=== PATIENT | female | born 1955 | race Caucasian/White ===

== ENCOUNTER 2018-02-26 10:04 | Inpatient (IN) | payer BC ==
--- NOTE | 2018-02-26 11:55 | PDOC ---
History of Present Illness - General Chief Complaint: Edema Stated Complaint: EDEMA, BLURRY VISION Time Seen by Provider: 02/26/18 11:53 History Source: Patient Exam Limitations: Other (Pt poor historian, poor compliance) - History of Present Illness Initial Comments: Pt is a 63 yo F, with PMH of IDDM and HTN, who is presenting with complaints of blurry vision, dyspnea when walking, and worsening b/l LE edema. Pt states starting about 3 weeks ago, she has "not been feeling herself" as she has been taking care of her in the hospital. She has not been taking any of her medications as prescribed. She admits to blurry vision (chronic "retina" issue, which she sees ophthomology for), worsening dyspnea with exertion, and b/l LE edema. She has been taking Lasix from her PCP (Dr. Naidu) last week, which helped the b/l edema minimally, but has not completely improved. PT states she is completely out of her metformin and valsartan. BGM at home yesterday was 150. Pt has been taking cefuroxime BID for cellulitis of the L arm, which she states occurred after scratching from a "bed bug" infestation. Pt denies any fevers/chills, headache, chest pain, palpitations, nausea/vomiting, abdominal pain, urinary symptoms, blood in urine or stool, diarrhea/constipation, or leg swelling. Social: Pt denies any cigarette, alcohol, or drug use. Pt denies any recent travel or sick contacts. Surgical: no relevant history Family: no relevant history 02/26/18 15:47 Past History - Travel Traveled outside of the country in the last 30 days: No Close contact w/someone who was outside of country & ill: No - Past Medical History Allergies/Adverse Reactions: Allergies Allergy/AdvReac Type Severity Reaction Status Date / Time No Known Allergies Allergy Verified 02/26/18 12:36 Home Medications: Ambulatory Orders Amlodipine Besylate [Norvasc -] 5 mg PO DAILY tablet 06/22/15 Insulin (Levemir) [Levemir Vial] 12 units SQ HS ml 06/22/15 Insulin (Levemir) [Levemir Vial] 15 units SQ AM ml 06/22/15 Multivitamins [Multivit ([facility] Formulary)] 1 tab PO DAILY tab 06/22/15 Valsartan [Diovan] 80 mg PO DAILY tablet 06/22/15 Metformin HCl ER 750 mg PO BID 08/16/15 Ammonium Lactate Cream [Lac-Hydrin 12% Cream -] 1 applic TP DAILY #1 tube COPD: No DVT: No Diabetes: Yes GI Disorders: Yes (IBS) HTN: Yes Hypercholesterolemia: No - Surgical History Cardiac Surgery: No Lung Surgery: No - Immunization History Immunization Up to Date: Yes - Suicide/Smoking/Psychosocial Hx Smoking History: Never smoked Have you smoked in the past 12 months: No Information on smoking cessation initiated: No Hx Alcohol Use: No Drug/Substance Use Hx: No Substance Use Type: None Hx Substance Use Treatment: No Review of Systems - Review of Systems Able to Perform ROS?: Yes Is the patient limited Occitan proficient: No Constitutional: Yes: Weight Stable. No: Chills, Diaphoresis, Fever, Loss of Appetite, Weakness HEENTM: Yes: See HPI, Blurred Vision. No: Recent change in vision, Double Vision, Nose Congestion, Throat Pain, Difficulty Swallowing Respiratory: Yes: Shortness of Breath, SOB with Exertion. No: Cough, Orthopnea , SOB at Rest, Wheezing, Productive cough, Hemoptysis Cardiac (ROS): Yes: See HPI, Edema, Lightheadedness. No: Chest Pain, Irregular Heart Rate, Palpitations, Syncope, Chest Tightness ABD/GI: No: Blood Streaked Bowels, Constipated, Diarrhea, Nausea, Poor Appetite , Poor Fluid Intake, Vomiting, Indigestion, Tarry Stools : No: Burning, Dysuria, Frequency, Hematuria, Pain, Urgency Musculoskeletal: No: Back Pain, Joint Pain Integumentary: No: Rash Neurological: No: Headache, Numbness, Seizure, Weakness, Unsteady Gait, Ataxia, Dizziness Psychiatric: No: Sleep Pattern Change, Change in Appetite Endocrine: No: Increased Urine, Change in Weight Hematologic/Lymphatic: Yes: Anemia. No: Blood Clots, Easy Bleeding, Easy Bruising All Other Systems: Reviewed and Negative *Physical Exam - Vital Signs Last Vital Signs Temp Pulse Resp BP Pulse Ox 98.2 F 78 16 132/70 100 02/26/18 10:15 02/26/18 10:15 02/26/18 10:15 02/26/18 10:15 02/26/18 10:15 - Physical Exam General Appearance: Yes: Nourished, Appropriately Dressed, Obese. No: Apparent Distress HEENT: positive: EOMI, DOMINIQUE, Normal ENT Inspection, Normal Voice, Pharynx Normal , Hearing Grossly Normal. negative: Scleral Icterus (R), Scleral Icterus (L), Pharyngeal Erythema, Tonsillar Exudate, Tonsillar Erythema, Rhinorrhea Neck: positive: Trachea midline, Normal Thyroid, Supple. negative: Tender, Rigid, Decreased range of motion, Lymphadenopathy (R), Lymphadenopathy (L), Rigidity Respiratory/Chest: positive: Rhonchi (coarse breath sounds b/l, worse at the bases). negative: Chest Tender, Lungs Clear, Normal Breath Sounds, Respiratory Distress, Accessory Muscle Use, Rapid RR, Decreased Breath Sounds, Crackles, Wheezing Cardiovascular: positive: Regular Rhythm, Regular Rate, S1, S2, Edema (b/l pitting edema up to mid-shins). negative: JVD, Murmur Vascular Pulses: Carotid (R): 4+, Carotid (L): 4+ Gastrointestinal/Abdominal: positive: Normal Bowel Sounds, Flat, Soft. negative : Tender, Organomegaly, Pulsatile Mass, Distended, Guarding, Rebound Rectal Exam: positive: heme negative stool, normal exam, normal rectal tone, hemorrhoids (mild external, no gross blood). negative: melena Lymphatic: negative: Adenopathy, Tenderness Musculoskeletal: positive: Normal Inspection. negative: CVA Tenderness, Decreased Range of Motion Extremity: positive: Normal Capillary Refill, Normal Range of Motion, Pelvis Stable, Pedal Edema (b/l pedal edema). negative: Normal Inspection, Tender, Cyanosis, Calf Tenderness Integumentary: positive: Normal Color, Dry, Warm. negative: Jaundice, Clammy, Diaphoresis, Rash, Ecchymosis Neurologic: positive: asset protection detective II-XII NML intact, Fully Oriented, Alert, Normal Mood/ Affect, Normal Response, Motor Strength 5/5 Moderate Sedation - Procedure Monitoring Vital Signs: Procedure Monitoring Vital Signs Temperature 98.2 F 02/26/18 10:15 Pulse Rate 78 02/26/18 10:15 Respiratory Rate 16 02/26/18 10:15 Blood Pressure 132/70 02/26/18 10:15 O2 Sat by Pulse Oximetry (%) 100 02/26/18 10:15 ED Treatment Course - LABORATORY CBC & Chemistry Diagram: 02/26/18 12:15 02/26/18 12:26 Medical Decision Making - Medical Decision Making Pt was seen at bedside, also will be seen by attending Dr. Bailey. Pt presenting with complaints of blurry vision, dyspnea when walking, and worsening b/l LE edema. Pt states starting about 3 weeks ago, she has "not been feeling herself" as she has been taking care of her in the hospital. She has not been taking any of her medications as prescribed. She admits to blurry vision (chronic "retina" issue, which she sees ophthomology for), worsening dyspnea with exertion, and b/l LE edema. She has been taking Lasix from her PCP (Dr. Naidu) last week, which helped the b/l edema minimally, but has not completely improved. PT states she is completely out of her metformin and valsartan. BGM at home yesterday was 150. Pt has been taking cefuroxime BID for cellulitis of the L arm, which she states occurred after scratching from a "bed bug" infestation. Pt denies any fevers/chills, headache, chest pain, palpitations, nausea/vomiting, abdominal pain, urinary symptoms, blood in urine or stool, diarrhea/constipation, or leg swelling. PE showed clear heart and lung sounds, b/l pitting edema up to mid shins. Considering medication non-compliance vs new CHF vs dependent extremity edema vs ACS. Minimal concern for PE/DVT at this time, as pitting edema is b/l and equal, no erythema or pain in legs, vitals stable. Ordered work-up including BGM, CBC, CMP, troponin, ECG, BNP, UA, and chest x- ray. Will continue to reassess pt and monitor for symptomatic improvement. 02/26/18 11:54 CBC: anemia (H/H 7.1/20.7) CMP generally WNL, glucose 188, pt has been non-compliant with medications. Trop .02, BNP 2195 (no baseline BNP for comparison). ECG: NSR, normal intervals, no ST segment changes. 02/26/18 13:53 Dr. Naidu's team (ELECTRIC ENGINE MECHANIC) in ER. She will see the pt, but is seeing other pts at this time. 02/26/18 14:32 [id number] RAD/CHEST PA & LAT Dyspnea, bilateral pedal edema, rule out cardiomegaly. Chest 2 views. Comparison study June 10, 2015. Midline trachea no evidence of widening of the superior mediastinum. Unremarkable contour of the thoracic aorta. Bilateral pleural effusions, left greater than left with bilateral compressive atelectasis. Prominent cardiac silhouette. No evidence of vascular congestive changes. No bulky hilar adenopathy is seen. The visualized osseous structures appear intact. Impression. Bilateral pleural effusions, left greater than the right with compressive atelectasis. No pneumothorax is seen. No evidence of widening of the superior mediastinum. The pulmonary vasculature is normal. Prominent cardiac silhouette. 02/26/18 14:52 Stool for occult blood sent to lab to r/o any bleed. Ordered b/l LE doppler to r/o DVT. 02/26/18 15:42 Pt taken for US. Dr. Naidu's team will see the pt. Fecal occult negative for blood. 02/26/18 16:08 LE doppler showed no evidence of DVT. 02/26/18 18:48 Pt lying comfortably, awaiting bed upstairs. 02/26/18 18:57 *DC/Admit/Observation/Transfer Diagnosis at time of Disposition: Pedal edema Acute heart failure Qualifiers: Heart failure type: unspecified Qualified Code(s): I50.9 - Heart failure, unspecified Diabetes mellitus Qualifiers: Diabetes mellitus type: type 2 Diabetes mellitus assisted insulin use: with middle or intermediate school principal use Diabetes mellitus complication status: with unspecified complications Qualified Code(s): E11.8 - Type 2 diabetes mellitus with unspecified complications - Discharge Dispostion Condition at time of disposition: Stable Decision to Admit order: Yes - Referrals - Patient Instructions - Post Discharge Activity
[2018-02-26 12:47] LABS: BASO % 1.6 % (0-2.0); EOS % 6.3 % (0-4.5); HEMATOCRIT 20.7 % (32.4-45.2); HEMOGLOBIN 7.1 GM/dL (10.7-15.3); LYMPH % 15.9 % (8-40); MEAN CELL VOLUME 79.3 fl (80-96); MEAN PLT VOLUME 7.1 fl (7.5-11.1); MONO % 7.2 % (3.8-10.2); PLATELET COUNT 275 K/MM3 (134-434); RBC 2.62 M/mm3 (3.60-5.2); RDW 14.4 % (11.6-15.6); WHITE BLOOD COUNT 5.8 K/mm3 (4.0-10.0)
[2018-02-26 13:08] LABS: URINE APPEARANCE CLEAR; URINE BILIRUBIN NEGATIVE (<2.0 mg/dL); URINE COLOR LTYELLOW; URINE GLUCOSE (UA) 2+ (NEGATIVE); URINE KETONE NEGATIVE (NEGATIVE); URINE LEUK ESTERASE TRACE (NEGATIVE); URINE NITRITE NEGATIVE (NEGATIVE); URINE PROTEIN 2+ (NEGATIVE); URINE UROBILINOGEN NEGATIVE mg/dL (0.2-1.0)
[2018-02-26 13:10] LABS: ALBUMIN 2.8 g/dl (3.4-5.0); ALK PHOS 88 U/L (45-117); ANION GAP 8 MMOL/L (8-16); BILIRUBIN,TOTAL 0.3 mg/dL (0.2-1); BLOOD UREA NITROGEN 42 mg/dL (7-18); CALCIUM 8.1 mg/dL (8.5-10.1); CHLORIDE 104 mmol/L (98-107); CO2 23 mmol/L (21-32); CREATININE 0.8 mg/dL (0.55-1.3); GLUCOSE,RANDOM 188 mg/dL (74-106); N-TERMINAL BNP 2195.8 pg/ml (5-125); POTASSIUM 4.1 mmol/L (3.5-5.1); SGOT/AST 22 U/L (15-37); SGPT/ALT 24 U/L (13-61); SODIUM 136 mmol/L (136-145); TOT PROT 6.4 g/dl (6.4-8.2)
[2018-02-26 13:15] LABS: EPI CELLS RARE /HPF (FEW); URINE HYALINE CAST 1 /lpf
--- NOTE | 2018-02-26 16:13 | PDOC ---
Attending Attestation - Medical Decision Making EXAM#: TYPE/EXAM: RESULT: [id number] RAD/CHEST PA LAT Impression. Bilateral pleural effusions, left greater than the right with compressive atelectasis. No pneumothorax is seen. No evidence of widening of the superior mediastinum. The pulmonary vasculature is normal. Prominent cardiac silhouette. Reported By: Jeremias Olsen MD 02/26/18 13:54 Documentation prepared by SUNITHA Paz, acting as medical consultant for Fany Bailey MD. 02/26/18 16:32 <Renate Willams - Last Filed: 02/26/18 16:32> - Resident Resident Name: Abbie Norton - ED Attending Attestation I have performed the following: I have examined & evaluated the patient, The case was reviewed & discussed with the resident, I agree w/resident's findings & plan, Exceptions are as noted - HPI HPI: 02/26/18 16:47 The patient is a 63 year old female, with a significant PMH of DM (not compliant with meds) and HTN, who presents to the ED today complaining of dyspnea with exertion, and progressively worsening bilateral LE edema for weeks. Patient states she feels SOB with walking, and both of her legs continue to swell. Patient reports feeling weak and not like herself for weeks, which has progressively worsened with time. Patient saw Dr. Naidu, who put her on Lasix which slightly helped her bilateral LE edema. She also reports progressively worsening blurry vision for 1 year for which she is getting evaluated for by her group exercise instructor. Denies worsening vision recently. No headache. The patient denies chest pain, and dizziness. No recent immobility or surgery. Denies fever, chills, nausea, vomit, diarrhea and constipation. Denies dysuria, frequency, urgency and hematuria. Allergies: NKA Past surgical history: None reported Social history: No reported PCP: Dr. Naidu - Physicial Exam PE: 02/26/18 16:50 GENERAL: Awake, alert, and fully oriented, in no acute distress EYES: PERRLA, EOMI, sclera anicteric, conjunctiva clear ENT: Oropharynx clear without exudates. Moist mucosa NECK: Normal ROM, supple, no lymphadenopathy, JVD, or masses LUNGS: Breath sounds equal, diminished bibasilar BS, no crackles or wheezing HEART: Regular rate and rhythm, normal S1 and S2, no murmurs, rubs or gallops ABDOMEN: Soft, mild RUQ ttp, normoactive bowel sounds. No guarding, no rebound. No masses : No CVAT EXTREMITIES: Normal range of motion, 1+ pitting b/l LE edema, symmetric. No cords, erythema, or tenderness NEUROLOGICAL: Normal speech, cranial nerves intact, equal strength and sensation b/l SKIN: diffuse scattered excoriated erythematous papules without discharge or induration - Medical Decision Making 02/26/18 16:52 63yo F hx HTN, DM presents to the ED with SOB, progressive LE edema. Work up remarkable for b/l pleural effusions which are new as well as elevated BNP. Concern for new CHF. Will obtain US to eval for DVT given edema. No CP to suggest PE, and in light of new lung effusions and elevated BNP, more likely CHF. Pt admitted to Dr. Naidu for further w/u. Case signed out to Dr. Naidu's CRAB FISHERMAN by Dr. Norton Case discussed in detail with admitting physician including history, physical exam and ancillary studies. Admitting physician has assumed care for the patient, will follow all pending diagnostics and will complete the evaluation and treatment. <Fany Bailey - Last Filed: 02/26/18 18:11> Heart Score/ECG Review #1 02/26/18 16:51 Twelve-lead EKG was performed and reviewed by me. Normal sinus rhythm, rate 73. Normal axis and intervals. No ST elevations. <Fany Bailey - Last Filed: 02/26/18 18:11>
--- NOTE | 2018-02-26 16:46 | EKG ---
Test Reason : Blood Pressure : / mmHG Vent. Rate : 073 BPM Atrial Rate : 073 BPM P-R Int : 152 ms QRS Dur : 074 ms QT Int : 416 ms P-R-T Axes : 007 006 023 degrees QTc Int : 458 ms NORMAL SINUS RHYTHM NORMAL ECG NO PREVIOUS ECGS AVAILABLE Confirmed by DAINA CASAREZ MD ([id number]) on 02/26/2018 4:45:58 PM Referred By: Confirmed By:DAINA CASAREZ MD
--- NOTE | 2018-02-26 18:36 | HP ---
Admitting History and Physical - Primary Care Physician PCP: Meghan Naidu - Admission Chief Complaint: Bilateral lower extremity edema with SOB on exertion History of Present Illness: Patient is a 63 y/o female with past medical history IDDM and HTN. Patient states having bilateral lower extremity edema worsening over the past few weeks. Patient also complain of experiencing SOB on exertion, able to walk 2 blocks before feeling SOB. CXR shows bilateral pleural effusion, L>R with compressive atelectasis. EKG is NSR and vascular study B/L lower extremity neg for DVT. BNP elevated. History Source: Patient Limitations to Obtaining History: No Limitations - Past Medical History Cardiovascular: Yes: HTN ...: No Endocrine: Yes: Diabetes Mellitus - Past Surgical History Past Surgical History: Yes: None - Smoking History Smoking history: Never smoked Have you smoked in the past 12 months: No - Alcohol/Substance Use Hx Alcohol Use: No History of Substance Use: reports: None - Social History ADL: Independent History of Recent Travel: No Home Medications - Allergies Allergies/Adverse Reactions: Allergies Allergy/AdvReac Type Severity Reaction Status Date / Time No Known Allergies Allergy Verified 02/26/18 12:36 - Home Medications Home Medications: Ambulatory Orders Amlodipine Besylate [Norvasc -] 5 mg PO DAILY tablet 06/22/15 Insulin (Levemir) [Levemir Vial] 12 units SQ HS ml 06/22/15 Insulin (Levemir) [Levemir Vial] 15 units SQ AM ml 06/22/15 Multivitamins [Multivit ([facility] Formulary)] 1 tab PO DAILY tab 06/22/15 Valsartan [Diovan] 80 mg PO DAILY tablet 06/22/15 Metformin HCl ER 750 mg PO BID 08/16/15 Ammonium Lactate Cream [Lac-Hydrin 12% Cream -] 1 applic TP DAILY #1 tube Review of Systems - Review of Systems Constitutional: reports: No Symptoms Eyes: reports: Blurred Vision HENT: reports: No Symptoms Neck: reports: No Symptoms Cardiovascular: reports: Edema (B/L lower extremity) Respiratory: reports: SOB Gastrointestinal: reports: No Symptoms Genitourinary: reports: No Symptoms Breasts: reports: No Symptoms Reported Musculoskeletal: reports: No Symptoms Integumentary: reports: Erythema (RUE) Neurological: reports: No Symptoms Endocrine: reports: No Symptoms Hematology/Lymphatic: reports: No Symptoms Psychiatric: reports: No Symptoms Physical Examination Vital Signs: Vital Signs Temperature 98.2 F 02/26/18 10:15 Pulse Rate 76 02/26/18 14:56 Respiratory Rate 20 02/26/18 14:56 Blood Pressure 150/67 02/26/18 14:56 O2 Sat by Pulse Oximetry (%) 99 02/26/18 14:56 Constitutional: Yes: Well Nourished, No Distress, Calm Eyes: Yes: Conjunctiva Clear Neck: Yes: Supple Cardiovascular: Yes: Regular Rate and Rhythm Respiratory: Yes: Rhonchi Gastrointestinal: Yes: WNL, Normal Bowel Sounds, Soft Musculoskeletal: Yes: Muscle Weakness Extremities: Yes: Erythema (RUE) Edema: Yes Edema: LLE: 2+, RLE: 2+ Integumentary: Yes: Erythema (RUE) Neurological: Yes: Alert, Oriented Psychiatric: Yes: Alert, Oriented Labs: CBC, BMP 02/26/18 12:15 02/26/18 12:26 Imaging - Results Chest X-ray: Report Reviewed EKG: Report Reviewed Problem List - Problems (1) CHF (congestive heart failure) Code(s): I50.9 - HEART FAILURE, UNSPECIFIED (2) HTN (hypertension) Code(s): I10 - ESSENTIAL (PRIMARY) HYPERTENSION (3) Lower extremity edema Code(s): R60.0 - LOCALIZED EDEMA (4) Diabetes Code(s): E11.9 - TYPE 2 DIABETES MELLITUS WITHOUT COMPLICATIONS Qualifiers: Diabetes mellitus type: type 2 Diabetes mellitus termination clerk insulin use: with custodial use Diabetes mellitus complication status: with unspecified complications Qualified Code(s): E11.8 - Type 2 diabetes mellitus with unspecified complications; Z79.4 - shelter (current) use of insulin Assessment/Plan -cardiology consult -Hg 7.1-type and screen ordered, transfuse 2U PRBC -trend H/H -lasix 20mg qd for pleural effusion -BNP elevated, trend BNP -albuterol neb PRN for SOB -renal consult elevated BUN -trend H/H -cont with BP meds -BGM ACHS, cont metformin and levemir -urine culture pending -dvt ppx
[2018-02-26] MEDS ORDERED: ALBUTEROL SO4 0.083% IH SOL 2.5 MG/3 ML VIAL.NEB. NEB PRN (19:23)
--- NOTE | 2018-02-26 19:40 | PN ---
Progress Note (short form) - Note Progress Note: Hold off on PRBC transfusion due to CHF to avoid fluid overload. Fe, TIBC, Ferritin, Vitamin B12 ordered. Will trend H/H. Problem List - Problems (1) CHF (congestive heart failure) Code(s): I50.9 - HEART FAILURE, UNSPECIFIED (2) HTN (hypertension) Code(s): I10 - ESSENTIAL (PRIMARY) HYPERTENSION (3) Lower extremity edema Code(s): R60.0 - LOCALIZED EDEMA (4) Diabetes Code(s): E11.9 - TYPE 2 DIABETES MELLITUS WITHOUT COMPLICATIONS Qualifiers: Diabetes mellitus type: type 2 Diabetes mellitus penitentiary insulin use: with penitentiary use Diabetes mellitus complication status: with unspecified complications Qualified Code(s): E11.8 - Type 2 diabetes mellitus with unspecified complications; Z79.4 - custodial (current) use of insulin
[2018-02-26] MEDS ORDERED: INSULIN (LEVEMIR) 100 UNITS/ML UNITS SQ SCH (22:00)
[2018-02-26] MEDS: HEPARIN NA (PORCINE) 5,000 UNITS/ML 1ML VIAL SQ SCH (22:27)
[2018-02-27] MEDS ORDERED: INSULIN (LEVEMIR) 100 UNITS/ML UNITS SQ SCH (07:00)
[2018-02-27] MEDS ORDERED: INSULIN (NOVOLOG) ASPART 100 UNITS/ML 10ML VIAL ONE (07:02)
[2018-02-27 07:26] LABS: HEMATOCRIT 20.8 % (32.4-45.2); MCH 25.6 pg (25.7-33.7); MCHC 31.7 g/dl (32.0-36.0); MEAN CELL VOLUME 80.8 fl (80-96); MEAN PLT VOLUME 7.3 fl (7.5-11.1); PLATELET COUNT 255 K/MM3 (134-434); RBC 2.57 M/mm3 (3.60-5.2); RDW 15.2 % (11.6-15.6); WHITE BLOOD COUNT 6.6 K/mm3 (4.0-10.0)
[2018-02-27 07:50] LABS: HEMOGLOBIN 6.6 GM/dL (10.7-15.3)
[2018-02-27 08:13] LABS: ALBUMIN 2.5 g/dl (3.4-5.0); ALK PHOS 136 U/L (45-117); ANION GAP 7 MMOL/L (8-16); BILIRUBIN,TOTAL 0.2 mg/dL (0.2-1); BLOOD UREA NITROGEN 41 mg/dL (7-18); CALCIUM 8.2 mg/dL (8.5-10.1); CHLORIDE 107 mmol/L (98-107); CO2 23 mmol/L (21-32); CREATININE 0.9 mg/dL (0.55-1.3); GLUCOSE,RANDOM 100 mg/dL (74-106); N-TERMINAL BNP 2425.3 pg/ml (5-125); POTASSIUM 4.4 mmol/L (3.5-5.1); SGOT/AST 32 U/L (15-37); SGPT/ALT 32 U/L (13-61); SODIUM 138 mmol/L (136-145); TOT PROT 5.9 g/dl (6.4-8.2)
[2018-02-27] MEDS ORDERED: FUROSEMIDE 20 MG TABLET (FP) PO SCH (10:00)
[2018-02-27] MEDS ORDERED: FUROSEMIDE 40 MG/4 ML INJECTABLE VIAL IVPUSH SCH (10:00)
[2018-02-27] MEDS: VALSARTAN 80 MG TABLET (UD) PO SCH (10:13)
[2018-02-27] MEDS: amLODIPine BESYLATE 5 MG TABLET (FP) PO SCH (10:13)
[2018-02-27] MEDS: HEPARIN NA (PORCINE) 5,000 UNITS/ML 1ML VIAL SQ SCH (10:13)
--- NOTE | 2018-02-27 10:46 | PN ---
Progress Note, Physician Chief Complaint: ACUTE ON CHRONIC CHF History of Present Illness: NAD drop in h/h today transfuse 2 units of prbc with furosemide between the units start furosemide 40 mg IVP BID Cardiology consult pending Last echo 2015 with normal LVEF at 65%, would repeat - Current Medication List Current Medications: Active Medications Albuterol Sulfate (Ventolin 0.083% Nebulizer Soln -) 1 amp NEB Q6H PRN PRN Reason: SHORT OF BREATH/WHEEZING Amlodipine Besylate (Norvasc -) 5 mg PO DAILY [facility] Last Admin: 02/27/18 10:13 Dose: 5 mg Furosemide (Lasix Injection -) 40 mg IVPUSH ONCE ONE Stop: 02/27/18 12:01 Furosemide (Lasix Injection -) 40 mg IVPUSH BID [facility] Heparin Sodium (Porcine) (Heparin -) 5,000 unit SQ BID [facility] Last Admin: 02/27/18 10:13 Dose: 5,000 unit Insulin Detemir (Levemir Vial) 12 units SQ HS [facility] Last Admin: 02/26/18 22:27 Dose: 12 units Insulin Detemir (Levemir Vial) 15 units SQ AM [facility] Last Admin: 02/27/18 06:47 Dose: 15 units Metformin HCl (Glucophage Xr -) 750 mg PO DAILY@0700 [facility] Last Admin: 02/27/18 06:46 Dose: 750 mg Valsartan (Diovan -) 80 mg PO DAILY [facility] Last Admin: 02/27/18 10:13 Dose: 80 mg - Objective Vital Signs: Vital Signs Temperature 97.5 F L 02/27/18 06:00 Pulse Rate 74 02/27/18 06:00 Respiratory Rate 20 02/26/18 23:27 Blood Pressure 138/69 02/27/18 06:00 O2 Sat by Pulse Oximetry (%) 98 02/26/18 23:27 Constitutional: Yes: Well Nourished, No Distress, Calm Cardiovascular: Yes: Regular Rate and Rhythm Respiratory: Yes: Regular Gastrointestinal: Yes: Normal Bowel Sounds, Soft, Abdomen, Obese Musculoskeletal: Yes: Muscle Weakness Edema: Yes Edema: LLE: 2+, RLE: 2+ Peripheral Pulses WNL: Yes Neurological: Yes: Alert, Oriented Psychiatric: Yes: Alert, Oriented Labs: CBC, BMP 02/27/18 06:30 02/27/18 06:30 Problem List - Problems (1) Acute on chronic congestive heart failure Assessment/Plan: -Furosemide 40 mg IVP BID -Cardiology consult -daily weights -low sodium diet -RD consult Code(s): I50.9 - HEART FAILURE, UNSPECIFIED (2) Diabetes Assessment/Plan: -BGM AC HS -Diabetic diet -recheck A1c -outpatient non compliance? -On levemir 12 U PM and 15 U AM at home, decrease to 10 U BID -Add Januvia 100 mg po daily in am, in addition to metformin 750 mg XR to avoid any hypoglycemic events, given that her kidney fxn is essentially normal. -Novolog sliding scale -RD consult Code(s): E11.9 - TYPE 2 DIABETES MELLITUS WITHOUT COMPLICATIONS Qualifiers: Diabetes mellitus type: type 2 Diabetes mellitus fci insulin use: with rat exterminator use Diabetes mellitus complication status: with unspecified complications Qualified Code(s): E11.8 - Type 2 diabetes mellitus with unspecified complications; Z79.4 - retirement (current) use of insulin (3) HTN (hypertension) Assessment/Plan: -Continue amlodipine 5 mg po daily -Cardiology consult -Low sodium diet Code(s): I10 - ESSENTIAL (PRIMARY) HYPERTENSION (4) UTI (urinary tract infection) Assessment/Plan: -UC: Microbiology 02/26/18 12:45 Urine - Urine Clean Catch Urine Culture - Preliminary Group D Strep Or Entero Coccus -Has had E coli in urine in the past -Pt asymptomatic, afebrile, no leukocytosis -Would not treat unless indicated Code(s): N39.0 - URINARY TRACT INFECTION, SITE NOT SPECIFIED (5) Anemia Assessment/Plan: -transfuce 2 units PRBC with furosemide 40 mg IVP between the 2 units -Stool OB negative -Iron studies, thyroid panel, folate pending -B12 unremarkable -Anemia of chronic disease? -Hematology consult -monitor trend, avoid transfusions unless Hg below 7.0 to avoid fluid overload Code(s): D64.9 - ANEMIA, UNSPECIFIED Assessment/Plan see problem list Hold heparin until anemia work up is completely evaluated Physical therapy
[2018-02-27] MEDS ORDERED: FUROSEMIDE 40 MG/4 ML INJECTABLE VIAL IVPUSH ONE (12:00)
[2018-02-27 12:28] LABS: LDH 314 U/L (84-246)
--- NOTE | 2018-02-27 13:41 | CONSULT ---
Consult Consult Specialty:: HEMATOLOGY-ONCOLOGY Referred by:: Stephanie Lee NP Reason for Consultation:: anemia - History of Present Illness Chief Complaint: Anemia, presents with LE and sob History of Present Illness: 63 yr old woman with DMII on insulin, HTN, hx of right foot osteomyelitis, presents with increasing le edema and sob for past few days. Found to have b/l pleural effusions, L>R with compressive atelectasis, elevated BNP, BUN and worsening anemia. for the past week her apartment has had bedbugs and she has been bitten multiple times on her left arm, was treated with cefuroxime for left arm cellulitis. intermittent constipation for past 3 months steady weight gain since march. denies fevers, cough, hemetemesis, melena, hematochezia, nausea, vomiting, chest pain, easy bruising or prolonged bleeding at home. denies travel outside of [place] in years, no new medications. Last colonoscopy with Dr. Schwarz 5yrs ago without any polyps/hemorrhage/mass as per patient has not had a mammo in last few years SURGhx: right heel debridement for ulcer with dr. montez Pmhx: HTN, DM II SOChx: never smoker, denies etoh/illicit drug use, has a dog at home Fmhx: father with cardiac disease, denies famiyl hx of bleeding/coagulopathic d/ o or malignancies. - History Source History Provided By: Patient Limitations to Obtaining History: No Limitations - Past Medical History Cardio/Vascular: Yes: HTN ...: No Heme/Onc: Yes: Anemia Endocrine: Yes: Diabetes Mellitus - Past Surgical History Past Surgical History: Yes: None - Alcohol/Substance Use Hx Alcohol Use: No History of Substance Use: reports: None - Smoking History Smoking history: Never smoked Have you smoked in the past 12 months: No - Social History ADL: Independent History of Recent Travel: No Home Medications - Allergies Allergies/Adverse Reactions: Allergies Allergy/AdvReac Type Severity Reaction Status Date / Time No Known Allergies Allergy Verified 02/26/18 12:36 - Home Medications Home Medications: Ambulatory Orders Amlodipine Besylate [Norvasc -] 5 mg PO DAILY tablet 06/22/15 Insulin (Levemir) [Levemir Vial] 12 units SQ HS ml 06/22/15 Insulin (Levemir) [Levemir Vial] 15 units SQ AM ml 06/22/15 Multivitamins [Multivit ([facility] Form[facility])] 1 tab PO DAILY tab 06/22/15 Valsartan [Diovan] 80 mg PO DAILY tablet 06/22/15 Metformin HCl ER 750 mg PO BID 08/16/15 Ammonium Lactate Cream [Lac-Hydrin 12% Cream -] 1 applic TP DAILY #1 tube Family Disease History - Family Disease History Family Disease History: Heart Disease: Father Review of Systems - Review of Systems Constitutional: denies: Fever, Lethargy, Night Sweats Eyes: reports: No Symptoms HENT: reports: No Symptoms Neck: reports: No Symptoms Cardiovascular: reports: Shortness of Breath Respiratory: reports: No Symptoms Gastrointestinal: reports: Constipation Genitourinary: reports: No Symptoms Breasts: reports: No Symptoms Reported Musculoskeletal: reports: No Symptoms Integumentary: reports: No Symptoms Neurological: reports: No Symptoms Endocrine: reports: No Symptoms Hematology/Lymphatic: reports: No Symptoms Physical Exam Vital Signs: Vital Signs Temperature 97.2 F L 02/27/18 10:00 Pulse Rate 82 02/27/18 10:00 Respiratory Rate 20 02/27/18 10:00 Blood Pressure 161/78 02/27/18 10:00 O2 Sat by Pulse Oximetry (%) 98 02/27/18 09:00 Constitutional: Yes: Well Nourished, No Distress, Calm Eyes: Yes: Conjunctiva Clear, EOM Intact HENT: Yes: Atraumatic, Normocephalic Neck: Yes: Supple, Trachea Midline Cardiovascular: Yes: Regular Rate and Rhythm Respiratory: Yes: Regular, CTA Bilaterally Gastrointestinal: Yes: Normal Bowel Sounds, Soft. No: Tenderness Extremities: Yes: Cool Edema: Yes Edema: RLE: 1+ Peripheral Pulses WNL: Yes Integumentary: Yes: Erythema (left forearm, skin intact) Neurological: Yes: Alert, Oriented Psychiatric: Yes: Alert Labs: CBC, BMP 02/27/18 06:30 02/27/18 06:30 Imaging - Results Other: Other (Vasc for duplex negative) Assessment/Plan 63 yr old woman with DMII on insulin and HTN presents with SOB found to have n/ l pleural effusions and anemia. Problem List: HTN DM II - A1c 7.7 Anemia, microcytic A/P: wnl TSH and Vit b12, ferritin is low - unlikely anemia of chronic disease, either ISAEL/blood loss, RPI of 0.5%, more likely to be ISAEL, will await rest of w/ u pt is receiving 2 units of prbc's with lasix to prevent fluid overload Recommend consulting GI for GI evaluation to r/o GI bleed
--- NOTE | 2018-02-27 14:21 | CON.CARD ---
Consult Consult Specialty:: Cardiology - History of Present Illness History of Present Illness: 63 y/o female with past medical history IDDM and HTN. admitted with bilateral lower extremity edema worsening over the past few weeks. Patient also complain of experiencing SOB on exertion, able to walk 2 blocks before feeling SOB. CXR shows bilateral pleural effusion, L>R with compressive atelectasis. EKG is NSR and vascular study B/L lower extremity neg for DVT. she has severe anemia, BNP elevated. - Past Medical History Cardio/Vascular: Yes: HTN ...: No Endocrine: Yes: Diabetes Mellitus - Past Surgical History Past Surgical History: Yes: None - Alcohol/Substance Use Hx Alcohol Use: No History of Substance Use: reports: None - Smoking History Smoking history: Never smoked Have you smoked in the past 12 months: No - Social History ADL: Independent History of Recent Travel: No Home Medications - Allergies Allergies/Adverse Reactions: Allergies Allergy/AdvReac Type Severity Reaction Status Date / Time No Known Allergies Allergy Verified 02/26/18 12:36 - Home Medications Home Medications: Ambulatory Orders Amlodipine Besylate [Norvasc -] 5 mg PO DAILY tablet 06/22/15 Insulin (Levemir) [Levemir Vial] 12 units SQ HS ml 06/22/15 Insulin (Levemir) [Levemir Vial] 15 units SQ AM ml 06/22/15 Multivitamins [Multivit ([facility])] 1 tab PO DAILY tab 06/22/15 Valsartan [Diovan] 80 mg PO DAILY tablet 06/22/15 Metformin HCl ER 750 mg PO BID 08/16/15 Ammonium Lactate Cream [Lac-Hydrin 12% Cream -] 1 applic TP DAILY #1 tube Family Disease History - Family Disease History Family Disease History: Heart Disease: Father Review of Systems - Review of Systems Constitutional: reports: No Symptoms Eyes: reports: No Symptoms Neck: reports: No Symptoms Cardiovascular: reports: Edema, Shortness of Breath. denies: Chest Pain Respiratory: denies: Cough, Exercise Intolerance Gastrointestinal: reports: No Symptoms Genitourinary: reports: No Symptoms Vital Signs: Vital Signs Temperature 97.2 F L 02/27/18 10:00 Pulse Rate 82 02/27/18 10:00 Respiratory Rate 20 02/27/18 10:00 Blood Pressure 161/78 02/27/18 10:00 O2 Sat by Pulse Oximetry (%) 98 02/27/18 09:00 Constitutional: Yes: Well Nourished, No Distress Eyes: Yes: Conjunctiva Clear, EOM Intact HENT: Yes: Atraumatic, Normocephalic Neck: Yes: Supple, Trachea Midline Respiratory: Yes: Regular, Diminished, Dullness Gastrointestinal: Yes: Normal Bowel Sounds, Soft Cardiovascular: Yes: Regular Rate and Rhythm JVD: Yes Carotid Bruit: No Heart Sounds: Yes: S1, S2 Murmur: No: Systolic Murmur, Diastolic Murmur Edema: Yes Edema: LLE: 1+, RLE: 1+ - Other Data Labs, Other Data: CBC, BMP 02/27/18 06:30 02/27/18 06:30 Troponin, BNP 02/26/18 02/27/18 12:26 06:30 Troponin I 0.02 B-Natriuretic Peptide 2195.8 H 2425.3 H Troponin, BNP 02/26/18 02/27/18 12:26 06:30 Troponin I 0.02 B-Natriuretic Peptide 2195.8 H 2425.3 H Laboratory Tests 02/26/18 02/27/18 12:45 06:30 B-Natriuretic Peptide 2425.3 H Albumin 2.5 L TSH 2.24 Free T4 1.31 Urine Protein 2+ H NSR no ST T changes. Imaging - Results Chest X-ray: Report Reviewed EKG: Image Reviewed (NSR no ST T changes.) Problem List - Problems (1) Acute heart failure Code(s): I50.9 - HEART FAILURE, UNSPECIFIED Qualifiers: Heart failure type: unspecified Qualified Code(s): I50.9 - Heart failure, unspecified (2) Anemia Code(s): D64.9 - ANEMIA, UNSPECIFIED (3) HTN (hypertension) Code(s): I10 - ESSENTIAL (PRIMARY) HYPERTENSION Assessment/Plan 63 F diabetic with new edema, dyspnea. She is severely anemic with signs of volume overload. Continue to diurese with IV lasix 40mg BID Monitor daily weight and I/O Echocardiogram Transfuse 2 U PRBC and monitor for dyspnea due to volume load. May need additional diuresis after lasix.
--- NOTE | 2018-02-27 14:30 | CON.PULM ---
Consult Consult Specialty:: PULM/CCM Referred by:: SHERON Reason for Consultation:: SOB - History of Present Illness Chief Complaint: SOB History of Present Illness: 63 F, DMII on insulin, HTN, and right foot osteomyelitis. Reported exposure to bed bugs. History of progressive dyspnea on exertion and bilateral LE edema. No travel history or sick contacts. No overt fever or chills. No hemoptysis or night sweats. CXR: new bilateral pleural effusions compared to previous CXR. - History Source History Provided By: Patient Limitations to Obtaining History: No Limitations - Past Medical History Cardio/Vascular: Yes: HTN Pulmonary: No: COPD, O2 Dependent, Previously Intubated, Pulmonary Embolus, Pulmonary Fibrosis, Sleep Apnea ...: No Endocrine: Yes: Diabetes Mellitus - Past Surgical History Past Surgical History: Yes: None - Alcohol/Substance Use Hx Alcohol Use: No History of Substance Use: reports: None - Smoking History Smoking history: Never smoked Have you smoked in the past 12 months: No - Social History ADL: Independent History of Recent Travel: No Home Medications - Allergies Allergies/Adverse Reactions: Allergies Allergy/AdvReac Type Severity Reaction Status Date / Time No Known Allergies Allergy Verified 02/26/18 12:36 - Home Medications Home Medications: Ambulatory Orders Amlodipine Besylate [Norvasc -] 5 mg PO DAILY tablet 06/22/15 Insulin (Levemir) [Levemir Vial] 12 units SQ HS ml 06/22/15 Insulin (Levemir) [Levemir Vial] 15 units SQ AM ml 06/22/15 Multivitamins [Multivit ([facility])] 1 tab PO DAILY tab 06/22/15 Valsartan [Diovan] 80 mg PO DAILY tablet 06/22/15 Metformin HCl ER 750 mg PO BID 08/16/15 Ammonium Lactate Cream [Lac-Hydrin 12% Cream -] 1 applic TP DAILY #1 tube Family Disease History - Family Disease History Family Disease History: Heart Disease: Father Review of Systems - Review of Systems Constitutional: denies: Chills, Fever, Night Sweats, Unintentional Wgt. Loss HENT: reports: No Symptoms Neck: reports: No Symptoms Cardiovascular: reports: Edema, Shortness of Breath Respiratory: reports: Cough, Orthopnea, SOB, SOB on Exertion. denies: Hemoptysis, Snoring, Wheezing Gastrointestinal: reports: No Symptoms Genitourinary: reports: No Symptoms Breasts: reports: No Symptoms Reported Musculoskeletal: reports: No Symptoms Integumentary: reports: No Symptoms Neurological: reports: No Symptoms Endocrine: reports: No Symptoms Hematology/Lymphatic: reports: No Symptoms Psychiatric: reports: No Symptoms Physical Exam Vital Sings: Vital Signs Temperature 97.2 F L 02/27/18 10:00 Pulse Rate 82 02/27/18 10:00 Respiratory Rate 20 02/27/18 10:00 Blood Pressure 161/78 02/27/18 10:00 O2 Sat by Pulse Oximetry (%) 98 02/27/18 09:00 Constitutional: Yes: No Distress Eyes: Yes: Conjunctiva Clear, EOM Intact HENT: Yes: Atraumatic, Normocephalic Neck: Yes: Supple, Trachea Midline Cardiovascular: Yes: Regular Rate and Rhythm Respiratory: Yes: Diminished, Rhonchi. No: Accessory Muscle Use, Rales, SOB, SOB on Exertion, Stridor, Tachypnea, Wheezes ...Inspection: Yes: WNL ...Clubbing: No Gastrointestinal: Yes: Normal Bowel Sounds, Soft Renal/: Yes: WNL Musculoskeletal: Yes: WNL Extremities: Yes: WNL Edema: Yes Peripheral Pulses WNL: Yes Integumentary: Yes: WNL Neurological: Yes: Alert, Oriented ...Motor Strength: WNL Psychiatric: Yes: WNL, Alert, Oriented Labs: CBC, BMP 02/27/18 06:30 02/27/18 06:30 Imaging - Results Chest X-ray: Report Reviewed, Image Reviewed Problem List - Problems (1) Anemia Code(s): D64.9 - ANEMIA, UNSPECIFIED (2) CHF (congestive heart failure) Code(s): I50.9 - HEART FAILURE, UNSPECIFIED (3) Diabetes Code(s): E11.9 - TYPE 2 DIABETES MELLITUS WITHOUT COMPLICATIONS Qualifiers: Diabetes mellitus type: type 2 Diabetes mellitus buttermaker continuous churn insulin use: with fci use Diabetes mellitus complication status: with unspecified complications Qualified Code(s): E11.8 - Type 2 diabetes mellitus with unspecified complications; Z79.4 - medical terminologist (current) use of insulin (4) HTN (hypertension) Code(s): I10 - ESSENTIAL (PRIMARY) HYPERTENSION (5) Lower extremity edema Code(s): R60.0 - LOCALIZED EDEMA (6) Pedal edema Code(s): R60.0 - LOCALIZED EDEMA Assessment/Plan SOB due to bilateral pleural effusions with atelectasis and anemia. Do not suspect infectious process. (?) component of high output failure O2 as needed Normal transfusion thresholds Anemia workup Would monitor off ABX Can repeat CXR a an outpatient to document resolution of effusions (had previous normal CXR) Will follow Thank you. Dr Mace
--- NOTE | 2018-02-27 15:15 | CONSULT ---
Consult Consult Specialty:: Nephrology Reason for Consultation:: elevated creatinine - History of Present Illness Chief Complaint: shortness of breath History of Present Illness: Pt is a 63 year old female with pmhx of DM and HTN who presents to the ER complaining of blurry vision and shortness of breath. She also complains of lower ext edema. She was found to be anemic and admitted for transfusion. She says that she tried to take lasix for the edema but it did not help. She denies dysuria or hematuria. She denies chest pain. She denies fever or chills. She is on cefuroxime for arm cellulitis. She denies nsaid use. - History Source History Provided By: Patient - Past Medical History Cardio/Vascular: Yes: HTN ...: No Endocrine: Yes: Diabetes Mellitus - Past Surgical History Past Surgical History: Yes: None - Alcohol/Substance Use Hx Alcohol Use: No History of Substance Use: reports: None - Smoking History Smoking history: Never smoked Have you smoked in the past 12 months: No - Social History ADL: Independent History of Recent Travel: No Home Medications - Allergies Allergies/Adverse Reactions: Allergies Allergy/AdvReac Type Severity Reaction Status Date / Time No Known Allergies Allergy Verified 02/26/18 12:36 - Home Medications Home Medications: Ambulatory Orders Amlodipine Besylate [Norvasc -] 5 mg PO DAILY tablet 06/22/15 Insulin (Levemir) [Levemir Vial] 12 units SQ HS ml 06/22/15 Insulin (Levemir) [Levemir Vial] 15 units SQ AM ml 06/22/15 Multivitamins [Multivit ([facility])] 1 tab PO DAILY tab 06/22/15 Valsartan [Diovan] 80 mg PO DAILY tablet 06/22/15 Metformin HCl ER 750 mg PO BID 08/16/15 Ammonium Lactate Cream [Lac-Hydrin 12% Cream -] 1 applic TP DAILY #1 tube Family Disease History - Family Disease History Family Disease History: Heart Disease: Father Review of Systems - Review of Systems Constitutional: reports: Malaise Eyes: reports: Blurred Vision HENT: reports: No Symptoms Neck: reports: No Symptoms Cardiovascular: reports: Edema, Shortness of Breath Respiratory: reports: SOB, SOB on Exertion Gastrointestinal: reports: No Symptoms Genitourinary: reports: No Symptoms Musculoskeletal: reports: No Symptoms Neurological: reports: No Symptoms Endocrine: reports: No Symptoms Hematology/Lymphatic: reports: No Symptoms Psychiatric: reports: No Symptoms Physical Exam Vital Signs: Vital Signs Temperature 97.2 F L 02/27/18 10:00 Pulse Rate 82 02/27/18 10:00 Respiratory Rate 20 02/27/18 10:00 Blood Pressure 161/78 02/27/18 10:00 O2 Sat by Pulse Oximetry (%) 98 02/27/18 09:00 Constitutional: Yes: Calm HENT: Yes: Atraumatic Neck: Yes: Supple Cardiovascular: Yes: S1, S2 Respiratory: Yes: CTA Bilaterally Gastrointestinal: Yes: Soft, Abdomen, Obese Renal/: Yes: WNL Edema: Yes Edema: LLE: 1+, RLE: 1+ Integumentary: Yes: Erythema Neurological: Yes: Oriented Psychiatric: Yes: Oriented Labs: CBC, BMP 02/27/18 06:30 02/27/18 06:30 Laboratory Tests 06/19/15 06/21/15 06/22/15 05:40 05:35 05:40 Hgb Creatinine 0.4 L 0.4 L 0.4 L Urine Protein Urine Blood 02/26/18 02/26/18 02/27/18 12:15 12:45 06:30 Hgb 7.1 L 6.6 L* Creatinine Urine Protein 2+ H Urine Blood 2+ H 02/27/18 06:30 Hgb Creatinine 0.9 Urine Protein Urine Blood Imaging - Results Chest X-ray: Report Reviewed Assessment/Plan Current Medications Generic Name Dose Route Start Last Admin Trade Name Freq PRN Reason Stop Dose Admin Albuterol Sulfate 1 amp 02/26/18 19:23 Ventolin 0.083% Nebulizer Soln - NEB Q6H PRN SHORT OF BREATH/WHEEZING Amlodipine Besylate 5 mg 02/27/18 10:00 02/27/18 10:13 Norvasc - PO 5 mg DAILY SUSAN Administration Furosemide 40 mg 02/27/18 22:00 Lasix Injection - IVPUSH BID [facility] Insulin Detemir 10 units 02/27/18 22:00 Levemir Vial SQ BID@0700,2200 [facility] Metformin HCl 750 mg 02/27/18 07:00 02/27/18 06:46 Glucophage Xr - PO 750 mg DAILY@0700 SUSAN Administration Sitagliptin Phosphate 100 mg 02/28/18 07:00 Januvia - PO DAILY@0700 SUSAN Valsartan 80 mg 02/27/18 10:00 02/27/18 10:13 Diovan - PO 80 mg DAILY SUSAN Administration Impression 1. azotemia 2. anemia 3. proteinuria 4. pleural effusions 5. htn 6. dm 7. cellulitis Plan - cont lasix - check renal ultrasound - repeat us - check prt to wildland fire fighter specialist ratio - monitor hg Dr Story
[2018-02-27 21:20] LABS: URINE APPEARANCE CLEAR; URINE BILIRUBIN NEGATIVE (<2.0 mg/dL); URINE COLOR COLORLESS; URINE GLUCOSE (UA) NEGATIVE (NEGATIVE); URINE KETONE NEGATIVE (NEGATIVE); URINE LEUK ESTERASE NEGATIVE (NEGATIVE); URINE NITRITE NEGATIVE (NEGATIVE); URINE PROTEIN 1+ (NEGATIVE); URINE UROBILINOGEN NEGATIVE mg/dL (0.2-1.0)
[2018-02-27 21:26] LABS: URINE BACTERIA RARE /hpf (NONE SEEN)
[2018-02-27] MEDS: INSULIN (LEVEMIR) 100 UNITS/ML UNITS SQ SCH (21:30)
[2018-02-27] MEDS: FUROSEMIDE 40 MG/4 ML INJECTABLE VIAL IVPUSH SCH (21:30)
--- NOTE | 2018-02-27 23:01 | PN ---
Progress Note (short form) - Note Progress Note: 63F admitted through [facility] ER for evaluation of progressive bilateral lower extremity edema worsening over the past few weeks, along with progressive SOB on exertion. She was noted to have hgb of 7.1 on admission, 6.6 the next day. She received 2 units of blood since admission. She denies abdominal pain, unintentional weight loss, change in bowel habits, change in stool caliber, rectal bleeding or melena. She was followed at the [facility]. She believes that her last EGD and colonoscopy was performed by Dr. Rose 4-5 years ago and thinks they were performed for rectal bleeding. - Past Medical History Cardio/Vascular: Yes: HTN ...: No Endocrine: Yes: Diabetes Mellitus (DM II) - Past Surgical History Past Surgical History: Yes: None, Tonsillectomy Additional Surgical History: Wound debridements of B/L LE - Smoking History Smoking history: Never smoked - Social History Usual Living Arrangement: With Spouse ADL: Independent Occupation: Unemployed Place of : [facility] History of Recent Travel: No - Allergies Allergies/Adverse Reactions: Allergies Allergy/AdvReac Type Severity Reaction Status Date / Time No Known Allergies Allergy Verified 02/26/18 12:36 - Home Medications Home Medications: Ambulatory Orders Amlodipine Besylate [Norvasc -] 5 mg PO DAILY tablet 06/22/15 Insulin (Levemir) [Levemir Vial] 12 units SQ HS ml 06/22/15 Insulin (Levemir) [Levemir Vial] 15 units SQ AM ml 06/22/15 Multivitamins [Multivit ([facility] Formulary)] 1 tab PO DAILY tab 06/22/15 Valsartan [Diovan] 80 mg PO DAILY tablet 06/22/15 Metformin HCl ER 750 mg PO BID 08/16/15 Ammonium Lactate Cream [Lac-Hydrin 12% Cream -] 1 applic TP DAILY #1 tube Family Disease History - Family Disease History Family Disease History: Heart Disease: Father (: 78: heart problems and CVA) , Other: Father, Brother (1, alive: DM II), Sister (None), Son (None), Daughter (None) Other Family History: No family history of colorectal cancer or other GI malignancy Vital Signs: AFVSS Constitutional: Yes: Calm Eyes: No: Sclera Icterus Cardiovascular: Yes: Regular Rate and Rhythm. No: Murmur Respiratory: Yes: Diminished (at bases bilaterally) Gastrointestinal Inspection: No: Distention, Scars ...Auscultate: Yes: Normoactive Bowel Sounds ...Palpate: Yes: Soft. No: Hepatomegaly, Splenomegaly, Tenderness Edema: LLE: 1+, RLE: 1+ Assessment/Plan: Microcytic anemia, with low iron saturation suggesting iron deficiency. Symptomatic, likely contributing to her SOB + ? component of chronic disease For GI w/u
[2018-02-28 02:12] LABS: URINE CREATININE < 13.0 mg/dL (30-50)
[2018-02-28 02:40] LABS: RATIO URIN PROTEIN/URIN CREAT 2.2 MG/DL
[2018-02-28 04:15] LABS: SERUM IRON SATURATION 7 % (15-55); TOTAL IRON BINDING CAPACITY 329 ug/dL (250-450); UIBC 305 ug/dL (118-369)
[2018-02-28] MEDS ORDERED: PT OWN MED DRAWER 7, Y5N ONE (05:45)
[2018-02-28] MEDS: INSULIN (LEVEMIR) 100 UNITS/ML UNITS SQ SCH (06:26)
[2018-02-28] MEDS: sitaGLIPtin PHOSPHATE 100 MG TABLET (FP) PO SCH (06:27)
[2018-02-28 09:21] LABS: BASO % 1.8 % (0-2.0); EOS % 7.9 % (0-4.5); HEMATOCRIT 31.5 % (32.4-45.2); HEMOGLOBIN 10.4 GM/dL (10.7-15.3); LYMPH % 21.4 % (8-40); MCH 26.3 pg (25.7-33.7); MEAN CELL VOLUME 79.6 fl (80-96); MEAN PLT VOLUME 7.2 fl (7.5-11.1); MONO % 7.6 % (3.8-10.2); NEUT % 61.3 % (42.8-82.8); PLATELET COUNT 302 K/MM3 (134-434); RBC 3.96 M/mm3 (3.60-5.2); RDW 14.5 % (11.6-15.6); WHITE BLOOD COUNT 6.9 K/mm3 (4.0-10.0)
[2018-02-28 09:31] LABS: INR 0.98 (0.83-1.09); PROTHROMBIN TIME (PATIENT) 11.6 SEC (9.7-13.0)
[2018-02-28 09:34] LABS: ACTIVATED PTT 28.9 SECONDS (25.2-36.5)
[2018-02-28 10:07] LABS: ALBUMIN 3.1 g/dl (3.4-5.0); ALK PHOS 155 U/L (45-117); ANION GAP 9 MMOL/L (8-16); BILIRUBIN,TOTAL 0.5 mg/dL (0.2-1); BLOOD UREA NITROGEN 38 mg/dL (7-18); CALCIUM 8.6 mg/dL (8.5-10.1); CHLORIDE 105 mmol/L (98-107); CO2 26 mmol/L (21-32); CREATININE 0.9 mg/dL (0.55-1.3); GLUCOSE,RANDOM 77 mg/dL (74-106); POTASSIUM 4.5 mmol/L (3.5-5.1); SGOT/AST 39 U/L (15-37); SGPT/ALT 42 U/L (13-61); SODIUM 140 mmol/L (136-145)
--- NOTE | 2018-02-28 10:07 | ECHO ---
Name: MARCEL MENDEZ Exam:Adult Echocardiogram Study Date: 02/28/2018 08:26 AM Age: 63 yrs Reason For Study: Arrhythmia Height: 61 in Weight: 161 lb BSA: 1.7 m2 MMode/2D Measurements & Calculations IVSd: 1.0 cm Ao root diam: 2.4 cm LVIDd: 4.5 cm LA dimension: 3.9 cm LVIDs: 3.2 cm LVPWd: 0.95 cm EDV(Teich): 93.4 ml LAV (MOD-bp): 62.7 ml ESV(Teich): 41.6 ml Doppler Measurements & Calculations MV E max chaparro: 97.9 cm/sec MR max chaparro: 475.6 cm/sec MV A max chaparro: 80.8 cm/sec MR max P.8 mmHg MV E/A: 1.2 MV dec time: 0.12 sec TR max chaparro: 331.6 cm/sec Med Peak E' Chaparro: 5.4 cm/sec TR max P.0 mmHg Med E/e': 18.0 Lat Peak E' Chaparro: 7.2 cm/sec Lat E/e': 13.6 PI Vmax: 126.2 cm/sec Left Ventricle Left ventricular systolic function is mildly reduced. Ejection Fraction = 45%. There is mild to moder ate lateral wall hypokinesis. The inferolateral wall appear moderately hypokinetic. Right Ventricle The right ventricle is normal in size and function. Atria The left atrium is mildly dilated. Mitral Valve The mitral valve is grossly normal. There is no mitral valve stenosis. There is mild to moderate mitr al regurgitation. Tricuspid Valve The tricuspid valve is normal in structure and function. There is mild tricuspid regurgitation. There was insufficient TR detected to calculate RV systolic pressure. Aortic Valve The aortic valve opens well. No hemodynamically significant valvular aortic stenosis. Pulmonic Valve The pulmonic valve is not well seen, but is grossly normal. There is no pulmonic valvular stenosis. M ild pulmonic valvular regurgitation. Great Vessels The aortic root is normal size. Pericardium/Pleura There is no pericardial effusion. There is a pleural effusion present. Interpretation Summary Left ventricular systolic function is mildly reduced. Ejection Fraction = 45%. There is mild to moderate lateral wall hypokinesis. The inferolateral wall appear moderately hypokinetic. The right ventricle is normal in size and function. The left atrium is mildly dilated. There is mild to moderate mitral regurgitation. There is mild tricuspid regurgitation. There was insufficient TR detected to calculate RV systolic pressure. There is a pleural effusion present. MD Horton *Lan 02/28/2018 10:07 AM
[2018-02-28] MEDS: VALSARTAN 80 MG TABLET (UD) PO SCH (10:18)
[2018-02-28] MEDS: FUROSEMIDE 40 MG/4 ML INJECTABLE VIAL IVPUSH SCH ×2 (10:18→21:08)
[2018-02-28] MEDS: amLODIPine BESYLATE 5 MG TABLET (FP) PO SCH (10:18)
--- NOTE | 2018-02-28 11:55 | PN ---
Progress Note, Physician Chief Complaint: patient seen and examined in bed s/p 2 units prbc got echo done renal sono pending - Current Medication List Current Medications: Active Medications Albuterol Sulfate (Ventolin 0.083% Nebulizer Soln -) 1 amp NEB Q6H PRN PRN Reason: SHORT OF BREATH/WHEEZING Amlodipine Besylate (Norvasc -) 5 mg PO DAILY [facility] Last Admin: 02/28/18 10:18 Dose: 5 mg Furosemide (Lasix Injection -) 40 mg IVPUSH BID [facility] Last Admin: 02/28/18 10:18 Dose: 40 mg Insulin Detemir (Levemir Vial) 10 units SQ BID@0700,2200 [facility] Last Admin: 02/28/18 06:26 Dose: Not Given Metformin HCl (Glucophage Xr -) 750 mg PO DAILY@0700 [facility] Last Admin: 02/28/18 06:27 Dose: 750 mg Sitagliptin Phosphate (Januvia -) 100 mg PO DAILY@0700 [facility] Last Admin: 02/28/18 06:27 Dose: 100 mg Valsartan (Diovan -) 80 mg PO DAILY [facility] Last Admin: 02/28/18 10:18 Dose: 80 mg - Objective Vital Signs: Vital Signs Temperature 97.5 F L 02/28/18 06:00 Pulse Rate 80 02/28/18 06:00 Respiratory Rate 20 02/28/18 06:00 Blood Pressure 150/80 02/28/18 06:00 O2 Sat by Pulse Oximetry (%) 98 02/27/18 20:26 Constitutional: Yes: Calm, Thin Cardiovascular: Yes: Regular Rate and Rhythm, S1, S2 Respiratory: Yes: Diminished Gastrointestinal: Yes: Normal Bowel Sounds, Soft Neurological: Yes: Alert, Oriented Labs: CBC, BMP 02/28/18 08:45 02/28/18 08:45 INR, PTT INR 0.98 (0.83-1.09) 02/28/18 08:45 Problem List - Problems (1) Acute on chronic congestive heart failure Assessment/Plan: echo noted with ejection fraction 45% hypokinesis of the inferolateral wall iv lasix bid repeat cxr Code(s): I50.9 - HEART FAILURE, UNSPECIFIED (2) Anemia Assessment/Plan: s/p 2 units prbc appropriate increase in h/h iron panel noted iron def anemia will give venofer Code(s): D64.9 - ANEMIA, UNSPECIFIED (3) Diabetes Assessment/Plan: hgba1c noted 7.7 levemir bid bgm noted will hold levemir for now on oral hypoglycemic Code(s): E11.9 - TYPE 2 DIABETES MELLITUS WITHOUT COMPLICATIONS Qualifiers: Diabetes mellitus type: type 2 Diabetes mellitus buttermaker insulin use: with custodial use Diabetes mellitus complication status: with unspecified complications Qualified Code(s): E11.8 - Type 2 diabetes mellitus with unspecified complications; Z79.4 - lobsterman (current) use of insulin (4) Azotemia Assessment/Plan: renal on board renal sono pending Code(s): R79.89 - OTHER SPECIFIED ABNORMAL FINDINGS OF BLOOD CHEMISTRY
[2018-02-28] MEDS ORDERED: IRON SUCROSE INJECTION 200 MG in SODIUM CHLORIDE 90 ML IVPB ONE (11:59)
--- NOTE | 2018-02-28 12:08 | PN ---
Progress Note (short form) - Note Progress Note: PULMONARY APPEARS COMFORTABLE IN BED LESS SOB POST TRANSFUSION VSS Constitutional: Yes: No Distress Eyes: Yes: Conjunctiva Clear, EOM Intact HENT: Yes: Atraumatic, Normocephalic Neck: Yes: Supple, Trachea Midline Cardiovascular: Yes: Regular Rate and Rhythm Respiratory: Yes: Diminished, Rhonchi. No: Accessory Muscle Use, Rales, SOB, SOB on Exertion, Stridor, Tachypnea, Wheezes ...Inspection: Yes: WNL ...Clubbing: No Gastrointestinal: Yes: Normal Bowel Sounds, Soft Renal/: Yes: WNL Musculoskeletal: Yes: WNL Extremities: Yes: WNL Edema: Yes Peripheral Pulses WNL: Yes Integumentary: Yes: WNL Neurological: Yes: Alert, Oriented ...Motor Strength: WNL Psychiatric: Yes: WNL, Alert, Oriented HGB 10.4 GMS POST TWO UNITS HYPOCHROMIC/MICROCYTIC INDICIES WITH LOW FERRITIN Chest X-ray: Report Reviewed, Image Reviewed Problem List - Problems (1) Anemia Code(s): D64.9 - ANEMIA, UNSPECIFIED (2) CHF (congestive heart failure) Code(s): I50.9 - HEART FAILURE, UNSPECIFIED (3) Diabetes Code(s): E11.9 - TYPE 2 DIABETES MELLITUS WITHOUT COMPLICATIONS Qualifiers: Diabetes mellitus type: type 2 Diabetes mellitus alf insulin use: with rat exterminator use Diabetes mellitus complication status: with unspecified complications Qualified Code(s): E11.8 - Type 2 diabetes mellitus with unspecified complications; Z79.4 - senior living (current) use of insulin (4) HTN (hypertension) Code(s): I10 - ESSENTIAL (PRIMARY) HYPERTENSION (5) Lower extremity edema Code(s): R60.0 - LOCALIZED EDEMA (6) Pedal edema Code(s): R60.0 - LOCALIZED EDEMA Assessment/Plan SOB due to bilateral pleural effusions with atelectasis and anemia Likely due to combo of anemia/chf O2 as needed Normal transfusion thresholds Anemia/renal insuff workup underway Would monitor off ABX Can repeat CXR a an outpatient to document resolution of effusions (had previous normal CXR) Will follow Serina HENLEY MD
[2018-02-28 12:09] VITALS: BMI 29.5
--- NOTE | 2018-02-28 14:06 | PN ---
Progress Note, Physician Chief Complaint: No dyspnea More energetic. Echo showed EF 45% History of Present Illness: 63 y/o female with past medical history IDDM and HTN. admitted with bilateral lower extremity edema worsening over the past few weeks. Patient also complain of experiencing SOB on exertion, able to walk 2 blocks before feeling SOB. CXR shows bilateral pleural effusion, L>R with compressive atelectasis. EKG is NSR and vascular study B/L lower extremity neg for DVT. she has severe anemia, BNP elevated. - Current Medication List Current Medications: Active Medications Albuterol Sulfate (Ventolin 0.083% Nebulizer Soln -) 1 amp NEB Q6H PRN PRN Reason: SHORT OF BREATH/WHEEZING Amlodipine Besylate (Norvasc -) 5 mg PO DAILY [facility] Last Admin: 02/28/18 10:18 Dose: 5 mg Furosemide (Lasix Injection -) 40 mg IVPUSH BID [facility] Last Admin: 02/28/18 10:18 Dose: 40 mg Insulin Aspart (Novolog Vial Sliding Scale -) [address] [facility]; Protocol Insulin Detemir (Levemir Vial) 10 units SQ BID@0700,2200 [facility] Last Admin: 02/28/18 06:26 Dose: Not Given Metformin HCl (Glucophage Xr -) 750 mg PO DAILY@0700 [facility] Last Admin: 02/28/18 06:27 Dose: 750 mg Sitagliptin Phosphate (Januvia -) 100 mg PO DAILY@0700 [facility] Last Admin: 02/28/18 06:27 Dose: 100 mg Valsartan (Diovan -) 80 mg PO DAILY [facility] Last Admin: 02/28/18 10:18 Dose: 80 mg - Objective Vital Signs: Vital Signs Temperature 97.5 F L 02/28/18 06:00 Pulse Rate 80 02/28/18 06:00 Respiratory Rate 20 02/28/18 06:00 Blood Pressure 150/80 02/28/18 06:00 O2 Sat by Pulse Oximetry (%) 98 02/27/18 20:26 Constitutional: Yes: Well Nourished, No Distress Eyes: Yes: Conjunctiva Clear HENT: Yes: Atraumatic, Normocephalic Neck: Yes: Supple, Trachea Midline Cardiovascular: Yes: Regular Rate and Rhythm, S1, S2 Respiratory: Yes: Regular, Diminished Gastrointestinal: Yes: Normal Bowel Sounds Edema: Yes Edema: LLE: 1+, RLE: 1+ Labs: CBC, BMP 02/28/18 08:45 02/28/18 08:45 INR, PTT INR 0.98 (0.83-1.09) 02/28/18 08:45 Problem List - Problems (1) Acute heart failure Code(s): I50.9 - HEART FAILURE, UNSPECIFIED Qualifiers: Qualified Code(s): I50.9 - Heart failure, unspecified (2) Anemia Code(s): D64.9 - ANEMIA, UNSPECIFIED (3) HTN (hypertension) Code(s): I10 - ESSENTIAL (PRIMARY) HYPERTENSION Assessment/Plan Echocardiogram demostrates mild global hypokinesis. Her volume status has improved with IV diuretics. Would transition to oral diuretics. Continue ARB. Out patient cardiology follow up with repeat echocardiogram and ischemia evaluation as out patient is advised. Will see as needed.
--- NOTE | 2018-02-28 14:07 | PN ---
Progress Note (short form) - Note Progress Note: ID consult dictated imp/reccd 63 yo female with DM and HTN admitted with bilateral anemia , LUKE and lower extremity swelling no fevers no dysuria found to have severe anemia s/p transfusion now feeling better no urinary complaints UA is negative +urine culture asymptomatic bacteriuria no need to treat history of VRE heel ulcer- currently on contact isolation, if rectal swab is negative, can d/c isolation anemia- per PMD please call back if needed Problem List - Problems (1) Asymptomatic bacteriuria Code(s): R82.71 - BACTERIURIA (2) Anemia Code(s): D64.9 - ANEMIA, UNSPECIFIED
--- NOTE | 2018-02-28 14:44 | CONS ---
DATE OF CONSULTATION: DATE OF DICTATION: 02/28/2018 REQUESTING PHYSICIAN: Meghan Naidu MD HISTORY: This is a 63-year-old woman who presents to the hospital with complaints of bilateral lower extremity edema, dyspnea, and swelling of her legs. She was found to be severely anemia with a hemoglobin of 6.6. She is in the process of having an anemia workup. She received some blood and reports her shortness of breath has improved. Her lower extremity edema as resolved as well. I am asked to see her for positive urine culture. She has no history of fevers or chills. She has no dysuria. She has no flank pain. She, otherwise, feels well. PAST MEDICAL HISTORY: Notable for history of diabetes and hypertension. She had a history in 2016 of a fairly severe right leg infection and required aggressive operative debridement and management, and she completed a course of long-term antibiotics at that time. She has done well since. The foot has been well healed. ALLERGIES: She has no known drug allergies. MEDICATIONS: As an outpatient include valsartan, multivitamins, metformin, insulin, Norvasc, and Lac-Hydrin cream. SOCIAL HISTORY: She lives in the community. There is no history of any cigarette or substance use. Of note, she had a recent bedbug infestation, and she developed itching and erythema of her left arm, which is subsiding, and it is improved tremendously. REVIEW OF SYSTEMS: She denies any hematemesis, melena, hematochezia. Reports she had a colonoscopy 5 years ago. As per HPI. FAMILY HISTORY: Notable for cardiac disease. PHYSICAL EXAMINATION: General: This is a 63-year-old woman lying comfortably in bed in no acute distress. Vital Signs: She has been afebrile since admission. Temperature 97.5, pulse 80, blood pressure 150/80, respiratory rate 20. She weighs 70 kg. HEENT: She is normocephalic. Her eyes are anicteric. Neck: Supple. Lungs: Clear to auscultation. She has diminished breath sounds at the bases. Heart: Regular rate and rhythm. Abdomen: Soft and nontender. Extremities: Without edema. DIAGNOSTIC DATA: Chest x-ray reveals cardiomegaly with some bibasilar pleural effusions. White count is 6.9, hemoglobin 10.4, platelet count 302. BUN 38, creatinine 0.9. Urinalysis is negative. No leukocytes and no white cells. Urine culture is greater than 100,000 Enterococcus faecalis. She has a prior culture from 2016 of her right heel that grew a VRE. In summary, this is a 63-year-old woman admitted for symptomatic anemia who is status post transfusion feeling better. She has no urinary complaints with a negative urinalysis and a positive urine culture. I suspect this is asymptomatic bacteriuria. No need to treat. 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 She is currently in isolation contact. If rectal swab is negative, can stop her isolation. Anemia per PMD. Please call back as needed. CRISTELA SIMEON M.D. [id number]
--- NOTE | 2018-02-28 15:47 | CON.GI ---
Consult Consult Specialty:: GI: For Dr. Rendon Referred by:: Dr. Pak Reason for Consultation:: Anemia - History of Present Illness Chief Complaint: Shortness of breath History of Present Illness: 63F admitted through [facility] ER for evaluation of progressive bilateral lower extremity edema worsening over the past few weeks, along with progressive SOB on exertion, able to walk 2 blocks before feeling SOB. CXR on admission showed bilateral pleural effusion, L>R with compressive atelectasis. She was noted to have hgb of 7.1 on admission, 6.6 the next day. Her BNP was elevated as well. She received 2 units of blood since admission. She denies abdominal pain, unintentional weight loss, change in bowel habits, change in stool caliber, rectal bleeding or melena. She was followed at the [facility]. She believes that her last EGD and colonoscopy was performed by Dr. Rose 4-5 years ago and thinks they were performed for rectal bleeding. She thinks that small polyps were found in the colon while the upper endoscopy was unrevealing. There is no family history of colorectal cancer or other GI malignancy. - History Source History Provided By: Patient, Medical Record - Past Medical History Cardio/Vascular: Yes: HTN ...: No Endocrine: Yes: Diabetes Mellitus (DM II) - Past Surgical History Past Surgical History: Yes: None, Tonsillectomy Additional Surgical History: Wound debridements of B/L LE - Alcohol/Substance Use Hx Alcohol Use: No History of Substance Use: reports: None - Smoking History Smoking history: Never smoked Have you smoked in the past 12 months: No - Social History Usual Living Arrangement: With Spouse ADL: Independent Occupation: Unemployed Place of : [facility] History of Recent Travel: No Home Medications - Allergies Allergies/Adverse Reactions: Allergies Allergy/AdvReac Type Severity Reaction Status Date / Time No Known Allergies Allergy Verified 02/26/18 12:36 - Home Medications Home Medications: Ambulatory Orders Amlodipine Besylate [Norvasc -] 5 mg PO DAILY tablet 06/22/15 Insulin (Levemir) [Levemir Vial] 12 units SQ HS ml 06/22/15 Insulin (Levemir) [Levemir Vial] 15 units SQ AM ml 06/22/15 Multivitamins [Multivit ([facility] Formul[facility])] 1 tab PO DAILY tab 06/22/15 Valsartan [Diovan] 80 mg PO DAILY tablet 06/22/15 Metformin HCl ER 750 mg PO BID 08/16/15 Ammonium Lactate Cream [Lac-Hydrin 12% Cream -] 1 applic TP DAILY #1 tube Family Disease History - Family Disease History Family Disease History: Heart Disease: Father (: 78: heart problems and CVA) , Other: Father, Brother (1, alive: DM II), Sister (None), Son (None), Daughter (None) Other Family History: No family history of colorectal cancer or other GI malignancy Review of Systems - Review of Systems Constitutional: denies: Chills, Fever, Unintentional Wgt. Loss Cardiovascular: reports: Edema. denies: Chest Pain Respiratory: reports: SOB, SOB on Exertion Gastrointestinal: denies: Abdominal Pain, Constipation, Diarrhea, Dysphagia, Indigestion, Melena, Nausea, Rectal Bleeding, Vomiting, Vomiting Blood Physical Exam-GI Vital Signs: Vital Signs Temperature 97.5 F L 02/28/18 06:00 Pulse Rate 80 02/28/18 06:00 Respiratory Rate 20 02/28/18 06:00 Blood Pressure 150/80 02/28/18 06:00 O2 Sat by Pulse Oximetry (%) 98 02/27/18 20:26 Constitutional: Yes: Calm Eyes: No: Sclera Icterus Cardiovascular: Yes: Regular Rate and Rhythm. No: Murmur Respiratory: Yes: Diminished (at bases bilaterally) Gastrointestinal Inspection: No: Distention, Scars ...Auscultate: Yes: Normoactive Bowel Sounds ...Palpate: Yes: Soft. No: Hepatomegaly, Splenomegaly, Tenderness ...Rectal Exam: Yes: Other (+ external skin tags, no masses, light brown stool in rectal vault, guaiac negative) Edema: Yes Edema: LLE: 1+, RLE: 1+ Neurological: Yes: Alert, Oriented Labs: CBC, BMP 02/28/18 08:45 02/28/18 08:45 INR, PTT INR 0.98 (0.83-1.09) 02/28/18 08:45 Hepatic Panel Total Bilirubin 0.5 mg/dL (0.2-1) 02/28/18 08:45 AST 39 U/L (15-37) H 02/28/18 08:45 ALT 42 U/L (13-61) 02/28/18 08:45 Alkaline Phosphatase 155 U/L (45-117) H 02/28/18 08:45 Albumin 3.1 g/dl (3.4-5.0) L 02/28/18 08:45 02/26/18 15:40 Stool Occult Blood Negative 02/27/18 02/27/18 06:30 06:30 Iron 24 L Iron Saturation 7 L Ferritin 36.7 Problem List - Problems (1) Anemia Assessment/Plan: Microcytic anemia, with low iron saturation suggesting component of iron deficiency. Symptomatic, likely contributing to her SOB Clinically improved For further evaluation of her anemia, to exclude intraluminal sources of iron deficiency such as bleeding blood vessels, polyps, cancers of the intestinal tract such as colon cancer, we discussed upper endoscopy and colonoscopy. We discussed potential risks of the procedures like but not limited to bleeding, perforation requiring surgery to repair, infection and sedation medication effects all of which could be potentially life threatening. She has agreed to the procedure If she is cleared from a cardiopulmonary standpoint, this will be tentatively on saturday 03/03 Monitor for overt GI bleeding Code(s): D64.9 - ANEMIA, UNSPECIFIED Qualifiers: Anemia type: iron deficiency
[2018-02-28] MEDS ORDERED: INSULIN SLIDING SCALE (NOVOLOG) 1 VIAL SQ SCH (16:30)
--- NOTE | 2018-02-28 16:43 | PN ---
Progress Note, Physician History of Present Illness: Pt seen and examined at bedside. She is awake and alert. She feels that her lower ext edema is improved. - Current Medication List Current Medications: Active Medications Albuterol Sulfate (Ventolin 0.083% Nebulizer Soln -) 1 amp NEB Q6H PRN PRN Reason: SHORT OF BREATH/WHEEZING Amlodipine Besylate (Norvasc -) 5 mg PO DAILY [facility] Last Admin: 02/28/18 10:18 Dose: 5 mg Bisacodyl (Dulcolax -) 20 mg PO ONCE ONE Stop: 03/02/18 14:01 Furosemide (Lasix Injection -) 40 mg IVPUSH BID [facility] Last Admin: 02/28/18 10:18 Dose: 40 mg Insulin Aspart (Novolog Vial Sliding Scale -) 1 vial SQ ACHS [facility]; Protocol Insulin Detemir (Levemir Vial) 10 units SQ BID@0700,2200 [facility] Last Admin: 02/28/18 06:26 Dose: Not Given Metformin HCl (Glucophage Xr -) 750 mg PO DAILY@0700 [facility] Last Admin: 02/28/18 06:27 Dose: 750 mg Sitagliptin Phosphate (Januvia -) 100 mg PO DAILY@0700 [facility] Last Admin: 02/28/18 06:27 Dose: 100 mg Valsartan (Diovan -) 80 mg PO DAILY [facility] Last Admin: 02/28/18 10:18 Dose: 80 mg - Objective Vital Signs: Vital Signs Temperature 97.5 F L 02/28/18 06:00 Pulse Rate 80 02/28/18 06:00 Respiratory Rate 20 02/28/18 06:00 Blood Pressure 150/80 02/28/18 06:00 O2 Sat by Pulse Oximetry (%) 98 02/27/18 20:26 Constitutional: Yes: Calm Eyes: Yes: Conjunctiva Clear HENT: Yes: Atraumatic Neck: Yes: Supple Cardiovascular: Yes: S1, S2 Respiratory: Yes: CTA Bilaterally Gastrointestinal: Yes: Soft, Abdomen, Obese Musculoskeletal: Yes: WNL Edema: Yes Edema: LLE: Trace, RLE: Trace Neurological: Yes: Oriented Psychiatric: Yes: Oriented Labs: CBC, BMP 02/28/18 08:45 02/28/18 08:45 INR, PTT INR 0.98 (0.83-1.09) 02/28/18 08:45 Assessment/Plan Current Medications Generic Name Dose Route Start Last Admin Trade Name Freq PRN Reason Stop Dose Admin Albuterol Sulfate 1 amp 02/26/18 19:23 Ventolin 0.083% Nebulizer Soln - NEB Q6H PRN SHORT OF BREATH/WHEEZING Amlodipine Besylate 5 mg 02/27/18 10:00 02/28/18 10:18 Norvasc - PO 5 mg DAILY [facility] Administration Bisacodyl 20 mg 03/02/18 14:00 Dulcolax - PO 03/02/18 14:01 ONCE ONE Furosemide 40 mg 02/27/18 22:00 02/28/18 10:18 Lasix Injection - IVPUSH 40 mg BID [facility] Administration Insulin Aspart 1 vial 02/28/18 16:30 Novolog Vial Sliding Scale - SQ ACHS [facility] Protocol Insulin Detemir 10 units 02/27/18 22:00 02/28/18 06:26 Levemir Vial SQ Not Given BID@0700,2200 [facility] Metformin HCl 750 mg 02/27/18 07:00 02/28/18 06:27 Glucophage Xr - PO 750 mg DAILY@0700 [facility] Administration Sitagliptin Phosphate 100 mg 02/28/18 07:00 02/28/18 06:27 Januvia - PO 100 mg DAILY@0700 [facility] Administration Valsartan 80 mg 02/27/18 10:00 02/28/18 10:18 Diovan - PO 80 mg DAILY [facility] Administration Impression 1. azotemia 2. anemia 3. proteinuria 4. pleural effusions 5. htn 6. dm 7. cellulitis Plan - cont to monitor renal function - hg is improving - change lasix to PO tomorrow - renal ultrasound reviewed - will need outpt ckd workup - check spep - monitor hg Dr Story
[2018-02-28] MEDS: INSULIN SLIDING SCALE (NOVOLOG) 1 VIAL SQ SCH ×2 (17:13→21:11)
[2018-03-01] MEDS ORDERED: PT OWN MED DRAWER 7, Y5N ONE (06:08)
[2018-03-01] MEDS: sitaGLIPtin PHOSPHATE 100 MG TABLET (FP) PO SCH (06:09)
[2018-03-01] MEDS: INSULIN SLIDING SCALE (NOVOLOG) 1 VIAL SQ SCH ×4 (06:09→22:03)
[2018-03-01 08:55] LABS: BASO % 1.2 % (0-2.0); EOS % 7.3 % (0-4.5); HEMATOCRIT 32.4 % (32.4-45.2); HEMOGLOBIN 10.5 GM/dL (10.7-15.3); LYMPH % 15.1 % (8-40); MCH 25.9 pg (25.7-33.7); MCHC 32.3 g/dl (32.0-36.0); MEAN CELL VOLUME 80.1 fl (80-96); MEAN PLT VOLUME 6.9 fl (7.5-11.1); MONO % 8.7 % (3.8-10.2); NEUT % 67.7 % (42.8-82.8); PLATELET COUNT 291 K/MM3 (134-434); RBC 4.04 M/mm3 (3.60-5.2); RDW 14.8 % (11.6-15.6); WHITE BLOOD COUNT 8.5 K/mm3 (4.0-10.0)
[2018-03-01 09:33] LABS: ALBUMIN 2.8 g/dl (3.4-5.0); ALK PHOS 131 U/L (45-117); ANION GAP 9 MMOL/L (8-16); BILIRUBIN,TOTAL 0.4 mg/dL (0.2-1); BLOOD UREA NITROGEN 37 mg/dL (7-18); CALCIUM 8.3 mg/dL (8.5-10.1); CHLORIDE 100 mmol/L (98-107); CO2 26 mmol/L (21-32); CREATININE 1.1 mg/dL (0.55-1.3); GLUCOSE,RANDOM 156 mg/dL (74-106); POTASSIUM 4.3 mmol/L (3.5-5.1); SGOT/AST 32 U/L (15-37); SGPT/ALT 34 U/L (13-61); SODIUM 135 mmol/L (136-145); TOT PROT 6.8 g/dl (6.4-8.2)
[2018-03-01] MEDS: FUROSEMIDE 40 MG/4 ML INJECTABLE VIAL IVPUSH SCH (10:52)
[2018-03-01] MEDS: VALSARTAN 80 MG TABLET (UD) PO SCH (10:52)
[2018-03-01] MEDS: amLODIPine BESYLATE 5 MG TABLET (FP) PO SCH (10:52)
--- NOTE | 2018-03-01 11:22 | PN ---
Progress Note (short form) - Note Progress Note: PULMONARY APPEARS COMFORTABLE IN BED LESS SOB POST TRANSFUSION VSS Constitutional: Yes: No Distress Eyes: Yes: Conjunctiva Clear, EOM Intact HENT: Yes: Atraumatic, Normocephalic Neck: Yes: Supple, Trachea Midline Cardiovascular: Yes: Regular Rate and Rhythm Respiratory: Yes: Diminished, Rhonchi. No: Accessory Muscle Use, Rales, SOB, SOB on Exertion, Stridor, Tachypnea, Wheezes ...Inspection: Yes: WNL ...Clubbing: No Gastrointestinal: Yes: Normal Bowel Sounds, Soft Renal/: Yes: WNL Musculoskeletal: Yes: WNL Extremities: Yes: WNL Edema: Yes Peripheral Pulses WNL: Yes Integumentary: Yes: WNL Neurological: Yes: Alert, Oriented ...Motor Strength: WNL Psychiatric: Yes: WNL, Alert, Oriented HGB 10.4 GMS POST TWO UNITS HYPOCHROMIC/MICROCYTIC INDICIES WITH LOW FERRITIN Chest X-ray: Report Reviewed, Image Reviewed Problem List - Problems (1) Anemia Code(s): D64.9 - ANEMIA, UNSPECIFIED (2) CHF (congestive heart failure) Code(s): I50.9 - HEART FAILURE, UNSPECIFIED (3) Diabetes Code(s): E11.9 - TYPE 2 DIABETES MELLITUS WITHOUT COMPLICATIONS Qualifiers: Diabetes mellitus type: type 2 Diabetes mellitus detention insulin use: with dishing machine operator use Diabetes mellitus complication status: with unspecified complications Qualified Code(s): E11.8 - Type 2 diabetes mellitus with unspecified complications; Z79.4 - assisted (current) use of insulin (4) HTN (hypertension) Code(s): I10 - ESSENTIAL (PRIMARY) HYPERTENSION (5) Lower extremity edema Code(s): R60.0 - LOCALIZED EDEMA (6) Pedal edema Code(s): R60.0 - LOCALIZED EDEMA Assessment/Plan SOB due to bilateral pleural effusions with atelectasis and anemia Likely due to combo of anemia/chf O2 as needed diuretics/cardio note reviewed cleared for inpatient endoscopic procedures as planned from a Pulmonary standpoint Serina HENLEY MD
--- NOTE | 2018-03-01 14:46 | PN ---
GI Progress Note Subjective: GI NOte: No overt bleeding since admission. No abdominal pain. I have advised that Corinna undergo an EGD and colonoscopy with her present. I informed them of the potential for such complications as perforation and hemorrhage. She has signed an informed consent. I will prep for for Saturday. She has been cleared by Dr. Mcginnis. Will ask cardiology to clear for these endoscopies. - Objective Vital Signs: Vital Signs Temperature 97.9 F 03/01/18 08:00 Pulse Rate 83 03/01/18 08:00 Respiratory Rate 20 03/01/18 08:00 Blood Pressure 155/79 03/01/18 08:00 O2 Sat by Pulse Oximetry (%) 95 03/01/18 08:00 Laboratory Tests 06/10/15 06/17/15 06/22/15 22:30 05:40 05:40 Hgb 12.7 9.4 L 8.6 L 08/19/15 02/26/18 02/27/18 10:55 12:15 06:30 Hgb 11.3 D 7.1 L 6.6 L* 03/01/18 08:00 Hgb 10.5 L Constitutional: No Distress ...Auscultate: Yes: Normoactive Bowel Sounds ...Palpate: Yes: Soft, Other (nontender) Labs: CBC, BMP 03/01/18 08:00 03/01/18 08:00 INR, PTT INR 0.98 (0.83-1.09) 02/28/18 08:45 Assessment/Plan Consent and pulmonary clearance obtained If cleared by cardiology will proceed with EGD and colonoscopy on 04/03/07 Problem List - Problems (1) Anemia Assessment/Plan: Given her anemia severity an EGD and colonoscopy will be undertaken to excluding bleeding form ulcers, GERD, AVMs, neoplasm and other etiologies Code(s): D64.9 - ANEMIA, UNSPECIFIED Qualifiers: Anemia type: iron deficiency (2) History of colon polyps Code(s): Z86.010 - PERSONAL HISTORY OF COLONIC POLYPS (3) Diabetes Code(s): E11.9 - TYPE 2 DIABETES MELLITUS WITHOUT COMPLICATIONS Qualifiers: Diabetes mellitus type: type 2 Diabetes mellitus terminal block assembler insulin use: with terminal block assembler use Diabetes mellitus complication status: with unspecified complications Qualified Code(s): E11.8 - Type 2 diabetes mellitus with unspecified complications; Z79.4 - [facility]FP (current) use of insulin (4) HTN (hypertension) Code(s): I10 - ESSENTIAL (PRIMARY) HYPERTENSION (5) CHF (congestive heart failure) Code(s): I50.9 - HEART FAILURE, UNSPECIFIED
--- NOTE | 2018-03-01 15:32 | PN ---
Progress Note, Physician Chief Complaint: ACUTE ON CHRONIC CHF History of Present Illness: NAD start furosemide 40 mg IVP BID Cardiology consult Echo done this admission, LVEF 45%, mild global hypokinesis H/H stable - Current Medication List Current Medications: Active Medications Albuterol Sulfate (Ventolin 0.083% Nebulizer Soln -) 1 amp NEB Q6H PRN PRN Reason: SHORT OF BREATH/WHEEZING Amlodipine Besylate (Norvasc -) 5 mg PO DAILY [facility] Last Admin: 03/01/18 10:52 Dose: 5 mg Bisacodyl (Dulcolax -) 20 mg PO ONCE ONE Stop: 03/02/18 14:01 Furosemide (Lasix Injection -) 40 mg IVPUSH BID [facility] Last Admin: 03/01/18 10:52 Dose: 40 mg Insulin Aspart (Novolog Vial Sliding Scale -) 1 vial SQ [facility]; Protocol Last Admin: 03/01/18 10:54 Dose: Not Given Insulin Detemir (Levemir Vial) 10 units SQ BID@0700,2200 [facility] Last Admin: 02/28/18 06:26 Dose: Not Given Metformin HCl (Glucophage Xr -) 750 mg PO DAILY@0700 [facility] Last Admin: 03/01/18 06:09 Dose: 750 mg Polyethylene Glycol (Miralax (For Daily Use) -) 17 gm PO TID [facility] Sitagliptin Phosphate (Januvia -) 100 mg PO DAILY@0700 [facility] Last Admin: 03/01/18 06:09 Dose: 100 mg Valsartan (Diovan -) 80 mg PO DAILY [facility] Last Admin: 03/01/18 10:52 Dose: 80 mg - Objective Vital Signs: Vital Signs Temperature 97.7 F 03/01/18 14:53 Pulse Rate 89 03/01/18 14:53 Respiratory Rate 20 03/01/18 14:53 Blood Pressure 129/62 03/01/18 14:53 O2 Sat by Pulse Oximetry (%) 95 03/01/18 08:00 Constitutional: Yes: Well Nourished, No Distress, Calm Cardiovascular: Yes: Regular Rate and Rhythm Respiratory: Yes: Regular Gastrointestinal: Yes: Normal Bowel Sounds, Soft Genitourinary: Yes: WNL Musculoskeletal: Yes: WNL Extremities: Yes: WNL Edema: Yes Edema: LLE: Trace, RLE: Trace Peripheral Pulses WNL: Yes Neurological: Yes: Alert, Oriented Psychiatric: Yes: Alert, Oriented Labs: CBC, BMP 03/01/18 08:00 03/01/18 08:00 INR, PTT INR 0.98 (0.83-1.09) 02/28/18 08:45 Problem List - Problems (1) Acute on chronic congestive heart failure Assessment/Plan: -Furosemide 40 mg IVP BID -Cardiology consult -daily weights -low sodium diet -RD consult Code(s): I50.9 - HEART FAILURE, UNSPECIFIED (2) Diabetes Assessment/Plan: -BGM AC HS -Diabetic diet -A1c 7.7 -outpatient non compliance? -On levemir 12 U PM and 15 U AM at home, decrease to 10 U BID -Add Januvia 100 mg po daily in am, in addition to metformin 750 mg XR to avoid any hypoglycemic events, given that her kidney fxn is essentially normal. -Novolog sliding scale -RD consult Code(s): E11.9 - TYPE 2 DIABETES MELLITUS WITHOUT COMPLICATIONS Qualifiers: Diabetes mellitus type: type 2 Diabetes mellitus terminal worker insulin use: with fci use Diabetes mellitus complication status: with unspecified complications Qualified Code(s): E11.8 - Type 2 diabetes mellitus with unspecified complications; Z79.4 - terminal worker (current) use of insulin (3) HTN (hypertension) Assessment/Plan: -Continue amlodipine 5 mg po daily -Cardiology consult -Low sodium diet Code(s): I10 - ESSENTIAL (PRIMARY) HYPERTENSION (4) UTI (urinary tract infection) Assessment/Plan: -UC: Microbiology 02/27/18 19:12 Rectal Swab VRE Culture - Final NO VREF ISOLATED 02/26/18 12:45 Urine - Urine Clean Catch Urine Culture - Final Enterococcus Faecalis -Has had E coli in urine in the past -Pt asymptomatic, afebrile, no leukocytosis -Would not treat unless indicated Code(s): N39.0 - URINARY TRACT INFECTION, SITE NOT SPECIFIED (5) Anemia Assessment/Plan: -Stool OB negative -Iron studies show ISAEL -thyroid panel, folate essentially normal -B12 unremarkable -Hematology consult -monitor trend, avoid transfusions unless Hg below 7.0 to avoid fluid overload -Seen by GI -EGD and colonoscopy saturday once cleared by cardiology Code(s): D64.9 - ANEMIA, UNSPECIFIED Qualifiers: Anemia type: iron deficiency Assessment/Plan see problem list Hold heparin until anemia work up is completely evaluated Physical therapy
--- NOTE | 2018-03-01 15:51 | PN ---
Progress Note, Physician Chief Complaint: Resting comfortably History of Present Illness: This is a 63 y/o female with past medical history IDDM and HTN. admitted with bilateral lower extremity edema worsening over the past few weeks. Patient also complain of experiencing SOB on exertion, able to walk 2 blocks before feeling SOB. CXR shows bilateral pleural effusion, L>R with compressive atelectasis. EKG is NSR and vascular study B/L lower extremity neg for DVT. she has severe anemia, BNP elevated. Echocardiogram 02/28/18 EF 45% lateral wall hypokinesis, mild to moderate MR. - Current Medication List Current Medications: Active Medications Albuterol Sulfate (Ventolin 0.083% Nebulizer Soln -) 1 amp NEB Q6H PRN PRN Reason: SHORT OF BREATH/WHEEZING Amlodipine Besylate (Norvasc -) 5 mg PO DAILY [facility] Last Admin: 03/01/18 10:52 Dose: 5 mg Bisacodyl (Dulcolax -) 20 mg PO ONCE ONE Stop: 03/02/18 14:01 Ferrous Sulfate (Feosol -) 325 mg PO DAILY [facility] Furosemide (Lasix Injection -) 40 mg IVPUSH BID [facility] Last Admin: 03/01/18 10:52 Dose: 40 mg Insulin Aspart (Novolog Vial Sliding Scale -) 1 vial SQ ACHS [facility]; Protocol Last Admin: 03/01/18 10:54 Dose: Not Given Insulin Detemir (Levemir Vial) 10 units SQ BID@0700,2200 [facility] Last Admin: 02/28/18 06:26 Dose: Not Given Metformin HCl (Glucophage Xr -) 750 mg PO DAILY@0700 [facility] Last Admin: 03/01/18 06:09 Dose: 750 mg Polyethylene Glycol (Miralax (For Daily Use) -) 17 gm PO TID [facility] Sitagliptin Phosphate (Januvia -) 100 mg PO DAILY@0700 [facility] Last Admin: 03/01/18 06:09 Dose: 100 mg Valsartan (Diovan -) 80 mg PO DAILY [facility] Last Admin: 03/01/18 10:52 Dose: 80 mg - Objective Vital Signs: Vital Signs Temperature 97.7 F 03/01/18 14:53 Pulse Rate 89 03/01/18 14:53 Respiratory Rate 20 03/01/18 14:53 Blood Pressure 129/62 03/01/18 14:53 O2 Sat by Pulse Oximetry (%) 95 03/01/18 08:00 Constitutional: Yes: No Distress HENT: Yes: WNL Neck: Yes: WNL Cardiovascular: Yes: Regular Rate and Rhythm, S1, S2 (No murmurs) Respiratory: Yes: Regular Gastrointestinal: Yes: Normal Bowel Sounds, Soft Extremities: Yes: WNL Neurological: Yes: Alert, Oriented Labs: CBC, BMP 03/01/18 08:00 03/01/18 08:00 INR, PTT INR 0.98 (0.83-1.09) 02/28/18 08:45 Assessment/Plan 63 y/o female with past medical history IDDM and HTN. admitted with bilateral lower extremity edema worsening over the past few weeks. Patient also complain of experiencing SOB on exertion, able to walk 2 blocks before feeling SOB. CXR shows bilateral pleural effusion, L>R with compressive atelectasis. EKG is NSR and vascular study B/L lower extremity neg for DVT. she has severe anemia, BNP elevated. Echocardiogram 02/28/18 EF 45% lateral wall hypokinesis, mild to moderate MR. Echocardiogram demostrates mild global hypokinesis. Her volume status has improved with IV diuretics. Would transition to oral diuretics. Continue ARB. Out patient cardiology follow up with repeat echocardiogram and ischemia evaluation as out patient is advised. There are no cardiac contraindications to EGD and/or colonoscopy
[2018-03-01] MEDS: FERROUS SO4 325 MG TABLET (FP) PO SCH (16:03)
--- NOTE | 2018-03-01 16:56 | PN ---
Progress Note, Physician History of Present Illness: Pt seen and examined at bedside. She is awake and alert. She denies dysuria or hematuria. - Current Medication List Current Medications: Active Medications Albuterol Sulfate (Ventolin 0.083% Nebulizer Soln -) 1 amp NEB Q6H PRN PRN Reason: SHORT OF BREATH/WHEEZING Amlodipine Besylate (Norvasc -) 5 mg PO DAILY [facility] Last Admin: 03/01/18 10:52 Dose: 5 mg Bisacodyl (Dulcolax -) 20 mg PO ONCE ONE Stop: 03/02/18 14:01 Ferrous Sulfate (Feosol -) 325 mg PO DAILY [facility] Last Admin: 03/01/18 16:03 Dose: 325 mg Furosemide (Lasix -) 40 mg PO BID@0600,1400 [facility] Insulin Aspart (Novolog Vial Sliding Scale -) 1 vial SQ ACHS [facility]; Protocol Last Admin: 03/01/18 15:45 Dose: Not Given Insulin Detemir (Levemir Vial) 10 units SQ BID@0700,2200 [facility] Last Admin: 02/28/18 06:26 Dose: Not Given Metformin HCl (Glucophage Xr -) 750 mg PO DAILY@0700 [facility] Last Admin: 03/01/18 06:09 Dose: 750 mg Polyethylene Glycol (Miralax (For Daily Use) -) 17 gm PO TID [facility] Sitagliptin Phosphate (Januvia -) 100 mg PO DAILY@0700 [facility] Last Admin: 03/01/18 06:09 Dose: 100 mg Valsartan (Diovan -) 80 mg PO DAILY [facility] Last Admin: 03/01/18 10:52 Dose: 80 mg - Objective Vital Signs: Vital Signs Temperature 97.7 F 03/01/18 14:53 Pulse Rate 89 03/01/18 14:53 Respiratory Rate 20 03/01/18 14:53 Blood Pressure 129/62 03/01/18 14:53 O2 Sat by Pulse Oximetry (%) 95 03/01/18 08:00 Constitutional: Yes: Calm Eyes: Yes: Conjunctiva Clear HENT: Yes: Atraumatic Neck: Yes: Supple Cardiovascular: Yes: S1, S2 Respiratory: Yes: CTA Bilaterally Gastrointestinal: Yes: Normal Bowel Sounds, Soft Genitourinary: Yes: WNL Edema: Yes Edema: LLE: Trace, RLE: Trace Neurological: Yes: Oriented Psychiatric: Yes: Oriented Labs: CBC, BMP 03/01/18 08:00 03/01/18 08:00 INR, PTT INR 0.98 (0.83-1.09) 02/28/18 08:45 Assessment/Plan Current Medications Generic Name Dose Route Start Last Admin Trade Name Freq PRN Reason Stop Dose Admin Albuterol Sulfate 1 amp 02/26/18 19:23 Ventolin 0.083% Nebulizer Soln - NEB Q6H PRN SHORT OF BREATH/WHEEZING Amlodipine Besylate 5 mg 02/27/18 10:00 03/01/18 10:52 Norvasc - PO 5 mg DAILY [facility] Administration Bisacodyl 20 mg 03/02/18 14:00 Dulcolax - PO 03/02/18 14:01 ONCE ONE Ferrous Sulfate 325 mg 03/01/18 15:45 03/01/18 16:03 Feosol - PO 325 mg DAILY [facility] Administration Furosemide 40 mg 03/02/18 06:00 Lasix - PO BID@0600,1400 [facility] Insulin Aspart 1 vial 02/28/18 16:30 03/01/18 15:45 Novolog Vial Sliding Scale - SQ Not Given [facility] Protocol Insulin Detemir 10 units 02/27/18 22:00 02/28/18 06:26 Levemir Vial SQ Not Given BID@0700,2200 [facility] Metformin HCl 750 mg 02/27/18 07:00 03/01/18 06:09 Glucophage Xr - PO 750 mg DAILY@0700 [facility] Administration Polyethylene Glycol 17 gm 03/01/18 22:00 Miralax (For Daily Use) - PO TID [facility] Sitagliptin Phosphate 100 mg 02/28/18 07:00 03/01/18 06:09 Januvia - PO 100 mg DAILY@0700 [facility] Administration Valsartan 80 mg 02/27/18 10:00 03/01/18 10:52 Diovan - PO 80 mg DAILY [facility] Administration Laboratory Tests 02/28/18 02/28/18 08:45 16:43 REKHA M-Donovan Pending IDRIS Screen Pending Impression 1. azotemia 2. anemia 3. proteinuria 4. pleural effusions 5. htn 6. dm 7. cellulitis Plan - change lasix to PO - monitor renal function as director of sports medicine is rising - cont to monitor renal function - hg is improving - will need outpt ckd workup - follow spep - monitor hg Dr Story
[2018-03-01] MEDS: POLYETHYLENE GLYCOL 3350 119 GM BTL PO SCH (22:03)
[2018-03-02] MEDS ORDERED: PT OWN MED DRAWER 7, Y5N ONE (05:29)
[2018-03-02] MEDS: FUROSEMIDE 40 MG TABLET (FP) PO SCH ×2 (06:12→13:36)
[2018-03-02] MEDS: POLYETHYLENE GLYCOL 3350 119 GM BTL PO SCH ×3 (06:12→21:40)
[2018-03-02] MEDS: sitaGLIPtin PHOSPHATE 100 MG TABLET (FP) PO SCH (06:12)
[2018-03-02] MEDS: INSULIN SLIDING SCALE (NOVOLOG) 1 VIAL SQ SCH ×4 (06:13→21:42)
[2018-03-02 07:30] LABS: BASO % 1.2 % (0-2.0); EOS % 6.8 % (0-4.5); HEMATOCRIT 31.5 % (32.4-45.2); HEMOGLOBIN 10.2 GM/dL (10.7-15.3); LYMPH % 13.4 % (8-40); MCH 26.1 pg (25.7-33.7); MCHC 32.3 g/dl (32.0-36.0); MEAN CELL VOLUME 80.6 fl (80-96); MEAN PLT VOLUME 6.8 fl (7.5-11.1); MONO % 8.8 % (3.8-10.2); NEUT % 69.8 % (42.8-82.8); PLATELET COUNT 279 K/MM3 (134-434); RBC 3.91 M/mm3 (3.60-5.2); RDW 14.9 % (11.6-15.6); RETICULOCYTES 2.38 % (0.5-1.5); WHITE BLOOD COUNT 10.3 K/mm3 (4.0-10.0)
[2018-03-02 07:42] LABS: PROTHROMBIN TIME (PATIENT) 11.8 SEC (9.7-13.0)
[2018-03-02 08:24] LABS: ANION GAP 9 MMOL/L (8-16); BLOOD UREA NITROGEN 38 mg/dL (7-18); CALCIUM 8.3 mg/dL (8.5-10.1); CHLORIDE 100 mmol/L (98-107); CO2 25 mmol/L (21-32); GLUCOSE,RANDOM 126 mg/dL (74-106); POTASSIUM 4.4 mmol/L (3.5-5.1); SODIUM 134 mmol/L (136-145)
[2018-03-02] MEDS: amLODIPine BESYLATE 5 MG TABLET (FP) PO SCH (09:12)
[2018-03-02] MEDS: VALSARTAN 80 MG TABLET (UD) PO SCH (09:12)
[2018-03-02] MEDS: FERROUS SO4 325 MG TABLET (FP) PO SCH (09:12)
--- NOTE | 2018-03-02 09:25 | PN ---
Progress Note, Physician Chief Complaint: ACUTE ON CHRONIC CHF History of Present Illness: NAD furosemide 40 mg IVP BID, change to PO Cardiology consult Echo done this admission, LVEF 45%, mild global hypokinesis H/H stable - Current Medication List Current Medications: Active Medications Albuterol Sulfate (Ventolin 0.083% Nebulizer Soln -) 1 amp NEB Q6H PRN PRN Reason: SHORT OF BREATH/WHEEZING Amlodipine Besylate (Norvasc -) 5 mg PO DAILY [facility] Last Admin: 03/02/18 09:12 Dose: 5 mg Bisacodyl (Dulcolax -) 20 mg PO ONCE ONE Stop: 03/02/18 14:01 Ferrous Sulfate (Feosol -) 325 mg PO DAILY [facility] Last Admin: 03/02/18 09:12 Dose: 325 mg Furosemide (Lasix -) 40 mg PO BID@0600,1400 [facility] Last Admin: 03/02/18 06:12 Dose: 40 mg Insulin Aspart (Novolog Vial Sliding Scale -) 1 vial SQ ACHS [facility]; Protocol Last Admin: 03/02/18 06:13 Dose: Not Given Insulin Detemir (Levemir Vial) 10 units SQ BID@0700,2200 [facility] Last Admin: 02/28/18 06:26 Dose: Not Given Metformin HCl (Glucophage Xr -) 750 mg PO DAILY@0700 [facility] Last Admin: 03/02/18 06:12 Dose: 750 mg Polyethylene Glycol (Miralax (For Daily Use) -) 17 gm PO TID [facility] Last Admin: 03/02/18 06:12 Dose: 17 gm Sitagliptin Phosphate (Januvia -) 100 mg PO DAILY@0700 [facility] Last Admin: 03/02/18 06:12 Dose: 100 mg Valsartan (Diovan -) 80 mg PO DAILY [facility] Last Admin: 03/02/18 09:12 Dose: 80 mg - Objective Vital Signs: Vital Signs Temperature 98.2 F 03/02/18 05:00 Pulse Rate 78 03/02/18 05:00 Respiratory Rate 20 03/01/18 18:00 Blood Pressure 148/83 03/02/18 05:00 O2 Sat by Pulse Oximetry (%) 95 03/01/18 22:00 Constitutional: Yes: Well Nourished, No Distress, Calm Cardiovascular: Yes: Regular Rate and Rhythm Respiratory: Yes: Regular Gastrointestinal: Yes: WNL Genitourinary: Yes: WNL Musculoskeletal: Yes: WNL Extremities: Yes: WNL Edema: Yes Edema: LLE: Trace, RLE: Trace Peripheral Pulses WNL: Yes Neurological: Yes: Alert, Oriented Psychiatric: Yes: Alert, Oriented Labs: CBC, BMP 03/02/18 06:30 03/02/18 06:30 INR, PTT INR 1.00 (0.83-1.09) 03/02/18 06:30 Problem List - Problems (1) Acute on chronic congestive heart failure Assessment/Plan: -Furosemide 40 mg PO BID -Cardiology consult -daily weights -low sodium diet -RD consult Code(s): I50.9 - HEART FAILURE, UNSPECIFIED (2) Diabetes Assessment/Plan: -BGM AC HS -Diabetic diet -A1c 7.7 -outpatient non compliance? -On levemir 12 U PM and 15 U AM at home, decrease to 10 U BID -Add Januvia 100 mg po daily in am, in addition to metformin 750 mg XR to avoid any hypoglycemic events, given that her kidney fxn is essentially normal. -Novolog sliding scale -RD consult Code(s): E11.9 - TYPE 2 DIABETES MELLITUS WITHOUT COMPLICATIONS Qualifiers: Diabetes mellitus type: type 2 Diabetes mellitus care home insulin use: with care home use Diabetes mellitus complication status: with unspecified complications Qualified Code(s): E11.8 - Type 2 diabetes mellitus with unspecified complications; Z79.4 - termite helper (current) use of insulin (3) HTN (hypertension) Assessment/Plan: -Continue amlodipine 5 mg po daily -Cardiology consult -Low sodium diet Code(s): I10 - ESSENTIAL (PRIMARY) HYPERTENSION (4) UTI (urinary tract infection) Assessment/Plan: -UC: Microbiology 02/27/18 19:12 Rectal Swab VRE Culture - Final NO VREF ISOLATED 02/26/18 12:45 Urine - Urine Clean Catch Urine Culture - Final Enterococcus Faecalis -Has had E coli in urine in the past -Pt asymptomatic, afebrile, no leukocytosis -Would not treat unless indicated Code(s): N39.0 - URINARY TRACT INFECTION, SITE NOT SPECIFIED (5) Anemia Assessment/Plan: -Stool OB negative -Iron studies show ISAEL -thyroid panel, folate essentially normal -B12 unremarkable -Hematology consult -monitor trend, avoid transfusions unless Hg below 7.0 to avoid fluid overload -Seen by GI -EGD and colonoscopy saturday, cleared by cardiology Code(s): D64.9 - ANEMIA, UNSPECIFIED Qualifiers: Anemia type: iron deficiency Assessment/Plan see problem list Hold heparin until anemia work up is completely evaluated Physical therapy Patient is medically stable for EGD and Colonoscopy with acceptable OR risks
[2018-03-02] MEDS ORDERED: INSULIN (NOVOLOG) ASPART 100 UNITS/ML 10ML VIAL ONE (10:46)
--- NOTE | 2018-03-02 12:33 | PN ---
GI Progress Note Subjective: GI NOte: No overt bleeding. Had a brown BM today. Has developed a dull RLQ ache. Has been cleared by cardiology and pulmonary for both endoscopies tomorrow. - Objective Vital Signs: Vital Signs Temperature 98.0 F 03/02/18 08:00 Pulse Rate 75 03/02/18 08:00 Respiratory Rate 20 03/02/18 08:00 Blood Pressure 153/85 03/02/18 08:00 O2 Sat by Pulse Oximetry (%) 95 03/02/18 08:00 Laboratory Tests 02/27/18 03/01/18 03/02/18 06:30 08:00 06:30 WBC 10.3 H Hgb 6.6 L* 10.5 L 10.2 L BUN Creatinine Ferritin 03/02/18 06:30 WBC Hgb BUN 38 H Creatinine 1.0 Ferritin 145.2 Constitutional: Calm ...Auscultate: Yes: Normoactive Bowel Sounds ...Palpate: Yes: Soft, Other (nontender) Labs: CBC, BMP 03/02/18 06:30 03/02/18 06:30 INR, PTT INR 1.00 (0.83-1.09) 03/02/18 06:30 Assessment/Plan Prep for EGD and colonoscopy tomorrow unless pain worsens Problem List - Problems (1) Abdominal pain Assessment/Plan: Suspect that this pain is due to colonstipation and should improve with the bowel prep. If it worsens I will stop the prep and instead pursue a CT scan Code(s): R10.9 - UNSPECIFIED ABDOMINAL PAIN (2) Anemia Code(s): D64.9 - ANEMIA, UNSPECIFIED Qualifiers: Anemia type: iron deficiency (3) History of colon polyps Code(s): Z86.010 - PERSONAL HISTORY OF COLONIC POLYPS (4) Diabetes Code(s): E11.9 - TYPE 2 DIABETES MELLITUS WITHOUT COMPLICATIONS Qualifiers: Diabetes mellitus type: type 2 Diabetes mellitus tank terminal gauger insulin use: with penitentiary use Diabetes mellitus complication status: with unspecified complications Qualified Code(s): E11.8 - Type 2 diabetes mellitus with unspecified complications; Z79.4 - detention (current) use of insulin (5) HTN (hypertension) Code(s): I10 - ESSENTIAL (PRIMARY) HYPERTENSION (6) CHF (congestive heart failure) Code(s): I50.9 - HEART FAILURE, UNSPECIFIED
--- NOTE | 2018-03-02 13:03 | PN ---
Progress Note (short form) - Note Progress Note: PULMONARY APPEARS COMFORTABLE IN BED LESS SOB POST TRANSFUSION VSS Constitutional: Yes: No Distress Eyes: Yes: Conjunctiva Clear, EOM Intact HENT: Yes: Atraumatic, Normocephalic Neck: Yes: Supple, Trachea Midline Cardiovascular: Yes: Regular Rate and Rhythm Respiratory: Yes: Diminished, Rhonchi. No: Accessory Muscle Use, Rales, SOB, SOB on Exertion, Stridor, Tachypnea, Wheezes ...Inspection: Yes: WNL ...Clubbing: No Gastrointestinal: Yes: Normal Bowel Sounds, Soft Renal/: Yes: WNL Musculoskeletal: Yes: WNL Extremities: Yes: WNL Edema: Yes Peripheral Pulses WNL: Yes Integumentary: Yes: WNL Neurological: Yes: Alert, Oriented ...Motor Strength: WNL Psychiatric: Yes: WNL, Alert, Oriented HGB 10.4 GMS POST TWO UNITS HYPOCHROMIC/MICROCYTIC INDICIES WITH LOW FERRITIN Chest X-ray: Report Reviewed, Image Reviewed Problem List - Problems (1) Anemia Code(s): D64.9 - ANEMIA, UNSPECIFIED (2) CHF (congestive heart failure) Code(s): I50.9 - HEART FAILURE, UNSPECIFIED (3) Diabetes Code(s): E11.9 - TYPE 2 DIABETES MELLITUS WITHOUT COMPLICATIONS Qualifiers: Diabetes mellitus type: type 2 Diabetes mellitus senior living insulin use: with local intermodal truck driver use Diabetes mellitus complication status: with unspecified complications Qualified Code(s): E11.8 - Type 2 diabetes mellitus with unspecified complications; Z79.4 - [facility] (current) use of insulin (4) HTN (hypertension) Code(s): I10 - ESSENTIAL (PRIMARY) HYPERTENSION (5) Lower extremity edema Code(s): R60.0 - LOCALIZED EDEMA (6) Pedal edema Code(s): R60.0 - LOCALIZED EDEMA Assessment/Plan SOB due to bilateral pleural effusions with atelectasis and anemia O2 as needed diuretics/cardio note reviewed cleared for inpatient endoscopic procedures as planned from a Pulmonary standpoint Serina HENLEY MD
[2018-03-02] MEDS ORDERED: BISACODYL 5 MG TABLET.DR (FP) PO ONE (14:00)
[2018-03-02] MEDS ORDERED: PEG3350/SOD SULF,BICARB,CL/KCL 4,000 ML SOLN.RECON PO ONE ×2 (15:00)
--- NOTE | 2018-03-02 15:07 | PN ---
Progress Note, Physician History of Present Illness: Pt seen and examined at bedside. She is awake and alert. She feels that the edema is improved. - Current Medication List Current Medications: Active Medications Albuterol Sulfate (Ventolin 0.083% Nebulizer Soln -) 1 amp NEB Q6H PRN PRN Reason: SHORT OF BREATH/WHEEZING Amlodipine Besylate (Norvasc -) 5 mg PO DAILY [facility] Last Admin: 03/02/18 09:12 Dose: 5 mg Ferrous Sulfate (Feosol -) 325 mg PO DAILY [facility] Last Admin: 03/02/18 09:12 Dose: 325 mg Furosemide (Lasix -) 40 mg PO BID@0600,1400 [facility] Last Admin: 03/02/18 13:36 Dose: 40 mg Insulin Aspart (Novolog Vial Sliding Scale -) 1 vial SQ ACHS [facility]; Protocol Last Admin: 03/02/18 10:51 Dose: Not Given Insulin Detemir (Levemir Vial) 10 units SQ BID@0700,2200 [facility] Last Admin: 02/28/18 06:26 Dose: Not Given Metformin HCl (Glucophage Xr -) 750 mg PO DAILY@0700 [facility] Last Admin: 03/02/18 06:12 Dose: 750 mg Polyethylene Glycol (Miralax (For Daily Use) -) 17 gm PO TID [facility] Last Admin: 03/02/18 13:36 Dose: 17 gm Sitagliptin Phosphate (Januvia -) 100 mg PO DAILY@0700 [facility] Last Admin: 03/02/18 06:12 Dose: 100 mg Valsartan (Diovan -) 80 mg PO DAILY [facility] Last Admin: 03/02/18 09:12 Dose: 80 mg - Objective Vital Signs: Vital Signs Temperature 97.9 F 03/02/18 14:45 Pulse Rate 73 03/02/18 14:45 Respiratory Rate 20 03/02/18 14:45 Blood Pressure 146/73 03/02/18 14:45 O2 Sat by Pulse Oximetry (%) 95 03/02/18 08:00 Constitutional: Yes: Calm Eyes: Yes: Conjunctiva Clear HENT: Yes: Atraumatic Neck: Yes: Supple Cardiovascular: Yes: S1, S2 Respiratory: Yes: CTA Bilaterally Gastrointestinal: Yes: Soft Musculoskeletal: Yes: WNL Edema: LLE: Trace, RLE: Trace Neurological: Yes: Oriented Psychiatric: Yes: Oriented Labs: CBC, BMP 03/02/18 06:30 03/02/18 06:30 INR, PTT INR 1.00 (0.83-1.09) 03/02/18 06:30 Assessment/Plan Current Medications Generic Name Dose Route Start Last Admin Trade Name Freq PRN Reason Stop Dose Admin Albuterol Sulfate 1 amp 02/26/18 19:23 Ventolin 0.083% Nebulizer Soln - NEB Q6H PRN SHORT OF BREATH/WHEEZING Amlodipine Besylate 5 mg 02/27/18 10:00 03/02/18 09:12 Norvasc - PO 5 mg DAILY [facility] Administration Ferrous Sulfate 325 mg 03/01/18 15:45 03/02/18 09:12 Feosol - PO 325 mg DAILY [facility] Administration Furosemide 40 mg 03/02/18 06:00 03/02/18 13:36 Lasix - PO 40 mg BID@0600,1400 [facility] Administration Insulin Aspart 1 vial 02/28/18 16:30 03/02/18 10:51 Novolog Vial Sliding Scale - SQ Not Given [facility] Protocol Insulin Detemir 10 units 02/27/18 22:00 02/28/18 06:26 Levemir Vial SQ Not Given BID@0700,2200 [facility] Metformin HCl 750 mg 02/27/18 07:00 03/02/18 06:12 Glucophage Xr - PO 750 mg DAILY@0700 [facility] Administration Polyethylene Glycol 17 gm 03/01/18 22:00 03/02/18 13:36 Miralax (For Daily Use) - PO 17 gm TID [facility] Administration Sitagliptin Phosphate 100 mg 02/28/18 07:00 03/02/18 06:12 Januvia - PO 100 mg DAILY@0700 [facility] Administration Valsartan 80 mg 02/27/18 10:00 03/02/18 09:12 Diovan - PO 80 mg DAILY [facility] Administration Impression 1. azotemia 2. anemia 3. proteinuria 4. pleural effusions 5. htn 6. dm 7. cellulitis Plan - PO lasix - repeat ua - will need outpt proteinuria workup - follow spep results - monitor hg - cont valsartan Dr Story
[2018-03-02 21:19] LABS: URINE APPEARANCE CLEAR; URINE BILIRUBIN NEGATIVE (<2.0 mg/dL); URINE COLOR COLORLESS; URINE GLUCOSE (UA) NEGATIVE (NEGATIVE); URINE KETONE NEGATIVE (NEGATIVE); URINE LEUK ESTERASE NEGATIVE (NEGATIVE); URINE NITRITE NEGATIVE (NEGATIVE); URINE PROTEIN 1+ (NEGATIVE); URINE UROBILINOGEN NEGATIVE mg/dL (0.2-1.0)
[2018-03-02 21:27] LABS: EPI CELLS RARE /HPF (FEW)
[2018-03-03] MEDS: POLYETHYLENE GLYCOL 3350 119 GM BTL PO SCH ×3 (05:57→23:25)
[2018-03-03] MEDS: FUROSEMIDE 40 MG TABLET (FP) PO SCH ×2 (05:59→13:09)
[2018-03-03] MEDS: INSULIN SLIDING SCALE (NOVOLOG) 1 VIAL SQ SCH ×4 (06:51→22:12)
[2018-03-03] MEDS: sitaGLIPtin PHOSPHATE 100 MG TABLET (FP) PO SCH (06:51)
[2018-03-03 09:38] LABS: BASO % 1.3 % (0-2.0); EOS % 7.8 % (0-4.5); HEMATOCRIT 31.8 % (32.4-45.2); HEMOGLOBIN 10.3 GM/dL (10.7-15.3); LYMPH % 13.5 % (8-40); MCHC 32.3 g/dl (32.0-36.0); MEAN CELL VOLUME 80.3 fl (80-96); MEAN PLT VOLUME 6.8 fl (7.5-11.1); MONO % 7.9 % (3.8-10.2); NEUT % 69.5 % (42.8-82.8); PLATELET COUNT 279 K/MM3 (134-434); RBC 3.96 M/mm3 (3.60-5.2); RDW 14.8 % (11.6-15.6); RETICULOCYTES 2.35 % (0.5-1.5)
[2018-03-03 09:49] LABS: INR 1.01 (0.83-1.09); PROTHROMBIN TIME (PATIENT) 11.9 SEC (9.7-13.0)
[2018-03-03] MEDS: VALSARTAN 80 MG TABLET (UD) PO SCH (10:09)
[2018-03-03 10:10] LABS: ANION GAP 8 MMOL/L (8-16); BLOOD UREA NITROGEN 32 mg/dL (7-18); CALCIUM 8.2 mg/dL (8.5-10.1); CHLORIDE 99 mmol/L (98-107); CO2 28 mmol/L (21-32); GLUCOSE,RANDOM 160 mg/dL (74-106); POTASSIUM 3.8 mmol/L (3.5-5.1); SODIUM 135 mmol/L (136-145)
[2018-03-03] MEDS: amLODIPine BESYLATE 5 MG TABLET (FP) PO SCH (10:11)
[2018-03-03] MEDS: FERROUS SO4 325 MG TABLET (FP) PO SCH (10:11)
--- NOTE | 2018-03-03 11:16 | PN ---
Progress Note, Physician Chief Complaint: patient seen and examined to go for EGD and colonoscopy today - Current Medication List Current Medications: Active Medications Albuterol Sulfate (Ventolin 0.083% Nebulizer Soln -) 1 amp NEB Q6H PRN PRN Reason: SHORT OF BREATH/WHEEZING Amlodipine Besylate (Norvasc -) 5 mg PO DAILY [facility] Last Admin: 03/03/18 10:11 Dose: 5 mg Ferrous Sulfate (Feosol -) 325 mg PO DAILY [facility] Last Admin: 03/03/18 10:11 Dose: Not Given Furosemide (Lasix -) 40 mg PO BID@0600,1400 [facility] Last Admin: 03/03/18 05:59 Dose: 40 mg Insulin Aspart (Novolog Vial Sliding Scale -) 1 vial SQ ACHS [facility]; Protocol Last Admin: 03/03/18 06:51 Dose: Not Given Insulin Detemir (Levemir Vial) 10 units SQ BID@0700,2200 [facility] Last Admin: 02/28/18 06:26 Dose: Not Given Metformin HCl (Glucophage Xr -) 750 mg PO DAILY@0700 [facility] Last Admin: 03/03/18 06:50 Dose: Not Given Polyethylene Glycol (Miralax (For Daily Use) -) 17 gm PO TID [facility] Last Admin: 03/03/18 05:57 Dose: Not Given Sitagliptin Phosphate (Januvia -) 100 mg PO DAILY@0700 [facility] Last Admin: 03/03/18 06:51 Dose: Not Given Valsartan (Diovan -) 80 mg PO DAILY [facility] Last Admin: 03/03/18 10:09 Dose: 80 mg - Objective Vital Signs: Vital Signs Temperature 97.6 F 03/03/18 05:57 Pulse Rate 81 03/03/18 05:57 Respiratory Rate 20 03/03/18 05:57 Blood Pressure 144/76 03/03/18 05:57 O2 Sat by Pulse Oximetry (%) 96 03/02/18 21:00 Constitutional: Yes: Calm Cardiovascular: Yes: Regular Rate and Rhythm, S1, S2 Respiratory: Yes: CTA Bilaterally Gastrointestinal: Yes: Normal Bowel Sounds, Soft Edema: No Neurological: Yes: Alert, Oriented Labs: CBC, BMP 03/03/18 09:28 03/03/18 09:28 INR, PTT INR 1.01 (0.83-1.09) 03/03/18 09:28 Problem List - Problems (1) Acute on chronic congestive heart failure Assessment/Plan: echo noted with ejection fraction 45% hypokinesis of the inferolateral wall iv lasix bid now to change to po lasix bid repeat cxr- bilateral pleural effusion Code(s): I50.9 - HEART FAILURE, UNSPECIFIED (2) Anemia Assessment/Plan: s/p 2 units prbc appropriate increase in h/h iron panel noted iron def anemia will give venofer to get egd and colonscopy today Code(s): D64.9 - ANEMIA, UNSPECIFIED Qualifiers: Anemia type: iron deficiency (3) Diabetes Assessment/Plan: hgba1c noted 7.7 levemir bid bgm noted will hold levemir for now on oral hypoglycemic Code(s): E11.9 - TYPE 2 DIABETES MELLITUS WITHOUT COMPLICATIONS Qualifiers: Diabetes mellitus type: type 2 Diabetes mellitus fci insulin use: with fci use Diabetes mellitus complication status: with unspecified complications Qualified Code(s): E11.8 - Type 2 diabetes mellitus with unspecified complications; Z79.4 - secretary specialist (current) use of insulin (4) Azotemia Code(s): R79.89 - OTHER SPECIFIED ABNORMAL FINDINGS OF BLOOD CHEMISTRY
[2018-03-03] MEDS ORDERED: ETOMIDATE 20 MG/10 ML AMPUL IVPUSH ONE (12:59)
[2018-03-03] MEDS ORDERED: TETRACAINE/BENZOCAINE/BUTAMBEN 20 GM SPR TP ONE (13:25)
[2018-03-03] MEDS ORDERED: EPINEPHrine 1:10,000 (P-F SYR) 1 MG/10 ML DISP.SYRIN IVPUSH ONE (13:48)
[2018-03-03] MEDS ORDERED: EPINEPHrine 1:10,000 (P-F SYR) 1 MG/10 ML DISP.SYRIN ONE (14:39)
--- NOTE | 2018-03-03 15:27 | PN ---
Progress Note (short form) - Note Progress Note: Brief GI follow up note EGD and colonoscopy performed today. EGD revealing 10mm linear gastric body ulcer with intermittent oozing during the procedure s/p epinephrine injection and endoclip placement, no bleeding seen at end of procedure. Small gastric submucosal lesion seen in gastric fundus and diminutive gastric polyps (likely fundic gland), biopsies taken. Colonoscopy revealing suboptimal prep, normal appearing terminal ileum, 15-20mm cecal polyp, not removed on this exam due to prep and polyp position, multiple biopsies taken. 3-4mm sigmoid colon polyp. Large amount of liquid and semiliquid stool was seen, other large lesions not seen however smaller or flat lesions could have been missed. Recommendations: -Follow up pathology results -IV PPI BID -Avoid NSAIDs -Repeat CBC at 6pm -If Hb remains stable could start clear liquid diet -If decline in Hb or overt GI bleed, would consider repeat EGD pending clinical course. -Pending pathology results, pt would require repeat colonoscopy/polypectomy with extended prep (note pt also ate clear liquid this am further limiting visualization on exam today) -See endoscopy reports for full details -Attempted to call primary team to notify of above, await call back.
[2018-03-03 17:54] LABS: HEMATOCRIT 34.4 % (32.4-45.2); MCH 25.9 pg (25.7-33.7); MCHC 31.8 g/dl (32.0-36.0); MEAN CELL VOLUME 81.3 fl (80-96); MEAN PLT VOLUME 6.9 fl (7.5-11.1); PLATELET COUNT 301 K/MM3 (134-434); RBC 4.23 M/mm3 (3.60-5.2); RDW 15.1 % (11.6-15.6); WHITE BLOOD COUNT 10.9 K/mm3 (4.0-10.0)
[2018-03-03] MEDS: PANTOPRAZOLE SODIUM 40 MG VIAL IVPUSH SCH (22:10)
[2018-03-03] MEDS: INSULIN (LEVEMIR) 100 UNITS/ML UNITS SQ SCH (22:12)
[2018-03-04] MEDS ORDERED: PT OWN MED DRAWER 7, Y5N ONE (05:40)
[2018-03-04] MEDS: POLYETHYLENE GLYCOL 3350 119 GM BTL PO SCH ×3 (06:03→22:15)
[2018-03-04] MEDS: FUROSEMIDE 40 MG TABLET (FP) PO SCH ×2 (06:04→14:01)
[2018-03-04] MEDS: INSULIN SLIDING SCALE (NOVOLOG) 1 VIAL SQ SCH ×4 (06:04→22:15)
[2018-03-04] MEDS: INSULIN (LEVEMIR) 100 UNITS/ML UNITS SQ SCH ×2 (06:54→22:16)
[2018-03-04] MEDS: sitaGLIPtin PHOSPHATE 100 MG TABLET (FP) PO SCH (06:54)
--- NOTE | 2018-03-04 09:21 | PN ---
Progress Note, Physician Chief Complaint: ACUTE ON CHRONIC CHF History of Present Illness: NAD On PO furosemide On IV protonix 40 mg bid Cardiology consult Echo done this admission, LVEF 45%, mild global hypokinesis H/H stable Had EGD and Colonoscopy done yesterday tolerating clear liquids - Current Medication List Current Medications: Active Medications Albuterol Sulfate (Ventolin 0.083% Nebulizer Soln -) 1 amp NEB Q6H PRN PRN Reason: SHORT OF BREATH/WHEEZING Amlodipine Besylate (Norvasc -) 5 mg PO DAILY [facility] Last Admin: 03/03/18 10:11 Dose: 5 mg Ferrous Sulfate (Feosol -) 325 mg PO DAILY [facility] Last Admin: 03/03/18 10:11 Dose: Not Given Furosemide (Lasix -) 40 mg PO BID@0600,1400 [facility] Last Admin: 03/04/18 06:04 Dose: 40 mg Insulin Aspart (Novolog Vial Sliding Scale -) 1 vial SQ [facility]; Protocol Last Admin: 03/04/18 06:04 Dose: Not Given Insulin Detemir (Levemir Vial) 10 units SQ BID@0700,2200 [facility] Last Admin: 03/04/18 06:54 Dose: Not Given Metformin HCl (Glucophage Xr -) 750 mg PO DAILY@0700 [facility] Last Admin: 03/04/18 06:54 Dose: Not Given Pantoprazole Sodium (Protonix Iv) 40 mg IVPUSH BID [facility] Last Admin: 03/03/18 22:10 Dose: 40 mg Polyethylene Glycol (Miralax (For Daily Use) -) 17 gm PO TID [facility] Last Admin: 03/04/18 06:03 Dose: 17 gm Sitagliptin Phosphate (Januvia -) 100 mg PO DAILY@0700 [facility] Last Admin: 03/04/18 06:54 Dose: Not Given Valsartan (Diovan -) 80 mg PO DAILY [facility] Last Admin: 03/03/18 10:09 Dose: 80 mg - Objective Vital Signs: Vital Signs Temperature 97.7 F 03/04/18 06:43 Pulse Rate 71 03/04/18 06:43 Respiratory Rate 18 03/04/18 06:43 Blood Pressure 132/71 03/04/18 06:43 O2 Sat by Pulse Oximetry (%) 96 03/03/18 21:00 Constitutional: Yes: Well Nourished, No Distress, Calm Cardiovascular: Yes: Regular Rate and Rhythm Respiratory: Yes: Regular Gastrointestinal: Yes: Normal Bowel Sounds, Soft, Tenderness (RLQ) Musculoskeletal: Yes: WNL Extremities: Yes: WNL Edema: Yes Edema: LLE: Trace, RLE: Trace Peripheral Pulses WNL: Yes Neurological: Yes: Alert, Oriented Psychiatric: Yes: Alert, Oriented Labs: CBC, BMP 03/03/18 18:00 03/03/18 09:28 INR, PTT INR 1.01 (0.83-1.09) 03/03/18 09:28 Problem List - Problems (1) Acute on chronic congestive heart failure Assessment/Plan: -Furosemide 40 mg PO BID -Cardiology consult -daily weights -low sodium diet -RD consult -echo with LVEF 45% Code(s): I50.9 - HEART FAILURE, UNSPECIFIED (2) Diabetes Assessment/Plan: -BGM AC HS -Diabetic diet -A1c 7.7 -outpatient non compliance? -On levemir 10 U BID -Added Januvia 100 mg po daily in am, in addition to metformin 750 mg XR to avoid any hypoglycemic events, given that her kidney fxn is essentially normal- would continue same regimen outpatient -Novolog sliding scale -RD consult Code(s): E11.9 - TYPE 2 DIABETES MELLITUS WITHOUT COMPLICATIONS Qualifiers: Diabetes mellitus type: type 2 Diabetes mellitus air table operator insulin use: with half-way use Diabetes mellitus complication status: with unspecified complications Qualified Code(s): E11.8 - Type 2 diabetes mellitus with unspecified complications; Z79.4 - credit administration specialist (current) use of insulin (3) HTN (hypertension) Assessment/Plan: -Continue amlodipine 5 mg po daily -Cardiology consult -Low sodium diet Code(s): I10 - ESSENTIAL (PRIMARY) HYPERTENSION (4) UTI (urinary tract infection) Assessment/Plan: -UC: Microbiology 02/27/18 19:12 Rectal Swab VRE Culture - Final NO VREF ISOLATED 02/26/18 12:45 Urine - Urine Clean Catch Urine Culture - Final Enterococcus Faecalis -Has had E coli in urine in the past -Pt asymptomatic, afebrile, no leukocytosis -Would not treat unless indicated Code(s): N39.0 - URINARY TRACT INFECTION, SITE NOT SPECIFIED (5) Anemia Assessment/Plan: -H/H stable -Stool OB negative -Iron studies show ISAEL -thyroid panel, folate essentially normal -B12 unremarkable -Hematology consult -monitor trend, avoid transfusions unless Hg below 7.0 to avoid fluid overload -Seen by GI -EGD and colonoscopy: EGD revealing 10mm linear gastric body ulcer with intermittent oozing during the procedure s/p epinephrine injection and endoclip placement, no bleeding seen at end of procedure. Small gastric submucosal lesion seen in gastric fundus and diminutive gastric polyps (likely fundic gland), biopsies taken. Colonoscopy revealing suboptimal prep, normal appearing terminal ileum, 15-20mm cecal polyp, not removed on this exam due to prep and polyp position, multiple biopsies taken. 3-4mm sigmoid colon polyp. Large amount of liquid and semiliquid stool was seen, other large lesions not seen however smaller or flat lesions could have been missed. Code(s): D64.9 - ANEMIA, UNSPECIFIED Qualifiers: Anemia type: iron deficiency (6) Right lower quadrant abdominal pain Assessment/Plan: -S/P colonoscopy -CT abd/pelvis with oral contrast -seen by GI Code(s): R10.31 - RIGHT LOWER QUADRANT PAIN Assessment/Plan see problem list Physical therapy
[2018-03-04] MEDS: PANTOPRAZOLE SODIUM 40 MG VIAL IVPUSH SCH ×2 (09:36→22:15)
[2018-03-04] MEDS: amLODIPine BESYLATE 5 MG TABLET (FP) PO SCH (09:36)
[2018-03-04] MEDS: VALSARTAN 80 MG TABLET (UD) PO SCH (09:36)
[2018-03-04] MEDS: FERROUS SO4 325 MG TABLET (FP) PO SCH (09:36)
--- NOTE | 2018-03-04 11:00 | PN ---
GI Progress Note Subjective: Complains of RLQ pain. states that she has pain previously but worse since yesterday EGD/Colonoscopy findings reviewed - Objective Vital Signs: Vital Signs Temperature 97.7 F 03/04/18 06:43 Pulse Rate 71 03/04/18 06:43 Respiratory Rate 18 03/04/18 06:43 Blood Pressure 132/71 03/04/18 06:43 O2 Sat by Pulse Oximetry (%) 96 03/03/18 21:00 Constitutional: Calm Eyes: No: Sclera Icterus Cardiovascular: Yes: Regular Rate and Rhythm Respiratory: Yes: CTA Bilaterally Gastrointestinal Inspection: No: Distention ...Auscultate: Yes: Normoactive Bowel Sounds ...Palpate: Yes: Tenderness (Tenderness to light/deep palpation in the RLQ) ...Percussion: No: Tympanitic Labs: CBC, BMP 03/03/18 18:00 03/03/18 09:28 INR, PTT INR 1.01 (0.83-1.09) 03/03/18 09:28 Problem List - Problems (1) Abdominal pain Assessment/Plan: Worsened right lower abdominal pain with leukocytosis npoted last night Hemodynamically stable without fevers overnight Advised: NPO except meds IV hydration CT scan of the abdomen and pelvis with PO contrast Repeat CBC Discussed with Jesus Brown NP Code(s): R10.9 - UNSPECIFIED ABDOMINAL PAIN (2) Anemia Assessment/Plan: H/H stable, no overt bleeding EGD revealed linear ulceration in the body of the stomach s/p endoclip and epinephrine injection. No overt bleeding Monitor for now On PPI:Can change to PO BID for 3 days then 40mg PO daily Code(s): D64.9 - ANEMIA, UNSPECIFIED Qualifiers: Anemia type: iron deficiency (3) Colon polyp Assessment/Plan: Will need repeat colonoscopy with extended bowel prep with polypectomy of large cecal polyp noted on 03/03 colonosocpy pending results of biopsy path . Ms. Reed is aware. Code(s): K63.5 - POLYP OF COLON
[2018-03-04 11:36] LABS: BASO % 1.4 % (0-2.0); EOS % 5.3 % (0-4.5); HEMATOCRIT 34.4 % (32.4-45.2); HEMOGLOBIN 11.1 GM/dL (10.7-15.3); LYMPH % 13.5 % (8-40); MCHC 32.1 g/dl (32.0-36.0); MEAN CELL VOLUME 81.1 fl (80-96); MEAN PLT VOLUME 6.7 fl (7.5-11.1); MONO % 6.8 % (3.8-10.2); PLATELET COUNT 299 K/MM3 (134-434); RBC 4.25 M/mm3 (3.60-5.2); RDW 15.2 % (11.6-15.6); WHITE BLOOD COUNT 8.7 K/mm3 (4.0-10.0)
--- NOTE | 2018-03-04 11:38 | PN ---
Progress Note (short form) - Note Progress Note: PULMONARY APPEARS COMFORTABLE SITTING UP IN BED VSS Constitutional: Yes: No Distress Eyes: Yes: Conjunctiva Clear, EOM Intact HENT: Yes: Atraumatic, Normocephalic Neck: Yes: Supple, Trachea Midline Cardiovascular: Yes: Regular Rate and Rhythm Respiratory: Yes: Diminished, Rhonchi. No: Accessory Muscle Use, Rales, SOB, SOB on Exertion, Stridor, Tachypnea, Wheezes ...Inspection: Yes: WNL ...Clubbing: No Gastrointestinal: Yes: Normal Bowel Sounds, Soft Renal/: Yes: WNL Musculoskeletal: Yes: WNL Extremities: Yes: WNL Edema: Yes Peripheral Pulses WNL: Yes Integumentary: Yes: WNL Neurological: Yes: Alert, Oriented ...Motor Strength: WNL Psychiatric: Yes: WNL, Alert, Oriented HGB 11.0 GMS POST TWO UNITS HYPOCHROMIC/MICROCYTIC INDICIES WITH LOW FERRITIN Chest X-ray: Report Reviewed, Image Reviewed Problem List - Problems (1) Anemia Code(s): D64.9 - ANEMIA, UNSPECIFIED (2) CHF (congestive heart failure) Code(s): I50.9 - HEART FAILURE, UNSPECIFIED (3) Diabetes Code(s): E11.9 - TYPE 2 DIABETES MELLITUS WITHOUT COMPLICATIONS Qualifiers: Diabetes mellitus type: type 2 Diabetes mellitus terminal gauger supervisor insulin use: with terminal gauger supervisor use Diabetes mellitus complication status: with unspecified complications Qualified Code(s): E11.8 - Type 2 diabetes mellitus with unspecified complications; Z79.4 - terminal gauger (current) use of insulin (4) HTN (hypertension) Code(s): I10 - ESSENTIAL (PRIMARY) HYPERTENSION (5) Lower extremity edema Code(s): R60.0 - LOCALIZED EDEMA (6) Pedal edema Code(s): R60.0 - LOCALIZED EDEMA Assessment/Plan SOB due to bilateral pleural effusions with atelectasis and anemia O2 as needed diuretics/cardio note reviewed Linear gastric ulcer biopsied/results pending Serina HENLEY MD
--- NOTE | 2018-03-04 13:29 | PN ---
Progress Note, Physician History of Present Illness: Pt seen and examined at bedside. She complains of right lower quadrant pain. She is going for ct scan today. She denies dysuria. - Current Medication List Current Medications: Active Medications Albuterol Sulfate (Ventolin 0.083% Nebulizer Soln -) 1 amp NEB Q6H PRN PRN Reason: SHORT OF BREATH/WHEEZING Amlodipine Besylate (Norvasc -) 5 mg PO DAILY [facility] Last Admin: 03/04/18 09:36 Dose: 5 mg Ferrous Sulfate (Feosol -) 325 mg PO DAILY [facility] Last Admin: 03/04/18 09:36 Dose: 325 mg Furosemide (Lasix -) 40 mg PO BID@0600,1400 [facility] Last Admin: 03/04/18 06:04 Dose: 40 mg Insulin Aspart (Novolog Vial Sliding Scale -) 1 vial SQ [facility]; Protocol Last Admin: 03/04/18 11:53 Dose: Not Given Insulin Detemir (Levemir Vial) 10 units SQ BID@0700,2200 [facility] Last Admin: 03/04/18 06:54 Dose: Not Given Metformin HCl (Glucophage Xr -) 750 mg PO DAILY@0700 [facility] Last Admin: 03/04/18 06:54 Dose: Not Given Pantoprazole Sodium (Protonix Iv) 40 mg IVPUSH BID [facility] Last Admin: 03/04/18 09:36 Dose: 40 mg Polyethylene Glycol (Miralax (For Daily Use) -) 17 gm PO TID [facility] Last Admin: 03/04/18 06:03 Dose: 17 gm Sitagliptin Phosphate (Januvia -) 100 mg PO DAILY@0700 [facility] Last Admin: 03/04/18 06:54 Dose: Not Given Valsartan (Diovan -) 80 mg PO DAILY [facility] Last Admin: 03/04/18 09:36 Dose: 80 mg - Objective Vital Signs: Vital Signs Temperature 98.4 F 03/04/18 09:00 Pulse Rate 70 03/04/18 09:00 Respiratory Rate 20 03/04/18 09:00 Blood Pressure 146/73 03/04/18 09:00 O2 Sat by Pulse Oximetry (%) 96 03/03/18 21:00 Constitutional: Yes: Calm Eyes: Yes: Conjunctiva Clear HENT: Yes: Atraumatic Neck: Yes: Supple Cardiovascular: Yes: S1, S2 Respiratory: Yes: CTA Bilaterally Gastrointestinal: Yes: Soft Genitourinary: Yes: WNL Musculoskeletal: Yes: WNL Edema: Yes Edema: LLE: Trace, RLE: Trace Neurological: Yes: Oriented Psychiatric: Yes: Oriented Labs: CBC, BMP 03/04/18 11:15 03/03/18 09:28 INR, PTT INR 1.01 (0.83-1.09) 03/03/18 09:28 Assessment/Plan Current Medications Generic Name Dose Route Start Last Admin Trade Name Freq PRN Reason Stop Dose Admin Albuterol Sulfate 1 amp 02/26/18 19:23 Ventolin 0.083% Nebulizer Soln - NEB Q6H PRN SHORT OF BREATH/WHEEZING Amlodipine Besylate 5 mg 02/27/18 10:00 03/04/18 09:36 Norvasc - PO 5 mg DAILY [facility] Administration Ferrous Sulfate 325 mg 03/01/18 15:45 03/04/18 09:36 Feosol - PO 325 mg DAILY [facility] Administration Furosemide 40 mg 03/02/18 06:00 03/04/18 06:04 Lasix - PO 40 mg BID@0600,1400 [facility] Administration Insulin Aspart 1 vial 02/28/18 16:30 03/04/18 11:53 Novolog Vial Sliding Scale - SQ Not Given [facility] Protocol Insulin Detemir 10 units 02/27/18 22:00 03/04/18 06:54 Levemir Vial SQ Not Given BID@0700,2200 [facility] Metformin HCl 750 mg 02/27/18 07:00 03/04/18 06:54 Glucophage Xr - PO Not Given DAILY@0700 [facility] Pantoprazole Sodium 40 mg 03/03/18 22:00 03/04/18 09:36 Protonix Iv IVPUSH 40 mg BID [facility] Administration Polyethylene Glycol 17 gm 03/01/18 22:00 03/04/18 06:03 Miralax (For Daily Use) - PO 17 gm TID [facility] Administration Sitagliptin Phosphate 100 mg 02/28/18 07:00 03/04/18 06:54 Januvia - PO Not Given DAILY@0700 [facility] Valsartan 80 mg 02/27/18 10:00 03/04/18 09:36 Diovan - PO 80 mg DAILY [facility] Administration Impression 1. azotemia 2. anemia 3. proteinuria 4. pleural effusions 5. htn 6. dm 7. cellulitis Plan - follow ct results - cont lasix - will need renal workup once discharged - will need outpt proteinuria workup - follow spep results - monitor hg - cont valsartan for now Dr Story
[2018-03-05] MEDS ORDERED: PT OWN MED DRAWER 7, Y5N ONE (06:10)
[2018-03-05] MEDS: sitaGLIPtin PHOSPHATE 100 MG TABLET (FP) PO SCH (06:52)
[2018-03-05] MEDS: FUROSEMIDE 40 MG TABLET (FP) PO SCH ×2 (06:52→15:44)
[2018-03-05] MEDS: POLYETHYLENE GLYCOL 3350 119 GM BTL PO SCH ×2 (06:55→15:44)
[2018-03-05] MEDS: INSULIN (LEVEMIR) 100 UNITS/ML UNITS SQ SCH (06:55)
[2018-03-05] MEDS: INSULIN SLIDING SCALE (NOVOLOG) 1 VIAL SQ SCH ×3 (06:55→17:19)
[2018-03-05] MEDS ORDERED: INSULIN (NOVOLOG) ASPART 100 UNITS/ML 10ML VIAL ONE (07:40)
--- NOTE | 2018-03-05 10:36 | DS ---
Physical Examination Vital Signs: Vital Signs Temperature 97.5 F L 03/05/18 06:32 Pulse Rate 75 03/05/18 06:32 Respiratory Rate 20 03/05/18 06:32 Blood Pressure 154/80 03/05/18 06:32 O2 Sat by Pulse Oximetry (%) 96 03/04/18 21:00 Findings/Remarks: Patient is a 63 y/o female with past medical history IDDM and HTN. Patient states having bilateral lower extremity edema worsening over the past few weeks. Patient also complain of experiencing SOB on exertion, able to walk 2 blocks before feeling SOB. CXR shows bilateral pleural effusion, L>R with compressive atelectasis. EKG is NSR and vascular study B/L lower extremity neg for DVT. BNP elevated. Constitutional: Yes: Well Nourished, No Distress, Calm Cardiovascular: Yes: Regular Rate and Rhythm Respiratory: Yes: Regular Gastrointestinal: Yes: Normal Bowel Sounds, Soft, Tenderness (RLQ) Musculoskeletal: Yes: WNL Extremities: Yes: WNL Edema: No Peripheral Pulses WNL: Yes Neurological: Yes: Alert, Oriented Psychiatric: Yes: Alert, Oriented Labs: CBC, BMP 03/04/18 11:15 03/03/18 09:28 Discharge Summary Reason For Visit: DM,ACUTE HEART FAILURE,EDEMA FOOT Current Active Problems Abdominal pain (Acute) Acute heart failure (Acute) Acute on chronic congestive heart failure (Acute) Anemia (Acute) Asymptomatic bacteriuria (Acute) Azotemia (Acute) CHF (congestive heart failure) (Acute) Colon polyp (Acute) Colon polyp (Acute) Diabetes (Acute) HTN (hypertension) (Acute) History of colon polyps (Acute) Lower extremity edema (Acute) Pedal edema (Acute) Hospital Course: Laboratory Last Values WBC 8.7 K/mm3 (4.0-10.0) 03/04/18 11:15 RBC 4.25 M/mm3 (3.60-5.2) 03/04/18 11:15 Hgb 11.1 GM/dL (10.7-15.3) 03/04/18 11:15 Hct 34.4 % (32.4-45.2) 03/04/18 11:15 MCV 81.1 fl (80-96) 03/04/18 11:15 MCH 26.0 pg (25.7-33.7) 03/04/18 11:15 MCHC 32.1 g/dl (32.0-36.0) 03/04/18 11:15 RDW 15.2 % (11.6-15.6) 03/04/18 11:15 Plt Count 299 K/MM3 (134-434) 03/04/18 11:15 MPV 6.7 fl (7.5-11.1) L 03/04/18 11:15 Absolute Neuts (auto) 6.3 K/mm3 (1.5-8.0) 03/04/18 11:15 Neutrophils % 73.0 % (42.8-82.8) 03/04/18 11:15 Lymphocytes % 13.5 % (8-40) 03/04/18 11:15 Monocytes % 6.8 % (3.8-10.2) 03/04/18 11:15 Eosinophils % 5.3 % (0-4.5) H 03/04/18 11:15 Basophils % 1.4 % (0-2.0) 03/04/18 11:15 Nucleated RBC % 0 % (0-0) 03/04/18 11:15 Retic Count 2.35 % (0.5-1.5) H 03/03/18 09:28 Haptoglobin 213 mg/dL (34-200) H 02/27/18 06:00 PT with INR 11.90 SEC (9.7-13.0) 03/03/18 09:28 INR 1.01 (0.83-1.09) 03/03/18 09:28 PTT (Actin FS) 28.9 SECONDS (25.2-36.5) 02/28/18 08:45 Sodium 135 mmol/L (136-145) L 03/03/18 09:28 Potassium 3.8 mmol/L (3.5-5.1) 03/03/18 09:28 Chloride 99 mmol/L (98-107) 03/03/18 09:28 Carbon Dioxide 28 mmol/L (21-32) 03/03/18 09:28 Anion Gap 8 MMOL/L (8-16) 03/03/18 09:28 BUN 32 mg/dL (7-18) H 03/03/18 09:28 Creatinine 1.0 mg/dL (0.55-1.3) 03/03/18 09:28 Creat Clearance w eGFR 56.18 (>60) 03/03/18 09:28 POC Glucometer 127 UNITS (80-120) 03/05/18 06:51 Random Glucose 160 mg/dL (74-106) H 03/03/18 09:28 Hemoglobin A1c % 7.7 % (4.2-6.3) H 02/27/18 06:30 Calcium 8.2 mg/dL (8.5-10.1) L 03/03/18 09:28 Iron 24 ug/dL (27-139) L 02/27/18 06:30 TIBC 329 ug/dL (250-450) 02/27/18 06:30 Iron Saturation 7 % (15-55) L 02/27/18 06:30 Ferritin 145.2 ng/ml (8-388) 03/02/18 06:30 Total Bilirubin 0.4 mg/dL (0.2-1) 03/01/18 08:00 AST 32 U/L (15-37) 03/01/18 08:00 ALT 34 U/L (13-61) 03/01/18 08:00 Alkaline Phosphatase 131 U/L (45-117) H 03/01/18 08:00 LD Total 314 U/L (84-246) H 02/27/18 06:30 Troponin I 0.02 ng/ml (0.00-0.05) 02/26/18 12: B-Natriuretic Peptide 2425.3 pg/ml (5-125) H 02/27/18 06:30 Total Protein 6.8 g/dl (6.4-8.2) 03/01/18 08:00 Albumin 2.8 g/dl (3.4-5.0) L 03/01/18 08:00 Vitamin B12 921 pg/ml (193-986) 02/26/18 12: Serum Folate 8 ng/mL (3.1-17.5) 02/27/18 06:30 TSH 2.24 uIU/ml (0.358-3.74) 02/27/18 06:30 Free T4 1.31 ng/dl (0.76-1.46) 02/27/18 06:30 Urine Color Colorless 03/02/18 16:30 Urine Appearance Clear 03/02/18 16:30 Urine pH 7.0 (5.0-8.0) 03/02/18 16:30 Ur Specific [place] 1.005 (1.010-1.035) L 03/02/18 16:30 Urine Protein 1+ (NEGATIVE) H 03/02/18 16:30 Urine Glucose (UA) Negative (NEGATIVE) 03/02/18 16:30 Urine Ketones Negative (NEGATIVE) 03/02/18 16:30 Urine Blood 1+ (NEGATIVE) H 03/02/18 16:30 Urine Nitrite Negative (NEGATIVE) 03/02/18 16:30 Urine Bilirubin Negative (<2.0 mg/dL) 03/02/18 16:30 Urine Urobilinogen Negative mg/dL (0.2-1.0) 03/02/18 16:30 Ur Leukocyte Esterase Negative (NEGATIVE) 03/02/18 16:30 Urine WBC (Auto) <1 /hpf (3-5) 03/02/18 16:30 Urine RBC (Auto) 1 /hpf (0-3) 03/02/18 16:30 Ur Epithelial Cells Rare /HPF (FEW) 03/02/18 16:30 Urine Bacteria Rare /hpf (NONE SEEN) 02/27/18 19:12 Hyaline Casts 1 /lpf 02/26/18 12:45 U Random Total Protein 27 mg/dl (0-11.9) H 02/28/18 01:49 Urine Creatinine < 13.0 mg/dL (30-50) L 02/28/18 01:49 Protein/Creatinin Ratio 2.2 MG/DL 02/28/18 01:49 Stool Occult Blood Negative (NEGATIVE) 02/26/18 15:40 IDRIS Screen Negative (.) 02/28/18 08:45 Blood Type B POSITIVE 02/26/18 22:00 Antibody Screen Negative 02/26/18 20:15 Crossmatch See Detail 02/26/18 20:15 Microbiology 02/27/18 19:12 Rectal Swab VRE Culture - Final NO VREF ISOLATED 02/26/18 12:45 Urine - Urine Clean Catch Urine Culture - Final Enterococcus Faecalis CT abd/pelvis reviewed, which showed rectal hematoma Condition: Stable - Instructions Referrals: Meghan Naidu MD [Primary Care Provider] - Disposition: HOME - Home Medications Comprehensive Discharge Medication List: Ambulatory Orders Amlodipine Besylate [Norvasc -] 5 mg PO DAILY tablet 06/22/15 Insulin (Levemir) [Levemir Vial] 12 units SQ HS ml 06/22/15 Insulin (Levemir) [Levemir Vial] 15 units SQ AM ml 06/22/15 Multivitamins [Multivit ([facility] Formulary)] 1 tab PO DAILY tab 06/22/15 Valsartan [Diovan] 80 mg PO DAILY tablet 06/22/15 Metformin HCl ER 750 mg PO BID 08/16/15 Ammonium Lactate Cream [Lac-Hydrin 12% Cream -] 1 applic TP DAILY #1 tube Ferrous Sulfate [Feosol] 325 mg PO DAILY #30 ud 03/05/18 Furosemide [Lasix -] 40 mg PO BID@0600,1400 #60 tablet 03/05/18 Hydrocortisone 1% Ointment [Hytone 1% Ointment -] 1 applic TP DAILY #1 tube 04/22 Pantoprazole Sodium [Protonix -] 40 mg PO BID #60 tablet.ec 03/05/18 Polyethylene Glycol 3350 [Miralax 119 gm Btl -] 17 gm PO TID #2 bottle 03/05/18 Sitagliptin Phosphate [Januvia -] 100 mg PO DAILY@0700 #30 ud 03/05/18 metFORMIN XR [Glucophage Xr -] 750 mg PO DAILY@0700 #30 tab.sr.24h 03/05/18
[2018-03-05] MEDS: amLODIPine BESYLATE 5 MG TABLET (FP) PO SCH (10:50)
[2018-03-05] MEDS: VALSARTAN 80 MG TABLET (UD) PO SCH (10:50)
[2018-03-05] MEDS: FERROUS SO4 325 MG TABLET (FP) PO SCH (10:50)
[2018-03-05] MEDS: PANTOPRAZOLE SODIUM 40 MG VIAL IVPUSH SCH (10:51)
--- NOTE | 2018-03-05 10:55 | CONSULT ---
Consult Consult Specialty:: General Surgery Reason for Consultation:: rectus sheath hematoma - History of Present Illness Chief Complaint: abdominal pain History of Present Illness: 63yo female with past medical history IDDM and HTN. Patient states having bilateral lower extremity edema worsening over the past few weeks. Patient also complain of experiencing SOB on exertion, able to walk 2 blocks before feeling SOB. CXR shows bilateral pleural effusion, L>R with compressive atelectasis. EKG is NSR and vascular study B/L lower extremity neg for DVT. BNP elevated. rectus sheath hematoma seen on CT Scan, had had heparin injection in pannus of RLQ. RLQ tenderness on exam. we were asked to assess. - History Source History Provided By: Patient, Medical Record Limitations to Obtaining History: No Limitations - Past Medical History Cardio/Vascular: Yes: HTN Pulmonary: No: COPD, O2 Dependent, Previously Intubated, Pulmonary Embolus, Pulmonary Fibrosis, Sleep Apnea ...: No Endocrine: Yes: Diabetes Mellitus (DM II) - Past Surgical History Past Surgical History: Yes: None, Tonsillectomy Additional Surgical History: Wound debridements of B/L LE - Alcohol/Substance Use Hx Alcohol Use: No History of Substance Use: reports: None - Smoking History Smoking history: Never smoked Have you smoked in the past 12 months: No - Social History Usual Living Arrangement: With Spouse ADL: Independent Occupation: Unemployed History of Recent Travel: No Home Medications - Allergies Allergies/Adverse Reactions: Allergies Allergy/AdvReac Type Severity Reaction Status Date / Time No Known Allergies Allergy Verified 02/26/18 12:36 - Home Medications Home Medications: Ambulatory Orders Amlodipine Besylate [Norvasc -] 5 mg PO DAILY tablet 06/22/15 Insulin (Levemir) [Levemir Vial] 12 units SQ HS ml 06/22/15 Insulin (Levemir) [Levemir Vial] 15 units SQ AM ml 06/22/15 Multivitamins [Multivit ([facility])] 1 tab PO DAILY tab 06/22/15 Valsartan [Diovan] 80 mg PO DAILY tablet 06/22/15 Metformin HCl ER 750 mg PO BID 08/16/15 Ammonium Lactate Cream [Lac-Hydrin 12% Cream -] 1 applic TP DAILY #1 tube Ferrous Sulfate [Feosol] 325 mg PO DAILY #30 ud 01/02/19 Furosemide [Lasix -] 40 mg PO BID@0600,1400 #60 tablet 03/05/18 Hydrocortisone 1% Ointment [Hytone 1% Ointment -] 1 applic TP DAILY #1 tube 04/22 Pantoprazole Sodium [Protonix -] 40 mg PO BID #60 tablet.ec 03/05/18 Polyethylene Glycol 3350 [Miralax 119 gm Btl -] 17 gm PO TID #2 bottle 03/05/18 Sitagliptin Phosphate [Januvia -] 100 mg PO DAILY@0700 #30 ud 03/05/18 metFORMIN XR [Glucophage Xr -] 750 mg PO DAILY@0700 #30 tab.sr.24h 03/05/18 Family Disease History - Family Disease History Family Disease History: Heart Disease: Father (: 78: heart problems and CVA) , Other: Father, Brother (1, alive: DM II), Sister (None), Son (None), Daughter (None) Other Family History: No family history of colorectal cancer or other GI malignancy Review of Systems - Review of Systems Constitutional: denies: Chills, Fever Eyes: denies: Blind Spots, Recent Change in Vision HENT: denies: Difficult Swallowing, Throat Pain Neck: denies: Decreased ROM, Pain on Movement Cardiovascular: denies: Chest Pain, Palpitations Respiratory: denies: Cough, SOB Gastrointestinal: denies: Abdominal Pain, Constipation, Nausea Genitourinary: denies: Discharge, Dysuria, Flank Pain Breasts: reports: No Symptoms Reported. denies: Pain Musculoskeletal: denies: Joint Swelling, Muscle Pain Integumentary: denies: Bruising, Lesions, Lump Neurological: denies: Seizure, Syncope Endocrine: denies: Unexplained Weight Gain, Unexplained Weight Loss Hematology/Lymphatic: denies: Easily Bruised, Excessive Bleeding Psychiatric: denies: Anxiety, Depression Physical Exam Vital Signs: Vital Signs Temperature 97.7 F 03/05/18 10:40 Pulse Rate 78 03/05/18 10:40 Respiratory Rate 20 03/05/18 10:40 Blood Pressure 147/85 03/05/18 10:40 O2 Sat by Pulse Oximetry (%) 96 03/04/18 21:00 Constitutional: Yes: Well Nourished, No Distress, Calm Eyes: Yes: Conjunctiva Clear, EOM Intact HENT: Yes: Atraumatic, Normocephalic Neck: Yes: Supple, Trachea Midline Cardiovascular: Yes: Regular Rate and Rhythm, S1, S2 Respiratory: Yes: Regular, CTA Bilaterally Gastrointestinal: Yes: Normal Bowel Sounds, Soft, Palpable Mass (right lower rectus sheeath mass softball sized), Tenderness (Right lower midline). No: Tenderness, Epigastrium, Tenderness, Rebound ...Rectal Exam: Yes: Deferred Renal/: No: CVA Tenderness - Left, CVA Tenderness - Right Musculoskeletal: No: Joint Swelling, Muscle Pain, Muscle Weakness Extremities: No: Cool, Cyanosis Edema: No Peripheral Pulses WNL: Yes Integumentary: No: Incision, Jaundice, Laceration Neurological: Yes: Alert, Oriented Psychiatric: Yes: Alert, Oriented Labs: CBC, BMP 03/04/18 11:15 03/03/18 09:28 Imaging - Results Cat Scan: Report Reviewed, Image Reviewed (right lower rectus hematoma) Problem List - Problems (1) Rectus sheath hematoma Assessment/Plan: 63 yo female MMP with right sided abdominal pain secondary to rectus sheath hematoma, secondary to vessel injury caused by improper SQ heparin injection in the abdomen in the absence of direct trauma. there is no indication for acute surgical intervention. Adequate analgesia moist warm compresses for comfort Correct any coagulopathy no need for surgical followup Discharge is at the discretion of primary team Discharge is at the discretion of the primary team Thank you for the opportunity to participate in the care of this patient. Code(s): S30.1XXA - CONTUSION OF ABDOMINAL WALL, INITIAL ENCOUNTER Qualifiers: Encounter type: initial encounter Qualified Code(s): S30.1XXA - Contusion of abdominal wall, initial encounter (2) Acute on chronic congestive heart failure Code(s): I50.9 - HEART FAILURE, UNSPECIFIED Qualifiers: Heart failure type: systolic Qualified Code(s): I50.23 - Acute on chronic systolic (congestive) heart failure (3) Anemia Code(s): D64.9 - ANEMIA, UNSPECIFIED Qualifiers: Anemia type: iron deficiency (4) CHF (congestive heart failure) Code(s): I50.9 - HEART FAILURE, UNSPECIFIED Qualifiers: Heart failure type: diastolic (5) Right lower quadrant abdominal pain Code(s): R10.31 - RIGHT LOWER QUADRANT PAIN (6) Sepsis Code(s): A41.9 - SEPSIS, UNSPECIFIED ORGANISM (7) Type 2 diabetes mellitus with other circulatory complications Code(s): E11.59 - TYPE 2 DIABETES MELLITUS WITH OTH CIRCULATORY COMPLICATIONS
--- NOTE | 2018-03-05 11:34 | PN ---
Progress Note, Physician Chief Complaint: Right sided abdominal pain History of Present Illness: Pt seen/examined at bedside, still with right mostly lower abdominal pain which she states started 3-4 days ago, though slightly improved this am. CT abd yesterday revealing a rectus sheath hematoma. Also with loose stool yesterday though now more formed per pt. Denies melena or hematochezia. Tolerating diet well. - Current Medication List Current Medications: Active Medications Albuterol Sulfate (Ventolin 0.083% Nebulizer Soln -) 1 amp NEB Q6H PRN PRN Reason: SHORT OF BREATH/WHEEZING Amlodipine Besylate (Norvasc -) 5 mg PO DAILY [facility] Last Admin: 03/05/18 10:50 Dose: 5 mg Ferrous Sulfate (Feosol -) 325 mg PO DAILY [facility] Last Admin: 03/05/18 10:50 Dose: 325 mg Furosemide (Lasix -) 40 mg PO BID@0600,1400 [facility] Last Admin: 03/05/18 06:52 Dose: 40 mg Insulin Aspart (Novolog Vial Sliding Scale -) 1 vial SQ [facility]; Protocol Last Admin: 03/05/18 06:55 Dose: Not Given Insulin Detemir (Levemir Vial) 10 units SQ BID@0700,2200 [facility] Last Admin: 03/05/18 06:55 Dose: Not Given Metformin HCl (Glucophage Xr -) 750 mg PO DAILY@0700 [facility] Last Admin: 03/04/18 06:54 Dose: Not Given Pantoprazole Sodium (Protonix Iv) 40 mg IVPUSH BID [facility] Last Admin: 03/05/18 10:51 Dose: 40 mg Polyethylene Glycol (Miralax (For Daily Use) -) 17 gm PO TID [facility] Last Admin: 03/05/18 06:55 Dose: Not Given Sitagliptin Phosphate (Januvia -) 100 mg PO DAILY@0700 [facility] Last Admin: 03/05/18 06:52 Dose: 100 mg Valsartan (Diovan -) 80 mg PO DAILY [facility] Last Admin: 03/05/18 10:50 Dose: 80 mg - Objective Vital Signs: Vital Signs Temperature 97.7 F 03/05/18 10:40 Pulse Rate 78 03/05/18 10:40 Respiratory Rate 20 03/05/18 10:40 Blood Pressure 147/85 03/05/18 10:40 O2 Sat by Pulse Oximetry (%) 96 03/04/18 21:00 Constitutional: Yes: Well Nourished, No Distress, Calm Cardiovascular: Yes: WNL, Regular Rate and Rhythm Respiratory: Yes: WNL, Regular, CTA Bilaterally Gastrointestinal: Yes: WNL, Normal Bowel Sounds, Soft (Mildly tender in RLQ on palpation, soft, nondistended, no visible hematoma or ecchymoses seen) Edema: No Labs: CBC, BMP 03/04/18 11:15 03/03/18 09:28 INR, PTT INR 1.01 (0.83-1.09) 03/03/18 09:28 Problem List - Problems (1) Abdominal pain Assessment/Plan: Mildly improved today, Hb stable s/p CT imaging revealing a right rectus sheath hematoma, possibly secondary to s/c injections. No obvious abdominal wall trauma. Seen by surgery advising conservative measures. Code(s): R10.9 - UNSPECIFIED ABDOMINAL PAIN Qualifiers: Abdominal location: right lower quadrant Qualified Code(s): R10.31 - Right lower quadrant pain (2) Anemia Assessment/Plan: Likely multifactorial in setting of chronic disease however with component of iron deficiency s/p EGD on 03/03/18 revealing a 10mm linear gastric body ulcer with intermittent oozing during the procedure s/p epinephrine injection and endoclip placement, no bleeding seen at end of procedure. Small gastric submucosal lesion seen in gastric fundus and diminutive gastric polyps (likely fundic gland), biopsies taken (results pending). Hb stable and improving. No overt GI bleeding. -Continue to monitor Hb -Continue PPI bid, can change to PPI daily tomorrow -Follow up pathology results -Avoid NSAIDs Code(s): D64.9 - ANEMIA, UNSPECIFIED Qualifiers: Anemia type: iron deficiency (3) Colon polyp Assessment/Plan: s/p colonoscopy on 03/03/18 revealing suboptimal prep, normal appearing terminal ileum, 15-20mm cecal polyp, not removed on this exam due to prep and polyp position, multiple biopsies taken. 3-4mm sigmoid colon polyp, biopsied. Large amount of liquid and semiliquid stool was seen, other large lesions not seen however smaller or flat lesions could have been missed. -Follow up colon pathology results -Pending results, pt will require repeat colonoscopy with polypectomy with extended colon prep -Findings and recommendations were discussed with pt with patient -Pending disposition, pt will require outpt GI follow up Attempted to contact primary team, Misael Brown NP, awaiting call back. Code(s): K63.5 - POLYP OF COLON
--- NOTE | 2018-03-05 12:01 | PN ---
Progress Note (short form) - Note Progress Note: PULMONARY States breathing is improving. Minimal cough. No fevers. Vital Signs Period Temp Pulse Resp BP Sys/Restrepo Pulse Ox Last 24 Hr 97.5 F-153 F 75-80 20-20 147-154/75-85 96 Gen: NAD at rest Heart: RRR Lung: decreased breath sounds at the bases Abd: soft, nontender Ext: no edema CBC, BMP 03/04/18 11:15 03/03/18 09:28 Active Medications Albuterol Sulfate (Ventolin 0.083% Nebulizer Soln -) 1 amp NEB Q6H PRN PRN Reason: SHORT OF BREATH/WHEEZING Amlodipine Besylate (Norvasc -) 5 mg PO DAILY [facility] Last Admin: 03/05/18 10:50 Dose: 5 mg Ferrous Sulfate (Feosol -) 325 mg PO DAILY [facility] Last Admin: 03/05/18 10:50 Dose: 325 mg Furosemide (Lasix -) 40 mg PO BID@0600,1400 [facility] Last Admin: 03/05/18 06:52 Dose: 40 mg Insulin Aspart (Novolog Vial Sliding Scale -) 1 vial SQ [facility]; Protocol Last Admin: 03/05/18 06:55 Dose: Not Given Insulin Detemir (Levemir Vial) 10 units SQ BID@0700,2200 [facility] Last Admin: 03/05/18 06:55 Dose: Not Given Metformin HCl (Glucophage Xr -) 750 mg PO DAILY@0700 [facility] Last Admin: 03/04/18 06:54 Dose: Not Given Pantoprazole Sodium (Protonix Iv) 40 mg IVPUSH BID [facility] Last Admin: 03/05/18 10:51 Dose: 40 mg Polyethylene Glycol (Miralax (For Daily Use) -) 17 gm PO TID [facility] Last Admin: 03/05/18 06:55 Dose: Not Given Sitagliptin Phosphate (Januvia -) 100 mg PO DAILY@0700 [facility] Last Admin: 03/05/18 06:52 Dose: 100 mg Valsartan (Diovan -) 80 mg PO DAILY [facility] Last Admin: 03/05/18 10:50 Dose: 80 mg A/P Acute on Chronic Systolic Heart Failure Pleural Effusions Atelectasis from above HTN DM Cellulitis - continue lasix - monitor urine output, creatinine - inhaled bronchodilators - d/c planning
--- NOTE | 2018-03-05 12:25 | PN ---
Progress Note, Physician History of Present Illness: Pt seen and examined at bedside. She is awake and alert. She denies shortness of breath. - Current Medication List Current Medications: Active Medications Albuterol Sulfate (Ventolin 0.083% Nebulizer Soln -) 1 amp NEB Q6H PRN PRN Reason: SHORT OF BREATH/WHEEZING Amlodipine Besylate (Norvasc -) 5 mg PO DAILY [facility] Last Admin: 03/05/18 10:50 Dose: 5 mg Ferrous Sulfate (Feosol -) 325 mg PO DAILY [facility] Last Admin: 03/05/18 10:50 Dose: 325 mg Furosemide (Lasix -) 40 mg PO BID@0600,1400 [facility] Last Admin: 03/05/18 06:52 Dose: 40 mg Insulin Aspart (Novolog Vial Sliding Scale -) 1 vial SQ ACHS [facility]; Protocol Last Admin: 03/05/18 06:55 Dose: Not Given Insulin Detemir (Levemir Vial) 10 units SQ BID@0700,2200 [facility] Last Admin: 03/05/18 06:55 Dose: Not Given Metformin HCl (Glucophage Xr -) 750 mg PO DAILY@0700 [facility] Last Admin: 03/04/18 06:54 Dose: Not Given Pantoprazole Sodium (Protonix Iv) 40 mg IVPUSH BID [facility] Last Admin: 03/05/18 10:51 Dose: 40 mg Polyethylene Glycol (Miralax (For Daily Use) -) 17 gm PO TID [facility] Last Admin: 03/05/18 06:55 Dose: Not Given Sitagliptin Phosphate (Januvia -) 100 mg PO DAILY@0700 [facility] Last Admin: 03/05/18 06:52 Dose: 100 mg Valsartan (Diovan -) 80 mg PO DAILY [facility] Last Admin: 03/05/18 10:50 Dose: 80 mg - Objective Vital Signs: Vital Signs Temperature 97.7 F 03/05/18 10:40 Pulse Rate 78 03/05/18 10:40 Respiratory Rate 20 03/05/18 10:40 Blood Pressure 147/85 03/05/18 10:40 O2 Sat by Pulse Oximetry (%) 96 03/05/18 09:00 Constitutional: Yes: Calm Eyes: Yes: Conjunctiva Clear HENT: Yes: Atraumatic Cardiovascular: Yes: S1, S2 Respiratory: Yes: CTA Bilaterally Gastrointestinal: Yes: Soft Genitourinary: Yes: WNL Musculoskeletal: Yes: WNL Edema: Yes Edema: LLE: Trace, RLE: Trace Neurological: Yes: Oriented Psychiatric: Yes: Oriented Labs: CBC, BMP 03/04/18 11:15 03/03/18 09:28 INR, PTT INR 1.01 (0.83-1.09) 03/03/18 09:28 Assessment/Plan Current Medications Generic Name Dose Route Start Last Admin Trade Name Freq PRN Reason Stop Dose Admin Albuterol Sulfate 1 amp 02/26/18 19:23 Ventolin 0.083% Nebulizer Soln - NEB Q6H PRN SHORT OF BREATH/WHEEZING Amlodipine Besylate 5 mg 02/27/18 10:00 03/05/18 10:50 Norvasc - PO 5 mg DAILY [facility] Administration Ferrous Sulfate 325 mg 03/01/18 15:45 03/05/18 10:50 Feosol - PO 325 mg DAILY [facility] Administration Furosemide 40 mg 03/02/18 06:00 03/05/18 06:52 Lasix - PO 40 mg BID@0600,1400 [facility] Administration Insulin Aspart 1 vial 02/28/18 16:30 03/05/18 06:55 Novolog Vial Sliding Scale - SQ Not Given ACHS [facility] Protocol Insulin Detemir 10 units 02/27/18 22:00 03/05/18 06:55 Levemir Vial SQ Not Given BID@0700,2200 [facility] Metformin HCl 750 mg 02/27/18 07:00 03/04/18 06:54 Glucophage Xr - PO Not Given DAILY@0700 [facility] Pantoprazole Sodium 40 mg 03/03/18 22:00 03/05/18 10:51 Protonix Iv IVPUSH 40 mg BID [facility] Administration Polyethylene Glycol 17 gm 03/01/18 22:00 03/05/18 06:55 Miralax (For Daily Use) - PO Not Given TID [facility] Sitagliptin Phosphate 100 mg 02/28/18 07:00 03/05/18 06:52 Januvia - PO 100 mg DAILY@0700 [facility] Administration Valsartan 80 mg 02/27/18 10:00 03/05/18 10:50 Diovan - PO 80 mg DAILY [facility] Administration Impression 1. azotemia 2. anemia 3. proteinuria 4. pleural effusions 5. htn 6. dm 7. cellulitis 8. CHF Plan - cont diuretics - will need renal follow up after discharge - avoid nsaids - follow serologies - will need renal workup once discharged - will need outpt proteinuria workup - follow spep results - monitor hg - cont valsartan for now - discussed findings with pt and she says she will follow up after discharge. Also discussed with primary team. Dr Story
[2018-03-05 16:36] VITALS: BP 109/89; PULSE 89; TEMP 98.2
--- NOTE | 2018-03-06 15:24 | PATH ---
Surgical Pathology Report Patient Name: MARCEL MENDEZ [facility]. Rec. #: [id number] /Age/Gender: 1955 (Age: 63) / F Account: [id number] Location: [address] [place] [address] Taken: 03/03/2018 Received: 03/05/2018 Reported: 03/06/2018 Physicians: MD Meghan Garcia M.D. Specimen(s) Received A: SMALL BOWEL, BIOPSY B: BX ANTRUM C: BX OF FUNDUS SUBMUCOSAL LESION D: BX GASTRIC POLYP E: BX CECAL POLYP F: POLYP SIGMOID COLON Clinical History Anemia Postoperative diagnosis: Submucosal gastric fundus lesion, gastric polyp, gastric ulcer, colon polyps Final Diagnosis A. SMALL BOWEL, BIOPSY: DUODENAL MUCOSA WITHOUT SIGNIFICANT PATHOLOGIC FINDINGS. B. STOMACH, ANTRUM, BIOPSY: GASTRIC ANTRAL MUCOSA WITH MILD CHRONIC GASTRITIS. IMMUNOHISTOCHEMICAL STAIN FOR H. PYLORI IS NEGATIVE. C. STOMACH, FUNDUS, SUBMUCOSAL LESION, BIOPSY: GASTRIC BODY MUCOSA WITH MILD CHRONIC GASTRITIS AND SCANT SUPERFICIAL SUBMUCOSAL TISSUE. IMMUNOHISTOCHEMICAL STAIN FOR H. PYLORI IS NEGATIVE. D. STOMACH, POLYP, BIOPSY: FUNDIC GLAND POLYP. IMMUNOHISTOCHEMICAL STAIN FOR H. PYLORI IS NEGATIVE. E. CECUM, POLYP, BIOPSY: TUBULAR ADENOMA. F. SIGMOID COLON, POLYP, BIOPSY: HYPERPLASTIC POLYP. Electronically Signed Karlie Mota M.D. Gross Description A. Received in formalin, labeled "small bowel biopsy" are 2 arauz, irregular portions of soft tissue measuring 0.3 and 0.5 cm. in greatest dimension. The specimens are submitted in toto in one cassette. B. Received in formalin, labeled "antral biopsy" are 2 arauz, irregular portions of soft tissue measuring 0.2 and 0.4 cm. in greatest dimension. The specimens are submitted in toto in one cassette. C. Received in formalin, labeled "gastric fundus submucosal lesion" are 2 arauz, irregular portions of soft tissue measuring 0.1 and 0.3 cm. in greatest dimension. The specimens are submitted in toto in one cassette. D. Received in formalin, labeled "gastric polyp biopsy" is a arauz, irregular portion of soft tissue measuring 0.1 cm. in greatest dimension. The specimen is submitted in toto in one cassette. E. Received in formalin, labeled "cecal polyp biopsy" are 7 arauz, irregular portions of soft tissue ranging from 0.1-0.5 cm. in greatest dimension. The specimens are submitted in toto in one cassette. F. Received in formalin, labeled "sigmoid colon polyp biopsy" are 3 arauz, irregular portions of soft tissue ranging from 0.2-0.4 cm. in greatest dimension. The specimens are submitted in toto in one cassette. 03/05/2018 [facility]03/05/2018
== END 2018-03-05 18:24 | disposition home or self-care (01) | DRG 291 ==
LOC: JER 10:04 → JERBED 14:33 → J6S 21:22
PROVIDERS: ADMIT Family Medicine; ATTEND Family Medicine
PROC: 30233N1 Transfusion of Nonautologous Red Blood Cells into Peripheral Vein, Percutaneous Approach (ICD-10-PCS; principal; 2018-02-27)
PROC: 0DDH8ZX Extraction of Cecum, Via Natural or Artificial Opening Endoscopic, Diagnostic (ICD-10-PCS; 2018-03-03)
PROC: 3E0G8GC Introduction of Other Therapeutic Substance into Upper GI, Via Natural or Artificial Opening Endoscopic (ICD-10-PCS; 2018-03-03)
PROC: 0DD68ZX Extraction of Stomach, Via Natural or Artificial Opening Endoscopic, Diagnostic (ICD-10-PCS; 2018-03-03)
PROC: 0DB68ZX Excision of Stomach, Via Natural or Artificial Opening Endoscopic, Diagnostic (ICD-10-PCS; 2018-03-03)
PROC: 0DBN8ZX Excision of Sigmoid Colon, Via Natural or Artificial Opening Endoscopic, Diagnostic (ICD-10-PCS; 2018-03-03)
DX: I11.0 Hypertensive heart disease with heart failure (principal); K25.4 Chronic or unspecified gastric ulcer with hemorrhage; M86.9 Osteomyelitis, unspecified; J98.11 Atelectasis; I50.23 Acute on chronic systolic (congestive) heart failure; D50.9 Iron deficiency anemia, unspecified; E11.9 Type 2 diabetes mellitus without complications; Z79.4 Long term (current) use of insulin; Z79.84 Long term (current) use of oral hypoglycemic drugs; E11.69 Type 2 diabetes mellitus with other specified complication; K64.4 Residual hemorrhoidal skin tags; I34.0 Nonrheumatic mitral (valve) insufficiency; Z86.010 Personal history of colon polyps; D13.1 Benign neoplasm of stomach; D12.0 Benign neoplasm of cecum; D12.5 Benign neoplasm of sigmoid colon; M79.81 Nontraumatic hematoma of soft tissue; T45.515A Adverse effect of anticoagulants, initial encounter; K64.8 Other hemorrhoids
CPT/HCPCS: 36415; 36430; 36511; 71045-TC-FY; 71046-TC-FY; 74176-TC; 76775-TC; 80048; 80053; 81003; 81015; 82272; 82570; 82607; 82728; 82746; 82962; 83010; 83036; 83540; 83550; 83615; 83880; 84155; 84156; 84165; 84439; 84443; 84484; 85025; 85027; 85044; 85610; 85730; 86038; 86850; 86900; 86901; 86922; 87081; 87086; 87186; 88305-TC; 93005; 93010; 93306-TC; 93970-TC; 97116-GP; 97161-GP; 99283-25; J1644; J1756; P9038; P9058

== ENCOUNTER 2018-12-12 15:23 | Inpatient (IN) | payer BC ==
--- NOTE | 2018-12-12 16:59 | PDOC ---
History of Present Illness - General Chief Complaint: Edema Stated Complaint: SWELLING IN LOWER EXTREMITIES Time Seen by Provider: 12/12/18 16:59 History Source: Patient Exam Limitations: No Limitations - History of Present Illness Initial Comments: 12/12/18 16:59 HPI: 63yo F with PMH IDDM and HTN presenting with complaints of anxiety, stress , numbness in all extremities, chest discomfort, and dyspnea on exertion for about 3 weeks. Patient has been taking care of her who is currently admitted at [facility] and reports that she has neglected herself and started to fall apart. She has not been taking any of her medications as prescribed and reports that she doesnt even have them at home. Reports that her SBP was 195 when she left home (183 during interview) and she does not know what BP medication she is on. She reports blurry vision from a chronic eye issue which cannot be treated surgically due to edema, she sees ophthomology for this. She also endorses worsening dyspnea with exertion, and b/l LE edema. Pt denies any fevers/chills, headache, chest pain, palpitations, nausea/vomiting , abdominal pain, urinary symptoms, blood in urine or stool, diarrhea/ constipation, or leg swelling. Social: Pt denies any cigarette, alcohol, or drug use Surgical: denies Family: denies Past History - Travel Traveled outside of the country in the last 30 days: No Close contact w/someone who was outside of country & ill: No - Past Medical History Allergies/Adverse Reactions: Allergies Allergy/AdvReac Type Severity Reaction Status Date / Time No Known Allergies Allergy Verified 12/12/18 16:07 Home Medications: Ambulatory Orders Amlodipine Besylate [Norvasc -] 5 mg PO DAILY tablet 06/22/15 Insulin (Levemir) [Levemir Vial] 12 units SQ HS ml 06/22/15 Insulin (Levemir) [Levemir Vial] 15 units SQ AM ml 06/22/15 Multivitamins [Multivit ([facility] Formulary)] 1 tab PO DAILY tab 06/22/15 Valsartan [Diovan] 80 mg PO DAILY tablet 06/22/15 Metformin HCl ER 750 mg PO BID 08/16/15 Ammonium Lactate Cream [Lac-Hydrin 12% Cream -] 1 applic TP DAILY #1 tube Ferrous Sulfate [Feosol] 325 mg PO DAILY #30 ud 03/05/18 Furosemide [Lasix -] 40 mg PO BID@0600,1400 #60 tablet 03/05/18 Hydrocortisone 1% Ointment [Hytone 1% Ointment -] 1 applic TP DAILY #1 tube 04/22 Pantoprazole Sodium [Protonix -] 40 mg PO BID #60 tablet.ec 03/05/18 Polyethylene Glycol 3350 [Miralax 119 gm Btl -] 17 gm PO TID #2 bottle 03/05/18 Sitagliptin Phosphate [Januvia -] 100 mg PO DAILY@0700 #30 ud 03/05/18 metFORMIN XR [Glucophage Xr -] 750 mg PO DAILY@0700 #30 tab.sr.24h 03/05/18 COPD: No DVT: No Diabetes: Yes GI Disorders: Yes (IBS) HTN: Yes Hypercholesterolemia: No - Surgical History Cardiac Surgery: No Lung Surgery: No - Immunization History Immunization Up to Date: Yes - Psycho Social/Smoking Cessation Hx Smoking History: Never smoked Have you smoked in the past 12 months: No Information on smoking cessation initiated: No Hx Alcohol Use: No Drug/Substance Use Hx: No Substance Use Type: None Hx Substance Use Treatment: No Review of Systems - Review of Systems Able to Perform ROS?: Yes Is the patient limited Jordanian proficient: Yes Constitutional: Yes: See HPI, Weakness. No: Chills, Diaphoresis, Fever, Unexplained wgt Loss HEENTM: Yes: See HPI, Blurred Vision, Cataracts. No: Nose Pain, Nose Congestion , Tinnitus, Throat Swelling, Mouth Pain Respiratory: Yes: Shortness of Breath, SOB with Exertion. No: Cough, Orthopnea , SOB at Rest, Wheezing, Productive cough, Hemoptysis Cardiac (ROS): Yes: Edema, Lightheadedness, Chest Tightness. No: Chest Pain, Irregular Heart Rate, Palpitations, Syncope ABD/GI: No: Abdominal Distended, Constipated, Diarrhea, Nausea, Poor Appetite, Poor Fluid Intake, Rectal Bleeding, Vomiting, Tarry Stools : No: Burning, Dysuria, Frequency, Pain Musculoskeletal: No: Back Pain, Joint Pain, Joint Swelling, Muscle Weakness Integumentary: No: Bruising, Pruritus, Rash Neurological: Yes: See HPI, Numbness, Unsteady Gait. No: Headache, Tingling, Weakness Psychiatric: Yes: Anxiety, Stressors, Emotional Problems. No: Depression, Change in Appetite Endocrine: Yes: Unexplained Weight Gain. No: Excessive Sweating, Intolerance to Cold, Intolerance to Heat Hematologic/Lymphatic: No: Anemia, Blood Clots, Easy Bruising All Other Systems: Reviewed and Negative *Physical Exam - Vital Signs Last Vital Signs Temp Pulse Resp BP Pulse Ox 74 16 110/90 100 12/12/18 15:33 12/12/18 15:33 12/12/18 15:33 12/12/18 15:33 - Physical Exam Comments: 12/12/18 17:43 Vitals reviewed, repeat BP 183/114, cuff appropriately sized Elderly woman, appears older than stated age, laying in bed, no acute distress, slightly pale EOMI, MMM, NCAT, trachea midline, normal morphologies RRR, nl s1/s2, no murmurs appreciated CTABL, normal WOB, no wheezes / rales / rhonchi Soft, nontender, nondistended Legs soft, nontender, WWP, no clubbing / cyanosis, some LE pitting edema - compression socks in place Alert and oriented, CN 2-12 intact, good LE strength, sensation to light touch preserved Depressed affect Heart Score/ECG Review - History History: Slightly suspicious - Electrocardiogram EKG: Normal - Age Age: 45-65 - Risk Factors Risk Factors Heart Score: Yes Hx Hypertension, Yes Hx Diabetes, Yes Hx Obesity Based on the list above the patient has:: >/=3 risk factors or Hx atherosclerotic disease - Troponin Troponin: </= normal limit - Score Heart Score - Total: 3 Medical Decision Making - Medical Decision Making 12/12/18 18:00 63yo F with PMH IDDM and HTN presenting with complaints of anxiety, stress, numbness in all extremities, chest discomfort, and dyspnea on exertion for about 3 weeks. Patient history suggests a social / psychiatric component to her presentation, however there are potentially serious concerning symptoms including her chest pain, edema, and her medication noncompliance. DDX: CHF exacerbation, r/o ACS, depression. Most likely admission for observation at a minimum pending labs. Patient would benefit from some form of evaluation/ therapy or pharmacologic intervention for likely depression. -CBC, CMP, CP, BNP, TSH -CXR, EKG -UA -BGM 12/12/18 18:48 -Patient getting labs drawn, will f/u next BP and order home 5mg Norovasc if hypertensive -Patient now reporting anemia during February hospitalization that required blood transfusion -Type & Screen ordered 12/12/18 18:59 -Pressure 155/92, home BP med ordered -Signed out to overnight internet application developer Discharge - Discharge Information Problems reviewed: Yes Clinical Impression/Diagnosis: Lower extremity edema, Chest discomfort Condition: Guarded - Follow up/Referral Referrals: Meghan Naidu MD [Primary Care Provider] - - Patient Discharge Instructions - Post Discharge Activity
[2018-12-12] MEDS ORDERED: amLODIPine BESYLATE 5 MG TABLET (FP) PO ONE (19:02)
[2018-12-12] MEDS ORDERED: amLODIPine BESYLATE 5 MG TABLET (FP) ONE (19:09)
[2018-12-12 19:10] LABS: BASO % 1.1 % (0-2.0); EOS % 1.5 % (0-4.5); HEMATOCRIT 32.7 % (32.4-45.2); HEMOGLOBIN 10.5 GM/dL (10.7-15.3); LYMPH % 10.7 % (8-40); MCH 25.7 pg (25.7-33.7); MEAN CELL VOLUME 80.3 fl (80-96); MEAN PLT VOLUME 7.1 fl (7.5-11.1); MONO % 6.7 % (3.8-10.2); PLATELET COUNT 169 K/MM3 (134-434); RBC 4.08 M/mm3 (3.60-5.2); RDW 20.6 % (11.6-15.6); WHITE BLOOD COUNT 4.3 K/mm3 (4.0-10.0)
--- NOTE | 2018-12-12 19:19 | PDOC ---
*Physical Exam - Vital Signs Last Vital Signs Temp Pulse Resp BP Pulse Ox 74 16 110/90 100 12/12/18 15:33 12/12/18 15:33 12/12/18 15:33 12/12/18 15:33 ED Treatment Course - LABORATORY CBC & Chemistry Diagram: 12/13/18 06:45 12/13/18 06:45 - ADDITIONAL ORDERS Additional order review: Laboratory Results 12/12/18 19:00 B-Natriuretic Peptide Cancelled - Medications Given in the ED: ED Medications Discontinued Medications Generic Name Dose Route Start Last Admin Trade Name Obinna PRN Reason Stop Dose Admin Amlodipine Besylate 5 mg 12/12/18 19:02 12/12/18 19:11 Norvasc - PO 12/12/18 19:03 5 mg ONCE ONE Administration Medical Decision Making - Medical Decision Making 12/12/18 19:[address] Barrios. Will f/u labs, EKG, CXR. 12/12/18 19:36 Hgb 10.5, however Cr 2. Normally 1. Patient with KACI. 12/12/18 19:40 Trop is 0.13. Will f/u EKG. Patient will be admitted. Giving aspirin 325mg. 12/12/18 19:44 BNP [id number]. 12/12/18 19:54 CXR appears to show fluid overload. Will give 40mg IV Lasix. 12/12/18 19:59 EKG 71 bpm, T wave inversion in I, AVL, V6. Lateral distribution, old EKG without these T wave inversions. Discharge - Discharge Information Problems reviewed: Yes Clinical Impression/Diagnosis: Lower extremity edema, Chest discomfort Condition: Guarded - Follow up/Referral - Patient Discharge Instructions - Post Discharge Activity
[2018-12-12 19:33] LABS: ALBUMIN 2.6 g/dl (3.4-5.0); BILIRUBIN,TOTAL 0.4 mg/dL (0.2-1); BLOOD UREA NITROGEN 45.2 mg/dL (7-18); POTASSIUM 4.6 mmol/L (3.5-5.1); TOT PROT 6.3 g/dl (6.4-8.2)
--- NOTE | 2018-12-12 19:47 | PDOC ---
Documentation entered by Jesus De León SCRIBE, acting as scribe for Fany Bailey MD. Fany Bailey MD: This documentation has been prepared by the Genet bonilla Xhesika, SCRIBE, under my direction and personally reviewed by me in its entirety. I confirm that the documentation accurately reflects all work, treatment, procedures, and medical decision making performed by me. Attending Attestation - Resident Resident Name: DenisAllen - ED Attending Attestation I have performed the following: I have examined & evaluated the patient, The case was reviewed & discussed with the resident, I agree w/resident's findings & plan, Exceptions are as noted - HPI HPI: 12/12/18 17:59 The patient is a 63 year old female, with a significant PMH of CHF, IDDM (not compliant with meds) and HTN, and high cholesterol who presents to the ED today complaining of 3 weeks of b/l lower extremity swelling and intermittent numbness to all 4 extremities. Patient notes she is unable to lift her legs due to the swelling in her legs and endorses associated dyspnea on exertion, generalized weakness and chest discomfort. Patient notes she has been going through family related stressors (her is severely sick and admitted at [facility]), so she has not been compliant with any of her medication for the past few months. She reports today, she had an episode of generalized weakness with chest tightness lasting for 5 mins prompting her to come to the ED. The patient denies SOB, dizziness. No recent immobility or surgery. Denies fever , chills, nausea, vomiting, diarrhea and constipation. Denies dysuria, frequency , urgency and hematuria. Allergies: NKA PCP: Dr. Naidu - Physicial Exam PE: 12/12/18 18:01 GENERAL: Awake, alert, and fully oriented, in no acute distress EYES: PERRLA, EOMI, sclera anicteric, conjunctiva clear ENT: Oropharynx clear without exudates. Moist mucosa NECK: Normal ROM, supple, no lymphadenopathy, JVD, or masses LUNGS: Breath sounds equal, clear to auscultation bilaterally. No wheezes, and no crackles HEART: Regular rate and rhythm, normal S1 and S2, no murmurs, rubs or gallops ABDOMEN: Soft, nontender, normoactive bowel sounds. No guarding, no rebound. No masses EXTREMITIES: Normal range of motion, 2+ LE edema symmetric to knees. No clubbing or cyanosis. No cords, erythema, or tenderness NEUROLOGICAL: Normal speech, cranial nerves intact, 5/5 strength in all 4 extremities, normal sensation to light touch in all 4 extremities, normal cerebellar exam, normal gait, normal tone SKIN: Warm, Dry, normal turgor, no rashes or lesions noted. - Medical Decision Making 12/12/18 19:46 63yo F with MMP including DM, HTN, HL, CHF, presents to the ED wth generalized weakness, chest tightness, LE edema. Patient has not taken any of her medications in months. Plan to check labs, EKG, chest x-ray and anticipate admission in the setting of chest tightness, medication noncompliance, and multiple comorbidities. 12/12/18 20:41 BNP elevated, CXR with congestion, ordered lasix 40mg IV trop + to 0.13. EKG with new TWI laterally. No ALVIN. Likely demand 2/2 CHF Pt admitted to Dr. Pitts Case discussed in detail with admitting physician including history, physical exam and ancillary studies. Admitting physician has assumed care for the patient, will follow all pending diagnostics and will complete the evaluation and treatment. Heart Score/ECG Review #1 12/12/18 20:42 My EKG normal sinus rhythm, rate 71. Normal axis and intervals. No ST elevations. T wave inversions in 1, aVL, and V6. When compared to previous EKG , T wave inversions in lateral distribution are new.
[2018-12-12] MEDS ORDERED: ASPIRIN 325 MG TABLET PO ONE (19:48)
[2018-12-12] MEDS ORDERED: ASPIRIN COATED 81 MG TABLET.EC ONE (19:54)
[2018-12-12] MEDS ORDERED: FUROSEMIDE 40 MG/4 ML INJECTABLE VIAL IVPUSH ONE (20:00)
[2018-12-12 20:14] LABS: ANISOCYTOSIS 2+
[2018-12-12] MEDS ORDERED: FUROSEMIDE 40 MG/4 ML INJECTABLE VIAL ONE (21:10)
[2018-12-12 21:29] LABS: EPI CELLS 2.9 /HPF (0-5/HPF); HYALINE CASTS 5 /lpf (0-8); URINE APPEARANCE CLEAR; URINE BACTERIA 2.9 /hpf (NEGATIVE); URINE BILIRUBIN NEGATIVE (NEGATIVE); URINE COLOR YELLOW; URINE GLUCOSE (UA) 1+ (NEGATIVE); URINE KETONE NEGATIVE (NEGATIVE); URINE LEUK ESTERASE NEGATIVE (NEGATIVE); URINE NITRITE NEGATIVE (NEGATIVE); URINE PROTEIN 3+ (NEGATIVE); URINE RBC 12 /hpf (0-4); URINE UROBILINOGEN 0.2 mg/dL (0.2-1.0); URINE WBC 2 /hpf (0-5)
[2018-12-12] MEDS ORDERED: INSULIN (LEVEMIR) 100 UNITS/ML UNITS SQ SCH (22:00)
--- NOTE | 2018-12-12 23:04 | HP ---
<France Fonseca - Last Filed: 12/13/18 01:21> CHIEF COMPLAINT: Chest pain and b/l leg numbness PCP: Dr Naidu HISTORY OF PRESENT ILLNESS: 63 y/o female with PMH of CHF, IDDM, HLD, IBS who came into the ED because of b/ l leg numbness and chest pain. Pt described the pain as a tightness in the middle of her chest that is non radiating, intermittent and associated with dizziness. Drinking water made the pain better and exertion made it worse. 5/10 in severity. Pt denies any shortness of breath and endorsed being non compliant to her medications for a month and a half or so due to being sick and hospitalized. Pt measured her BP at home and remembers the systolic pressure being in the 195 and since treatment in the ED her BP has been improving and that she feels much better. She also denies any headaches, vision changes except for her chronic cataract and "edema behind her eyes", palpitations, urine or BM changes. Pt did endorsed some recent weight gain which may be secondary to water retention from her not taking her meds. Pt says she doesnt feel sad but does feel upset that she let herself go> She also endosed insomnia with a total amount of about 4-5 hours a day. She doesnt feel like she has a low mood. She again does endorse weight gain but attributes it to her non complaince to medications. ER course was notable for: (1)BNP elevated, CXR with congestion, ordered lasix 40mg IV trop + to 0.13. EKG with new TWI laterally. No ALVIN. Likely demand 2/2 CHF Recent Travel: none PAST MEDICAL HISTORY: as noted above PAST SURGICAL HISTORY:none Family History: none Social History: Smoking:denies Alcohol:denies Drugs: denies Allergies No Known Allergies Allergy (Verified 12/12/18 16:07) HOME MEDICATIONS: Home Medications Medication Instructions Recorded Amlodipine Besylate [Norvasc -] 5 mg PO DAILY tablet 06/22/15 Insulin (Levemir) [Levemir Vial] 12 units SQ HS ml 06/22/15 Insulin (Levemir) [Levemir Vial] 15 units SQ AM ml 06/22/15 Multivitamins [Multivit ([facility] 1 tab PO DAILY tab 06/22/15 Formulary)] Valsartan [Diovan] 80 mg PO DAILY tablet 06/22/15 Metformin HCl ER 750 mg PO BID 08/16/15 Ammonium Lactate Cream [Lac-Hydrin 1 applic TP DAILY #1 tube 04/10/16 12% Cream -] Ferrous Sulfate [Feosol] 325 mg PO DAILY #30 ud 03/05/18 Furosemide [Lasix -] 40 mg PO BID@0600,1400 #60 tablet 03/05/18 Hydrocortisone 1% Ointment [Hytone 1 applic TP DAILY #1 tube 03/05/18 1% Ointment -] Pantoprazole Sodium [Protonix -] 40 mg PO BID #60 tablet.ec 03/05/18 Polyethylene Glycol 3350 [Miralax 17 gm PO TID #2 bottle 03/05/18 119 gm Btl -] Sitagliptin Phosphate [Januvia -] 100 mg PO DAILY@0700 #30 ud 03/05/18 metFORMIN XR [Glucophage Xr -] 750 mg PO DAILY@0700 #30 tab.sr.24h 03/05/18 REVIEW OF SYSTEMS CONSTITUTIONAL: generalized weakness,weight change Absent: fever, chills, diaphoresis, malaise, loss of appetite, HEENT: Absent: rhinorrhea, nasal congestion, throat pain, throat swelling, difficulty swallowing, mouth swelling, ear pain, eye pain, visual changes CARDIOVASCULAR: chest pain, peripheral edema Absent: syncope, palpitations, irregular heart rate RESPIRATORY: Absent: cough, shortness of breath, dyspnea with exertion, orthopnea, wheezing, stridor, hemoptysis GASTROINTESTINAL: Absent: abdominal pain, abdominal distension, nausea, vomiting, diarrhea, constipation, melena, hematochezia GENITOURINARY: Absent: dysuria, frequency, urgency, hesitancy, hematuria, flank pain, genital pain MUSCULOSKELETAL: Absent: myalgia, arthralgia, joint swelling, back pain, neck pain SKIN: Absent: rash, itching, pallor HEMATOLOGIC/IMMUNOLOGIC: Absent: easy bleeding, easy bruising, lymphadenopathy, frequent infections ENDOCRINE: Absent: unexplained weight gain, unexplained weight loss, heat intolerance, cold intolerance NEUROLOGIC: dizziness Absent: headache, focal weakness or paresthesias , unsteady gait, seizure, mental status changes, bladder or bowel incontinence PSYCHIATRIC: Absent: anxiety, depression, suicidal or homicidal ideation, hallucinations. PHYSICAL EXAMINATION Vital Signs - 24 hr 12/12/18 15:33 Pulse Rate 74 Respiratory 16 Rate Blood Pressure 110/90 O2 Sat by Pulse 100 Oximetry (%) GENERAL: Awake, alert, and fully oriented, in no acute distress. HEAD: Normal with no signs of trauma. EYES: Pupils equal, round and reactive to light, extraocular movements intact, sclera anicteric, conjunctiva clear. No lid lag. EARS, NOSE, THROAT: oropharynx clear without exudates. Moist mucous membranes. NECK: Normal range of motion, supple without lymphadenopathy, JVD, or masses. LUNGS: Breath sounds equal, clear to auscultation bilaterally. No wheezes, and no crackles. No accessory muscle use. HEART: Regular rate and rhythm, normal S1 and S2 without murmur, rub or gallop. ABDOMEN: Soft, nontender, not distended, normoactive bowel sounds, no guarding, no rebound, no masses. No hepatomegaly or splenomegaly. MUSCULOSKELETAL: Normal range of motion at all joints. No bony deformities or tenderness. No CVA tenderness. UPPER EXTREMITIES: 2+ pulses, warm, well-perfused. No cyanosis. No clubbing. No peripheral edema. LOWER EXTREMITIES: 2+ pulses, warm, well-perfused. No calf tenderness. 3+ edema. NEUROLOGICAL: Cranial nerves II-XII intact. Normal speech. gait not observed. motor strength 5/5 and sensation intact PSYCHIATRIC: Cooperative. Good eye contact. Appropriate mood and affect. SKIN: Warm, dry, normal turgor, dark lesion in mid back with darker edges than the center, normal capillary refill. Laboratory Results - last 24 hr 12/12/18 12/12/18 12/12/18 19:00 19:00 19:00 WBC 4.3 RBC 4.08 Hgb 10.5 L Hct 32.7 MCV 80.3 MCH 25.7 MCHC 32.0 RDW 20.6 H Plt Count 169 D MPV 7.1 L Absolute Neuts (auto) 3.4 Neutrophils % 80.0 Lymphocytes % 10.7 D Monocytes % 6.7 Eosinophils % 1.5 Basophils % 1.1 Nucleated RBC % 0 Hypochromia 1+ Anisocytosis 2+ Sodium 138 Potassium 4.6 Chloride 109 H Carbon Dioxide 21 Anion Gap 8 BUN 45.2 H Creatinine 2.0 H Est GFR (CKD-EPI)AfAm 30.25 Est GFR (CKD-EPI)NonAf 26.10 Random Glucose 79 Calcium 9.0 Total Bilirubin 0.4 AST 33 ALT 22 Alkaline Phosphatase 95 Creatine Kinase 580 H Creatine Kinase Index 5.9 H CK-MB (CK-2) 34.6 H Troponin I 0.13 H B-Natriuretic Peptide Total Protein 6.3 L Albumin 2.6 L TSH Urine Color Urine Appearance Urine pH Ur Specific [place] Urine Protein Urine Glucose (UA) Urine Ketones Urine Blood Urine Nitrite Urine Bilirubin Urine Urobilinogen Ur Leukocyte Esterase Urine WBC (Auto) Urine RBC (Auto) Urine Casts (Auto) U Epithel Cells (Auto) Urine Bacteria (Auto) Blood Type Antibody Screen 12/12/18 12/12/18 12/12/18 19:00 19:00 19:00 WBC RBC Hgb Hct MCV MCH MCHC RDW Plt Count MPV Absolute Neuts (auto) Neutrophils % Lymphocytes % Monocytes % Eosinophils % Basophils % Nucleated RBC % Hypochromia Anisocytosis Sodium Potassium Chloride Carbon Dioxide Anion Gap BUN Creatinine Est GFR (CKD-EPI)AfAm Est GFR (CKD-EPI)NonAf Random Glucose Calcium Total Bilirubin AST ALT Alkaline Phosphatase Creatine Kinase Creatine Kinase Index CK-MB (CK-2) Troponin I B-Natriuretic Peptide Cancelled 49272.0 H Total Protein Albumin TSH 1.93 Urine Color Urine Appearance Urine pH Ur Specific [place] Urine Protein Urine Glucose (UA) Urine Ketones Urine Blood Urine Nitrite Urine Bilirubin Urine Urobilinogen Ur Leukocyte Esterase Urine WBC (Auto) Urine RBC (Auto) Urine Casts (Auto) U Epithel Cells (Auto) Urine Bacteria (Auto) Blood Type B POSITIVE Antibody Screen Negative 12/12/18 12/12/18 20:55 21:25 WBC RBC Hgb Hct MCV MCH MCHC RDW Plt Count MPV Absolute Neuts (auto) Neutrophils % Lymphocytes % Monocytes % Eosinophils % Basophils % Nucleated RBC % Hypochromia Anisocytosis Sodium Potassium Chloride Carbon Dioxide Anion Gap BUN Creatinine Est GFR (CKD-EPI)AfAm Est GFR (CKD-EPI)NonAf Random Glucose Calcium Total Bilirubin AST ALT Alkaline Phosphatase Creatine Kinase Creatine Kinase Index CK-MB (CK-2) Troponin I 0.13 H B-Natriuretic Peptide Total Protein Albumin TSH Urine Color Yellow Urine Appearance Clear Urine pH 5.0 D Ur Specific [place] 1.013 Urine Protein 3+ H Urine Glucose (UA) 1+ H Urine Ketones Negative Urine Blood 2+ H Urine Nitrite Negative Urine Bilirubin Negative Urine Urobilinogen 0.2 Ur Leukocyte Esterase Negative Urine WBC (Auto) 2 Urine RBC (Auto) 12 Urine Casts (Auto) 5 U Epithel Cells (Auto) 2.9 Urine Bacteria (Auto) 2.9 Blood Type Antibody Screen ASSESSMENT/PLAN: 63 y/o female with PMH of CHF, IDDM, HLD, IBS who came into the ED because of b/ l leg numbness and chest pain Acute CHF exacerbation 2/2 non compliance BNP [id number] CXR positive for congestion IV lasix 40mg BID echo ordered Dr Damico consulted Dr Vilchis consulted for sleep apnea screening Valsartan held due to KACI and potassium of 4.6 sodium controlled diet Elevated troponin most likely demand from CHF exacerbation trop 0.13 x2 EKG with new T Wave Inversion laterally. No ST changes monitor chest pain. KACI 2/2 hypoperfusion or worsening kidney disease Bun 45.2 Cr 2 holding Valsartan for now. started norvasc 5 mg PO daily renal U/S consistent with Chronic kidney Disease Nephro Dr Story consulted Urine creatine, sodium and urea nitrogen ordered cont ferrous sulfate IDDM BGM Levemir 12 units FEN sodium controlled diet No standing fluids due to risk of overloading DVT PPX hep sub Q Visit type - Emergency Visit Emergency Visit: Yes ED Registration Date: 12/12/18 Care time: The patient presented to the Emergency Department on the above date and was hospitalized for further evaluation of their emergent condition. - New Patient This patient is new to me today: Yes Date on this admission: 12/13/18 - Critical Care Critical Care patient: No ATTENDING PHYSICIAN STATEMENT I saw and evaluated the patient. I reviewed the resident's note and discussed the case with the resident. I agree with the resident's findings and plan as documented. SUBJECTIVE: OBJECTIVE: ASSESSMENT AND PLAN: <Cornelius Pitts - Last Filed: 12/20/18 10:49> Seen and examined; independently verified all diagnostic information as well as historical and exam findings as outlined in the resdient note. I agree with their above documentation aside from as is supplemented by myself below. 10 sys ROS done and negative aside from HPI VS, labs, imaging reviewed NAD, AAO, resting in bed RRR s1/2 no mgr NT ND +BS CN2-12 wnl, no fnd Normal mood, appropriate behavior Agree with resdient a/p as documented chf type 2 nstemi kaci iddm obesity htn hld ibs Full Code ATTENDING PHYSICIAN STATEMENT I saw and evaluated the patient. I reviewed the resident's note and discussed the case with the resident. I agree with the resident's findings and plan as documented. SUBJECTIVE: OBJECTIVE: ASSESSMENT AND PLAN:
[2018-12-12] MEDS ORDERED: HEPARIN NA (PORCINE) 5,000 UNITS/ML 1ML VIAL ONE (23:27)
[2018-12-12] MEDS: HEPARIN NA (PORCINE) 5,000 UNITS/ML 1ML VIAL SQ SCH (23:34)
[2018-12-13] MEDS ORDERED: HEPARIN NA (PORCINE) 5,000 UNITS/ML 1ML VIAL ONE ×3 (06:13→22:16)
[2018-12-13] MEDS ORDERED: FUROSEMIDE 40 MG/4 ML INJECTABLE VIAL ONE ×2 (06:13→17:25)
[2018-12-13] MEDS: FUROSEMIDE 40 MG/4 ML INJECTABLE VIAL IVPUSH SCH ×2 (06:28→17:30)
[2018-12-13] MEDS: HEPARIN NA (PORCINE) 5,000 UNITS/ML 1ML VIAL SQ SCH ×3 (06:28→22:30)
[2018-12-13 07:44] LABS: HEMATOCRIT 30.4 % (32.4-45.2); HEMOGLOBIN 9.9 GM/dL (10.7-15.3); MCH 26.3 pg (25.7-33.7); MCHC 32.7 g/dl (32.0-36.0); MEAN CELL VOLUME 80.4 fl (80-96); MEAN PLT VOLUME 7.5 fl (7.5-11.1); PLATELET COUNT 162 K/MM3 (134-434); RBC 3.78 M/mm3 (3.60-5.2); RDW 20.7 % (11.6-15.6); WHITE BLOOD COUNT 6.7 K/mm3 (4.0-10.0)
[2018-12-13 08:18] LABS: BLOOD UREA NITROGEN 44.9 mg/dL (7-18); CALCIUM 8.8 mg/dL (8.5-10.1); CREATININE 2.1 mg/dL (0.55-1.3); MAGNESIUM 2.4 mg/dL (1.8-2.4); POTASSIUM 4.3 mmol/L (3.5-5.1)
--- NOTE | 2018-12-13 08:50 | PN ---
Progress Note, Physician Chief Complaint: AWAKE ALERT SEEN IN E.R. DENIES CP OR SOB ADMITS TO NOT TAKING HER MEDICATIONS AND MISSING HER F/U APPOINTMENTS - Current Medication List Current Medications: Active Medications Amlodipine Besylate (Norvasc -) 5 mg PO DAILY [facility] Ferrous Sulfate (Feosol -) 325 mg PO DAILY [facility] Furosemide (Lasix Injection -) 40 mg IVPUSH BID@0600,1400 [facility] Last Admin: 12/13/18 06:28 Dose: 40 mg Heparin Sodium (Porcine) (Heparin -) 5,000 unit SQ TID [facility] Last Admin: 12/13/18 06:28 Dose: 5,000 unit Insulin Detemir (Levemir Vial) 12 units SQ HS [facility] Last Admin: 12/12/18 23:41 Dose: Not Given - Objective Vital Signs: Vital Signs Temperature Pulse Rate 70 12/13/18 06:19 Respiratory Rate 17 12/13/18 06:19 Blood Pressure 148/72 12/13/18 06:19 O2 Sat by Pulse Oximetry (%) 96 12/13/18 06:19 Constitutional: Yes: Mild Distress Cardiovascular: Yes: Regular Rate and Rhythm Respiratory: Yes: WNL Gastrointestinal: Yes: WNL Genitourinary: Yes: WNL Musculoskeletal: Yes: Muscle Weakness Edema: No Peripheral Pulses WNL: Yes Integumentary: Yes: WNL Wound/Incision: Yes: Clean/Dry Neurological: Yes: Dysarthria, Numbness, Paresthesia, Pre-Existing Deficit ...Motor Strength: LLE, RLE Psychiatric: Yes: Other Labs: CBC, BMP 12/13/18 06:45 12/13/18 06:45 Problem List - Problems (2) Diabetic retinopathy associated with type 2 diabetes mellitus Code(s): E11.319 - TYPE 2 DIABETES W UNSP DIABETIC RTNOP W/O MACULAR EDEMA (3) Chest discomfort Code(s): R07.89 - OTHER CHEST PAIN (4) Acute on chronic congestive heart failure Code(s): I50.9 - HEART FAILURE, UNSPECIFIED Qualifiers: Heart failure type: systolic Qualified Code(s): I50.23 - Acute on chronic systolic (congestive) heart failure (5) Azotemia Code(s): R79.89 - OTHER SPECIFIED ABNORMAL FINDINGS OF BLOOD CHEMISTRY (6) HTN (hypertension) Code(s): I10 - ESSENTIAL (PRIMARY) HYPERTENSION (7) Noncompliance of patient with dietary regimen Code(s): Z91.11 - PATIENT'S NONCOMPLIANCE WITH DIETARY REGIMEN (8) Type 2 diabetes mellitus with other circulatory complications Code(s): E11.59 - TYPE 2 DIABETES MELLITUS WITH OTH CIRCULATORY COMPLICATIONS Assessment/Plan CARDIAC WORKUP IN PROGRESS RENAL DISEASE WORSENING, NEPHROLOGY CONSULT NON-COMPLIANT TO MEDICATIONS AND APPOINTMENTS PATIENT AGREES TO START EATING A DIABETIC DIET AND FOLLOW UP IN MY OFFICE. DVT PROPHYLAXIS BGM CHECK/A1C CHECK SSI
[2018-12-13] MEDS ORDERED: FERROUS SO4 325 MG TABLET (FP) ONE (10:11)
[2018-12-13] MEDS: amLODIPine BESYLATE 5 MG TABLET (FP) PO SCH (10:26)
[2018-12-13] MEDS: FERROUS SO4 325 MG TABLET (FP) PO SCH (10:26)
--- NOTE | 2018-12-13 10:32 | CON.CARD ---
Consult Consult Specialty:: Cardiology Referred by:: Evangelista Reason for Consultation:: nstemi - History of Present Illness Chief Complaint: sob History of Present Illness: 63 y/o female with past medical history IDDM and HTN, chf with EF 45% diagnosed in 2018. She presents to the ER with b/l leg numbness and chest pain. Pt described the pain as a tightness in the middle of her chest that is non radiating, intermittent and associated with dizziness. Drinking water made the pain better and exertion made it worse. 5/10 in severity. Pt denies any shortness of breath and endorsed being non compliant to her medications for a month and a half or so due to being sick and hospitalized. Echocardiogram 02/28/18 EF 45% lateral wall hypokinesis, mild to moderate MR. ER course was notable for: (1)BNP elevated, CXR with congestion, ordered lasix 40mg IV trop + to 0.13. EKG with new TWI laterally. No ALVIN. Likely demand 2/2 CHF new creatinine 2.1 and anemia. - History Source History Provided By: Patient, Medical Record - Past Medical History Cardio/Vascular: Yes: HTN Endocrine: Yes: Diabetes Mellitus (DM II) - Past Surgical History Past Surgical History: Yes: None, Tonsillectomy - Alcohol/Substance Use Hx Alcohol Use: No History of Substance Use: reports: None - Smoking History Smoking history: Never smoked Have you smoked in the past 12 months: No - Social History Usual Living Arrangement: With Spouse ADL: Independent Occupation: Unemployed History of Recent Travel: No Home Medications - Allergies Allergies/Adverse Reactions: Allergies Allergy/AdvReac Type Severity Reaction Status Date / Time No Known Allergies Allergy Verified 12/12/18 16:07 - Home Medications Home Medications: Ambulatory Orders Amlodipine Besylate [Norvasc -] 5 mg PO DAILY tablet 06/22/15 Insulin (Levemir) [Levemir Vial] 12 units SQ HS ml 06/22/15 Insulin (Levemir) [Levemir Vial] 15 units SQ AM ml 06/22/15 Multivitamins [Multivit ([facility] Formulary)] 1 tab PO DAILY tab 06/22/15 Valsartan [Diovan] 80 mg PO DAILY tablet 06/22/15 Metformin HCl ER 750 mg PO BID 08/16/15 Ammonium Lactate Cream [Lac-Hydrin 12% Cream -] 1 applic TP DAILY #1 tube 02/07/ 17 Ferrous Sulfate [Feosol] 325 mg PO DAILY #30 ud 03/05/18 Furosemide [Lasix -] 40 mg PO BID@0600,1400 #60 tablet 03/05/18 Hydrocortisone 1% Ointment [Hytone 1% Ointment -] 1 applic TP DAILY #1 tube 04/22 Pantoprazole Sodium [Protonix -] 40 mg PO BID #60 tablet.ec 03/05/18 Polyethylene Glycol 3350 [Miralax 119 gm Btl -] 17 gm PO TID #2 bottle 03/05/18 Sitagliptin Phosphate [Januvia -] 100 mg PO DAILY@0700 #30 ud 03/05/18 metFORMIN XR [Glucophage Xr -] 750 mg PO DAILY@0700 #30 tab.sr.24h 03/05/18 Vital Signs: Vital Signs Temperature Pulse Rate 76 12/13/18 10:26 Respiratory Rate 16 12/13/18 10:26 Blood Pressure 180/83 H 12/13/18 10:26 O2 Sat by Pulse Oximetry (%) 97 12/13/18 10:26 Constitutional: Yes: No Distress, Calm Eyes: Yes: Conjunctiva Clear, EOM Intact HENT: Yes: Atraumatic, Normocephalic Neck: Yes: Trachea Midline Respiratory: Yes: Rales (bilat bases) Gastrointestinal: Yes: Abdomen, Obese Cardiovascular: Yes: Regular Rate and Rhythm JVD: Yes Carotid Bruit: No PMI: Non-Displaced Heart Sounds: Yes: S1, S2 Murmur: Yes: Systolic Murmur, Grade 2 Extremities: Yes: WNL Edema: Yes Edema: LLE: 1+, RLE: 1+ Peripheral Pulses WNL: Yes - Other Data Labs, Other Data: CBC, BMP 12/13/18 06:45 12/13/18 06:45 Troponin, BNP 12/12/18 12/12/18 12/12/18 19:00 19:00 19:00 Troponin I 0.13 H B-Natriuretic Peptide Cancelled 54242.0 H 12/12/18 21:25 Troponin I 0.13 H B-Natriuretic Peptide Troponin, BNP 12/12/18 12/12/18 12/12/18 19:00 19:00 19:00 Troponin I 0.13 H B-Natriuretic Peptide Cancelled 58654.0 H 12/12/18 21:25 Troponin I 0.13 H B-Natriuretic Peptide Imaging - Results X-ray: Report Reviewed (chf) EKG: Report Reviewed (nsr nssttw changes) Assessment/Plan 63 y/o female with past medical history IDDM and HTN, chf with EF 45% diagnosed in 2018. She presents to the ER with b/l leg numbness and chest pain. Pt described the pain as a tightness in the middle of her chest that is non radiating, intermittent and associated with dizziness. Drinking water made the pain better and exertion made it worse. 5/10 in severity. Pt denies any shortness of breath and endorsed being non compliant to her medications for a month and a half or so due to being sick and hospitalized. Echocardiogram 02/28/18 EF 45% lateral wall hypokinesis, mild to moderate MR. ER course was notable for: (1)BNP elevated, CXR with congestion, ordered lasix 40mg IV trop + to 0.13. EKG with new TWI laterally. No ALVIN. Likely demand 2/2 CHF new creatinine 2.1 and anemia. Plan -elevated troponin is likely due to ATN. -no plans for ischemia workup at this point. -renal eval -asa -continue IV lasix. -daily wts. -echo
--- NOTE | 2018-12-13 14:58 | EKG ---
Test Reason : Blood Pressure : / mmHG Vent. Rate : 071 BPM Atrial Rate : 071 BPM P-R Int : 182 ms QRS Dur : 086 ms QT Int : 424 ms P-R-T Axes : 019 000 143 degrees QTc Int : 460 ms NORMAL SINUS RHYTHM NONSPECIFIC T WAVE ABNORMALITY ABNORMAL ECG WHEN COMPARED WITH ECG OF 26-FEB-2018 12:28, NONSPECIFIC T WAVE ABNORMALITY, WORSE IN LATERAL LEADS Confirmed by Sindi Dixon ([id number]) on 12/13/2018 2:58:21 PM Referred By: Confirmed By:Sindi Dixon
--- NOTE | 2018-12-13 15:24 | CON.PULM ---
Consult Consult Specialty:: PULM/CCM Referred by:: SHERON Reason for Consultation:: SOB - History of Present Illness Chief Complaint: SOB History of Present Illness: 63 F, CHF, IDDM, HLD, and IBS. Admitted via the ER due to bilateral LE edema and pain/tightness in the middle of her chest. The pain is not radiating and intermittent and 5/10. Associated dizziness. Reports having a SBP measurement of 195 at home. She does admit that she has not been compliant with her meds for the last month or so. No travel history or sick contacts. No night sweats or hemoptysis. She does snore but no specific history consistent with OSAS. She does report insomnia. CXR: CHF pattern. - History Source History Provided By: Patient Limitations to Obtaining History: No Limitations - Past Medical History Cardio/Vascular: Yes: HTN Pulmonary: Yes: Bronchitis. No: Asthma, Cancer, COPD, O2 Dependent, Pneumonia, Previously Intubated, Pulmonary Embolus, Pulmonary Fibrosis, Sleep Apnea Endocrine: Yes: Diabetes Mellitus (DM II) - Past Surgical History Past Surgical History: Yes: None, Tonsillectomy - Alcohol/Substance Use Hx Alcohol Use: No History of Substance Use: reports: None - Smoking History Smoking history: Never smoked Have you smoked in the past 12 months: No - Social History Usual Living Arrangement: With Spouse ADL: Independent Occupation: Unemployed History of Recent Travel: No Home Medications - Allergies Allergies/Adverse Reactions: Allergies Allergy/AdvReac Type Severity Reaction Status Date / Time No Known Allergies Allergy Verified 12/12/18 16:07 - Home Medications Home Medications: Ambulatory Orders Amlodipine Besylate [Norvasc -] 5 mg PO DAILY tablet 06/22/15 Insulin (Levemir) [Levemir Vial] 12 units SQ HS ml 06/22/15 Insulin (Levemir) [Levemir Vial] 15 units SQ AM ml 06/22/15 Multivitamins [Multivit ([facility] Formulary)] 1 tab PO DAILY tab 06/22/15 Valsartan [Diovan] 80 mg PO DAILY tablet 06/22/15 Metformin HCl ER 750 mg PO BID 08/16/15 Ammonium Lactate Cream [Lac-Hydrin 12% Cream -] 1 applic TP DAILY #1 tube Ferrous Sulfate [Feosol] 325 mg PO DAILY #30 ud 03/05/18 Furosemide [Lasix -] 40 mg PO BID@0600,1400 #60 tablet 03/05/18 Hydrocortisone 1% Ointment [Hytone 1% Ointment -] 1 applic TP DAILY #1 tube 04/22 Pantoprazole Sodium [Protonix -] 40 mg PO BID #60 tablet.ec 03/05/18 Polyethylene Glycol 3350 [Miralax 119 gm Btl -] 17 gm PO TID #2 bottle 03/05/18 Sitagliptin Phosphate [Januvia -] 100 mg PO DAILY@0700 #30 ud 03/05/18 metFORMIN XR [Glucophage Xr -] 750 mg PO DAILY@0700 #30 tab.sr.24h 03/05/18 Review of Systems - Review of Systems Constitutional: denies: Chills, Fever, Malaise, Night Sweats, Unintentional Wgt. Loss Eyes: reports: No Symptoms HENT: reports: No Symptoms Neck: reports: No Symptoms Cardiovascular: reports: Chest Pain, Edema, Shortness of Breath. denies: Palpitations Respiratory: reports: Cough, Orthopnea, PND, Snoring, SOB, SOB on Exertion. denies: Hemoptysis, Wheezing Gastrointestinal: reports: No Symptoms Genitourinary: reports: No Symptoms Breasts: reports: No Symptoms Reported Musculoskeletal: reports: No Symptoms Integumentary: reports: No Symptoms Neurological: reports: No Symptoms Endocrine: reports: No Symptoms Hematology/Lymphatic: reports: No Symptoms Psychiatric: reports: No Symptoms Physical Exam Vital Sings: Vital Signs Temperature Pulse Rate 76 12/13/18 10:26 Respiratory Rate 16 12/13/18 10:26 Blood Pressure 180/83 H 12/13/18 10:26 O2 Sat by Pulse Oximetry (%) 97 12/13/18 10:26 Constitutional: Yes: No Distress, Obese Eyes: Yes: Conjunctiva Clear, EOM Intact HENT: Yes: Atraumatic, Normocephalic Neck: Yes: Supple, Trachea Midline Cardiovascular: Yes: Regular Rate and Rhythm Respiratory: Yes: Cough, Diminished, Rales, Rhonchi, SOB, SOB on Exertion, Tachypnea. No: Accessory Muscle Use, Stridor, Wheezes ...Inspection: Yes: WNL ...Clubbing: No Gastrointestinal: Yes: Normal Bowel Sounds, Soft, Abdomen, Obese Renal/: Yes: WNL Musculoskeletal: Yes: WNL Extremities: Yes: WNL Edema: Yes Peripheral Pulses WNL: Yes Integumentary: Yes: WNL Neurological: Yes: WNL, Alert, Oriented ...Motor Strength: WNL Psychiatric: Yes: WNL, Alert, Oriented Labs: CBC, BMP 12/13/18 06:45 12/13/18 06:45 Imaging - Results Chest X-ray: Report Reviewed, Image Reviewed Problem List - Problems (1) Dyspnea Code(s): R06.00 - DYSPNEA, UNSPECIFIED (2) Chest discomfort Code(s): R07.89 - OTHER CHEST PAIN (3) Lower extremity edema Code(s): R60.0 - LOCALIZED EDEMA (4) Acute on chronic congestive heart failure Code(s): I50.9 - HEART FAILURE, UNSPECIFIED Qualifiers: Heart failure type: systolic Qualified Code(s): I50.23 - Acute on chronic systolic (congestive) heart failure (5) Anemia Code(s): D64.9 - ANEMIA, UNSPECIFIED Qualifiers: Anemia type: iron deficiency (6) CHF (congestive heart failure) Code(s): I50.9 - HEART FAILURE, UNSPECIFIED Qualifiers: Heart failure type: diastolic (7) Diabetes Code(s): E11.9 - TYPE 2 DIABETES MELLITUS WITHOUT COMPLICATIONS Qualifiers: Diabetes mellitus type: type 2 Diabetes mellitus crystal cutter insulin use: with mcc use Diabetes mellitus complication status: with unspecified complications Assessment/Plan Lasix BID O2 as needed Daily weights Monitor I & O Monitor off ABX as I do not suspect Infectious process No smoking VTE prophylaxis Will follow Thank you. Dr Mace
--- NOTE | 2018-12-13 20:21 | CONSULT ---
Consult Consult Specialty:: endocrine Referred by:: dr.ammir liz Reason for Consultation:: diabetes mellitus type 2 - History of Present Illness Chief Complaint: chest discomfort History of Present Illness: 63 y/o female with PMH of DM T2, HLD, IBS presented with high sugar and chest pain. Pt described the pain as a tightness in the middle of her chest that is non radiating, intermittent and associated with light headed feeling.has numbness in feet and hands,denies,nausea or vomiting.she does not remember taking medication.she has had stress last several months with family member sick and not compliant with medication. - Past Medical History Cardio/Vascular: Yes: HTN Pulmonary: Yes: Bronchitis. No: Asthma, Cancer, COPD, O2 Dependent, Pneumonia, Previously Intubated, Pulmonary Embolus, Pulmonary Fibrosis, Sleep Apnea Endocrine: Yes: Diabetes Mellitus (DM II) - Past Surgical History Past Surgical History: Yes: None, Tonsillectomy - Alcohol/Substance Use Hx Alcohol Use: No History of Substance Use: reports: None - Smoking History Smoking history: Never smoked Have you smoked in the past 12 months: No - Social History Usual Living Arrangement: With Spouse ADL: Independent Occupation: Unemployed History of Recent Travel: No Home Medications - Allergies Allergies/Adverse Reactions: Allergies Allergy/AdvReac Type Severity Reaction Status Date / Time No Known Allergies Allergy Verified 12/12/18 16:07 - Home Medications Home Medications: Ambulatory Orders Amlodipine Besylate [Norvasc -] 5 mg PO DAILY tablet 06/22/15 Insulin (Levemir) [Levemir Vial] 12 units SQ HS ml 06/22/15 Insulin (Levemir) [Levemir Vial] 15 units SQ AM ml 06/22/15 Multivitamins [Multivit ([facility] Formulary)] 1 tab PO DAILY tab 06/22/15 Valsartan [Diovan] 80 mg PO DAILY tablet 06/22/15 Metformin HCl ER 750 mg PO BID 08/16/15 Ammonium Lactate Cream [Lac-Hydrin 12% Cream -] 1 applic TP DAILY #1 tube Ferrous Sulfate [Feosol] 325 mg PO DAILY #30 ud 03/05/18 Furosemide [Lasix -] 40 mg PO BID@0600,1400 #60 tablet 03/05/18 Hydrocortisone 1% Ointment [Hytone 1% Ointment -] 1 applic TP DAILY #1 tube 04/22 Pantoprazole Sodium [Protonix -] 40 mg PO BID #60 tablet.ec 03/05/18 Polyethylene Glycol 3350 [Miralax 119 gm Btl -] 17 gm PO TID #2 bottle 03/05/18 Sitagliptin Phosphate [Januvia -] 100 mg PO DAILY@0700 #30 ud 03/05/18 metFORMIN XR [Glucophage Xr -] 750 mg PO DAILY@0700 #30 tab.sr.24h 03/05/18 Review of Systems - Review of Systems Constitutional: reports: Lethargy, Weakness Eyes: reports: Blurred Vision HENT: reports: No Symptoms Neck: reports: No Symptoms Cardiovascular: reports: Shortness of Breath Respiratory: reports: Exercise Intolerance, SOB on Exertion Gastrointestinal: reports: Abdominal Pain Genitourinary: reports: Frequency Musculoskeletal: reports: Muscle Weakness Neurological: reports: Numbness, Weakness Endocrine: reports: Unexplained Weight Gain Physical Exam Vital Signs: Vital Signs Temperature 97.2 F L 12/13/18 18:10 Pulse Rate 74 12/13/18 19:20 Respiratory Rate 17 12/13/18 19:20 Blood Pressure 172/75 H 12/13/18 19:20 O2 Sat by Pulse Oximetry (%) 98 12/13/18 19:20 Constitutional: Yes: Anxious Eyes: Yes: EOM Intact HENT: Yes: Normocephalic Neck: Yes: Trachea Midline Cardiovascular: Yes: Regular Rate and Rhythm Respiratory: Yes: CTA Bilaterally Gastrointestinal: Yes: Normal Bowel Sounds ...Rectal Exam: Yes: Deferred Renal/: Yes: WNL Breast(s): Yes: WNL Musculoskeletal: Yes: Joint Swelling, Muscle Pain, Muscle Weakness Extremities: Yes: WNL Edema: No Neurological: Yes: Alert, Numbness, Tingling, Weakness Labs: CBC, BMP 12/13/18 06:45 12/13/18 06:45 Problem List - Problems (1) Chest discomfort Code(s): R07.89 - OTHER CHEST PAIN (2) Diabetic nephropathy Qualifiers: Qualified Code(s): E11.21 - Type 2 diabetes mellitus with diabetic nephropathy (3) Diabetic retinopathy associated with type 2 diabetes mellitus (4) Dyspnea Code(s): R06.00 - DYSPNEA, UNSPECIFIED (5) Lower extremity edema Code(s): R60.0 - LOCALIZED EDEMA (6) Acute on chronic congestive heart failure Code(s): I50.9 - HEART FAILURE, UNSPECIFIED Qualifiers: Heart failure type: systolic Qualified Code(s): I50.23 - Acute on chronic systolic (congestive) heart failure Assessment/Plan Current Active Problems htn uncontrlled Chest discomfort (Acute) Diabetic nephropathy (Acute) Diabetic retinopathy associated with type 2 diabetes mellitus (Acute) Dyspnea (Acute) Lower extremity edema (Acute) Abnormal Lab Results 12/12/18 12/12/18 12/13/18 20:55 21:25 02:00 Hgb Hct RDW Chloride Carbon Dioxide BUN Creatinine Hemoglobin A1c % Troponin I 0.13 H Urine Protein 3+ H Urine Glucose (UA) 1+ H Urine Blood 2+ H Ur Random Sodium 30 L 12/13/18 12/13/18 12/13/18 06:45 06:45 12:17 Hgb 9.9 L Hct 30.4 L RDW 20.7 H Chloride 110 H Carbon Dioxide 19 L BUN 44.9 H Creatinine 2.1 H Hemoglobin A1c % 6.6 H Troponin I Urine Protein Urine Glucose (UA) Urine Blood Ur Random Sodium 12/13/18 18:43 Hgb Hct RDW Chloride Carbon Dioxide BUN Creatinine Hemoglobin A1c % Troponin I 0.14 H Urine Protein Urine Glucose (UA) Urine Blood Ur Random Sodium Laboratory Results - last 24 hr 12/12/18 12/12/18 12/12/18 20:55 21:25 23:30 WBC RBC Hgb Hct MCV MCH MCHC RDW Plt Count MPV Sodium Potassium Chloride Carbon Dioxide Anion Gap BUN Creatinine Est GFR (CKD-EPI)AfAm Est GFR (CKD-EPI)NonAf POC Glucometer 59 Random Glucose Hemoglobin A1c % Calcium Magnesium Troponin I 0.13 H TSH Urine Color Yellow Urine Appearance Clear Urine pH 5.0 D Ur Specific [place] 1.013 Urine Protein 3+ H Urine Glucose (UA) 1+ H Urine Ketones Negative Urine Blood 2+ H Urine Nitrite Negative Urine Bilirubin Negative Urine Urobilinogen 0.2 Ur Leukocyte Esterase Negative Urine WBC (Auto) 2 Urine RBC (Auto) 12 Urine Casts (Auto) 5 U Epithel Cells (Auto) 2.9 Urine Bacteria (Auto) 2.9 Ur Random Creatinine Ur Random Sodium Ur Random Urea Nitrogn 12/13/18 12/13/18 12/13/18 02:00 02:00 02:00 WBC RBC Hgb Hct MCV MCH MCHC RDW Plt Count MPV Sodium Potassium Chloride Carbon Dioxide Anion Gap BUN Creatinine Est GFR (CKD-EPI)AfAm Est GFR (CKD-EPI)NonAf POC Glucometer Random Glucose Hemoglobin A1c % Calcium Magnesium Troponin I TSH Urine Color Urine Appearance Urine pH Ur Specific [place] Urine Protein Urine Glucose (UA) Urine Ketones Urine Blood Urine Nitrite Urine Bilirubin Urine Urobilinogen Ur Leukocyte Esterase Urine WBC (Auto) Urine RBC (Auto) Urine Casts (Auto) U Epithel Cells (Auto) Urine Bacteria (Auto) Ur Random Creatinine 39.0 Ur Random Sodium 30 L Ur Random Urea Nitrogn 379 12/13/18 12/13/18 12/13/18 06:45 06:45 09:04 WBC 6.7 RBC 3.78 Hgb 9.9 L Hct 30.4 L MCV 80.4 MCH 26.3 MCHC 32.7 RDW 20.7 H Plt Count 162 MPV 7.5 Sodium 140 Potassium 4.3 Chloride 110 H Carbon Dioxide 19 L Anion Gap 11 BUN 44.9 H Creatinine 2.1 H Est GFR (CKD-EPI)AfAm 28.51 Est GFR (CKD-EPI)NonAf 24.60 POC Glucometer 84 Random Glucose 91 Hemoglobin A1c % Calcium 8.8 Magnesium 2.4 Troponin I TSH 2.03 Urine Color Urine Appearance Urine pH Ur Specific [place] Urine Protein Urine Glucose (UA) Urine Ketones Urine Blood Urine Nitrite Urine Bilirubin Urine Urobilinogen Ur Leukocyte Esterase Urine WBC (Auto) Urine RBC (Auto) Urine Casts (Auto) U Epithel Cells (Auto) Urine Bacteria (Auto) Ur Random Creatinine Ur Random Sodium Ur Random Urea Nitrogn 12/13/18 12/13/18 12/13/18 12:17 18:43 19:20 WBC RBC Hgb Hct MCV MCH MCHC RDW Plt Count MPV Sodium Potassium Chloride Carbon Dioxide Anion Gap BUN Creatinine Est GFR (CKD-EPI)AfAm Est GFR (CKD-EPI)NonAf POC Glucometer 106 Random Glucose Hemoglobin A1c % 6.6 H Calcium Magnesium Troponin I 0.14 H TSH Urine Color Urine Appearance Urine pH Ur Specific [place] Urine Protein Urine Glucose (UA) Urine Ketones Urine Blood Urine Nitrite Urine Bilirubin Urine Urobilinogen Ur Leukocyte Esterase Urine WBC (Auto) Urine RBC (Auto) Urine Casts (Auto) U Epithel Cells (Auto) Urine Bacteria (Auto) Ur Random Creatinine Ur Random Sodium Ur Random Urea Nitrogn plan: bgm qid novolog scale nephrology consult ckd levemir dose adjustment cortisol am acth am 24hr urine vma metanephrin catecholamins
[2018-12-13] MEDS ORDERED: METOPROLOL TARTRATE 25 MG TABLET (FP) PO SCH (22:00)
[2018-12-13] MEDS ORDERED: INSULIN SLIDING SCALE (NOVOLOG) 1 VIAL SQ SCH (22:00)
[2018-12-13] MEDS ORDERED: METOPROLOL TARTRATE 25 MG TABLET (FP) ONE (22:16)
[2018-12-13] MEDS: INSULIN SLIDING SCALE (NOVOLOG) 1 VIAL SQ SCH (22:30)
--- NOTE | 2018-12-13 22:33 | CON.NEP ---
Consult Consult Specialty:: Nephrology Referred by:: dimitry Reason for Consultation:: barbara - History of Present Illness Chief Complaint: sob and leg edema History of Present Illness: 63 y/o w admitted with leg edema, high bp, "falling apart" while taking care of her who is hospitalized referred for eval of azotemia bun/creat 45/2.1 s creat was 1.0 in 2018 PMHx DM, HTN, visual problems EF 40-45% - Past Medical History Cardio/Vascular: Yes: HTN Pulmonary: Yes: Bronchitis. No: Asthma, Cancer, COPD, O2 Dependent, Pneumonia, Previously Intubated, Pulmonary Embolus, Pulmonary Fibrosis, Sleep Apnea Endocrine: Yes: Diabetes Mellitus (DM II) - Past Surgical History Past Surgical History: Yes: None, Tonsillectomy - Alcohol/Substance Use Hx Alcohol Use: No History of Substance Use: reports: None - Smoking History Smoking history: Never smoked Have you smoked in the past 12 months: No - Social History Usual Living Arrangement: With Spouse ADL: Independent Occupation: Unemployed History of Recent Travel: No Home Medications - Allergies Allergies/Adverse Reactions: Allergies Allergy/AdvReac Type Severity Reaction Status Date / Time No Known Allergies Allergy Verified 12/12/18 16:07 - Home Medications Home Medications: Ambulatory Orders Amlodipine Besylate [Norvasc -] 5 mg PO DAILY tablet 06/22/15 Insulin (Levemir) [Levemir Vial] 12 units SQ HS ml 06/22/15 Insulin (Levemir) [Levemir Vial] 15 units SQ AM ml 06/22/15 Multivitamins [Multivit ([facility] Formulary)] 1 tab PO DAILY tab 06/22/15 Valsartan [Diovan] 80 mg PO DAILY tablet 06/22/15 Metformin HCl ER 750 mg PO BID 08/16/15 Ammonium Lactate Cream [Lac-Hydrin 12% Cream -] 1 applic TP DAILY #1 tube Ferrous Sulfate [Feosol] 325 mg PO DAILY #30 ud 03/05/18 Furosemide [Lasix -] 40 mg PO BID@0600,1400 #60 tablet 03/05/18 Hydrocortisone 1% Ointment [Hytone 1% Ointment -] 1 applic TP DAILY #1 tube 04/22 Pantoprazole Sodium [Protonix -] 40 mg PO BID #60 tablet.ec 03/05/18 Polyethylene Glycol 3350 [Miralax 119 gm Btl -] 17 gm PO TID #2 bottle 03/05/18 Sitagliptin Phosphate [Januvia -] 100 mg PO DAILY@0700 #30 ud 03/05/18 metFORMIN XR [Glucophage Xr -] 750 mg PO DAILY@0700 #30 tab.sr.24h 03/05/18 Nephrology Consult - Height Height: 5 ft 1 in - Weight Weight: 175 lb - BMI Body Mass Index (BMI): 33.0 - Lab Results CBC,BMP: CBC, BMP 12/13/18 06:45 12/13/18 06:45 Anion Gap: Anion Gap Anion Gap 11 MMOL/L (8-16) 12/13/18 06:45 - Physical Examination Vital Signs: Vital Signs Temperature 97.2 F L 12/13/18 18:10 Pulse Rate 74 12/13/18 19:20 Respiratory Rate 17 12/13/18 19:20 Blood Pressure 172/75 H 12/13/18 19:20 O2 Sat by Pulse Oximetry (%) 98 12/13/18 19:20 Assessment/Plan barbara- partly 2/2 to decompensated chf urine protein and blood pos r/o glomerular inflamm sono echogenic kidneys no hydro CHF BNP very elevated underlying ckd repeat u/a
[2018-12-14 00:57] LABS: EPI CELLS 4.2 /HPF (0-5/HPF); HYALINE CASTS 2 /lpf (0-8); URINE APPEARANCE TURBID; URINE BACTERIA 194.9 /hpf (NEGATIVE); URINE BILIRUBIN NEGATIVE (NEGATIVE); URINE COLOR YELLOW; URINE GLUCOSE (UA) 1+ (NEGATIVE); URINE KETONE NEGATIVE (NEGATIVE); URINE LEUK ESTERASE TRACE (NEGATIVE); URINE NITRITE NEGATIVE (NEGATIVE); URINE PROTEIN 3+ (NEGATIVE); URINE WBC 10 /hpf (0-5)
[2018-12-14 01:17] LABS: URINE RBC 188.1 /hpf (0-4)
[2018-12-14] MEDS ORDERED: FUROSEMIDE 40 MG/4 ML INJECTABLE VIAL ONE (06:41)
[2018-12-14] MEDS ORDERED: HEPARIN NA (PORCINE) 5,000 UNITS/ML 1ML VIAL ONE (06:41)
[2018-12-14 06:49] LABS: HEMATOCRIT 30.9 % (32.4-45.2); MCHC 32.5 g/dl (32.0-36.0); MEAN PLT VOLUME 7.5 fl (7.5-11.1); PLATELET COUNT 171 K/MM3 (134-434); RBC 3.86 M/mm3 (3.60-5.2); RDW 20.9 % (11.6-15.6); WHITE BLOOD COUNT 4.1 K/mm3 (4.0-10.0)
[2018-12-14] MEDS: HEPARIN NA (PORCINE) 5,000 UNITS/ML 1ML VIAL SQ SCH ×3 (06:54→22:32)
[2018-12-14] MEDS: FUROSEMIDE 40 MG/4 ML INJECTABLE VIAL IVPUSH SCH ×2 (06:54→14:37)
[2018-12-14] MEDS ORDERED: INSULIN (LEVEMIR) 100 UNITS/ML UNITS SQ SCH (07:00)
[2018-12-14 07:20] LABS: ALBUMIN 2.4 g/dl (3.4-5.0); BILIRUBIN,TOTAL 0.4 mg/dL (0.2-1); BLOOD UREA NITROGEN 43.1 mg/dL (7-18); CALCIUM 8.8 mg/dL (8.5-10.1); CREATININE 2.4 mg/dL (0.55-1.3); POTASSIUM 4.1 mmol/L (3.5-5.1)
[2018-12-14 07:32] LABS: IRON SERUM 36 ug/dL (50-175); TOTAL IRON BINDING CAPACITY 288 ug/dL (250-450)
--- NOTE | 2018-12-14 07:35 | PN ---
Progress Note, Physician Chief Complaint: AWAKE STILL HAVING CHEST PRESSURE NO FEVER OR CHILLS BGM 84 - Current Medication List Current Medications: Active Medications Amlodipine Besylate (Norvasc -) 5 mg PO DAILY [facility] Last Admin: 12/13/18 10:26 Dose: 5 mg Ferrous Sulfate (Feosol -) 325 mg PO DAILY [facility] Last Admin: 12/13/18 10:26 Dose: 325 mg Furosemide (Lasix Injection -) 40 mg IVPUSH BID@0600,1400 [facility] Last Admin: 12/14/18 06:54 Dose: 40 mg Heparin Sodium (Porcine) (Heparin -) 5,000 unit SQ TID [facility] Last Admin: 12/14/18 06:54 Dose: 5,000 unit Insulin Aspart (Novolog Vial Sliding Scale -) 1 vial SQ ACHS [facility]; Protocol Last Admin: 12/13/18 22:30 Dose: Not Given Insulin Detemir (Levemir Vial) 12 units SQ AM [facility] Metoprolol Tartrate (Lopressor -) 25 mg PO BID [facility] Last Admin: 12/13/18 22:31 Dose: 25 mg - Objective Vital Signs: Vital Signs Temperature 97.2 F L 12/13/18 18:10 Pulse Rate 74 12/13/18 19:20 Respiratory Rate 17 12/13/18 19:20 Blood Pressure 149/72 12/13/18 22:23 O2 Sat by Pulse Oximetry (%) 98 12/13/18 19:20 Constitutional: Yes: Mild Distress Cardiovascular: Yes: Regular Rate and Rhythm Respiratory: Yes: WNL Gastrointestinal: Yes: Abdomen, Obese, Tenderness Genitourinary: Yes: WNL Musculoskeletal: Yes: WNL Edema: No Integumentary: Yes: Pressure Ulcer, Venous Stasis Changes Wound/Incision: Yes: Dressing Dry and Intact ...Motor Strength: LLE (B/L CHRONIC STASIS DERMATITIS), RLE Labs: CBC, BMP 12/14/18 06:05 Problem List - Problems (1) Diabetic nephropathy Qualifiers: Diabetes mellitus type: type 2 Qualified Code(s): E11.21 - Type 2 diabetes mellitus with diabetic nephropathy (2) Diabetic retinopathy associated with type 2 diabetes mellitus Code(s): E11.319 - TYPE 2 DIABETES W UNSP DIABETIC RTNOP W/O MACULAR EDEMA (3) Chest discomfort Code(s): R07.89 - OTHER CHEST PAIN (4) Acute on chronic congestive heart failure Code(s): I50.9 - HEART FAILURE, UNSPECIFIED Qualifiers: Heart failure type: systolic Qualified Code(s): I50.23 - Acute on chronic systolic (congestive) heart failure (5) Azotemia Code(s): R79.89 - OTHER SPECIFIED ABNORMAL FINDINGS OF BLOOD CHEMISTRY (6) HTN (hypertension) Code(s): I10 - ESSENTIAL (PRIMARY) HYPERTENSION (7) Noncompliance of patient with dietary regimen Code(s): Z91.11 - PATIENT'S NONCOMPLIANCE WITH DIETARY REGIMEN (8) Type 2 diabetes mellitus with other circulatory complications Code(s): E11.59 - TYPE 2 DIABETES MELLITUS WITH OTH CIRCULATORY COMPLICATIONS Assessment/Plan CARDIAC WORKUP IN PROGRESS REPEAT EKG NOW CARDIAC ENZYMES NOW SHOULD HAVE STRESS TEST/DISCUSS WITH DR MAHESH BOOTHE A1C 6.6% ENDOCRINE F/U RENAL DISEASE WORSENING, NEPHROLOGY CONSULT NON-COMPLIANT TO MEDICATIONS AND APPOINTMENTS PATIENT AGREES TO START EATING A DIABETIC DIET AND FOLLOW UP IN MY OFFICE. DVT PROPHYLAXIS BGM CHECK/A1C CHECK SSI
[2018-12-14] MEDS: INSULIN SLIDING SCALE (NOVOLOG) 1 VIAL SQ SCH ×4 (07:40→22:30)
[2018-12-14] MEDS ORDERED: ASPIRIN COATED 81 MG TABLET.EC ONE (09:06)
[2018-12-14] MEDS ORDERED: METOPROLOL TARTRATE 25 MG TABLET (FP) ONE (09:06)
[2018-12-14] MEDS: METOPROLOL TARTRATE 25 MG TABLET (FP) PO SCH ×3 (09:11→22:32)
[2018-12-14] MEDS: ASPIRIN COATED 81 MG TABLET.EC PO SCH (09:11)
[2018-12-14] MEDS: FERROUS SO4 325 MG TABLET (FP) PO SCH (09:11)
[2018-12-14] MEDS: amLODIPine BESYLATE 5 MG TABLET (FP) PO SCH (09:12)
--- NOTE | 2018-12-14 10:19 | PN ---
Progress Note, Physician Chief Complaint: had brief cp yesterday no ecg changes tele neg History of Present Illness: 63 y/o female with past medical history IDDM and HTN, chf with EF 45% diagnosed in 2018. She presents to the ER with b/l leg numbness and chest pain. Pt described the pain as a tightness in the middle of her chest that is non radiating, intermittent and associated with dizziness. Drinking water made the pain better and exertion made it worse. 5/10 in severity. Pt denies any shortness of breath and endorsed being non compliant to her medications for a month and a half or so due to being sick and hospitalized. Echocardiogram 02/28/18 EF 45% lateral wall hypokinesis, mild to moderate MR. ER course was notable for: (1)BNP elevated, CXR with congestion, ordered lasix 40mg IV trop + to 0.13. EKG with new TWI laterally. No ALVIN. Likely demand 2/2 CHF new creatinine 2.1 and anemia. - Current Medication List Current Medications: Active Medications Amlodipine Besylate (Norvasc -) 5 mg PO DAILY [facility] Last Admin: 12/14/18 09:12 Dose: 5 mg Aspirin (Ecotrin -) 81 mg PO DAILY [facility] Last Admin: 12/14/18 09:11 Dose: 81 mg Ferrous Sulfate (Feosol -) 325 mg PO DAILY [facility] Last Admin: 12/14/18 09:11 Dose: 325 mg Furosemide (Lasix Injection -) 40 mg IVPUSH BID@0600,1400 [facility] Last Admin: 12/14/18 06:54 Dose: 40 mg Heparin Sodium (Porcine) (Heparin -) 5,000 unit SQ TID [facility] Last Admin: 12/14/18 06:54 Dose: 5,000 unit Insulin Aspart (Novolog Vial Sliding Scale -) 1 vial SQ ACHS [facility]; Protocol Last Admin: 12/14/18 07:40 Dose: Not Given Metoprolol Tartrate (Lopressor -) 25 mg PO BID [facility] Last Admin: 12/14/18 09:11 Dose: Not Given Rosuvastatin Calcium (Crestor -) 10 mg PO HS [facility] - Objective Vital Signs: Vital Signs Temperature 97.9 F 12/14/18 07:33 Pulse Rate 54 L 12/14/18 07:33 Respiratory Rate 16 12/14/18 07:33 Blood Pressure 145/83 12/14/18 07:33 O2 Sat by Pulse Oximetry (%) 100 12/14/18 07:33 Constitutional: Yes: Well Nourished, No Distress Eyes: Yes: Conjunctiva Clear, EOM Intact HENT: Yes: Atraumatic, Normocephalic Neck: Yes: Trachea Midline Cardiovascular: Yes: Regular Rate and Rhythm Respiratory: Yes: CTA Bilaterally Gastrointestinal: Yes: Normal Bowel Sounds, Soft Extremities: Yes: WNL Edema: Yes Edema: LLE: 1+, RLE: 1+ Labs: CBC, BMP 12/14/18 06:05 12/14/18 06:05 Assessment/Plan 63 y/o female with past medical history IDDM and HTN, chf with EF 45% diagnosed in 2018. She presents to the ER with b/l leg numbness and chest pain. Pt described the pain as a tightness in the middle of her chest that is non radiating, intermittent and associated with dizziness. Drinking water made the pain better and exertion made it worse. 5/10 in severity. Pt denies any shortness of breath and endorsed being non compliant to her medications for a month and a half or so due to being sick and hospitalized. Echocardiogram 02/28/18 EF 45% lateral wall hypokinesis, mild to moderate MR. ER course was notable for: (1)BNP elevated, CXR with congestion, ordered lasix 40mg IV trop + to 0.13. EKG with new TWI laterally. No ALVIN. Likely demand 2/2 CHF new creatinine 2.1 and anemia. Plan -elevated troponin is likely due to ATN. -no plans for ischemia workup at this point. she is fluid overloaded and her renal status precludes cath at this point. would defer stress testing until stable, possibly as an outpatient. -renal eval -asa -continue IV lasix. -daily wts. -echo -add imdur 60 mg daily.
[2018-12-14] MEDS ORDERED: ISOSORBIDE MONONITRATE 60 MG TAB.SR.24H (FP) PO ONE (13:03)
[2018-12-14] MEDS: ISOSORBIDE MONONITRATE 60 MG TAB.SR.24H (FP) PO SCH (13:05)
--- NOTE | 2018-12-14 14:12 | PN ---
Progress Note (short form) - Note Progress Note: Seen in the ER. Resting in NAD. No CP or SOB. No acute events overnight. Intake & Output 12/11/18 12/12/18 12/13/18 12/14/18 23:59 23:59 23:59 23:59 Weight 175 lb 175 lb Last Vital Signs Temp Pulse Resp BP Pulse Ox 97.3 F L 64 20 157/82 98 12/14/18 11:47 12/14/18 11:47 12/14/18 11:47 12/14/18 11:47 12/14/18 11:47 Active Medications Amlodipine Besylate (Norvasc -) 5 mg PO DAILY [facility] Last Admin: 12/14/18 09:12 Dose: 5 mg Aspirin (Ecotrin -) 81 mg PO DAILY [facility] Last Admin: 12/14/18 09:11 Dose: 81 mg Ferrous Sulfate (Feosol -) 325 mg PO DAILY [facility] Last Admin: 12/14/18 09:11 Dose: 325 mg Furosemide (Lasix Injection -) 40 mg IVPUSH BID@0600,1400 [facility] Last Admin: 12/14/18 06:54 Dose: 40 mg Heparin Sodium (Porcine) (Heparin -) 5,000 unit SQ TID [facility] Last Admin: 12/14/18 06:54 Dose: 5,000 unit Insulin Aspart (Novolog Vial Sliding Scale -) 1 vial SQ ACHS [facility]; Protocol Last Admin: 12/14/18 11:50 Dose: Not Given Isosorbide Mononitrate (Imdur -) 60 mg PO DAILY [facility] Last Admin: 12/14/18 13:05 Dose: 60 mg Metoprolol Tartrate (Lopressor -) 25 mg PO BID [facility] Last Admin: 12/14/18 11:25 Dose: Not Given Rosuvastatin Calcium (Crestor -) 10 mg PO [facility] Constitutional: Yes: No Distress, Obese Eyes: Yes: Conjunctiva Clear, EOM Intact HENT: Yes: Atraumatic, Normocephalic Neck: Yes: Supple, Trachea Midline Cardiovascular: Yes: Regular Rate and Rhythm Respiratory: Yes: Cough, Diminished, Rales, Rhonchi. No: Accessory Muscle Use, Stridor, Wheezes ...Inspection: Yes: WNL ...Clubbing: No Gastrointestinal: Yes: Normal Bowel Sounds, Soft, Abdomen, Obese Renal/: Yes: WNL Musculoskeletal: Yes: WNL Extremities: Yes: WNL Edema: Yes Peripheral Pulses WNL: Yes Integumentary: Yes: WNL Neurological: Yes: WNL, Alert, Oriented ...Motor Strength: WNL Psychiatric: Yes: WNL, Alert, Oriented Labs: Laboratory Results - last 24 hr 12/13/18 12/13/18 12/13/18 12:17 18:43 19:20 WBC RBC Hgb Hct MCV MCH MCHC RDW Plt Count MPV Sodium Potassium Chloride Carbon Dioxide Anion Gap BUN Creatinine Est GFR (CKD-EPI)AfAm Est GFR (CKD-EPI)NonAf POC Glucometer 106 Random Glucose Hemoglobin A1c % 6.6 H Calcium Iron TIBC Iron Saturation Unsaturated IBC Total Bilirubin AST ALT Alkaline Phosphatase Creatine Kinase Creatine Kinase Index CK-MB (CK-2) Troponin I 0.14 H Total Protein Albumin Triglycerides Cholesterol Total LDL Cholesterol HDL Cholesterol Urine Color Urine Appearance Urine pH Ur Specific [place] Urine Protein Urine Glucose (UA) Urine Ketones Urine Blood Urine Nitrite Urine Bilirubin Urine Urobilinogen Ur Leukocyte Esterase Urine WBC (Auto) Urine RBC (Auto) Urine Casts (Auto) U Epithel Cells (Auto) Urine Bacteria (Auto) Ur Random Creatinine 12/13/18 12/14/18 12/14/18 22:20 00:29 00:29 WBC RBC Hgb Hct MCV MCH MCHC RDW Plt Count MPV Sodium Potassium Chloride Carbon Dioxide Anion Gap BUN Creatinine Est GFR (CKD-EPI)AfAm Est GFR (CKD-EPI)NonAf POC Glucometer 123 Random Glucose Hemoglobin A1c % Calcium Iron TIBC Iron Saturation Unsaturated IBC Total Bilirubin AST ALT Alkaline Phosphatase Creatine Kinase Creatine Kinase Index CK-MB (CK-2) Troponin I 0.13 H Total Protein Albumin Triglycerides Cholesterol Total LDL Cholesterol HDL Cholesterol Urine Color Yellow Urine Appearance Turbid Urine pH 6.0 Ur Specific [place] 1.009 L Urine Protein 3+ H Urine Glucose (UA) 1+ H Urine Ketones Negative Urine Blood 2+ H Urine Nitrite Negative Urine Bilirubin Negative Urine Urobilinogen 1.0 Ur Leukocyte Esterase Trace Urine WBC (Auto) 10 Urine RBC (Auto) 188.1 Urine Casts (Auto) 2 U Epithel Cells (Auto) 4.2 Urine Bacteria (Auto) 194.9 Ur Random Creatinine 12/14/18 12/14/18 12/14/18 06:05 06:05 06:05 WBC 4.1 RBC 3.86 Hgb 10.0 L Hct 30.9 L MCV 80.0 MCH 26.0 MCHC 32.5 RDW 20.9 H Plt Count 171 MPV 7.5 Sodium 140 Potassium 4.1 Chloride 110 H Carbon Dioxide 24 Anion Gap 7 L BUN 43.1 H Creatinine 2.4 H Est GFR (CKD-EPI)AfAm 24.26 Est GFR (CKD-EPI)NonAf 20.93 POC Glucometer Random Glucose 92 Hemoglobin A1c % Calcium 8.8 Iron 36 L TIBC 288 Iron Saturation 12 L Unsaturated IBC 252 Total Bilirubin 0.4 AST 28 ALT 23 Alkaline Phosphatase 97 Creatine Kinase 326 H Creatine Kinase Index 6.4 H CK-MB (CK-2) 21.1 H Troponin I 0.13 H Total Protein 6.0 L Albumin 2.4 L Triglycerides 99 Cholesterol 292 H Total LDL Cholesterol 180 H HDL Cholesterol 79 H Urine Color Urine Appearance Urine pH Ur Specific [place] Urine Protein Urine Glucose (UA) Urine Ketones Urine Blood Urine Nitrite Urine Bilirubin Urine Urobilinogen Ur Leukocyte Esterase Urine WBC (Auto) Urine RBC (Auto) Urine Casts (Auto) U Epithel Cells (Auto) Urine Bacteria (Auto) Ur Random Creatinine 12/14/18 12/14/18 12/14/18 06:55 07:30 11:43 WBC RBC Hgb Hct MCV MCH MCHC RDW Plt Count MPV Sodium Potassium Chloride Carbon Dioxide Anion Gap BUN Creatinine Est GFR (CKD-EPI)AfAm Est GFR (CKD-EPI)NonAf POC Glucometer 86 116 Random Glucose Hemoglobin A1c % Calcium Iron TIBC Iron Saturation Unsaturated IBC Total Bilirubin AST ALT Alkaline Phosphatase Creatine Kinase Creatine Kinase Index CK-MB (CK-2) Troponin I Total Protein Albumin Triglycerides Cholesterol Total LDL Cholesterol HDL Cholesterol Urine Color Urine Appearance Urine pH Ur Specific [place] Urine Protein Urine Glucose (UA) Urine Ketones Urine Blood Urine Nitrite Urine Bilirubin Urine Urobilinogen Ur Leukocyte Esterase Urine WBC (Auto) Urine RBC (Auto) Urine Casts (Auto) U Epithel Cells (Auto) Urine Bacteria (Auto) Ur Random Creatinine 33.0 Problem List - Problems (1) Dyspnea Code(s): R06.00 - DYSPNEA, UNSPECIFIED (2) Chest discomfort Code(s): R07.89 - OTHER CHEST PAIN (3) Lower extremity edema Code(s): R60.0 - LOCALIZED EDEMA (4) Acute on chronic congestive heart failure Code(s): I50.9 - HEART FAILURE, UNSPECIFIED Qualifiers: Heart failure type: systolic Qualified Code(s): I50.23 - Acute on chronic systolic (congestive) heart failure (5) Anemia Code(s): D64.9 - ANEMIA, UNSPECIFIED Qualifiers: Anemia type: iron deficiency (6) CHF (congestive heart failure) Code(s): I50.9 - HEART FAILURE, UNSPECIFIED Qualifiers: Heart failure type: diastolic (7) Diabetes Code(s): E11.9 - TYPE 2 DIABETES MELLITUS WITHOUT COMPLICATIONS Qualifiers: Diabetes mellitus type: type 2 Diabetes mellitus mcfp insulin use: with mcfp use Diabetes mellitus complication status: with unspecified complications Assessment/Plan Lasix BID O2 as needed Daily weights Monitor I & O Monitor off ABX as I do not suspect Infectious process No smoking VTE prophylaxis Dr Mace Problem List - Problems (1) Dyspnea Code(s): R06.00 - DYSPNEA, UNSPECIFIED (2) Chest discomfort Code(s): R07.89 - OTHER CHEST PAIN (3) Lower extremity edema Code(s): R60.0 - LOCALIZED EDEMA (4) Acute on chronic congestive heart failure Code(s): I50.9 - HEART FAILURE, UNSPECIFIED Qualifiers: Heart failure type: systolic Qualified Code(s): I50.23 - Acute on chronic systolic (congestive) heart failure (5) Anemia Code(s): D64.9 - ANEMIA, UNSPECIFIED Qualifiers: Anemia type: iron deficiency (6) CHF (congestive heart failure) Code(s): I50.9 - HEART FAILURE, UNSPECIFIED Qualifiers: Heart failure type: diastolic (7) Diabetes Code(s): E11.9 - TYPE 2 DIABETES MELLITUS WITHOUT COMPLICATIONS Qualifiers: Diabetes mellitus type: type 2 Diabetes mellitus commodities clerk insulin use: with commodities clerk use Diabetes mellitus complication status: with unspecified complications
--- NOTE | 2018-12-14 21:57 | EKG ---
Test Reason : Blood Pressure : / mmHG Vent. Rate : 055 BPM Atrial Rate : 055 BPM P-R Int : 178 ms QRS Dur : 078 ms QT Int : 472 ms P-R-T Axes : 015 031 215 degrees QTc Int : 451 ms SINUS BRADYCARDIA ABNORMAL ECG WHEN COMPARED WITH ECG OF 12-DEC-2018 19:51, INVERTED T WAVES HAVE REPLACED NONSPECIFIC T WAVE ABNORMALITY IN INFERIOR LEADS INVERTED T WAVES HAVE REPLACED NONSPECIFIC T WAVE ABNORMALITY IN LATERAL LEADS Confirmed by Sindi Dixon ([id number]) on 12/14/2018 9:57:02 PM Referred By: Confirmed By:Sindi Dixon
[2018-12-14] MEDS: ROSUVASTATIN CA 10 MG TABLET (FP) PO SCH (22:32)
--- NOTE | 2018-12-14 23:31 | PN ---
Progress Note (short form) - Note Progress Note: problems kaci- partly 2/2 to decompensated chf urine protein and blood pos r/o glomerular inflamm sono echogenic kidneys no hydro CHF BNP very elevated CKD underlying Active Medications Amlodipine Besylate (Norvasc -) 5 mg PO DAILY [facility] Last Admin: 12/14/18 09:12 Dose: 5 mg Aspirin (Ecotrin -) 81 mg PO DAILY [facility] Last Admin: 12/14/18 09:11 Dose: 81 mg Ferrous Sulfate (Feosol -) 325 mg PO DAILY [facility] Last Admin: 12/14/18 09:11 Dose: 325 mg Furosemide (Lasix Injection -) 40 mg IVPUSH BID@0600,1400 [facility] Last Admin: 12/14/18 14:37 Dose: 40 mg Heparin Sodium (Porcine) (Heparin -) 5,000 unit SQ TID [facility] Last Admin: 12/14/18 22:32 Dose: 5,000 unit Insulin Aspart (Novolog Vial Sliding Scale -) 1 vial SQ ACHS [facility]; Protocol Last Admin: 12/14/18 22:30 Dose: Not Given Isosorbide Mononitrate (Imdur -) 60 mg PO DAILY [facility] Last Admin: 12/14/18 13:05 Dose: 60 mg Metoprolol Tartrate (Lopressor -) 25 mg PO BID [facility] Last Admin: 12/14/18 22:32 Dose: 25 mg Rosuvastatin Calcium (Crestor -) 10 mg PO HS [facility] Last Admin: 12/14/18 22:32 Dose: 10 mg Last Vital Signs Temp Pulse Resp BP Pulse Ox 97.2 F L 70 20 157/77 100 12/14/18 17:59 12/14/18 17:59 12/14/18 17:59 12/14/18 17:59 12/14/18 17:59 alert in nad Lungs clear heart reg Abd soft Ext mild nonpitting edema CBC, BMP 12/14/18 06:05 12/14/18 06:05 KACI/CKD 2/2 CHF better after lasix Proteinuria Chronic microscopic hematuria chronic Plan- f/u labs urine protein/creatinine ratio serology
[2018-12-15 01:41] VITALS: BMI 30.4
[2018-12-15] MEDS: HEPARIN NA (PORCINE) 5,000 UNITS/ML 1ML VIAL SQ SCH ×3 (06:11→21:54)
[2018-12-15] MEDS: FUROSEMIDE 40 MG/4 ML INJECTABLE VIAL IVPUSH SCH ×2 (06:11→13:26)
[2018-12-15] MEDS: INSULIN SLIDING SCALE (NOVOLOG) 1 VIAL SQ SCH ×4 (06:35→21:54)
[2018-12-15] MEDS: amLODIPine BESYLATE 5 MG TABLET (FP) PO SCH (10:27)
[2018-12-15] MEDS: ASPIRIN COATED 81 MG TABLET.EC PO SCH (10:28)
[2018-12-15] MEDS: METOPROLOL TARTRATE 25 MG TABLET (FP) PO SCH ×2 (10:28→21:54)
[2018-12-15] MEDS: FERROUS SO4 325 MG TABLET (FP) PO SCH ×2 (10:28→17:24)
[2018-12-15] MEDS: ISOSORBIDE MONONITRATE 60 MG TAB.SR.24H (FP) PO SCH (10:28)
--- NOTE | 2018-12-15 12:09 | PN ---
Progress Note, Physician History of Present Illness: Pt seen and examined at bedside. She is awake and appears comfortable. She feels that her lower ext edema is starting to improve. She was on lasix 40 mg twice a day at home however had stopped taking it as she says her is sick and she was busy with him. - Current Medication List Current Medications: Active Medications Amlodipine Besylate (Norvasc -) 5 mg PO DAILY [facility] Last Admin: 12/15/18 10:27 Dose: 5 mg Aspirin (Ecotrin -) 81 mg PO DAILY [facility] Last Admin: 12/15/18 10:28 Dose: 81 mg Ferrous Sulfate (Feosol -) 325 mg PO DAILY [facility] Last Admin: 12/15/18 10:28 Dose: 325 mg Furosemide (Lasix Injection -) 40 mg IVPUSH BID@0600,1400 [facility] Last Admin: 12/15/18 06:11 Dose: 40 mg Heparin Sodium (Porcine) (Heparin -) 5,000 unit SQ TID [facility] Last Admin: 12/15/18 06:11 Dose: 5,000 unit Insulin Aspart (Novolog Vial Sliding Scale -) 1 vial SQ ACHS [facility]; Protocol Last Admin: 12/15/18 11:23 Dose: Not Given Isosorbide Mononitrate (Imdur -) 60 mg PO DAILY [facility] Last Admin: 12/15/18 10:28 Dose: 60 mg Metoprolol Tartrate (Lopressor -) 25 mg PO BID [facility] Last Admin: 12/15/18 10:28 Dose: 25 mg Rosuvastatin Calcium (Crestor -) 10 mg PO HS [facility] Last Admin: 12/14/18 22:32 Dose: 10 mg - Objective Vital Signs: Vital Signs Temperature 98 F 12/15/18 10:00 Pulse Rate 70 12/15/18 10:00 Respiratory Rate 20 12/15/18 10:00 Blood Pressure 143/76 12/15/18 10:00 O2 Sat by Pulse Oximetry (%) 95 12/15/18 09:00 Constitutional: Yes: Calm Eyes: Yes: WNL HENT: Yes: WNL Cardiovascular: Yes: S1, S2 Respiratory: Yes: CTA Bilaterally Gastrointestinal: Yes: Normal Bowel Sounds, Soft Genitourinary: Yes: WNL Musculoskeletal: Yes: WNL Edema: Yes Edema: LLE: 2+, RLE: 2+ Neurological: Yes: Oriented Psychiatric: Yes: Oriented Labs: CBC, BMP 12/14/18 06:05 12/14/18 06:05 Problem List - Problems (1) KACI (acute kidney injury) Code(s): N17.9 - ACUTE KIDNEY FAILURE, UNSPECIFIED Assessment/Plan Current Medications Generic Name Dose Route Start Last Admin Trade Name Freq PRN Reason Stop Dose Admin Amlodipine Besylate 5 mg 12/13/18 10:00 12/15/18 10:27 Norvasc - PO 5 mg DAILY [facility] Administration Aspirin 81 mg 12/14/18 10:00 12/15/18 10:28 Ecotrin - PO 81 mg DAILY [facility] Administration Ferrous Sulfate 325 mg 12/13/18 10:00 12/15/18 10:28 Feosol - PO 325 mg DAILY [facility] Administration Furosemide 40 mg 12/13/18 06:00 12/15/18 06:11 Lasix Injection - IVPUSH 40 mg BID@0600,1400 [facility] Administration Heparin Sodium (Porcine) 5,000 unit 12/12/18 22:00 12/15/18 06:11 Heparin - SQ 5,000 unit TID [facility]USAN Administration Insulin Aspart 1 vial 12/13/18 22:00 12/15/18 11:23 Novolog Vial Sliding Scale - SQ Not Given ACHS [facility] Protocol Isosorbide Mononitrate 60 mg 12/14/18 13:00 12/15/18 10:28 Imdur - PO 60 mg DAILY [facility] Administration Metoprolol Tartrate 25 mg 12/14/18 09:00 12/15/18 10:28 Lopressor - PO 25 mg BID [facility] Administration Rosuvastatin Calcium 10 mg 12/14/18 22:00 12/14/18 22:32 Crestor - PO 10 mg HS [facility] Administration Laboratory Tests 03/02/18 03/03/18 12/12/18 06:30 09:28 19:00 Creatinine 1.0 1.0 2.0 H B-Natriuretic Peptide Ur Specific [place] Urine Protein Urine Blood IDRIS Screen 12/12/18 12/13/18 12/14/18 19:00 06:45 00:29 Creatinine 2.1 H B-Natriuretic Peptide 04031.0 H Ur Specific [place] 1.009 L Urine Protein 3+ H Urine Blood 2+ H IDRIS Screen 12/14/18 12/15/18 06:05 05:15 Creatinine 2.4 H B-Natriuretic Peptide Ur Specific [place] Urine Protein Urine Blood IDRIS Screen Pending Impression 1. KACI 2. anemia 3. proteinuria 4. pleural effusions 5. htn 6. dm 7. CHF Plan - cont IV lasix for fluid overload - may have KACI from cardiorenal vs ATN - follow renal workup - check prt to environmental science instructor ration - neg hydro on ultrasound - titrate down dose of norvasc
[2018-12-15 12:56] LABS: ALBUMIN 2.4 g/dl (3.4-5.0); BILIRUBIN,TOTAL 0.3 mg/dL (0.2-1); BLOOD UREA NITROGEN 44.9 mg/dL (7-18); CALCIUM 8.3 mg/dL (8.5-10.1); CREATININE 2.6 mg/dL (0.55-1.3); TOT PROT 5.9 g/dl (6.4-8.2)
--- NOTE | 2018-12-15 13:22 | ECHO ---
Name: MARCEL MENDEZ Exam:Adult Echocardiogram Study Date: 12/15/2018 09:28 AM Age: 63 yrs Reason For Study: CHF EXACERBATION OFF MEDS Height: 61 in Weight: 175 lb BSA: 1.8 m2 Procedure A complete two-dimensional transthoracic echocardiogram was performed (2D, M-mode, Doppler and color flow Doppler). Left Ventricle The left ventricle is normal in size. Left ventricular systolic function is moderately reduced. Eject ion Fraction = 40-45%. Diastolic dysfunction, Grade II, consistent with elevated left atrial pressure. Ra oc E/E'= 20. There is moderate global hypokinesis of the left ventricle. Right Ventricle The right ventricle is normal size. The right ventricular systolic function is moderately reduced. RV systolic TDI is 8 cm/s. Atria The left atrial size is normal. Right atrial size is normal. Mitral Valve There is mild mitral valve thickening. There is mild mitral annular calcification. There is mild mitr al regurgitation. Tricuspid Valve The tricuspid valve is normal in structure and function. There is moderate tricuspid regurgitation. P ulmonary artery systolic pressure is at least 39 mmHg if RA pressure is assumed 8 mmHg. Aortic Valve There is mild aortic sclerosis.;. No aortic regurgitation is present. Pulmonic Valve The pulmonic valve is not well visualized. Great Vessels The aortic root is normal size. Pericardium/Pleura Trivial pericardial effusion not hemodynamically significant. Large pleural effusion. Interpretation Summary The left ventricle is normal in size. Left ventricular systolic function is moderately reduced. There is moderate global hypokinesis of the left ventricle. Ejection Fraction = 40-45%. Diastolic dysfunction, Grade II, consistent with elevated left atrial pressure. Ratio E/E'= 20 The right ventricular systolic function is moderately reduced. The left atrial size is normal. Right atrial size is normal. There is mild mitral valve thickening. There is mild mitral annular calcification. There is mild mitral regurgitation. There is moderate tricuspid regurgitation. Pulmonary artery systolic pressure is at least 39 mmHg if RA pressure is assumed 8 mmHg There is mild aortic sclerosis. Trivial pericardial effusion not hemodynamically significant Large pleural effusion Fidel Serrano MD 12/15/2018 01:22 PM
--- NOTE | 2018-12-15 15:13 | PN ---
Progress Note, Physician Chief Complaint: patient seen and examined still with leg swelling - Current Medication List Current Medications: Active Medications Amlodipine Besylate (Norvasc -) 5 mg PO DAILY [facility] Last Admin: 12/15/18 10:27 Dose: 5 mg Aspirin (Ecotrin -) 81 mg PO DAILY [facility] Last Admin: 12/15/18 10:28 Dose: 81 mg Ferrous Sulfate (Feosol -) 325 mg PO BIDWM [facility] Furosemide (Lasix Injection -) 40 mg IVPUSH BID@0600,1400 [facility] Last Admin: 12/15/18 13:26 Dose: 40 mg Heparin Sodium (Porcine) (Heparin -) 5,000 unit SQ TID [facility] Last Admin: 12/15/18 13:26 Dose: 5,000 unit Insulin Aspart (Novolog Vial Sliding Scale -) 1 vial SQ ACHS [facility]; Protocol Last Admin: 12/15/18 11:23 Dose: Not Given Isosorbide Mononitrate (Imdur -) 60 mg PO DAILY [facility] Last Admin: 12/15/18 10:28 Dose: 60 mg Metoprolol Tartrate (Lopressor -) 25 mg PO BID [facility] Last Admin: 12/15/18 10:28 Dose: 25 mg Rosuvastatin Calcium (Crestor -) 10 mg PO HS [facility] Last Admin: 12/14/18 22:32 Dose: 10 mg - Objective Vital Signs: Vital Signs Temperature 98 F 12/15/18 10:00 Pulse Rate 70 12/15/18 10:00 Respiratory Rate 20 12/15/18 10:00 Blood Pressure 143/76 12/15/18 10:00 O2 Sat by Pulse Oximetry (%) 95 12/15/18 09:00 Constitutional: Yes: Calm Cardiovascular: Yes: Regular Rate and Rhythm, S1, S2 Respiratory: Yes: CTA Bilaterally Gastrointestinal: Yes: Normal Bowel Sounds, Soft Edema: Yes Labs: CBC, BMP 12/14/18 06:05 12/15/18 10:40 Problem List - Problems (1) Lower extremity edema Assessment/Plan: iv lasix echo noted for left ventricle systolic function is mod reduced 40-45% ejection fraction and grade 2 diastolic dysfunction Code(s): R60.0 - LOCALIZED EDEMA (2) Elevated troponin Assessment/Plan: appreicate cardiology noted imdur echo noted trend troponin Code(s): R79.89 - OTHER SPECIFIED ABNORMAL FINDINGS OF BLOOD CHEMISTRY
--- NOTE | 2018-12-15 15:41 | PN ---
Progress Note, Physician Chief Complaint: Cardiology FU Telem NSR No SOB but feels unsteady. Less swelling. History of Present Illness: 63 y/o female with past medical history IDDM and HTN, chf with EF 45% diagnosed in 2018. She presents to the ER with b/l leg numbness and chest pain. Pt described the pain as a tightness in the middle of her chest that is non radiating, intermittent and associated with dizziness. Drinking water made the pain better and exertion made it worse. 5/10 in severity. Pt denies any shortness of breath and endorsed being non compliant to her medications for a month and a half or so due to being sick and hospitalized. Echocardiogram 02/28/18 EF 45% lateral wall hypokinesis, mild to moderate MR. trop + to 0.13. EKG with new TWI laterally. No ALVIN. Likely demand 2/2 CHF new creatinine 2.1 and anemia. Echocardiogram 12/15/18 EF 40-45% golbal hypokinesis. Elevated LA pressure. Moderate RV hypokinesis. Rt pleural effusion. - Current Medication List Current Medications: Active Medications Amlodipine Besylate (Norvasc -) 5 mg PO DAILY [facility] Last Admin: 12/15/18 10:27 Dose: 5 mg Aspirin (Ecotrin -) 81 mg PO DAILY [facility] Last Admin: 12/15/18 10:28 Dose: 81 mg Ferrous Sulfate (Feosol -) 325 mg PO BIDWM [facility] Furosemide (Lasix Injection -) 40 mg IVPUSH BID@0600,1400 [facility] Last Admin: 12/15/18 13:26 Dose: 40 mg Heparin Sodium (Porcine) (Heparin -) 5,000 unit SQ TID [facility] Last Admin: 12/15/18 13:26 Dose: 5,000 unit Insulin Aspart (Novolog Vial Sliding Scale -) 1 vial SQ ACHS [facility]; Protocol Last Admin: 12/15/18 11:23 Dose: Not Given Isosorbide Mononitrate (Imdur -) 60 mg PO DAILY [facility] Last Admin: 12/15/18 10:28 Dose: 60 mg Metoprolol Tartrate (Lopressor -) 25 mg PO BID [facility] Last Admin: 12/15/18 10:28 Dose: 25 mg Rosuvastatin Calcium (Crestor -) 10 mg PO HS [facility] Last Admin: 12/14/18 22:32 Dose: 10 mg - Objective Vital Signs: Vital Signs Temperature 98 F 12/15/18 10:00 Pulse Rate 70 12/15/18 10:00 Respiratory Rate 20 12/15/18 10:00 Blood Pressure 143/76 12/15/18 10:00 O2 Sat by Pulse Oximetry (%) 95 12/15/18 09:00 Constitutional: Yes: Well Nourished, No Distress Eyes: Yes: Conjunctiva Clear, EOM Intact HENT: Yes: Atraumatic, Normocephalic Neck: Yes: Supple, Trachea Midline Cardiovascular: Yes: Regular Rate and Rhythm, JVD, S1, S2 Respiratory: Yes: Regular (Dullness to percussion bilateral bases.) Gastrointestinal: Yes: Normal Bowel Sounds Edema: Yes Edema: LLE: 1+, RLE: 1+ Labs: CBC, BMP 12/14/18 06:05 12/15/18 10:40 Problem List - Problems (1) KACI (acute kidney injury) Code(s): N17.9 - ACUTE KIDNEY FAILURE, UNSPECIFIED (2) Acute on chronic congestive heart failure Code(s): I50.9 - HEART FAILURE, UNSPECIFIED Qualifiers: Heart failure type: systolic Qualified Code(s): I50.23 - Acute on chronic systolic (congestive) heart failure Assessment/Plan 63 y/o female with past medical history IDDM and HTN, chf with EF 45% diagnosed in 2018. She presents to the ER with b/l leg numbness and chest pain. Pt described the pain as a tightness in the middle of her chest that is non radiating, intermittent and associated with dizziness. Drinking water made the pain better and exertion made it worse. 5/10 in severity. Pt denies any shortness of breath and endorsed being non compliant to her medications for a month and a half or so due to being sick and hospitalized. Echocardiogram EF 40-45% with global hypokinsesis and Mod RV hypokinesis. Plan Heart failure with reduced EF, KACI -Declining weight due to diuresis. Imporved volume status with mild Lext edema. -switch to furosemide 40mg po BID -daily wts.
[2018-12-15] MEDS: ROSUVASTATIN CA 10 MG TABLET (FP) PO SCH (21:54)
[2018-12-16] MEDS: FUROSEMIDE 40 MG TABLET (FP) PO SCH ×2 (06:43→13:27)
[2018-12-16] MEDS: HEPARIN NA (PORCINE) 5,000 UNITS/ML 1ML VIAL SQ SCH ×2 (06:43→21:39)
[2018-12-16] MEDS: INSULIN SLIDING SCALE (NOVOLOG) 1 VIAL SQ SCH ×4 (06:47→21:46)
[2018-12-16 07:26] LABS: ALBUMIN 2.2 g/dl (3.4-5.0); BILIRUBIN,TOTAL 0.3 mg/dL (0.2-1); BLOOD UREA NITROGEN 47.2 mg/dL (7-18); CALCIUM 8.3 mg/dL (8.5-10.1); CREATININE 2.8 mg/dL (0.55-1.3); POTASSIUM 3.9 mmol/L (3.5-5.1); TOT PROT 5.6 g/dl (6.4-8.2)
[2018-12-16] MEDS: ASPIRIN COATED 81 MG TABLET.EC PO SCH (09:32)
[2018-12-16] MEDS: amLODIPine BESYLATE 5 MG TABLET (FP) PO SCH (09:33)
[2018-12-16] MEDS: FERROUS SO4 325 MG TABLET (FP) PO SCH ×2 (09:33→17:29)
[2018-12-16] MEDS: METOPROLOL TARTRATE 25 MG TABLET (FP) PO SCH ×2 (09:33→21:39)
[2018-12-16] MEDS: ISOSORBIDE MONONITRATE 60 MG TAB.SR.24H (FP) PO SCH (09:33)
--- NOTE | 2018-12-16 11:12 | PN ---
Progress Note, Physician Chief Complaint: Acute on Chronic CHF History of Present Illness: S/P fall at 10:35 AM, when she was trying to go to the bathroom. Waucoma dizzy when pt got up, hit her head on to the floor Stat CT head ordered. Denies any dizziness or light headedness at the moment. C/ o parietal headache at the site of injury. No visual disturbance. Vitals stable at this time. - Current Medication List Current Medications: Active Medications Amlodipine Besylate (Norvasc -) 5 mg PO DAILY [facility] Last Admin: 12/16/18 09:33 Dose: 5 mg Aspirin (Ecotrin -) 81 mg PO DAILY [facility] Last Admin: 12/16/18 09:32 Dose: 81 mg Ferrous Sulfate (Feosol -) 325 mg PO BIDWM [facility] Last Admin: 12/16/18 09:33 Dose: 325 mg Furosemide (Lasix -) 40 mg PO BID@0600,1400 [facility] Last Admin: 12/16/18 06:43 Dose: 40 mg Heparin Sodium (Porcine) (Heparin -) 5,000 unit SQ TID [facility] Last Admin: 12/16/18 06:43 Dose: 5,000 unit Insulin Aspart (Novolog Vial Sliding Scale -) 1 vial SQ [facility]; Protocol Last Admin: 12/16/18 06:47 Dose: Not Given Isosorbide Mononitrate (Imdur -) 60 mg PO DAILY [facility] Last Admin: 12/16/18 09:33 Dose: 60 mg Metoprolol Tartrate (Lopressor -) 25 mg PO BID [facility] Last Admin: 12/16/18 09:33 Dose: 25 mg Rosuvastatin Calcium (Crestor -) 10 mg PO HS [facility] Last Admin: 12/15/18 21:54 Dose: 10 mg - Objective Vital Signs: Vital Signs Temperature 97.8 F 12/16/18 10:00 Pulse Rate 65 12/16/18 10:00 Respiratory Rate 20 12/16/18 10:00 Blood Pressure 158/86 12/16/18 10:00 O2 Sat by Pulse Oximetry (%) 95 12/16/18 09:00 Constitutional: Yes: Well Nourished, No Distress, Calm Cardiovascular: Yes: Regular Rate and Rhythm Respiratory: Yes: Regular Gastrointestinal: Yes: WNL, Normal Bowel Sounds, Soft, Abdomen, Obese Genitourinary: Yes: WNL Musculoskeletal: Yes: Muscle Weakness Extremities: Yes: WNL Edema: No Peripheral Pulses WNL: Yes Neurological: Yes: Alert, Oriented Psychiatric: Yes: Alert, Oriented Labs: CBC, BMP 12/14/18 06:05 12/16/18 06:05 Problem List - Problems (1) Proteinuria Assessment/Plan: -nephrology on board -check prt to electric needle specialist ration -neg hydro on ultrasound renal -Workup in progress Problems reviewed: Yes Code(s): R80.9 - PROTEINURIA, UNSPECIFIED (2) KACI (acute kidney injury) Assessment/Plan: -Cr trending up gradually -UC negative -nephrology on board -check prt to electric needle specialist ration -neg hydro on ultrasound renal -Workup in progress Problems reviewed: Yes Code(s): N17.9 - ACUTE KIDNEY FAILURE, UNSPECIFIED (3) Elevated troponin Assessment/Plan: -Seen by Cardiology -Tele monitoring -04/05 to demand ischemia due to CHF Problems reviewed: Yes Code(s): R79.89 - OTHER SPECIFIED ABNORMAL FINDINGS OF BLOOD CHEMISTRY (4) Acute on chronic congestive heart failure Assessment/Plan: -Cardiology on board -Echocardiogram 12/15/18 EF 40-45% golbal hypokinesis. Elevated LA pressure. Moderate RV hypokinesis. Rt pleural effusion. -IV diuresis -Low sodium diet Problems reviewed: Yes Code(s): I50.9 - HEART FAILURE, UNSPECIFIED Qualifiers: Heart failure type: systolic Qualified Code(s): I50.23 - Acute on chronic systolic (congestive) heart failure (5) Anemia Assessment/Plan: -Stable Problems reviewed: Yes Code(s): D64.9 - ANEMIA, UNSPECIFIED Qualifiers: Anemia type: iron deficiency (6) HTN (hypertension) Problems reviewed: Yes Code(s): I10 - ESSENTIAL (PRIMARY) HYPERTENSION (7) Diabetes Assessment/Plan: -BGM AC HS -Diabetic low sodium diet -ISS -A1c at 6.6 Problems reviewed: Yes Code(s): E11.9 - TYPE 2 DIABETES MELLITUS WITHOUT COMPLICATIONS Qualifiers: Diabetes mellitus type: type 2 Diabetes mellitus custodial insulin use: with oil heaterman use Diabetes mellitus complication status: with unspecified complications Assessment/Plan see problem list
--- NOTE | 2018-12-16 11:19 | PN ---
Progress Note, Physician History of Present Illness: PULMONARY ALERT,FEELING BETTER,LESS DYSPNEIC - Current Medication List Current Medications: Active Medications Amlodipine Besylate (Norvasc -) 5 mg PO DAILY [facility] Last Admin: 12/16/18 09:33 Dose: 5 mg Aspirin (Ecotrin -) 81 mg PO DAILY [facility] Last Admin: 12/16/18 09:32 Dose: 81 mg Ferrous Sulfate (Feosol -) 325 mg PO BIDWM [facility] Last Admin: 12/16/18 09:33 Dose: 325 mg Furosemide (Lasix -) 40 mg PO BID@0600,1400 [facility] Last Admin: 12/16/18 06:43 Dose: 40 mg Heparin Sodium (Porcine) (Heparin -) 5,000 unit SQ TID [facility] Last Admin: 12/16/18 06:43 Dose: 5,000 unit Insulin Aspart (Novolog Vial Sliding Scale -) 1 vial SQ ACHS [facility]; Protocol Last Admin: 12/16/18 06:47 Dose: Not Given Isosorbide Mononitrate (Imdur -) 60 mg PO DAILY [facility] Last Admin: 12/16/18 09:33 Dose: 60 mg Metoprolol Tartrate (Lopressor -) 25 mg PO BID [facility] Last Admin: 12/16/18 09:33 Dose: 25 mg Rosuvastatin Calcium (Crestor -) 10 mg PO HS [facility] Last Admin: 12/15/18 21:54 Dose: 10 mg - Objective Vital Signs: Vital Signs Temperature 97.8 F 12/16/18 10:00 Pulse Rate 65 12/16/18 10:00 Respiratory Rate 20 12/16/18 10:00 Blood Pressure 158/86 12/16/18 10:00 O2 Sat by Pulse Oximetry (%) 95 12/16/18 09:00 Constitutional: Yes: Well Nourished, Calm Eyes: Yes: WNL HENT: Yes: WNL Neck: Yes: WNL Cardiovascular: Yes: Regular Rate and Rhythm, S1, S2 Respiratory: Yes: Rales (FEW BIBASAILAR RALES) Gastrointestinal: Yes: Normal Bowel Sounds, Soft Extremities: Yes: WNL Edema: No Labs: CBC, BMP 12/14/18 06:05 12/16/18 06:05 Assessment/Plan Problem List - Problems (1) Dyspnea Code(s): R06.00 - DYSPNEA, UNSPECIFIED (2) Chest discomfort Code(s): R07.89 - OTHER CHEST PAIN (3) Lower extremity edema Code(s): R60.0 - LOCALIZED EDEMA (4) Acute on chronic congestive heart failure Code(s): I50.9 - HEART FAILURE, UNSPECIFIED Qualifiers: Heart failure type: systolic Qualified Code(s): I50.23 - Acute on chronic systolic (congestive) heart failure (5) Anemia Code(s): D64.9 - ANEMIA, UNSPECIFIED Qualifiers: Anemia type: iron deficiency (6) CHF (congestive heart failure) Code(s): I50.9 - HEART FAILURE, UNSPECIFIED Qualifiers: Heart failure type: diastolic (7) Diabetes Code(s): E11.9 - TYPE 2 DIABETES MELLITUS WITHOUT COMPLICATIONS Qualifiers: Diabetes mellitus type: type 2 Diabetes mellitus long term care pharmacist insulin use: with jail use Diabetes mellitus complication status: with unspecified complications PULMONARY HTN Assessment/Plan Lasix BID O2 as needed Daily weights Monitor I & O No smoking VTE prophylaxis f/u chest x-rays DR COREY
--- NOTE | 2018-12-16 11:53 | PN ---
Progress Note, Physician History of Present Illness: pt seen and examined today in [facility]. states she is overall feeling better, no overnight events. states she felt lightheaded when getting up and walking yesterday and today. today was not as bad. - Current Medication List Current Medications: Active Medications Amlodipine Besylate (Norvasc -) 5 mg PO DAILY [facility] Last Admin: 12/16/18 09:33 Dose: 5 mg Aspirin (Ecotrin -) 81 mg PO DAILY [facility] Last Admin: 12/16/18 09:32 Dose: 81 mg Ferrous Sulfate (Feosol -) 325 mg PO BIDWM [facility] Last Admin: 12/16/18 09:33 Dose: 325 mg Furosemide (Lasix -) 40 mg PO BID@0600,1400 [facility] Last Admin: 12/16/18 06:43 Dose: 40 mg Heparin Sodium (Porcine) (Heparin -) 5,000 unit SQ BID [facility] Insulin Aspart (Novolog Vial Sliding Scale -) 1 vial SQ [facility]; Protocol Last Admin: 12/16/18 11:21 Dose: Not Given Isosorbide Mononitrate (Imdur -) 60 mg PO DAILY [facility] Last Admin: 12/16/18 09:33 Dose: 60 mg Metoprolol Tartrate (Lopressor -) 25 mg PO BID [facility] Last Admin: 12/16/18 09:33 Dose: 25 mg Rosuvastatin Calcium (Crestor -) 10 mg PO HS [facility] Last Admin: 12/15/18 21:54 Dose: 10 mg - Objective Vital Signs: Vital Signs Temperature 97.8 F 12/16/18 10:00 Pulse Rate 65 12/16/18 10:00 Respiratory Rate 20 12/16/18 10:00 Blood Pressure 158/86 12/16/18 10:00 O2 Sat by Pulse Oximetry (%) 95 12/16/18 09:00 Constitutional: Yes: Well Nourished, No Distress, Calm Eyes: Yes: Conjunctiva Clear, EOM Intact HENT: Yes: Atraumatic, Normocephalic Neck: Yes: Supple, Trachea Midline Cardiovascular: Yes: Regular Rate and Rhythm, Murmur, S1, S2. No: Bradycardia, Tachycardia, Pulse Irregular, Bruit, JVD, Gallop, Rub, S3, S4, Varicosities Respiratory: Yes: Regular, Diminished. No: Rales, Rhonchi, SOB, Wheezes Gastrointestinal: Yes: Normal Bowel Sounds, Soft. No: Distention, Tenderness Musculoskeletal: Yes: WNL Extremities: Yes: WNL Edema: No Peripheral Pulses WNL: Yes Peripheral Pulses: Left Doralis Pedis: 2+, Right Dorsalis Pedis: 2+ Neurological: Yes: Alert, Oriented Psychiatric: Yes: Alert, Oriented Labs: CBC, BMP 12/14/18 06:05 12/16/18 06:05 - ....Imaging Chest X-ray: Report Reviewed, Image Reviewed EKG: Report Reviewed, Image Reviewed Other: Report Reviewed, Image Reviewed (tele-nsr, no sig arrhythmias) Assessment/Plan 63 y/o female with past medical history IDDM and HTN, chf with EF 45% diagnosed in 2018. She presents to the ER with b/l leg numbness and chest pain. Pt described the pain as a tightness in the middle of her chest that is non radiating, intermittent and associated with dizziness. Drinking water made the pain better and exertion made it worse. 5/10 in severity. Pt denies any shortness of breath and endorsed being non compliant to her medications for a month and a half or so due to being sick and hospitalized. Echocardiogram EF 40-45% with global hypokinsesis and Mod RV hypokinesis. Plan Heart failure with reduced EF, KACI -clinically improved -volume status improving with persistent residual pleural effusions which will take time to resolve with diuresis -cont furosemide 40mg po BID, can consider changing to Torsemide in the future -monitor daily wts.
--- NOTE | 2018-12-16 13:48 | PN ---
Progress Note, Physician History of Present Illness: Pt seen and examined at bedside. She had a fall today. - Current Medication List Current Medications: Active Medications Amlodipine Besylate (Norvasc -) 5 mg PO DAILY [facility] Last Admin: 12/16/18 09:33 Dose: 5 mg Aspirin (Ecotrin -) 81 mg PO DAILY [facility] Last Admin: 12/16/18 09:32 Dose: 81 mg Ferrous Sulfate (Feosol -) 325 mg PO BIDWM [facility] Last Admin: 12/16/18 09:33 Dose: 325 mg Furosemide (Lasix -) 40 mg PO BID@0600,1400 [facility] Last Admin: 12/16/18 13:27 Dose: 40 mg Heparin Sodium (Porcine) (Heparin -) 5,000 unit SQ BID [facility] Insulin Aspart (Novolog Vial Sliding Scale -) 1 vial SQ ACHS [facility]; Protocol Last Admin: 12/16/18 11:21 Dose: Not Given Isosorbide Mononitrate (Imdur -) 60 mg PO DAILY [facility] Last Admin: 12/16/18 09:33 Dose: 60 mg Metoprolol Tartrate (Lopressor -) 25 mg PO BID [facility] Last Admin: 12/16/18 09:33 Dose: 25 mg Rosuvastatin Calcium (Crestor -) 10 mg PO HS [facility] Last Admin: 12/15/18 21:54 Dose: 10 mg - Objective Vital Signs: Vital Signs Temperature 97.8 F 12/16/18 12:22 Pulse Rate 63 12/16/18 12:22 Respiratory Rate 18 12/16/18 12:22 Blood Pressure 143/85 12/16/18 12:22 O2 Sat by Pulse Oximetry (%) 95 12/16/18 09:00 Constitutional: Yes: Calm Eyes: Yes: Conjunctiva Clear HENT: Yes: Atraumatic Cardiovascular: Yes: S1, S2 Respiratory: Yes: CTA Bilaterally Gastrointestinal: Yes: Soft Genitourinary: Yes: WNL Musculoskeletal: Yes: WNL Edema: Yes Edema: LLE: 2+, RLE: 2+ Neurological: Yes: Oriented Psychiatric: Yes: Oriented Labs: CBC, BMP 12/14/18 06:05 12/16/18 06:05 Problem List - Problems (1) KACI (acute kidney injury) Code(s): N17.9 - ACUTE KIDNEY FAILURE, UNSPECIFIED Assessment/Plan Current Medications Generic Name Dose Route Start Last Admin Trade Name Freq PRN Reason Stop Dose Admin Amlodipine Besylate 5 mg 12/13/18 10:00 12/16/18 09:33 Norvasc - PO 5 mg DAILY [facility] Administration Aspirin 81 mg 12/14/18 10:00 12/16/18 09:32 Ecotrin - PO 81 mg DAILY [facility] Administration Ferrous Sulfate 325 mg 12/15/18 17:30 12/16/18 09:33 Feosol - PO 325 mg BIDWM [facility] Administration Furosemide 40 mg 12/16/18 06:00 12/16/18 13:27 Lasix - PO 40 mg BID@0600,1400 [facility] Administration Heparin Sodium (Porcine) 5,000 unit 12/16/18 22:00 Heparin - SQ BID [facility] Insulin Aspart 1 vial 12/13/18 22:00 12/16/18 11:21 Novolog Vial Sliding Scale - SQ Not Given ACHS [facility] Protocol Isosorbide Mononitrate 60 mg 12/14/18 13:00 12/16/18 09:33 Imdur - PO 60 mg DAILY [facility] Administration Metoprolol Tartrate 25 mg 12/14/18 09:00 12/16/18 09:33 Lopressor - PO 25 mg BID [facility] Administration Rosuvastatin Calcium 10 mg 12/14/18 22:00 12/15/18 21:54 Crestor - PO 10 mg HS [facility] Administration Laboratory Tests 12/15/18 12/15/18 12/16/18 05:15 13:00 10:10 Protein/Creatinin Ratio 6.8 IDRIS Screen Pending c-ANCA Pending Proteinase 3 (PR3) Pending p-ANCA Pending Atypical p-ANCA Pending Myeloperoxidase Ab Pending Double Strand DNA Ab Pending Impression 1. KACI 2. anemia 3. proteinuria 4. pleural effusions 5. htn 6. dm 7. CHF Plan - discussed kidney biopsy with pt - will need to see if pt can be off of aspirin - will need 7 days off of aslpirin before biopsy - pt with active sediment and nephrotoci proteinuria - repeat ua - cont lasix - neg hydro on ultrasound - titrate down dose of norvasc
[2018-12-16] MEDS ORDERED: ACETAMINOPHEN 325 MG TABLET (FP) ONE (16:22)
[2018-12-16] MEDS ORDERED: ACETAMINOPHEN 325 MG TABLET (FP) PO PRN (16:24)
[2018-12-16 17:17] LABS: EPI CELLS 2.6 /HPF (0-5/HPF); HYALINE CASTS 6 /lpf (0-8); PH,URINE 5.5 (5.0-8.0); URINE APPEARANCE CLEAR; URINE BACTERIA 14.8 /hpf (NEGATIVE); URINE BILIRUBIN NEGATIVE (NEGATIVE); URINE COLOR YELLOW; URINE GLUCOSE (UA) 1+ (NEGATIVE); URINE KETONE NEGATIVE (NEGATIVE); URINE LEUK ESTERASE NEGATIVE (NEGATIVE); URINE NITRITE NEGATIVE (NEGATIVE); URINE PROTEIN 3+ (NEGATIVE); URINE RBC 9 /hpf (0-4); URINE UROBILINOGEN 0.2 mg/dL (0.2-1.0); URINE WBC 2 /hpf (0-5)
[2018-12-16 19:07] LABS: HEP B CORE AB, TOT Negative (Negative)
[2018-12-16] MEDS: ROSUVASTATIN CA 10 MG TABLET (FP) PO SCH (21:39)
[2018-12-17] MEDS: INSULIN SLIDING SCALE (NOVOLOG) 1 VIAL SQ SCH ×4 (06:07→22:29)
[2018-12-17] MEDS: FUROSEMIDE 40 MG TABLET (FP) PO SCH (06:08)
--- NOTE | 2018-12-17 10:30 | PN ---
Progress Note, Physician Chief Complaint: Acute on Chronic CHF History of Present Illness: S/P fall at 10:35 AM yesterday, when she was trying to go to the bathroom. [place] dizzy when pt got up, hit her head on to the floor Stat CT head ordered. Denies any dizziness or light headedness at the moment. C/ o parietal headache at the site of injury. No visual disturbance. Vitals stable at this time. CT head unremarkable with mild soft tissue swelling. C/O nausea today - Current Medication List Current Medications: Active Medications Acetaminophen (Tylenol -) 650 mg PO Q6H PRN PRN Reason: PAIN LEVEL 7 - 10 Last Admin: 12/16/18 16:33 Dose: 650 mg Amlodipine Besylate (Norvasc -) 5 mg PO DAILY [facility] Last Admin: 12/16/18 09:33 Dose: 5 mg Aspirin (Ecotrin -) 81 mg PO DAILY [facility] Last Admin: 12/16/18 09:32 Dose: 81 mg Ferrous Sulfate (Feosol -) 325 mg PO BIDWM [facility] Last Admin: 12/16/18 17:29 Dose: 325 mg Furosemide (Lasix -) 40 mg PO BID@0600,1400 [facility] Last Admin: 12/17/18 06:08 Dose: 40 mg Heparin Sodium (Porcine) (Heparin -) 5,000 unit SQ BID [facility] Last Admin: 12/16/18 21:39 Dose: 5,000 unit Insulin Aspart (Novolog Vial Sliding Scale -) 1 vial SQ ACHS [facility]; Protocol Last Admin: 12/17/18 06:07 Dose: Not Given Isosorbide Mononitrate (Imdur -) 60 mg PO DAILY [facility] Last Admin: 12/16/18 09:33 Dose: 60 mg Metoprolol Tartrate (Lopressor -) 25 mg PO BID [facility] Last Admin: 12/16/18 21:39 Dose: 25 mg Rosuvastatin Calcium (Crestor -) 10 mg PO HS [facility] Last Admin: 12/16/18 21:39 Dose: 10 mg - Objective Vital Signs: Vital Signs Temperature 97.4 F L 12/17/18 10:22 Pulse Rate 64 12/17/18 10:22 Respiratory Rate 20 12/17/18 10:22 Blood Pressure 152/88 12/17/18 10:22 O2 Sat by Pulse Oximetry (%) 98 12/17/18 09:00 Constitutional: Yes: Well Nourished, No Distress, Calm Cardiovascular: Yes: Regular Rate and Rhythm Respiratory: Yes: Regular Gastrointestinal: Yes: Normal Bowel Sounds, Soft Musculoskeletal: Yes: Muscle Weakness Extremities: Yes: WNL Edema: Yes Edema: LLE: 1+, RLE: 1+ Peripheral Pulses WNL: Yes Wound/Incision: Yes: Unapproximated Neurological: Yes: Alert Psychiatric: Yes: Alert, Oriented Labs: CBC, BMP 12/14/18 06:05 Problem List - Problems (1) Proteinuria Assessment/Plan: -nephrology on board -check prt to clinical project manager ration -neg hydro on ultrasound renal -Needs renal biopsy, will need asa to be held at least 5 days. Cardiology notified. Problems reviewed: Yes Code(s): R80.9 - PROTEINURIA, UNSPECIFIED (2) KACI (acute kidney injury) Assessment/Plan: -Cr trending up gradually -UC negative -nephrology on board -check prt to clinical project manager ration -neg hydro on ultrasound renal -Decrease furosemide to 40 mg po daily Problems reviewed: Yes Code(s): N17.9 - ACUTE KIDNEY FAILURE, UNSPECIFIED (3) Elevated troponin Assessment/Plan: -Seen by Cardiology -Tele monitoring -04/05 to demand ischemia due to CHF Problems reviewed: Yes Code(s): R79.89 - OTHER SPECIFIED ABNORMAL FINDINGS OF BLOOD CHEMISTRY (4) Acute on chronic congestive heart failure Assessment/Plan: -Cardiology on board -Echocardiogram 12/15/18 EF 40-45% golbal hypokinesis. Elevated LA pressure. Moderate RV hypokinesis. Rt pleural effusion. -IV diuresis -Low sodium diet Problems reviewed: Yes Code(s): I50.9 - HEART FAILURE, UNSPECIFIED Qualifiers: Heart failure type: systolic Qualified Code(s): I50.23 - Acute on chronic systolic (congestive) heart failure (5) Anemia Assessment/Plan: -Stable -On Feosol bid -Stool OB pending Problems reviewed: Yes Code(s): D64.9 - ANEMIA, UNSPECIFIED Qualifiers: Anemia type: iron deficiency (6) HTN (hypertension) Assessment/Plan: -Amlodipine to be dicontinued as per nephrology's recommendation -Cardiology notified to tweak other meds -Repeat orthostatic BP today Problems reviewed: Yes Code(s): I10 - ESSENTIAL (PRIMARY) HYPERTENSION (7) Diabetes Assessment/Plan: -BGM AC HS -Diabetic low sodium diet -ISS -A1c at 6.6 Problems reviewed: Yes Code(s): E11.9 - TYPE 2 DIABETES MELLITUS WITHOUT COMPLICATIONS Qualifiers: Diabetes mellitus type: type 2 Diabetes mellitus [facility] insulin use: with [facility] use Diabetes mellitus complication status: with unspecified complications (8) Fall Assessment/Plan: -CT head yesterday showed mild soft tissue swelling -Repeat CT head today -Fall/safety precautions Problems reviewed: Yes Code(s): W19.XXXA - UNSPECIFIED FALL, INITIAL ENCOUNTER Assessment/Plan see problem list Physical therapy
[2018-12-17 10:36] LABS: ALBUMIN 2.3 g/dl (3.4-5.0); BILIRUBIN,TOTAL 0.3 mg/dL (0.2-1); BLOOD UREA NITROGEN 49.9 mg/dL (7-18); CALCIUM 8.3 mg/dL (8.5-10.1); CREATININE 2.9 mg/dL (0.55-1.3); TOT PROT 5.7 g/dl (6.4-8.2)
--- NOTE | 2018-12-17 10:55 | PN ---
Progress Note, Physician History of Present Illness: pulmonary alert,c/o dizziness,nausea,-cp,-sob - Current Medication List Current Medications: Active Medications Acetaminophen (Tylenol -) 650 mg PO Q6H PRN PRN Reason: PAIN LEVEL 7 - 10 Last Admin: 12/16/18 16:33 Dose: 650 mg Amlodipine Besylate (Norvasc -) 5 mg PO DAILY [facility] Last Admin: 12/16/18 09:33 Dose: 5 mg Aspirin (Ecotrin -) 81 mg PO DAILY [facility] Last Admin: 12/16/18 09:32 Dose: 81 mg Docusate Sodium (Colace -) 300 mg PO [facility] Ferrous Sulfate (Feosol -) 325 mg PO BIDWM [facility] Last Admin: 12/16/18 17:29 Dose: 325 mg Furosemide (Lasix -) 40 mg PO BID@0600,1400 [facility] Last Admin: 12/17/18 06:08 Dose: 40 mg Heparin Sodium (Porcine) (Heparin -) 5,000 unit SQ BID [facility] Last Admin: 12/16/18 21:39 Dose: 5,000 unit Insulin Aspart (Novolog Vial Sliding Scale -) 1 vial SQ [facility]; Protocol Last Admin: 12/17/18 06:07 Dose: Not Given Isosorbide Mononitrate (Imdur -) 60 mg PO DAILY [facility] Last Admin: 12/16/18 09:33 Dose: 60 mg Metoprolol Tartrate (Lopressor -) 25 mg PO BID [facility] Last Admin: 12/16/18 21:39 Dose: 25 mg Rosuvastatin Calcium (Crestor -) 10 mg PO [facility] Last Admin: 12/16/18 21:39 Dose: 10 mg Senna (Senna -) 1 tab PO [facility] - Objective Vital Signs: Vital Signs Temperature 97.4 F L 12/17/18 10:22 Pulse Rate 64 12/17/18 10:22 Respiratory Rate 20 12/17/18 10:22 Blood Pressure 152/88 12/17/18 10:22 O2 Sat by Pulse Oximetry (%) 98 12/17/18 09:00 Constitutional: Yes: Well Nourished, Calm Eyes: Yes: WNL HENT: Yes: WNL Neck: Yes: WNL Cardiovascular: Yes: Regular Rate and Rhythm, S1, S2 Respiratory: Yes: Rales (few bibasilar rales) Gastrointestinal: Yes: Normal Bowel Sounds, Soft Extremities: Yes: WNL Edema: No Labs: CBC, BMP 12/14/18 06:05 12/17/18 06:45 Assessment/Plan Problem List - Problems (1) Dyspnea Code(s): R06.00 - DYSPNEA, UNSPECIFIED (2) Chest discomfort Code(s): R07.89 - OTHER CHEST PAIN (3) Lower extremity edema Code(s): R60.0 - LOCALIZED EDEMA (4) Acute on chronic congestive heart failure Code(s): I50.9 - HEART FAILURE, UNSPECIFIED Qualifiers: Heart failure type: systolic Qualified Code(s): I50.23 - Acute on chronic systolic (congestive) heart failure (5) Anemia Code(s): D64.9 - ANEMIA, UNSPECIFIED Qualifiers: Anemia type: iron deficiency (6) CHF (congestive heart failure) Code(s): I50.9 - HEART FAILURE, UNSPECIFIED Qualifiers: Heart failure type: diastolic (7) Diabetes Code(s): E11.9 - TYPE 2 DIABETES MELLITUS WITHOUT COMPLICATIONS Qualifiers: Diabetes mellitus type: type 2 Diabetes mellitus [facility] insulin use: with [facility] use Diabetes mellitus complication status: with unspecified complications PULMONARY HTN Assessment/Plan Lasix BID O2 as needed Daily weights Monitor I & O VTE prophylaxis f/u chest x-rays DR COREY
[2018-12-17] MEDS: HEPARIN NA (PORCINE) 5,000 UNITS/ML 1ML VIAL SQ SCH ×2 (11:26→22:26)
[2018-12-17] MEDS: METOPROLOL TARTRATE 25 MG TABLET (FP) PO SCH ×2 (11:26→22:26)
[2018-12-17] MEDS: FERROUS SO4 325 MG TABLET (FP) PO SCH ×2 (11:26→17:27)
[2018-12-17] MEDS: ASPIRIN COATED 81 MG TABLET.EC PO SCH (11:26)
[2018-12-17] MEDS: ISOSORBIDE MONONITRATE 60 MG TAB.SR.24H (FP) PO SCH (11:26)
[2018-12-17] MEDS: amLODIPine BESYLATE 5 MG TABLET (FP) PO SCH (11:26)
[2018-12-17] MEDS ORDERED: amLODIPine BESYLATE 2.5 MG TABLET (FP) PO SCH (12:50)
--- NOTE | 2018-12-17 12:50 | PN ---
Progress Note, Physician History of Present Illness: Pt seen and examined at bedside. She is awake and alert. She denies shortness of breath. - Current Medication List Current Medications: Active Medications Acetaminophen (Tylenol -) 650 mg PO Q6H PRN PRN Reason: PAIN LEVEL 7 - 10 Last Admin: 12/16/18 16:33 Dose: 650 mg Amlodipine Besylate (Norvasc -) 5 mg PO DAILY [facility] Last Admin: 12/17/18 11:26 Dose: 5 mg Aspirin (Ecotrin -) 81 mg PO DAILY [facility] Last Admin: 12/17/18 11:26 Dose: 81 mg Docusate Sodium (Colace -) 300 mg PO [facility] Ferrous Sulfate (Feosol -) 325 mg PO BIDWM [facility] Last Admin: 12/17/18 11:26 Dose: 325 mg Furosemide (Lasix -) 40 mg PO DAILY [facility] Heparin Sodium (Porcine) (Heparin -) 5,000 unit SQ BID [facility] Last Admin: 12/17/18 11:26 Dose: 5,000 unit Insulin Aspart (Novolog Vial Sliding Scale -) 1 vial SQ [facility]; Protocol Last Admin: 12/17/18 12:13 Dose: Not Given Isosorbide Mononitrate (Imdur -) 60 mg PO DAILY [facility] Last Admin: 12/17/18 11:26 Dose: 60 mg Metoprolol Tartrate (Lopressor -) 25 mg PO BID [facility] Last Admin: 12/17/18 11:26 Dose: 25 mg Rosuvastatin Calcium (Crestor -) 10 mg PO [facility] Last Admin: 12/16/18 21:39 Dose: 10 mg Senna (Senna -) 1 tab PO [facility] - Objective Vital Signs: Vital Signs Temperature 97.4 F L 12/17/18 10:22 Pulse Rate 64 12/17/18 10:22 Respiratory Rate 20 12/17/18 10:22 Blood Pressure 152/88 12/17/18 10:22 O2 Sat by Pulse Oximetry (%) 98 12/17/18 09:00 Constitutional: Yes: Calm Eyes: Yes: Conjunctiva Clear HENT: Yes: Atraumatic Cardiovascular: Yes: S1, S2 Respiratory: Yes: CTA Bilaterally Gastrointestinal: Yes: Normal Bowel Sounds, Soft Genitourinary: Yes: WNL Musculoskeletal: Yes: WNL Edema: Yes Edema: LLE: 1+, RLE: 1+ Neurological: Yes: Oriented Psychiatric: Yes: Oriented Labs: CBC, BMP 12/14/18 06:05 12/17/18 06:45 Problem List - Problems (1) KACI (acute kidney injury) Code(s): N17.9 - ACUTE KIDNEY FAILURE, UNSPECIFIED Assessment/Plan Current Medications Generic Name Dose Route Start Last Admin Trade Name Freq PRN Reason Stop Dose Admin Acetaminophen 650 mg 12/16/18 16:24 12/16/18 16:33 Tylenol - PO 650 mg Q6H PRN Administration PAIN LEVEL 7 - 10 Amlodipine Besylate 5 mg 12/13/18 10:00 12/17/18 11:26 Norvasc - PO 5 mg DAILY [facility] Administration Aspirin 81 mg 12/14/18 10:00 12/17/18 11:26 Ecotrin - PO 81 mg DAILY [facility] Administration Docusate Sodium 300 mg 12/17/18 22:00 Colace - PO HS [facility] Ferrous Sulfate 325 mg 12/15/18 17:30 12/17/18 11:26 Feosol - PO 325 mg BIDWM [facility] Administration Furosemide 40 mg 12/18/18 10:00 Lasix - PO DAILY [facility] Heparin Sodium (Porcine) 5,000 unit 12/16/18 22:00 12/17/18 11:26 Heparin - SQ 5,000 unit BID [facility] Administration Insulin Aspart 1 vial 12/13/18 22:00 12/17/18 12:13 Novolog Vial Sliding Scale - SQ Not Given ACHS [facility] Protocol Isosorbide Mononitrate 60 mg 12/14/18 13:00 12/17/18 11:26 Imdur - PO 60 mg DAILY [facility] Administration Metoprolol Tartrate 25 mg 12/14/18 09:00 12/17/18 11:26 Lopressor - PO 25 mg BID [facility] Administration Rosuvastatin Calcium 10 mg 12/14/18 22:00 12/16/18 21:39 Crestor - PO 10 mg HS [facility] Administration Senna 1 tab 12/17/18 22:00 Senna - PO HS [facility] Impression 1. KACI 2. anemia 3. proteinuria 4. pleural effusions 5. htn 6. dm 7. CHF Plan - spoke to cardio, there is no indication for asa, will stop it - kidney biopsy as outpt next week - follow up serologies - decrease lasix to daily - neg hydro on ultrasound - titrate down dose of norvasc
[2018-12-17 15:12] LABS: TOTAL PROTEIN, URINE 329.6 mg/dL (Not Estab.)
[2018-12-17] MEDS ORDERED: ISOSORBIDE MONONITRATE 30 MG TAB.SR.24H (FP) PO SCH (15:35)
--- NOTE | 2018-12-17 15:36 | PN ---
Progress Note, Physician Chief Complaint: Cardiology FU Telem NSR No SOB Less swelling. Dizziness History of Present Illness: 63 y/o female with past medical history IDDM and HTN, chf with EF 45% diagnosed in 2018. She presents to the ER with b/l leg numbness and chest pain. Pt described the pain as a tightness in the middle of her chest that is non radiating, intermittent and associated with dizziness. Drinking water made the pain better and exertion made it worse. 5/10 in severity. Pt denies any shortness of breath and endorsed being non compliant to her medications for a month and a half or so due to being sick and hospitalized. Echocardiogram 02/28/18 EF 45% lateral wall hypokinesis, mild to moderate MR. trop + to 0.13. EKG with new TWI laterally. No ALVIN. Likely demand 2/2 CHF Echocardiogram 12/15/18 EF 40-45% golbal hypokinesis. Elevated LA pressure. Moderate RV hypokinesis. Rt pleural effusion. Nephrotic range proteinuria. - Current Medication List Current Medications: Active Medications Acetaminophen (Tylenol -) 650 mg PO Q6H PRN PRN Reason: PAIN LEVEL 7 - 10 Last Admin: 12/16/18 16:33 Dose: 650 mg Amlodipine Besylate (Norvasc -) 2.5 mg PO DAILY [facility] Docusate Sodium (Colace -) 300 mg PO [facility] Ferrous Sulfate (Feosol -) 325 mg PO BIDWM [facility] Last Admin: 12/17/18 11:26 Dose: 325 mg Furosemide (Lasix -) 40 mg PO DAILY [facility] Heparin Sodium (Porcine) (Heparin -) 5,000 unit SQ BID [facility] Last Admin: 12/17/18 11:26 Dose: 5,000 unit Insulin Aspart (Novolog Vial Sliding Scale -) 1 vial SQ [facility]; Protocol Last Admin: 12/17/18 12:13 Dose: Not Given Isosorbide Mononitrate (Imdur -) 60 mg PO DAILY [facility] Last Admin: 12/17/18 11:26 Dose: 60 mg Metoprolol Tartrate (Lopressor -) 25 mg PO BID [facility] Last Admin: 12/17/18 11:26 Dose: 25 mg Rosuvastatin Calcium (Crestor -) 10 mg PO [facility] Last Admin: 12/16/18 21:39 Dose: 10 mg Senna (Senna -) 1 tab PO HS [facility] - Objective Vital Signs: Vital Signs Temperature 97.7 F 12/17/18 14:20 Pulse Rate 61 12/17/18 14:20 Respiratory Rate 20 12/17/18 14:20 Blood Pressure 140/74 12/17/18 14:20 O2 Sat by Pulse Oximetry (%) 98 12/17/18 09:00 Constitutional: Yes: Well Nourished, No Distress Eyes: Yes: Conjunctiva Clear HENT: Yes: Atraumatic, Normocephalic Neck: Yes: Supple, Trachea Midline Cardiovascular: Yes: Regular Rate and Rhythm, S1, S2. No: JVD Respiratory: Yes: Diminished (bases) Edema: Yes Edema: LLE: 2+, RLE: 2+ Labs: CBC, BMP 12/14/18 06:05 12/17/18 06:45 Problem List - Problems (1) KACI (acute kidney injury) Code(s): N17.9 - ACUTE KIDNEY FAILURE, UNSPECIFIED (2) Acute on chronic congestive heart failure Code(s): I50.9 - HEART FAILURE, UNSPECIFIED Qualifiers: Heart failure type: systolic Qualified Code(s): I50.23 - Acute on chronic systolic (congestive) heart failure Assessment/Plan 63 y/o female with past medical history IDDM and HTN, chf with EF 45% diagnosed in 2018. She presents to the ER with b/l leg numbness and chest pain. Pt described the pain as a tightness in the middle of her chest that is non radiating, intermittent and associated with dizziness. Drinking water made the pain better and exertion made it worse. 5/10 in severity. Pt denies any shortness of breath and endorsed being non compliant to her medications for a month and a half or so due to being sick and hospitalized. Echocardiogram EF 40-45% with global hypokinsesis and Mod RV hypokinesis. Plan mildly reduced EF, KACI and nephrotic range proteinurea -Declining weight due to diuresis. Improved volume status with mild Lext edema. -Stop ASA and Reduce Imdur 30mg qd -If orthostatic DC Amlodipine -Check orthostatic BP -Low dose lasix. -No cardiac contraindications to renal biopsy. -DC telemetry
[2018-12-17] MEDS ORDERED: SENNOSIDES 8.6MG TABLET (FP) PO SCH (22:00)
[2018-12-17] MEDS ORDERED: DOCUSATE SODIUM 100 MG CAPSULE (FP) PO SCH (22:00)
[2018-12-17] MEDS: ROSUVASTATIN CA 10 MG TABLET (FP) PO SCH (22:26)
[2018-12-18] MEDS: INSULIN SLIDING SCALE (NOVOLOG) 1 VIAL SQ SCH ×2 (06:10→12:00)
[2018-12-18] MEDS: FERROUS SO4 325 MG TABLET (FP) PO SCH (08:13)
[2018-12-18 08:52] LABS: CALCIUM 8.4 mg/dL (8.5-10.1); CREATININE 2.8 mg/dL (0.55-1.3)
[2018-12-18] MEDS ORDERED: FUROSEMIDE 40 MG TABLET (FP) PO SCH (10:00)
[2018-12-18] MEDS: HEPARIN NA (PORCINE) 5,000 UNITS/ML 1ML VIAL SQ SCH (10:11)
[2018-12-18] MEDS: METOPROLOL TARTRATE 25 MG TABLET (FP) PO SCH ×2 (10:52→12:19)
--- NOTE | 2018-12-18 11:13 | DS ---
Physical Examination Vital Signs: Vital Signs Temperature 97.4 F L 12/18/18 08:00 Pulse Rate 51 L 12/18/18 08:00 Respiratory Rate 18 12/18/18 09:00 Blood Pressure 149/89 12/18/18 08:00 O2 Sat by Pulse Oximetry (%) 96 12/18/18 09:00 Constitutional: Yes: No Distress Eyes: Yes: WNL HENT: Yes: WNL Neck: Yes: WNL Cardiovascular: Yes: Regular Rate and Rhythm Respiratory: Yes: WNL Gastrointestinal: Yes: WNL ...Rectal Exam: Yes: WNL Musculoskeletal: Yes: WNL Extremities: Yes: WNL Edema: Yes Edema: LLE: Trace, RLE: Trace Integumentary: Yes: WNL Wound/Incision: Yes: Clean/Dry Neurological: Yes: Numbness, Paresthesia, Pre-Existing Deficit ...Motor Strength: LLE, RLE Psychiatric: Yes: Other Labs: CBC, BMP 12/14/18 06:05 12/18/18 07:25 Discharge Summary Problems reviewed: Yes Reason For Visit: ACUTE KIDNEY INJURY, ELEVATED TROPONIN I LEVEL Current Active Problems KACI (acute kidney injury) (Acute) Chest discomfort (Acute) Diabetic nephropathy (Acute) Diabetic retinopathy associated with type 2 diabetes mellitus (Acute) Dyspnea (Acute) Elevated troponin (Acute) Fall (Acute) Lower extremity edema (Acute) Proteinuria (Acute) Procedures: Principal: CT HEAD Other Procedures: ECHO XRAYS Hospital Course: ADMITTED FOR RULE OUT CAD, WITH WORSENING RENAL FAILURE, WILL NEED STRESS TEST OUTPATIENT WHEN RENAL FUNCTION IMPROVES Plan of Treatment: IMDUR STARTED, SEE DR NAIDU IN 1 WEEK Goals: CARDIAC CATH OUTPATIENT WHEN RENAL FUNCTION IMPROVES, WILL NEED RENAL BIOPSY Condition: Guarded - Instructions Diet, Activity, Other Instructions: DO NOT TAKE ASPIRIN UNTIL AFTER RENAL BIOPSY WITH DR STORY SEE DR NAIDU IN 1 WEEK RENAL/DIABETIC LOW SALT DIET Referrals: Meghan Naidu MD [Primary Care Provider] - Taylor Story MD [Staff Physician] - Disposition: VNS/HOME HEALTH CARE - Home Medications Comprehensive Discharge Medication List: Ambulatory Orders Amlodipine Besylate [Norvasc -] 5 mg PO DAILY tablet 06/22/15 Insulin (Levemir) [Levemir Vial] 12 units SQ HS ml 06/22/15 Insulin (Levemir) [Levemir Vial] 15 units SQ AM ml 06/22/15 Multivitamins [Multivit ([facility] Formulary)] 1 tab PO DAILY tab 06/22/15 Ammonium Lactate Cream [Lac-Hydrin 12% Cream -] 1 applic TP DAILY #1 tube Ferrous Sulfate [Feosol] 325 mg PO DAILY #30 ud 03/05/18 Furosemide [Lasix -] 40 mg PO BID@0600,1400 #60 tablet 03/05/18 Hydrocortisone 1% Ointment [Hytone 1% Ointment -] 1 applic TP DAILY #1 tube 04/22 Pantoprazole Sodium [Protonix -] 40 mg PO BID #60 tablet.ec 03/05/18 Acetaminophen [Tylenol .Regular Strength -] 650 mg PO Q6H PRN tablet 12/18/18 Amlodipine Besylate [Norvasc -] 5 mg PO DAILY #30 tablet 12/18/18 Aspirin Coated [Ecotrin -] 81 mg PO DAILY #30 tablet.ec 12/18/18 Docusate Sodium [Colace -] 300 mg PO HS capsule 12/18/18 Furosemide [Lasix -] 40 mg PO BID@0600,1400 tablet 12/18/18 Furosemide [Lasix -] 40 mg PO DAILY tablet 12/18/18 Insulin Sliding Scale [Novolog Vial Sliding Scale -] 1 vial SQ ACHS units 12/18 Isosorbide Mononitrate [Imdur -] 30 mg PO DAILY #30 tab.sr.24h 12/18/18 Metoprolol Tartrate [Lopressor -] 25 mg PO BID #60 tablet 12/18/18 Rosuvastatin [Crestor -] 10 mg PO HS #30 tablet 12/18/18 Prescription Drug Monitoring Program (I-STOP) results: I-STOP not reviewed
--- NOTE | 2018-12-18 12:11 | PN ---
Progress Note (short form) - Note Progress Note: Resting in NAD. No CP or SOB. No acute events overnight. Intake & Output 12/15/18 12/16/18 12/17/18 12/18/18 23:59 23:59 23:59 23:59 Intake Total 800 690 Balance 800 690 Weight 160 lb 12.8 oz 158 lb 9.6 oz 161 lb 6.4 oz 158 lb 12.8 oz Last Vital Signs Temp Pulse Resp BP Pulse Ox 97.4 F L 51 L 18 149/89 96 12/18/18 08:00 12/18/18 08:00 12/18/18 09:00 12/18/18 08:00 12/18/18 09:00 Active Medications Acetaminophen (Tylenol -) 650 mg PO Q6H PRN PRN Reason: PAIN LEVEL 7 - 10 Last Admin: 12/16/18 16:33 Dose: 650 mg Amlodipine Besylate (Norvasc -) 2.5 mg PO DAILY [facility] Last Admin: 12/18/18 10:12 Dose: 2.5 mg Docusate Sodium (Colace -) 300 mg PO [facility] Last Admin: 12/17/18 22:26 Dose: 300 mg Ferrous Sulfate (Feosol -) 325 mg PO BIDWM [facility] Last Admin: 12/18/18 08:13 Dose: 325 mg Furosemide (Lasix -) 40 mg PO DAILY [facility] Last Admin: 12/18/18 10:11 Dose: 40 mg Heparin Sodium (Porcine) (Heparin -) 5,000 unit SQ BID [facility] Last Admin: 12/18/18 10:11 Dose: 5,000 unit Insulin Aspart (Novolog Vial Sliding Scale -) 1 vial SQ [facility]; Protocol Last Admin: 12/18/18 06:10 Dose: Not Given Isosorbide Mononitrate (Imdur -) 30 mg PO DAILY [facility] Last Admin: 12/18/18 10:12 Dose: 30 mg Metoprolol Tartrate (Lopressor -) 25 mg PO BID [facility] Last Admin: 12/18/18 10:52 Dose: Not Given Rosuvastatin Calcium (Crestor -) 10 mg PO [facility] Last Admin: 12/17/18 22:26 Dose: 10 mg Senna (Senna -) 1 tab PO [facility] Last Admin: 12/17/18 22:26 Dose: 1 tab Constitutional: Yes: No Distress, Obese Eyes: Yes: Conjunctiva Clear, EOM Intact HENT: Yes: Atraumatic, Normocephalic Neck: Yes: Supple, Trachea Midline Cardiovascular: Yes: Regular Rate and Rhythm Respiratory: Yes: Cough, Diminished, Rales, Rhonchi. No: Accessory Muscle Use, Stridor, Wheezes ...Inspection: Yes: WNL ...Clubbing: No Gastrointestinal: Yes: Normal Bowel Sounds, Soft, Abdomen, Obese Renal/: Yes: WNL Musculoskeletal: Yes: WNL Extremities: Yes: WNL Edema: Yes Peripheral Pulses WNL: Yes Integumentary: Yes: WNL Neurological: Yes: WNL, Alert, Oriented ...Motor Strength: WNL Psychiatric: Yes: WNL, Alert, Oriented Labs: Laboratory Results - last 24 hr 12/15/18 12/15/18 12/17/18 05:15 13:00 12:12 Sodium Potassium Chloride Carbon Dioxide Anion Gap BUN Creatinine Est GFR (CKD-EPI)AfAm Est GFR (CKD-EPI)NonAf POC Glucometer 143 Random Glucose Calcium Hnnhi-2-Nhukmzyzd (%) 3.6 Dvicc-1-Rzlrvrtpd (%) 7.0 Beta Globulins (%) 12.5 Gamma Globulins (%) 14.0 M-Donovan % Not observed Urine Total Protein 329.6 Urine PEP Interpret 63.0 HCV Quantitation Hcv not detected HCV RNA log copies/mL TNP Ref Test Comments 12/17/18 12/17/18 12/18/18 16:31 22:25 06:09 Sodium Potassium Chloride Carbon Dioxide Anion Gap BUN Creatinine Est GFR (CKD-EPI)AfAm Est GFR (CKD-EPI)NonAf POC Glucometer 155 205 167 Random Glucose Calcium Gcuek-9-Uwtxvraxh (%) Tcepd-5-Yboeqjgsm (%) Beta Globulins (%) Gamma Globulins (%) M-Donovan % Urine Total Protein Urine PEP Interpret HCV Quantitation HCV RNA log copies/mL Ref Test Comments 12/18/18 12/18/18 07:25 11:33 Sodium 139 Potassium 4.0 Chloride 107 Carbon Dioxide 23 Anion Gap 10 BUN 55.0 H Creatinine 2.8 H Est GFR (CKD-EPI)AfAm 20.14 Est GFR (CKD-EPI)NonAf 17.38 POC Glucometer 178 Random Glucose 173 H Calcium 8.4 L Henuv-6-Rwnwgvkuw (%) Hsrkk-6-Wtobzlnqb (%) Beta Globulins (%) Gamma Globulins (%) M-Donovan % Urine Total Protein Urine PEP Interpret HCV Quantitation HCV RNA log copies/mL Ref Test Comments Problem List - Problems (1) Dyspnea Code(s): R06.00 - DYSPNEA, UNSPECIFIED (2) Chest discomfort Code(s): R07.89 - OTHER CHEST PAIN (3) Lower extremity edema Code(s): R60.0 - LOCALIZED EDEMA (4) Acute on chronic congestive heart failure Code(s): I50.9 - HEART FAILURE, UNSPECIFIED Qualifiers: Heart failure type: systolic Qualified Code(s): I50.23 - Acute on chronic systolic (congestive) heart failure (5) Anemia Code(s): D64.9 - ANEMIA, UNSPECIFIED Qualifiers: Anemia type: iron deficiency (6) CHF (congestive heart failure) Code(s): I50.9 - HEART FAILURE, UNSPECIFIED Qualifiers: Heart failure type: diastolic (7) Diabetes Code(s): E11.9 - TYPE 2 DIABETES MELLITUS WITHOUT COMPLICATIONS Qualifiers: Diabetes mellitus type: type 2 Diabetes mellitus intermission coordinator insulin use: with retirement use Diabetes mellitus complication status: with unspecified complications Assessment/Plan Lasix O2 as needed Daily weights No smoking DC planning Dr Mace Problem List - Problems (1) Dyspnea Code(s): R06.00 - DYSPNEA, UNSPECIFIED (2) Chest discomfort Code(s): R07.89 - OTHER CHEST PAIN (3) Lower extremity edema Code(s): R60.0 - LOCALIZED EDEMA (4) Acute on chronic congestive heart failure Code(s): I50.9 - HEART FAILURE, UNSPECIFIED Qualifiers: Heart failure type: systolic Qualified Code(s): I50.23 - Acute on chronic systolic (congestive) heart failure (5) Anemia Code(s): D64.9 - ANEMIA, UNSPECIFIED Qualifiers: Anemia type: iron deficiency (6) CHF (congestive heart failure) Code(s): I50.9 - HEART FAILURE, UNSPECIFIED Qualifiers: Heart failure type: diastolic (7) Diabetes Code(s): E11.9 - TYPE 2 DIABETES MELLITUS WITHOUT COMPLICATIONS Qualifiers: Diabetes mellitus type: type 2 Diabetes mellitus intermission coordinator insulin use: with intermission coordinator use Diabetes mellitus complication status: with unspecified complications
--- NOTE | 2018-12-18 12:34 | PN ---
Progress Note, Physician History of Present Illness: Pt seen and examined at bedside. She is awake and alert. She feels that her edema is improving. - Current Medication List Current Medications: Active Medications Acetaminophen (Tylenol -) 650 mg PO Q6H PRN PRN Reason: PAIN LEVEL 7 - 10 Last Admin: 12/16/18 16:33 Dose: 650 mg Amlodipine Besylate (Norvasc -) 2.5 mg PO DAILY [facility] Last Admin: 12/18/18 10:12 Dose: 2.5 mg Docusate Sodium (Colace -) 300 mg PO [facility] Last Admin: 12/17/18 22:26 Dose: 300 mg Ferrous Sulfate ([facility]ol -) [facility] Last Admin: 12/18/18 08:13 Dose: 325 mg Furosemide (Lasix -) 40 mg PO DAILY [facility] Last Admin: 12/18/18 10:11 Dose: 40 mg Heparin Sodium (Porcine) (Heparin -) 5,000 unit SQ BID [facility] Last Admin: 12/18/18 10:11 Dose: 5,000 unit Insulin Aspart (Novolog Vial Sliding Scale -) 1 vial SQ [facility]; Protocol Last Admin: 12/18/18 06:10 Dose: Not Given Isosorbide Mononitrate (Imdur -) 30 mg PO DAILY [facility] Last Admin: 12/18/18 10:12 Dose: 30 mg Metoprolol Tartrate (Lopressor -) 25 mg PO BID [facility] Last Admin: 12/18/18 12:19 Dose: 25 mg Rosuvastatin Calcium (Crestor -) 10 mg PO [facility] Last Admin: 12/17/18 22:26 Dose: 10 mg Senna (Senna -) 1 tab PO [facility] Last Admin: 12/17/18 22:26 Dose: 1 tab - Objective Vital Signs: Vital Signs Temperature 97.4 F L 12/18/18 08:00 Pulse Rate 51 L 12/18/18 08:00 Respiratory Rate 18 12/18/18 09:00 Blood Pressure 149/89 12/18/18 08:00 O2 Sat by Pulse Oximetry (%) 96 12/18/18 09:00 Constitutional: Yes: Calm Eyes: Yes: Conjunctiva Clear HENT: Yes: Atraumatic Cardiovascular: Yes: S1, S2 Respiratory: Yes: WNL Gastrointestinal: Yes: Soft Genitourinary: Yes: WNL Musculoskeletal: Yes: WNL Edema: Yes Edema: LLE: 1+, RLE: 1+ Neurological: Yes: Oriented Psychiatric: Yes: Oriented Labs: CBC, BMP 12/14/18 06:05 12/18/18 07:25 Problem List - Problems (1) KACI (acute kidney injury) Code(s): N17.9 - ACUTE KIDNEY FAILURE, UNSPECIFIED Assessment/Plan Current Medications Generic Name Dose Route Start Last Admin Trade Name Freq PRN Reason Stop Dose Admin Acetaminophen 650 mg 12/16/18 16:24 12/16/18 16:33 Tylenol - PO 650 mg Q6H PRN Administration PAIN LEVEL 7 - 10 Amlodipine Besylate 2.5 mg 12/17/18 12:50 12/18/18 10:12 Norvasc - PO 2.5 mg DAILY SUSAN Administration Docusate Sodium 300 mg 12/17/18 22:00 12/17/18 22:26 Colace - PO 300 mg HS SUSAN Administration Ferrous Sulfate 325 mg 12/15/18 17:30 12/18/18 08:13 Feosol - PO 325 mg BIDWM SUSAN Administration Furosemide 40 mg 12/18/18 10:00 12/18/18 10:11 Lasix - PO 40 mg DAILY SUSAN Administration Heparin Sodium (Porcine) 5,000 unit 12/16/18 22:00 12/18/18 10:11 Heparin - SQ 5,000 unit BID SUSAN Administration Insulin Aspart 1 vial 12/13/18 22:00 12/18/18 06:10 Novolog Vial Sliding Scale - SQ Not Given ACHS [facility] Protocol Isosorbide Mononitrate 30 mg 12/17/18 15:35 12/18/18 10:12 Imdur - PO 30 mg DAILY [facility]USAN Administration Metoprolol Tartrate 25 mg 12/14/18 09:00 12/18/18 12:19 Lopressor - PO 25 mg BID SUSAN Administration Rosuvastatin Calcium 10 mg 12/14/18 22:00 12/17/18 22:26 Crestor - PO 10 mg HS SUSAN Administration Senna 1 tab 12/17/18 22:00 12/17/18 22:26 Senna - PO 1 tab HS SUSAN Administration Laboratory Tests 12/15/18 12/16/18 12/17/18 05:15 10:10 06:45 IDRIS Screen Negative c-ANCA Pending Proteinase 3 (PR3) Pending p-ANCA Pending Atypical p-ANCA Pending Myeloperoxidase Ab Pending Double Strand DNA Ab <1 Glomerular Base Memb Ab Pending Impression 1. KACI 2. anemia 3. proteinuria 4. pleural effusions 5. htn 6. dm 7. CHF Plan - asa stopped - called IR to set up kidney biopsy next week - discussed plan with pt and primary team - follow serologies - cont lasix - neg hydro on ultrasound
--- NOTE | 2018-12-18 14:50 | PN ---
Progress Note, Physician Chief Complaint: Cardiology FU No SOB Less swelling. No dizziness History of Present Illness: 63 y/o female with past medical history IDDM and HTN, chf with EF 45% diagnosed in 2018. She presents to the ER with b/l leg numbness and chest pain. Pt described the pain as a tightness in the middle of her chest that is non radiating, intermittent and associated with dizziness. Drinking water made the pain better and exertion made it worse. 5/10 in severity. Pt denies any shortness of breath and endorsed being non compliant to her medications for a month and a half or so due to being sick and hospitalized. Echocardiogram 02/28/18 EF 45% lateral wall hypokinesis, mild to moderate MR. trop + to 0.13. EKG with new TWI laterally. No ALVIN. Likely demand 2/2 CHF Echocardiogram 12/15/18 EF 40-45% golbal hypokinesis. Elevated LA pressure. Moderate RV hypokinesis. Rt pleural effusion. Nephrotic range proteinuria. - Current Medication List Current Medications: Active Medications Acetaminophen (Tylenol -) 650 mg PO Q6H PRN PRN Reason: PAIN LEVEL 7 - 10 Last Admin: 12/16/18 16:33 Dose: 650 mg Amlodipine Besylate (Norvasc -) 2.5 mg PO DAILY [facility] Last Admin: 12/18/18 10:12 Dose: 2.5 mg Docusate Sodium (Colace -) 300 mg PO HS [facility] Last Admin: 12/17/18 22:26 Dose: 300 mg Ferrous Sulfate (Feosol -) 325 mg PO BIDWM [facility] Last Admin: 12/18/18 08:13 Dose: 325 mg Furosemide (Lasix -) 40 mg PO DAILY [facility] Last Admin: 12/18/18 10:11 Dose: 40 mg Heparin Sodium (Porcine) (Heparin -) 5,000 unit SQ BID [facility] Last Admin: 12/18/18 10:11 Dose: 5,000 unit Insulin Aspart (Novolog Vial Sliding Scale -) 1 vial SQ ACHS [facility]; Protocol Last Admin: 12/18/18 06:10 Dose: Not Given Isosorbide Mononitrate (Imdur -) 30 mg PO DAILY [facility] Last Admin: 12/18/18 10:12 Dose: 30 mg Metoprolol Tartrate (Lopressor -) 25 mg PO BID [facility] Last Admin: 12/18/18 12:19 Dose: 25 mg Rosuvastatin Calcium (Crestor -) 10 mg PO [facility] Last Admin: 12/17/18 22:26 Dose: 10 mg Senna (Senna -) 1 tab PO [facility] Last Admin: 12/17/18 22:26 Dose: 1 tab - Objective Vital Signs: Vital Signs Temperature 97.4 F L 12/18/18 08:00 Pulse Rate 51 L 12/18/18 08:00 Respiratory Rate 18 12/18/18 09:00 Blood Pressure 149/89 12/18/18 08:00 O2 Sat by Pulse Oximetry (%) 96 12/18/18 09:00 Constitutional: Yes: Well Nourished, No Distress Eyes: Yes: Conjunctiva Clear, EOM Intact HENT: Yes: Atraumatic, Normocephalic Neck: Yes: Supple, Trachea Midline Cardiovascular: Yes: Regular Rate and Rhythm, S1, S2. No: JVD Respiratory: Yes: Regular, CTA Bilaterally Gastrointestinal: Yes: Normal Bowel Sounds Edema: Yes Edema: LLE: 1+, RLE: 1+ Labs: CBC, BMP 12/14/18 06:05 12/18/18 07:25 Problem List - Problems (1) KACI (acute kidney injury) Code(s): N17.9 - ACUTE KIDNEY FAILURE, UNSPECIFIED (2) Acute on chronic congestive heart failure Code(s): I50.9 - HEART FAILURE, UNSPECIFIED Qualifiers: Heart failure type: systolic Qualified Code(s): I50.23 - Acute on chronic systolic (congestive) heart failure Assessment/Plan 63 y/o female with past medical history IDDM and HTN, chf with EF 45% diagnosed in 2018. She presents to the ER with b/l leg numbness and chest pain. Pt described the pain as a tightness in the middle of her chest that is non radiating, intermittent and associated with dizziness. Drinking water made the pain better and exertion made it worse. 5/10 in severity. Pt denies any shortness of breath and endorsed being non compliant to her medications for a month and a half or so due to being sick and hospitalized. Echocardiogram EF 40-45% with global hypokinsesis and Mod RV hypokinesis. Plan mildly reduced EF, KACI and nephrotic range proteinurea -No further CP -BP reasonable -Low dose lasix. -No cardiac contraindications to renal biopsy. -DC planning Will see as needed.
[2018-12-18 15:29] VITALS: BP 143/78; PULSE 56; TEMP 98
[2018-12-18 16:07] LABS: ATYPICAL pANCA <1:20 titer (Neg:<1:20); C-ANCA <1:20 titer (Neg:<1:20)
== END 2018-12-18 18:25 | disposition home health service (06) | DRG 682 ==
LOC: JER 15:23 → JERBED 19:35 → J4W 12-14 18:31
PROVIDERS: ADMIT Internal Medicine; ATTEND Family Medicine
DX: N17.9 Acute kidney failure, unspecified (principal); I50.23 Acute on chronic systolic (congestive) heart failure; E78.5 Hyperlipidemia, unspecified; K58.9 Irritable bowel syndrome, unspecified; R79.89 Other specified abnormal findings of blood chemistry; I11.0 Hypertensive heart disease with heart failure; E11.319 Type 2 diabetes mellitus with unspecified diabetic retinopathy without macular edema; E11.21 Type 2 diabetes mellitus with diabetic nephropathy; E11.59 Type 2 diabetes mellitus with other circulatory complications; E66.9 Obesity, unspecified; Z68.30 Body mass index [BMI] 30.0-30.9, adult; W18.39XA Other fall on same level, initial encounter; R60.0 Localized edema; R80.9 Proteinuria, unspecified; D50.9 Iron deficiency anemia, unspecified; Z91.11 Patient's noncompliance with dietary regimen; Z91.14 Patient's other noncompliance with medication regimen; Y92.230 Patient room in hospital as the place of occurrence of the external cause
CPT/HCPCS: 36415; 70450-TC; 71045-TC-FY; 76775-TC; 80048; 80053; 80061; 81003; 82550; 82553; 82565; 82570; 82962; 83036; 83516; 83520; 83540; 83550; 83721; 83735; 83880; 84156; 84157; 84300; 84443; 84484; 84540; 85025; 85027; 86038; 86225; 86256; 86704; 86705; 86706; 86707; 86850; 86900; 86901; 87086; 87522; 93005; 93010; 93306-TC; 97116-GP; 97161-GP; 99285-25; J1644

== ENCOUNTER 2018-12-21 15:38 | Inpatient (IN) | payer BC ==
--- NOTE | 2018-12-21 15:58 | PDOC ---
Attending Attestation - Resident Resident Name: [email or web address] - HPI HPI: 12/21/18 16:28 Pt presents to the ED complaining of increasing bilateral leg edema, leg numbness and difficultly moving secondary to worsening edema. Extensive history as described by resident note, has not been taking lasix since discharge for unknown reasons. Complains on only minimal shortness of breath. Family friend who is with the patient notes that there is no heat in her appartment. - Physicial Exam PE: 12/21/18 16:31 Agree with resident exam. Patient is alert and oriented x 3. She is bradycardic but normotensive. +3 pitting edema to knees bilaterally. - Medical Decision Making 12/21/18 16:32 Pt presents to the ED with hypothermia, bradycardia and edema. Differential includes CHF, sepsis, less likely myxedema, adrenal insufficiency. Will check labs, cXR and UA, blood cultures and reassess.
[2018-12-21 16:36] LABS: BASO % 1.5 % (0-2.0); HEMATOCRIT 30.6 % (32.4-45.2); HEMOGLOBIN 9.8 GM/dL (10.7-15.3); LYMPH % 10.4 % (8-40); MCH 26.1 pg (25.7-33.7); MCHC 32.1 g/dl (32.0-36.0); MEAN CELL VOLUME 81.3 fl (80-96); MEAN PLT VOLUME 8.1 fl (7.5-11.1); MONO % 6.5 % (3.8-10.2); NEUT % 79.6 % (42.8-82.8); PLATELET COUNT 219 K/MM3 (134-434); RBC 3.76 M/mm3 (3.60-5.2); RDW 21.1 % (11.6-15.6); WHITE BLOOD COUNT 4.7 K/mm3 (4.0-10.0)
[2018-12-21 16:37] LABS: VENOUS PC02 45.7 mmHg (38-52); VENOUS PH 7.29 (7.31-7.41)
[2018-12-21 16:38] LABS: VENOUS PO2 < 49 mmHg (28-48)
--- NOTE | 2018-12-21 16:51 | PDOC ---
History of Present Illness - General Chief Complaint: Edema Stated Complaint: NUMBENESS Time Seen by Provider: 12/21/18 15:48 History Source: Patient Exam Limitations: No Limitations - History of Present Illness Initial Comments: 12/21/18 16:51 Corinna Hunt is a 63F with PMH CHF, HTN, HLD, DM presenting with hypothermia and worsening BLE edema. Patient recently discharged from [facility] 2/2 CHF exacerbation and worsening renal failure, says that she was scheduled for renal biopsy this week and was told to not take any of her ASA. Per patient's best friend at bedside who is highly involved in her care, friend has been cooking and monitoring the patient over the last week after she as discharged because patient has no other family to care for her. Patient's is in rehab at [facility] and is not home. Today friend visited and noticed that patient had worsening leg swelling and was confused, very cold and weak, notes that the house did not have any heating, called EMS to bring patient back to [facility]. EMS notes rectal temp 91F. Patient states that she was never given Lasix when discharged last visit and has not taken it. Denies any chest pain, SOB, numbness/tingling in legs. Patient denies RAE, dizziness, fever, chills, N/V/C/D, urinary symptoms. Says that her last hospitalization was due to her not taking any of her medications as she was taking care of her sick and ignoring her own health, but this time she did not have the medication she needed. Past History - Past Medical History Allergies/Adverse Reactions: Allergies Allergy/AdvReac Type Severity Reaction Status Date / Time No Known Allergies Allergy Verified 12/21/18 15:44 Home Medications: Ambulatory Orders Amlodipine Besylate [Norvasc -] 5 mg PO DAILY tablet 06/22/15 Insulin (Levemir) [Levemir Vial] 12 units SQ HS ml 06/22/15 Insulin (Levemir) [Levemir Vial] 15 units SQ AM ml 06/22/15 Multivitamins [Multivit ([facility] Formulary)] 1 tab PO DAILY tab 06/22/15 Ammonium Lactate Cream [Lac-Hydrin 12% Cream -] 1 applic TP DAILY #1 tube Ferrous Sulfate [Feosol] 325 mg PO DAILY #30 ud 03/05/18 Hydrocortisone 1% Ointment [Hytone 1% Ointment -] 1 applic TP DAILY #1 tube 04/22 Pantoprazole Sodium [Protonix -] 40 mg PO BID #60 tablet.ec 03/05/18 Acetaminophen [Tylenol .Regular Strength -] 650 mg PO Q6H PRN tablet 12/18/18 Docusate Sodium [Colace -] 300 mg PO HS capsule 12/18/18 Furosemide [Lasix -] 40 mg PO BID@0600,1400 tablet 12/18/18 Insulin Sliding Scale [Novolog Vial Sliding Scale -] 1 vial SQ ACHS units 12/18 Isosorbide Mononitrate [Imdur -] 30 mg PO DAILY #30 tab.sr.24h 12/18/18 Metoprolol Tartrate [Lopressor -] 25 mg PO BID #60 tablet 12/18/18 Rosuvastatin [Crestor -] 10 mg PO HS #30 tablet 12/18/18 Anemia: No Asthma: No Cancer: No Cardiac Disorders: Yes (Chest pain) CVA: No COPD: No CHF: Yes DVT: No Dementia: No Diabetes: Yes GI Disorders: Yes (IBS) Disorders: Yes (KACI) HTN: Yes Hypercholesterolemia: No Liver Disease: No Seizures: No Thyroid Disease: No - Surgical History Cardiac Surgery: No Lung Surgery: No Orthopedic Surgery: Yes (Right foot surgery) - Immunization History Immunization Up to Date: Yes - Psycho Social/Smoking Cessation Hx Smoking History: Unknown if ever smoked Have you smoked in the past 12 months: No Hx Alcohol Use: No Drug/Substance Use Hx: No Substance Use Type: None Hx Substance Use Treatment: No Review of Systems - Review of Systems Able to Perform ROS?: Yes Constitutional: Yes: Chills, Weakness. No: Diaphoresis, Fever, Loss of Appetite HEENTM: No: Blurred Vision, Recent change in vision, Throat Pain, Throat Swelling, Difficulty Swallowing Respiratory: No: Cough, Shortness of Breath, SOB at Rest, Productive cough Cardiac (ROS): Yes: Edema. No: Chest Pain, Irregular Heart Rate, Lightheadedness, Palpitations, Syncope ABD/GI: Yes: Poor Appetite, Poor Fluid Intake. No: Constipated, Diarrhea, Nausea, Vomiting : No: Symptoms Reported Musculoskeletal: No: Symptoms Reported Integumentary: No: Symptoms Reported Neurological: No: Symptoms reported Endocrine: Yes: Intolerance to Cold, Change in Weight Hematologic/Lymphatic: No: Symptoms Reported All Other Systems: Reviewed and Negative *Physical Exam - Vital Signs Last Vital Signs Temp Pulse Resp BP Pulse Ox 91.8 F L 48 L 20 156/83 98 12/21/18 16:05 12/21/18 16:34 12/21/18 16:34 12/21/18 16:34 12/21/18 16:34 - Physical Exam General Appearance: Yes: Nourished, Appropriately Dressed, Other (thni- appearing white female, appears stated age, resting supine in bed with multiple blankets, speaking in complete sentences with normal reasoning). No: Apparent Distress HEENT: positive: EOMI, DOMINIQUE, Symmetrical, Pharynx Normal. negative: Scleral Icterus (R), Scleral Icterus (L), Muffled/Hoarse voice, Pharyngeal Erythema, Tonsillar Exudate, Hearing Decreased Neck: positive: Trachea midline, Supple. negative: Tender, Rigid, Lymphadenopathy (R), Lymphadenopathy (L) Respiratory/Chest: positive: Lungs Clear, Normal Breath Sounds. negative: Chest Tender, Respiratory Distress, Accessory Muscle Use, Decreased Breath Sounds, Crackles, Rales, Rhonchi, Wheezing Cardiovascular: positive: Regular Rhythm, Edema (BLE 2+ pitting edema), Bradycardia Gastrointestinal/Abdominal: positive: Normal Bowel Sounds, Flat, Soft. negative : Pulsatile Mass, Protuberent, Guarding, Rebound, Hernia Musculoskeletal: negative: Normal Inspection, CVA Tenderness Extremity: positive: Normal Capillary Refill, Normal Inspection, Normal Range of Motion, Pelvis Stable, Pedal Edema (2+ BLE). negative: Tender Integumentary: positive: Dry, Pale, Cold. negative: Clammy, Diaphoresis, Petechiae, Rash Neurologic: positive: Fully Oriented, Alert, Normal Mood/Affect, Responsive. negative: Normal Response (sleepy), Confused, Disoriented ED Treatment Course - LABORATORY CBC & Chemistry Diagram: 12/23/18 07:37 12/23/18 07:37 - ADDITIONAL ORDERS Additional order review: Laboratory Results 12/21/18 12/21/18 16:20 16:00 VBG pH 7.29 L POC VBG pCO2 45.7 POC VBG pO2 < 49 H VBG HCO3 21.3 L VBG O2 Sat (Autumn) 58.2 L VBG Base Excess -4.5 L POC Glucometer 157 12/21/18 12/21/18 16:20 16:00 RBC 3.76 MCV 81.3 MCHC 32.1 RDW 21.1 H MPV 8.1 Neutrophils % 79.6 Lymphocytes % 10.4 Monocytes % 6.5 Eosinophils % 2.0 Basophils % 1.5 POC Glucometer 157 - RADIOLOGY Radiology Studies Ordered: Category Date Time Status CHEST X-RAY PORTABLE* [RAD] Stat Radiology 12/21/18 16:08 Ordered Medical Decision Making - Medical Decision Making 12/21/18 16:51 Corinna Hunt is a 63F with PMH CHF, HTN, HLD, DM presenting with hypothermia and worsening BLE edema. On arrival, patient is A/O x3 with last rectal temp hypothermic to 91F, has BLE pitting edema, no difficulty breathing, known history of CHF exacerbation. Hypothermia immediately raising concern for sepsis, ordered sepsis order set and repeat VS, ECG, and BGM. Patient denies any history of thyroid issues, but hypothermia and BLE edema concerning for myxedema, getting TSH + Free T3/T4 to evaluate. Per patient's friend at bedside, no LOC or gross confusion, but is slower to respond and seems dazed. BGM 157, hypoglycemia unlikely to be etiology of mild confusion. Placed warm blankets on patient and called for [employer]rin[employer] Hugger for external rewarming. 12/21/18 17:40 Labs notable for: BNP 03374 TSH WNL Cr 2.6, elevated from 2.0 at start of previous admission but down from 2.9 at peak of last admission. 12/21/18 18:26 ECG shows sinus bradycardia HR 48, QTc 468, no J point elevations. Repeat rectal temp 93F, improved from arrival. Patient in no acute distress,no change in mental status. CXR reveals bilateral pleural effusions/atelectasis stable since last CXR . Patient requires inpatient admission for diuresis given CHF exacerbation. No evidence of worsening pulmonary edema or respiratory distress/hypoxia on exam, but BLE 2+ edema from toes to thighs and BNP [id number]. Requires further rewarming for core temp goal 98F. 12/21/18 18:56 Signed out to admitting hospitalist Dr. Avila for Med-Surg. Discharge - Discharge Information Problems reviewed: Yes Clinical Impression/Diagnosis: Hypothermia due to cold environment, KACI (acute kidney injury) CHF exacerbation Qualifiers: Heart failure type: systolic Qualified Code(s): I50.23 - Acute on chronic systolic (congestive) heart failure Condition: Improved - Follow up/Referral - Patient Discharge Instructions - Post Discharge Activity
[2018-12-21 17:02] LABS: INR 0.98 (0.83-1.09); PROTHROMBIN TIME (PATIENT) 11.6 SEC (9.7-13.0)
[2018-12-21 17:05] LABS: ACTIVATED PTT 34.6 SECONDS (25.2-36.5)
[2018-12-21 17:11] LABS: ALBUMIN 2.7 g/dl (3.4-5.0); BILIRUBIN,TOTAL 0.3 mg/dL (0.2-1); BLOOD UREA NITROGEN 64.4 mg/dL (7-18); CALCIUM 8.6 mg/dL (8.5-10.1); CREATININE 2.6 mg/dL (0.55-1.3); N-TERMINAL BNP 21004.1 pg/ml (5-125); TOT PROT 6.6 g/dl (6.4-8.2)
[2018-12-21] MEDS ORDERED: ACETAMINOPHEN 1000 MG/100 ML VIAL (NON FORMULARY) IVPB ONE (17:53)
[2018-12-21] MEDS ORDERED: ACETAMINOPHEN INJECTION 100 ML IVPB ONE (17:57)
--- NOTE | 2018-12-21 19:59 | HP ---
Admitting History and Physical - Primary Care Physician PCP: Dr. Naidu - Admission Chief Complaint: B/L LE Edema, Chills History of Present Illness: 63 year old female with PMH of CHF, HTN, HLD, DM, IBS, GERD, Anemia arrived to ED for evaluation of worsening b/l LE edema +2/3, Chills, minimal SOB. As per patient she was never given Lasix when discharged last visit, patient has been noncompliant with medication since discharge. As per ED note according to family friend there is no heat in the apartment. Patient denies CP, Dizziness, headache, N/V,C/D, no urinary symptoms. Patient was recently discharged 12/18 from [facility] for elevated troponin, CHF exacerbation, and worsening renal failure, saw nephrology last visit, ? needed renal biopsy, and ? stress test as outpatient rule out CAD. History Source: Patient Limitations to Obtaining History: No Limitations - Past Medical History Cardiovascular: Yes: CHF, HTN, Hyperlipdemia Gastrointestinal: Yes: Constipation, GERD Heme/Onc: Yes: Anemia Endocrine: Yes: Diabetes Mellitus (DM II) - Past Surgical History Additional Past Surgical History: Right foot surgery - Smoking History Smoking history: Never smoked Have you smoked in the past 12 months: No - Alcohol/Substance Use Hx Alcohol Use: No History of Substance Use: reports: None - Social History Usual Living Arrangement: Yes: Alone (spouse at assisted at this time) ADL: Independent Occupation: Unemployed History of Recent Travel: No Home Medications - Allergies Allergies/Adverse Reactions: Allergies Allergy/AdvReac Type Severity Reaction Status Date / Time No Known Allergies Allergy Verified 12/21/18 15:44 - Home Medications Home Medications: Ambulatory Orders Amlodipine Besylate [Norvasc -] 5 mg PO DAILY tablet 06/22/15 Insulin (Levemir) [Levemir Vial] 12 units SQ HS ml 06/22/15 Insulin (Levemir) [Levemir Vial] 15 units SQ AM ml 06/22/15 Multivitamins [Multivit ([facility] Formulary)] 1 tab PO DAILY tab 06/22/15 Ammonium Lactate Cream [Lac-Hydrin 12% Cream -] 1 applic TP DAILY #1 tube Ferrous Sulfate [Feosol] 325 mg PO DAILY #30 ud 03/05/18 Hydrocortisone 1% Ointment [Hytone 1% Ointment -] 1 applic TP DAILY #1 tube 04/22 Pantoprazole Sodium [Protonix -] 40 mg PO BID #60 tablet.ec 03/05/18 Acetaminophen [Tylenol .Regular Strength -] 650 mg PO Q6H PRN tablet 12/18/18 Docusate Sodium [Colace -] 300 mg PO HS capsule 12/18/18 Furosemide [Lasix -] 40 mg PO BID@0600,1400 tablet 12/18/18 Insulin Sliding Scale [Novolog Vial Sliding Scale -] 1 vial SQ ACHS units 12/18 Isosorbide Mononitrate [Imdur -] 30 mg PO DAILY #30 tab.sr.24h 12/18/18 Metoprolol Tartrate [Lopressor -] 25 mg PO BID #60 tablet 12/18/18 Rosuvastatin [Crestor -] 10 mg PO HS #30 tablet 12/18/18 Family Medical History Family History: Unable to Obtain, Denies Review of Systems - Review of Systems Constitutional: reports: Chills Eyes: reports: No Symptoms HENT: reports: No Symptoms Neck: reports: No Symptoms Cardiovascular: reports: No Symptoms, Edema (B/L LE edema 2/3+) Respiratory: reports: SOB Gastrointestinal: reports: No Symptoms Genitourinary: reports: No Symptoms Breasts: reports: No Symptoms Reported Musculoskeletal: reports: Extremity Pain (B/L LE tenderness, pain edema +2/3) Integumentary: reports: No Symptoms Neurological: reports: No Symptoms Endocrine: reports: No Symptoms Hematology/Lymphatic: reports: No Symptoms Psychiatric: reports: No Symptoms Physical Examination Vital Signs: Vital Signs Temperature 93.2 F L 12/21/18 17:49 Pulse Rate 56 L 12/21/18 19:07 Respiratory Rate 14 12/21/18 19:07 Blood Pressure 137/69 12/21/18 19:07 O2 Sat by Pulse Oximetry (%) 99 12/21/18 19:07 Constitutional: Yes: No Distress, Calm Eyes: Yes: Conjunctiva Clear, EOM Intact HENT: Yes: Atraumatic, Normocephalic Neck: Yes: Supple, Trachea Midline Cardiovascular: Yes: Regular Rate and Rhythm Respiratory: Yes: Regular, CTA Bilaterally Gastrointestinal: Yes: Normal Bowel Sounds, Soft Musculoskeletal: Yes: WNL Extremities: Yes: WNL Edema: Yes Edema: LLE: 2+, RLE: 3+ Peripheral Pulses WNL: Yes Integumentary: Yes: WNL Neurological: Yes: Alert, Oriented Labs: CBC, BMP 12/21/18 16:20 12/21/18 16:20 Imaging - Results EKG: Report Reviewed (ECG shows sinus bradycardia HR 48, QTc 468, no J point elevations.) Other: Report Reviewed (Bun/cr: 64.4 /2.6 BNP: 00576.1) Assessment/Plan 63 year old female with PMH of CHF, HTN, HLD, DM, IBS, GERD, Anemia arrived to ED for evaluation of worsening b/l LE edema +2/3, Chills, minimal SOB. As per patient she was never given Lasix when discharged last visit, patient has been noncompliant with medication since discharge. As per ED note according to family friend there is no heat in the apartment. Patient denies CP, Dizziness, headache, N/V,C/D, no urinary symptoms. Patient was recently discharged 12/18 from [facility] for elevated troponin, CHF exacerbation, and worsening renal failure, saw nephrology last visit, ? needed renal biopsy, and ? stress test as outpatient rule out CAD. #Acute CHF exacerbation 2/2 non compliance 12/15 Echo: EF 40-45% golbal hypokinesis. Elevated LA pressure. Moderate RV hypokinesis. Rt pleural effusion. BNP: elevated CXR: noted with congestion R>L IV lasix 40 mg x1 now IV lasix 40mg BID cardiology follow up Monitor I &O Fluid restriction Low sodium diet # acute on chronic CKD Last visit 12/12 ==> (Bun 45.2 Cr 2 --> Bun55 Cr: 2.8) d/c Valsartan, renal U/S consistent with Chronic kidney Disease (12/21)- bun/cr: 64.4/2.6 - monitor renal function - Nephro Dr Story consulted #HTN/HLD -Amlodipine Besylate 5 mg PO DAILY -Isosorbide Mononitrate 30 mg PO DAILY -Metoprolol Tartrate 25 mg PO BID -Rosuvastatin 10 mg PO HS #DM - monitor BGM BID - Insulin Levemir 12 units SQ HS - Insulin Levemir 15 units SQ AM - monitor closely for hypoglycemia # GERD Pantoprazole Sodium 40 mg PO QD # Constipation -Docusate Sodium 200 mg PO HS FEN Sodium controlled diet Fluid restriction DVT PPX hep sub Q Visit type - Emergency Visit Emergency Visit: Yes ED Registration Date: 12/21/18 Care time: The patient presented to the Emergency Department on the above date and was hospitalized for further evaluation of their emergent condition. - New Patient This patient is new to me today: Yes Date on this admission: 12/22/18 - Critical Care Critical Care patient: No
[2018-12-21] MEDS ORDERED: FUROSEMIDE 40 MG/4 ML INJECTABLE VIAL IVPUSH ONE (20:23)
[2018-12-21] MEDS ORDERED: FUROSEMIDE 40 MG/4 ML INJECTABLE VIAL ONE (21:25)
[2018-12-21 21:53] LABS: EPI CELLS >36 /HPF (0-5/HPF); HYALINE CASTS 35 /lpf (0-8); URINE APPEARANCE CLOUDY; URINE BACTERIA 17.7 /hpf (NEGATIVE); URINE BILIRUBIN NEGATIVE (NEGATIVE); URINE COLOR YELLOW; URINE GLUCOSE (UA) 1+ (NEGATIVE); URINE KETONE NEGATIVE (NEGATIVE); URINE LEUK ESTERASE NEGATIVE (NEGATIVE); URINE NITRITE NEGATIVE (NEGATIVE); URINE PROTEIN 4+ (NEGATIVE); URINE RBC 4 /hpf (0-4); URINE UROBILINOGEN 0.2 mg/dL (0.2-1.0)
[2018-12-21] MEDS: DOCUSATE SODIUM 100 MG CAPSULE (FP) PO SCH (23:10)
[2018-12-21] MEDS: ROSUVASTATIN CA 10 MG TABLET (FP) PO SCH (23:11)
[2018-12-21] MEDS: INSULIN (LEVEMIR) 100 UNITS/ML UNITS SQ SCH (23:12)
[2018-12-21] MEDS: HEPARIN NA (PORCINE) 5,000 UNITS/ML 1ML VIAL SQ SCH (23:12)
[2018-12-21] MEDS: METOPROLOL TARTRATE 25 MG TABLET (FP) PO SCH (23:15)
[2018-12-22 00:23] LABS: URINE WBC 5 /hpf (0-5)
[2018-12-22] MEDS: FUROSEMIDE 40 MG/4 ML INJECTABLE VIAL IVPUSH SCH ×2 (06:21→14:18)
[2018-12-22] MEDS: INSULIN (LEVEMIR) 100 UNITS/ML UNITS SQ SCH ×3 (06:21→22:05)
[2018-12-22 08:48] LABS: HEMATOCRIT 28.3 % (32.4-45.2); HEMOGLOBIN 9.3 GM/dL (10.7-15.3); MCH 26.6 pg (25.7-33.7); MCHC 32.8 g/dl (32.0-36.0); MEAN CELL VOLUME 81.1 fl (80-96); PLATELET COUNT 189 K/MM3 (134-434); RBC 3.49 M/mm3 (3.60-5.2); RDW 20.6 % (11.6-15.6); WHITE BLOOD COUNT 4.4 K/mm3 (4.0-10.0)
[2018-12-22 08:49] LABS: BLOOD UREA NITROGEN 62.5 mg/dL (7-18); CALCIUM 8.2 mg/dL (8.5-10.1); CREATININE 2.7 mg/dL (0.55-1.3); POTASSIUM 3.7 mmol/L (3.5-5.1)
[2018-12-22] MEDS: HEPARIN NA (PORCINE) 5,000 UNITS/ML 1ML VIAL SQ SCH ×2 (09:45→21:08)
[2018-12-22] MEDS: ISOSORBIDE MONONITRATE 30 MG TAB.SR.24H (FP) PO SCH (09:45)
[2018-12-22] MEDS: FERROUS SO4 325 MG TABLET (FP) PO SCH (09:45)
[2018-12-22] MEDS: PANTOPRAZOLE 40 MG TABLET (FP) PO SCH (09:45)
[2018-12-22] MEDS: amLODIPine BESYLATE 5 MG TABLET (FP) PO SCH (09:45)
[2018-12-22] MEDS: METOPROLOL TARTRATE 25 MG TABLET (FP) PO SCH ×2 (09:45→21:08)
--- NOTE | 2018-12-22 11:38 | PN ---
Progress Note, Physician Chief Complaint: Acute on Chronic CHF Exacerbation CKD History of Present Illness: Previous notes and events reviewed awake and alert NAD denies chest pain complain SOB with exertion patient will have Renal Biopsy this week - Current Medication List Current Medications: Active Medications Acetaminophen (Tylenol -) 650 mg PO Q6H PRN PRN Reason: PAIN LEVEL 1-5 Amlodipine Besylate (Norvasc -) 5 mg PO DAILY [facility] Last Admin: 12/22/18 09:45 Dose: 5 mg Docusate Sodium (Colace -) 200 mg PO HS [facility] Last Admin: 12/21/18 23:10 Dose: 200 mg Ferrous Sulfate (Feosol -) 325 mg PO DAILY [facility] Last Admin: 12/22/18 09:45 Dose: 325 mg Furosemide (Lasix Injection -) 40 mg IVPUSH BID@0600,1400 [facility] Last Admin: 12/22/18 06:21 Dose: 40 mg Heparin Sodium (Porcine) (Heparin -) 5,000 unit SQ BID [facility] Last Admin: 12/22/18 09:45 Dose: 5,000 unit Insulin Detemir (Levemir Vial) 12 units SQ HS [facility] Last Admin: 12/21/18 23:12 Dose: 12 units Insulin Detemir (Levemir Vial) 15 units SQ AM [facility] Last Admin: 12/22/18 07:23 Dose: Not Given Isosorbide Mononitrate (Imdur -) 30 mg PO DAILY [facility] Last Admin: 12/22/18 09:45 Dose: 30 mg Metoprolol Tartrate (Lopressor -) 25 mg PO BID [facility] Last Admin: 12/22/18 09:45 Dose: 25 mg Pantoprazole Sodium (Protonix -) 40 mg PO DAILY [facility] Last Admin: 12/22/18 09:45 Dose: 40 mg Rosuvastatin Calcium (Crestor -) 10 mg PO HS [facility] Last Admin: 12/21/18 23:11 Dose: 10 mg - Objective Vital Signs: Vital Signs Temperature 97.6 F 12/22/18 05:52 Pulse Rate 56 L 12/22/18 05:52 Respiratory Rate 18 12/22/18 05:52 Blood Pressure 124/66 12/22/18 05:52 O2 Sat by Pulse Oximetry (%) 97 12/22/18 00:09 Constitutional: Yes: No Distress, Calm Eyes: Yes: Conjunctiva Clear HENT: Yes: Atraumatic Cardiovascular: Yes: Regular Rate and Rhythm Respiratory: Yes: Regular, Diminished Gastrointestinal: Yes: Normal Bowel Sounds, Soft Musculoskeletal: Yes: Muscle Weakness Extremities: Yes: WNL Edema: Yes (b/l lower extremity) Neurological: Yes: Alert, Oriented Psychiatric: Yes: Alert, Oriented Labs: CBC, BMP 12/22/18 07:25 12/22/18 07:25 INR, PTT INR 0.98 (0.83-1.09) 12/21/18 16:20 - ....Imaging Chest X-ray: Report Reviewed Problem List - Problems (1) KACI (acute kidney injury) Assessment/Plan: -Renal on board -BUN/Cr 62.5/2.7 -monitor renal function daily -UA shows 4+ protein -patient will have renal biopsy this week Code(s): N17.9 - ACUTE KIDNEY FAILURE, UNSPECIFIED (2) Acute on chronic congestive heart failure Assessment/Plan: -Cardiology consult -Furosemide -strict I&Os -daily weights -low Na diet -CXR shows symmetric bilateral basilar pleural effusions -BNP Code(s): I50.9 - HEART FAILURE, UNSPECIFIED Qualifiers: Heart failure type: systolic Qualified Code(s): I50.23 - Acute on chronic systolic (congestive) heart failure (3) Diabetes Assessment/Plan: -BGM ACHS -Levemir -Dextrose 25g IVP PRN for BS <60mg/dL -HgA1c -Dietary consult Code(s): E11.9 - TYPE 2 DIABETES MELLITUS WITHOUT COMPLICATIONS Qualifiers: Diabetes mellitus type: type 2 Diabetes mellitus fci insulin use: with fci use Diabetes mellitus complication status: with unspecified complications (4) HTN (hypertension) Assessment/Plan: -Amlodipine, Imdur, Lopressor -low Na diet Code(s): I10 - ESSENTIAL (PRIMARY) HYPERTENSION (5) Lower extremity edema Assessment/Plan: -Furosemide -daily weights -strict I&Os Code(s): R60.0 - LOCALIZED EDEMA (6) Proteinuria Assessment/Plan: -UA shows 4+ protein -Renal on board -scheduled for Renal biopsy this week Code(s): R80.9 - PROTEINURIA, UNSPECIFIED Assessment/Plan see problem list dvt ppx
[2018-12-22] MEDS ORDERED: DEXTROSE 50%-WATER - 25 GM/50 ML VIAL IVPUSH PRN (11:41)
--- NOTE | 2018-12-22 11:58 | CON.PULM ---
Consult Consult Specialty:: PULMONARY Referred by:: Dr Naidu Reason for Consultation:: shortness of breath - History of Present Illness Chief Complaint: shortness of breath History of Present Illness: 63yo female with h/o HTN, DM, hyperlipidemia, GERD, IBS, LV systolic dysfunction , pulmonary HTN, recent admission for CHF exacerbation who was admitted with worsening shortness of breath and leg swelling. No chest pain or discomfort. No fevers, but with chills. Was prescribed lasix upon discharge but states that she never received it or took any medications. Minimal nonproductive cough and no wheezing. No history of asthma or COPD. She is a never smoker. - History Source History Provided By: Patient, Medical Record Limitations to Obtaining History: No Limitations - Past Medical History Cardio/Vascular: Yes: CHF, HTN, Hyperlipdemia Gastrointestinal: Yes: Constipation, GERD ...: No Endocrine: Yes: Diabetes Mellitus (DM II) - Alcohol/Substance Use Hx Alcohol Use: No History of Substance Use: reports: None - Smoking History Smoking history: Never smoked Have you smoked in the past 12 months: No - Social History Usual Living Arrangement: With Spouse ADL: Independent Occupation: Unemployed History of Recent Travel: No Home Medications - Allergies Allergies/Adverse Reactions: Allergies Allergy/AdvReac Type Severity Reaction Status Date / Time No Known Allergies Allergy Verified 12/21/18 15:44 - Home Medications Home Medications: Ambulatory Orders Amlodipine Besylate [Norvasc -] 5 mg PO DAILY tablet 06/22/15 Insulin (Levemir) [Levemir Vial] 12 units SQ HS ml 06/22/15 Insulin (Levemir) [Levemir Vial] 15 units SQ AM ml 06/22/15 Multivitamins [Multivit ([facility] Formulary)] 1 tab PO DAILY tab 06/22/15 Ammonium Lactate Cream [Lac-Hydrin 12% Cream -] 1 applic TP DAILY #1 tube Ferrous Sulfate [Feosol] 325 mg PO DAILY #30 ud 03/05/18 Hydrocortisone 1% Ointment [Hytone 1% Ointment -] 1 applic TP DAILY #1 tube 04/22 Pantoprazole Sodium [Protonix -] 40 mg PO BID #60 tablet.ec 03/05/18 Acetaminophen [Tylenol .Regular Strength -] 650 mg PO Q6H PRN tablet 12/18/18 Docusate Sodium [Colace -] 300 mg PO HS capsule 12/18/18 Furosemide [Lasix -] 40 mg PO BID@0600,1400 tablet 12/18/18 Insulin Sliding Scale [Novolog Vial Sliding Scale -] 1 vial SQ ACHS units 12/18 Isosorbide Mononitrate [Imdur -] 30 mg PO DAILY #30 tab.sr.24h 12/18/18 Metoprolol Tartrate [Lopressor -] 25 mg PO BID #60 tablet 12/18/18 Rosuvastatin [Crestor -] 10 mg PO HS #30 tablet 12/18/18 Review of Systems - Review of Systems Constitutional: reports: Chills, Weakness. denies: Fever Eyes: denies: Recent Change in Vision HENT: denies: Nasal Congestion, Throat Pain Neck: denies: Stiffness, Tenderness Cardiovascular: reports: Edema, Shortness of Breath. denies: Chest Pain, Palpitations Respiratory: reports: Cough, SOB on Exertion. denies: Hemoptysis, Wheezing Gastrointestinal: denies: Abdominal Pain, Nausea, Vomiting Genitourinary: denies: Dysuria, Hematuria Neurological: denies: Dizziness, Headache Endocrine: denies: Unexplained Weight Loss Physical Exam Vital Sings: Vital Signs Temperature 97.6 F 12/22/18 05:52 Pulse Rate 56 L 12/22/18 05:52 Respiratory Rate 18 12/22/18 05:52 Blood Pressure 124/66 12/22/18 05:52 O2 Sat by Pulse Oximetry (%) 97 12/22/18 00:09 Constitutional: Yes: Calm Eyes: Yes: Conjunctiva Clear, EOM Intact HENT: Yes: Atraumatic, Normocephalic Neck: Yes: Supple, Trachea Midline Cardiovascular: Yes: Regular Rate and Rhythm Respiratory: Yes: Diminished (decreased breath sounds at the bases) ...Clubbing: No Gastrointestinal: Yes: Normal Bowel Sounds, Soft. No: Tenderness Edema: Yes Neurological: Yes: Alert, Oriented Labs: CBC, BMP 12/22/18 07:25 12/22/18 07:25 Imaging - Results Chest X-ray: Report Reviewed, Image Reviewed (pulmonary vascular congestion, pleural effusions) Problem List - Problems (1) Acute on chronic systolic heart failure Code(s): I50.23 - ACUTE ON CHRONIC SYSTOLIC (CONGESTIVE) HEART FAILURE Assessment/Plan Acute on Chronic Systolic Heart Failure Pulmonary HTN Pleural Effusions from above HTN DM CKD Hyperlipidemia IBS GERD Anemia - IV lasix - monitor urine output, creatinine - daily weights - O2 to keep SpO2 >90% - monitor CXR with diuresis - for renal biopsy - DVT prophylaxis Thank you for this consult Mohinder Tierney MD
--- NOTE | 2018-12-22 13:09 | CONSULT ---
Consult Consult Specialty:: Nephrology Reason for Consultation:: CKD - History of Present Illness Chief Complaint: edema History of Present Illness: Pt is a 63 year old female with pmhx of ckd, kaci, chf, htn, dm and anemia who presented with worsening lower ext edema. She was recently discharged on lasix at the end of last week. She was supposed to come for a kidney biopsy this week. It is unclear if she was taking her lasix at home. She denies shortness of breath. - History Source History Provided By: Patient, Medical Record - Past Medical History Cardio/Vascular: Yes: CHF, HTN, Hyperlipdemia Gastrointestinal: Yes: Constipation, GERD ...: No Endocrine: Yes: Diabetes Mellitus (DM II) - Alcohol/Substance Use Hx Alcohol Use: No History of Substance Use: reports: None - Smoking History Smoking history: Never smoked Have you smoked in the past 12 months: No - Social History Usual Living Arrangement: With Spouse ADL: Independent Occupation: Unemployed History of Recent Travel: No Home Medications - Allergies Allergies/Adverse Reactions: Allergies Allergy/AdvReac Type Severity Reaction Status Date / Time No Known Allergies Allergy Verified 12/21/18 15:44 - Home Medications Home Medications: Ambulatory Orders Amlodipine Besylate [Norvasc -] 5 mg PO DAILY tablet 06/22/15 Insulin (Levemir) [Levemir Vial] 12 units SQ HS ml 06/22/15 Insulin (Levemir) [Levemir Vial] 15 units SQ AM ml 06/22/15 Multivitamins [Multivit ([facility] Formulary)] 1 tab PO DAILY tab 06/22/15 Ammonium Lactate Cream [Lac-Hydrin 12% Cream -] 1 applic TP DAILY #1 tube Ferrous Sulfate [Feosol] 325 mg PO DAILY #30 ud 03/05/18 Hydrocortisone 1% Ointment [Hytone 1% Ointment -] 1 applic TP DAILY #1 tube 04/22 Pantoprazole Sodium [Protonix -] 40 mg PO BID #60 tablet.ec 03/05/18 Acetaminophen [Tylenol .Regular Strength -] 650 mg PO Q6H PRN tablet 12/18/18 Docusate Sodium [Colace -] 300 mg PO HS capsule 12/18/18 Furosemide [Lasix -] 40 mg PO BID@0600,1400 tablet 12/18/18 Insulin Sliding Scale [Novolog Vial Sliding Scale -] 1 vial SQ ACHS units 12/18 Isosorbide Mononitrate [Imdur -] 30 mg PO DAILY #30 tab.sr.24h 12/18/18 Metoprolol Tartrate [Lopressor -] 25 mg PO BID #60 tablet 12/18/18 Rosuvastatin [Crestor -] 10 mg PO HS #30 tablet 12/18/18 Family Medical History Family History: Denies Review of Systems - Review of Systems Constitutional: reports: Malaise Eyes: reports: No Symptoms HENT: reports: No Symptoms Neck: reports: No Symptoms Cardiovascular: reports: Edema Respiratory: reports: No Symptoms Gastrointestinal: reports: No Symptoms Genitourinary: reports: No Symptoms Musculoskeletal: reports: No Symptoms Neurological: reports: No Symptoms Endocrine: reports: No Symptoms Hematology/Lymphatic: reports: No Symptoms Psychiatric: reports: No Symptoms Physical Exam Vital Signs: Vital Signs Temperature 97.4 F L 12/22/18 09:00 Pulse Rate 50 L 12/22/18 09:00 Respiratory Rate 18 12/22/18 09:00 Blood Pressure 110/77 12/22/18 09:00 O2 Sat by Pulse Oximetry (%) 96 12/22/18 09:00 Constitutional: Yes: Calm Eyes: Yes: Conjunctiva Clear HENT: Yes: Atraumatic Cardiovascular: Yes: S1, S2 Respiratory: Yes: CTA Bilaterally Gastrointestinal: Yes: Soft Renal/: Yes: WNL Musculoskeletal: Yes: WNL Edema: Yes Edema: LLE: 2+, RLE: 2+ Neurological: Yes: Oriented Psychiatric: Yes: Oriented Labs: CBC, BMP 12/22/18 07:25 12/22/18 07:25 Imaging - Results Chest X-ray: Report Reviewed Problem List - Problems (1) KACI (acute kidney injury) Code(s): N17.9 - ACUTE KIDNEY FAILURE, UNSPECIFIED Assessment/Plan Current Medications Generic Name Dose Route Start Last Admin Trade Name Freq PRN Reason Stop Dose Admin Acetaminophen 650 mg 12/21/18 20:13 Tylenol - PO Q6H PRN PAIN LEVEL 1-5 Amlodipine Besylate 5 mg 12/22/18 10:00 12/22/18 09:45 Norvasc - PO 5 mg DAILY SUSAN Administration Dextrose 25 gm 12/22/18 11:41 D50w (Vial) - IVPUSH PRN PRN HYPOGLYCEMIA Docusate Sodium 200 mg 12/21/18 22:00 12/21/18 23:10 Colace - PO 200 mg HS SUSAN Administration Ferrous Sulfate 325 mg 12/22/18 10:00 12/22/18 09:45 Feosol - PO 325 mg DAILY SUSAN Administration Furosemide 40 mg 12/22/18 06:00 12/22/18 06:21 Lasix Injection - IVPUSH 40 mg BID@0600,1400 SUSAN Administration Heparin Sodium (Porcine) 5,000 unit 12/21/18 22:00 12/22/18 09:45 Heparin - SQ 5,000 unit BID SUSAN Administration Insulin Detemir 12 units 12/21/18 22:00 12/21/18 23:12 Levemir Vial SQ 12 units HS SUSAN Administration Insulin Detemir 15 units 12/22/18 07:00 12/22/18 07:23 Levemir Vial SQ Not Given AM SUSAN Isosorbide Mononitrate 30 mg 12/22/18 10:00 12/22/18 09:45 Imdur - PO 30 mg DAILY SUSAN Administration Metoprolol Tartrate 25 mg 12/21/18 22:00 12/22/18 09:45 Lopressor - PO 25 mg BID SUSAN Administration Pantoprazole Sodium 40 mg 12/22/18 10:00 12/22/18 09:45 Protonix - PO 40 mg DAILY SUSAN Administration Rosuvastatin Calcium 10 mg 12/21/18 22:00 12/21/18 23:11 Crestor - PO 10 mg HS SUSAN Administration Laboratory Tests 02/28/18 12/15/18 12/16/18 16:43 05:15 10:10 Hgb Creatinine Urine Protein Urine Blood REKHA M-Donovan Not observed IDRIS Screen Negative c-ANCA <1:20 Proteinase 3 (PR3) <3.5 p-ANCA <1:20 Atypical p-ANCA <1:20 Myeloperoxidase Ab <9.0 Double Strand DNA Ab <1 Glomerular Base Memb Ab Hep Bs Antigen Negative Hep Bs Antibody Non reactive Hep B Core Total Ab Negative Hep B Core IgM Ab Negative Hepatitis Be Antibody Negative Hepatitis Be Antigen Negative HCV Quantitation Hcv not detected 12/17/18 12/21/18 12/21/18 06:45 16:20 21:30 Hgb 9.8 L Creatinine Urine Protein 4+ H Urine Blood 2+ H REKHA M-Donovan IDRIS Screen c-ANCA Proteinase 3 (PR3) p-ANCA Atypical p-ANCA Myeloperoxidase Ab Double Strand DNA Ab Glomerular Base Memb Ab 3 Hep Bs Antigen Hep Bs Antibody Hep B Core Total Ab Hep B Core IgM Ab Hepatitis Be Antibody Hepatitis Be Antigen HCV Quantitation 12/22/18 12/22/18 07:25 07:25 Hgb 9.3 L Creatinine 2.7 H Urine Protein Urine Blood REKHA M-Donovan IDRIS Screen c-ANCA Proteinase 3 (PR3) p-ANCA Atypical p-ANCA Myeloperoxidase Ab Double Strand DNA Ab Glomerular Base Memb Ab Hep Bs Antigen Hep Bs Antibody Hep B Core Total Ab Hep B Core IgM Ab Hepatitis Be Antibody Hepatitis Be Antigen HCV Quantitation Impression 1. KACI 2. anemia 3. proteinuria 4. pleural effusions 5. htn 6. dm 7. CHF Plan - asa is on hold - called IR for kidney biopsy - cont IV lasix - serologies noted
--- NOTE | 2018-12-22 14:34 | CON.CARD ---
Consult Consult Specialty:: Cardiology Referred by:: Toney Avila Reason for Consultation:: CHF - History of Present Illness Chief Complaint: SOB and leg swelling History of Present Illness: 63 year old female with a pmhx of dm, htn, hld, IBS, gerd, anemia, and chronic systolic chf (EF 40-45%) admitted with b/l LE edema and sob. Patient reports she never got furosemide from her pharmacy. Also noncompliant with some of the other meds. No chest pain, palpitations, or syncope. - History Source History Provided By: Patient, Medical Record - Past Medical History Cardio/Vascular: Yes: CHF, HTN, Hyperlipdemia Gastrointestinal: Yes: Constipation, GERD ...: No Endocrine: Yes: Diabetes Mellitus (DM II) - Alcohol/Substance Use Hx Alcohol Use: No History of Substance Use: reports: None - Smoking History Smoking history: Never smoked Have you smoked in the past 12 months: No - Social History Usual Living Arrangement: With Spouse ADL: Independent Occupation: Unemployed History of Recent Travel: No Home Medications - Allergies Allergies/Adverse Reactions: Allergies Allergy/AdvReac Type Severity Reaction Status Date / Time No Known Allergies Allergy Verified 12/21/18 15:44 - Home Medications Home Medications: Ambulatory Orders Amlodipine Besylate [Norvasc -] 5 mg PO DAILY tablet 06/22/15 Insulin (Levemir) [Levemir Vial] 12 units SQ HS ml 06/22/15 Insulin (Levemir) [Levemir Vial] 15 units SQ AM ml 06/22/15 Multivitamins [Multivit ([facility] Form[facility])] 1 tab PO DAILY tab 06/22/15 Ammonium Lactate Cream [Lac-Hydrin 12% Cream -] 1 applic TP DAILY #1 tube Ferrous Sulfate [Feosol] 325 mg PO DAILY #30 ud 03/05/18 Hydrocortisone 1% Ointment [Hytone 1% Ointment -] 1 applic TP DAILY #1 tube 04/22 Pantoprazole Sodium [Protonix -] 40 mg PO BID #60 tablet.ec 03/05/18 Acetaminophen [Tylenol .Regular Strength -] 650 mg PO Q6H PRN tablet 12/18/18 Docusate Sodium [Colace -] 300 mg PO HS capsule 12/18/18 Furosemide [Lasix -] 40 mg PO BID@0600,1400 tablet 12/18/18 Insulin Sliding Scale [Novolog Vial Sliding Scale -] 1 vial SQ ACHS units 12/18 Isosorbide Mononitrate [Imdur -] 30 mg PO DAILY #30 tab.sr.24h 12/18/18 Metoprolol Tartrate [Lopressor -] 25 mg PO BID #60 tablet 12/18/18 Rosuvastatin [Crestor -] 10 mg PO HS #30 tablet 12/18/18 Vital Signs: Vital Signs Temperature 97.9 F 12/22/18 14:14 Pulse Rate 59 L 12/22/18 14:14 Respiratory Rate 18 12/22/18 09:00 Blood Pressure 146/79 12/22/18 14:14 O2 Sat by Pulse Oximetry (%) 96 12/22/18 09:00 Constitutional: Yes: No Distress Neck: Yes: Supple Respiratory: Yes: Rales (Bibasilar rales) Gastrointestinal: Yes: Soft Cardiovascular: Yes: Regular Rate and Rhythm JVD: Yes Carotid Bruit: No PMI: Non-Displaced Heart Sounds: Yes: S1, S2 Murmur: No: Systolic Murmur Edema: LLE: 2+, RLE: 2+ - Other Data Labs, Other Data: CBC, BMP 12/22/18 07:25 12/22/18 07:25 INR, PTT INR 0.98 (0.83-1.09) 12/21/18 16:20 Troponin, BNP 12/21/18 16:20 Troponin I 0.03 B-Natriuretic Peptide 36990.1 H Troponin, BNP 12/21/18 16:20 Troponin I 0.03 B-Natriuretic Peptide 41527.1 H Imaging - Results Chest X-ray: Report Reviewed Assessment/Plan 63 year old female with a pmhx of dm, htn, hld, IBS, gerd, anemia, and chronic systolic chf (ef 40-45%) admitted with b/l LE edema and sob. Patient reports she never got furosemide from her pharmacy. Also noncompliant with some of the other meds. No chest pain, palpitations, or syncope. CXR: b/l effusions Echo 12/15/18: LVEF 40-45%, global hypokinesis, elevated LA pressure, large pleural effusion. Mod RV hypokinesis, mod TR 1) Acute on chronic systolic CHF exacerbation -in setting of medication noncompliance. IV furosemide 40mg q12 Monitor I/O's, daily weights, lytes -Would slowly add back her BP meds. Metoprolol if tolerates from HR/BP. Than imdur. Than if needed amlodipine. Not on misti/arb as renal function been worsening and undergoing renal work up.
[2018-12-22] MEDS ORDERED: PNEUMOC 13-VAL CONJ-DIP CRM/PF 0.5 ML DISP.SYRIN IM ONE (15:15)
[2018-12-22] MEDS ORDERED: PNEUMOCOCCAL 23 VACCINE 0.5 ML VIAL IM ONE (15:30)
--- NOTE | 2018-12-22 15:56 | EKG ---
Test Reason : Blood Pressure : / mmHG Vent. Rate : 047 BPM Atrial Rate : 047 BPM P-R Int : 194 ms QRS Dur : 090 ms QT Int : 536 ms P-R-T Axes : 031 017 053 degrees QTc Int : 474 ms SINUS BRADYCARDIA POSSIBLE LEFT ATRIAL ENLARGEMENT NONSPECIFIC T WAVE ABNORMALITY ABNORMAL ECG WHEN COMPARED WITH ECG OF 14-DEC-2018 08:12, T WAVE VARIATION Confirmed by ALVIN MOHAN MD ([id number]) on 12/22/2018 3:56:05 PM Referred By: Confirmed By:ALVIN MOHAN MD
[2018-12-22] MEDS: ACETAMINOPHEN 325 MG TABLET (FP) PO PRN (16:57)
[2018-12-22] MEDS: ROSUVASTATIN CA 10 MG TABLET (FP) PO SCH (21:08)
[2018-12-22] MEDS: DOCUSATE SODIUM 100 MG CAPSULE (FP) PO SCH (21:08)
[2018-12-23] MEDS: INSULIN (LEVEMIR) 100 UNITS/ML UNITS SQ SCH ×2 (06:02→21:54)
[2018-12-23] MEDS: FUROSEMIDE 40 MG/4 ML INJECTABLE VIAL IVPUSH SCH ×2 (06:06→14:30)
[2018-12-23 08:54] LABS: HEMATOCRIT 28.5 % (32.4-45.2); HEMOGLOBIN 9.1 GM/dL (10.7-15.3); MCH 25.9 pg (25.7-33.7); MCHC 31.9 g/dl (32.0-36.0); MEAN CELL VOLUME 81.5 fl (80-96); MEAN PLT VOLUME 7.9 fl (7.5-11.1); PLATELET COUNT 176 K/MM3 (134-434); RDW 20.5 % (11.6-15.6); WHITE BLOOD COUNT 4.2 K/mm3 (4.0-10.0)
[2018-12-23 09:23] LABS: ALBUMIN 2.3 g/dl (3.4-5.0); BILIRUBIN,TOTAL 0.3 mg/dL (0.2-1); BLOOD UREA NITROGEN 63.8 mg/dL (7-18); CREATININE 2.9 mg/dL (0.55-1.3); POTASSIUM 4.2 mmol/L (3.5-5.1); TOT PROT 5.6 g/dl (6.4-8.2)
[2018-12-23] MEDS: amLODIPine BESYLATE 5 MG TABLET (FP) PO SCH (09:32)
[2018-12-23] MEDS: METOPROLOL TARTRATE 25 MG TABLET (FP) PO SCH ×2 (09:32→21:54)
[2018-12-23] MEDS: FERROUS SO4 325 MG TABLET (FP) PO SCH (09:32)
[2018-12-23] MEDS: PANTOPRAZOLE 40 MG TABLET (FP) PO SCH (09:32)
[2018-12-23] MEDS: ISOSORBIDE MONONITRATE 30 MG TAB.SR.24H (FP) PO SCH (09:32)
[2018-12-23] MEDS: HEPARIN NA (PORCINE) 5,000 UNITS/ML 1ML VIAL SQ SCH ×2 (09:33→21:54)
--- NOTE | 2018-12-23 11:37 | PN ---
Progress Note (short form) - Note Progress Note: PULMONARY s/p renal biopsy. States breathing is improving. Vital Signs Period Temp Pulse Resp BP Sys/Restrepo Pulse Ox Last 24 Hr 97.4 F-97.9 F 53-62 12-18 124-176/58-79 96-100 Gen: NAD at rest Heart: RRR Lung: decreased breath sounds at the bases Abd: soft, nontender Ext: compression stockings on CBC, BMP 12/23/18 07:37 12/23/18 07:37 Active Medications Acetaminophen (Tylenol -) 650 mg PO Q6H PRN PRN Reason: PAIN LEVEL 1-5 Last Admin: 12/22/18 16:57 Dose: 650 mg Amlodipine Besylate (Norvasc -) 5 mg PO DAILY [facility] Last Admin: 12/23/18 09:32 Dose: 5 mg Dextrose (D50w (Vial) -) 25 gm IVPUSH PRN PRN PRN Reason: HYPOGLYCEMIA Docusate Sodium (Colace -) 200 mg PO HS [facility] Last Admin: 12/22/18 21:08 Dose: 200 mg Ferrous Sulfate (Feosol -) 325 mg PO DAILY [facility] Last Admin: 12/23/18 09:32 Dose: 325 mg Furosemide (Lasix Injection -) 40 mg IVPUSH BID@0600,1400 [facility] Last Admin: 12/23/18 06:06 Dose: 40 mg Heparin Sodium (Porcine) (Heparin -) 5,000 unit SQ BID [facility] Last Admin: 12/23/18 09:33 Dose: Not Given Insulin Detemir (Levemir Vial) 12 units SQ HS [facility] Last Admin: 12/22/18 22:05 Dose: Not Given Insulin Detemir (Levemir Vial) 15 units SQ AM [facility] Last Admin: 12/23/18 06:02 Dose: Not Given Isosorbide Mononitrate (Imdur -) 30 mg PO DAILY [facility] Last Admin: 12/23/18 09:32 Dose: 30 mg Metoprolol Tartrate (Lopressor -) 25 mg PO BID [facility] Last Admin: 12/23/18 09:32 Dose: 25 mg Pantoprazole Sodium (Protonix -) 40 mg PO DAILY [facility] Last Admin: 12/23/18 09:32 Dose: 40 mg Rosuvastatin Calcium (Crestor -) 10 mg PO HS [facility] Last Admin: 12/22/18 21:08 Dose: 10 mg A/P Acute on Chronic Systolic Heart Failure Pulmonary HTN Pleural Effusions from above HTN DM CKD Hyperlipidemia IBS GERD Anemia - continue lasix - monitor urine output, creatinine - daily weights - O2 to keep SpO2 >90% - monitor CXR with diuresis - f/u renal biopsy - DVT prophylaxis Problem List - Problems (1) Acute on chronic systolic heart failure Code(s): I50.23 - ACUTE ON CHRONIC SYSTOLIC (CONGESTIVE) HEART FAILURE
[2018-12-23] MEDS ORDERED: ISOSORBIDE MONONITRATE 30 MG TAB.SR.24H (FP) PO ONE (12:47)
--- NOTE | 2018-12-23 12:54 | PN ---
Progress Note, Physician History of Present Illness: Pt seen and examined at bedside. She just had a kidney biopsy. She is awake and alert. SHe denies flank pain. She has not urinated yet. - Current Medication List Current Medications: Active Medications Acetaminophen (Tylenol -) 650 mg PO Q6H PRN PRN Reason: PAIN LEVEL 1-5 Last Admin: 12/22/18 16:57 Dose: 650 mg Amlodipine Besylate (Norvasc -) 5 mg PO DAILY [facility] Last Admin: 12/23/18 09:32 Dose: 5 mg Dextrose (D50w (Vial) -) 25 gm IVPUSH PRN PRN PRN Reason: HYPOGLYCEMIA Docusate Sodium (Colace -) 200 mg PO HS [facility] Last Admin: 12/22/18 21:08 Dose: 200 mg Ferrous Sulfate (Feosol -) 325 mg PO DAILY [facility] Last Admin: 12/23/18 09:32 Dose: 325 mg Furosemide (Lasix Injection -) 40 mg IVPUSH BID@0600,1400 [facility] Last Admin: 12/23/18 06:06 Dose: 40 mg Heparin Sodium (Porcine) (Heparin -) 5,000 unit SQ BID [facility] Last Admin: 12/23/18 09:33 Dose: Not Given Insulin Detemir (Levemir Vial) 12 units SQ HS [facility] Last Admin: 12/22/18 22:05 Dose: Not Given Insulin Detemir (Levemir Vial) 15 units SQ AM [facility] Last Admin: 12/23/18 06:02 Dose: Not Given Isosorbide Mononitrate (Imdur -) 30 mg PO DAILY [facility] Last Admin: 12/23/18 09:32 Dose: 30 mg Isosorbide Mononitrate (Imdur -) 30 mg PO ONCE ONE Stop: 12/23/18 12:48 Metoprolol Tartrate (Lopressor -) 25 mg PO BID [facility] Last Admin: 12/23/18 09:32 Dose: 25 mg Pantoprazole Sodium (Protonix -) 40 mg PO DAILY [facility] Last Admin: 12/23/18 09:32 Dose: 40 mg Rosuvastatin Calcium (Crestor -) 10 mg PO HS [facility] Last Admin: 12/22/18 21:08 Dose: 10 mg - Objective Vital Signs: Vital Signs Temperature 97.4 F L 12/23/18 12:03 Pulse Rate 59 L 12/23/18 12:03 Respiratory Rate 16 12/23/18 12:03 Blood Pressure 162/78 12/23/18 12:03 O2 Sat by Pulse Oximetry (%) 98 12/23/18 12:05 Constitutional: Yes: Calm Eyes: Yes: Conjunctiva Clear HENT: Yes: Atraumatic Neck: Yes: Supple Cardiovascular: Yes: S1, S2 Respiratory: Yes: CTA Bilaterally Gastrointestinal: Yes: Normal Bowel Sounds, Soft Genitourinary: Yes: WNL Musculoskeletal: Yes: WNL Edema: Yes Edema: LLE: 1+, RLE: 1+ Neurological: Yes: Oriented Psychiatric: Yes: Oriented Labs: CBC, BMP 12/23/18 07:37 12/23/18 07:37 INR, PTT INR 0.98 (0.83-1.09) 12/21/18 16:20 Problem List - Problems (1) KACI (acute kidney injury) Code(s): N17.9 - ACUTE KIDNEY FAILURE, UNSPECIFIED Assessment/Plan Current Medications Generic Name Dose Route Start Last Admin Trade Name [place] PRN Reason Stop Dose Admin Acetaminophen 650 mg 12/21/18 20:13 12/22/18 16:57 Tylenol - PO 650 mg Q6H PRN Administration PAIN LEVEL 1-5 Amlodipine Besylate 5 mg 12/22/18 10:00 12/23/18 09:32 Norvasc - PO 5 mg DAILY SUSAN Administration Dextrose 25 gm 12/22/18 11:41 D50w (Vial) - IVPUSH PRN PRN HYPOGLYCEMIA Docusate Sodium 200 mg 12/21/18 22:00 12/22/18 21:08 Colace - PO 200 mg HS SUSAN Administration Ferrous Sulfate 325 mg 12/22/18 10:00 12/23/18 09:32 Feosol - PO 325 mg DAILY SUSAN Administration Furosemide 40 mg 12/22/18 06:00 12/23/18 06:06 Lasix Injection - IVPUSH 40 mg BID@0600,1400 SUSAN Administration Heparin Sodium (Porcine) 5,000 unit 12/21/18 22:00 12/23/18 09:33 Heparin - SQ Not Given BID SUSAN Insulin Detemir 12 units 12/21/18 22:00 12/22/18 22:05 Levemir Vial SQ Not Given HS SUSAN Insulin Detemir 15 units 12/22/18 07:00 12/23/18 06:02 Levemir Vial SQ Not Given AM SUSAN Isosorbide Mononitrate 30 mg 12/22/18 10:00 12/23/18 09:32 Imdur - PO 30 mg DAILY [facility]USAN Administration Isosorbide Mononitrate 30 mg 12/23/18 12:47 Imdur - PO 12/23/18 12:48 ONCE ONE Metoprolol Tartrate 25 mg 12/21/18 22:00 12/23/18 09:32 Lopressor - PO 25 mg BID SUSAN Administration Pantoprazole Sodium 40 mg 12/22/18 10:00 12/23/18 09:32 Protonix - PO 40 mg DAILY [facility]USAN Administration Rosuvastatin Calcium 10 mg 12/21/18 22:00 12/22/18 21:08 Crestor - PO 10 mg HS SUSAN Administration Impression 1. KACI 2. anemia 3. proteinuria 4. pleural effusions 5. htn 6. dm 7. CHF 8. CKD Plan - pt had kidney biopsy - will add misti likely tomorrow to help with proteinria - cont lasix, volume status improving - can switch to po lasix likely tomorrow - avoid nsaids - serologies noted
--- NOTE | 2018-12-23 13:03 | PN ---
Progress Note, Physician History of Present Illness: seen and examined today in nad. s/p renal bx, lying flat in bed in nad. mild tenderness at bx site. no sob. le edema improving. - Current Medication List Current Medications: Active Medications Acetaminophen (Tylenol -) 650 mg PO Q6H PRN PRN Reason: PAIN LEVEL 1-5 Last Admin: 12/22/18 16:57 Dose: 650 mg Amlodipine Besylate (Norvasc -) 5 mg PO DAILY [facility] Last Admin: 12/23/18 09:32 Dose: 5 mg Dextrose (D50w (Vial) -) 25 gm IVPUSH PRN PRN PRN Reason: HYPOGLYCEMIA Docusate Sodium (Colace -) 200 mg PO HS [facility] Last Admin: 12/22/18 21:08 Dose: 200 mg Ferrous Sulfate (Feosol -) 325 mg PO DAILY [facility] Last Admin: 12/23/18 09:32 Dose: 325 mg Furosemide (Lasix Injection -) 40 mg IVPUSH BID@0600,1400 [facility] Last Admin: 12/23/18 06:06 Dose: 40 mg Heparin Sodium (Porcine) (Heparin -) 5,000 unit SQ BID [facility] Last Admin: 12/23/18 09:33 Dose: Not Given Insulin Detemir (Levemir Vial) 12 units SQ HS [facility] Last Admin: 12/22/18 22:05 Dose: Not Given Insulin Detemir (Levemir Vial) 15 units SQ AM [facility] Last Admin: 12/23/18 06:02 Dose: Not Given Isosorbide Mononitrate (Imdur -) 30 mg PO DAILY [facility] Last Admin: 12/23/18 09:32 Dose: 30 mg Isosorbide Mononitrate (Imdur -) 30 mg PO ONCE ONE Stop: 12/23/18 12:48 Metoprolol Tartrate (Lopressor -) 25 mg PO BID [facility] Last Admin: 12/23/18 09:32 Dose: 25 mg Pantoprazole Sodium (Protonix -) 40 mg PO DAILY [facility] Last Admin: 12/23/18 09:32 Dose: 40 mg Rosuvastatin Calcium (Crestor -) 10 mg PO HS [facility] Last Admin: 12/22/18 21:08 Dose: 10 mg - Objective Vital Signs: Vital Signs Temperature 97.4 F L 12/23/18 12:03 Pulse Rate 59 L 12/23/18 12:03 Respiratory Rate 16 12/23/18 12:03 Blood Pressure 162/78 12/23/18 12:03 O2 Sat by Pulse Oximetry (%) 98 12/23/18 12:05 Constitutional: Yes: No Distress, Calm Eyes: Yes: Conjunctiva Clear, EOM Intact, PERRL HENT: Yes: Atraumatic, Normocephalic Neck: Yes: Supple, Trachea Midline Cardiovascular: Yes: Regular Rate and Rhythm, S1, S2. No: Bradycardia, Tachycardia, Pulse Irregular, Bruit, JVD, Gallop, Murmur, Rub, S3, S4, Varicosities Respiratory: Yes: Regular, Diminished. No: Rales, Rhonchi, SOB, Wheezes Gastrointestinal: Yes: Normal Bowel Sounds, Soft. No: Distention, Tenderness Extremities: Yes: WNL Edema: Yes Edema: LLE: Trace, RLE: Trace Peripheral Pulses WNL: Yes Neurological: Yes: Alert, Oriented Psychiatric: Yes: Alert, Oriented Labs: CBC, BMP 12/23/18 07:37 12/23/18 07:37 INR, PTT INR 0.98 (0.83-1.09) 12/21/18 16:20 - ....Imaging Chest X-ray: Report Reviewed, Image Reviewed EKG: Report Reviewed, Image Reviewed Other: Report Reviewed, Image Reviewed Assessment/Plan 63 year old female with a pmhx of dm, htn, hld, IBS, gerd, anemia, and chronic systolic chf (ef 40-45%) admitted with b/l LE edema and sob. Patient reports she never got furosemide from her pharmacy. Also noncompliant with some of the other meds. No chest pain, palpitations, or syncope. CXR: b/l effusions Echo 12/15/18: LVEF 40-45%, global hypokinesis, elevated LA pressure, large pleural effusion. Mod RV hypokinesis, mod TR Acute on chronic systolic CHF exacerbation -in setting of medication noncompliance. -volume status improving -cont IV furosemide 40mg q12, transition to po when tolerates -Monitor I/O's, daily weights, lytes -cont metoprolol, imdur -plan to resume misti-I/arb when safe
--- NOTE | 2018-12-23 15:10 | PN ---
Progress Note, Physician Chief Complaint: Acute on Chronic CHF Exacerbation CKD History of Present Illness: Previous notes and events reviewed awake and alert NAD denies chest pain s/p renal biopsy, left c/o L flank pain UC prelim positive - Current Medication List Current Medications: Active Medications Acetaminophen (Tylenol -) 650 mg PO Q6H PRN PRN Reason: PAIN LEVEL 1-5 Last Admin: 12/22/18 16:57 Dose: 650 mg Amlodipine Besylate (Norvasc -) 5 mg PO DAILY [facility] Last Admin: 12/23/18 09:32 Dose: 5 mg Dextrose (D50w (Vial) -) 25 gm IVPUSH PRN PRN PRN Reason: HYPOGLYCEMIA Docusate Sodium (Colace -) 200 mg PO HS [facility] Last Admin: 12/22/18 21:08 Dose: 200 mg Ferrous Sulfate (Feosol -) 325 mg PO DAILY [facility] Last Admin: 12/23/18 09:32 Dose: 325 mg Furosemide (Lasix Injection -) 40 mg IVPUSH BID@0600,1400 [facility] Last Admin: 12/23/18 14:30 Dose: 40 mg Heparin Sodium (Porcine) (Heparin -) 5,000 unit SQ BID [facility] Last Admin: 12/23/18 09:33 Dose: Not Given Insulin Detemir (Levemir Vial) 12 units SQ HS [facility] Last Admin: 12/22/18 22:05 Dose: Not Given Insulin Detemir (Levemir Vial) 15 units SQ AM [facility] Last Admin: 12/23/18 06:02 Dose: Not Given Isosorbide Mononitrate (Imdur -) 30 mg PO DAILY [facility] Last Admin: 12/23/18 09:32 Dose: 30 mg Metoprolol Tartrate (Lopressor -) 25 mg PO BID [facility] Last Admin: 12/23/18 09:32 Dose: 25 mg Pantoprazole Sodium (Protonix -) 40 mg PO DAILY [facility] Last Admin: 12/23/18 09:32 Dose: 40 mg Rosuvastatin Calcium (Crestor -) 10 mg PO HS [facility] Last Admin: 12/22/18 21:08 Dose: 10 mg - Objective Vital Signs: Vital Signs Temperature 97.4 F L 12/23/18 12:03 Pulse Rate 59 L 12/23/18 12:03 Respiratory Rate 16 12/23/18 12:03 Blood Pressure 162/78 12/23/18 12:03 O2 Sat by Pulse Oximetry (%) 98 12/23/18 12:05 Constitutional: Yes: No Distress, Calm Eyes: Yes: Conjunctiva Clear HENT: Yes: Atraumatic Cardiovascular: Yes: Regular Rate and Rhythm Respiratory: Yes: Regular, CTA Bilaterally Gastrointestinal: Yes: Normal Bowel Sounds, Soft Musculoskeletal: Yes: Muscle Weakness Extremities: Yes: WNL Edema: No Neurological: Yes: Alert, Oriented Psychiatric: Yes: Alert, Oriented Labs: CBC, BMP 12/23/18 07:37 12/23/18 07:37 INR, PTT INR 0.98 (0.83-1.09) 12/21/18 16:20 Microbiology 12/21/18 21:30 Urine - Urine Clean Catch Urine Culture - Preliminary Lactose Fermenting Neg Bacilli Group D Strep Or Entero Coccus 12/21/18 16:20 Blood - Peripheral Venous Blood Culture - Preliminary NO GROWTH OBTAINED AFTER 24 HOURS, INCUBATION TO CONTINUE FOR 4 DAYS. 12/21/18 16:20 Blood - Peripheral Venous Blood Culture - Preliminary NO GROWTH OBTAINED AFTER 24 HOURS, INCUBATION TO CONTINUE FOR 4 DAYS. Problem List - Problems (1) KACI (acute kidney injury) Assessment/Plan: -Renal on board -BUN/Cr 63.8/2.9 -monitor renal function daily -UA shows 4+ protein -s/p renal biopsy Code(s): N17.9 - ACUTE KIDNEY FAILURE, UNSPECIFIED (2) Acute on chronic congestive heart failure Assessment/Plan: -Cardiology on board -Furosemide -strict I&Os -daily weights -low Na diet -CXR shows symmetric bilateral basilar pleural effusions -BNP 65955 Code(s): I50.9 - HEART FAILURE, UNSPECIFIED Qualifiers: Heart failure type: systolic Qualified Code(s): I50.23 - Acute on chronic systolic (congestive) heart failure (3) Diabetes Assessment/Plan: -BGM ACHS -Levemir -Dextrose 25g IVP PRN for BS <60mg/dL -HgA1c <3.5% -Dietary consult Code(s): E11.9 - TYPE 2 DIABETES MELLITUS WITHOUT COMPLICATIONS Qualifiers: Diabetes mellitus type: type 2 Diabetes mellitus custodial insulin use: with remote computer terminal operator use Diabetes mellitus complication status: with unspecified complications (4) HTN (hypertension) Assessment/Plan: -Amlodipine, Imdur, Lopressor -low Na diet Code(s): I10 - ESSENTIAL (PRIMARY) HYPERTENSION (5) Lower extremity edema Assessment/Plan: -Furosemide -daily weights -strict I&Os Code(s): R60.0 - LOCALIZED EDEMA (6) Proteinuria Assessment/Plan: -UA shows 4+ protein -Renal on board -s/p renal biopsy Code(s): R80.9 - PROTEINURIA, UNSPECIFIED Assessment/Plan see problem list dvt ppx
[2018-12-23] MEDS: ROSUVASTATIN CA 10 MG TABLET (FP) PO SCH (21:53)
[2018-12-23] MEDS: DOCUSATE SODIUM 100 MG CAPSULE (FP) PO SCH (21:54)
[2018-12-24] MEDS: INSULIN (LEVEMIR) 100 UNITS/ML UNITS SQ SCH ×2 (06:03→21:41)
[2018-12-24] MEDS: FUROSEMIDE 40 MG/4 ML INJECTABLE VIAL IVPUSH SCH ×2 (06:14→14:55)
[2018-12-24 07:56] LABS: BASO % 1.6 % (0-2.0); EOS % 3.4 % (0-4.5); HEMATOCRIT 29.3 % (32.4-45.2); HEMOGLOBIN 9.5 GM/dL (10.7-15.3); LYMPH % 15.3 % (8-40); MCH 26.3 pg (25.7-33.7); MCHC 32.4 g/dl (32.0-36.0); MEAN CELL VOLUME 81.2 fl (80-96); MEAN PLT VOLUME 7.6 fl (7.5-11.1); MONO % 7.4 % (3.8-10.2); NEUT % 72.3 % (42.8-82.8); PLATELET COUNT 196 K/MM3 (134-434); RBC 3.61 M/mm3 (3.60-5.2); RDW 20.4 % (11.6-15.6)
[2018-12-24 08:16] LABS: ALBUMIN 2.5 g/dl (3.4-5.0); BILIRUBIN,TOTAL 0.4 mg/dL (0.2-1); BLOOD UREA NITROGEN 66.9 mg/dL (7-18); CALCIUM 8.8 mg/dL (8.5-10.1); CREATININE 2.9 mg/dL (0.55-1.3); POTASSIUM 3.9 mmol/L (3.5-5.1)
[2018-12-24] MEDS: METOPROLOL TARTRATE 25 MG TABLET (FP) PO SCH ×2 (09:41→21:41)
[2018-12-24] MEDS: PANTOPRAZOLE 40 MG TABLET (FP) PO SCH (09:41)
[2018-12-24] MEDS: FERROUS SO4 325 MG TABLET (FP) PO SCH (09:41)
[2018-12-24] MEDS: VALSARTAN 80 MG TABLET (UD) PO SCH (09:41)
[2018-12-24] MEDS: ISOSORBIDE MONONITRATE 30 MG TAB.SR.24H (FP) PO SCH (09:41)
[2018-12-24] MEDS: HEPARIN NA (PORCINE) 5,000 UNITS/ML 1ML VIAL SQ SCH ×2 (09:41→21:41)
[2018-12-24] MEDS: amLODIPine BESYLATE 5 MG TABLET (FP) PO SCH (09:41)
--- NOTE | 2018-12-24 11:13 | PN ---
Progress Note, Physician Chief Complaint: Acute on Chronic CHF Exacerbation CKD History of Present Illness: Previous notes and events reviewed awake and alert NAD complain of mild mid chest pressure-EKG ordered s/p renal biopsy, left on 12/23/18 UC positive - Current Medication List Current Medications: Active Medications Acetaminophen (Tylenol -) 650 mg PO Q6H PRN PRN Reason: PAIN LEVEL 1-5 Last Admin: 12/22/18 16:57 Dose: 650 mg Amlodipine Besylate (Norvasc -) 5 mg PO DAILY [facility] Last Admin: 12/24/18 09:41 Dose: 5 mg Dextrose (D50w (Vial) -) 25 gm IVPUSH PRN PRN PRN Reason: HYPOGLYCEMIA Docusate Sodium (Colace -) 200 mg PO HS [facility] Last Admin: 12/23/18 21:54 Dose: 200 mg Ferrous Sulfate (Feosol -) 325 mg PO DAILY [facility] Last Admin: 12/24/18 09:41 Dose: 325 mg Furosemide (Lasix Injection -) 40 mg IVPUSH BID@0600,1400 [facility] Last Admin: 12/24/18 06:14 Dose: 40 mg Heparin Sodium (Porcine) (Heparin -) 5,000 unit SQ BID [facility] Last Admin: 12/24/18 09:41 Dose: 5,000 unit Insulin Detemir (Levemir Vial) 12 units SQ HS [facility] Last Admin: 12/23/18 21:54 Dose: Not Given Insulin Detemir (Levemir Vial) 15 units SQ AM [facility] Last Admin: 12/24/18 06:03 Dose: Not Given Isosorbide Mononitrate (Imdur -) 30 mg PO DAILY [facility] Last Admin: 12/24/18 09:41 Dose: 30 mg Metoprolol Tartrate (Lopressor -) 25 mg PO BID [facility] Last Admin: 12/24/18 09:41 Dose: 25 mg Pantoprazole Sodium (Protonix -) 40 mg PO DAILY [facility] Last Admin: 12/24/18 09:41 Dose: 40 mg Rosuvastatin Calcium (Crestor -) 10 mg PO HS [facility] Last Admin: 12/23/18 21:53 Dose: 10 mg Valsartan (Diovan -) 80 mg PO DAILY [facility] Last Admin: 12/24/18 09:41 Dose: 80 mg - Objective Vital Signs: Vital Signs Temperature 97.4 F L 12/24/18 09:42 Pulse Rate 63 12/24/18 09:42 Respiratory Rate 20 12/24/18 09:42 Blood Pressure 160/80 12/24/18 09:42 O2 Sat by Pulse Oximetry (%) 98 12/23/18 12:05 Constitutional: Yes: No Distress, Calm Eyes: Yes: Conjunctiva Clear HENT: Yes: Atraumatic Cardiovascular: Yes: Regular Rate and Rhythm Respiratory: Yes: Regular, Diminished Gastrointestinal: Yes: Normal Bowel Sounds, Soft Musculoskeletal: Yes: Muscle Weakness Extremities: Yes: WNL Edema: Yes Edema: LLE: 1+, RLE: 1+ Wound/Incision: Yes: Dressing Dry and Intact (L flank) Neurological: Yes: Alert, Oriented Psychiatric: Yes: Alert, Oriented Labs: CBC, BMP 12/24/18 07:10 12/24/18 07:10 INR, PTT INR 0.98 (0.83-1.09) 12/21/18 16:20 Microbiology 12/21/18 21:30 Urine - Urine Clean Catch Urine Culture - Preliminary Escherichia Coli Enterococcus Faecalis 12/21/18 16:20 Blood - Peripheral Venous Blood Culture - Preliminary NO GROWTH OBTAINED AFTER 48 HOURS, INCUBATION TO CONTINUE FOR 3 DAYS. 12/21/18 16:20 Blood - Peripheral Venous Blood Culture - Preliminary NO GROWTH OBTAINED AFTER 48 HOURS, INCUBATION TO CONTINUE FOR 3 DAYS. Problem List - Problems (1) KACI (acute kidney injury) Assessment/Plan: -Renal on board -BUN/Cr 66.9/2.9 -monitor renal function daily -UA shows 4+ protein -s/p renal biopsy Code(s): N17.9 - ACUTE KIDNEY FAILURE, UNSPECIFIED (2) Acute on chronic congestive heart failure Assessment/Plan: -Cardiology on board -Furosemide -strict I&Os -daily weights -low Na diet -CXR shows symmetric bilateral basilar pleural effusions -BNP Code(s): I50.9 - HEART FAILURE, UNSPECIFIED Qualifiers: Heart failure type: systolic Qualified Code(s): I50.23 - Acute on chronic systolic (congestive) heart failure (3) Diabetes Assessment/Plan: -BGM ACHS -Levemir -Dextrose 25g IVP PRN for BS <60mg/dL -HgA1c <3.5% -Dietary consult Code(s): E11.9 - TYPE 2 DIABETES MELLITUS WITHOUT COMPLICATIONS Qualifiers: Diabetes mellitus type: type 2 Diabetes mellitus terminal supervisor insulin use: with terminal supervisor use Diabetes mellitus complication status: with unspecified complications (4) HTN (hypertension) Assessment/Plan: -Amlodipine, Imdur, Lopressor -low Na diet Code(s): I10 - ESSENTIAL (PRIMARY) HYPERTENSION (5) Lower extremity edema Assessment/Plan: -Furosemide -daily weights -strict I&Os Code(s): R60.0 - LOCALIZED EDEMA (6) Proteinuria Assessment/Plan: -UA shows 4+ protein -Renal on board -s/p renal biopsy Code(s): R80.9 - PROTEINURIA, UNSPECIFIED (7) Chest discomfort Assessment/Plan: -EKG ordered Code(s): R07.89 - OTHER CHEST PAIN Assessment/Plan see problem list dvt ppx
--- NOTE | 2018-12-24 12:58 | PN ---
Progress Note, Physician History of Present Illness: Pt seen and examined at bedside. She is awake and alert. She denies shortness of breath. - Current Medication List Current Medications: Active Medications Acetaminophen (Tylenol -) 650 mg PO Q6H PRN PRN Reason: PAIN LEVEL 1-5 Last Admin: 12/22/18 16:57 Dose: 650 mg Amlodipine Besylate (Norvasc -) 5 mg PO DAILY [facility] Last Admin: 12/24/18 09:41 Dose: 5 mg Dextrose (D50w (Vial) -) 25 gm IVPUSH PRN PRN PRN Reason: HYPOGLYCEMIA Docusate Sodium (Colace -) 200 mg PO HS [facility] Last Admin: 12/23/18 21:54 Dose: 200 mg Ferrous Sulfate (Feosol -) 325 mg PO DAILY [facility] Last Admin: 12/24/18 09:41 Dose: 325 mg Furosemide (Lasix Injection -) 40 mg IVPUSH BID@0600,1400 [facility] Last Admin: 12/24/18 06:14 Dose: 40 mg Heparin Sodium (Porcine) (Heparin -) 5,000 unit SQ BID [facility] Last Admin: 12/24/18 09:41 Dose: 5,000 unit Insulin Detemir (Levemir Vial) 12 units SQ HS [facility] Last Admin: 12/23/18 21:54 Dose: Not Given Insulin Detemir (Levemir Vial) 15 units SQ AM [facility] Last Admin: 12/24/18 06:03 Dose: Not Given Isosorbide Mononitrate (Imdur -) 30 mg PO DAILY [facility] Last Admin: 12/24/18 09:41 Dose: 30 mg Metoprolol Tartrate (Lopressor -) 25 mg PO BID [facility] Last Admin: 12/24/18 09:41 Dose: 25 mg Pantoprazole Sodium (Protonix -) 40 mg PO DAILY [facility] Last Admin: 12/24/18 09:41 Dose: 40 mg Rosuvastatin Calcium (Crestor -) 10 mg PO HS [facility] Last Admin: 12/23/18 21:53 Dose: 10 mg Valsartan (Diovan -) 80 mg PO DAILY [facility] Last Admin: 12/24/18 09:41 Dose: 80 mg - Objective Vital Signs: Vital Signs Temperature 97.4 F L 12/24/18 11:48 Pulse Rate 59 L 12/24/18 11:48 Respiratory Rate 20 12/24/18 11:48 Blood Pressure 157/84 12/24/18 11:48 O2 Sat by Pulse Oximetry (%) 98 12/23/18 12:05 Constitutional: Yes: Calm Eyes: Yes: Conjunctiva Clear HENT: Yes: Atraumatic Neck: Yes: Supple Cardiovascular: Yes: S1, S2 Respiratory: Yes: CTA Bilaterally Gastrointestinal: Yes: Soft Genitourinary: Yes: WNL Musculoskeletal: Yes: WNL Edema: Yes Edema: LLE: 1+, RLE: 1+ Neurological: Yes: Oriented Psychiatric: Yes: Oriented Labs: CBC, BMP 12/24/18 07:10 12/24/18 07:10 INR, PTT INR 0.98 (0.83-1.09) 12/21/18 16:20 Problem List - Problems (1) KACI (acute kidney injury) Code(s): N17.9 - ACUTE KIDNEY FAILURE, UNSPECIFIED Assessment/Plan Current Medications Generic Name Dose Route Start Last Admin Trade Name Freq PRN Reason Stop Dose Admin Acetaminophen 650 mg 12/21/18 20:13 12/22/18 16:57 Tylenol - PO 650 mg Q6H PRN Administration PAIN LEVEL 1-5 Amlodipine Besylate 5 mg 12/22/18 10:00 12/24/18 09:41 Norvasc - PO 5 mg DAILY [facility] Administration Dextrose 25 gm 12/22/18 11:41 D50w (Vial) - IVPUSH PRN PRN HYPOGLYCEMIA Docusate Sodium 200 mg 12/21/18 22:00 12/23/18 21:54 Colace - PO 200 mg HS [facility] Administration Ferrous Sulfate 325 mg 12/22/18 10:00 12/24/18 09:41 Feosol - PO 325 mg DAILY [facility] Administration Furosemide 40 mg 12/22/18 06:00 12/24/18 06:14 Lasix Injection - IVPUSH 40 mg BID@0600,1400 [facility] Administration Heparin Sodium (Porcine) 5,000 unit 12/21/18 22:00 12/24/18 09:41 Heparin - SQ 5,000 unit BID [facility] Administration Insulin Detemir 12 units 12/21/18 22:00 12/23/18 21:54 Levemir Vial SQ Not Given HS [facility] Insulin Detemir 15 units 12/22/18 07:00 12/24/18 06:03 Levemir Vial SQ Not Given AM [facility] Isosorbide Mononitrate 30 mg 12/22/18 10:00 12/24/18 09:41 Imdur - PO 30 mg DAILY [facility] Administration Metoprolol Tartrate 25 mg 12/21/18 22:00 12/24/18 09:41 Lopressor - PO 25 mg BID [facility] Administration Pantoprazole Sodium 40 mg 12/22/18 10:00 12/24/18 09:41 Protonix - PO 40 mg DAILY [facility] Administration Rosuvastatin Calcium 10 mg 12/21/18 22:00 12/23/18 21:53 Crestor - PO 10 mg HS [facility] Administration Valsartan 80 mg 12/24/18 10:00 12/24/18 09:41 Diovan - PO 80 mg DAILY [facility] Administration Impression 1. KACI 2. anemia 3. proteinuria 4. pleural effusions 5. htn 6. dm 7. CHF 8. CKD Plan - hg stable - follow kidney biopsy - started arb for proteinuria - cont lasix - monitor bp - avoid nsaids - serologies noted
--- NOTE | 2018-12-24 13:25 | EKG ---
Test Reason : Blood Pressure : / mmHG Vent. Rate : 056 BPM Atrial Rate : 056 BPM P-R Int : 190 ms QRS Dur : 088 ms QT Int : 450 ms P-R-T Axes : 018 009 208 degrees QTc Int : 434 ms SINUS BRADYCARDIA POSSIBLE LEFT ATRIAL ENLARGEMENT T WAVE ABNORMALITY, CONSIDER LATERAL ISCHEMIA ABNORMAL ECG WHEN COMPARED WITH ECG OF 21-DEC-2018 15:56, NO SIGNIFICANT CHANGE WAS FOUND Confirmed by JAY SUE, CARMELO ([id number]) on 12/24/2018 1:24:51 PM Referred By: SHAHID LONG Confirmed By:CARMELO THOMPSON MD
--- NOTE | 2018-12-24 14:35 | PN ---
Progress Note (short form) - Note Progress Note: ID consult dictated imp/reccd 63 yo female with DM, admitted with worsening renal failure for renal biopsy s/p renal biopsy yesterday no fevers, no dysuria UA is negative for nitrates/LE with 5 wbc polymicrobial urine culture asymptomatic bacteriuria vs contaminated urine- +epis doubt UTI- not symptomatic, no need to treat kaci s/p renal biopsy- f/u with renal CHF- on diuretics please call back if needed Problem List - Problems (1) Asymptomatic bacteriuria Code(s): R82.71 - BACTERIURIA (2) KACI (acute kidney injury) Code(s): N17.9 - ACUTE KIDNEY FAILURE, UNSPECIFIED
--- NOTE | 2018-12-24 14:39 | PN ---
Progress Note, Physician History of Present Illness: PULMONARY ALERT,COMFORTABLE,-RESP DISTRESS - Current Medication List Current Medications: Active Medications Acetaminophen (Tylenol -) 650 mg PO Q6H PRN PRN Reason: PAIN LEVEL 1-5 Last Admin: 12/22/18 16:57 Dose: 650 mg Amlodipine Besylate (Norvasc -) 5 mg PO DAILY [facility] Last Admin: 12/24/18 09:41 Dose: 5 mg Dextrose (D50w (Vial) -) 25 gm IVPUSH PRN PRN PRN Reason: HYPOGLYCEMIA Docusate Sodium (Colace -) 200 mg PO HS [facility] Last Admin: 12/23/18 21:54 Dose: 200 mg Ferrous Sulfate (Feosol -) 325 mg PO DAILY [facility] Last Admin: 12/24/18 09:41 Dose: 325 mg Furosemide (Lasix Injection -) 40 mg IVPUSH BID@0600,1400 [facility] Last Admin: 12/24/18 06:14 Dose: 40 mg Heparin Sodium (Porcine) (Heparin -) 5,000 unit SQ BID [facility] Last Admin: 12/24/18 09:41 Dose: 5,000 unit Insulin Detemir (Levemir Vial) 12 units SQ HS [facility] Last Admin: 12/23/18 21:54 Dose: Not Given Insulin Detemir (Levemir Vial) 15 units SQ AM [facility] Last Admin: 12/24/18 06:03 Dose: Not Given Isosorbide Mononitrate (Imdur -) 30 mg PO DAILY [facility] Last Admin: 12/24/18 09:41 Dose: 30 mg Metoprolol Tartrate (Lopressor -) 25 mg PO BID [facility] Last Admin: 12/24/18 09:41 Dose: 25 mg Pantoprazole Sodium (Protonix -) 40 mg PO DAILY [facility] Last Admin: 12/24/18 09:41 Dose: 40 mg Rosuvastatin Calcium (Crestor -) 10 mg PO HS [facility] Last Admin: 12/23/18 21:53 Dose: 10 mg Valsartan (Diovan -) 80 mg PO DAILY [facility] Last Admin: 12/24/18 09:41 Dose: 80 mg - Objective Vital Signs: Vital Signs Temperature 97.4 F L 12/24/18 11:48 Pulse Rate 59 L 12/24/18 11:48 Respiratory Rate 20 12/24/18 11:48 Blood Pressure 157/84 12/24/18 11:48 O2 Sat by Pulse Oximetry (%) 98 12/23/18 12:05 Constitutional: Yes: Well Nourished, Calm Eyes: Yes: WNL HENT: Yes: WNL Neck: Yes: WNL Cardiovascular: Yes: Regular Rate and Rhythm, S1, S2 Respiratory: Yes: Diminished Gastrointestinal: Yes: Normal Bowel Sounds, Soft Extremities: Yes: WNL Edema: Yes Labs: CBC, BMP 12/24/18 07:10 12/24/18 07:10 INR, PTT INR 0.98 (0.83-1.09) 12/21/18 16:20 - ....Imaging Chest X-ray: Report Reviewed, Image Reviewed (TODD EFFUSIONS NO SIGHNIFANT CHANGE ) Assessment/Plan A/P Acute on Chronic Systolic Heart Failure Pulmonary HTN Pleural Effusions from above HTN DM CKD Hyperlipidemia IBS GERD Anemia - lasix - monitor urine output, creatinine - daily weights - O2 to keep SpO2 >90% - monitor CXR - f/u renal biopsy - DVT prophylaxis Problem List - Problems (1) Acute on chronic systolic heart failure Code(s): I50.23 - ACUTE ON CHRONIC SYSTOLIC (CONGESTIVE) HEART FAILURE
--- NOTE | 2018-12-24 15:39 | PN ---
Progress Note, Physician Chief Complaint: Lying comfortable in bed No chest pain Diuresing well History of Present Illness: 63 year old female with a pmhx of dm, htn, hld, IBS, gerd, anemia, and chronic systolic chf (EF 40-45%) admitted with b/l LE edema and sob. Patient reports she never got furosemide from her pharmacy. Also noncompliant with some of the other meds. No chest pain, palpitations, or syncope. - Current Medication List Current Medications: Active Medications Acetaminophen (Tylenol -) 650 mg PO Q6H PRN PRN Reason: PAIN LEVEL 1-5 Last Admin: 12/22/18 16:57 Dose: 650 mg Amlodipine Besylate (Norvasc -) 5 mg PO DAILY [facility] Last Admin: 12/24/18 09:41 Dose: 5 mg Dextrose (D50w (Vial) -) 25 gm IVPUSH PRN PRN PRN Reason: HYPOGLYCEMIA Docusate Sodium (Colace -) 200 mg PO HS [facility] Last Admin: 12/23/18 21:54 Dose: 200 mg Ferrous Sulfate (Feosol -) 325 mg PO DAILY [facility] Last Admin: 12/24/18 09:41 Dose: 325 mg Furosemide (Lasix Injection -) 40 mg IVPUSH BID@0600,1400 [facility] Last Admin: 12/24/18 14:55 Dose: 40 mg Heparin Sodium (Porcine) (Heparin -) 5,000 unit SQ BID [facility] Last Admin: 12/24/18 09:41 Dose: 5,000 unit Insulin Detemir (Levemir Vial) 12 units SQ HS [facility] Last Admin: 12/23/18 21:54 Dose: Not Given Insulin Detemir (Levemir Vial) 15 units SQ AM [facility] Last Admin: 12/24/18 06:03 Dose: Not Given Isosorbide Mononitrate (Imdur -) 30 mg PO DAILY [facility] Last Admin: 12/24/18 09:41 Dose: 30 mg Metoprolol Tartrate (Lopressor -) 25 mg PO BID [facility] Last Admin: 12/24/18 09:41 Dose: 25 mg Pantoprazole Sodium (Protonix -) 40 mg PO DAILY [facility] Last Admin: 12/24/18 09:41 Dose: 40 mg Rosuvastatin Calcium (Crestor -) 10 mg PO HS [facility] Last Admin: 12/23/18 21:53 Dose: 10 mg Valsartan (Diovan -) 80 mg PO DAILY [facility] Last Admin: 12/24/18 09:41 Dose: 80 mg - Objective Vital Signs: Vital Signs Temperature 97.4 F L 12/24/18 11:48 Pulse Rate 59 L 12/24/18 11:48 Respiratory Rate 20 12/24/18 11:48 Blood Pressure 157/84 12/24/18 11:48 O2 Sat by Pulse Oximetry (%) 98 12/23/18 12:05 Constitutional: Yes: No Distress Neck: Yes: Supple Cardiovascular: Yes: Regular Rate and Rhythm, S1, S2 Respiratory: Yes: Diminished Gastrointestinal: Yes: Soft Edema: LLE: Trace, RLE: Trace Labs: CBC, BMP 12/24/18 07:10 12/24/18 07:10 INR, PTT INR 0.98 (0.83-1.09) 12/21/18 16:20 Assessment/Plan 63 year old female with a pmhx of dm, htn, hld, IBS, gerd, anemia, and chronic systolic chf (ef 40-45%) admitted with b/l LE edema and sob. Patient reports she never got furosemide from her pharmacy. Also noncompliant with some of the other meds. No chest pain, palpitations, or syncope. CXR: b/l effusions Echo 12/15/18: LVEF 40-45%, global hypokinesis, elevated LA pressure, large pleural effusion. Mod RV hypokinesis, mod TR 1) Acute on chronic systolic CHF exacerbation -in setting of medication noncompliance. IV furosemide 40mg q12 but will likely transition soon to PO 40mg bid. Monitor I/O's, daily weights, lytes -Continue htn regimen and restarted back on arb. Monitor K and Cr. Uptitrate as needed either amlodipine or arb.
--- NOTE | 2018-12-24 16:34 | CONS ---
DATE OF CONSULTATION: DATE OF DICTATION: 12/24/2018 INFECTIOUS DISEASE CONSULTATION HISTORY OF PRESENT ILLNESS: This is a 63-year-old woman, past medical history of CHF, hypertension, noninsulin dependent diabetes. I met her in 2015 when she had a diabetic foot infection and a group B strep bacteremia. She required long-term IV antibiotics and aggressive wound care with podiatry. She did very well during that time. She was recently admitted in December from December 12 to December 18 with acute renal failure and elevated troponin. She was discharged on the with plans for kidney biopsy the following week while on aspirin. While she was home she did not take her Lasix. She presented with edema, some mild shortness of breath. She said on the she is now status post renal biopsy on the . She had blood cultures done on admission and had been negative. I am asked to see her because urine culture is growing both enterococcus and E. coli. PAST MEDICAL HISTORY: Notable for CHF, hypertension, hyperlipidemia, diabetes, irritable bowel syndrome, GERD, and anemia. She has had group B strep bacteremia in 2015. She has had surgery to her right foot requiring multiple debridements at that time. ALLERGIES: She has no known drug allergies. SOCIAL HISTORY: There is no history of any substance use, cigarette, alcohol or drugs. Social history: She lives in the community. Her this last year has been at the [facility] due to major medical issues. There is no history of any recent travel. REVIEW OF SYSTEMS: She has no dysuria or flank pain or suprapubic pain. She has no fevers or chills. She notes the edema, which she says has started to improve. MEDICATION: Her medications at the time of admission included Crestor, Protonix, multivitamins, Lopressor, Imdur, and insulin, Lasix, Feosol, Colace, Norvasc. PHYSICAL EXAMINATION: General: She is awake and alert, temperature is 97.4, pulse is 69, blood pressure 157/84, respiratory rate 20. HEENT: Normocephalic. Eyes are anicteric. Neck: Supple. Lungs: Diminished breath sounds at the bases. Heart: Regular rate and rhythm. Abdomen: Soft. Extremities: Notable for edema. She has dry flaking skin on her feet, no open sores. She has 1-2 plus edema of her legs. She has it of her flanks as well. LABORATORY: Notable for white count of 5, hemoglobin 9.5, platelets are 196, INR is 0.9. Her BUN and creatinine are 66 and 2.9. Urinalysis has 4+ protein, 1+ glucose, 2+ blood. She has greater than 36 epithelial cells with 5 white cells and is leukocyte esterase and nitrite negative. Blood cultures are negative. Urine culture is growing both E. coli and enterococcus. IMPRESSION: In summary, this is a 63-year-old woman who I suspect has either contaminated urine or asymptomatic with many epithelial cells and asymptomatic bacteruria. So at this time would not treat her. She is status post renal biopsy. Follow up with renal for her acute kidney injury. Lastly, heart failure. She is on diuretic treatment and is being followed by cardiology. Please call back if need. CRISTELA SIMEON M.D. BOBY/[id number]
[2018-12-24 17:26] LABS: URINE CREATININE < 13.0 mg/dL (20-275)
[2018-12-24] MEDS: ROSUVASTATIN CA 10 MG TABLET (FP) PO SCH (21:41)
[2018-12-24] MEDS: DOCUSATE SODIUM 100 MG CAPSULE (FP) PO SCH (21:41)
[2018-12-25] MEDS: FUROSEMIDE 40 MG/4 ML INJECTABLE VIAL IVPUSH SCH (05:55)
[2018-12-25] MEDS: INSULIN (LEVEMIR) 100 UNITS/ML UNITS SQ SCH ×2 (06:04→21:29)
[2018-12-25 08:12] LABS: HEMATOCRIT 28.3 % (32.4-45.2); HEMOGLOBIN 9.2 GM/dL (10.7-15.3); MCH 26.3 pg (25.7-33.7); MCHC 32.4 g/dl (32.0-36.0); MEAN CELL VOLUME 81.2 fl (80-96); PLATELET COUNT 182 K/MM3 (134-434); RBC 3.49 M/mm3 (3.60-5.2); RDW 19.9 % (11.6-15.6); WHITE BLOOD COUNT 5.2 K/mm3 (4.0-10.0)
[2018-12-25] MEDS: ACETAMINOPHEN 325 MG TABLET (FP) PO PRN (08:49)
[2018-12-25 09:19] LABS: ALBUMIN 2.2 g/dl (3.4-5.0); BILIRUBIN,TOTAL 0.3 mg/dL (0.2-1); BLOOD UREA NITROGEN 61.3 mg/dL (7-18); CALCIUM 8.3 mg/dL (8.5-10.1); CREATININE 2.8 mg/dL (0.55-1.3); POTASSIUM 3.6 mmol/L (3.5-5.1); TOT PROT 5.6 g/dl (6.4-8.2)
[2018-12-25] MEDS: HEPARIN NA (PORCINE) 5,000 UNITS/ML 1ML VIAL SQ SCH ×2 (09:30→21:29)
[2018-12-25] MEDS: ISOSORBIDE MONONITRATE 30 MG TAB.SR.24H (FP) PO SCH (09:30)
[2018-12-25] MEDS: METOPROLOL TARTRATE 25 MG TABLET (FP) PO SCH ×2 (09:31→21:29)
[2018-12-25] MEDS: FERROUS SO4 325 MG TABLET (FP) PO SCH (09:31)
[2018-12-25] MEDS: amLODIPine BESYLATE 5 MG TABLET (FP) PO SCH (09:31)
[2018-12-25] MEDS: PANTOPRAZOLE 40 MG TABLET (FP) PO SCH (09:31)
[2018-12-25] MEDS: VALSARTAN 80 MG TABLET (UD) PO SCH (09:31)
--- NOTE | 2018-12-25 10:33 | PN ---
Progress Note (short form) - Note Progress Note: PULMONARY States breathing continues to improve. Vital Signs Period Temp Pulse Resp BP Sys/Restrepo Pulse Ox Last 24 Hr 97.2 F-98.0 F 57-65 18-20 156-182/77-86 Gen: NAD at rest Heart: RRR Lung: decreased breath sounds at the bases Abd: soft, nontender Ext: compression stockings on CBC, BMP 12/25/18 07:15 12/25/18 07:15 Active Medications Acetaminophen (Tylenol -) 650 mg PO Q6H PRN PRN Reason: PAIN LEVEL 1-5 Last Admin: 12/25/18 08:49 Dose: 650 mg Amlodipine Besylate (Norvasc -) 5 mg PO DAILY [facility] Last Admin: 12/25/18 09:31 Dose: 5 mg Dextrose (D50w (Vial) -) 25 gm IVPUSH PRN PRN PRN Reason: HYPOGLYCEMIA Docusate Sodium (Colace -) 200 mg PO HS [facility] Last Admin: 12/24/18 21:41 Dose: 200 mg Ferrous Sulfate (Feosol -) 325 mg PO DAILY [facility] Last Admin: 12/25/18 09:31 Dose: 325 mg Furosemide (Lasix Injection -) 40 mg IVPUSH BID@0600,1400 [facility] Last Admin: 12/25/18 05:55 Dose: 40 mg Heparin Sodium (Porcine) (Heparin -) 5,000 unit SQ BID [facility] Last Admin: 12/25/18 09:30 Dose: 5,000 unit Insulin Detemir (Levemir Vial) 12 units SQ HS [facility] Last Admin: 12/24/18 21:41 Dose: Not Given Insulin Detemir (Levemir Vial) 15 units SQ AM [facility] Last Admin: 12/25/18 06:04 Dose: Not Given Isosorbide Mononitrate (Imdur -) 30 mg PO DAILY [facility] Last Admin: 12/25/18 09:30 Dose: 30 mg Metoprolol Tartrate (Lopressor -) 25 mg PO BID [facility] Last Admin: 12/25/18 09:31 Dose: 25 mg Pantoprazole Sodium (Protonix -) 40 mg PO DAILY [facility] Last Admin: 12/25/18 09:31 Dose: 40 mg Rosuvastatin Calcium (Crestor -) 10 mg PO HS [facility] Last Admin: 12/24/18 21:41 Dose: 10 mg Valsartan (Diovan -) 80 mg PO DAILY [facility] Last Admin: 12/25/18 09:31 Dose: 80 mg A/P Acute on Chronic Systolic Heart Failure Pulmonary HTN Pleural Effusions from above HTN DM CKD Hyperlipidemia IBS GERD Anemia - continue lasix - monitor urine output, creatinine - daily weights - O2 to keep SpO2 >90% - monitor CXR with diuresis - f/u renal biopsy - DVT prophylaxis Problem List - Problems (1) Acute on chronic systolic heart failure Code(s): I50.23 - ACUTE ON CHRONIC SYSTOLIC (CONGESTIVE) HEART FAILURE
--- NOTE | 2018-12-25 11:01 | PN ---
Progress Note, Physician Chief Complaint: Lying comfortable in bed No chest pain Diuresing well History of Present Illness: 63 year old female with a pmhx of dm, htn, hld, IBS, gerd, anemia, and chronic systolic chf (EF 40-45%) admitted with b/l LE edema and sob. Patient reports she never got furosemide from her pharmacy. Also noncompliant with some of the other meds. No chest pain, palpitations, or syncope. - Current Medication List Current Medications: Active Medications Acetaminophen (Tylenol -) 650 mg PO Q6H PRN PRN Reason: PAIN LEVEL 1-5 Last Admin: 12/25/18 08:49 Dose: 650 mg Amlodipine Besylate (Norvasc -) 5 mg PO DAILY [facility] Last Admin: 12/25/18 09:31 Dose: 5 mg Dextrose (D50w (Vial) -) 25 gm IVPUSH PRN PRN PRN Reason: HYPOGLYCEMIA Docusate Sodium (Colace -) 200 mg PO HS [facility] Last Admin: 12/24/18 21:41 Dose: 200 mg Ferrous Sulfate (Feosol -) 325 mg PO DAILY [facility] Last Admin: 12/25/18 09:31 Dose: 325 mg Furosemide (Lasix Injection -) 40 mg IVPUSH BID@0600,1400 [facility] Last Admin: 12/25/18 05:55 Dose: 40 mg Heparin Sodium (Porcine) (Heparin -) 5,000 unit SQ BID [facility] Last Admin: 12/25/18 09:30 Dose: 5,000 unit Insulin Detemir (Levemir Vial) 12 units SQ HS [facility] Last Admin: 12/24/18 21:41 Dose: Not Given Insulin Detemir (Levemir Vial) 15 units SQ AM [facility] Last Admin: 12/25/18 06:04 Dose: Not Given Isosorbide Mononitrate (Imdur -) 30 mg PO DAILY [facility] Last Admin: 12/25/18 09:30 Dose: 30 mg Metoprolol Tartrate (Lopressor -) 25 mg PO BID [facility] Last Admin: 12/25/18 09:31 Dose: 25 mg Pantoprazole Sodium (Protonix -) 40 mg PO DAILY [facility] Last Admin: 12/25/18 09:31 Dose: 40 mg Rosuvastatin Calcium (Crestor -) 10 mg PO HS [facility] Last Admin: 12/24/18 21:41 Dose: 10 mg Valsartan (Diovan -) 80 mg PO DAILY [facility] Last Admin: 12/25/18 09:31 Dose: 80 mg - Objective Vital Signs: Vital Signs Temperature 98.0 F 12/25/18 10:00 Pulse Rate 60 12/25/18 10:00 Respiratory Rate 20 12/25/18 10:00 Blood Pressure 182/80 H 12/25/18 10:00 O2 Sat by Pulse Oximetry (%) 98 12/23/18 12:05 Constitutional: Yes: No Distress Neck: Yes: Supple Cardiovascular: Yes: Regular Rate and Rhythm, S1, S2. No: JVD Respiratory: Yes: Diminished Gastrointestinal: Yes: Soft Edema: No Labs: CBC, BMP 12/25/18 07:15 12/25/18 07:15 INR, PTT INR 0.98 (0.83-1.09) 12/21/18 16:20 Assessment/Plan 63 year old female with a pmhx of dm, htn, hld, IBS, gerd, anemia, and chronic systolic chf (ef 40-45%) admitted with b/l LE edema and sob. Patient reports she never got furosemide from her pharmacy. Also noncompliant with some of the other meds. No chest pain, palpitations, or syncope. CXR: b/l effusions Echo 12/15/18: LVEF 40-45%, global hypokinesis, elevated LA pressure, large pleural effusion. Mod RV hypokinesis, mod TR 1) Acute on chronic systolic CHF exacerbation -in setting of medication noncompliance. IV furosemide 40mg q12 but would likely transition to PO 40mg bid tomorrow Monitor I/O's, daily weights, lytes -Continue htn regimen and restarted back on arb. Monitor K and Cr. Uptitrate as needed either amlodipine or arb. Would consider increasing amlodipine to 10mg daily if bp remains elevated after getting morning meds.
[2018-12-25] MEDS ORDERED: SODIUM CHLORIDE NASAL SPRAY 44 ML BOTTLE NS PRN (11:04)
[2018-12-25] MEDS ORDERED: SENNOSIDES 8.6MG TABLET (FP) PO PRN (11:05)
--- NOTE | 2018-12-25 11:11 | PN ---
Progress Note, Physician Chief Complaint: Acute on Chronic CHF Exacerbation CKD History of Present Illness: Previous notes and events reviewed awake and alert NAD patient complain of nasal congestion sts having dizziness while standing - Current Medication List Current Medications: Active Medications Acetaminophen (Tylenol -) 650 mg PO Q6H PRN PRN Reason: PAIN LEVEL 1-5 Last Admin: 12/25/18 08:49 Dose: 650 mg Amlodipine Besylate (Norvasc -) 5 mg PO DAILY [facility] Last Admin: 12/25/18 09:31 Dose: 5 mg Dextrose (D50w (Vial) -) 25 gm IVPUSH PRN PRN PRN Reason: HYPOGLYCEMIA Docusate Sodium (Colace -) 200 mg PO HS [facility] Last Admin: 12/24/18 21:41 Dose: 200 mg Ferrous Sulfate (Feosol -) 325 mg PO DAILY [facility] Last Admin: 12/25/18 09:31 Dose: 325 mg Furosemide (Lasix Injection -) 40 mg IVPUSH BID@0600,1400 [facility] Last Admin: 12/25/18 05:55 Dose: 40 mg Heparin Sodium (Porcine) (Heparin -) 5,000 unit SQ BID [facility] Last Admin: 12/25/18 09:30 Dose: 5,000 unit Insulin Detemir (Levemir Vial) 12 units SQ HS [facility] Last Admin: 12/24/18 21:41 Dose: Not Given Insulin Detemir (Levemir Vial) 15 units SQ AM [facility] Last Admin: 12/25/18 06:04 Dose: Not Given Isosorbide Mononitrate (Imdur -) 30 mg PO DAILY [facility] Last Admin: 12/25/18 09:30 Dose: 30 mg Metoprolol Tartrate (Lopressor -) 25 mg PO BID [facility] Last Admin: 12/25/18 09:31 Dose: 25 mg Pantoprazole Sodium (Protonix -) 40 mg PO DAILY [facility] Last Admin: 12/25/18 09:31 Dose: 40 mg Rosuvastatin Calcium (Crestor -) 10 mg PO HS [facility] Last Admin: 12/24/18 21:41 Dose: 10 mg Valsartan (Diovan -) 80 mg PO DAILY [facility] Last Admin: 12/25/18 09:31 Dose: 80 mg - Objective Vital Signs: Vital Signs Temperature 98.0 F 12/25/18 10:00 Pulse Rate 60 12/25/18 10:00 Respiratory Rate 20 12/25/18 10:00 Blood Pressure 182/80 H 12/25/18 10:00 O2 Sat by Pulse Oximetry (%) 98 12/23/18 12:05 Constitutional: Yes: No Distress, Calm Eyes: Yes: Conjunctiva Clear HENT: Yes: Atraumatic Neck: Yes: Supple Cardiovascular: Yes: Regular Rate and Rhythm Respiratory: Yes: Regular, Diminished Gastrointestinal: Yes: Normal Bowel Sounds, Soft Musculoskeletal: Yes: Muscle Weakness Extremities: Yes: WNL Edema: Yes Edema: LLE: 1+, RLE: 1+ Wound/Incision: Yes: Dressing Dry and Intact (L flank) Neurological: Yes: Alert, Oriented Psychiatric: Yes: Alert, Oriented Labs: CBC, BMP 12/25/18 07:15 12/25/18 07:15 INR, PTT INR 0.98 (0.83-1.09) 12/21/18 16:20 Microbiology 12/21/18 16:20 Blood - Peripheral Venous Blood Culture - Preliminary NO GROWTH OBTAINED AFTER 72 HOURS, INCUBATION TO CONTINUE FOR 2 DAYS. 12/21/18 16:20 Blood - Peripheral Venous Blood Culture - Preliminary NO GROWTH OBTAINED AFTER 72 HOURS, INCUBATION TO CONTINUE FOR 2 DAYS. 12/21/18 21:30 Urine - Urine Clean Catch Urine Culture - Preliminary Escherichia Coli Enterococcus Faecalis Problem List - Problems (1) KACI (acute kidney injury) Assessment/Plan: -Renal on board -BUN/Cr 61.3/2.8 -monitor renal function daily -UA shows 4+ protein -s/p renal biopsy Code(s): N17.9 - ACUTE KIDNEY FAILURE, UNSPECIFIED (2) Acute on chronic congestive heart failure Assessment/Plan: -Cardiology on board -Furosemide -strict I&Os -daily weights -low Na diet -CXR shows symmetric bilateral basilar pleural effusions -BNP Code(s): I50.9 - HEART FAILURE, UNSPECIFIED Qualifiers: Heart failure type: systolic Qualified Code(s): I50.23 - Acute on chronic systolic (congestive) heart failure (3) Diabetes Assessment/Plan: -BGM ACHS -Levemir -Dextrose 25g IVP PRN for BS <60mg/dL -HgA1c <3.5% -Dietary consult Code(s): E11.9 - TYPE 2 DIABETES MELLITUS WITHOUT COMPLICATIONS Qualifiers: Diabetes mellitus type: type 2 Diabetes mellitus jail insulin use: with jail use Diabetes mellitus complication status: with unspecified complications (4) HTN (hypertension) Assessment/Plan: -Amlodipine, Imdur, Lopressor -low Na diet Code(s): I10 - ESSENTIAL (PRIMARY) HYPERTENSION (5) Lower extremity edema Assessment/Plan: -Furosemide -daily weights -strict I&Os Code(s): R60.0 - LOCALIZED EDEMA (6) Proteinuria Assessment/Plan: -UA shows 4+ protein -Renal on board -s/p renal biopsy Code(s): R80.9 - PROTEINURIA, UNSPECIFIED (7) Chest discomfort Assessment/Plan: -EKG reviewed - Code(s): R07.89 - OTHER CHEST PAIN (8) Dizziness Assessment/Plan: -Orthostatic BP -Carotid US Code(s): R42 - DIZZINESS AND GIDDINESS Assessment/Plan see problem list dvt ppx
[2018-12-25] MEDS ORDERED: VALSARTAN 160 MG TABLET (UD) PO SCH (11:30)
[2018-12-25] MEDS: FUROSEMIDE 40 MG TABLET (FP) PO SCH (14:25)
--- NOTE | 2018-12-25 16:29 | PN ---
Progress Note, Physician History of Present Illness: Pt seen and examined at bedside. She is awake and alert. She feels that edema is improving. - Current Medication List Current Medications: Active Medications Acetaminophen (Tylenol -) 650 mg PO Q6H PRN PRN Reason: PAIN LEVEL 1-5 Last Admin: 12/25/18 08:49 Dose: 650 mg Amlodipine Besylate (Norvasc -) 5 mg PO DAILY [facility] Last Admin: 12/25/18 09:31 Dose: 5 mg Dextrose (D50w (Vial) -) 25 gm IVPUSH PRN PRN PRN Reason: HYPOGLYCEMIA Docusate Sodium (Colace -) 200 mg PO HS [facility] Last Admin: 12/24/18 21:41 Dose: 200 mg Ferrous Sulfate (Feosol -) 325 mg PO DAILY [facility] Last Admin: 12/25/18 09:31 Dose: 325 mg Furosemide (Lasix -) 40 mg PO BID@0600,1400 [facility] Last Admin: 12/25/18 14:25 Dose: 40 mg Heparin Sodium (Porcine) (Heparin -) 5,000 unit SQ BID [facility] Last Admin: 12/25/18 09:30 Dose: 5,000 unit Insulin Detemir (Levemir Vial) 12 units SQ HS [facility] Last Admin: 12/24/18 21:41 Dose: Not Given Insulin Detemir (Levemir Vial) 15 units SQ AM [facility] Last Admin: 12/25/18 06:04 Dose: Not Given Isosorbide Mononitrate (Imdur -) 30 mg PO DAILY [facility] Last Admin: 12/25/18 09:30 Dose: 30 mg Metoprolol Tartrate (Lopressor -) 25 mg PO BID [facility] Last Admin: 12/25/18 09:31 Dose: 25 mg Pantoprazole Sodium (Protonix -) 40 mg PO DAILY [facility] Last Admin: 12/25/18 09:31 Dose: 40 mg Rosuvastatin Calcium (Crestor -) 10 mg PO HS [facility] Last Admin: 12/24/18 21:41 Dose: 10 mg Senna (Senna -) 2 tab PO HS PRN PRN Reason: CONSTIPATION Sodium Chloride ([place] -) 2 spray NS BID PRN PRN Reason: NASAL CONGESTION Valsartan (Diovan -) 160 mg PO DAILY [facility] - Objective Vital Signs: Vital Signs Temperature 97.4 F L 12/25/18 13:24 Pulse Rate 56 L 12/25/18 13:22 Respiratory Rate 16 12/25/18 13:24 Blood Pressure 157/79 12/25/18 13:22 O2 Sat by Pulse Oximetry (%) 98 12/23/18 12:05 Constitutional: Yes: Calm Eyes: Yes: Conjunctiva Clear HENT: Yes: Atraumatic Neck: Yes: Supple Cardiovascular: Yes: S1, S2 Respiratory: Yes: CTA Bilaterally Gastrointestinal: Yes: Normal Bowel Sounds, Soft Genitourinary: Yes: WNL Musculoskeletal: Yes: WNL Edema: Yes Edema: LLE: Trace, RLE: Trace Neurological: Yes: Oriented Psychiatric: Yes: Oriented Labs: CBC, BMP 12/25/18 07:15 12/25/18 07:15 INR, PTT INR 0.98 (0.83-1.09) 12/21/18 16:20 Problem List - Problems (1) KACI (acute kidney injury) Code(s): N17.9 - ACUTE KIDNEY FAILURE, UNSPECIFIED Assessment/Plan Current Medications Generic Name Dose Route Start Last Admin Trade Name Freq PRN Reason Stop Dose Admin Acetaminophen 650 mg 12/21/18 20:13 12/25/18 08:49 Tylenol - PO 650 mg Q6H PRN Administration PAIN LEVEL 1-5 Amlodipine Besylate 5 mg 12/22/18 10:00 12/25/18 09:31 Norvasc - PO 5 mg DAILY [facility] Administration Dextrose 25 gm 12/22/18 11:41 D50w (Vial) - IVPUSH PRN PRN HYPOGLYCEMIA Docusate Sodium 200 mg 12/21/18 22:00 12/24/18 21:41 Colace - PO 200 mg HS [facility] Administration Ferrous Sulfate 325 mg 12/22/18 10:00 12/25/18 09:31 Feosol - PO 325 mg DAILY [facility] Administration Furosemide 40 mg 12/25/18 14:00 12/25/18 14:25 Lasix - PO 40 mg BID@0600,1400 [facility] Administration Heparin Sodium (Porcine) 5,000 unit 12/21/18 22:00 12/25/18 09:30 Heparin - SQ 5,000 unit BID [facility] Administration Insulin Detemir 12 units 12/21/18 22:00 12/24/18 21:41 Levemir Vial SQ Not Given HS [facility] Insulin Detemir 15 units 12/22/18 07:00 12/25/18 06:04 Levemir Vial SQ Not Given AM [facility] Isosorbide Mononitrate 30 mg 12/22/18 10:00 12/25/18 09:30 Imdur - PO 30 mg DAILY [facility] Administration Metoprolol Tartrate 25 mg 12/21/18 22:00 12/25/18 09:31 Lopressor - PO 25 mg BID [facility] Administration Pantoprazole Sodium 40 mg 12/22/18 10:00 12/25/18 09:31 Protonix - PO 40 mg DAILY [facility] Administration Rosuvastatin Calcium 10 mg 12/21/18 22:00 12/24/18 21:41 Crestor - PO 10 mg HS [facility] Administration Senna 2 tab 12/25/18 11:05 Senna - PO HS PRN CONSTIPATION Sodium Chloride 2 spray 12/25/18 11:04 [place] Nasal [place] - NS BID PRN NASAL CONGESTION Valsartan 160 mg 12/25/18 11:30 Diovan - PO DAILY [facility] Impression 1. KACI 2. anemia 3. proteinuria 4. pleural effusions 5. htn 6. dm 7. CHF 8. CKD Plan - increased dose of diovan - prelim biopsy is diabetic disease - can see in office - will need tight glucose control - keep on arb to help with proteinuria - avoid nsaids
[2018-12-25] MEDS: DOCUSATE SODIUM 100 MG CAPSULE (FP) PO SCH (21:29)
[2018-12-25] MEDS: ROSUVASTATIN CA 10 MG TABLET (FP) PO SCH (21:29)
[2018-12-26] MEDS: FUROSEMIDE 40 MG TABLET (FP) PO SCH ×2 (06:16→15:25)
[2018-12-26 08:04] LABS: HEMATOCRIT 29.6 % (32.4-45.2); HEMOGLOBIN 9.6 GM/dL (10.7-15.3); MCH 26.2 pg (25.7-33.7); MCHC 32.3 g/dl (32.0-36.0); MEAN PLT VOLUME 7.4 fl (7.5-11.1); PLATELET COUNT 200 K/MM3 (134-434); RBC 3.66 M/mm3 (3.60-5.2); RDW 20.1 % (11.6-15.6); WHITE BLOOD COUNT 5.3 K/mm3 (4.0-10.0)
[2018-12-26 08:37] LABS: ALBUMIN 2.4 g/dl (3.4-5.0); BILIRUBIN,TOTAL 0.3 mg/dL (0.2-1); BLOOD UREA NITROGEN 62.3 mg/dL (7-18); CALCIUM 8.7 mg/dL (8.5-10.1); CREATININE 2.8 mg/dL (0.55-1.3); POTASSIUM 4.1 mmol/L (3.5-5.1); TOT PROT 6.1 g/dl (6.4-8.2)
[2018-12-26] MEDS: ISOSORBIDE MONONITRATE 30 MG TAB.SR.24H (FP) PO SCH (10:17)
[2018-12-26] MEDS: FERROUS SO4 325 MG TABLET (FP) PO SCH (10:18)
[2018-12-26] MEDS: amLODIPine BESYLATE 5 MG TABLET (FP) PO SCH (10:18)
[2018-12-26] MEDS: HEPARIN NA (PORCINE) 5,000 UNITS/ML 1ML VIAL SQ SCH ×2 (10:18→21:12)
[2018-12-26] MEDS: METOPROLOL TARTRATE 25 MG TABLET (FP) PO SCH ×2 (10:18→21:12)
[2018-12-26] MEDS: PANTOPRAZOLE 40 MG TABLET (FP) PO SCH (10:18)
[2018-12-26] MEDS ORDERED: ONDANSETRON *ODT* 4 MG TABLET SL ONE (10:46)
--- NOTE | 2018-12-26 10:46 | PN ---
Progress Note, Physician Chief Complaint: Acute on Chronic CHF Exacerbation CKD History of Present Illness: Previous notes and events reviewed awake and alert NAD patient complain of nausea sts having dizziness while standing BP better controlled - Current Medication List Current Medications: Active Medications Acetaminophen (Tylenol -) 650 mg PO Q6H PRN PRN Reason: PAIN LEVEL 1-5 Last Admin: 12/25/18 08:49 Dose: 650 mg Amlodipine Besylate (Norvasc -) 5 mg PO DAILY [facility] Last Admin: 12/26/18 10:18 Dose: 5 mg Dextrose (D50w (Vial) -) 25 gm IVPUSH PRN PRN PRN Reason: HYPOGLYCEMIA Docusate Sodium (Colace -) 200 mg PO HS [facility] Last Admin: 12/25/18 21:29 Dose: 200 mg Ferrous Sulfate (Feosol -) 325 mg PO DAILY [facility] Last Admin: 12/26/18 10:18 Dose: 325 mg Furosemide (Lasix -) 40 mg PO BID@0600,1400 [facility] Last Admin: 12/26/18 06:16 Dose: 40 mg Heparin Sodium (Porcine) (Heparin -) 5,000 unit SQ BID [facility] Last Admin: 12/26/18 10:18 Dose: 5,000 unit Insulin Detemir (Levemir Vial) 12 units SQ HS [facility] Last Admin: 12/25/18 21:29 Dose: Not Given Insulin Detemir (Levemir Vial) 15 units SQ AM [facility] Last Admin: 12/25/18 06:04 Dose: Not Given Isosorbide Mononitrate (Imdur -) 30 mg PO DAILY [facility] Last Admin: 12/26/18 10:17 Dose: 30 mg Metoprolol Tartrate (Lopressor -) 25 mg PO BID [facility] Last Admin: 12/26/18 10:18 Dose: 25 mg Pantoprazole Sodium (Protonix -) 40 mg PO DAILY [facility] Last Admin: 12/26/18 10:18 Dose: 40 mg Rosuvastatin Calcium (Crestor -) 10 mg PO HS [facility] Last Admin: 12/25/18 21:29 Dose: 10 mg Senna (Senna -) 2 tab PO HS PRN PRN Reason: CONSTIPATION Sodium Chloride ([place] Nas[place] -) 2 spray NS BID PRN PRN Reason: NASAL CONGESTION Valsartan (Diovan -) 160 mg PO DAILY [facility] Last Admin: 12/26/18 10:18 Dose: 160 mg - Objective Vital Signs: Vital Signs Temperature 97.6 F 12/26/18 05:00 Pulse Rate 63 12/26/18 05:00 Respiratory Rate 18 12/26/18 05:00 Blood Pressure 157/76 12/26/18 05:00 O2 Sat by Pulse Oximetry (%) 96 12/25/18 21:00 Constitutional: Yes: No Distress, Calm Eyes: Yes: Conjunctiva Clear HENT: Yes: Atraumatic Cardiovascular: Yes: Regular Rate and Rhythm Respiratory: Yes: Regular, CTA Bilaterally Gastrointestinal: Yes: Normal Bowel Sounds, Soft Musculoskeletal: Yes: WNL Extremities: Yes: WNL Edema: Yes Edema: LLE: 1+, RLE: 1+ Neurological: Yes: Alert, Oriented Psychiatric: Yes: Alert, Oriented Labs: CBC, BMP 12/26/18 07:34 12/26/18 07:34 INR, PTT INR 0.98 (0.83-1.09) 12/21/18 16:20 Microbiology 12/21/18 16:20 Blood - Peripheral Venous Blood Culture - Preliminary NO GROWTH OBTAINED AFTER 96 HOURS, INCUBATION TO CONTINUE FOR 1 DAYS. 12/21/18 16:20 Blood - Peripheral Venous Blood Culture - Preliminary NO GROWTH OBTAINED AFTER 96 HOURS, INCUBATION TO CONTINUE FOR 1 DAYS. 12/21/18 21:30 Urine - Urine Clean Catch Urine Culture - Final Escherichia Coli Enterococcus Faecalis - ....Imaging Chest X-ray: Report Reviewed Problem List - Problems (1) KACI (acute kidney injury) Assessment/Plan: -Renal on board -BUN/Cr 62.3/2.8 -monitor renal function daily -UA shows 4+ protein -s/p renal biopsy Code(s): N17.9 - ACUTE KIDNEY FAILURE, UNSPECIFIED (2) Acute on chronic congestive heart failure Assessment/Plan: -Cardiology on board -Furosemide -strict I&Os -daily weights -low Na diet -CXR shows symmetric bilateral basilar pleural effusions -repeat CXR shows timi to moderate bilateral pleural effusions -BNP Code(s): I50.9 - HEART FAILURE, UNSPECIFIED Qualifiers: Heart failure type: systolic Qualified Code(s): I50.23 - Acute on chronic systolic (congestive) heart failure (3) Diabetes Assessment/Plan: -BGM ACHS -Levemir -Dextrose 25g IVP PRN for BS <60mg/dL -HgA1c <3.5% -Dietary consult Code(s): E11.9 - TYPE 2 DIABETES MELLITUS WITHOUT COMPLICATIONS Qualifiers: Diabetes mellitus type: type 2 Diabetes mellitus chcf insulin use: with ocean transportation intermediary use Diabetes mellitus complication status: with unspecified complications (4) HTN (hypertension) Assessment/Plan: -Amlodipine, Imdur, Lopressor -low Na diet Code(s): I10 - ESSENTIAL (PRIMARY) HYPERTENSION (5) Lower extremity edema Assessment/Plan: -Furosemide -daily weights -strict I&Os Code(s): R60.0 - LOCALIZED EDEMA (6) Proteinuria Assessment/Plan: -UA shows 4+ protein -Renal on board -s/p renal biopsy Code(s): R80.9 - PROTEINURIA, UNSPECIFIED (7) Chest discomfort Assessment/Plan: -EKG reviewed - Code(s): R07.89 - OTHER CHEST PAIN (8) Dizziness Assessment/Plan: -Orthostatic BP Code(s): R42 - DIZZINESS AND GIDDINESS Assessment/Plan see problem list dvt ppx if BP remains stale can be d/c planning
--- NOTE | 2018-12-26 12:27 | PN ---
Progress Note (short form) - Note Progress Note: PULMONARY Offers no complaints VSS/Afebrile Gen: NAD at rest Heart: RRR Lung: decreased breath sounds at the bases Abd: soft, nontender Ext: compression stockings on Active Medications reviewed labs/radiographs/noted A/P Acute on Chronic Systolic Heart Failure Pulmonary HTN Pleural Effusions from above HTN DM CKD Hyperlipidemia IBS GERD Anemia - continue lasix - monitor urine output, creatinine - daily weights - O2 to keep SpO2 >90% - monitor CXR with diuresis - f/u renal biopsy - DVT prophylaxis Serina HENLEY MD
--- NOTE | 2018-12-26 14:00 | PN ---
Progress Note, Physician Chief Complaint: Lying comfortable in bed No chest pain Diuresing well History of Present Illness: 63 year old female with a pmhx of dm, htn, hld, IBS, gerd, anemia, and chronic systolic chf (EF 40-45%) admitted with b/l LE edema and sob. Patient reports she never got furosemide from her pharmacy. Also noncompliant with some of the other meds. No chest pain, palpitations, or syncope. - Current Medication List Current Medications: Active Medications Acetaminophen (Tylenol -) 650 mg PO Q6H PRN PRN Reason: PAIN LEVEL 1-5 Last Admin: 12/25/18 08:49 Dose: 650 mg Amlodipine Besylate (Norvasc -) 5 mg PO DAILY [facility] Last Admin: 12/26/18 10:18 Dose: 5 mg Dextrose (D50w (Vial) -) 25 gm IVPUSH PRN PRN PRN Reason: HYPOGLYCEMIA Docusate Sodium (Colace -) 200 mg PO HS [facility] Last Admin: 12/25/18 21:29 Dose: 200 mg Ferrous Sulfate (Feosol -) 325 mg PO DAILY [facility] Last Admin: 12/26/18 10:18 Dose: 325 mg Furosemide (Lasix -) 40 mg PO BID@0600,1400 [facility] Last Admin: 12/26/18 06:16 Dose: 40 mg Heparin Sodium (Porcine) (Heparin -) 5,000 unit SQ BID [facility] Last Admin: 12/26/18 10:18 Dose: 5,000 unit Insulin Detemir (Levemir Vial) 12 units SQ HS [facility] Last Admin: 12/25/18 21:29 Dose: Not Given Insulin Detemir (Levemir Vial) 15 units SQ AM [facility] Last Admin: 12/25/18 06:04 Dose: Not Given Isosorbide Mononitrate (Imdur -) 30 mg PO DAILY [facility] Last Admin: 12/26/18 10:17 Dose: 30 mg Metoprolol Tartrate (Lopressor -) 25 mg PO BID [facility] Last Admin: 12/26/18 10:18 Dose: 25 mg Pantoprazole Sodium (Protonix -) 40 mg PO DAILY [facility] Last Admin: 12/26/18 10:18 Dose: 40 mg Rosuvastatin Calcium (Crestor -) 10 mg PO HS [facility] Last Admin: 12/25/18 21:29 Dose: 10 mg Senna (Senna -) 2 tab PO HS PRN PRN Reason: CONSTIPATION Sodium Chloride ([place] Nasal [place] -) 2 spray NS BID PRN PRN Reason: NASAL CONGESTION Valsartan (Diovan -) 160 mg PO DAILY [facility] Last Admin: 12/26/18 10:18 Dose: 160 mg - Objective Vital Signs: Vital Signs Temperature 97.6 F 12/26/18 09:00 Pulse Rate 63 12/26/18 09:00 Respiratory Rate 18 12/26/18 09:00 Blood Pressure 182/90 H 12/26/18 10:00 O2 Sat by Pulse Oximetry (%) 96 12/25/18 21:00 Constitutional: Yes: No Distress Neck: Yes: Supple Cardiovascular: Yes: Regular Rate and Rhythm, S1, S2 Respiratory: Yes: Diminished Gastrointestinal: Yes: Soft Edema: No Labs: CBC, BMP 12/26/18 07:34 12/26/18 07:34 INR, PTT INR 0.98 (0.83-1.09) 12/21/18 16:20 Assessment/Plan 63 year old female with a pmhx of dm, htn, hld, IBS, gerd, anemia, and chronic systolic chf (ef 40-45%) admitted with b/l LE edema and sob. Patient reports she never got furosemide from her pharmacy. Also noncompliant with some of the other meds. No chest pain, palpitations, or syncope. CXR: b/l effusions Echo 12/15/18: LVEF 40-45%, global hypokinesis, elevated LA pressure, large pleural effusion. Mod RV hypokinesis, mod TR 1) Acute on chronic systolic CHF exacerbation -in setting of medication noncompliance. IV furosemide 40mg q12 but would likely transition to PO 40mg bid during the weekend Monitor I/O's, daily weights, lytes, Weight down 10 pounds. -Continue htn regimen and restarted back on arb. Monitor K and Cr. Valsartan increased to 160mg daily. Uptitrate valsartan as renal function and K allow. Than if still need bp control increase amlodipine to 10mg. Please call back as needed.
--- NOTE | 2018-12-26 14:35 | PN ---
Progress Note, Physician History of Present Illness: Pt seen and examined at bedside. She is awake and alert. She denies dysuria or heamturia. - Current Medication List Current Medications: Active Medications Acetaminophen (Tylenol -) 650 mg PO Q6H PRN PRN Reason: PAIN LEVEL 1-5 Last Admin: 12/25/18 08:49 Dose: 650 mg Amlodipine Besylate (Norvasc -) 5 mg PO DAILY [facility] Last Admin: 12/26/18 10:18 Dose: 5 mg Dextrose (D50w (Vial) -) 25 gm IVPUSH PRN PRN PRN Reason: HYPOGLYCEMIA Docusate Sodium (Colace -) 200 mg PO HS [facility] Last Admin: 12/25/18 21:29 Dose: 200 mg Ferrous Sulfate (Feosol -) 325 mg PO DAILY [facility] Last Admin: 12/26/18 10:18 Dose: 325 mg Furosemide (Lasix -) 40 mg PO BID@0600,1400 [facility] Last Admin: 12/26/18 06:16 Dose: 40 mg Heparin Sodium (Porcine) (Heparin -) 5,000 unit SQ BID [facility] Last Admin: 12/26/18 10:18 Dose: 5,000 unit Insulin Detemir (Levemir Vial) 12 units SQ HS [facility] Last Admin: 12/25/18 21:29 Dose: Not Given Insulin Detemir (Levemir Vial) 15 units SQ AM [facility] Last Admin: 12/25/18 06:04 Dose: Not Given Isosorbide Mononitrate (Imdur -) 30 mg PO DAILY [facility] Last Admin: 12/26/18 10:17 Dose: 30 mg Metoprolol Tartrate (Lopressor -) 25 mg PO BID [facility] Last Admin: 12/26/18 10:18 Dose: 25 mg Pantoprazole Sodium (Protonix -) 40 mg PO DAILY [facility] Last Admin: 12/26/18 10:18 Dose: 40 mg Rosuvastatin Calcium (Crestor -) 10 mg PO HS [facility] Last Admin: 12/25/18 21:29 Dose: 10 mg Senna (Senna -) 2 tab PO HS PRN PRN Reason: CONSTIPATION Sodium Chloride ([place] Nasal [place] -) 2 spray NS BID PRN PRN Reason: NASAL CONGESTION Valsartan (Diovan -) 160 mg PO DAILY [facility] Last Admin: 12/26/18 10:18 Dose: 160 mg - Objective Vital Signs: Vital Signs Temperature 97.6 F 12/26/18 09:00 Pulse Rate 63 12/26/18 09:00 Respiratory Rate 18 12/26/18 09:00 Blood Pressure 182/90 H 12/26/18 10:00 O2 Sat by Pulse Oximetry (%) 96 12/25/18 21:00 Constitutional: Yes: Calm Eyes: Yes: Conjunctiva Clear HENT: Yes: Atraumatic Neck: Yes: Supple Cardiovascular: Yes: S1, S2 Gastrointestinal: Yes: Soft Genitourinary: Yes: WNL Musculoskeletal: Yes: WNL Edema: Yes Edema: LLE: 1+, RLE: 1+ Neurological: Yes: Oriented Psychiatric: Yes: Oriented Labs: CBC, BMP 12/26/18 07:34 12/26/18 07:34 INR, PTT INR 0.98 (0.83-1.09) 12/21/18 16:20 Problem List - Problems (1) KACI (acute kidney injury) Code(s): N17.9 - ACUTE KIDNEY FAILURE, UNSPECIFIED Assessment/Plan Current Medications Generic Name Dose Route Start Last Admin Trade Name Freq PRN Reason Stop Dose Admin Acetaminophen 650 mg 12/21/18 20:13 12/25/18 08:49 Tylenol - PO 650 mg Q6H PRN Administration PAIN LEVEL 1-5 Amlodipine Besylate 5 mg 12/22/18 10:00 12/26/18 10:18 Norvasc - PO 5 mg DAILY [facility] Administration Dextrose 25 gm 12/22/18 11:41 D50w (Vial) - IVPUSH PRN PRN HYPOGLYCEMIA Docusate Sodium 200 mg 12/21/18 22:00 12/25/18 21:29 Colace - PO 200 mg HS [facility] Administration Ferrous Sulfate 325 mg 12/22/18 10:00 12/26/18 10:18 Feosol - PO 325 mg DAILY [facility] Administration Furosemide 40 mg 12/25/18 14:00 12/26/18 06:16 Lasix - PO 40 mg BID@0600,1400 [facility] Administration Heparin Sodium (Porcine) 5,000 unit 12/21/18 22:00 12/26/18 10:18 Heparin - SQ 5,000 unit BID [facility] Administration Insulin Detemir 12 units 12/21/18 22:00 12/25/18 21:29 Levemir Vial SQ Not Given HS [facility] Insulin Detemir 15 units 12/22/18 07:00 12/25/18 06:04 Levemir Vial SQ Not Given AM [facility] Isosorbide Mononitrate 30 mg 12/22/18 10:00 12/26/18 10:17 Imdur - PO 30 mg DAILY [facility] Administration Metoprolol Tartrate 25 mg 12/21/18 22:00 12/26/18 10:18 Lopressor - PO 25 mg BID [facility] Administration Pantoprazole Sodium 40 mg 12/22/18 10:00 12/26/18 10:18 Protonix - PO 40 mg DAILY [facility] Administration Rosuvastatin Calcium 10 mg 12/21/18 22:00 12/25/18 21:29 Crestor - PO 10 mg HS [facility] Administration Senna 2 tab 12/25/18 11:05 Senna - PO HS PRN CONSTIPATION Sodium Chloride 2 spray 12/25/18 11:04 [place] Nasal [place] - NS BID PRN NASAL CONGESTION Valsartan 160 mg 12/25/18 11:30 12/26/18 10:18 Diovan - PO 160 mg DAILY [facility] Administration Impression 1. KACI 2. anemia 3. proteinuria 4. pleural effusions 5. htn 6. dm 7. CHF 8. CKD Plan - repeat bp after meds - cont arb - follow final biopsy, can see pt in office - discussed importance of compliance - prelim biopsy is diabetic disease - will need tight glucose control - keep on arb to help with proteinuria - cont PO lasix - avoid nsaids
[2018-12-26] MEDS ORDERED: INSULIN (NOVOLOG) ASPART 100 UNITS/ML 10ML VIAL ONE (20:58)
[2018-12-26] MEDS: DOCUSATE SODIUM 100 MG CAPSULE (FP) PO SCH (21:12)
[2018-12-26] MEDS: INSULIN (LEVEMIR) 100 UNITS/ML UNITS SQ SCH ×2 (21:14→21:20)
[2018-12-26] MEDS: ROSUVASTATIN CA 10 MG TABLET (FP) PO SCH (21:14)
[2018-12-27] MEDS: INSULIN (LEVEMIR) 100 UNITS/ML UNITS SQ SCH ×3 (06:19→21:59)
[2018-12-27] MEDS: FUROSEMIDE 40 MG TABLET (FP) PO SCH ×2 (06:19→14:08)
[2018-12-27] MEDS: ISOSORBIDE MONONITRATE 30 MG TAB.SR.24H (FP) PO SCH (09:35)
[2018-12-27] MEDS: amLODIPine BESYLATE 5 MG TABLET (FP) PO SCH (09:35)
[2018-12-27] MEDS: VALSARTAN 160 MG TABLET (UD) PO SCH (09:35)
[2018-12-27] MEDS: HEPARIN NA (PORCINE) 5,000 UNITS/ML 1ML VIAL SQ SCH ×2 (09:35→21:54)
[2018-12-27] MEDS: PANTOPRAZOLE 40 MG TABLET (FP) PO SCH (09:35)
[2018-12-27] MEDS: METOPROLOL TARTRATE 25 MG TABLET (FP) PO SCH ×2 (09:35→21:54)
[2018-12-27] MEDS: FERROUS SO4 325 MG TABLET (FP) PO SCH (09:35)
--- NOTE | 2018-12-27 10:17 | PN ---
Progress Note, Physician Chief Complaint: Acute on chronic CHF CKD HTN History of Present Illness: NAD in bed Hypertensive this AM s/p Renal biopsy - Current Medication List Current Medications: Active Medications Acetaminophen (Tylenol -) 650 mg PO Q6H PRN PRN Reason: PAIN LEVEL 1-5 Last Admin: 12/25/18 08:49 Dose: 650 mg Amlodipine Besylate (Norvasc -) 5 mg PO DAILY [facility] Last Admin: 12/27/18 09:35 Dose: 5 mg Dextrose (D50w (Vial) -) 25 gm IVPUSH PRN PRN PRN Reason: HYPOGLYCEMIA Docusate Sodium (Colace -) 200 mg PO HS [facility] Last Admin: 12/26/18 21:12 Dose: 200 mg Ferrous Sulfate (Feosol -) 325 mg PO DAILY [facility] Last Admin: 12/27/18 09:35 Dose: 325 mg Furosemide (Lasix -) 40 mg PO BID@0600,1400 [facility] Last Admin: 12/27/18 06:19 Dose: 40 mg Heparin Sodium (Porcine) (Heparin -) 5,000 unit SQ BID [facility] Last Admin: 12/27/18 09:35 Dose: 5,000 unit Insulin Detemir (Levemir Vial) 12 units SQ HS [facility] Last Admin: 12/26/18 21:20 Dose: Not Given Insulin Detemir (Levemir Vial) 15 units SQ AM [facility] Last Admin: 12/27/18 06:19 Dose: 15 units Isosorbide Mononitrate (Imdur -) 30 mg PO DAILY [facility] Last Admin: 12/27/18 09:35 Dose: 30 mg Metoprolol Tartrate (Lopressor -) 25 mg PO BID [facility] Last Admin: 12/27/18 09:35 Dose: 25 mg Pantoprazole Sodium (Protonix -) 40 mg PO DAILY [facility] Last Admin: 12/27/18 09:35 Dose: 40 mg Rosuvastatin Calcium (Crestor -) 10 mg PO HS [facility] Last Admin: 12/26/18 21:14 Dose: 10 mg Senna (Senna -) 2 tab PO HS PRN PRN Reason: CONSTIPATION Sodium Chloride ([place] Nasal [place] -) 2 spray NS BID PRN PRN Reason: NASAL CONGESTION Valsartan (Diovan -) 320 mg PO DAILY [facility] Last Admin: 12/27/18 09:35 Dose: 320 mg - Objective Vital Signs: Vital Signs Temperature 98.0 F 12/27/18 08:08 Pulse Rate 62 12/27/18 08:08 Respiratory Rate 16 12/27/18 08:08 Blood Pressure 180/90 H 12/27/18 08:08 O2 Sat by Pulse Oximetry (%) 96 12/26/18 21:00 Constitutional: Yes: Well Nourished, No Distress, Calm Cardiovascular: Yes: Regular Rate and Rhythm Respiratory: Yes: Regular Gastrointestinal: Yes: Normal Bowel Sounds, Soft, Abdomen, Obese Musculoskeletal: Yes: Muscle Weakness Extremities: Yes: WNL Edema: No Peripheral Pulses WNL: Yes Neurological: Yes: Alert, Oriented Psychiatric: Yes: Alert, Oriented Labs: CBC, BMP 12/26/18 07:34 12/26/18 07:34 INR, PTT INR 0.98 (0.83-1.09) 12/21/18 16:20 Assessment/Plan (1) KACI (acute kidney injury) Assessment/Plan: -Renal on board -BUN/Cr 62.3/2.8 -monitor renal function daily -UA shows 4+ protein -s/p renal biopsy Code(s): N17.9 - ACUTE KIDNEY FAILURE, UNSPECIFIED (2) Acute on chronic congestive heart failure Assessment/Plan: -Cardiology on board -Furosemide -strict I&Os -daily weights -low Na diet -CXR shows symmetric bilateral basilar pleural effusions -repeat CXR shows timi to moderate bilateral pleural effusions -BNP [id number] Code(s): I50.9 - HEART FAILURE, UNSPECIFIED Qualifiers: Heart failure type: systolic Qualified Code(s): I50.23 - Acute on chronic systolic (congestive) heart failure (3) Diabetes Assessment/Plan: -BGM ACHS -Levemir -Dextrose 25g IVP PRN for BS <60mg/dL -HgA1c <3.5% -Dietary consult Code(s): E11.9 - TYPE 2 DIABETES MELLITUS WITHOUT COMPLICATIONS Qualifiers: Diabetes mellitus type: type 2 Diabetes mellitus rodent exterminator insulin use: with rodent exterminator use Diabetes mellitus complication status: with unspecified complications (4) HTN (hypertension) Assessment/Plan: -Amlodipine, Imdur, Lopressor -Valsartan 160 mg was added by cardiology, however, BP remains elevated -Increase Valsartan to 320 mg po daily -low Na diet Code(s): I10 - ESSENTIAL (PRIMARY) HYPERTENSION (5) Lower extremity edema Assessment/Plan: -Furosemide -daily weights -strict I&Os Code(s): R60.0 - LOCALIZED EDEMA (6) Proteinuria Assessment/Plan: -UA shows 4+ protein -Renal on board -s/p renal biopsy Code(s): R80.9 - PROTEINURIA, UNSPECIFIED (7) Chest discomfort Assessment/Plan: -EKG reviewed - Code(s): R07.89 - OTHER CHEST PAIN (8) Dizziness Assessment/Plan: -Orthostatic BP Code(s): R42 - DIZZINESS AND GIDDINESS
--- NOTE | 2018-12-27 11:12 | PN ---
Progress Note (short form) - Note Progress Note: PULMONARY States breathing continues to improve. Intermittent dizziness. Vital Signs Period Temp Pulse Resp BP Sys/Restrepo Pulse Ox Last 24 Hr 97.3 F-98.0 F 62-67 16-20 150-180/80-90 96 Gen: NAD at rest Heart: RRR Lung: decreased breath sounds at the bases Abd: soft, nontender Ext: compression stockings on CBC, BMP 12/26/18 07:34 12/26/18 07:34 Active Medications Acetaminophen (Tylenol -) 650 mg PO Q6H PRN PRN Reason: PAIN LEVEL 1-5 Last Admin: 12/25/18 08:49 Dose: 650 mg Amlodipine Besylate (Norvasc -) 5 mg PO DAILY [facility] Last Admin: 12/27/18 09:35 Dose: 5 mg Dextrose (D50w (Vial) -) 25 gm IVPUSH PRN PRN PRN Reason: HYPOGLYCEMIA Docusate Sodium (Colace -) 200 mg PO HS [facility] Last Admin: 12/26/18 21:12 Dose: 200 mg Ferrous Sulfate (Feosol -) 325 mg PO DAILY [facility] Last Admin: 12/27/18 09:35 Dose: 325 mg Furosemide (Lasix -) 40 mg PO BID@0600,1400 [facility] Last Admin: 12/27/18 06:19 Dose: 40 mg Heparin Sodium (Porcine) (Heparin -) 5,000 unit SQ BID [facility] Last Admin: 12/27/18 09:35 Dose: 5,000 unit Insulin Detemir (Levemir Vial) 12 units SQ HS [facility] Last Admin: 12/26/18 21:20 Dose: Not Given Insulin Detemir (Levemir Vial) 15 units SQ AM [facility] Last Admin: 12/27/18 06:19 Dose: 15 units Isosorbide Mononitrate (Imdur -) 30 mg PO DAILY [facility] Last Admin: 12/27/18 09:35 Dose: 30 mg Metoprolol Tartrate (Lopressor -) 25 mg PO BID [facility] Last Admin: 12/27/18 09:35 Dose: 25 mg Pantoprazole Sodium (Protonix -) 40 mg PO DAILY [facility] Last Admin: 12/27/18 09:35 Dose: 40 mg Rosuvastatin Calcium (Crestor -) 10 mg PO HS [facility] Last Admin: 12/26/18 21:14 Dose: 10 mg Senna (Senna -) 2 tab PO HS PRN PRN Reason: CONSTIPATION Sodium Chloride ([place] Nasal [place] -) 2 spray NS BID PRN PRN Reason: NASAL CONGESTION Valsartan (Diovan -) 320 mg PO DAILY [facility] Last Admin: 12/27/18 09:35 Dose: 320 mg A/P Acute on Chronic Systolic Heart Failure Pulmonary HTN Pleural Effusions from above HTN DM CKD Hyperlipidemia IBS GERD Anemia - continue lasix - monitor urine output, creatinine - daily weights - O2 to keep SpO2 >90% - monitor CXR with diuresis - f/u renal biopsy - DVT prophylaxis Problem List - Problems (1) Acute on chronic systolic heart failure Code(s): I50.23 - ACUTE ON CHRONIC SYSTOLIC (CONGESTIVE) HEART FAILURE
[2018-12-27] MEDS: ACETAMINOPHEN 325 MG TABLET (FP) PO PRN (14:10)
--- NOTE | 2018-12-27 16:23 | PN ---
Progress Note, Physician History of Present Illness: Pt seen and examined at bedside. She is awake and alert. She gets dizziness at times. - Current Medication List Current Medications: Active Medications Acetaminophen (Tylenol -) 650 mg PO Q6H PRN PRN Reason: PAIN LEVEL 1-5 Last Admin: 12/27/18 14:10 Dose: 650 mg Amlodipine Besylate (Norvasc -) 5 mg PO DAILY [facility] Last Admin: 12/27/18 09:35 Dose: 5 mg Dextrose (D50w (Vial) -) 25 gm IVPUSH PRN PRN PRN Reason: HYPOGLYCEMIA Docusate Sodium (Colace -) 200 mg PO HS [facility] Last Admin: 12/26/18 21:12 Dose: 200 mg Ferrous Sulfate (Feosol -) 325 mg PO DAILY [facility] Last Admin: 12/27/18 09:35 Dose: 325 mg Furosemide (Lasix -) 40 mg PO BID@0600,1400 [facility] Last Admin: 12/27/18 14:08 Dose: 40 mg Heparin Sodium (Porcine) (Heparin -) 5,000 unit SQ BID [facility] Last Admin: 12/27/18 09:35 Dose: 5,000 unit Insulin Detemir (Levemir Vial) 12 units SQ HS [facility] Last Admin: 12/26/18 21:20 Dose: Not Given Insulin Detemir (Levemir Vial) 15 units SQ AM [facility] Last Admin: 12/27/18 06:19 Dose: 15 units Isosorbide Mononitrate (Imdur -) 30 mg PO DAILY [facility] Last Admin: 12/27/18 09:35 Dose: 30 mg Metoprolol Tartrate (Lopressor -) 25 mg PO BID [facility] Last Admin: 12/27/18 09:35 Dose: 25 mg Pantoprazole Sodium (Protonix -) 40 mg PO DAILY [facility] Last Admin: 12/27/18 09:35 Dose: 40 mg Rosuvastatin Calcium (Crestor -) 10 mg PO HS [facility] Last Admin: 12/26/18 21:14 Dose: 10 mg Senna (Senna -) 2 tab PO HS PRN PRN Reason: CONSTIPATION Sodium Chloride ([place] Nasal [place] -) 2 spray NS BID PRN PRN Reason: NASAL CONGESTION Valsartan (Diovan -) 320 mg PO DAILY [facility] Last Admin: 12/27/18 09:35 Dose: 320 mg - Objective Vital Signs: Vital Signs Temperature 97.6 F 12/27/18 14:38 Pulse Rate 59 L 12/27/18 15:43 Respiratory Rate 15 12/27/18 15:43 Blood Pressure 156/73 12/27/18 15:43 O2 Sat by Pulse Oximetry (%) 97 12/27/18 09:00 Constitutional: Yes: Calm Eyes: Yes: Conjunctiva Clear HENT: Yes: Atraumatic Neck: Yes: Supple Cardiovascular: Yes: S1, S2 Respiratory: Yes: CTA Bilaterally Gastrointestinal: Yes: Soft Genitourinary: Yes: WNL Musculoskeletal: Yes: WNL Edema: Yes Edema: LLE: Trace, RLE: Trace Neurological: Yes: Oriented Psychiatric: Yes: Oriented Labs: CBC, BMP 12/26/18 07:34 12/26/18 07:34 INR, PTT INR 0.98 (0.83-1.09) 12/21/18 16:20 Problem List - Problems (1) KACI (acute kidney injury) Code(s): N17.9 - ACUTE KIDNEY FAILURE, UNSPECIFIED Assessment/Plan Current Medications Generic Name Dose Route Start Last Admin Trade Name Freq PRN Reason Stop Dose Admin Acetaminophen 650 mg 12/21/18 20:13 12/27/18 14:10 Tylenol - PO 650 mg Q6H PRN Administration PAIN LEVEL 1-5 Amlodipine Besylate 5 mg 12/22/18 10:00 12/27/18 09:35 Norvasc - PO 5 mg DAILY [facility] Administration Dextrose 25 gm 12/22/18 11:41 D50w (Vial) - IVPUSH PRN PRN HYPOGLYCEMIA Docusate Sodium 200 mg 12/21/18 22:00 12/26/18 21:12 Colace - PO 200 mg HS [facility] Administration Ferrous Sulfate 325 mg 12/22/18 10:00 12/27/18 09:35 Feosol - PO 325 mg DAILY [facility] Administration Furosemide 40 mg 12/25/18 14:00 12/27/18 14:08 Lasix - PO 40 mg BID@0600,1400 [facility] Administration Heparin Sodium (Porcine) 5,000 unit 12/21/18 22:00 12/27/18 09:35 Heparin - SQ 5,000 unit BID [facility] Administration Insulin Detemir 12 units 12/21/18 22:00 12/26/18 21:20 Levemir Vial SQ Not Given HS [facility] Insulin Detemir 15 units 12/22/18 07:00 12/27/18 06:19 Levemir Vial SQ 15 units AM [facility] Administration Isosorbide Mononitrate 30 mg 12/22/18 10:00 12/27/18 09:35 Imdur - PO 30 mg DAILY [facility] Administration Metoprolol Tartrate 25 mg 12/21/18 22:00 12/27/18 09:35 Lopressor - PO 25 mg BID [facility] Administration Pantoprazole Sodium 40 mg 12/22/18 10:00 12/27/18 09:35 Protonix - PO 40 mg DAILY [facility] Administration Rosuvastatin Calcium 10 mg 12/21/18 22:00 12/26/18 21:14 Crestor - PO 10 mg HS [facility] Administration Senna 2 tab 12/25/18 11:05 Senna - PO HS PRN CONSTIPATION Sodium Chloride 2 spray 12/25/18 11:04 [place] Nasal [place] - NS BID PRN NASAL CONGESTION Valsartan 320 mg 12/27/18 10:00 12/27/18 09:35 Diovan - PO 320 mg DAILY [facility] Administration Impression 1. KACI 2. anemia 3. proteinuria 4. pleural effusions 5. htn 6. dm 7. CHF 8. CKD Plan - cont diovan - repeat labs in am - check orhtostatics - cont lasix - prelim biopsy is diabetic disease - will need tight glucose control - keep on arb to help with proteinuria - will repeat a1c as last a1c does not correlate with biopsy - avoid nsaids
[2018-12-27] MEDS: DOCUSATE SODIUM 100 MG CAPSULE (FP) PO SCH (21:54)
[2018-12-27] MEDS: ROSUVASTATIN CA 10 MG TABLET (FP) PO SCH (21:54)
[2018-12-28] MEDS: INSULIN (LEVEMIR) 100 UNITS/ML UNITS SQ SCH ×2 (06:34→22:09)
[2018-12-28] MEDS: FUROSEMIDE 40 MG TABLET (FP) PO SCH ×2 (06:35→13:52)
[2018-12-28 08:03] LABS: BASO % 1.4 % (0-2.0); EOS % 3.5 % (0-4.5); HEMATOCRIT 32.9 % (32.4-45.2); HEMOGLOBIN 10.6 GM/dL (10.7-15.3); LYMPH % 14.6 % (8-40); MCH 26.2 pg (25.7-33.7); MCHC 32.2 g/dl (32.0-36.0); MEAN CELL VOLUME 81.5 fl (80-96); MEAN PLT VOLUME 7.7 fl (7.5-11.1); MONO % 7.4 % (3.8-10.2); NEUT % 73.1 % (42.8-82.8); PLATELET COUNT 234 K/MM3 (134-434); RBC 4.04 M/mm3 (3.60-5.2); RDW 20.3 % (11.6-15.6); WHITE BLOOD COUNT 5.7 K/mm3 (4.0-10.0)
--- NOTE | 2018-12-28 08:23 | PN ---
Progress Note, Physician Chief Complaint: Acute on chronic CHF CKD HTN History of Present Illness: NAD in bed HTN improved s/p Renal biopsy C/O nausea+ loose stools x 2 - Current Medication List Current Medications: Active Medications Acetaminophen (Tylenol -) 650 mg PO Q6H PRN PRN Reason: PAIN LEVEL 1-5 Last Admin: 12/27/18 14:10 Dose: 650 mg Amlodipine Besylate (Norvasc -) 5 mg PO DAILY [facility] Last Admin: 12/27/18 09:35 Dose: 5 mg Dextrose (D50w (Vial) -) 25 gm IVPUSH PRN PRN PRN Reason: HYPOGLYCEMIA Docusate Sodium (Colace -) 200 mg PO HS [facility] Last Admin: 12/27/18 21:54 Dose: 200 mg Ferrous Sulfate (Feosol -) 325 mg PO DAILY [facility] Last Admin: 12/27/18 09:35 Dose: 325 mg Furosemide (Lasix -) 40 mg PO BID@0600,1400 [facility] Last Admin: 12/28/18 06:35 Dose: 40 mg Heparin Sodium (Porcine) (Heparin -) 5,000 unit SQ BID [facility] Last Admin: 12/27/18 21:54 Dose: 5,000 unit Insulin Detemir (Levemir Vial) 12 units SQ HS [facility] Last Admin: 12/27/18 21:59 Dose: Not Given Insulin Detemir (Levemir Vial) 15 units SQ AM [facility] Last Admin: 12/28/18 06:34 Dose: 15 units Isosorbide Mononitrate (Imdur -) 30 mg PO DAILY [facility] Last Admin: 12/27/18 09:35 Dose: 30 mg Metoprolol Tartrate (Lopressor -) 25 mg PO BID [facility] Last Admin: 12/27/18 21:54 Dose: 25 mg Pantoprazole Sodium (Protonix -) 40 mg PO DAILY [facility] Last Admin: 12/27/18 09:35 Dose: 40 mg Rosuvastatin Calcium (Crestor -) 10 mg PO HS [facility] Last Admin: 12/27/18 21:54 Dose: 10 mg Senna (Senna -) 2 tab PO HS PRN PRN Reason: CONSTIPATION Sodium Chloride ([place] Nasal [place] -) 2 spray NS BID PRN PRN Reason: NASAL CONGESTION Valsartan (Diovan -) 320 mg PO DAILY [facility] Last Admin: 12/27/18 09:35 Dose: 320 mg - Objective Vital Signs: Vital Signs Temperature 97.3 F L 12/28/18 04:32 Pulse Rate 74 12/28/18 08:08 Respiratory Rate 18 12/28/18 04:32 Blood Pressure 150/71 12/28/18 08:08 O2 Sat by Pulse Oximetry (%) 97 12/27/18 09:00 Constitutional: Yes: Well Nourished, No Distress, Calm Cardiovascular: Yes: Regular Rate and Rhythm Respiratory: Yes: Regular Gastrointestinal: Yes: Normal Bowel Sounds, Soft, Other (diffuse rigidity) Genitourinary: Yes: WNL Musculoskeletal: Yes: WNL Extremities: Yes: WNL Edema: No Peripheral Pulses WNL: Yes Neurological: Yes: Alert, Oriented Psychiatric: Yes: Alert, Oriented Labs: CBC, BMP 12/28/18 07:20 INR, PTT INR 0.98 (0.83-1.09) 12/21/18 16:20 Problem List - Problems (1) Nausea Assessment/Plan: -KUB ordered Problems reviewed: Yes Code(s): R11.0 - NAUSEA Assessment/Plan (1) KACI (acute kidney injury) Assessment/Plan: -Renal on board -reanl fxn stable -UA shows 4+ protein -s/p renal biopsy -On ARB- will continue Code(s): N17.9 - ACUTE KIDNEY FAILURE, UNSPECIFIED (2) Acute on chronic congestive heart failure Assessment/Plan: -Cardiology on board -Continue Furosemide -strict I&Os -daily weights -low Na diet -CXR shows symmetric bilateral basilar pleural effusions -repeat CXR shows timi to moderate bilateral pleural effusions Code(s): I50.9 - HEART FAILURE, UNSPECIFIED Qualifiers: Heart failure type: systolic Qualified Code(s): I50.23 - Acute on chronic systolic (congestive) heart failure (3) Diabetes Assessment/Plan: -BGM ACHS -Levemir -Dextrose 25g IVP PRN for BS <60mg/dL -HgA1c at 6.6% -Dietary consult Code(s): E11.9 - TYPE 2 DIABETES MELLITUS WITHOUT COMPLICATIONS Qualifiers: Diabetes mellitus type: type 2 Diabetes mellitus terminal press operator insulin use: with [facility] use Diabetes mellitus complication status: with unspecified complications (4) HTN (hypertension) Assessment/Plan: -Amlodipine, Imdur, Lopressor -Valsartan increased to 320 mg po daily -low Na diet Code(s): I10 - ESSENTIAL (PRIMARY) HYPERTENSION (5) Lower extremity edema Assessment/Plan: -Furosemide -daily weights -strict I&Os Code(s): R60.0 - LOCALIZED EDEMA (6) Proteinuria Assessment/Plan: -UA shows 4+ protein -Renal on board -s/p renal biopsy Code(s): R80.9 - PROTEINURIA, UNSPECIFIED (7) Chest discomfort Assessment/Plan: -EKG reviewed - Code(s): R07.89 - OTHER CHEST PAIN (8) Dizziness Assessment/Plan: -Orthostatic BP negative Code(s): R42 - DIZZINESS AND GIDDINESS
[2018-12-28 08:31] LABS: ALBUMIN 2.7 g/dl (3.4-5.0); BILIRUBIN,TOTAL 0.3 mg/dL (0.2-1); BLOOD UREA NITROGEN 61.6 mg/dL (7-18); CALCIUM 9.3 mg/dL (8.5-10.1); CREATININE 2.9 mg/dL (0.55-1.3); POTASSIUM 4.3 mmol/L (3.5-5.1); TOT PROT 6.9 g/dl (6.4-8.2)
[2018-12-28] MEDS: amLODIPine BESYLATE 5 MG TABLET (FP) PO SCH (09:18)
[2018-12-28] MEDS: PANTOPRAZOLE 40 MG TABLET (FP) PO SCH (09:18)
[2018-12-28] MEDS: VALSARTAN 160 MG TABLET (UD) PO SCH (09:18)
[2018-12-28] MEDS: METOPROLOL TARTRATE 25 MG TABLET (FP) PO SCH ×2 (09:18→22:07)
[2018-12-28] MEDS: FERROUS SO4 325 MG TABLET (FP) PO SCH (09:19)
[2018-12-28] MEDS: HEPARIN NA (PORCINE) 5,000 UNITS/ML 1ML VIAL SQ SCH ×2 (09:19→22:06)
[2018-12-28] MEDS: ISOSORBIDE MONONITRATE 30 MG TAB.SR.24H (FP) PO SCH (09:19)
--- NOTE | 2018-12-28 11:42 | PN ---
Progress Note (short form) - Note Progress Note: PULMONARY States breathing continues to improve. Intermittent dizziness. Vital Signs Period Temp Pulse Resp BP Sys/Restrepo Pulse Ox Last 24 Hr 97.3 F-97.6 F 53-90 15-18 144-180/70-95 97 Gen: NAD at rest Heart: RRR Lung: decreased breath sounds at the bases Abd: soft, nontender Ext: compression stockings on CBC, BMP 12/28/18 07:20 12/28/18 07:20 Active Medications Acetaminophen (Tylenol -) 650 mg PO Q6H PRN PRN Reason: PAIN LEVEL 1-5 Last Admin: 12/27/18 14:10 Dose: 650 mg Amlodipine Besylate (Norvasc -) 5 mg PO DAILY [facility] Last Admin: 12/28/18 09:18 Dose: 5 mg Dextrose (D50w (Vial) -) 25 gm IVPUSH PRN PRN PRN Reason: HYPOGLYCEMIA Docusate Sodium (Colace -) 200 mg PO HS [facility] Last Admin: 12/27/18 21:54 Dose: 200 mg Ferrous Sulfate (Feosol -) 325 mg PO DAILY [facility] Last Admin: 12/28/18 09:19 Dose: 325 mg Furosemide (Lasix -) 40 mg PO BID@0600,1400 [facility] Last Admin: 12/28/18 06:35 Dose: 40 mg Heparin Sodium (Porcine) (Heparin -) 5,000 unit SQ BID [facility] Last Admin: 12/28/18 09:19 Dose: 5,000 unit Insulin Detemir (Levemir Vial) 12 units SQ HS [facility] Last Admin: 12/27/18 21:59 Dose: Not Given Insulin Detemir (Levemir Vial) 15 units SQ AM [facility] Last Admin: 12/28/18 06:34 Dose: 15 units Isosorbide Mononitrate (Imdur -) 30 mg PO DAILY [facility] Last Admin: 12/28/18 09:19 Dose: 30 mg Metoprolol Tartrate (Lopressor -) 25 mg PO BID [facility] Last Admin: 12/28/18 09:18 Dose: 25 mg Pantoprazole Sodium (Protonix -) 40 mg PO DAILY [facility] Last Admin: 12/28/18 09:18 Dose: 40 mg Rosuvastatin Calcium (Crestor -) 10 mg PO HS [facility] Last Admin: 12/27/18 21:54 Dose: 10 mg Senna (Senna -) 2 tab PO HS PRN PRN Reason: CONSTIPATION Sodium Chloride ([place] Nasal [place] -) 2 spray NS BID PRN PRN Reason: NASAL CONGESTION Valsartan (Diovan -) 320 mg PO DAILY [facility] Last Admin: 12/28/18 09:18 Dose: 320 mg A/P Acute on Chronic Systolic Heart Failure Pulmonary HTN Pleural Effusions from above HTN DM CKD Hyperlipidemia IBS GERD Anemia - continue lasix - monitor urine output, creatinine - daily weights - O2 to keep SpO2 >90% - monitor CXR with diuresis - f/u renal biopsy - DVT prophylaxis Problem List - Problems (1) Acute on chronic systolic heart failure Code(s): I50.23 - ACUTE ON CHRONIC SYSTOLIC (CONGESTIVE) HEART FAILURE
--- NOTE | 2018-12-28 12:54 | PN ---
Progress Note, Physician Chief Complaint: shortness of breath History of Present Illness: 63 year old female with a pmhx of dm, htn, hld, IBS, gerd, anemia, and chronic systolic chf (ef 40-45%) admitted with b/l LE edema and sob. Patient reports she never got furosemide from her pharmacy. Also noncompliant with some of the other meds. No chest pain, palpitations, or syncope. CXR: b/l effusions Echo 12/15/18: LVEF 40-45%, global hypokinesis, elevated LA pressure, large pleural effusion. Mod RV hypokinesis, mod TR - Current Medication List Current Medications: Active Medications Acetaminophen (Tylenol -) 650 mg PO Q6H PRN PRN Reason: PAIN LEVEL 1-5 Last Admin: 12/27/18 14:10 Dose: 650 mg Amlodipine Besylate (Norvasc -) 5 mg PO DAILY [facility] Last Admin: 12/28/18 09:18 Dose: 5 mg Dextrose (D50w (Vial) -) 25 gm IVPUSH PRN PRN PRN Reason: HYPOGLYCEMIA Docusate Sodium (Colace -) 200 mg PO HS [facility] Last Admin: 12/27/18 21:54 Dose: 200 mg Ferrous Sulfate (Feosol -) 325 mg PO DAILY [facility] Last Admin: 12/28/18 09:19 Dose: 325 mg Furosemide (Lasix -) 40 mg PO BID@0600,1400 [facility] Last Admin: 12/28/18 06:35 Dose: 40 mg Heparin Sodium (Porcine) (Heparin -) 5,000 unit SQ BID [facility] Last Admin: 12/28/18 09:19 Dose: 5,000 unit Insulin Detemir (Levemir Vial) 12 units SQ HS [facility] Last Admin: 12/27/18 21:59 Dose: Not Given Insulin Detemir (Levemir Vial) 15 units SQ AM [facility] Last Admin: 12/28/18 06:34 Dose: 15 units Isosorbide Mononitrate (Imdur -) 30 mg PO DAILY [facility] Last Admin: 12/28/18 09:19 Dose: 30 mg Metoprolol Tartrate (Lopressor -) 25 mg PO BID [facility] Last Admin: 12/28/18 09:18 Dose: 25 mg Pantoprazole Sodium (Protonix -) 40 mg PO DAILY [facility] Last Admin: 10/27/19 09:18 Dose: 40 mg Rosuvastatin Calcium (Crestor -) 10 mg PO HS [facility] Last Admin: 12/27/18 21:54 Dose: 10 mg Senna (Senna -) 2 tab PO HS PRN PRN Reason: CONSTIPATION Sodium Chloride ([place] Nasal [place] -) 2 spray NS BID PRN PRN Reason: NASAL CONGESTION Valsartan (Diovan -) 320 mg PO DAILY [facility] Last Admin: 12/28/18 09:18 Dose: 320 mg - Objective Vital Signs: Vital Signs Temperature 97.3 F L 12/28/18 04:32 Pulse Rate 74 12/28/18 08:08 Respiratory Rate 18 12/28/18 04:32 Blood Pressure 150/71 12/28/18 08:08 O2 Sat by Pulse Oximetry (%) 97 12/28/18 09:00 Constitutional: Yes: Well Nourished, No Distress, Calm Eyes: Yes: WNL, Conjunctiva Clear, EOM Intact HENT: Yes: WNL, Atraumatic, Normocephalic Neck: Yes: WNL, Supple, Trachea Midline Cardiovascular: Yes: WNL, Regular Rate and Rhythm, S1, S2 Respiratory: Yes: WNL, Regular, CTA Bilaterally Gastrointestinal: Yes: WNL, Normal Bowel Sounds, Soft ...Rectal Exam: Yes: Deferred Genitourinary: Yes: WNL Musculoskeletal: Yes: WNL Extremities: Yes: WNL Edema: No Peripheral Pulses: Left Radial: 1+, Right Radial: 1+, Left [place] Pedis: 1+, Right Dorsalis Pedis: 1+, Left Femoral: 1+, Right Femoral: 1+ Integumentary: Yes: WNL Neurological: Yes: WNL, Alert, Oriented ...Motor Strength: WNL Psychiatric: Yes: WNL Labs: CBC, BMP 12/28/18 07:20 12/28/18 07:20 INR, PTT INR 0.98 (0.83-1.09) 12/21/18 16:20 Assessment/Plan 63 year old female with a pmhx of dm, htn, hld, IBS, gerd, anemia, and chronic systolic chf (ef 40-45%) admitted with b/l LE edema and sob. Patient reports she never got furosemide from her pharmacy. Also noncompliant with some of the other meds. No chest pain, palpitations, or syncope. CXR: b/l effusions Echo 12/15/18: LVEF 40-45%, global hypokinesis, elevated LA pressure, large pleural effusion. Mod RV hypokinesis, mod TR The patient is clinically and symptomatically better. Breathing quite comfortably. switched to oral Lasix. Please continue current regimen. Low-sodium diet. No need for further cardiac workup at this point. please do not hesitate to call us PRN.
--- NOTE | 2018-12-28 16:39 | PN ---
Progress Note, Physician History of Present Illness: Pt seen and examined at bedside. She is awake and alert. She had diarrhea this morning. - Current Medication List Current Medications: Active Medications Acetaminophen (Tylenol -) 650 mg PO Q6H PRN PRN Reason: PAIN LEVEL 1-5 Last Admin: 12/27/18 14:10 Dose: 650 mg Amlodipine Besylate (Norvasc -) 5 mg PO DAILY [facility] Last Admin: 12/28/18 09:18 Dose: 5 mg Dextrose (D50w (Vial) -) 25 gm IVPUSH PRN PRN PRN Reason: HYPOGLYCEMIA Docusate Sodium (Colace -) 200 mg PO HS [facility] Last Admin: 12/27/18 21:54 Dose: 200 mg Ferrous Sulfate (Feosol -) 325 mg PO DAILY [facility] Last Admin: 12/28/18 09:19 Dose: 325 mg Furosemide (Lasix -) 40 mg PO BID@0600,1400 [facility] Last Admin: 12/28/18 13:52 Dose: 40 mg Heparin Sodium (Porcine) (Heparin -) 5,000 unit SQ BID [facility] Last Admin: 12/28/18 09:19 Dose: 5,000 unit Insulin Detemir (Levemir Vial) 12 units SQ HS [facility] Last Admin: 12/27/18 21:59 Dose: Not Given Insulin Detemir (Levemir Vial) 15 units SQ AM [facility] Last Admin: 12/28/18 06:34 Dose: 15 units Isosorbide Mononitrate (Imdur -) 30 mg PO DAILY [facility] Last Admin: 12/28/18 09:19 Dose: 30 mg Metoprolol Tartrate (Lopressor -) 25 mg PO BID [facility] Last Admin: 12/28/18 09:18 Dose: 25 mg Pantoprazole Sodium (Protonix -) 40 mg PO DAILY [facility] Last Admin: 12/28/18 09:18 Dose: 40 mg Rosuvastatin Calcium (Crestor -) 10 mg PO HS [facility] Last Admin: 12/27/18 21:54 Dose: 10 mg Senna (Senna -) 2 tab PO HS PRN PRN Reason: CONSTIPATION Sodium Chloride ([place] -) 2 spray NS BID PRN PRN Reason: NASAL CONGESTION Valsartan (Diovan -) 320 mg PO DAILY [facility] Last Admin: 12/28/18 09:18 Dose: 320 mg - Objective Vital Signs: Vital Signs Temperature 97.4 F L 12/28/18 13:59 Pulse Rate 56 L 12/28/18 13:59 Respiratory Rate 18 12/28/18 04:32 Blood Pressure 150/95 12/28/18 13:59 O2 Sat by Pulse Oximetry (%) 97 12/28/18 09:00 Constitutional: Yes: Calm Eyes: Yes: Conjunctiva Clear HENT: Yes: Atraumatic Neck: Yes: Supple Cardiovascular: Yes: S1, S2 Respiratory: Yes: CTA Bilaterally Gastrointestinal: Yes: Soft Genitourinary: Yes: WNL Musculoskeletal: Yes: WNL Edema: Yes Edema: LLE: Trace, RLE: Trace Neurological: Yes: Oriented Psychiatric: Yes: Oriented Labs: CBC, BMP 12/28/18 07:20 12/28/18 07:20 INR, PTT INR 0.98 (0.83-1.09) 12/21/18 16:20 Problem List - Problems (1) KACI (acute kidney injury) Code(s): N17.9 - ACUTE KIDNEY FAILURE, UNSPECIFIED Assessment/Plan Current Medications Generic Name Dose Route Start Last Admin Trade Name Freq PRN Reason Stop Dose Admin Acetaminophen 650 mg 12/21/18 20:13 12/27/18 14:10 Tylenol - PO 650 mg Q6H PRN Administration PAIN LEVEL 1-5 Amlodipine Besylate 5 mg 12/22/18 10:00 12/28/18 09:18 Norvasc - PO 5 mg DAILY [facility] Administration Dextrose 25 gm 12/22/18 11:41 D50w (Vial) - IVPUSH PRN PRN HYPOGLYCEMIA Docusate Sodium 200 mg 12/21/18 22:00 12/27/18 21:54 Colace - PO 200 mg HS [facility] Administration Ferrous Sulfate 325 mg 12/22/18 10:00 12/28/18 09:19 Feosol - PO 325 mg DAILY [facility] Administration Furosemide 40 mg 12/25/18 14:00 12/28/18 13:52 Lasix - PO 40 mg BID@0600,1400 [facility] Administration Heparin Sodium (Porcine) 5,000 unit 12/21/18 22:00 12/28/18 09:19 Heparin - SQ 5,000 unit BID [facility] Administration Insulin Detemir 12 units 12/21/18 22:00 12/27/18 21:59 Levemir Vial SQ Not Given HS [facility] Insulin Detemir 15 units 12/22/18 07:00 12/28/18 06:34 Levemir Vial SQ 15 units AM [facility] Administration Isosorbide Mononitrate 30 mg 12/22/18 10:00 12/28/18 09:19 Imdur - PO 30 mg DAILY [facility] Administration Metoprolol Tartrate 25 mg 12/21/18 22:00 12/28/18 09:18 Lopressor - PO 25 mg BID [facility] Administration Pantoprazole Sodium 40 mg 12/22/18 10:00 12/28/18 09:18 Protonix - PO 40 mg DAILY [facility] Administration Rosuvastatin Calcium 10 mg 12/21/18 22:00 12/27/18 21:54 Crestor - PO 10 mg HS [facility] Administration Senna 2 tab 12/25/18 11:05 Senna - PO HS PRN CONSTIPATION Sodium Chloride 2 spray 12/25/18 11:04 [place] - NS BID PRN NASAL CONGESTION Valsartan 320 mg 12/27/18 10:00 12/28/18 09:18 Diovan - PO 320 mg DAILY [facility] Administration Laboratory Tests 12/28/18 07:20 Hemoglobin A1c % 6.6 H Impression 1. KACI 2. anemia 3. proteinuria 4. pleural effusions 5. htn 6. dm 7. CHF 8. CKD Plan - renal function stable for now - cont bp meds - monitor bp - cont diovan - repeat a1c is 6.6 - keep on arb to help with proteinuria - avoid nsaids
[2018-12-28] MEDS: ROSUVASTATIN CA 10 MG TABLET (FP) PO SCH (22:07)
[2018-12-28] MEDS: DOCUSATE SODIUM 100 MG CAPSULE (FP) PO SCH (22:07)
[2018-12-29] MEDS: FUROSEMIDE 40 MG TABLET (FP) PO SCH ×2 (06:23→15:36)
[2018-12-29] MEDS: INSULIN (LEVEMIR) 100 UNITS/ML UNITS SQ SCH ×2 (06:26→21:49)
[2018-12-29] MEDS: amLODIPine BESYLATE 5 MG TABLET (FP) PO SCH (09:50)
[2018-12-29] MEDS: PANTOPRAZOLE 40 MG TABLET (FP) PO SCH (09:50)
[2018-12-29] MEDS: METOPROLOL TARTRATE 25 MG TABLET (FP) PO SCH ×2 (09:50→21:49)
[2018-12-29] MEDS: FERROUS SO4 325 MG TABLET (FP) PO SCH (09:50)
[2018-12-29] MEDS: ISOSORBIDE MONONITRATE 30 MG TAB.SR.24H (FP) PO SCH (09:51)
[2018-12-29] MEDS: VALSARTAN 160 MG TABLET (UD) PO SCH (09:51)
[2018-12-29] MEDS: HEPARIN NA (PORCINE) 5,000 UNITS/ML 1ML VIAL SQ SCH ×2 (09:51→21:49)
[2018-12-29 10:37] VITALS: BMI 27.6
--- NOTE | 2018-12-29 10:37 | PN ---
Progress Note (short form) - Note Progress Note: Resting in NAD. No CP or SOB. Still with some intermittent dizziness. No acute events overnight. Intake & Output 12/26/18 12/27/18 12/28/18 12/29/18 23:59 23:59 23:59 23:59 Intake Total 480 450 800 250 Output Total 400 Balance 80 450 800 250 Weight 147 lb 1.6 oz 147 lb 146 lb 0.5 oz Last Vital Signs Temp Pulse Resp BP Pulse Ox 97.4 F L 64 18 167/73 97 12/29/18 06:49 12/29/18 06:49 12/29/18 06:49 12/29/18 06:49 12/28/18 20:12 Active Medications Acetaminophen (Tylenol -) 650 mg PO Q6H PRN PRN Reason: PAIN LEVEL 1-5 Last Admin: 12/27/18 14:10 Dose: 650 mg Amlodipine Besylate (Norvasc -) 5 mg PO DAILY [facility] Last Admin: 12/29/18 09:50 Dose: 5 mg Dextrose (D50w (Vial) -) 25 gm IVPUSH PRN PRN PRN Reason: HYPOGLYCEMIA Docusate Sodium (Colace -) 200 mg PO HS [facility] Last Admin: 12/28/18 22:07 Dose: Not Given Ferrous Sulfate (Feosol -) 325 mg PO DAILY [facility] Last Admin: 12/29/18 09:50 Dose: 325 mg Furosemide (Lasix -) 40 mg PO BID@0600,1400 [facility] Last Admin: 12/29/18 06:23 Dose: 40 mg Heparin Sodium (Porcine) (Heparin -) 5,000 unit SQ BID [facility] Last Admin: 12/29/18 09:51 Dose: 5,000 unit Insulin Detemir (Levemir Vial) 12 units SQ HS [facility] Last Admin: 12/28/18 22:09 Dose: Not Given Insulin Detemir (Levemir Vial) 15 units SQ AM [facility] Last Admin: 12/29/18 06:26 Dose: Not Given Isosorbide Mononitrate (Imdur -) 30 mg PO DAILY [facility] Last Admin: 12/29/18 09:51 Dose: 30 mg Metoprolol Tartrate (Lopressor -) 25 mg PO BID [facility] Last Admin: 12/29/18 09:50 Dose: 25 mg Pantoprazole Sodium (Protonix -) 40 mg PO DAILY [facility] Last Admin: 12/29/18 09:50 Dose: 40 mg Rosuvastatin Calcium (Crestor -) 10 mg PO HS [facility] Last Admin: 12/28/18 22:07 Dose: 10 mg Senna (Senna -) 2 tab PO HS PRN PRN Reason: CONSTIPATION Sodium Chloride ([place] -) 2 spray NS BID PRN PRN Reason: NASAL CONGESTION Valsartan (Diovan -) 320 mg PO DAILY [facility] Last Admin: 12/29/18 09:51 Dose: 320 mg Gen: NAD at rest Heart: RRR Lung: decreased breath sounds at the bases Abd: soft, nontender Ext: (+) improving edema Laboratory Results - last 24 hr 12/28/18 12/28/18 12/28/18 16:21 17:57 22:22 POC Glucometer 61 91 85 12/29/18 06:25 POC Glucometer 122 Problem List - Problems (1) Acute on chronic systolic heart failure Code(s): I50.23 - ACUTE ON CHRONIC SYSTOLIC (CONGESTIVE) HEART FAILURE A/P Acute on Chronic Systolic Heart Failure Pulmonary HTN Pleural Effusions from above HTN DM CKD Hyperlipidemia IBS GERD Anemia - Lasix - monitor urine output, creatinine - Daily weights - O2 to keep SpO2 >90% - f/u renal biopsy - DVT prophylaxis Dr Mace
--- NOTE | 2018-12-29 10:51 | PN ---
Progress Note, Physician Chief Complaint: Acute on Chronic CHF Exacerbation CKD History of Present Illness: Previous notes and events reviewed awake and alert NAD sts having dizziness while standing BP elevated - Current Medication List Current Medications: Active Medications Acetaminophen (Tylenol -) 650 mg PO Q6H PRN PRN Reason: PAIN LEVEL 1-5 Last Admin: 12/27/18 14:10 Dose: 650 mg Amlodipine Besylate (Norvasc -) 5 mg PO DAILY [facility] Last Admin: 12/29/18 09:50 Dose: 5 mg Dextrose (D50w (Vial) -) 25 gm IVPUSH PRN PRN PRN Reason: HYPOGLYCEMIA Docusate Sodium (Colace -) 200 mg PO HS [facility] Last Admin: 12/28/18 22:07 Dose: Not Given Ferrous Sulfate (Feosol -) 325 mg PO DAILY [facility] Last Admin: 12/29/18 09:50 Dose: 325 mg Furosemide (Lasix -) 40 mg PO BID@0600,1400 [facility] Last Admin: 12/29/18 06:23 Dose: 40 mg Heparin Sodium (Porcine) (Heparin -) 5,000 unit SQ BID [facility] Last Admin: 12/29/18 09:51 Dose: 5,000 unit Insulin Detemir (Levemir Vial) 12 units SQ HS [facility] Last Admin: 12/28/18 22:09 Dose: Not Given Insulin Detemir (Levemir Vial) 15 units SQ AM [facility] Last Admin: 12/29/18 06:26 Dose: Not Given Isosorbide Mononitrate (Imdur -) 30 mg PO DAILY [facility] Last Admin: 12/29/18 09:51 Dose: 30 mg Metoprolol Tartrate (Lopressor -) 25 mg PO BID [facility] Last Admin: 12/29/18 09:50 Dose: 25 mg Pantoprazole Sodium (Protonix -) 40 mg PO DAILY [facility] Last Admin: 12/29/18 09:50 Dose: 40 mg Rosuvastatin Calcium (Crestor -) 10 mg PO HS [facility] Last Admin: 12/28/18 22:07 Dose: 10 mg Senna (Senna -) 2 tab PO HS PRN PRN Reason: CONSTIPATION Sodium Chloride ([place] -) 2 spray NS BID PRN PRN Reason: NASAL CONGESTION Valsartan (Diovan -) 320 mg PO DAILY [facility] Last Admin: 12/29/18 09:51 Dose: 320 mg - Objective Vital Signs: Vital Signs Temperature 97.4 F L 12/29/18 06:49 Pulse Rate 64 12/29/18 06:49 Respiratory Rate 18 12/29/18 06:49 Blood Pressure 167/73 12/29/18 06:49 O2 Sat by Pulse Oximetry (%) 97 12/28/18 20:12 Constitutional: Yes: No Distress, Calm Eyes: Yes: Conjunctiva Clear HENT: Yes: Atraumatic Cardiovascular: Yes: Regular Rate and Rhythm Respiratory: Yes: Regular, CTA Bilaterally Gastrointestinal: Yes: Normal Bowel Sounds, Soft Musculoskeletal: Yes: Muscle Weakness Extremities: Yes: WNL Edema: No Neurological: Yes: Alert, Oriented Psychiatric: Yes: Alert, Oriented Labs: CBC, BMP 12/28/18 07:20 12/28/18 07:20 INR, PTT INR 0.98 (0.83-1.09) 12/21/18 16:20 Microbiology 12/21/18 16:20 Blood - Peripheral Venous Blood Culture - Final NO GROWTH AFTER 5 DAYS INCUBATION 12/21/18 16:20 Blood - Peripheral Venous Blood Culture - Final NO GROWTH AFTER 5 DAYS INCUBATION 12/21/18 21:30 Urine - Urine Clean Catch Urine Culture - Final Escherichia Coli Enterococcus Faecalis Problem List - Problems (1) KACI (acute kidney injury) Assessment/Plan: -Renal on board -BUN/Cr 61.6/2.9 -monitor renal function daily -UA shows 4+ protein -s/p renal biopsy Code(s): N17.9 - ACUTE KIDNEY FAILURE, UNSPECIFIED (2) Acute on chronic congestive heart failure Assessment/Plan: -Cardiology on board -Furosemide -strict I&Os -daily weights -low Na diet -CXR shows symmetric bilateral basilar pleural effusions -repeat CXR shows timi to moderate bilateral pleural effusions -BNP 82622 Code(s): I50.9 - HEART FAILURE, UNSPECIFIED Qualifiers: Heart failure type: systolic Qualified Code(s): I50.23 - Acute on chronic systolic (congestive) heart failure (3) Diabetes Assessment/Plan: -BGM ACHS -Levemir -Dextrose 25g IVP PRN for BS <60mg/dL -HgA1c 6.6% -Dietary consult Code(s): E11.9 - TYPE 2 DIABETES MELLITUS WITHOUT COMPLICATIONS Qualifiers: Diabetes mellitus type: type 2 Diabetes mellitus detention insulin use: with detention use Diabetes mellitus complication status: with unspecified complications (4) HTN (hypertension) Assessment/Plan: -Amlodipine, Imdur, Lopressor, Valsartan -BP still elevated, increase Norvasc from 5mg to 10mg daily -low Na diet Code(s): I10 - ESSENTIAL (PRIMARY) HYPERTENSION (5) Lower extremity edema Assessment/Plan: -Furosemide -daily weights -strict I&Os Code(s): R60.0 - LOCALIZED EDEMA (6) Proteinuria Assessment/Plan: -UA shows 4+ protein -Renal on board -s/p renal biopsy Code(s): R80.9 - PROTEINURIA, UNSPECIFIED (7) Chest discomfort Assessment/Plan: -EKG reviewed -cardiology on board Code(s): R07.89 - OTHER CHEST PAIN (8) Dizziness Assessment/Plan: -Orthostatic BP Code(s): R42 - DIZZINESS AND GIDDINESS Assessment/Plan see problem list dvt ppx if BP remains stable can begin d/c planning
[2018-12-29] MEDS ORDERED: amLODIPine BESYLATE 5 MG TABLET (FP) PO ONE (11:30)
--- NOTE | 2018-12-29 14:33 | PN ---
Progress Note, Physician History of Present Illness: Pt seen and examined at bedside. She is awake and alert. She feels dizziness in improved. Her bp has been labile. - Current Medication List Current Medications: Active Medications Acetaminophen (Tylenol -) 650 mg PO Q6H PRN PRN Reason: PAIN LEVEL 1-5 Last Admin: 12/27/18 14:10 Dose: 650 mg Amlodipine Besylate (Norvasc -) 10 mg PO DAILY [facility] Dextrose (D50w (Vial) -) 25 gm IVPUSH PRN PRN PRN Reason: HYPOGLYCEMIA Docusate Sodium (Colace -) 200 mg PO HS [facility] Last Admin: 12/28/18 22:07 Dose: Not Given Ferrous Sulfate (Feosol -) 325 mg PO DAILY [facility] Last Admin: 12/29/18 09:50 Dose: 325 mg Furosemide (Lasix -) 40 mg PO BID@0600,1400 [facility] Last Admin: 12/29/18 06:23 Dose: 40 mg Heparin Sodium (Porcine) (Heparin -) 5,000 unit SQ BID [facility] Last Admin: 12/29/18 09:51 Dose: 5,000 unit Insulin Detemir (Levemir Vial) 12 units SQ HS [facility] Last Admin: 12/28/18 22:09 Dose: Not Given Insulin Detemir (Levemir Vial) 15 units SQ AM [facility] Last Admin: 12/29/18 06:26 Dose: Not Given Isosorbide Mononitrate (Imdur -) 30 mg PO DAILY [facility] Last Admin: 12/29/18 09:51 Dose: 30 mg Metoprolol Tartrate (Lopressor -) 25 mg PO BID [facility] Last Admin: 12/29/18 09:50 Dose: 25 mg Pantoprazole Sodium (Protonix -) 40 mg PO DAILY [facility] Last Admin: 12/29/18 09:50 Dose: 40 mg Rosuvastatin Calcium (Crestor -) 10 mg PO HS [facility] Last Admin: 12/28/18 22:07 Dose: 10 mg Senna (Senna -) 2 tab PO HS PRN PRN Reason: CONSTIPATION Sodium Chloride ([place] -) 2 spray NS BID PRN PRN Reason: NASAL CONGESTION Valsartan (Diovan -) 320 mg PO DAILY [facility] Last Admin: 12/29/18 09:51 Dose: 320 mg - Objective Vital Signs: Vital Signs Temperature 97.7 F 12/29/18 10:00 Pulse Rate 64 12/29/18 10:00 Respiratory Rate 18 12/29/18 10:00 Blood Pressure 194/90 H 12/29/18 13:39 O2 Sat by Pulse Oximetry (%) 97 12/28/18 20:12 Constitutional: Yes: Calm Eyes: Yes: Conjunctiva Clear HENT: Yes: Atraumatic Cardiovascular: Yes: S1, S2 Respiratory: Yes: CTA Bilaterally Gastrointestinal: Yes: Normal Bowel Sounds, Soft Genitourinary: Yes: WNL Musculoskeletal: Yes: WNL Edema: Yes Edema: LLE: Trace, RLE: Trace Neurological: Yes: Oriented Psychiatric: Yes: Oriented Labs: CBC, BMP 12/28/18 07:20 12/28/18 07:20 INR, PTT INR 0.98 (0.83-1.09) 12/21/18 16:20 Problem List - Problems (1) KACI (acute kidney injury) Code(s): N17.9 - ACUTE KIDNEY FAILURE, UNSPECIFIED Assessment/Plan Current Medications Generic Name Dose Route Start Last Admin Trade Name Freq PRN Reason Stop Dose Admin Acetaminophen 650 mg 12/21/18 20:13 12/27/18 14:10 Tylenol - PO 650 mg Q6H PRN Administration PAIN LEVEL 1-5 Amlodipine Besylate 10 mg 12/29/18 10:50 Norvasc - PO DAILY [facility] Dextrose 25 gm 12/22/18 11:41 D50w (Vial) - IVPUSH PRN PRN HYPOGLYCEMIA Docusate Sodium 200 mg 12/21/18 22:00 12/28/18 22:07 Colace - PO Not Given HS [facility] Ferrous Sulfate 325 mg 12/22/18 10:00 12/29/18 09:50 Feosol - PO 325 mg DAILY [facility] Administration Furosemide 40 mg 12/25/18 14:00 12/29/18 06:23 Lasix - PO 40 mg BID@0600,1400 [facility] Administration Heparin Sodium (Porcine) 5,000 unit 12/21/18 22:00 12/29/18 09:51 Heparin - SQ 5,000 unit BID [facility] Administration Insulin Detemir 12 units 12/21/18 22:00 12/28/18 22:09 Levemir Vial SQ Not Given HS [facility] Insulin Detemir 15 units 12/22/18 07:00 12/29/18 06:26 Levemir Vial SQ Not Given AM [facility] Isosorbide Mononitrate 30 mg 12/22/18 10:00 12/29/18 09:51 Imdur - PO 30 mg DAILY [facility] Administration Metoprolol Tartrate 25 mg 12/21/18 22:00 12/29/18 09:50 Lopressor - PO 25 mg BID [facility] Administration Pantoprazole Sodium 40 mg 12/22/18 10:00 12/29/18 09:50 Protonix - PO 40 mg DAILY [facility] Administration Rosuvastatin Calcium 10 mg 12/21/18 22:00 12/28/18 22:07 Crestor - PO 10 mg HS [facility] Administration Senna 2 tab 12/25/18 11:05 Senna - PO HS PRN CONSTIPATION Sodium Chloride 2 spray 12/25/18 11:04 [place] Nas[place] - NS BID PRN NASAL CONGESTION Valsartan 320 mg 12/27/18 10:00 12/29/18 09:51 Diovan - PO 320 mg DAILY [facility] Administration Impression 1. KACI 2. anemia 3. proteinuria 4. pleural effusions 5. htn 6. dm 7. CHF 8. CKD Plan - cont lasix - amlodipine increased - add hydralazine if bp not improved - cont diovan - repeat labs in am - avoid nsaids
[2018-12-29] MEDS: ROSUVASTATIN CA 10 MG TABLET (FP) PO SCH (21:49)
[2018-12-29] MEDS: DOCUSATE SODIUM 100 MG CAPSULE (FP) PO SCH (21:49)
[2018-12-30] MEDS: FUROSEMIDE 40 MG TABLET (FP) PO SCH ×2 (06:27→15:04)
[2018-12-30] MEDS: INSULIN (LEVEMIR) 100 UNITS/ML UNITS SQ SCH ×2 (06:27→21:32)
[2018-12-30 07:41] LABS: HEMATOCRIT 29.9 % (32.4-45.2); HEMOGLOBIN 9.7 GM/dL (10.7-15.3); MCH 26.4 pg (25.7-33.7); MCHC 32.5 g/dl (32.0-36.0); MEAN CELL VOLUME 81.1 fl (80-96); MEAN PLT VOLUME 7.2 fl (7.5-11.1); PLATELET COUNT 189 K/MM3 (134-434); RBC 3.68 M/mm3 (3.60-5.2); RDW 19.5 % (11.6-15.6); WHITE BLOOD COUNT 5.3 K/mm3 (4.0-10.0)
[2018-12-30 08:05] LABS: ALBUMIN 2.5 g/dl (3.4-5.0); BILIRUBIN,TOTAL 0.3 mg/dL (0.2-1); BLOOD UREA NITROGEN 64.2 mg/dL (7-18); CALCIUM 8.9 mg/dL (8.5-10.1); CREATININE 2.8 mg/dL (0.55-1.3); POTASSIUM 3.9 mmol/L (3.5-5.1)
[2018-12-30] MEDS: ISOSORBIDE MONONITRATE 30 MG TAB.SR.24H (FP) PO SCH (10:20)
[2018-12-30] MEDS: METOPROLOL TARTRATE 25 MG TABLET (FP) PO SCH ×2 (10:20→21:32)
[2018-12-30] MEDS: VALSARTAN 160 MG TABLET (UD) PO SCH (10:20)
[2018-12-30] MEDS: amLODIPine BESYLATE 10 MG TABLET (FP) PO SCH (10:20)
[2018-12-30] MEDS: FERROUS SO4 325 MG TABLET (FP) PO SCH (10:20)
[2018-12-30] MEDS: PANTOPRAZOLE 40 MG TABLET (FP) PO SCH (10:20)
[2018-12-30] MEDS: HEPARIN NA (PORCINE) 5,000 UNITS/ML 1ML VIAL SQ SCH ×2 (10:21→21:32)
--- NOTE | 2018-12-30 10:41 | PN ---
Progress Note (short form) - Note Progress Note: Resting in NAD. No CP or SOB. No acute events overnight. Intake & Output 12/27/18 12/28/18 12/29/18 12/30/18 23:59 23:59 23:59 23:59 Intake Total 450 800 880 30 Balance 450 800 880 30 Weight 147 lb 146 lb 142 lb Last Vital Signs Temp Pulse Resp BP Pulse Ox 98.1 F 70 18 159/77 97 12/30/18 06:00 12/30/18 06:10 12/30/18 06:10 12/30/18 06:10 12/29/18 20:32 Active Medications Acetaminophen (Tylenol -) 650 mg PO Q6H PRN PRN Reason: PAIN LEVEL 1-5 Last Admin: 12/27/18 14:10 Dose: 650 mg Amlodipine Besylate (Norvasc -) 10 mg PO DAILY [facility] Last Admin: 12/30/18 10:20 Dose: 10 mg Dextrose (D50w (Vial) -) 25 gm IVPUSH PRN PRN PRN Reason: HYPOGLYCEMIA Docusate Sodium (Colace -) 200 mg PO HS [facility] Last Admin: 12/29/18 21:49 Dose: Not Given Ferrous Sulfate (Feosol -) 325 mg PO DAILY [facility] Last Admin: 12/30/18 10:20 Dose: 325 mg Furosemide (Lasix -) 40 mg PO BID@0600,1400 [facility] Last Admin: 12/30/18 06:27 Dose: 40 mg Heparin Sodium (Porcine) (Heparin -) 5,000 unit SQ BID [facility] Last Admin: 12/30/18 10:21 Dose: 5,000 unit Insulin Detemir (Levemir Vial) 12 units SQ HS [facility] Last Admin: 12/29/18 21:49 Dose: Not Given Insulin Detemir (Levemir Vial) 15 units SQ AM [facility] Last Admin: 12/30/18 06:27 Dose: Not Given Isosorbide Mononitrate (Imdur -) 30 mg PO DAILY [facility] Last Admin: 12/30/18 10:20 Dose: 30 mg Metoprolol Tartrate (Lopressor -) 25 mg PO BID [facility] Last Admin: 12/30/18 10:20 Dose: 25 mg Pantoprazole Sodium (Protonix -) 40 mg PO DAILY [facility] Last Admin: 12/30/18 10:20 Dose: 40 mg Rosuvastatin Calcium (Crestor -) 10 mg PO HS [facility] Last Admin: 12/29/18 21:49 Dose: 10 mg Senna (Senna -) 2 tab PO HS PRN PRN Reason: CONSTIPATION Sodium Chloride ([place] -) 2 spray NS BID PRN PRN Reason: NASAL CONGESTION Last Admin: 12/30/18 10:21 Dose: 2 sprays Valsartan (Diovan -) 320 mg PO DAILY [facility] Last Admin: 12/30/18 10:20 Dose: 320 mg Gen: NAD at rest Heart: RRR Lung: decreased breath sounds at the bases Abd: soft, nontender Ext: (+) improving edema Laboratory Results - last 24 hr 12/29/18 12/29/18 12/29/18 11:45 17:09 21:48 WBC RBC Hgb Hct MCV MCH MCHC RDW Plt Count MPV Sodium Potassium Chloride Carbon Dioxide Anion Gap BUN Creatinine Est GFR (CKD-EPI)AfAm Est GFR (CKD-EPI)NonAf POC Glucometer 149 156 143 Random Glucose Calcium Total Bilirubin AST ALT Alkaline Phosphatase Total Protein Albumin 12/30/18 12/30/18 12/30/18 06:25 07:10 07:10 WBC 5.3 RBC 3.68 Hgb 9.7 L Hct 29.9 L MCV 81.1 MCH 26.4 MCHC 32.5 RDW 19.5 H Plt Count 189 MPV 7.2 L Sodium 141 Potassium 3.9 Chloride 105 Carbon Dioxide 26 Anion Gap 10 BUN 64.2 H Creatinine 2.8 H Est GFR (CKD-EPI)AfAm 20.14 Est GFR (CKD-EPI)NonAf 17.38 POC Glucometer 127 Random Glucose 120 H Calcium 8.9 Total Bilirubin 0.3 AST 18 ALT 18 Alkaline Phosphatase 88 Total Protein 6.0 L Albumin 2.5 L Problem List - Problems (1) Acute on chronic systolic heart failure Code(s): I50.23 - ACUTE ON CHRONIC SYSTOLIC (CONGESTIVE) HEART FAILURE A/P Acute on Chronic Systolic Heart Failure Pulmonary HTN Pleural Effusions from above HTN DM CKD Hyperlipidemia IBS GERD Anemia - Lasix - monitor urine output, creatinine - Daily weights - O2 to keep SpO2 >90% - DVT prophylaxis Dr Mace
--- NOTE | 2018-12-30 13:58 | DS ---
Physical Examination Vital Signs: Vital Signs Temperature 98.1 F 12/30/18 06:00 Pulse Rate 70 12/30/18 06:10 Respiratory Rate 18 12/30/18 06:10 Blood Pressure 159/77 12/30/18 06:10 O2 Sat by Pulse Oximetry (%) 97 12/29/18 20:32 Findings/Remarks: Laboratory Results - last 24 hr 12/29/18 12/29/18 12/30/18 17:09 21:48 06:25 WBC RBC Hgb Hct MCV MCH MCHC RDW Plt Count MPV Sodium Potassium Chloride Carbon Dioxide Anion Gap BUN Creatinine Est GFR (CKD-EPI)AfAm Est GFR (CKD-EPI)NonAf POC Glucometer 156 143 127 Random Glucose Calcium Total Bilirubin AST ALT Alkaline Phosphatase Total Protein Albumin 12/30/18 12/30/18 12/30/18 07:10 07:10 11:51 WBC 5.3 RBC 3.68 Hgb 9.7 L Hct 29.9 L MCV 81.1 MCH 26.4 MCHC 32.5 RDW 19.5 H Plt Count 189 MPV 7.2 L Sodium 141 Potassium 3.9 Chloride 105 Carbon Dioxide 26 Anion Gap 10 BUN 64.2 H Creatinine 2.8 H Est GFR (CKD-EPI)AfAm 20.14 Est GFR (CKD-EPI)NonAf 17.38 POC Glucometer 136 Random Glucose 120 H Calcium 8.9 Total Bilirubin 0.3 AST 18 ALT 18 Alkaline Phosphatase 88 Total Protein 6.0 L Albumin 2.5 L Active Medications Generic Name Dose Route Start Last Admin Trade Name Freq PRN Reason Stop Dose Admin Acetaminophen 650 mg 12/21/18 20:13 12/27/18 14:10 Tylenol - PO 650 mg Q6H PRN Administration PAIN LEVEL 1-5 Amlodipine Besylate 10 mg 12/29/18 10:50 12/30/18 10:20 Norvasc - PO 10 mg DAILY SUSAN Administration Dextrose 25 gm 12/22/18 11:41 D50w (Vial) - IVPUSH PRN PRN HYPOGLYCEMIA Docusate Sodium 200 mg 12/21/18 22:00 12/29/18 21:49 Colace - PO Not Given HS SUSAN Ferrous Sulfate 325 mg 12/22/18 10:00 12/30/18 10:20 Feosol - PO 325 mg DAILY SUSAN Administration Furosemide 40 mg 12/25/18 14:00 12/30/18 06:27 Lasix - PO 40 mg BID@0600,1400 SUSAN Administration Heparin Sodium (Porcine) 5,000 unit 12/21/18 22:00 12/30/18 10:21 Heparin - SQ 5,000 unit BID SUSAN Administration Insulin Detemir 12 units 12/21/18 22:00 12/29/18 21:49 Levemir Vial SQ Not Given HS SUSAN Insulin Detemir 15 units 12/22/18 07:00 12/30/18 06:27 Levemir Vial SQ Not Given [facility] Isosorbide Mononitrate 30 mg 12/22/18 10:00 12/30/18 10:20 Imdur - PO 30 mg DAILY SUSAN Administration Metoprolol Tartrate 25 mg 12/21/18 22:00 12/30/18 10:20 Lopressor - PO 25 mg BID SUSAN Administration Pantoprazole Sodium 40 mg 12/22/18 10:00 12/30/18 10:20 Protonix - PO 40 mg DAILY SUSAN Administration Rosuvastatin Calcium 10 mg 12/21/18 22:00 12/29/18 21:49 Crestor - PO 10 mg HS SUSAN Administration Senna 2 tab 12/25/18 11:05 Senna - PO HS PRN CONSTIPATION Sodium Chloride 2 spray 12/25/18 11:04 12/30/18 10:21 [place] Nasal [place] - NS 2 sprays BID PRN Administration NASAL CONGESTION Valsartan 320 mg 12/27/18 10:00 12/30/18 10:20 Diovan - PO 320 mg DAILY SUSAN Administration Microbiology 12/21/18 16:20 Blood - Peripheral Venous Blood Culture - Final NO GROWTH AFTER 5 DAYS INCUBATION 12/21/18 16:20 Blood - Peripheral Venous Blood Culture - Final NO GROWTH AFTER 5 DAYS INCUBATION 12/21/18 21:30 Urine - Urine Clean Catch Urine Culture - Final Escherichia Coli Enterococcus Faecalis Constitutional: Yes: No Distress, Calm Eyes: Yes: Conjunctiva Clear HENT: Yes: Atraumatic Cardiovascular: Yes: Regular Rate and Rhythm Respiratory: Yes: Regular, CTA Bilaterally Gastrointestinal: Yes: Normal Bowel Sounds, Soft Musculoskeletal: Yes: Muscle Weakness Extremities: Yes: WNL Edema: Yes Edema: LLE: Trace, RLE: Trace Neurological: Yes: Alert, Oriented Psychiatric: Yes: Alert, Oriented Labs: CBC, BMP 12/30/18 07:10 12/30/18 07:10 Discharge Summary Problems reviewed: Yes Reason For Visit: ACUTE ON CHRONIC CONGESTIVE HEART FAILURE Current Active Problems KACI (acute kidney injury) (Acute) Acute on chronic congestive heart failure (Acute) Acute on chronic systolic heart failure (Acute) Asymptomatic bacteriuria (Acute) Dizziness (Acute) Hypothermia due to cold environment (Acute) Nausea (Acute) Hospital Course: 63 year old female with PMH of CHF, HTN, HLD, DM, IBS, GERD, Anemia arrived to ED for evaluation of worsening b/l LE edema +2/3, Chills, minimal SOB. As per patient she was never given Lasix when discharged last visit, patient has been noncompliant with medication since discharge. As per ED note according to family friend there is no heat in the apartment. Patient denies CP, Dizziness, headache, N/V,C/D, no urinary symptoms. While in patient noted with 4+ protein in urine, nephrology consulted. Renal biopsy performed. Had episodes of HTN and cardiology consulted, adjustments made to regimen and BP has been stable. Condition: Stable - Instructions Diet, Activity, Other Instructions: follow up with PMD in 2 weeks of discharge follow up with [facility] Dr Story for renal biopsy results follow up [facility] Dr Olivarez 1L fluid restriction low sodium diet continue with medication regimen as prescribed return to ER if develop severe pain, chest pain, respiratory distress Referrals: Red Olivarez MD [Staff Physician] - Meghan Naidu MD [Primary Care Provider] - Taylor Story MD [Staff Physician] - Disposition: LONG-TERM FACILITY - Home Medications Comprehensive Discharge Medication List: Ambulatory Orders Insulin (Levemir) [Levemir Vial] 12 units SQ HS ml 06/22/15 Insulin (Levemir) [Levemir Vial] 15 units SQ AM ml 06/22/15 Multivitamins [Multivit ([facility] Formulary)] 1 tab PO DAILY tab 06/22/15 Ammonium Lactate Cream [Lac-Hydrin 12% Cream -] 1 applic TP DAILY #1 tube Ferrous Sulfate [Feosol] 325 mg PO DAILY #30 ud 03/05/18 Hydrocortisone 1% Ointment [Hytone 1% Ointment -] 1 applic TP DAILY #1 tube 04/22 Pantoprazole Sodium [Protonix -] 40 mg PO BID #60 tablet.ec 03/05/18 Acetaminophen [Tylenol .Regular Strength -] 650 mg PO Q6H PRN tablet 12/18/18 Docusate Sodium [Colace -] 300 mg PO HS capsule 12/18/18 Furosemide [Lasix -] 40 mg PO BID@0600,1400 tablet 12/18/18 Insulin Sliding Scale [Novolog Vial Sliding Scale -] 1 vial SQ ACHS units 12/18 Isosorbide Mononitrate [Imdur -] 30 mg PO DAILY #30 tab.sr.24h 12/18/18 Metoprolol Tartrate [Lopressor -] 25 mg PO BID #60 tablet 12/18/18 Rosuvastatin [Crestor -] 10 mg PO HS #30 tablet 12/18/18 Acetaminophen [Tylenol .Regular Strength -] 650 mg PO Q6H PRN tablet 12/30/18 Amlodipine Besylate [Norvasc -] 10 mg PO DAILY tablet 12/30/18 Furosemide [Lasix -] 40 mg PO BID@0600,1400 tablet 12/30/18 Sennosides [Senna -] 2 tab PO HS PRN tablet 12/30/18 Sodium Chloride Nasal [place] [[place] Nas[place] -] 2 spray NS BID PRN spray 12/30/18 Valsartan [Diovan] 320 mg PO DAILY tablet 12/30/18
--- NOTE | 2018-12-30 16:28 | PN ---
Progress Note, Physician History of Present Illness: Pt seen and examine at bedside. She is awake and alert. She denies shortness of breath. She is asking to go to rehab. - Current Medication List Current Medications: Active Medications Acetaminophen (Tylenol -) 650 mg PO Q6H PRN PRN Reason: PAIN LEVEL 1-5 Last Admin: 12/27/18 14:10 Dose: 650 mg Amlodipine Besylate (Norvasc -) 10 mg PO DAILY [facility] Last Admin: 12/30/18 10:20 Dose: 10 mg Dextrose (D50w (Vial) -) 25 gm IVPUSH PRN PRN PRN Reason: HYPOGLYCEMIA Docusate Sodium (Colace -) 200 mg PO HS [facility] Last Admin: 12/29/18 21:49 Dose: Not Given Ferrous Sulfate (Feosol -) 325 mg PO DAILY [facility] Last Admin: 12/30/18 10:20 Dose: 325 mg Furosemide (Lasix -) 40 mg PO BID@0600,1400 [facility] Last Admin: 12/30/18 15:04 Dose: 40 mg Heparin Sodium (Porcine) (Heparin -) 5,000 unit SQ BID [facility] Last Admin: 12/30/18 10:21 Dose: 5,000 unit Insulin Detemir (Levemir Vial) 12 units SQ HS [facility] Last Admin: 12/29/18 21:49 Dose: Not Given Insulin Detemir (Levemir Vial) 15 units SQ AM [facility] Last Admin: 12/30/18 06:27 Dose: Not Given Isosorbide Mononitrate (Imdur -) 30 mg PO DAILY [facility] Last Admin: 12/30/18 10:20 Dose: 30 mg Metoprolol Tartrate (Lopressor -) 25 mg PO BID [facility] Last Admin: 12/30/18 10:20 Dose: 25 mg Pantoprazole Sodium (Protonix -) 40 mg PO DAILY [facility] Last Admin: 12/30/18 10:20 Dose: 40 mg Rosuvastatin Calcium (Crestor -) 10 mg PO HS [facility] Last Admin: 12/29/18 21:49 Dose: 10 mg Senna (Senna -) 2 tab PO HS PRN PRN Reason: CONSTIPATION Sodium Chloride ([place] Nasal [place] -) 2 spray NS BID PRN PRN Reason: NASAL CONGESTION Last Admin: 12/30/18 10:21 Dose: 2 sprays Valsartan (Diovan -) 320 mg PO DAILY [facility] Last Admin: 12/30/18 10:20 Dose: 320 mg - Objective Vital Signs: Vital Signs Temperature 98.5 F 12/30/18 15:00 Pulse Rate 62 12/30/18 15:00 Respiratory Rate 18 12/30/18 15:00 Blood Pressure 148/70 12/30/18 15:00 O2 Sat by Pulse Oximetry (%) 97 12/29/18 20:32 Constitutional: Yes: Calm Eyes: Yes: Conjunctiva Clear HENT: Yes: Atraumatic Neck: Yes: Supple Cardiovascular: Yes: S1, S2 Respiratory: Yes: CTA Bilaterally Gastrointestinal: Yes: Soft Genitourinary: Yes: WNL Musculoskeletal: Yes: WNL Edema: No Neurological: Yes: Oriented Psychiatric: Yes: Oriented Labs: CBC, BMP 12/30/18 07:10 12/30/18 07:10 INR, PTT INR 0.98 (0.83-1.09) 12/21/18 16:20 Problem List - Problems (1) KACI (acute kidney injury) Code(s): N17.9 - ACUTE KIDNEY FAILURE, UNSPECIFIED Assessment/Plan Current Medications Generic Name Dose Route Start Last Admin Trade Name Freq PRN Reason Stop Dose Admin Acetaminophen 650 mg 12/21/18 20:13 12/27/18 14:10 Tylenol - PO 650 mg Q6H PRN Administration PAIN LEVEL 1-5 Amlodipine Besylate 10 mg 12/29/18 10:50 12/30/18 10:20 Norvasc - PO 10 mg DAILY SUSAN Administration Dextrose 25 gm 12/22/18 11:41 D50w (Vial) - IVPUSH PRN PRN HYPOGLYCEMIA Docusate Sodium 200 mg 12/21/18 22:00 12/29/18 21:49 Colace - PO Not Given HS SUSAN Ferrous Sulfate 325 mg 12/22/18 10:00 12/30/18 10:20 Feosol - PO 325 mg DAILY SUSAN Administration Furosemide 40 mg 12/25/18 14:00 12/30/18 15:04 Lasix - PO 40 mg BID@0600,1400 SUSAN Administration Heparin Sodium (Porcine) 5,000 unit 12/21/18 22:00 12/30/18 10:21 Heparin - SQ 5,000 unit BID SUSAN Administration Insulin Detemir 12 units 12/21/18 22:00 12/29/18 21:49 Levemir Vial SQ Not Given HS SUSAN Insulin Detemir 15 units 12/22/18 07:00 12/30/18 06:27 Levemir Vial SQ Not Given AM [facility] Isosorbide Mononitrate 30 mg 12/22/18 10:00 12/30/18 10:20 Imdur - PO 30 mg DAILY SUSAN Administration Metoprolol Tartrate 25 mg 12/21/18 22:00 12/30/18 10:20 Lopressor - PO 25 mg BID SUSAN Administration Pantoprazole Sodium 40 mg 12/22/18 10:00 12/30/18 10:20 Protonix - PO 40 mg DAILY SUSAN Administration Rosuvastatin Calcium 10 mg 12/21/18 22:00 12/29/18 21:49 Crestor - PO 10 mg HS SUSAN Administration Senna 2 tab 12/25/18 11:05 Senna - PO HS PRN CONSTIPATION Sodium Chloride 2 spray 12/25/18 11:04 12/30/18 10:21 [place] Nasal [place] - NS 2 sprays BID PRN Administration NASAL CONGESTION Valsartan 320 mg 12/27/18 10:00 12/30/18 10:20 Diovan - PO 320 mg DAILY SUSAN Administration Impression 1. KACI 2. anemia 3. proteinuria 4. pleural effusions 5. htn 6. dm 7. CHF 8. CKD Plan - cont diovan - cont lasix - will need to see as outpt - kidney biopsy with diabetic disease - monitor bp, stable today - avoid nsaids
[2018-12-30] MEDS: DOCUSATE SODIUM 100 MG CAPSULE (FP) PO SCH (21:32)
[2018-12-30] MEDS: ROSUVASTATIN CA 10 MG TABLET (FP) PO SCH (21:32)
[2018-12-30] MEDS: ACETAMINOPHEN 325 MG TABLET (FP) PO PRN (21:36)
[2018-12-31] MEDS: FUROSEMIDE 40 MG TABLET (FP) PO SCH (06:25)
[2018-12-31] MEDS: INSULIN (LEVEMIR) 100 UNITS/ML UNITS SQ SCH (06:26)
--- NOTE | 2018-12-31 09:32 | PN ---
Progress Note, Physician Chief Complaint: Acute on Chronic CHF Exacerbation CKD History of Present Illness: Previous notes and events reviewed awake and alert NAD denies chest pain or SOB pending insurance authorization for SNF placement - Current Medication List Current Medications: Active Medications Acetaminophen (Tylenol -) 650 mg PO Q6H PRN PRN Reason: PAIN LEVEL 1-5 Last Admin: 12/30/18 21:36 Dose: 650 mg Amlodipine Besylate (Norvasc -) 10 mg PO DAILY [facility] Last Admin: 12/30/18 10:20 Dose: 10 mg Dextrose (D50w (Vial) -) 25 gm IVPUSH PRN PRN PRN Reason: HYPOGLYCEMIA Docusate Sodium (Colace -) 200 mg PO HS [facility] Last Admin: 12/30/18 21:32 Dose: 200 mg Ferrous Sulfate (Feosol -) 325 mg PO DAILY [facility] Last Admin: 12/30/18 10:20 Dose: 325 mg Furosemide (Lasix -) 40 mg PO BID@0600,1400 [facility] Last Admin: 12/31/18 06:25 Dose: 40 mg Heparin Sodium (Porcine) (Heparin -) 5,000 unit SQ BID [facility] Last Admin: 12/30/18 21:32 Dose: 5,000 unit Insulin Detemir (Levemir Vial) 12 units SQ HS [facility] Last Admin: 12/30/18 21:32 Dose: Not Given Insulin Detemir (Levemir Vial) 15 units SQ AM [facility] Last Admin: 12/31/18 06:26 Dose: Not Given Isosorbide Mononitrate (Imdur -) 30 mg PO DAILY [facility] Last Admin: 12/30/18 10:20 Dose: 30 mg Metoprolol Tartrate (Lopressor -) 25 mg PO BID [facility] Last Admin: 12/30/18 21:32 Dose: 25 mg Pantoprazole Sodium (Protonix -) 40 mg PO DAILY [facility] Last Admin: 12/30/18 10:20 Dose: 40 mg Rosuvastatin Calcium (Crestor -) 10 mg PO HS [facility] Last Admin: 12/30/18 21:32 Dose: 10 mg Senna (Senna -) 2 tab PO HS PRN PRN Reason: CONSTIPATION Sodium Chloride ([place] Nasal [place] -) 2 spray NS BID PRN PRN Reason: NASAL CONGESTION Last Admin: 12/30/18 10:21 Dose: 2 sprays Valsartan (Diovan -) 320 mg PO DAILY [facility] Last Admin: 12/30/18 10:20 Dose: 320 mg - Objective Vital Signs: Vital Signs Temperature 97.5 F L 12/31/18 06:11 Pulse Rate 65 12/31/18 06:11 Respiratory Rate 18 12/31/18 06:11 Blood Pressure 151/75 12/31/18 06:11 O2 Sat by Pulse Oximetry (%) 97 12/30/18 09:00 Constitutional: Yes: No Distress, Calm Eyes: Yes: Conjunctiva Clear HENT: Yes: Atraumatic Cardiovascular: Yes: Regular Rate and Rhythm Respiratory: Yes: Regular, CTA Bilaterally Gastrointestinal: Yes: Normal Bowel Sounds, Soft Musculoskeletal: Yes: Muscle Weakness Extremities: Yes: WNL Edema: No Neurological: Yes: Alert, Oriented Psychiatric: Yes: Alert, Oriented Labs: CBC, BMP 12/30/18 07:10 12/30/18 07:10 INR, PTT INR 0.98 (0.83-1.09) 12/21/18 16:20 Microbiology 12/21/18 16:20 Blood - Peripheral Venous Blood Culture - Final NO GROWTH AFTER 5 DAYS INCUBATION 12/21/18 16:20 Blood - Peripheral Venous Blood Culture - Final NO GROWTH AFTER 5 DAYS INCUBATION 12/21/18 21:30 Urine - Urine Clean Catch Urine Culture - Final Escherichia Coli Enterococcus Faecalis Problem List - Problems (1) KACI (acute kidney injury) Assessment/Plan: -Renal on board -BUN/Cr 64.2/2.8 -monitor renal function daily -UA shows 4+ protein -s/p renal biopsy Code(s): N17.9 - ACUTE KIDNEY FAILURE, UNSPECIFIED (2) Acute on chronic congestive heart failure Assessment/Plan: -Cardiology on board -Furosemide -strict I&Os -daily weights -low Na diet -CXR shows symmetric bilateral basilar pleural effusions -repeat CXR shows timi to moderate bilateral pleural effusions Code(s): I50.9 - HEART FAILURE, UNSPECIFIED Qualifiers: Heart failure type: systolic Qualified Code(s): I50.23 - Acute on chronic systolic (congestive) heart failure (3) Diabetes Assessment/Plan: -BGM ACHS -Levemir -Dextrose 25g IVP PRN for BS <60mg/dL -HgA1c 6.6% -Dietary consult Code(s): E11.9 - TYPE 2 DIABETES MELLITUS WITHOUT COMPLICATIONS Qualifiers: Diabetes mellitus type: type 2 Diabetes mellitus food and beverage outlets manager insulin use: with food and beverage outlets manager use Diabetes mellitus complication status: with unspecified complications (4) HTN (hypertension) Assessment/Plan: -Amlodipine, Imdur, Lopressor, Valsartan -low Na diet Code(s): I10 - ESSENTIAL (PRIMARY) HYPERTENSION (5) Lower extremity edema Assessment/Plan: -Furosemide -daily weights -strict I&Os Code(s): R60.0 - LOCALIZED EDEMA (6) Proteinuria Assessment/Plan: -UA shows 4+ protein -Renal on board -s/p renal biopsy Code(s): R80.9 - PROTEINURIA, UNSPECIFIED (7) Chest discomfort Assessment/Plan: -EKG reviewed -cardiology on board Code(s): R07.89 - OTHER CHEST PAIN (8) Dizziness Assessment/Plan: -Orthostatic BP Code(s): R42 - DIZZINESS AND GIDDINESS Assessment/Plan see problem list dvt ppx pending SNF acceptance
[2018-12-31] MEDS ORDERED: PT OWN MED DRAWER 7, Y5N ONE (10:53)
[2018-12-31] MEDS: VALSARTAN 160 MG TABLET (UD) PO SCH (11:04)
[2018-12-31] MEDS: METOPROLOL TARTRATE 25 MG TABLET (FP) PO SCH (11:05)
[2018-12-31] MEDS: HEPARIN NA (PORCINE) 5,000 UNITS/ML 1ML VIAL SQ SCH (11:05)
[2018-12-31] MEDS: FERROUS SO4 325 MG TABLET (FP) PO SCH (11:05)
[2018-12-31] MEDS: PANTOPRAZOLE 40 MG TABLET (FP) PO SCH (11:05)
[2018-12-31] MEDS: ISOSORBIDE MONONITRATE 30 MG TAB.SR.24H (FP) PO SCH (11:05)
[2018-12-31] MEDS: amLODIPine BESYLATE 10 MG TABLET (FP) PO SCH (11:05)
--- NOTE | 2018-12-31 13:00 | PN ---
Progress Note, Physician History of Present Illness: Pt seen and examined at bedside. She is awake and alert. She denies shortness of breath. - Current Medication List Current Medications: Active Medications Acetaminophen (Tylenol -) 650 mg PO Q6H PRN PRN Reason: PAIN LEVEL 1-5 Last Admin: 12/30/18 21:36 Dose: 650 mg Amlodipine Besylate (Norvasc -) 10 mg PO DAILY [facility] Last Admin: 12/31/18 11:05 Dose: 10 mg Dextrose (D50w (Vial) -) 25 gm IVPUSH PRN PRN PRN Reason: HYPOGLYCEMIA Docusate Sodium (Colace -) 200 mg PO HS [facility] Last Admin: 12/30/18 21:32 Dose: 200 mg Ferrous Sulfate (Feosol -) 325 mg PO DAILY [facility] Last Admin: 12/31/18 11:05 Dose: 325 mg Furosemide (Lasix -) 40 mg PO BID@0600,1400 [facility] Last Admin: 12/31/18 06:25 Dose: 40 mg Heparin Sodium (Porcine) (Heparin -) 5,000 unit SQ BID [facility] Last Admin: 12/31/18 11:05 Dose: 5,000 unit Insulin Detemir (Levemir Vial) 12 units SQ HS [facility] Last Admin: 12/30/18 21:32 Dose: Not Given Insulin Detemir (Levemir Vial) 15 units SQ AM [facility] Last Admin: 12/31/18 06:26 Dose: Not Given Isosorbide Mononitrate (Imdur -) 30 mg PO DAILY [facility] Last Admin: 12/31/18 11:05 Dose: 30 mg Metoprolol Tartrate (Lopressor -) 25 mg PO BID [facility] Last Admin: 12/31/18 11:05 Dose: 25 mg Pantoprazole Sodium (Protonix -) 40 mg PO DAILY [facility] Last Admin: 12/31/18 11:05 Dose: 40 mg Rosuvastatin Calcium (Crestor -) 10 mg PO HS [facility] Last Admin: 12/30/18 21:32 Dose: 10 mg Senna (Senna -) 2 tab PO HS PRN PRN Reason: CONSTIPATION Sodium Chloride ([place] Nasal [place] -) 2 spray NS BID PRN PRN Reason: NASAL CONGESTION Last Admin: 12/30/18 10:21 Dose: 2 sprays Valsartan (Diovan -) 320 mg PO DAILY [facility] Last Admin: 12/31/18 11:04 Dose: 320 mg - Objective Vital Signs: Vital Signs Temperature 97.5 F L 12/31/18 06:11 Pulse Rate 65 12/31/18 06:11 Respiratory Rate 18 12/31/18 06:11 Blood Pressure 151/75 12/31/18 06:11 O2 Sat by Pulse Oximetry (%) 97 12/30/18 09:00 Constitutional: Yes: Calm Eyes: Yes: Conjunctiva Clear HENT: Yes: Atraumatic Neck: Yes: Supple Cardiovascular: Yes: S1, S2 Respiratory: Yes: CTA Bilaterally Gastrointestinal: Yes: Normal Bowel Sounds, Soft Genitourinary: Yes: WNL Musculoskeletal: Yes: WNL Edema: Yes Edema: LLE: Trace, RLE: Trace Neurological: Yes: Oriented Psychiatric: Yes: Oriented Labs: CBC, BMP 12/30/18 07:10 12/30/18 07:10 INR, PTT INR 0.98 (0.83-1.09) 12/21/18 16:20 Problem List - Problems (1) KACI (acute kidney injury) Code(s): N17.9 - ACUTE KIDNEY FAILURE, UNSPECIFIED Assessment/Plan Current Medications Generic Name Dose Route Start Last Admin Trade Name Freq PRN Reason Stop Dose Admin Acetaminophen 650 mg 12/21/18 20:13 12/30/18 21:36 Tylenol - PO 650 mg Q6H PRN Administration PAIN LEVEL 1-5 Amlodipine Besylate 10 mg 12/29/18 10:50 12/31/18 11:05 Norvasc - PO 10 mg DAILY [facility] Administration Dextrose 25 gm 12/22/18 11:41 D50w (Vial) - IVPUSH PRN PRN HYPOGLYCEMIA Docusate Sodium 200 mg 12/21/18 22:00 12/30/18 21:32 Colace - PO 200 mg HS [facility] Administration Ferrous Sulfate 325 mg 12/22/18 10:00 12/31/18 11:05 Feosol - PO 325 mg DAILY [facility] Administration Furosemide 40 mg 12/25/18 14:00 12/31/18 06:25 Lasix - PO 40 mg BID@0600,1400 [facility] Administration Heparin Sodium (Porcine) 5,000 unit 12/21/18 22:00 12/31/18 11:05 Heparin - SQ 5,000 unit BID [facility] Administration Insulin Detemir 12 units 12/21/18 22:00 12/30/18 21:32 Levemir Vial SQ Not Given HS [facility] Insulin Detemir 15 units 12/22/18 07:00 12/31/18 06:26 Levemir Vial SQ Not Given AM [facility] Isosorbide Mononitrate 30 mg 12/22/18 10:00 12/31/18 11:05 Imdur - PO 30 mg DAILY [facility] Administration Metoprolol Tartrate 25 mg 12/21/18 22:00 12/31/18 11:05 Lopressor - PO 25 mg BID [facility] Administration Pantoprazole Sodium 40 mg 12/22/18 10:00 12/31/18 11:05 Protonix - PO 40 mg DAILY [facility] Administration Rosuvastatin Calcium 10 mg 12/21/18 22:00 12/30/18 21:32 Crestor - PO 10 mg HS [facility] Administration Senna 2 tab 12/25/18 11:05 Senna - PO HS PRN CONSTIPATION Sodium Chloride 2 spray 12/25/18 11:04 12/30/18 10:21 [place] Nasal [place] - NS 2 sprays BID PRN Administration NASAL CONGESTION Valsartan 320 mg 12/27/18 10:00 12/31/18 11:04 Diovan - PO 320 mg DAILY [facility] Administration Impression 1. KACI 2. anemia 3. proteinuria 4. pleural effusions 5. htn 6. dm 7. CHF 8. CKD Plan - change lasix to 40 mg daily - cont diovan - pt has loose stool - kidney biopsy with diabetic disease and atn - monitor bp, stable today - avoid nsaids
[2018-12-31 14:17] VITALS: BP 167/77; PULSE 62; TEMP 97.8
[2019-01-01] MEDS ORDERED: FUROSEMIDE 40 MG TABLET (FP) PO SCH (10:00)
== END 2018-12-31 15:50 | DRG 682 ==
LOC: JER 15:38 → JERBED 18:22 → J6S 22:42
PROVIDERS: ADMIT Internal Medicine; ATTEND Family Medicine
PROC: 0TB13ZX Excision of Left Kidney, Percutaneous Approach, Diagnostic (ICD-10-PCS; principal; 2018-12-23)
DX: N17.9 Acute kidney failure, unspecified (principal); I50.23 Acute on chronic systolic (congestive) heart failure; I13.0 Hypertensive heart and chronic kidney disease with heart failure and stage 1 through stage 4 chronic kidney disease, or unspecified chronic kidney disease; N18.9 Chronic kidney disease, unspecified; D64.9 Anemia, unspecified; E11.9 Type 2 diabetes mellitus without complications; R60.0 Localized edema; R42 Dizziness and giddiness; E78.5 Hyperlipidemia, unspecified; K21.9 Gastro-esophageal reflux disease without esophagitis; I27.20 Pulmonary hypertension, unspecified; R80.9 Proteinuria, unspecified; R82.71 Bacteriuria; K59.00 Constipation, unspecified
CPT/HCPCS: 36415; 50200; 71045-TC-FY; 74018-TC-FY; 76942-TC; 80048; 80053; 81003; 82570; 82803; 82962; 83036; 83605; 83880; 84156; 84443; 84481; 84484; 85025; 85027; 85610; 85730; 87040; 87086; 87186; 93005; 93010; 97116-GP; 97162-GP; 99284-25; J0131; J1644

== ENCOUNTER 2019-01-09 06:05 | Inpatient (IN) | payer BC ==
[2019-01-09 07:05] LABS: BASO % 1.4 % (0-2.0); EOS % 1.6 % (0-4.5); HEMATOCRIT 30.5 % (32.4-45.2); LYMPH % 10.4 % (8-40); MCH 26.7 pg (25.7-33.7); MCHC 32.8 g/dl (32.0-36.0); MEAN CELL VOLUME 81.5 fl (80-96); MONO % 3.5 % (3.8-10.2); NEUT % 83.1 % (42.8-82.8); PLATELET COUNT 191 K/MM3 (134-434); RBC 3.74 M/mm3 (3.60-5.2); RDW 18.8 % (11.6-15.6); WHITE BLOOD COUNT 5.9 K/mm3 (4.0-10.0)
[2019-01-09 07:11] LABS: VENOUS PC02 45.2 mmHg (38-52); VENOUS PH 7.25 (7.31-7.41); VENOUS PO2 59.2 mmHg (28-48)
--- NOTE | 2019-01-09 07:38 | PDOC ---
Attending Attestation - Resident Resident Name: Jovanni Mock - ED Attending Attestation I have performed the following: I have examined & evaluated the patient, The case was reviewed & discussed with the resident, I agree w/resident's findings & plan, Exceptions are as noted - HPI HPI: 01/09/19 08:01 Ms Derek Hunt is a 63 yo F w/PMH of CHF, HTN, HLD, DM, IBS, GERD, Anemia s/ p recent admission for CHF, sent to [facility] for rehabilitation s/p admission to the hospital. Pt was noted to be lethargic at the facility this morning. A fingerstick was performed and was noted to be 40. Pt was either given Glucagon or D50. Pt noted to be hypothermic and bradycardiac. she has no complaints at this time Nursing staff unable to provide any additional information at this time 01/09/19 08:08 - Physicial Exam PE: 01/09/19 08:12 GENERAL: The patient is in no acute distress. ENT: Ears normal, nares patent, oropharynx clear without exudates. dry mucous membranes. NECK: Normal range of motion, supple LUNGS: No wheezes, (+) crackles at the bases HEART: Regular rhythm, bradycardaic rate ABDOMEN: Soft, nontender, normoactive bowel sounds. EXTREMITIES: Normal range of motion, no edema. NEUROLOGICAL: somnolent but arousable, Cranial nerves II through XII grossly intact. Normal speech. No focal neurological deficits. SKIN: Warm, Dry, normal turgor, no rashes or lesions noted. - Medical Decision Making 01/09/19 08:14 63 yo F presenting due to hypoglycemia and hypothermia Will do: Labs EKG CXR gentle hydration Warming Will admit 01/09/19 08:20 Laboratory Tests 12/30/18 12/30/18 01/09/19 07:10 07:10 06:50 WBC 5.9 Hgb 9.7 L 10.0 L Hct 29.9 L 30.5 L Plt Count 189 191 VBG pH POC VBG pCO2 POC VBG pO2 Sodium Potassium Chloride Carbon Dioxide BUN 64.2 H Creatinine 2.8 H Random Glucose Calcium Magnesium Troponin I 01/09/19 01/09/19 06:50 06:50 WBC Hgb Hct Plt Count VBG pH 7.25 L POC VBG pCO2 45.2 POC VBG pO2 59.2 H Sodium 129 L Potassium 4.3 Chloride 99 Carbon Dioxide 18 L BUN 97.3 H Creatinine 3.3 H Random Glucose 432 H* Calcium 8.0 L Magnesium 2.6 H Troponin I 0.03 Will need to admit for Acute on chronic renal insufficiency Hyponatremia acedemia (? related to uremia)
--- NOTE | 2019-01-09 07:40 | PDOC ---
History of Present Illness - General Chief Complaint: Blood Sugar Problem Stated Complaint: BLOOD SUGAR PROBLEM,AMS Time Seen by Provider: 01/09/19 07:10 - History of Present Illness Initial Comments: 01/09/19 08:19 Pt is a 63 y/o F with a significant past medical history of HTN, CHF, HLD, DM , IBS, GERD, and Anemia presents to our Emergency Department from [facility] for lethargy and Hypoglycemia. Per phone conversation with Maria Esther RN, pt's BGM was 40 ; pt was subsequently administered glucagon and sent to our E.D. Pt was recently admitted to our Hospital for CHF exacerbation on 12/21/2018. Pt's HR has been in upper 30s on this admission as well a temperature of 89.8. Pt denies SOB, Chest pain, nausea, vomiting, or loss of consciousness. Does endorse some nausea, palpitations, and headache. Headache described as intermittent, 7/10 in pain severity, and throbbing in nature. Past History - Past Medical History Allergies/Adverse Reactions: Allergies Allergy/AdvReac Type Severity Reaction Status Date / Time No Known Allergies Allergy Verified 12/21/18 15:44 Home Medications: Ambulatory Orders Acetaminophen 650 mg PO QID PRN 01/09/19 Amlodipine Besylate 10 mg PO DAILY 01/09/19 Docusate Sodium [Colace] 300 mg PO DAILY 01/09/19 Ferrous Sulfate 325 mg PO DAILY 01/09/19 Isosorbide Mononitrate [Isosorbide Mononitrate ER] 30 mg PO DAILY 01/09/19 Pantoprazole Sodium 40 mg PO BID 01/09/19 Rosuvastatin Calcium [Crestor] 10 mg PO HS 01/09/19 Valsartan 320 mg PO DAILY 01/09/19 Carvedilol [Coreg -] 3.125 mg PO BID tablet 01/14/19 Carvedilol [Coreg -] 3.125 mg PO BID #60 tablet 01/15/19 Furosemide [Lasix -] 40 mg PO DAILY tablet 01/15/19 Furosemide [Lasix -] 40 mg PO DAILY #30 tablet 01/15/19 Valsartan [Diovan] 320 mg PO DAILY #60 tablet 01/15/19 hydrALAZINE HCL [Apresoline -] 50 mg PO BID #90 tablet 01/15/19 Anemia: No Asthma: No Cancer: No Cardiac Disorders: Yes (Chest pain) CVA: No COPD: No CHF: Yes DVT: No Dementia: No Diabetes: Yes GI Disorders: Yes (IBS) Disorders: Yes (KACI) HTN: Yes Hypercholesterolemia: No Liver Disease: No Seizures: No Thyroid Disease: No - Surgical History Abdominal Surgery: No Appendectomy: No Cardiac Surgery: No Cholecystectomy: No Lung Surgery: No Neurologic Surgery: No Orthopedic Surgery: Yes (Right foot surgery) - Immunization History Immunization Up to Date: Yes - Psycho Social/Smoking Cessation Hx Smoking History: Never smoked Have you smoked in the past 12 months: No Hx Alcohol Use: No Drug/Substance Use Hx: No Substance Use Type: None Hx Substance Use Treatment: No Review of Systems - Review of Systems Able to Perform ROS?: Yes Is the patient limited Setswana proficient: No Constitutional: Yes: Weakness. No: Chills, Fever HEENTM: Yes: Blurred Vision Respiratory: No: Shortness of Breath Cardiac (ROS): Yes: Palpitations. No: Chest Pain ABD/GI: No: Abdominal Distended : No: Burning, Dysuria, Hematuria Integumentary: Yes: Pallor Neurological: Yes: Headache, Weakness. No: Seizure, Tingling, Tremors *Physical Exam - Vital Signs Last Vital Signs Temp Pulse Resp BP Pulse Ox 89.8 F L 45 L 20 124/62 98 01/09/19 06:20 01/09/19 06:20 01/09/19 06:20 01/09/19 06:20 01/09/19 06:20 - Physical Exam HEENT: positive: EOMI. negative: Scleral Icterus (R), Scleral Icterus (L) Neck: positive: Supple Respiratory/Chest: positive: Crackles Cardiovascular: positive: S1, S2, Bradycardia Gastrointestinal/Abdominal: positive: Flat, Soft. negative: Distended, Guarding , Rebound, Tenderness, Mass Extremity: positive: Pedal Edema Integumentary: positive: Pale Neurologic: positive: Respond to painful stimul, Responsive, Confused. negative : Facial Droop Heart Score/ECG Review - ECG Impressions Comment:: 01/09/19 07:41 Sinus isabel at 43 bpm. 1st degree AV block, OK interval 214. QTc [address]/T elevations. ED Treatment Course - LABORATORY CBC & Chemistry Diagram: 01/14/19 06:40 01/14/19 06:40 - ADDITIONAL ORDERS Additional order review: Laboratory Results 01/09/19 01/09/19 01/09/19 06:50 06:50 06:48 VBG pH 7.25 L POC VBG pCO2 45.2 POC VBG pO2 59.2 H VBG HCO3 19.1 L VBG O2 Sat (Autumn) 84.8 H VBG Base Excess -7.3 L POC Glucometer 139 Lactic Acid 0.7 01/09/19 01/09/19 06:50 06:48 RBC 3.74 MCV 81.5 MCHC 32.8 RDW 18.8 H MPV 8.0 D Neutrophils % 83.1 H Lymphocytes % 10.4 D Monocytes % 3.5 L Eosinophils % 1.6 Basophils % 1.4 POC Glucometer 139 Medical Decision Making - Medical Decision Making 01/09/19 08:13 CBC w/ diff, CMP, mag, Phos, TSH, T4, Lactic Acid, CXR, UC UA DDX includes but not limited to UTI, Toxic Metabolic Encephalopathy, Intracranial bleed, CHF exacerbation, Pneumonia 01/09/19 08:17 BGM 432. WBC 5.9. 01/09/19 09:03 Pt has been on bear Hugger since arrival. Temp on arrival 89.8. 01/09/19 09:16 Previous Urine Culture demonstrates pansensativity. E. Faecalis and E. Coli+. Will empirically administer Ceftriaxone 1 gm. 01/09/19 10:17 Temp currently 93.1. More alert, HR now low 40s. 01/09/19 10:17 Primary Team Contacted. Anticipate admission. Awaiting call back. 01/09/19 11:02 Sign out given to Dr Loredo. Pt accepted for admission. Discharge - Discharge Information Problems reviewed: Yes Clinical Impression/Diagnosis: KACI (acute kidney injury), Hypoglycemia Disposition: HOME - Follow up/Referral - Patient Discharge Instructions - Post Discharge Activity
[2019-01-09 07:43] LABS: ALBUMIN 2.8 g/dl (3.4-5.0); BILIRUBIN,TOTAL 0.3 mg/dL (0.2-1); BLOOD UREA NITROGEN 97.3 mg/dL (7-18); CREATININE 3.3 mg/dL (0.55-1.3); MAGNESIUM 2.6 mg/dL (1.8-2.4); PHOSPHOROUS 6.4 mg/dL (2.5-4.9); POTASSIUM 4.3 mmol/L (3.5-5.1); TOT PROT 6.4 g/dl (6.4-8.2)
[2019-01-09] MEDS ORDERED: SODIUM CHLORIDE 0.9% 500 ML INFUS.BAG IV ONE (07:53)
[2019-01-09] MEDS ORDERED: SODIUM CHLORIDE 1,000 ML IV ONE (08:06)
[2019-01-09 08:09] LABS: N-TERMINAL BNP 7869.5 pg/ml (5-125)
[2019-01-09] MEDS ORDERED: CEFTRIAXONE 1,000 MG in DEXTROSE 5%-WATER - 50 ML IVPB ONE (09:16)
[2019-01-09 09:17] LABS: PROTHROMBIN TIME (PATIENT) 11.8 SEC (9.7-13.0)
[2019-01-09 09:50] LABS: HYALINE CASTS 18 /lpf (0-8); URINE APPEARANCE CLOUDY; URINE BACTERIA 0.7 /hpf (NEGATIVE); URINE BILIRUBIN NEGATIVE (NEGATIVE); URINE COLOR YELLOW; URINE GLUCOSE (UA) TRACE (NEGATIVE); URINE KETONE NEGATIVE (NEGATIVE); URINE LEUK ESTERASE NEGATIVE (NEGATIVE); URINE NITRITE NEGATIVE (NEGATIVE); URINE PROTEIN 3+ (NEGATIVE); URINE RBC 1 /hpf (0-4); URINE UROBILINOGEN 0.2 mg/dL (0.2-1.0); URINE WBC 1 /hpf (0-5)
[2019-01-09] MEDS ORDERED: CEFTRIAXONE 1 GM/50 ML BAG ONE (10:34)
[2019-01-09 12:04] LABS: URINE CRYSTALS PRESENT /hpf
--- NOTE | 2019-01-09 13:53 | EKG ---
Test Reason : Blood Pressure : / mmHG Vent. Rate : 043 BPM Atrial Rate : 043 BPM P-R Int : 214 ms QRS Dur : 098 ms QT Int : 560 ms P-R-T Axes : 025 028 025 degrees QTc Int : 473 ms MARKED SINUS BRADYCARDIA WITH 1ST DEGREE A-V BLOCK ABNORMAL ECG WHEN COMPARED WITH ECG OF 24-DEC-2018 11:54, NONSPECIFIC T WAVE ABNORMALITY, IMPROVED IN INFERIOR LEADS T WAVE INVERSION NO LONGER EVIDENT IN LATERAL LEADS Confirmed by JUNE RYAN MD ([id number]) on 01/09/2019 1:53:28 PM Referred By: Confirmed By:JUNE RYAN MD
--- NOTE | 2019-01-09 15:39 | HP ---
Admitting History and Physical - Primary Care Physician PCP: Denise Boyer - Admission Chief Complaint: came in for low bgm History of Present Illness: Ms Derek Hunt is a 63 yo F w/PMH of CHF, HTN, HLD, DM, IBS, GERD, Anemia s/ p recent admission for CHF, sent to [facility] for rehabilitation s/p admission to the hospital. Pt was noted to be lethargic at the facility this morning. A fingerstick was performed and was noted to be 40. Pt was either given Glucagon or D50. Pt noted to be hypothermic and bradycardiac. in the ER the patient HR was in low 30 and Temp per family member on monitor showed 89.9 paitent was confused per family member History Source: Family Member, Medical Record - Past Medical History Cardiovascular: Yes: CHF, HTN, Hyperlipdemia Gastrointestinal: Yes: Constipation, GERD Heme/Onc: Yes: Anemia Endocrine: Yes: Diabetes Mellitus (DM II) - Smoking History Smoking history: Never smoked Have you smoked in the past 12 months: No - Alcohol/Substance Use Hx Alcohol Use: No History of Substance Use: reports: None - Social History ADL: Independent Occupation: Unemployed History of Recent Travel: No Home Medications - Allergies Allergies/Adverse Reactions: Allergies Allergy/AdvReac Type Severity Reaction Status Date / Time No Known Allergies Allergy Verified 12/21/18 15:44 - Home Medications Home Medications: Ambulatory Orders Acetaminophen 650 mg PO QID PRN 01/09/19 Amlodipine Besylate 10 mg PO DAILY 01/09/19 Ammonium Lactate Cream [Lac-Hydrin 12% *Cream*] 1 applic TP DAILY 01/09/19 Docusate Sodium [Colace] 300 mg PO DAILY 01/09/19 Ferrous Sulfate 325 mg PO DAILY 01/09/19 Furosemide [Lasix -] 40 mg PO BID 01/09/19 Hydrocortisone 1% Ointment [Hytone 1% Ointment -] 1 applic TP DAILY 01/09/19 Insulin Detemir [Levemir Flextouch] 12 unit SQ HS 01/09/19 Insulin Detemir [Levemir Flextouch] 15 unit SQ AM 01/09/19 Isosorbide Mononitrate [Isosorbide Mononitrate ER] 30 mg PO DAILY 01/09/19 Metoprolol Tartrate [Lopressor -] 25 mg PO BID 01/09/19 Multivitamin [One-Daily Multi-Vitamin] 1 each PO DAILY 01/09/19 Pantoprazole Sodium 40 mg PO BID 01/09/19 Rosuvastatin Calcium [Crestor] 10 mg PO HS 01/09/19 Sennosides [Senna] 2 tab PO HS 01/09/19 Sodium Chloride Nasal Lucan [Arthur Lucan Nasal Lucan] 2 spray NS BID PRN Valsartan 320 mg PO DAILY 01/09/19 Physical Examination Vital Signs: Vital Signs Temperature 98.7 F 01/09/19 14:20 Pulse Rate 67 01/09/19 14:20 Respiratory Rate 20 01/09/19 14:20 Blood Pressure 145/57 L 01/09/19 14:20 O2 Sat by Pulse Oximetry (%) 97 01/09/19 14:20 Labs: CBC, BMP 01/09/19 06:50 01/09/19 06:50 Problem List - Problems (1) KACI (acute kidney injury) Assessment/Plan: ivf acue on chronic kidney disease will hold diovan for nowand hold lasix Code(s): N17.9 - ACUTE KIDNEY FAILURE, UNSPECIFIED (2) Hypoglycemia Assessment/Plan: bgm hold off insulin endocrine consult Code(s): E16.2 - HYPOGLYCEMIA, UNSPECIFIED (3) HTN (hypertension) Assessment/Plan: with bradycardia hold av mindi blocking agents norvasc and can add hydalazine cardiology telelemtry echo Code(s): I10 - ESSENTIAL (PRIMARY) HYPERTENSION (4) Hypothermia Assessment/Plan: possible infectious cultures sent iv abx ID myra alarcon Code(s): T68.XXXA - HYPOTHERMIA, INITIAL ENCOUNTER
[2019-01-09] MEDS: INSULIN SLIDING SCALE (NOVOLOG) 1 VIAL SQ SCH ×2 (16:48→22:58)
[2019-01-09] MEDS ORDERED: HEPARIN NA (PORCINE) 5,000 UNITS/ML 1ML VIAL ONE (22:44)
[2019-01-09] MEDS ORDERED: hydrALAZINE HCL 25 MG TABLET (FP) ONE (22:44)
[2019-01-09] MEDS: hydrALAZINE HCL 25 MG TABLET (FP) PO SCH (22:49)
[2019-01-09] MEDS: HEPARIN NA (PORCINE) 5,000 UNITS/ML 1ML VIAL SQ SCH (22:49)
--- NOTE | 2019-01-09 23:26 | CONSULT ---
Consult Consult Specialty:: Nephrology Reason for Consultation:: CKD - History of Present Illness Chief Complaint: hypoglycemia History of Present Illness: Pt is a 63 year old female with pmhx of ckd, chf, htn, hld, dm anemia and gerd who was sent in for hypolycemia. She was also found to be bradycardic. She is now awake. She does not remember what happened. She denies shortness of breath. She denies lower ext edema. She was recently discharged from the hospital. - History Source History Provided By: Patient, Medical Record - Past Medical History Cardio/Vascular: Yes: CHF, HTN, Hyperlipdemia Gastrointestinal: Yes: Constipation, GERD Endocrine: Yes: Diabetes Mellitus (DM II) - Alcohol/Substance Use Hx Alcohol Use: No History of Substance Use: reports: None - Smoking History Smoking history: Never smoked Have you smoked in the past 12 months: No - Social History Usual Living Arrangement: With Spouse ADL: Independent Occupation: Unemployed History of Recent Travel: No Home Medications - Allergies Allergies/Adverse Reactions: Allergies Allergy/AdvReac Type Severity Reaction Status Date / Time No Known Allergies Allergy Verified 12/21/18 15:44 - Home Medications Home Medications: Ambulatory Orders Acetaminophen 650 mg PO QID PRN 01/09/19 Amlodipine Besylate 10 mg PO DAILY 01/09/19 Ammonium Lactate Cream [Lac-Hydrin 12% *Cream*] 1 applic TP DAILY 01/09/19 Docusate Sodium [Colace] 300 mg PO DAILY 01/09/19 Ferrous Sulfate 325 mg PO DAILY 01/09/19 Furosemide [Lasix -] 40 mg PO BID 01/09/19 Hydrocortisone 1% Ointment [Hytone 1% Ointment -] 1 applic TP DAILY 01/09/19 Insulin Detemir [Levemir Flextouch] 12 unit SQ HS 01/09/19 Insulin Detemir [Levemir Flextouch] 15 unit SQ AM 01/09/19 Isosorbide Mononitrate [Isosorbide Mononitrate ER] 30 mg PO DAILY 01/09/19 Metoprolol Tartrate [Lopressor -] 25 mg PO BID 01/09/19 Multivitamin [One-Daily Multi-Vitamin] 1 each PO DAILY 01/09/19 Pantoprazole Sodium 40 mg PO BID 01/09/19 Rosuvastatin Calcium [Crestor] 10 mg PO HS 01/09/19 Sennosides [Senna] 2 tab PO HS 01/09/19 Sodium Chloride Nasal Ely [[place] Ely Nasal Ely] 2 spray NS BID PRN Valsartan 320 mg PO DAILY 01/09/19 Family Medical History Family History: Denies Review of Systems - Review of Systems Constitutional: reports: Malaise Eyes: reports: No Symptoms HENT: reports: No Symptoms Neck: reports: No Symptoms Cardiovascular: reports: No Symptoms Respiratory: reports: No Symptoms Gastrointestinal: reports: No Symptoms Genitourinary: reports: No Symptoms Musculoskeletal: reports: No Symptoms Integumentary: reports: No Symptoms Neurological: reports: No Symptoms Endocrine: reports: No Symptoms Hematology/Lymphatic: reports: No Symptoms Psychiatric: reports: No Symptoms Physical Exam Vital Signs: Vital Signs Temperature 97.2 F L 01/09/19 23:12 Pulse Rate 72 01/09/19 22:43 Respiratory Rate 18 01/09/19 22:43 Blood Pressure 163/75 01/09/19 22:43 O2 Sat by Pulse Oximetry (%) 98 01/09/19 22:43 Constitutional: Yes: Calm Eyes: Yes: Conjunctiva Clear HENT: Yes: Atraumatic Neck: Yes: Supple Cardiovascular: Yes: S1, S2 Respiratory: Yes: CTA Bilaterally Gastrointestinal: Yes: Soft Renal/: Yes: WNL Edema: No Neurological: Yes: Oriented Psychiatric: Yes: Oriented Labs: CBC, BMP 01/09/19 06:50 01/09/19 06:50 Laboratory Tests 12/26/18 12/28/18 12/30/18 07:34 07:20 07:10 WBC Hgb Plt Count Sodium Potassium BUN Creatinine 2.8 H 2.9 H 2.8 H Random Glucose B-Natriuretic Peptide 01/09/19 01/09/19 06:50 06:50 WBC 5.9 Hgb 10.0 L Plt Count 191 Sodium 129 L Potassium 4.3 BUN 97.3 H Creatinine 3.3 H Random Glucose 432 H* B-Natriuretic Peptide 7869.5 H Imaging - Results Chest X-ray: Report Reviewed Problem List - Problems (1) CKD (chronic kidney disease) Code(s): N18.9 - CHRONIC KIDNEY DISEASE, UNSPECIFIED (2) Hypoglycemia Code(s): E16.2 - HYPOGLYCEMIA, UNSPECIFIED (3) KACI (acute kidney injury) Code(s): N17.9 - ACUTE KIDNEY FAILURE, UNSPECIFIED (4) CHF (congestive heart failure) Code(s): I50.9 - HEART FAILURE, UNSPECIFIED Qualifiers: Heart failure type: diastolic Assessment/Plan Current Medications Generic Name Dose Route Start Last Admin Trade Name Freq PRN Reason Stop Dose Admin Amlodipine Besylate 10 mg 01/10/19 06:00 Norvasc - PO DAILY@0600 SUSAN Heparin Sodium (Porcine) 5,000 unit 01/09/19 22:00 01/09/19 22:49 Heparin - SQ 5,000 unit BID SUSAN Administration Hydralazine HCl 25 mg 01/09/19 22:00 01/09/19 22:49 Apresoline - PO 25 mg BID SUSAN Administration Ceftriaxone Sodium 1 gm/ 50 mls @ 100 mls/hr 01/10/19 10:00 Dextrose IVPB DAILY [facility] Protocol Insulin Aspart 1 vial 01/09/19 16:30 01/09/19 22:58 Novolog Vial Sliding Scale - SQ Not Given ACHS [facility] Protocol Rosuvastatin Calcium 10 mg 01/09/19 22:00 Crestor - PO HS SUSAN Impression 1. KACI 2. anemia 3. proteinuria 4. pleural effusions 5. htn 6. dm 7. CHF 8. CKD Plan - pt was on laix 40 mg bid which was changed to 40 mg daily - evaluate for lasix in am - repeat labs in am - kidney biopsy with diabetic disease and some atn - avoid nsaids
[2019-01-10 00:25] VITALS: BMI 28.0
[2019-01-10] MEDS: ROSUVASTATIN CA 10 MG TABLET (FP) PO SCH ×2 (00:39→21:06)
[2019-01-10] MEDS: amLODIPine BESYLATE 10 MG TABLET (FP) PO SCH (06:03)
[2019-01-10] MEDS: INSULIN SLIDING SCALE (NOVOLOG) 1 VIAL SQ SCH ×4 (06:03→21:06)
[2019-01-10 07:44] LABS: HEMATOCRIT 31.7 % (32.4-45.2); HEMOGLOBIN 10.2 GM/dL (10.7-15.3); MCH 26.3 pg (25.7-33.7); MCHC 32.1 g/dl (32.0-36.0); MEAN CELL VOLUME 81.8 fl (80-96); MEAN PLT VOLUME 8.3 fl (7.5-11.1); PLATELET COUNT 200 K/MM3 (134-434); RBC 3.88 M/mm3 (3.60-5.2); RDW 18.8 % (11.6-15.6); WHITE BLOOD COUNT 8.4 K/mm3 (4.0-10.0)
[2019-01-10 07:53] LABS: IRON SERUM 35 ug/dL (50-175); TOTAL IRON BINDING CAPACITY 262 ug/dL (250-450)
[2019-01-10 08:04] LABS: ALBUMIN 2.6 g/dl (3.4-5.0); BILIRUBIN,TOTAL 0.3 mg/dL (0.2-1); BLOOD UREA NITROGEN 89.6 mg/dL (7-18); CALCIUM 8.6 mg/dL (8.5-10.1); CREATININE 3.1 mg/dL (0.55-1.3); MAGNESIUM 2.6 mg/dL (1.8-2.4); N-TERMINAL BNP 10744.9 pg/ml (5-125); PHOSPHOROUS 6.6 mg/dL (2.5-4.9); POTASSIUM 4.2 mmol/L (3.5-5.1); TOT PROT 6.2 g/dl (6.4-8.2)
[2019-01-10] MEDS ORDERED: cefTRIAXone SODIUM 1 GM VIAL ONE (09:32)
[2019-01-10] MEDS ORDERED: DEXTROSE 5%-WATER - 50 ML IVPB ONE (09:32)
[2019-01-10] MEDS: hydrALAZINE HCL 25 MG TABLET (FP) PO SCH ×2 (09:53→21:07)
[2019-01-10] MEDS: CEFTRIAXONE 1 GM in DEXTROSE 5%-WATER - 50 ML IVPB SCH (09:57)
--- NOTE | 2019-01-10 10:01 | PN ---
Progress Note, Physician Chief Complaint: AWAKE ALERTX2 EVENTS AND NOTES REVIEWED FELT CONFUSED AND HYPOGLYCEMIC OVERNIGHT - Current Medication List Current Medications: Active Medications Amlodipine Besylate (Norvasc -) 10 mg PO DAILY@0600 [facility] Last Admin: 01/10/19 06:03 Dose: 10 mg Heparin Sodium (Porcine) (Heparin -) 5,000 unit SQ BID [facility] Last Admin: 01/09/19 22:49 Dose: 5,000 unit Hydralazine HCl (Apresoline -) 25 mg PO BID [facility] Last Admin: 01/09/19 22:49 Dose: 25 mg Ceftriaxone Sodium 1 gm/ (Dextrose) 50 mls @ 100 mls/hr IVPB DAILY [facility]; Protocol Insulin Aspart (Novolog Vial Sliding Scale -) 1 vial SQ ACHS [facility]; Protocol Last Admin: 01/10/19 06:03 Dose: Not Given Rosuvastatin Calcium (Crestor -) 10 mg PO HS [facility] Last Admin: 01/10/19 00:39 Dose: Not Given - Objective Vital Signs: Vital Signs Temperature 94.9 F L 01/10/19 06:00 Pulse Rate 66 01/10/19 06:00 Respiratory Rate 16 01/10/19 06:00 Blood Pressure 156/77 01/10/19 06:00 O2 Sat by Pulse Oximetry (%) 100 01/10/19 00:02 Constitutional: Yes: Mild Distress Cardiovascular: Yes: Regular Rate and Rhythm Respiratory: Yes: WNL Gastrointestinal: Yes: Normal Bowel Sounds, Soft Genitourinary: Yes: Incontinence Musculoskeletal: Yes: Muscle Weakness Edema: No Integumentary: Yes: Venous Stasis Changes, Other Wound/Incision: Yes: Open to air Neurological: Yes: Pre-Existing Deficit Psychiatric: Yes: Other Labs: CBC, BMP 01/10/19 06:00 01/10/19 06:00 INR, PTT INR 1.00 (0.83-1.09) 01/09/19 08:08 Problem List - Problems (1) CKD (chronic kidney disease) Code(s): N18.9 - CHRONIC KIDNEY DISEASE, UNSPECIFIED (2) Hypoglycemia Code(s): E16.2 - HYPOGLYCEMIA, UNSPECIFIED (3) Hypothermia Code(s): T68.XXXA - HYPOTHERMIA, INITIAL ENCOUNTER (4) KACI (acute kidney injury) Code(s): N17.9 - ACUTE KIDNEY FAILURE, UNSPECIFIED (5) Abdominal pain Code(s): R10.9 - UNSPECIFIED ABDOMINAL PAIN Qualifiers: Abdominal location: right lower quadrant Qualified Code(s): R10.31 - Right lower quadrant pain (6) Acute on chronic congestive heart failure Code(s): I50.9 - HEART FAILURE, UNSPECIFIED Qualifiers: Heart failure type: systolic Qualified Code(s): I50.23 - Acute on chronic systolic (congestive) heart failure (7) Acute on chronic systolic heart failure Code(s): I50.23 - ACUTE ON CHRONIC SYSTOLIC (CONGESTIVE) HEART FAILURE (8) DVT prophylaxis Code(s): [id number] - (9) Diabetic nephropathy Qualifiers: Diabetes mellitus type: type 2 Qualified Code(s): E11.21 - Type 2 diabetes mellitus with diabetic nephropathy (10) Diabetic retinopathy associated with type 2 diabetes mellitus Code(s): E11.319 - TYPE 2 DIABETES W UNSP DIABETIC RTNOP W/O MACULAR EDEMA (11) Noncompliance of patient with dietary regimen Code(s): Z91.11 - PATIENT'S NONCOMPLIANCE WITH DIETARY REGIMEN (12) Type 2 diabetes mellitus with other circulatory complications Code(s): E11.59 - TYPE 2 DIABETES MELLITUS WITH OTH CIRCULATORY COMPLICATIONS (13) UTI (urinary tract infection) Code(s): N39.0 - URINARY TRACT INFECTION, SITE NOT SPECIFIED Assessment/Plan MONITOR BGM TOXIC METABOLIC ENCEPHALOPATHY RENAL/CARDIO EVAL OOB TO CHAIR PT EVAL DVT PROPHYLAXIS CHECK CULTURES, ID FOLLOW UP
[2019-01-10] MEDS: HEPARIN NA (PORCINE) 5,000 UNITS/ML 1ML VIAL SQ SCH ×2 (10:08→21:07)
--- NOTE | 2019-01-10 12:00 | PN ---
Progress Note (short form) - Note Progress Note: Renal follow up for KACI Coverage for Dr. Story Seen and examined at the bedside reports sob when walking to bathroom no chest pain, fever, chills no leg swelling Vital Signs Temperature 97.2 F L 01/10/19 10:32 Pulse Rate 64 01/10/19 10:32 Respiratory Rate 16 01/10/19 06:00 Blood Pressure 157/71 01/10/19 10:32 O2 Sat by Pulse Oximetry (%) 100 01/10/19 00:02 Intake & Output 01/07/19 01/08/19 01/09/19 01/10/19 23:59 23:59 23:59 23:59 Weight 67.132 kg 67.188 kg NAD awake and alert RRR Dec BS, mild rales at lung bases soft NT/ND no LE edema CBC, BMP 01/10/19 06:00 01/10/19 06:00 Current Medications Amlodipine Besylate (Norvasc -) 10 mg PO DAILY@0600 [facility] Last Admin: 01/10/19 06:03 Dose: 10 mg Heparin Sodium (Porcine) (Heparin -) 5,000 unit SQ BID [facility] Last Admin: 01/10/19 10:08 Dose: 5,000 unit Hydralazine HCl (Apresoline -) 25 mg PO BID [facility] Last Admin: 01/10/19 09:53 Dose: 25 mg Ceftriaxone Sodium 1 gm/ (Dextrose) 50 mls @ 100 mls/hr IVPB DAILY [facility]; Protocol Last Admin: 01/10/19 09:57 Dose: 100 mls/hr Insulin Aspart (Novolog Vial Sliding Scale -) 1 vial SQ ACHS [facility]; Protocol Last Admin: 01/10/19 11:31 Dose: Not Given Rosuvastatin Calcium (Crestor -) 10 mg PO HS [facility] Last Admin: 01/10/19 00:39 Dose: Not Given Impression 1. KACI 2. anemia 3. proteinuria 4. pleural effusions 5. htn 6. dm 7. CHF 8. CKD Plan Renal function slightly improved/stable Will give lasix 40mg PO x 1 this am give LUKE and rales on lung examination Trend renal function and electrolyses Jorge Holland DO
[2019-01-10] MEDS ORDERED: FUROSEMIDE 40 MG TABLET (FP) PO ONE (12:15)
[2019-01-10] MEDS ORDERED: hydrALAZINE HCL 25 MG TABLET (FP) PO ONE (16:23)
--- NOTE | 2019-01-10 16:51 | CON.CARD ---
Consult Consult Specialty:: Cardiology Referred by:: Dr. Francois Reason for Consultation:: Sinus bradycardia - History of Present Illness Chief Complaint: Altered mental status with evidence of hypoglycemia, hypothermia and bradycardia. History of Present Illness: 63 year-old woman with a PMHx of HTN, DM, hyperlipidemia, systolic CHF with moderate LV and RV dysfunction, IBS, GERD, anemia and recent admission for CHF, readmitted 01/09/19 from [facility] for lethargy with evidence of hypoglycemia ( fingerstick 40). She was also noted to be hypothermic and bradycardiac HR was in 30s in ED and Temp per family member on monitor showed 89.9. The patient has been stable since admission. Tele shows sinus rhythm in low 60s without arrhythmia. She has no chest pain, SOB at rest, palpitation, dizziness, edema, orthopnea or PND. Seen by renal for KACI. Treated with IV ABx. CXR 01/09/19: Cardiomegaly. Bibasilar effusion/atlectasis. ECG 01/09/19 Sinus bradycardia at 43 BPM. Normal axis. No significant ST-T abnormality. Echo 12/15/18: Normal LV size with moderate global hypokinesis. LVEF 40-45%. Normal RV size with hypokinesis. Normal LA and RA size. Mild MR. Moderate TR. - History Source History Provided By: Patient, Medical Record Limitations to Obtaining History: No Limitations - Past Medical History Cardio/Vascular: Yes: CHF, HTN, Hyperlipdemia Gastrointestinal: Yes: Constipation, GERD ...: No Endocrine: Yes: Diabetes Mellitus (DM II) - Alcohol/Substance Use Hx Alcohol Use: No History of Substance Use: reports: None - Smoking History Smoking history: Never smoked Have you smoked in the past 12 months: No - Social History Usual Living Arrangement: With Spouse ADL: Independent Occupation: Unemployed History of Recent Travel: No Home Medications - Allergies Allergies/Adverse Reactions: Allergies Allergy/AdvReac Type Severity Reaction Status Date / Time No Known Allergies Allergy Verified 12/21/18 15:44 - Home Medications Home Medications: Ambulatory Orders Acetaminophen 650 mg PO QID PRN 01/09/19 Amlodipine Besylate 10 mg PO DAILY 01/09/19 Ammonium Lactate Cream [Lac-Hydrin 12% *Cream*] 1 applic TP DAILY 01/09/19 Docusate Sodium [Colace] 300 mg PO DAILY 01/09/19 Ferrous Sulfate 325 mg PO DAILY 01/09/19 Furosemide [Lasix -] 40 mg PO BID 01/09/19 Hydrocortisone 1% Ointment [Hytone 1% Ointment -] 1 applic TP DAILY 01/09/19 Insulin Detemir [Levemir Flextouch] 12 unit SQ HS 01/09/19 Insulin Detemir [Levemir Flextouch] 15 unit SQ AM 01/09/19 Isosorbide Mononitrate [Isosorbide Mononitrate ER] 30 mg PO DAILY 01/09/19 Metoprolol Tartrate [Lopressor -] 25 mg PO BID 01/09/19 Multivitamin [One-Daily Multi-Vitamin] 1 each PO DAILY 01/09/19 Pantoprazole Sodium 40 mg PO BID 01/09/19 Rosuvastatin Calcium [Crestor] 10 mg PO HS 01/09/19 Sennosides [Senna] 2 tab PO HS 01/09/19 Sodium Chloride Nasal [place] [[place] Nasal [place]] 2 spray NS BID PRN Valsartan 320 mg PO DAILY 01/09/19 Review of Systems - Review of Systems Constitutional: reports: Lethargy, Weakness Eyes: reports: No Symptoms HENT: reports: No Symptoms Neck: reports: No Symptoms Cardiovascular: reports: No Symptoms Respiratory: reports: No Symptoms Gastrointestinal: reports: No Symptoms Genitourinary: reports: No Symptoms Breasts: reports: No Symptoms Reported Musculoskeletal: reports: No Symptoms Integumentary: reports: No Symptoms Neurological: reports: No Symptoms Vital Signs: Vital Signs Temperature 97.4 F L 01/10/19 14:25 Pulse Rate 63 01/10/19 14:25 Respiratory Rate 18 01/10/19 14:25 Blood Pressure 158/78 01/10/19 14:15 O2 Sat by Pulse Oximetry (%) 98 01/10/19 09:00 General: Well developed. Well nourished. No acute distress. Head: Normocephalic. Atraumatic, Eyes: PERRLA, EOMI. Sclerae anicteric. Conjunctivae clear. Neck: Supple. No JVD. No bruits. Heart: Normal S1, S2: Regular rhythm and rate. No murmur. No gallop or rub. Lungs: Symmetrical air entry. Clear to auscultation. No crackle. No wheezing or rhonchi. Abdomen: Soft. Bowel sound positive. Non tender. No masses. Extremities: No edema. No clubbing or cyanosis. PD 2+, equal bilaterally. Neuro: Intact, no focal findings. AAO X3 - Other Data Labs, Other Data: CBC, BMP 01/10/19 06:00 01/10/19 06:00 INR, PTT INR 1.00 (0.83-1.09) 01/09/19 08:08 Troponin, BNP 01/10/19 06:00 Troponin I 0.06 H B-Natriuretic Peptide 51636.9 H Troponin, BNP 01/10/19 06:00 Troponin I 0.06 H B-Natriuretic Peptide 47295.9 H Assessment/Plan 63 year-old woman with a PMHx of HTN, DM, hyperlipidemia, systolic CHF with moderate LV and RV dysfunction, IBS, GERD, anemia and recent admission for CHF, readmitted 01/09/19 from [facility] for lethargy with evidence of hypoglycemia ( fingerstick 40). She was also noted to be hypothermic and bradycardiac HR was in 30s in ED and Temp per family member on monitor showed 89.9. The patient has been stable since admission. Tele shows sinus rhythm in low 60s without arrhythmia. She has no chest pain, SOB at rest, palpitation, dizziness, edema, orthopnea or PND. Seen by renal for KACI. Treated with IV ABx. CXR 01/09/19: Cardiomegaly. Bibasilar effusion/atlectasis. ECG 01/09/19 Sinus bradycardia at 43 BPM. Normal axis. No significant ST-T abnormality. Echo 12/15/18: Normal LV size with moderate global hypokinesis. LVEF 40-45%. Normal RV size with hypokinesis. Normal LA and RA size. Mild MR. Moderate TR. 1) Marked sinus bradycardia while on metoprolol tartrate 25 mg BID. Hypothermia might also contribute to the sinus bradycardia. Bradycardia resolved after holding metoprolol. -Hold metoprolol -Continue tele for additional 12-24 hours. 2) Chronic systolic CHF: stable and no dyspnea or fluid overload. -Hold diuretics in the setting of KACI. -Increase hydralazine to 50 mg BID and add Imdur 30 mg daily for systolic CHF and HTN. Outpatient cardiac follow up for systolic CHF. Please do not hesitate to call us for re-consult at any time if any further questions or additional issue arises regarding this patient.
[2019-01-11] MEDS: amLODIPine BESYLATE 10 MG TABLET (FP) PO SCH (05:41)
[2019-01-11] MEDS: INSULIN SLIDING SCALE (NOVOLOG) 1 VIAL SQ SCH ×4 (06:03→21:14)
[2019-01-11] MEDS: hydrALAZINE HCL 25 MG TABLET (FP) PO SCH ×4 (08:37→21:13)
[2019-01-11] MEDS ORDERED: DEXTROSE 5%-WATER - 50 ML IVPB ONE (08:56)
[2019-01-11] MEDS ORDERED: cefTRIAXone SODIUM 1 GM VIAL ONE (08:56)
[2019-01-11] MEDS: CEFTRIAXONE 1 GM in DEXTROSE 5%-WATER - 50 ML IVPB SCH (09:40)
[2019-01-11] MEDS: HEPARIN NA (PORCINE) 5,000 UNITS/ML 1ML VIAL SQ SCH ×2 (09:40→21:13)
[2019-01-11 10:06] LABS: BLOOD UREA NITROGEN 76.9 mg/dL (7-18); CALCIUM 8.3 mg/dL (8.5-10.1); MAGNESIUM 2.4 mg/dL (1.8-2.4); POTASSIUM 4.2 mmol/L (3.5-5.1)
[2019-01-11] MEDS: PANTOPRAZOLE 40 MG TABLET (FP) PO SCH ×2 (10:28→21:13)
[2019-01-11] MEDS: FERROUS SO4 325 MG TABLET (FP) PO SCH (10:28)
[2019-01-11] MEDS: DOCUSATE SODIUM 100 MG CAPSULE (FP) PO SCH (10:28)
[2019-01-11] MEDS: ISOSORBIDE MONONITRATE 30 MG TAB.SR.24H (FP) PO SCH (10:28)
--- NOTE | 2019-01-11 10:55 | PN ---
Progress Note, Physician Chief Complaint: Hypoglycemia CKD HTN History of Present Illness: Previous notes and events reviewed awake and alert NAD BS trend reviewed UC and BC neg - Current Medication List Current Medications: Active Medications Amlodipine Besylate (Norvasc -) 10 mg PO DAILY@0600 [facility] Last Admin: 01/11/19 05:41 Dose: 10 mg Docusate Sodium (Colace -) 300 mg PO DAILY [facility] Last Admin: 01/11/19 10:28 Dose: 300 mg Ferrous Sulfate (Feosol -) 325 mg PO DAILY [facility] Last Admin: 01/11/19 10:28 Dose: 325 mg Heparin Sodium (Porcine) (Heparin -) 5,000 unit SQ BID [facility] Last Admin: 01/11/19 09:40 Dose: 5,000 unit Hydralazine HCl (Apresoline -) 50 mg PO BID [facility] Last Admin: 01/11/19 10:30 Dose: Not Given Ceftriaxone Sodium 1 gm/ (Dextrose) 50 mls @ 100 mls/hr IVPB DAILY [facility]; Protocol Last Admin: 01/11/19 09:40 Dose: 100 mls/hr Insulin Aspart (Novolog Vial Sliding Scale -) 1 vial SQ ACHS [facility]; Protocol Last Admin: 01/11/19 06:03 Dose: Not Given Isosorbide Mononitrate (Imdur -) 30 mg PO DAILY [facility] Last Admin: 01/11/19 10:28 Dose: 30 mg Pantoprazole Sodium (Protonix -) 40 mg PO BID [facility] Last Admin: 01/11/19 10:28 Dose: 40 mg Rosuvastatin Calcium (Crestor -) 10 mg PO HS [facility] Last Admin: 01/10/19 21:06 Dose: 10 mg - Objective Vital Signs: Vital Signs Temperature 97.2 F L 01/11/19 06:00 Pulse Rate 67 01/11/19 06:00 Respiratory Rate 18 01/11/19 06:00 Blood Pressure 158/80 01/11/19 06:00 O2 Sat by Pulse Oximetry (%) 98 01/11/19 08:40 Constitutional: Yes: No Distress, Calm Eyes: Yes: Conjunctiva Clear HENT: Yes: Atraumatic Cardiovascular: Yes: Regular Rate and Rhythm Respiratory: Yes: Regular, Diminished Gastrointestinal: Yes: Normal Bowel Sounds, Soft Musculoskeletal: Yes: Muscle Weakness Extremities: Yes: WNL Edema: No Neurological: Yes: Alert, Oriented Psychiatric: Yes: Alert, Oriented Labs: CBC, BMP 01/10/19 06:00 01/11/19 09:25 INR, PTT INR 1.00 (0.83-1.09) 01/09/19 08:08 Microbiology 01/09/19 06:50 Blood - Peripheral Venous Blood Culture - Preliminary NO GROWTH OBTAINED AFTER 48 HOURS, INCUBATION TO CONTINUE FOR 3 DAYS. 01/09/19 06:50 Blood - Peripheral Venous Blood Culture - Preliminary NO GROWTH OBTAINED AFTER 48 HOURS, INCUBATION TO CONTINUE FOR 3 DAYS. 01/09/19 09:36 Urine - Urine - Catheterized Urine Culture - Final NO GROWTH OBTAINED Problem List - Problems (1) CKD (chronic kidney disease) Assessment/Plan: -BUN/Cr 89.6/3.1 -renal on board -monitor renal function Code(s): N18.9 - CHRONIC KIDNEY DISEASE, UNSPECIFIED (2) Hypoglycemia Assessment/Plan: -Endocrinology consult -[facility] -HgA1c 6.5% Code(s): E16.2 - HYPOGLYCEMIA, UNSPECIFIED (3) Hypothermia Assessment/Plan: -resolved Code(s): T68.XXXA - HYPOTHERMIA, INITIAL ENCOUNTER (4) Anemia Assessment/Plan: -Hg 10.2 -monitor H/H -Ferrous Sulfate -Low Fe in iron panel Code(s): D64.9 - ANEMIA, UNSPECIFIED Qualifiers: Anemia type: iron deficiency (5) CHF (congestive heart failure) Assessment/Plan: -daily weights -fluid restriction -strict I&Os -Furosemide as needed due to elevated renal function Code(s): I50.9 - HEART FAILURE, UNSPECIFIED Qualifiers: Heart failure type: diastolic (6) Diabetes Assessment/Plan: -Endocrinology consult -[facility] -HgA1c 6.5% Code(s): E11.9 - TYPE 2 DIABETES MELLITUS WITHOUT COMPLICATIONS Qualifiers: Diabetes mellitus type: type 2 Diabetes mellitus correction insulin use: with terminal carman use Diabetes mellitus complication status: with unspecified complications (7) HTN (hypertension) Assessment/Plan: -Hydralazine, Imdur, Amlodipine -low Na diet Code(s): I10 - ESSENTIAL (PRIMARY) HYPERTENSION Assessment/Plan see problem list dvt ppx
--- NOTE | 2019-01-11 11:36 | PN ---
Progress Note (short form) - Note Progress Note: Renal follow up for KACI Coverage for Dr. Story Seen and examined at the bedside sob is improved today no chest pain, abd pain feels a little dizzy no LOC or falls Vital Signs Temperature 97.2 F L 01/11/19 06:00 Pulse Rate 67 01/11/19 06:00 Respiratory Rate 18 01/11/19 06:00 Blood Pressure 158/80 01/11/19 06:00 O2 Sat by Pulse Oximetry (%) 98 01/11/19 08:40 Intake & Output 01/08/19 01/09/19 01/10/19 01/11/19 23:59 23:59 23:59 23:59 Intake Total 920 Balance 920 Weight 67.132 kg 67.188 kg 67.642 kg NAD awake and alert RRR Dec BS left lung base soft NT/ND no LE edema CBC, BMP 01/10/19 06:00 01/11/19 09:25 Current Medications Amlodipine Besylate (Norvasc -) 10 mg PO DAILY@0600 [facility] Last Admin: 01/11/19 05:41 Dose: 10 mg Docusate Sodium (Colace -) 300 mg PO DAILY [facility] Last Admin: 01/11/19 10:28 Dose: 300 mg Ferrous Sulfate (Feosol -) 325 mg PO DAILY [facility] Last Admin: 01/11/19 10:28 Dose: 325 mg Heparin Sodium (Porcine) (Heparin -) 5,000 unit SQ BID [facility] Last Admin: 01/11/19 09:40 Dose: 5,000 unit Hydralazine HCl (Apresoline -) 50 mg PO BID [facility] Last Admin: 01/11/19 10:30 Dose: Not Given Ceftriaxone Sodium 1 gm/ (Dextrose) 50 mls @ 100 mls/hr IVPB DAILY [facility]; Protocol Last Admin: 01/11/19 09:40 Dose: 100 mls/hr Insulin Aspart (Novolog Vial Sliding Scale -) 1 vial SQ ACHS [facility]; Protocol Last Admin: 01/11/19 10:49 Dose: Not Given Isosorbide Mononitrate (Imdur -) 30 mg PO DAILY [facility] Last Admin: 01/11/19 10:28 Dose: 30 mg Pantoprazole Sodium (Protonix -) 40 mg PO BID [facility] Last Admin: 01/11/19 10:28 Dose: 40 mg Rosuvastatin Calcium (Crestor -) 10 mg PO HS [facility] Last Admin: 01/10/19 21:06 Dose: 10 mg Impression 1. KACI 2. anemia 3. proteinuria 4. pleural effusions 5. htn 6. dm 7. CHF 8. CKD Plan Renal function stable will defer further diuretics as sob is improved and pt also has dizziness Trend renal function and electrolytes daily Jorge Holland DO
[2019-01-11] MEDS: ROSUVASTATIN CA 10 MG TABLET (FP) PO SCH (21:13)
[2019-01-11] MEDS ORDERED: ROSUVASTATIN CA 10 MG TABLET (FP) PO SCH (22:00)
--- NOTE | 2019-01-11 23:00 | CONSULT ---
Consult Consult Specialty:: endocrine Referred by:: pio cash MD. Reason for Consultation:: DMT2 - History of Present Illness Chief Complaint: low sugar History of Present Illness: 63 yo F w/PMH of DMT2,CKD, CHF, HTN, HLD, IBS, GERD, Anemia s/p recent admission for CHF,from [facility],found to have hypoglycemia,bs,40mg/dl,lethargic and diaphoretic,has diabetes for many years taking pills,however sugars have been difficult to control even at [facility].she has had poor appetite,nausea and bloating after any meal.she denies fever chills vomiting.r - Past Medical History Cardio/Vascular: Yes: CHF, HTN, Hyperlipdemia Gastrointestinal: Yes: Constipation, GERD ...: No Endocrine: Yes: Diabetes Mellitus (DM II) - Alcohol/Substance Use Hx Alcohol Use: No History of Substance Use: reports: None - Smoking History Smoking history: Never smoked Have you smoked in the past 12 months: No - Social History Usual Living Arrangement: With Spouse ADL: Independent Occupation: Unemployed History of Recent Travel: No Home Medications - Allergies Allergies/Adverse Reactions: Allergies Allergy/AdvReac Type Severity Reaction Status Date / Time No Known Allergies Allergy Verified 12/21/18 15:44 - Home Medications Home Medications: Ambulatory Orders Acetaminophen 650 mg PO QID PRN 01/09/19 Amlodipine Besylate 10 mg PO DAILY 01/09/19 Ammonium Lactate Cream [Lac-Hydrin 12% *Cream*] 1 applic TP DAILY 01/09/19 Docusate Sodium [Colace] 300 mg PO DAILY 01/09/19 Ferrous Sulfate 325 mg PO DAILY 01/09/19 Furosemide [Lasix -] 40 mg PO BID 01/09/19 Hydrocortisone 1% Ointment [Hytone 1% Ointment -] 1 applic TP DAILY 01/09/19 Insulin Detemir [Levemir Flextouch] 12 unit SQ HS 01/09/19 Insulin Detemir [Levemir Flextouch] 15 unit SQ AM 01/09/19 Isosorbide Mononitrate [Isosorbide Mononitrate ER] 30 mg PO DAILY 01/09/19 Metoprolol Tartrate [Lopressor -] 25 mg PO BID 01/09/19 Multivitamin [One-Daily Multi-Vitamin] 1 each PO DAILY 01/09/19 Pantoprazole Sodium 40 mg PO BID 01/09/19 Rosuvastatin Calcium [Crestor] 10 mg PO HS 01/09/19 Sennosides [Senna] 2 tab PO HS 01/09/19 Sodium Chloride Nasal [place] [[place] Nasal [place]] 2 spray NS BID PRN Valsartan 320 mg PO DAILY 01/09/19 Review of Systems - Review of Systems Constitutional: reports: Lethargy, Loss of Appetite, Weakness Eyes: reports: Blurred Vision HENT: reports: No Symptoms Neck: reports: No Symptoms Cardiovascular: reports: Shortness of Breath Respiratory: reports: Exercise Intolerance, SOB on Exertion Gastrointestinal: reports: Bloating, Constipation Genitourinary: reports: No Symptoms Breasts: reports: No Symptoms Reported Musculoskeletal: reports: Muscle Pain, Muscle Cramps, Muscle Weakness Integumentary: reports: No Symptoms Neurological: reports: Numbness, Weakness Physical Exam Vital Signs: Vital Signs Temperature 97.3 F L 01/11/19 22:00 Pulse Rate 68 01/11/19 22:00 Respiratory Rate 20 01/11/19 22:00 Blood Pressure 173/75 H 01/11/19 22:00 O2 Sat by Pulse Oximetry (%) 98 01/11/19 19:48 Constitutional: Yes: Anxious Eyes: Yes: EOM Intact HENT: Yes: Normocephalic Neck: Yes: Trachea Midline Cardiovascular: Yes: Regular Rate and Rhythm Respiratory: Yes: CTA Bilaterally Gastrointestinal: Yes: Normal Bowel Sounds ...Rectal Exam: Yes: Deferred Musculoskeletal: Yes: WNL Extremities: Yes: WNL Edema: Yes Edema: LLE: 1+, RLE: 1+ Neurological: Yes: Alert, Oriented Labs: CBC, BMP 01/10/19 06:00 01/11/19 09:25 Problem List - Problems (1) CKD (chronic kidney disease) Problems reviewed: Yes Code(s): N18.9 - CHRONIC KIDNEY DISEASE, UNSPECIFIED (2) Hypoglycemia Problems reviewed: Yes Code(s): E16.2 - HYPOGLYCEMIA, UNSPECIFIED (3) Hypothermia Problems reviewed: Yes Code(s): T68.XXXA - HYPOTHERMIA, INITIAL ENCOUNTER (4) KACI (acute kidney injury) Problems reviewed: Yes Code(s): N17.9 - ACUTE KIDNEY FAILURE, UNSPECIFIED (5) Abdominal pain Problems reviewed: Yes Code(s): R10.9 - UNSPECIFIED ABDOMINAL PAIN Qualifiers: Abdominal location: right lower quadrant Qualified Code(s): R10.31 - Right lower quadrant pain (6) Acute heart failure Problems reviewed: Yes Code(s): I50.9 - HEART FAILURE, UNSPECIFIED Qualifiers: Heart failure type: unspecified Qualified Code(s): I50.9 - Heart failure, unspecified (7) Acute on chronic congestive heart failure Code(s): I50.9 - HEART FAILURE, UNSPECIFIED Qualifiers: Heart failure type: systolic Qualified Code(s): I50.23 - Acute on chronic systolic (congestive) heart failure Assessment/Plan Current Active Problems DM T 2,CKD,NEUROHYPOGLYCEMIA CKD (chronic kidney disease) (Acute) Hypoglycemia (Acute) Hypothermia (Acute) HYPERTENSIVE CKD, HLD IBS GASTROPARESIS Abnormal Lab Results 01/11/19 09:25 Chloride 108 H Anion Gap 7 L BUN 76.9 H Creatinine 3.0 H Random Glucose 134 H Calcium 8.3 L Laboratory Results - last 24 hr 01/11/19 01/11/19 01/11/19 05:41 09:25 10:47 Sodium 137 Potassium 4.2 Chloride 108 H Carbon Dioxide 22 Anion Gap 7 L BUN 76.9 H Creatinine 3.0 H Est GFR (CKD-EPI)AfAm 18.53 Est GFR (CKD-EPI)NonAf 15.98 POC Glucometer 93 146 Random Glucose 134 H Calcium 8.3 L Magnesium 2.4 01/11/19 01/11/19 17:02 21:12 Sodium Potassium Chloride Carbon Dioxide Anion Gap BUN Creatinine Est GFR (CKD-EPI)AfAm Est GFR (CKD-EPI)NonAf POC Glucometer 168 129 Random Glucose Calcium Magnesium PLAN: BGM QID NOVOLOG SCALE HBA1C LEVEMIR 10UNITS AM GI CONSULT TSH FREE T4
[2019-01-12] MEDS: INSULIN SLIDING SCALE (NOVOLOG) 1 VIAL SQ SCH ×4 (06:30→22:15)
[2019-01-12 06:41] LABS: HEMATOCRIT 29.7 % (32.4-45.2); HEMOGLOBIN 9.7 GM/dL (10.7-15.3); MCH 26.5 pg (25.7-33.7); MCHC 32.7 g/dl (32.0-36.0); MEAN CELL VOLUME 80.9 fl (80-96); PLATELET COUNT 213 K/MM3 (134-434); RBC 3.67 M/mm3 (3.60-5.2); RDW 18.9 % (11.6-15.6); WHITE BLOOD COUNT 4.6 K/mm3 (4.0-10.0)
[2019-01-12] MEDS: amLODIPine BESYLATE 10 MG TABLET (FP) PO SCH (06:46)
[2019-01-12 07:18] LABS: ALBUMIN 2.6 g/dl (3.4-5.0); BILIRUBIN,TOTAL 0.3 mg/dL (0.2-1); BLOOD UREA NITROGEN 81.4 mg/dL (7-18); CALCIUM 8.5 mg/dL (8.5-10.1); CREATININE 2.9 mg/dL (0.55-1.3); POTASSIUM 4.4 mmol/L (3.5-5.1); TOT PROT 6.3 g/dl (6.4-8.2)
[2019-01-12] MEDS ORDERED: DEXTROSE 5%-WATER - 50 ML IVPB ONE (08:50)
[2019-01-12] MEDS ORDERED: cefTRIAXone SODIUM 1 GM VIAL ONE (08:50)
--- NOTE | 2019-01-12 09:00 | PN ---
Progress Note, Physician - Current Medication List Current Medications: Active Medications Amlodipine Besylate (Norvasc -) 10 mg PO DAILY@0600 [facility] Last Admin: 01/12/19 06:46 Dose: 10 mg Docusate Sodium (Colace -) 300 mg PO DAILY [facility] Last Admin: 01/11/19 10:28 Dose: 300 mg Ferrous Sulfate (Feosol -) 325 mg PO DAILY [facility] Last Admin: 01/11/19 10:28 Dose: 325 mg Heparin Sodium (Porcine) (Heparin -) 5,000 unit SQ BID [facility] Last Admin: 01/11/19 21:13 Dose: 5,000 unit Hydralazine HCl (Apresoline -) 50 mg PO BID [facility] Last Admin: 01/11/19 21:13 Dose: 50 mg Ceftriaxone Sodium 1 gm/ (Dextrose) 50 mls @ 100 mls/hr IVPB DAILY [facility]; Protocol Last Admin: 01/11/19 09:40 Dose: 100 mls/hr Insulin Aspart (Novolog Vial Sliding Scale -) 1 vial SQ ACHS [facility]; Protocol Last Admin: 01/12/19 06:30 Dose: Not Given Insulin Detemir (Levemir Vial) 10 units SQ AM [facility] Isosorbide Mononitrate (Imdur -) 30 mg PO DAILY [facility] Last Admin: 01/11/19 10:28 Dose: 30 mg Pantoprazole Sodium (Protonix -) 40 mg PO BID [facility] Last Admin: 01/11/19 21:13 Dose: 40 mg Rosuvastatin Calcium (Crestor -) 10 mg PO HS [facility] Last Admin: 01/11/19 21:13 Dose: 10 mg - Objective Vital Signs: Vital Signs Temperature 97.1 F L 01/12/19 05:41 Pulse Rate 75 01/12/19 05:41 Respiratory Rate 20 01/12/19 05:41 Blood Pressure 158/83 01/12/19 05:41 O2 Sat by Pulse Oximetry (%) 98 01/11/19 19:48 Cardiovascular: Yes: S1, S2 Respiratory: Yes: Regular, CTA Bilaterally Gastrointestinal: Yes: Normal Bowel Sounds, Soft Neurological: Yes: Alert, Oriented, Weakness Labs: CBC, BMP 01/12/19 05:44 01/12/19 05:44 INR, PTT INR 1.00 (0.83-1.09) 01/09/19 08:08 Assessment/Plan - Problems (1) CKD (chronic kidney disease) Assessment/Plan: -BUN/Cr High--Hold diuretics -renal on board -monitor renal function Code(s): N18.9 - CHRONIC KIDNEY DISEASE, UNSPECIFIED (2) Hypoglycemia-Diabetes Assessment/Plan: -Endocrinology consult noted on levemir -BGM ACHS -[facility] -HgA1c 6.5% Code(s): E16.2 - HYPOGLYCEMIA, UNSPECIFIED (3) Hypothermia Assessment/Plan: -resolved Microbiology 01/09/19 06:50 Blood - Peripheral Venous Blood Culture - Preliminary NO GROWTH OBTAINED AFTER 72 HOURS, INCUBATION TO CONTINUE FOR 2 DAYS. 01/09/19 06:50 Blood - Peripheral Venous Blood Culture - Preliminary NO GROWTH OBTAINED AFTER 72 HOURS, INCUBATION TO CONTINUE FOR 2 DAYS. 01/09/19 09:36 Urine - Urine - Catheterized Urine Culture - Final NO GROWTH OBTAINED Code(s): T68.XXXA - HYPOTHERMIA, INITIAL ENCOUNTER (4) Anemia Assessment/Plan: -Hg 10.2 -monitor H/H -Ferrous Sulfate -Low Fe in iron panel Code(s): D64.9 - ANEMIA, UNSPECIFIED Qualifiers: Anemia type: iron deficiency (5) CHF (congestive heart failure) Assessment/Plan: -daily weights -fluid restriction -strict I&Os -Furosemide as needed due to elevated renal function Code(s): I50.9 - HEART FAILURE, UNSPECIFIED Qualifiers: Heart failure type: diastolic (6) Bradycardia Assessment/Plan: -Resolved -Off B-Blockers (7) HTN (hypertension) Assessment/Plan: -Hydralazine, Imdur, Amlodipine -low Na diet Code(s): I10 - ESSENTIAL (PRIMARY) HYPERTENSION
[2019-01-12] MEDS: INSULIN (LEVEMIR) 100 UNITS/ML UNITS SQ SCH (09:02)
[2019-01-12] MEDS: FERROUS SO4 325 MG TABLET (FP) PO SCH (09:05)
[2019-01-12] MEDS: hydrALAZINE HCL 25 MG TABLET (FP) PO SCH ×2 (09:05→22:21)
[2019-01-12] MEDS: DOCUSATE SODIUM 100 MG CAPSULE (FP) PO SCH (09:05)
[2019-01-12] MEDS: PANTOPRAZOLE 40 MG TABLET (FP) PO SCH ×2 (09:06→22:22)
[2019-01-12] MEDS: CEFTRIAXONE 1 GM in DEXTROSE 5%-WATER - 50 ML IVPB SCH (09:06)
[2019-01-12] MEDS: HEPARIN NA (PORCINE) 5,000 UNITS/ML 1ML VIAL SQ SCH ×2 (09:06→22:22)
[2019-01-12] MEDS: ISOSORBIDE MONONITRATE 30 MG TAB.SR.24H (FP) PO SCH (09:06)
[2019-01-12] MEDS: CARVEDILOL 3.125 MG TABLET (FP) PO SCH ×2 (09:19→22:22)
[2019-01-12 11:30] LABS: N-TERMINAL BNP 13765.2 pg/ml (5-125)
--- NOTE | 2019-01-12 11:38 | PN ---
Progress Note, Physician History of Present Illness: Pt seen and examined at bedside. She is awake and alert. She denies shortness of breath. - Current Medication List Current Medications: Active Medications Amlodipine Besylate (Norvasc -) 10 mg PO DAILY@0600 [facility] Last Admin: 01/12/19 06:46 Dose: 10 mg Carvedilol (Coreg -) 3.125 mg PO BID [facility] Last Admin: 01/12/19 09:19 Dose: 3.125 mg Docusate Sodium (Colace -) 300 mg PO DAILY [facility] Last Admin: 01/12/19 09:05 Dose: 300 mg Ferrous Sulfate (Feosol -) 325 mg PO DAILY [facility] Last Admin: 01/12/19 09:05 Dose: 325 mg Heparin Sodium (Porcine) (Heparin -) 5,000 unit SQ BID [facility] Last Admin: 01/12/19 09:06 Dose: 5,000 unit Hydralazine HCl (Apresoline -) 50 mg PO BID [facility] Last Admin: 01/12/19 09:05 Dose: 50 mg Ceftriaxone Sodium 1 gm/ (Dextrose) 50 mls @ 100 mls/hr IVPB DAILY [facility]; Protocol Last Admin: 01/12/19 09:06 Dose: 100 mls/hr Insulin Aspart (Novolog Vial Sliding Scale -) 1 vial SQ ACHS [facility]; Protocol Last Admin: 01/12/19 11:34 Dose: Not Given Insulin Detemir (Levemir Vial) 10 units SQ AM [facility] Last Admin: 01/12/19 09:02 Dose: Not Given Isosorbide Mononitrate (Imdur -) 30 mg PO DAILY [facility] Last Admin: 01/12/19 09:06 Dose: 30 mg Pantoprazole Sodium (Protonix -) 40 mg PO BID [facility] Last Admin: 01/12/19 09:06 Dose: 40 mg Rosuvastatin Calcium (Crestor -) 10 mg PO HS [facility] Last Admin: 01/11/19 21:13 Dose: 10 mg - Objective Vital Signs: Vital Signs Temperature 97.5 F L 01/12/19 10:00 Pulse Rate 72 01/12/19 10:00 Respiratory Rate 20 01/12/19 10:00 Blood Pressure 155/79 01/12/19 10:00 O2 Sat by Pulse Oximetry (%) 97 01/12/19 10:00 Constitutional: Yes: Calm Eyes: Yes: Conjunctiva Clear HENT: Yes: Atraumatic Neck: Yes: Supple Cardiovascular: Yes: S1, S2 Respiratory: Yes: CTA Bilaterally Gastrointestinal: Yes: Soft Genitourinary: Yes: WNL Musculoskeletal: Yes: WNL Edema: Yes Edema: LLE: Trace, RLE: Trace Neurological: Yes: Oriented Psychiatric: Yes: Oriented Labs: CBC, BMP 01/12/19 05:44 01/12/19 05:44 INR, PTT INR 1.00 (0.83-1.09) 01/09/19 08:08 Problem List - Problems (1) CKD (chronic kidney disease) Code(s): N18.9 - CHRONIC KIDNEY DISEASE, UNSPECIFIED (2) Hypoglycemia Code(s): E16.2 - HYPOGLYCEMIA, UNSPECIFIED (3) KACI (acute kidney injury) Code(s): N17.9 - ACUTE KIDNEY FAILURE, UNSPECIFIED (4) CHF (congestive heart failure) Code(s): I50.9 - HEART FAILURE, UNSPECIFIED Qualifiers: Heart failure type: diastolic Assessment/Plan Current Medications Generic Name Dose Route Start Last Admin Trade Name Freq PRN Reason Stop Dose Admin Amlodipine Besylate 10 mg 01/10/19 06:00 01/12/19 06:46 Norvasc - PO 10 mg DAILY@0600 SUSAN Administration Carvedilol 3.125 mg 01/12/19 10:00 01/12/19 09:19 Coreg - PO 3.125 mg BID SUSAN Administration Docusate Sodium 300 mg 01/11/19 10:00 01/12/19 09:05 Colace - PO 300 mg DAILY SUSAN Administration Ferrous Sulfate 325 mg 01/11/19 10:00 01/12/19 09:05 Feosol - PO 325 mg DAILY SUSAN Administration Heparin Sodium (Porcine) 5,000 unit 01/09/19 22:00 01/12/19 09:06 Heparin - SQ 5,000 unit BID SUSAN Administration Hydralazine HCl 50 mg 01/11/19 10:00 01/12/19 09:05 Apresoline - PO 50 mg BID SUSAN Administration Ceftriaxone Sodium 1 gm/ 50 mls @ 100 mls/hr 01/10/19 10:00 01/12/19 09:06 Dextrose IVPB 100 mls/hr DAILY SUSAN Administration Protocol Insulin Aspart 1 vial 01/12/19 07:00 01/12/19 11:34 Novolog Vial Sliding Scale - SQ Not Given ACHS [facility] Protocol Insulin Detemir 10 units 01/12/19 07:00 01/12/19 09:02 Levemir Vial SQ Not Given AM [facility] Isosorbide Mononitrate 30 mg 01/11/19 10:00 01/12/19 09:06 Imdur - PO 30 mg DAILY [facility]US[facility] Administration Pantoprazole Sodium 40 mg 01/11/19 10:00 01/12/19 09:06 Protonix - PO 40 mg BID SUSAN Administration Rosuvastatin Calcium 10 mg 01/09/19 22:00 01/11/19 21:13 Crestor - PO 10 mg HS SUSAN Administration Impression 1. KACI 2. anemia 3. proteinuria 4. pleural effusions 5. htn 6. dm 7. CHF 8. CKD Plan - resume po lasix - monitor renal function - repeat labs in am - kidney biopsy showed diabetic disease and some atn - avoid nsaids
--- NOTE | 2019-01-12 14:55 | ECHO ---
Name: MARCEL MENDEZ Exam:Adult Echocardiogram Study Date: 01/12/2019 01:57 PM Age: 63 yrs Height: 61 in Weight: 142 lb BSA: 1.6 m2 MMode/2D Measurements & Calculations IVSd: 1.2 cm Ao root diam: 2.8 cm LVIDd: 5.4 cm LA dimension: 4.3 cm LVIDs: 3.7 cm ACS: 1.7 cm LVPWd: 1.1 cm IVSs: 1.3 cm LVPWs: 1.2 cm EDV(Teich): 141.7 ml ESV(Teich): 56.3 ml Doppler Measurements & Calculations MV E max chaparro: 95.0 cm/sec Ao V2 max: 139.0 cm/sec MV A max chaparro: 77.2 cm/sec Ao max P.7 mmHg MV E/A: 1.2 MR max chaparro: 404.8 cm/sec TR max chaparro: 261.2 cm/sec MR max P.6 mmHg TR max P.3 mmHg Med Peak E' Chaparro: 5.0 cm/sec Med E/e': 18.8 Lat Peak E' Chaparro: 5.8 cm/sec Lat E/e': 16.5 Procedure A complete two-dimensional transthoracic echocardiogram was performed (2D, M-mode, Doppler and color flow Doppler). Left Ventricle The left ventricle is normal in size. There is mild concentric left ventricular hypertrophy. Left anastasia tricular systolic function is low normal. Ejection Fraction = 50-55%. Diastolic dysfunction, Grade II (pseudonormalization pattern). Ratio E/E'= 20. No regional wall motion abnormalities noted. Right Ventricle The right ventricle is normal size. The right ventricular systolic function is normal. Atria The left atrium is mildly dilated. Right atrial size is normal. Mitral Valve There is mild mitral valve thickening. There is mild mitral regurgitation. Tricuspid Valve The tricuspid valve is normal in structure and function. There is mild tricuspid regurgitation. Pulmo nary artery systolic pressure is at least 33 mmHg if RA pressure is assumed 3 mmHg. Aortic Valve There is mild aortic sclerosis.;. No aortic regurgitation is present. Pulmonic Valve The pulmonic valve is not well visualized. Great Vessels The aortic root is normal size. Pericardium/Pleura Small pericardial effusion (<1cm). There is a pleural effusion present. Interpretation Summary The left ventricle is normal in size. There is mild concentric left ventricular hypertrophy. Left ventricular systolic function is low normal. No regional wall motion abnormalities noted. Ejection Fraction = 50-55%. Diastolic dysfunction, Grade II (pseudonormalization pattern). Ratio E/E'= 20 The right ventricular systolic function is normal. The left atrium is mildly dilated. Right atrial size is normal. There is mild mitral valve thickening. There is mild mitral regurgitation. There is mild tricuspid regurgitation. Pulmonary artery systolic pressure is at least 33 mmHg if RA pressure is assumed 3 mmHg There is mild aortic sclerosis. Small pericardial effusion (<1cm) There is a pleural effusion present. Fidel Serrano MD 01/12/2019 02:55 PM
[2019-01-12] MEDS: FUROSEMIDE 40 MG TABLET (FP) PO SCH (15:31)
[2019-01-12] MEDS: ROSUVASTATIN CA 10 MG TABLET (FP) PO SCH (22:22)
[2019-01-13] MEDS: INSULIN SLIDING SCALE (NOVOLOG) 1 VIAL SQ SCH ×4 (06:28→21:43)
[2019-01-13] MEDS: amLODIPine BESYLATE 10 MG TABLET (FP) PO SCH (06:37)
[2019-01-13] MEDS: INSULIN (LEVEMIR) 100 UNITS/ML UNITS SQ SCH (08:27)
--- NOTE | 2019-01-13 08:46 | PN ---
Progress Note, Physician - Current Medication List Current Medications: Active Medications Amlodipine Besylate (Norvasc -) 10 mg PO DAILY@0600 [facility] Last Admin: 01/13/19 06:37 Dose: 10 mg Carvedilol (Coreg -) 3.125 mg PO BID [facility] Last Admin: 01/12/19 22:22 Dose: 3.125 mg Docusate Sodium (Colace -) 300 mg PO DAILY [facility] Last Admin: 01/12/19 09:05 Dose: 300 mg Ferrous Sulfate (Feosol -) 325 mg PO DAILY [facility] Last Admin: 01/12/19 09:05 Dose: 325 mg Furosemide (Lasix -) 40 mg PO DAILY [facility] Last Admin: 01/12/19 15:31 Dose: 40 mg Heparin Sodium (Porcine) (Heparin -) 5,000 unit SQ BID [facility] Last Admin: 01/12/19 22:22 Dose: 5,000 unit Hydralazine HCl (Apresoline -) 50 mg PO BID [facility] Last Admin: 01/12/19 22:21 Dose: 50 mg Ceftriaxone Sodium 1 gm/ (Dextrose) 50 mls @ 100 mls/hr IVPB DAILY [facility]; Protocol Last Admin: 01/12/19 09:06 Dose: 100 mls/hr Insulin Aspart (Novolog Vial Sliding Scale -) 1 vial SQ ACHS [facility]; Protocol Last Admin: 01/13/19 06:28 Dose: Not Given Insulin Detemir (Levemir Vial) 10 units SQ AM [facility] Last Admin: 01/13/19 08:27 Dose: Not Given Isosorbide Mononitrate (Imdur -) 30 mg PO DAILY [facility] Last Admin: 01/12/19 09:06 Dose: 30 mg Pantoprazole Sodium (Protonix -) 40 mg PO BID [facility] Last Admin: 01/12/19 22:22 Dose: 40 mg Rosuvastatin Calcium (Crestor -) 10 mg PO HS [facility] Last Admin: 01/12/19 22:22 Dose: 10 mg - Objective Vital Signs: Vital Signs Temperature 98.3 F 01/13/19 06:00 Pulse Rate 71 01/13/19 06:00 Respiratory Rate 18 01/13/19 06:00 Blood Pressure 149/79 01/13/19 06:00 O2 Sat by Pulse Oximetry (%) 98 01/12/19 21:00 Cardiovascular: Yes: S1, S2 Respiratory: Yes: Regular, CTA Bilaterally Gastrointestinal: Yes: Normal Bowel Sounds, Soft Neurological: Yes: Alert, Weakness Labs: CBC, BMP 01/12/19 05:44 01/12/19 05:44 INR, PTT INR 1.00 (0.83-1.09) 01/09/19 08:08 Assessment/Plan - Problems (1) CKD (chronic kidney disease) Assessment/Plan: -BUN/Cr High--Hold diuretics -renal on board -monitor renal function Code(s): N18.9 - CHRONIC KIDNEY DISEASE, UNSPECIFIED (2) Hypoglycemia-Diabetes Assessment/Plan: -Endocrinology consult noted on levemir -BGM ACHS -ISS -HgA1c 6.5% Code(s): E16.2 - HYPOGLYCEMIA, UNSPECIFIED (3) Hypothermia Assessment/Plan: -resolved Microbiology 01/09/19 06:50 Blood - Peripheral Venous Blood Culture - Preliminary NO GROWTH OBTAINED AFTER 72 HOURS, INCUBATION TO CONTINUE FOR 2 DAYS. 01/09/19 06:50 Blood - Peripheral Venous Blood Culture - Preliminary NO GROWTH OBTAINED AFTER 72 HOURS, INCUBATION TO CONTINUE FOR 2 DAYS. 01/09/19 09:36 Urine - Urine - Catheterized Urine Culture - Final NO GROWTH OBTAINED Code(s): T68.XXXA - HYPOTHERMIA, INITIAL ENCOUNTER (4) Anemia Assessment/Plan: -Hg 9.7 -monitor H/H -Ferrous Sulfate -Low Fe in iron panel Code(s): D64.9 - ANEMIA, UNSPECIFIED Qualifiers: Anemia type: iron deficiency (5) CHF (congestive heart failure) Assessment/Plan: -daily weights -fluid restriction -strict I&Os -Furosemide as needed due to elevated renal function Code(s): I50.9 - HEART FAILURE, UNSPECIFIED Qualifiers: Heart failure type: diastolic (6) Bradycardia Assessment/Plan: -Resolved -Off B-Blockers (7) HTN (hypertension) Assessment/Plan: -Hydralazine, Imdur, Amlodipine -low Na diet Code(s): I10 - ESSENTIAL (PRIMARY) HYPERTENSION Repeat labs and ekg if stable plan for dc
[2019-01-13] MEDS ORDERED: cefTRIAXone SODIUM 1 GM VIAL ONE (08:55)
[2019-01-13] MEDS ORDERED: DEXTROSE 5%-WATER - 50 ML IVPB ONE (08:55)
[2019-01-13] MEDS: HEPARIN NA (PORCINE) 5,000 UNITS/ML 1ML VIAL SQ SCH ×2 (09:23→21:42)
[2019-01-13] MEDS: DOCUSATE SODIUM 100 MG CAPSULE (FP) PO SCH (09:23)
[2019-01-13] MEDS: PANTOPRAZOLE 40 MG TABLET (FP) PO SCH ×2 (09:23→21:42)
[2019-01-13] MEDS: ISOSORBIDE MONONITRATE 30 MG TAB.SR.24H (FP) PO SCH (09:24)
[2019-01-13] MEDS: FUROSEMIDE 40 MG TABLET (FP) PO SCH (09:24)
[2019-01-13] MEDS: FERROUS SO4 325 MG TABLET (FP) PO SCH (09:24)
[2019-01-13] MEDS: hydrALAZINE HCL 25 MG TABLET (FP) PO SCH ×2 (09:24→21:42)
[2019-01-13] MEDS: CARVEDILOL 3.125 MG TABLET (FP) PO SCH ×2 (09:25→21:42)
[2019-01-13] MEDS: CEFTRIAXONE 1 GM in DEXTROSE 5%-WATER - 50 ML IVPB SCH (09:25)
[2019-01-13 09:30] LABS: BASO % 1.5 % (0-2.0); EOS % 5.4 % (0-4.5); HEMATOCRIT 30.8 % (32.4-45.2); MCH 26.3 pg (25.7-33.7); MCHC 32.5 g/dl (32.0-36.0); MEAN CELL VOLUME 80.9 fl (80-96); MEAN PLT VOLUME 7.6 fl (7.5-11.1); MONO % 6.8 % (3.8-10.2); NEUT % 74.3 % (42.8-82.8); PLATELET COUNT 193 K/MM3 (134-434); RBC 3.81 M/mm3 (3.60-5.2); RDW 18.3 % (11.6-15.6); WHITE BLOOD COUNT 4.6 K/mm3 (4.0-10.0)
--- NOTE | 2019-01-13 09:44 | EKG ---
Test Reason : Blood Pressure : / mmHG Vent. Rate : 069 BPM Atrial Rate : 069 BPM P-R Int : 200 ms QRS Dur : 090 ms QT Int : 434 ms P-R-T Axes : 024 023 021 degrees QTc Int : 465 ms NORMAL SINUS RHYTHM POSSIBLE LEFT ATRIAL ENLARGEMENT BORDERLINE ECG WHEN COMPARED WITH ECG OF 09-JAN-2019 06:59, VENT. RATE HAS INCREASED BY 26 BPM NONSPECIFIC T WAVE ABNORMALITY, WORSE IN INFERIOR LEADS Confirmed by MD CEASAR, ROSHAN ([id number]) on 01/13/2019 9:44:07 AM Referred By: Zbigniew SALOMON Confirmed By:ROSHAN MCDONOUGH MD
[2019-01-13 09:57] LABS: BLOOD UREA NITROGEN 70.5 mg/dL (7-18); CREATININE 2.8 mg/dL (0.55-1.3)
[2019-01-13 09:58] LABS: ALBUMIN 2.6 g/dl (3.4-5.0); BILIRUBIN,TOTAL 0.2 mg/dL (0.2-1); CALCIUM 8.4 mg/dL (8.5-10.1); POTASSIUM 4.4 mmol/L (3.5-5.1); TOT PROT 6.5 g/dl (6.4-8.2)
--- NOTE | 2019-01-13 11:36 | PN ---
Progress Note, Physician History of Present Illness: Pt seen and examined at bedside. She is awake and alert. She denies shortness of breath. - Current Medication List Current Medications: Active Medications Amlodipine Besylate (Norvasc -) 10 mg PO DAILY@0600 [facility] Last Admin: 01/13/19 06:37 Dose: 10 mg Carvedilol (Coreg -) 3.125 mg PO BID [facility] Last Admin: 01/13/19 09:25 Dose: 3.125 mg Docusate Sodium (Colace -) 300 mg PO DAILY [facility] Last Admin: 01/13/19 09:23 Dose: 300 mg Ferrous Sulfate (Feosol -) 325 mg PO DAILY [facility] Last Admin: 01/13/19 09:24 Dose: 325 mg Furosemide (Lasix -) 40 mg PO DAILY [facility] Last Admin: 01/13/19 09:24 Dose: 40 mg Heparin Sodium (Porcine) (Heparin -) 5,000 unit SQ BID [facility] Last Admin: 01/13/19 09:23 Dose: 5,000 unit Hydralazine HCl (Apresoline -) 50 mg PO BID [facility] Last Admin: 01/13/19 09:24 Dose: 50 mg Ceftriaxone Sodium 1 gm/ (Dextrose) 50 mls @ 100 mls/hr IVPB DAILY [facility]; Protocol Last Admin: 01/13/19 09:25 Dose: 100 mls/hr Insulin Aspart (Novolog Vial Sliding Scale -) 1 vial SQ ACHS [facility]; Protocol Last Admin: 01/13/19 10:59 Dose: Not Given Insulin Detemir (Levemir Vial) 10 units SQ AM [facility] Last Admin: 01/13/19 08:27 Dose: Not Given Isosorbide Mononitrate (Imdur -) 30 mg PO DAILY [facility] Last Admin: 01/13/19 09:24 Dose: 30 mg Pantoprazole Sodium (Protonix -) 40 mg PO BID [facility] Last Admin: 01/13/19 09:23 Dose: 40 mg Rosuvastatin Calcium (Crestor -) 10 mg PO HS [facility] Last Admin: 01/12/19 22:22 Dose: 10 mg - Objective Vital Signs: Vital Signs Temperature 98.1 F 01/13/19 10:00 Pulse Rate 73 01/13/19 10:00 Respiratory Rate 18 01/13/19 10:00 Blood Pressure 157/83 01/13/19 10:00 O2 Sat by Pulse Oximetry (%) 99 01/13/19 09:00 Constitutional: Yes: Calm Eyes: Yes: Conjunctiva Clear HENT: Yes: Atraumatic Neck: Yes: Supple Cardiovascular: Yes: S1, S2 Respiratory: Yes: CTA Bilaterally Gastrointestinal: Yes: Soft Genitourinary: Yes: WNL Musculoskeletal: Yes: WNL Extremities: Yes: WNL Edema: No Neurological: Yes: Oriented Psychiatric: Yes: Oriented Labs: CBC, BMP 01/13/19 09:22 01/13/19 09:22 INR, PTT INR 1.00 (0.83-1.09) 01/09/19 08:08 Problem List - Problems (1) CKD (chronic kidney disease) Code(s): N18.9 - CHRONIC KIDNEY DISEASE, UNSPECIFIED (2) Hypoglycemia Code(s): E16.2 - HYPOGLYCEMIA, UNSPECIFIED (3) KAIC (acute kidney injury) Code(s): N17.9 - ACUTE KIDNEY FAILURE, UNSPECIFIED (4) CHF (congestive heart failure) Code(s): I50.9 - HEART FAILURE, UNSPECIFIED Qualifiers: Heart failure type: diastolic Assessment/Plan Current Medications Generic Name Dose Route Start Last Admin Trade Name Freq PRN Reason Stop Dose Admin Amlodipine Besylate 10 mg 01/10/19 06:00 01/13/19 06:37 Norvasc - PO 10 mg DAILY@0600 [facility] Administration Carvedilol 3.125 mg 01/12/19 10:00 01/13/19 09:25 Coreg - PO 3.125 mg BID SUSAN Administration Docusate Sodium 300 mg 01/11/19 10:00 01/13/19 09:23 Colace - PO 300 mg DAILY [facility]USAN Administration Ferrous Sulfate 325 mg 01/11/19 10:00 01/13/19 09:24 Feosol - PO 325 mg DAILY [facility] Administration Furosemide 40 mg 01/12/19 11:45 01/13/19 09:24 Lasix - PO 40 mg DAILY [facility] Administration Heparin Sodium (Porcine) 5,000 unit 01/09/19 22:00 01/13/19 09:23 Heparin - SQ 5,000 unit BID [facility]USAN Administration Hydralazine HCl 50 mg 01/11/19 10:00 01/13/19 09:24 Apresoline - PO 50 mg BID [facility]USAN Administration Ceftriaxone Sodium 1 gm/ 50 mls @ 100 mls/hr 01/10/19 10:00 01/13/19 09:25 Dextrose IVPB 100 mls/hr DAILY [facility] Administration Protocol Insulin Aspart 1 vial 01/12/19 07:00 01/13/19 10:59 Novolog Vial Sliding Scale - SQ Not Given ACHS [facility] Protocol Insulin Detemir 10 units 01/12/19 07:00 01/13/19 08:27 Levemir Vial SQ Not Given AM [facility] Isosorbide Mononitrate 30 mg 01/11/19 10:00 01/13/19 09:24 Imdur - PO 30 mg DAILY [facility] Administration Pantoprazole Sodium 40 mg 01/11/19 10:00 01/13/19 09:23 Protonix - PO 40 mg BID [facility]USAN Administration Rosuvastatin Calcium 10 mg 01/09/19 22:00 01/12/19 22:22 Crestor - PO 10 mg HS [facility]AN Administration Valsartan 160 mg 01/13/19 11:45 Diovan - PO DAILY [facility] Impression 1. KACI 2. anemia 3. proteinuria 4. pleural effusions 5. htn 6. dm 7. CHF 8. CKD Plan - cont lasix po - restart diovan - monitor bp, improving - kidney biopsy showed diabetic disease and some atn - avoid nsaids
[2019-01-13] MEDS: VALSARTAN 160 MG TABLET (UD) PO SCH (12:07)
--- NOTE | 2019-01-13 12:36 | CONSULT ---
Consult Consult Specialty:: PM&R Dr Ley for Dr Santizo - History of Present Illness Chief Complaint: nausea History of Present Illness: This is a 63 year old woman with a medical history of CHF, HTN, HLD, GERD, IBS with gastroparesis, chronic constipation, anemia, DMT2 with diabetic nephropathy , who was recently admitted to [facility] with CHF exacerbation then was sent to [facility] for NONI, who was sent from [facility] 03/11/18 with hypothermia (89.9 in ED), hypoglycemia (40s at [facility]) and bradycardia (30s in ED). Renal was consulted for KACI on CKD c/b ATN and diabetic nephropathy. Cards was consulted for bradycardia, who attributed it to medications versus hypothermia, without CHF exacerbation. Endo was consulted for hypoglycemia, who adjusted DM medications. She was seen by PT, and on 01/12/19 she was Supervision to Contact Guard in Transfers, and ambulated 50 feet Contact Guard with Rolling Walker. Physiatry is being consulted for further recommendations. - Past Medical History Cardio/Vascular: Yes: CHF, HTN, Hyperlipdemia Gastrointestinal: Yes: Constipation, GERD ...: No Endocrine: Yes: Diabetes Mellitus (DM II) - Alcohol/Substance Use Hx Alcohol Use: No History of Substance Use: reports: None - Smoking History Smoking history: Never smoked Have you smoked in the past 12 months: No - Social History Usual Living Arrangement: With Spouse (in house with 5 steps to enter from front and none from driveway) ADL: Independent (Independent ADLs/ IADLs without AD) Occupation: Unemployed History of Recent Travel: No Home Medications - Allergies Allergies/Adverse Reactions: Allergies Allergy/AdvReac Type Severity Reaction Status Date / Time No Known Allergies Allergy Verified 12/21/18 15:44 - Home Medications Home Medications: Ambulatory Orders Acetaminophen 650 mg PO QID PRN 01/09/19 Amlodipine Besylate 10 mg PO DAILY 01/09/19 Ammonium Lactate Cream [Lac-Hydrin 12% *Cream*] 1 applic TP DAILY 01/09/19 Docusate Sodium [Colace] 300 mg PO DAILY 01/09/19 Ferrous Sulfate 325 mg PO DAILY 01/09/19 Furosemide [Lasix -] 40 mg PO BID 01/09/19 Hydrocortisone 1% Ointment [Hytone 1% Ointment -] 1 applic TP DAILY 01/09/19 Insulin Detemir [Levemir Flextouch] 12 unit SQ HS 01/09/19 Insulin Detemir [Levemir Flextouch] 15 unit SQ AM 01/09/19 Isosorbide Mononitrate [Isosorbide Mononitrate ER] 30 mg PO DAILY 01/09/19 Metoprolol Tartrate [Lopressor -] 25 mg PO BID 01/09/19 Multivitamin [One-Daily Multi-Vitamin] 1 each PO DAILY 01/09/19 Pantoprazole Sodium 40 mg PO BID 01/09/19 Rosuvastatin Calcium [Crestor] 10 mg PO HS 01/09/19 Sennosides [Senna] 2 tab PO HS 01/09/19 Sodium Chloride Nasal [place] [[place] Nasal [place]] 2 spray NS BID PRN Valsartan 320 mg PO DAILY 01/09/19 Review of Systems Findings/Remarks: Denies fevers, chills, changes in vision/ hearing/ mood, CP, SOB, vomiting, dysuria, muscle/ joint pain, numbness/ paresthesias Notes mild abdominal discomfort, nausea, intermittent constipation/ diarrhea, and being diffusely weak Physical Exam Vital Signs: Vital Signs Temperature 98.1 F 01/13/19 10:00 Pulse Rate 73 01/13/19 10:00 Respiratory Rate 18 01/13/19 10:00 Blood Pressure 157/83 01/13/19 10:00 O2 Sat by Pulse Oximetry (%) 99 01/13/19 09:00 Musculoskeletal: Yes: Other (General: calm F sitting in bed NAD, AAO x3 N/M: B shoulder flexion to 120 degrees, 4+/5 BUE, 4/5 B HF then 4+/5 BLE; Pinprick Intact BUE/ BLE Extremities: no BLE pitting edema with TEDs in place, no B calf tenderness) Labs: CBC, BMP 01/13/19 09:22 01/13/19 09:22 Assessment/Plan Impression: 1) Deficits mobility/ ADLs 2) Deconditioning 3) Gait abnormality 4) Hypothermia, resolved 5) Hypoglycemia with hx DMT2 6) Bradycardia, resolved, with hx CHF, HTN, HLD 7) KACI on CKD with hx diabetic nephropathy 8) hx GERD 9) hx IBS with gastroparesis 10) Chronic constipation 11) Anemia 12) Overweight 13) Up to date pneumovax, no documented flu shot Recommendations: 1) PT for stretching strengthening ROM and functional mobility 2) Falls, safety precautions 3) Cardiac, diabetic precautions 4) DVT ppx: on hep sc BID 5) Bowel regimen prn 6) Monitor BMP given renal function 7) Monitor CBC given anemia 8) Nutrition consult for overweight 9) Continue plan per primary team 10) Discharge planning: she would benefit from further inpatient rehabilitation once medically stable Thank you for this referral.
[2019-01-13 15:14] LABS: ARTERIAL BLD GAS O2 SATURATION 96.7 % (95-98); ARTERIAL BLOOD GAS BASE EXCESS -5.4 meq/l (-2-2); ARTERIAL BLOOD GAS PCO2 35.2 mmHg (35-45); ARTERIAL BLOOD GAS PO2 90.3 mmHg (80-100); ARTERIAL BLOOD GAS pH 7.35 (7.35-7.45)
[2019-01-13 15:17] LABS: ALLENS TEST POSITIVE
[2019-01-13] MEDS: ROSUVASTATIN CA 10 MG TABLET (FP) PO SCH (21:42)
--- NOTE | 2019-01-13 22:55 | PN ---
Progress Note, Physician Chief Complaint: feels weak nauseas - Current Medication List Current Medications: Active Medications Amlodipine Besylate (Norvasc -) 10 mg PO DAILY@0600 [facility] Last Admin: 01/13/19 06:37 Dose: 10 mg Carvedilol (Coreg -) 3.125 mg PO BID [facility] Last Admin: 01/13/19 21:42 Dose: 3.125 mg Docusate Sodium (Colace -) 300 mg PO DAILY [facility] Last Admin: 01/13/19 09:23 Dose: 300 mg Ferrous Sulfate (Feosol -) 325 mg PO DAILY [facility] Last Admin: 01/13/19 09:24 Dose: 325 mg Furosemide (Lasix -) 40 mg PO DAILY [facility] Last Admin: 01/13/19 09:24 Dose: 40 mg Heparin Sodium (Porcine) (Heparin -) 5,000 unit SQ BID [facility] Last Admin: 01/13/19 21:42 Dose: 5,000 unit Hydralazine HCl (Apresoline -) 50 mg PO BID [facility] Last Admin: 01/13/19 21:42 Dose: 50 mg Insulin Aspart (Novolog Vial Sliding Scale -) 1 vial SQ [facility]; Protocol Last Admin: 01/13/19 21:43 Dose: Not Given Insulin Detemir (Levemir Vial) 10 units SQ AM [facility] Last Admin: 01/13/19 08:27 Dose: Not Given Isosorbide Mononitrate (Imdur -) 30 mg PO DAILY [facility] Last Admin: 01/13/19 09:24 Dose: 30 mg Pantoprazole Sodium (Protonix -) 40 mg PO BID [facility] Last Admin: 01/13/19 21:42 Dose: 40 mg Rosuvastatin Calcium (Crestor -) 10 mg PO HS [facility] Last Admin: 01/13/19 21:42 Dose: 10 mg Valsartan (Diovan -) 160 mg PO DAILY [facility] Last Admin: 01/13/19 12:07 Dose: 160 mg - Objective Vital Signs: Vital Signs Temperature 97.7 F 01/13/19 18:40 Pulse Rate 60 01/13/19 18:00 Respiratory Rate 18 01/13/19 18:00 Blood Pressure 140/72 01/13/19 18:00 O2 Sat by Pulse Oximetry (%) 99 01/13/19 09:00 Constitutional: Yes: Calm Eyes: Yes: EOM Intact HENT: Yes: Normocephalic Neck: Yes: Trachea Midline Cardiovascular: Yes: Regular Rate and Rhythm Respiratory: Yes: CTA Bilaterally Gastrointestinal: Yes: Normal Bowel Sounds ...Rectal Exam: Yes: Deferred Musculoskeletal: Yes: WNL Extremities: Yes: WNL Neurological: Yes: Alert, Oriented Labs: CBC, BMP 01/13/19 09:22 01/13/19 09:22 INR, PTT INR 1.00 (0.83-1.09) 01/09/19 08:08 Problem List - Problems (1) CKD (chronic kidney disease) Code(s): N18.9 - CHRONIC KIDNEY DISEASE, UNSPECIFIED (2) Hypoglycemia Code(s): E16.2 - HYPOGLYCEMIA, UNSPECIFIED (3) Hypothermia Code(s): T68.XXXA - HYPOTHERMIA, INITIAL ENCOUNTER (4) KACI (acute kidney injury) Code(s): N17.9 - ACUTE KIDNEY FAILURE, UNSPECIFIED (5) Abdominal pain Code(s): R10.9 - UNSPECIFIED ABDOMINAL PAIN Qualifiers: Abdominal location: right lower quadrant Qualified Code(s): R10.31 - Right lower quadrant pain (6) Acute heart failure Code(s): I50.9 - HEART FAILURE, UNSPECIFIED Qualifiers: Heart failure type: unspecified Qualified Code(s): I50.9 - Heart failure, unspecified (7) Acute on chronic congestive heart failure Code(s): I50.9 - HEART FAILURE, UNSPECIFIED Qualifiers: Heart failure type: systolic Qualified Code(s): I50.23 - Acute on chronic systolic (congestive) heart failure (8) Diabetes mellitus with nonketotic hyperosmolarity Problems reviewed: Yes Code(s): E11.00 - TYPE 2 DIAB W HYPROSM W/O NONKET HYPRGLY-HYPROS COMA ([facility]) Assessment/Plan Current Active Problems dm t2,hyperglycemia CKD (chronic kidney disease) (Acute) Hypoglycemia (Acute) Hypothermia (Acute) Abnormal Lab Results 01/13/19 01/13/19 01/13/19 09:22 09:22 14:50 Hgb 10.0 L Hct 30.8 L RDW 18.3 H Eosinophils % 5.4 H D ABG HCO3 19.1 L ABG Base Excess -5.4 L Chloride 108 H Carbon Dioxide 20 L BUN 70.5 H Creatinine 2.8 H Random Glucose 159 H Calcium 8.4 L Creatine Kinase Index 6.6 H CK-MB (CK-2) 11.0 H Albumin 2.6 L Laboratory Results - last 24 hr 01/13/19 01/13/19 01/13/19 03:57 05:54 09:22 WBC 4.6 RBC 3.81 Hgb 10.0 L Hct 30.8 L MCV 80.9 MCH 26.3 MCHC 32.5 RDW 18.3 H Plt Count 193 MPV 7.6 Absolute Neuts (auto) 3.4 Neutrophils % 74.3 Lymphocytes % 12.0 Monocytes % 6.8 D Eosinophils % 5.4 H D Basophils % 1.5 Nucleated RBC % 0 Anticoagulation Therapy Puncture Site ABG pH ABG pCO2 at Pt Temp ABG pO2 at Pt Temp ABG HCO3 ABG O2 Sat (Measured) ABG O2 Content ABG Base Excess Jose Test O2 Delivery Device Oxygen Flow Rate Vent Mode Vent Rate Mechanical Rate Pressure Support Vent Sodium Potassium Chloride Carbon Dioxide Anion Gap BUN Creatinine Est GFR (CKD-EPI)AfAm Est GFR (CKD-EPI)NonAf POC Glucometer 99 110 Random Glucose Lactic Acid Calcium Total Bilirubin AST ALT Alkaline Phosphatase Creatine Kinase Creatine Kinase Index CK-MB (CK-2) Troponin I Total Protein Albumin 01/13/19 01/13/19 01/13/19 09:22 10:58 14:21 WBC RBC Hgb Hct MCV MCH MCHC RDW Plt Count MPV Absolute Neuts (auto) Neutrophils % Lymphocytes % Monocytes % Eosinophils % Basophils % Nucleated RBC % Anticoagulation Therapy Puncture Site ABG pH ABG pCO2 at Pt Temp ABG pO2 at Pt Temp ABG HCO3 ABG O2 Sat (Measured) ABG O2 Content ABG Base Excess Jose Test O2 Delivery Device Oxygen Flow Rate Vent Mode Vent Rate Mechanical Rate Pressure Support Vent Sodium 136 Potassium 4.4 Chloride 108 H Carbon Dioxide 20 L Anion Gap 9 BUN 70.5 H Creatinine 2.8 H Est GFR (CKD-EPI)AfAm 20.14 Est GFR (CKD-EPI)NonAf 17.38 POC Glucometer 163 Random Glucose 159 H Lactic Acid 0.5 Calcium 8.4 L Total Bilirubin 0.2 AST 17 ALT 18 Alkaline Phosphatase 85 Creatine Kinase 166 Creatine Kinase Index 6.6 H CK-MB (CK-2) 11.0 H Troponin I 0.03 Total Protein 6.5 Albumin 2.6 L 01/13/19 01/13/19 01/13/19 14:50 16:33 21:41 WBC RBC Hgb Hct MCV MCH MCHC RDW Plt Count MPV Absolute Neuts (auto) Neutrophils % Lymphocytes % Monocytes % Eosinophils % Basophils % Nucleated RBC % Anticoagulation Therapy No Result Required. Puncture Site Left radial ABG pH 7.35 ABG pCO2 at Pt Temp 35.2 ABG pO2 at Pt Temp 90.3 ABG HCO3 19.1 L ABG O2 Sat (Measured) 96.7 ABG O2 Content 12.7 ABG Base Excess -5.4 L Jose Test Positive O2 Delivery Device No Result Required. Oxygen Flow Rate Roomair Vent Mode No Result Required. Vent Rate No Result Required. Mechanical Rate No Result Required. Pressure Support Vent No Result Required. Sodium Potassium Chloride Carbon Dioxide Anion Gap BUN Creatinine Est GFR (CKD-EPI)AfAm Est GFR (CKD-EPI)NonAf POC Glucometer 131 127 Random Glucose Lactic Acid Calcium Total Bilirubin AST ALT Alkaline Phosphatase Creatine Kinase Creatine Kinase Index CK-MB (CK-2) Troponin I Total Protein Albumin plan: bgm qidnovolog scale Current Medications Generic Name Dose Route Start Last Admin Trade Name Freq PRN Reason Stop Dose Admin Amlodipine Besylate 10 mg 01/10/19 06:00 01/13/19 06:37 Norvasc - PO 10 mg DAILY@0600 [facility] Administration Carvedilol 3.125 mg 01/12/19 10:00 01/13/19 21:42 Coreg - PO 3.125 mg BID [facility] Administration Docusate Sodium 300 mg 01/11/19 10:00 01/13/19 09:23 Colace - PO 300 mg DAILY [facility] Administration Ferrous Sulfate 325 mg 01/11/19 10:00 01/13/19 09:24 Feosol - PO 325 mg DAILY [facility] Administration Furosemide 40 mg 01/12/19 11:45 01/13/19 09:24 Lasix - PO 40 mg DAILY [facility] Administration Heparin Sodium (Porcine) 5,000 unit 01/09/19 22:00 01/13/19 21:42 Heparin - SQ 5,000 unit BID [facility] Administration Hydralazine HCl 50 mg 01/11/19 10:00 01/13/19 21:42 Apresoline - PO 50 mg BID [facility] Administration Insulin Aspart 1 vial 01/12/19 07:00 01/13/19 21:43 Novolog Vial Sliding Scale - SQ Not Given ACHS [facility] Protocol Insulin Detemir 10 units 01/12/19 07:00 01/13/19 08:27 Levemir Vial SQ Not Given AM [facility] Isosorbide Mononitrate 30 mg 01/11/19 10:00 01/13/19 09:24 Imdur - PO 30 mg DAILY [facility] Administration Pantoprazole Sodium 40 mg 01/11/19 10:00 01/13/19 21:42 Protonix - PO 40 mg BID [facility] Administration Rosuvastatin Calcium 10 mg 01/09/19 22:00 01/13/19 21:42 Crestor - PO 10 mg HS [facility] Administration Valsartan 160 mg 01/13/19 11:45 01/13/19 12:07 Diovan - PO 160 mg DAILY [facility] Administration
[2019-01-14] MEDS: amLODIPine BESYLATE 10 MG TABLET (FP) PO SCH (06:39)
[2019-01-14] MEDS: INSULIN (LEVEMIR) 100 UNITS/ML UNITS SQ SCH (06:40)
[2019-01-14] MEDS: INSULIN SLIDING SCALE (NOVOLOG) 1 VIAL SQ SCH ×4 (06:40→22:12)
[2019-01-14 06:58] LABS: EOS % 5.5 % (0-4.5); HEMATOCRIT 28.2 % (32.4-45.2); HEMOGLOBIN 9.5 GM/dL (10.7-15.3); LYMPH % 17.8 % (8-40); MCHC 33.6 g/dl (32.0-36.0); MEAN CELL VOLUME 80.2 fl (80-96); MEAN PLT VOLUME 7.7 fl (7.5-11.1); MONO % 8.1 % (3.8-10.2); NEUT % 66.6 % (42.8-82.8); PLATELET COUNT 195 K/MM3 (134-434); RBC 3.51 M/mm3 (3.60-5.2); RDW 18.3 % (11.6-15.6); WHITE BLOOD COUNT 4.5 K/mm3 (4.0-10.0)
--- NOTE | 2019-01-14 07:37 | PN ---
Progress Note, Physician - Current Medication List Current Medications: Active Medications Amlodipine Besylate (Norvasc -) 10 mg PO DAILY@0600 [facility] Last Admin: 01/14/19 06:39 Dose: 10 mg Carvedilol (Coreg -) 3.125 mg PO BID [facility] Last Admin: 01/13/19 21:42 Dose: 3.125 mg Docusate Sodium (Colace -) 300 mg PO DAILY [facility] Last Admin: 01/13/19 09:23 Dose: 300 mg Ferrous Sulfate (Feosol -) 325 mg PO DAILY [facility] Last Admin: 01/13/19 09:24 Dose: 325 mg Furosemide (Lasix -) 40 mg PO DAILY [facility] Last Admin: 01/13/19 09:24 Dose: 40 mg Heparin Sodium (Porcine) (Heparin -) 5,000 unit SQ BID [facility] Last Admin: 01/13/19 21:42 Dose: 5,000 unit Hydralazine HCl (Apresoline -) 50 mg PO BID [facility] Last Admin: 01/13/19 21:42 Dose: 50 mg Insulin Aspart (Novolog Vial Sliding Scale -) 1 vial SQ [facility]; Protocol Last Admin: 01/14/19 06:40 Dose: Not Given Insulin Detemir (Levemir Vial) 10 units SQ AM [facility] Last Admin: 01/14/19 06:40 Dose: Not Given Isosorbide Mononitrate (Imdur -) 30 mg PO DAILY [facility] Last Admin: 01/13/19 09:24 Dose: 30 mg Pantoprazole Sodium (Protonix -) 40 mg PO BID [facility] Last Admin: 01/13/19 21:42 Dose: 40 mg Rosuvastatin Calcium (Crestor -) 10 mg PO HS [facility] Last Admin: 01/13/19 21:42 Dose: 10 mg Valsartan (Diovan -) 160 mg PO DAILY [facility] Last Admin: 01/13/19 12:07 Dose: 160 mg - Objective Vital Signs: Vital Signs Temperature 97.7 F 01/14/19 05:26 Pulse Rate 78 01/14/19 05:26 Respiratory Rate 18 01/14/19 05:26 Blood Pressure 146/98 01/14/19 05:26 O2 Sat by Pulse Oximetry (%) 98 01/13/19 21:00 Cardiovascular: Yes: S1, S2 Respiratory: Yes: Regular, CTA Bilaterally Gastrointestinal: Yes: Normal Bowel Sounds, Soft. No: Tenderness Labs: CBC, BMP 01/14/19 06:40 INR, PTT INR 1.00 (0.83-1.09) 01/09/19 08:08 Assessment/Plan - Problems (1) CKD (chronic kidney disease) Assessment/Plan: -BUN/Cr High--Hold diuretics -renal on board -monitor renal function Code(s): N18.9 - CHRONIC KIDNEY DISEASE, UNSPECIFIED (2) Hypoglycemia-Diabetes Assessment/Plan: -Endocrinology consult noted on [facility] -HgA1c 6.5% Code(s): E16.2 - HYPOGLYCEMIA, UNSPECIFIED (3) Hypothermia Assessment/Plan: -resolved --yesterday 01/13--94----01/14--97--id follow up Microbiology 01/09/19 06:50 Blood - Peripheral Venous Blood Culture - Preliminary NO GROWTH OBTAINED AFTER 72 HOURS, INCUBATION TO CONTINUE FOR 2 DAYS. 01/09/19 06:50 Blood - Peripheral Venous Blood Culture - Preliminary NO GROWTH OBTAINED AFTER 72 HOURS, INCUBATION TO CONTINUE FOR 2 DAYS. 01/09/19 09:36 Urine - Urine - Catheterized Urine Culture - Final NO GROWTH OBTAINED Code(s): T68.XXXA - HYPOTHERMIA, INITIAL ENCOUNTER (4) Anemia Assessment/Plan: -Hg 9.7 -monitor H/H -Ferrous Sulfate -Low Fe in iron panel Code(s): D64.9 - ANEMIA, UNSPECIFIED Qualifiers: Anemia type: iron deficiency (5) CHF (congestive heart failure) Assessment/Plan: -daily weights -fluid restriction -strict I&Os -Furosemide as needed due to elevated renal function Code(s): I50.9 - HEART FAILURE, UNSPECIFIED Qualifiers: Heart failure type: diastolic (6) Bradycardia Assessment/Plan: -Resolved -Off B-Blockers (7) HTN (hypertension) Assessment/Plan: -Hydralazine, Imdur, Amlodipine -low Na diet Code(s): I10 - ESSENTIAL (PRIMARY) HYPERTENSION Repeat labs and ekg if stable plan for dc
[2019-01-14 07:52] LABS: ALBUMIN 2.7 g/dl (3.4-5.0); BILIRUBIN,TOTAL 0.2 mg/dL (0.2-1); BLOOD UREA NITROGEN 74.9 mg/dL (7-18); CALCIUM 8.7 mg/dL (8.5-10.1); CREATININE 2.9 mg/dL (0.55-1.3); POTASSIUM 4.5 mmol/L (3.5-5.1); TOT PROT 6.3 g/dl (6.4-8.2)
[2019-01-14] MEDS: HEPARIN NA (PORCINE) 5,000 UNITS/ML 1ML VIAL SQ SCH ×2 (09:01→22:12)
[2019-01-14] MEDS: FUROSEMIDE 40 MG TABLET (FP) PO SCH (09:01)
[2019-01-14] MEDS: ISOSORBIDE MONONITRATE 30 MG TAB.SR.24H (FP) PO SCH (09:01)
[2019-01-14] MEDS: PANTOPRAZOLE 40 MG TABLET (FP) PO SCH ×2 (09:01→22:12)
[2019-01-14] MEDS: FERROUS SO4 325 MG TABLET (FP) PO SCH (09:01)
[2019-01-14] MEDS: CARVEDILOL 3.125 MG TABLET (FP) PO SCH ×2 (09:01→22:12)
[2019-01-14] MEDS: DOCUSATE SODIUM 100 MG CAPSULE (FP) PO SCH (09:02)
[2019-01-14] MEDS: VALSARTAN 160 MG TABLET (UD) PO SCH (09:02)
[2019-01-14] MEDS: hydrALAZINE HCL 25 MG TABLET (FP) PO SCH ×2 (09:02→22:12)
--- NOTE | 2019-01-14 11:12 | PN ---
Progress Note, Physician History of Present Illness: Pt seen and examined at bedside. She is awake and alert. She denies shortness of breath. - Current Medication List Current Medications: Active Medications Amlodipine Besylate (Norvasc -) 10 mg PO DAILY@0600 [facility] Last Admin: 01/14/19 06:39 Dose: 10 mg Carvedilol (Coreg -) 3.125 mg PO BID [facility] Last Admin: 01/14/19 09:01 Dose: 3.125 mg Docusate Sodium (Colace -) 300 mg PO DAILY [facility] Last Admin: 01/14/19 09:02 Dose: Not Given Ferrous Sulfate (Feosol -) 325 mg PO DAILY [facility] Last Admin: 01/14/19 09:01 Dose: 325 mg Furosemide (Lasix -) 40 mg PO DAILY [facility] Last Admin: 01/14/19 09:01 Dose: 40 mg Heparin Sodium (Porcine) (Heparin -) 5,000 unit SQ BID [facility] Last Admin: 01/14/19 09:01 Dose: 5,000 unit Hydralazine HCl (Apresoline -) 50 mg PO BID [facility] Last Admin: 01/14/19 09:02 Dose: 50 mg Insulin Aspart (Novolog Vial Sliding Scale -) 1 vial SQ ACHS [facility]; Protocol Last Admin: 01/14/19 06:40 Dose: Not Given Insulin Detemir (Levemir Vial) 10 units SQ AM [facility] Last Admin: 01/14/19 06:40 Dose: Not Given Isosorbide Mononitrate (Imdur -) 30 mg PO DAILY [facility] Last Admin: 01/14/19 09:01 Dose: 30 mg Pantoprazole Sodium (Protonix -) 40 mg PO BID [facility] Last Admin: 01/14/19 09:01 Dose: 40 mg Rosuvastatin Calcium (Crestor -) 10 mg PO HS [facility] Last Admin: 01/13/19 21:42 Dose: 10 mg Valsartan (Diovan -) 160 mg PO DAILY [facility] Last Admin: 01/14/19 09:02 Dose: 160 mg - Objective Vital Signs: Vital Signs Temperature 97.4 F L 01/14/19 08:11 Pulse Rate 58 L 01/14/19 08:11 Respiratory Rate 18 01/14/19 08:11 Blood Pressure 160/70 01/14/19 08:11 O2 Sat by Pulse Oximetry (%) 98 01/13/19 21:00 Constitutional: Yes: Calm Eyes: Yes: Conjunctiva Clear HENT: Yes: Atraumatic Neck: Yes: Supple Cardiovascular: Yes: S1, S2 Respiratory: Yes: CTA Bilaterally Gastrointestinal: Yes: Normal Bowel Sounds, Soft Genitourinary: Yes: WNL Musculoskeletal: Yes: WNL Edema: LLE: Trace, RLE: Trace Neurological: Yes: Oriented Psychiatric: Yes: Oriented Labs: CBC, BMP 01/14/19 06:40 01/14/19 06:40 INR, PTT INR 1.00 (0.83-1.09) 01/09/19 08:08 Problem List - Problems (1) CKD (chronic kidney disease) Code(s): N18.9 - CHRONIC KIDNEY DISEASE, UNSPECIFIED (2) Hypoglycemia Code(s): E16.2 - HYPOGLYCEMIA, UNSPECIFIED (3) KACI (acute kidney injury) Code(s): N17.9 - ACUTE KIDNEY FAILURE, UNSPECIFIED (4) CHF (congestive heart failure) Code(s): I50.9 - HEART FAILURE, UNSPECIFIED Qualifiers: Heart failure type: diastolic Assessment/Plan Current Medications Generic Name Dose Route Start Last Admin Trade Name Freq PRN Reason Stop Dose Admin Amlodipine Besylate 10 mg 01/10/19 06:00 01/14/19 06:39 Norvasc - PO 10 mg DAILY@0600 [facility] Administration Carvedilol 3.125 mg 01/12/19 10:00 01/14/19 09:01 Coreg - PO 3.125 mg BID [facility] Administration Docusate Sodium 300 mg 01/11/19 10:00 01/14/19 09:02 Colace - PO Not Given DAILY [facility]US[facility] Ferrous Sulfate 325 mg 01/11/19 10:00 01/14/19 09:01 Feosol - PO 325 mg DAILY [facility] Administration Furosemide 40 mg 01/12/19 11:45 01/14/19 09:01 Lasix - PO 40 mg DAILY [facility] Administration Heparin Sodium (Porcine) 5,000 unit 01/09/19 22:00 01/14/19 09:01 Heparin - SQ 5,000 unit BID [facility] Administration Hydralazine HCl 50 mg 01/11/19 10:00 01/14/19 09:02 Apresoline - PO 50 mg BID [facility] Administration Insulin Aspart 1 vial 01/12/19 07:00 01/14/19 06:40 Novolog Vial Sliding Scale - SQ Not Given ACHS [facility] Protocol Insulin Detemir 10 units 01/12/19 07:00 01/14/19 06:40 Levemir Vial SQ Not Given AM [facility] Isosorbide Mononitrate 30 mg 01/11/19 10:00 01/14/19 09:01 Imdur - PO 30 mg DAILY [facility] Administration Pantoprazole Sodium 40 mg 01/11/19 10:00 01/14/19 09:01 Protonix - PO 40 mg BID [facility] Administration Rosuvastatin Calcium 10 mg 01/09/19 22:00 01/13/19 21:42 Crestor - PO 10 mg HS [facility] Administration Valsartan 160 mg 01/13/19 11:45 01/14/19 09:02 Diovan - PO 160 mg DAILY [facility] Administration Impression 1. KACI 2. anemia 3. proteinuria 4. pleural effusions 5. htn 6. dm 7. CHF 8. CKD Plan - cont diovan - monitor bp - cont po lasix - cont p/t - low potassium diet - avoid nsaids
--- NOTE | 2019-01-14 12:51 | DS ---
Physical Examination Vital Signs: Vital Signs Temperature 97.4 F L 01/14/19 08:11 Pulse Rate 58 L 01/14/19 08:11 Respiratory Rate 18 01/14/19 08:11 Blood Pressure 160/70 01/14/19 08:11 O2 Sat by Pulse Oximetry (%) 98 01/13/19 21:00 Labs: CBC, BMP 01/14/19 06:40 01/14/19 06:40 Discharge Summary Reason For Visit: CONGESTIVE HEART FAILURE Current Active Problems CKD (chronic kidney disease) (Acute) Diabetes mellitus with nonketotic hyperosmolarity (Acute) Hypoglycemia (Acute) Hypothermia (Acute) - Instructions Referrals: Denise Boyer MD [Primary Care Provider] - Disposition: [facility] - Home Medications Comprehensive Discharge Medication List: Ambulatory Orders Acetaminophen 650 mg PO QID PRN 01/09/19 Amlodipine Besylate 10 mg PO DAILY 01/09/19 Ammonium Lactate Cream [Lac-Hydrin 12% Cream -] 1 applic TP DAILY 01/09/19 Docusate Sodium [Colace] 300 mg PO DAILY 01/09/19 Ferrous Sulfate 325 mg PO DAILY 01/09/19 Furosemide [Lasix -] 40 mg PO BID 01/09/19 Hydrocortisone 1% Ointment [Hytone 1% Ointment -] 1 applic TP DAILY 01/09/19 Isosorbide Mononitrate [Isosorbide Mononitrate ER] 30 mg PO DAILY 01/09/19 Multivitamin [One-Daily Multi-Vitamin] 1 each PO DAILY 01/09/19 Pantoprazole Sodium 40 mg PO BID 01/09/19 Rosuvastatin Calcium [Crestor] 10 mg PO HS 01/09/19 Sennosides [Senna] 2 tab PO HS 01/09/19 Sodium Chloride Nasal Hunt [[place] Nasal Hunt -] 2 spray NS BID PRN 01/09 Valsartan 320 mg PO DAILY 01/09/19 Carvedilol [Coreg -] 3.125 mg PO BID tablet 01/14/19 Heparin - 5,000 unit SQ BID vial 01/14/19 Insulin (Levemir) [Levemir Vial] 10 units SQ AM units 01/14/19 Insulin Sliding Scale [Novolog Vial Sliding Scale -] 1 vial SQ ACHS units 01/14
[2019-01-14] MEDS: ROSUVASTATIN CA 10 MG TABLET (FP) PO SCH (22:12)
--- NOTE | 2019-01-14 23:57 | PN ---
Progress Note (short form) - Note Progress Note: ID CONSULT DICTATED OBSERVE OFF ANTIBIOTICS
[2019-01-15] MEDS: amLODIPine BESYLATE 10 MG TABLET (FP) PO SCH (05:43)
[2019-01-15] MEDS: INSULIN (LEVEMIR) 100 UNITS/ML UNITS SQ SCH (06:47)
[2019-01-15] MEDS: INSULIN SLIDING SCALE (NOVOLOG) 1 VIAL SQ SCH ×2 (06:48→11:24)
[2019-01-15] MEDS: VALSARTAN 160 MG TABLET (UD) PO SCH (09:49)
[2019-01-15] MEDS: ISOSORBIDE MONONITRATE 30 MG TAB.SR.24H (FP) PO SCH (09:49)
[2019-01-15] MEDS: CARVEDILOL 3.125 MG TABLET (FP) PO SCH (09:49)
[2019-01-15] MEDS: FERROUS SO4 325 MG TABLET (FP) PO SCH (09:49)
[2019-01-15] MEDS: hydrALAZINE HCL 25 MG TABLET (FP) PO SCH (09:49)
[2019-01-15] MEDS: FUROSEMIDE 40 MG TABLET (FP) PO SCH (09:49)
[2019-01-15] MEDS: HEPARIN NA (PORCINE) 5,000 UNITS/ML 1ML VIAL SQ SCH (09:49)
[2019-01-15] MEDS: DOCUSATE SODIUM 100 MG CAPSULE (FP) PO SCH (09:49)
[2019-01-15] MEDS: PANTOPRAZOLE 40 MG TABLET (FP) PO SCH (09:49)
[2019-01-15 09:54] VITALS: PULSE 74
--- NOTE | 2019-01-15 11:41 | CONS ---
INFECTIOUS DISEASE CONSULTATION DATE OF CONSULTATION: DATE OF DICTATION: 01/15/2019 The patient is a 63-year-old female who is evaluated for possible urinary tract infection. She was admitted to the hospital on January 09, 2019, from the longterm with reports of increased lethargy and altered mentation. She was found to have a blood sugar of 40. Her course was complicated by hypothermia and bradycardia. She was admitted to the hospital. Initial workup was significant for elevated blood sugar. The patient has had a history of diabetic foot infections in the past as well as urinary tract infections. At the present time, she is comfortable. She denies any urinary tract complaints. No dysuria or hematuria. No suprapubic or flank tenderness. PAST MEDICAL HISTORY: Positive for hypertension, congestive heart failure, hyperlipidemia, diabetes mellitus, gastroesophageal reflux. ALLERGIES: No known allergies. MEDICATIONS: Amlodipine, Coreg, Colace, Lasix, hydralazine, insulin, Protonix, Diovan. SOCIAL HISTORY: She resides in a long-term facility. She is a nonsmoker, nondrinker. SYSTEMS REVIEW: Neurologic: No loss of consciousness, seizure activity, focal weakness. Cardiac: Negative chest pain or palpitations. Respiratory: Negative cough or sputum production. Gastrointestinal: Negative vomiting or diarrhea. Genitourinary: Negative for urinary tract infection. LABORATORY DATA: White count 4.5, hematocrit 28.2, platelets 195. Urinalysis: White cells 1. Chest x-ray negative for acute infiltrate. PHYSICAL EXAMINATION: General: She is awake and alert. She is not acutely toxic appearing. Vital Signs: Temperature 97.7; blood pressure 150/71; pulse 69, regular; respirations 18 per minute. HEENT: Sclerae are anicteric. Heart: Sounds S1, S2. Lungs: Clear. Abdomen: Soft. No suprapubic or flank tenderness. Extremities: Edema 1+. IMPRESSION: 1. Hypoglycemia, hypothermia; possible sepsis. 2. History of urinary tract infections. 3. Recent hospital admission for congestive heart failure. At the present time, patient appears comfortable, afebrile, with a normal white blood cell count. Cultures are negative. Would observe off antibiotic therapy. Thank you for the kind referral. JUNE FAJARDO M.D. [id number]
--- NOTE | 2019-01-15 12:32 | PN ---
Progress Note, Physician History of Present Illness: Pt seen and examined at bedside. She is awake and alert. She denies shortness of breath. - Current Medication List Current Medications: Active Medications Amlodipine Besylate (Norvasc -) 10 mg PO DAILY@0600 [facility] Last Admin: 01/15/19 05:43 Dose: 10 mg Carvedilol (Coreg -) 3.125 mg PO BID [facility] Last Admin: 01/15/19 09:49 Dose: 3.125 mg Docusate Sodium (Colace -) 300 mg PO DAILY [facility] Last Admin: 01/15/19 09:49 Dose: Not Given Ferrous Sulfate (Feosol -) 325 mg PO DAILY [facility] Last Admin: 01/15/19 09:49 Dose: 325 mg Furosemide (Lasix -) 40 mg PO DAILY [facility] Last Admin: 01/15/19 09:49 Dose: 40 mg Heparin Sodium (Porcine) (Heparin -) 5,000 unit SQ BID [facility] Last Admin: 01/15/19 09:49 Dose: 5,000 unit Hydralazine HCl (Apresoline -) 50 mg PO BID [facility] Last Admin: 01/15/19 09:49 Dose: 50 mg Insulin Aspart (Novolog Vial Sliding Scale -) 1 vial SQ ACHS [facility]; Protocol Last Admin: 01/15/19 11:24 Dose: Not Given Insulin Detemir (Levemir Vial) 10 units SQ AM [facility] Last Admin: 01/15/19 06:47 Dose: Not Given Isosorbide Mononitrate (Imdur -) 30 mg PO DAILY [facility] Last Admin: 01/15/19 09:49 Dose: 30 mg Pantoprazole Sodium (Protonix -) 40 mg PO BID [facility] Last Admin: 01/15/19 09:49 Dose: 40 mg Rosuvastatin Calcium (Crestor -) 10 mg PO HS [facility] Last Admin: 01/14/19 22:12 Dose: 10 mg Valsartan (Diovan -) 160 mg PO DAILY [facility] Last Admin: 01/15/19 09:49 Dose: 160 mg - Objective Vital Signs: Vital Signs Temperature 97.8 F 01/15/19 09:53 Pulse Rate 74 01/15/19 09:53 Respiratory Rate 18 01/15/19 09:53 Blood Pressure 157/74 01/15/19 09:53 O2 Sat by Pulse Oximetry (%) 98 01/15/19 08:55 Constitutional: Yes: Calm Eyes: Yes: Conjunctiva Clear HENT: Yes: Atraumatic Neck: Yes: Supple Cardiovascular: Yes: S1, S2 Respiratory: Yes: CTA Bilaterally Genitourinary: Yes: WNL Musculoskeletal: Yes: WNL Edema: No Integumentary: Yes: WNL Neurological: Yes: Oriented Psychiatric: Yes: Oriented Labs: CBC, BMP 01/14/19 06:40 01/14/19 06:40 INR, PTT INR 1.00 (0.83-1.09) 01/09/19 08:08 Problem List - Problems (1) CKD (chronic kidney disease) Code(s): N18.9 - CHRONIC KIDNEY DISEASE, UNSPECIFIED (2) Hypoglycemia Code(s): E16.2 - HYPOGLYCEMIA, UNSPECIFIED (3) KACI (acute kidney injury) Code(s): N17.9 - ACUTE KIDNEY FAILURE, UNSPECIFIED (4) CHF (congestive heart failure) Code(s): I50.9 - HEART FAILURE, UNSPECIFIED Qualifiers: Heart failure type: diastolic Assessment/Plan Current Medications Generic Name Dose Route Start Last Admin Trade Name Obinna PRN Reason Stop Dose Admin Amlodipine Besylate 10 mg 01/10/19 06:00 01/15/19 05:43 Norvasc - PO 10 mg DAILY@0600 SUSAN Administration Carvedilol 3.125 mg 01/12/19 10:00 01/15/19 09:49 Coreg - PO 3.125 mg BID SUSAN Administration Docusate Sodium 300 mg 01/11/19 10:00 01/15/19 09:49 Colace - PO Not Given DAILY SUSAN Ferrous Sulfate 325 mg 01/11/19 10:00 01/15/19 09:49 Feosol - PO 325 mg DAILY SUSAN Administration Furosemide 40 mg 01/12/19 11:45 01/15/19 09:49 Lasix - PO 40 mg DAILY SUSAN Administration Heparin Sodium (Porcine) 5,000 unit 01/09/19 22:00 01/15/19 09:49 Heparin - SQ 5,000 unit BID SUSAN Administration Hydralazine HCl 50 mg 01/11/19 10:00 01/15/19 09:49 Apresoline - PO 50 mg BID SUSAN Administration Insulin Aspart 1 vial 01/12/19 07:00 01/15/19 11:24 Novolog Vial Sliding Scale - SQ Not Given ACHS SUSAN Protocol Insulin Detemir 10 units 01/12/19 07:00 01/15/19 06:47 Levemir Vial SQ Not Given AM [facility] Isosorbide Mononitrate 30 mg 01/11/19 10:00 01/15/19 09:49 Imdur - PO 30 mg DAILY SUSAN Administration Pantoprazole Sodium 40 mg 01/11/19 10:00 01/15/19 09:49 Protonix - PO 40 mg BID [facility] Administration Rosuvastatin Calcium 10 mg 01/09/19 22:00 01/14/19 22:12 Crestor - PO 10 mg HS [facility] Administration Valsartan 160 mg 01/13/19 11:45 01/15/19 09:49 Diovan - PO 160 mg DAILY [facility] Administration Impression 1. KACI 2. anemia 3. proteinuria 4. pleural effusions 5. htn 6. dm 7. CHF 8. CKD Plan - cont with diovan - will see in office - cont with lasix - volume status stable - cont p/t - low potassium diet - avoid nsaids
[2019-01-15] MEDS ORDERED: VALSARTAN 160 MG TABLET (UD) PO SCH (13:15)
[2019-01-15 14:40] VITALS: BP 144/71; TEMP 97.6
--- NOTE | 2019-01-15 15:18 | PN ---
Progress Note, Physician Chief Complaint: patient seen and examined awake alert going home today - Current Medication List Current Medications: Active Medications Amlodipine Besylate (Norvasc -) 10 mg PO DAILY@0600 [facility] Last Admin: 01/15/19 05:43 Dose: 10 mg Carvedilol (Coreg -) 3.125 mg PO BID [facility] Last Admin: 01/15/19 09:49 Dose: 3.125 mg Docusate Sodium (Colace -) 300 mg PO DAILY [facility] Last Admin: 01/15/19 09:49 Dose: Not Given Ferrous Sulfate (Feosol -) 325 mg PO DAILY [facility] Last Admin: 01/15/19 09:49 Dose: 325 mg Furosemide (Lasix -) 40 mg PO DAILY [facility] Last Admin: 01/15/19 09:49 Dose: 40 mg Heparin Sodium (Porcine) (Heparin -) 5,000 unit SQ BID [facility] Last Admin: 01/15/19 09:49 Dose: 5,000 unit Hydralazine HCl (Apresoline -) 50 mg PO BID [facility] Last Admin: 01/15/19 09:49 Dose: 50 mg Insulin Aspart (Novolog Vial Sliding Scale -) 1 vial SQ [facility]; Protocol Last Admin: 01/15/19 11:24 Dose: Not Given Insulin Detemir (Levemir Vial) 10 units SQ AM [facility] Last Admin: 01/15/19 06:47 Dose: Not Given Isosorbide Mononitrate (Imdur -) 30 mg PO DAILY [facility] Last Admin: 01/15/19 09:49 Dose: 30 mg Pantoprazole Sodium (Protonix -) 40 mg PO BID [facility] Last Admin: 01/15/19 09:49 Dose: 40 mg Rosuvastatin Calcium (Crestor -) 10 mg PO HS [facility] Last Admin: 01/14/19 22:12 Dose: 10 mg Valsartan (Diovan -) 320 mg PO DAILY [facility] Last Admin: 01/15/19 14:47 Dose: 320 mg - Objective Vital Signs: Vital Signs Temperature 97.6 F 01/15/19 14:40 Pulse Rate 74 01/15/19 14:40 Respiratory Rate 18 01/15/19 14:40 Blood Pressure 144/71 01/15/19 14:40 O2 Sat by Pulse Oximetry (%) 98 01/15/19 08:55 Constitutional: Yes: Calm Cardiovascular: Yes: Regular Rate and Rhythm, S1, S2 Respiratory: Yes: CTA Bilaterally Gastrointestinal: Yes: Normal Bowel Sounds, Soft Labs: CBC, BMP 01/14/19 06:40 01/14/19 06:40 INR, PTT INR 1.00 (0.83-1.09) 01/09/19 08:08 Problem List - Problems (1) KACI (acute kidney injury) Assessment/Plan: ivf stopped acute on chronic kidney disease creatinine better continue lasix and diovan Code(s): N17.9 - ACUTE KIDNEY FAILURE, UNSPECIFIED (2) Hypoglycemia Assessment/Plan: bgm insulin restarted lowe rdose endocrine consult noted Code(s): E16.2 - HYPOGLYCEMIA, UNSPECIFIED (3) HTN (hypertension) Code(s): I10 - ESSENTIAL (PRIMARY) HYPERTENSION (4) Hypothermia Assessment/Plan: resolved cultures negative iv abx stopped ID consulted Code(s): T68.XXXA - HYPOTHERMIA, INITIAL ENCOUNTER
== END 2019-01-15 17:43 | DRG 637 ==
LOC: JER 06:05 → JERBED 11:02 → OBSVTOIN 15:36 → J4S 23:49
PROVIDERS: ADMIT Student in an Organized Health Care Education/Training Program; ATTEND Student in an Organized Health Care Education/Training Program
DX: E11.649 Type 2 diabetes mellitus with hypoglycemia without coma (principal); G93.41 Metabolic encephalopathy; J90 Pleural effusion, not elsewhere classified; J98.11 Atelectasis; I13.0 Hypertensive heart and chronic kidney disease with heart failure and stage 1 through stage 4 chronic kidney disease, or unspecified chronic kidney disease; I50.22 Chronic systolic (congestive) heart failure; N17.9 Acute kidney failure, unspecified; E11.22 Type 2 diabetes mellitus with diabetic chronic kidney disease; N18.9 Chronic kidney disease, unspecified; E78.5 Hyperlipidemia, unspecified; K58.9 Irritable bowel syndrome, unspecified; K21.9 Gastro-esophageal reflux disease without esophagitis; I27.20 Pulmonary hypertension, unspecified; D64.9 Anemia, unspecified; E66.3 Overweight; R26.89 Other abnormalities of gait and mobility; Z68.26 Body mass index [BMI] 26.0-26.9, adult; K59.09 Other constipation; R68.0 Hypothermia, not associated with low environmental temperature; R00.1 Bradycardia, unspecified; E11.21 Type 2 diabetes mellitus with diabetic nephropathy; R10.31 Right lower quadrant pain; E11.40 Type 2 diabetes mellitus with diabetic neuropathy, unspecified; E11.43 Type 2 diabetes mellitus with diabetic autonomic (poly)neuropathy; K31.84 Gastroparesis; Z91.11 Patient's noncompliance with dietary regimen
CPT/HCPCS: 36415; 36600; 70450-TC; 71045-TC-FY; 80048; 80053; 80061; 81003; 82533; 82550; 82553; 82803; 82962; 83036; 83540; 83550; 83605; 83721; 83735; 83880; 84100; 84439; 84443; 84484; 85025; 85027; 85610; 85730; 87040; 87086; 93005; 93010; 93306-TC; 97116-GP; 99285-25; G0378; J1644; J7030

== ENCOUNTER 2019-09-02 06:08 | Day surgery (SDC) | payer BC ==
[2019-09-01 08:47] VITALS: BMI 26.0
[2019-09-02] MEDS ORDERED: HEPARIN NA (PORCINE) 5,000 UNITS/ML 1ML VIAL ONE (07:25)
[2019-09-02] MEDS ORDERED: POVIDONE-IODINE OINTMENT 10% - 28.4 GM TUBE ONE (07:29)
[2019-09-02] MEDS ORDERED: PAPAVERINE HCL 30 MG/1 ML 10 ML VIAL NR ONE (07:29)
[2019-09-02] MEDS ORDERED: PROPOFOL 20 ML ONE ×2 (08:05)
[2019-09-02] MEDS ORDERED: MIDAZOLAM HCL 2 MG/2 ML SINGLE DOSE VIAL ONE (08:07)
[2019-09-02] MEDS ORDERED: SUCCINYLCHOLINE CHLORIDE 200 MG/10 ML SYRINGE ONE (08:08)
[2019-09-02] MEDS ORDERED: EPHEDRINE SULFATE/0.9% NACL/PF 50 MG/10 ML SYRINGE NR ONE (08:08)
--- NOTE | 2019-09-02 08:10 | HP ---
Satellite [facility] - Chief Complaint History of Present Illness: 64 year old woman with ESRD on HD. She needs AV access. Right handed. History Source: Patient Limitations to Obtaining History: No Limitations - Past Medical History Allergies/Adverse Reactions: Allergies Allergy/AdvReac Type Severity Reaction Status Date / Time No Known Allergies Allergy Verified 05/01/19 16:58 Cardiovascular: Yes: CHF, HTN, Hyperlipdemia Gastrointestinal: Yes: Constipation, GERD Heme/Onc: Yes: Anemia Endocrine: Yes: Diabetes Mellitus (DM II) - Current Medications Current Medications: Home Medications Medication Instructions Recorded Acetaminophen [Tylenol] 325 mg PO PRN PRN 09/01/19 Carvedilol [Coreg -] 6.25 mg PO BID 09/01/19 Furosemide 40 mg PO ASDIR 09/01/19 Hydralazine HCl 25 mg PO BID 09/01/19 Sevelamer HCl 800 mg PO AC 09/01/19 Valsartan [Diovan] 80 mg PO DAILY 09/01/19 [facility]ellite Physical Exam - Physical Examination General Appearance: Well Nourished, Alert & Oriented x3 ENT: Clear Lung: Clear to auscultation Heart: Regular rate & rhythm Abdomen: Soft, No tenderness Extremities: No edema, No tenderness/swelling Neurological: Intact, Oriented Satellite Impression/Plan - Impression/Plan Impression: ESRD Operative Procedure: Creation AV fistula left arm Date to be Performed: 09/02/19
[2019-09-02] MEDS ORDERED: LIDOCAINE HCL/PF 2% SDV 5ML VIAL ONE (08:27)
[2019-09-02] MEDS ORDERED: LIDOCAINE HCL 1%, 10 MG/ML (20ML VIAL) NR ONE (08:35)
[2019-09-02] MEDS ORDERED: HEPARIN NA (PORCINE) 5,000 UNITS/ML 1ML VIAL SQ ONE (08:45)
[2019-09-02] MEDS ORDERED: ACETAMINOPHEN 325 MG TABLET (FP) PO PRN (08:48)
[2019-09-02] MEDS ORDERED: oxyCODONE HCL 5 MG TABLET PO PRN ×2 (08:48)
[2019-09-02] MEDS ORDERED: ONDANSETRON 4 MG/2 ML VIAL IVPUSH PRN (08:48)
[2019-09-02] MEDS ORDERED: SODIUM CHLORIDE 1,000 ML IV SCH (09:00)
[2019-09-02] MEDS ORDERED: LIDOCAINE HCL 1%, 10 MG/ML (20ML VIAL) ONE (09:09)
--- NOTE | 2019-09-02 10:27 | OP ---
Operative Note - Note: Operative Date: 09/02/19 Pre-Operative Diagnosis: ESRD Operation: Creation AV fistula left arm Findings: Cephalic vein and radial artery small diameter and not usable. Antecubital vein and brachial artery adequate for AV fistula Post-Operative Diagnosis: Same as Pre-op Surgeon: Jose Witt Scrubber System Attendant: Donna Vasquez Anesthesiologist/FIRE EATER: Mehreen Cobos Anesthesia: Fractional Estimated Blood Loss (mls): 20 Operative Report Dictated: Yes
--- NOTE | 2019-09-02 10:35 | SURG ---
Surgery Pack Master Note Pack Master: Donna Vasquez PA-C Date of Service: 09/02/19 Diagnosis: ESRD Procedure: Creation AV fistula left arm I was present for the entirety of the operative procedure. For further detail, please refer to operative report. Visit type - Case Type Case Type: Scheduled - Emergency Emergency Visit: No - New patient This patient is new to me today: Yes Date on this admission: 09/02/19
[2019-09-02 11:36] VITALS: TEMP 97.5
[2019-09-02] MEDS ORDERED: ACETAMINOPHEN 325 MG TABLET (FP) ONE (12:55)
[2019-09-02 14:17] VITALS: BP 160/84; PULSE 70
--- NOTE | 2019-09-03 09:57 | OP ---
DATE OF OPERATION: 09/02/2019 SURGEON: Jose Witt MD LEGAL DOCUMENT ASSISTANT: Donna Vasquez PA-C PROCEDURE: Creation of arteriovenous fistula, left arm. PREOPERATIVE DIAGNOSIS: Renal failure. POSTOPERATIVE DIAGNOSIS: Renal failure. ANESTHESIA: Fractional. ANESTHESIOLOGIST: LEOLA Lugo OPERATIVE FINDINGS: Exploration of the cephalic vein and radial artery at the wrist showed the vessels to be of inadequate diameter for use for AV fistula. The antecubital vein and brachial artery were adequate in the upper forearm. OPERATIVE PROCEDURE: Following routine patient identification with side and site verification, intravenous sedation was established. The left arm was prepped with ChloraPrep. Timeout was performed. Lidocaine 1% was infiltrated in the wrist over the cephalic vein and radial artery. The vessels were exposed through skin incisions using cautery for hemostasis. The vein was ligated distally and incised. It was distended with heparin and papaverine solution. No. 5 and No. 8 feeding tubes were passed proximally without resistance. Radial artery was exposed and found to be less than 2 mm in diameter and did not appear to increase in size with application of lidocaine to the vessel wall. Decision was made that this would be inadequate for successful AV fistula creation. Therefore, the vein was clipped and divided and the wounds were closed with 3-0 Vicryl and 4-0 Biosyn. Additional lidocaine was infiltrated in the antecubital fossa and the skin incision made longitudinally. A subcutaneous dissection allowed for mobilization of the antecubital vein which was approximately 3 mm in diameter. Side branches of the vein were ligated and divided. The vein was ligated distally and incised. It was distended with heparin and papaverine solution. Feeding tubes were passed proximally without resistance. The incision was deepened through the muscle fascia. There were 2 arteries present due to a high bifurcation of the brachial artery. The more superficial one was approximately 2 mm in diameter while the deeper one was approximately 3 mm. This was used for the fistula. The artery was mobilized and secured with vessel loops. It was occluded with vascular clamps and opened on the exposed surface with a 6-mm arteriotomy. The vein was then freed and spatulated and anastomosed to the side of the artery with running suture of 6-0 Prolene. Prior to completion of the suture line the artery was allowed to backbleed and flush and the vein was flushed with heparin solution. Suture line was completed and the vessels were released. There was flow through the anastomosis with a palpable thrill proximally. The bleeding from the suture line was controlled with Surgicel. When hemostasis was adequate the wound was closed with subcutaneous suture of 3-0 Vicryl and running subcuticular suture of 4-0 Biosyn. Sterile dressings were applied and the patient was taken to the recovery room in stable condition. Nesha [id number]
== END 2019-09-02 13:20 | disposition home or self-care (01) ==
LOC: JASU-SURG 06:08
PROVIDERS: ATTEND Surgery
PROC: 03180ZF Bypass Left Brachial Artery to Lower Arm Vein, Open Approach (ICD-10-PCS; principal; 2019-09-02 08:00)
DX: E11.22 Type 2 diabetes mellitus with diabetic chronic kidney disease (principal); I13.11 Hypertensive heart and chronic kidney disease without heart failure, with stage 5 chronic kidney disease, or end stage renal disease; N18.6 End stage renal disease; Z99.2 Dependence on renal dialysis
CPT/HCPCS: 36415; 84132; 94760; J1644

== ENCOUNTER 2019-12-14 05:04 | Day surgery (SDC) | payer BC ==
[2019-12-11 10:20] VITALS: BMI 24.9
--- OUTSIDE RECORDS SUMMARY | 2019-12-14 05:08 | XMS ---
:[address] [facility] Support Name Relationship Address Phone RE, RETIRED Unavailable Unavailable Unavailable LAURITA JOHN FRIEND [address] [facility] [place] [address] RUDOLPH JONES FRIEND [address] [facility] [place] [address] RE Unavailable Unavailable Unavailable MELISSA OJEDA [address] [place] [address] MELISSA OJEDA [place] [address] Re-disclosure Warning The records that you are about to access may contain information from federally- assisted alcohol or drug abuse programs. If such information is present, then the following federally mandated warning applies: This information has been disclosed to you from records protected by federal confidentiality rules (42 CFR part 2). The federal rules prohibit you from making any further disclosure of this information unless further disclosure is expressly permitted by the written consent of the person to whom it pertains or as otherwise permitted by 42 CFR part 2. A general authorization for the release of medical or other information is NOT sufficient for this purpose. The Federal rules restrict any use of the information to criminally investigate or prosecute any alcohol or drug abuse patient.The records that you are about to access may contain highly sensitive health information, the redisclosure of which is protected by Article 27-F of the [facility] Public Health law. If you continue you may haveaccess to information: Regarding HIV / AIDS; Provided by facilities licensed or operated by the [facility] Office of Mental Health; or Provided by the [facility] Office for People With Developmental Disabilities. If such information is present, then the following [facility] mandated warning applies: This information has been disclosed to you from confidential records which are protected by state law. State law prohibits you from making any further disclosure of this information without the specific written consent of the person to whom it pertains, or as otherwise permitted by law. Any unauthorized further disclosure in violation of state law may result in a fine or halfway sentence or both. A general authorization for the release of medical or other information is NOT sufficient authorization for further disclosure. Insurance Providers Payer name Policy type / Policy ID Covered Covered green party's Policy Plan Coverage type green party ID relationship to Garza Information garza PPO [id number] Results ID Date Data Source [id number] 12/09/2019 12:55:00 PM EDT [facility] Name Value Range Interpretation Description Data Sup porting Code Source(s) Document(s ) SARS [facility] coronavirus 2 RNA This lab was ordered by [facility] and reported by [facility]. ID Date Data Source [id number] 11/24/2019 05:11:00 PM EDT [facility] Name Value Range Interpretation Description Data Sup porting Code Source(s) Document(s ) SARS [facility] Coronavirus 2 RNA Presence Respiratory Specimen ETAGAN Probe Detection This lab was ordered by [place] and rep orted by [facility]. ID Date Data Source [id number] 08/28/2019 08:20:00 AM EDT [facility] Name Value Range Interpretation Description Data Sup porting Code Source(s) Document(s ) SARS [facility] CORONAVIRUS 2 RNA This lab was ordered by [facility] and reported by [facility]. ID Date Data Source [id number] 08/05/2019 01:47:00 PM EDT [facility] Name Value Range Interpretation Description Data Sup porting Code Source(s) Document(s ) SARS [facility] CORONAVIRUS 2 RNA [facility] and reported by [facility]. Procedure
[2019-12-14] MEDS ORDERED: HEPARIN NA (PORCINE) 5,000 UNITS/ML 1ML VIAL ONE (10:25)
[2019-12-14] MEDS ORDERED: LIDOCAINE HCL 1%, 10 MG/ML (20ML VIAL) ONE (10:25)
[2019-12-14] MEDS ORDERED: POVIDONE-IODINE OINTMENT 10% - 28.4 GM TUBE ONE (10:26)
--- NOTE | 2019-12-14 10:32 | HP ---
Satellite H - Chief Complaint Chief Complaint: ESRD History of Present Illness: 64 year old woman with ESRD on HD. Left armfistula failed to mature and graft needed. History Source: Patient Limitations to Obtaining History: No Limitations - Past Medical History Allergies/Adverse Reactions: Allergies Allergy/AdvReac Type Severity Reaction Status Date / Time No Known Allergies Allergy Verified 12/14/19 08:26 Cardiovascular: Yes: CHF, HTN, Hyperlipdemia Pulmonary: No: Asthma, Bronchitis, Cancer, COPD, O2 Dependent, Pneumonia, Previously Intubated, Pulmonary Embolus, Pulmonary Fibrosis, Sleep Apnea Gastrointestinal: Yes: Constipation, GERD Heme/Onc: Yes: Anemia Endocrine: Yes: Diabetes Mellitus (DM II) - Current Medications Current Medications: Home Medications Medication Instructions Recorded Acetaminophen [Tylenol] 325 mg PO PRN PRN 09/01/19 Carvedilol [Coreg -] 6.25 mg PO BID 09/01/19 Furosemide 40 mg PO ASDIR 09/01/19 Hydralazine HCl 25 mg PO BID 09/01/19 Sevelamer HCl 800 mg PO AC 09/01/19 Valsartan [Diovan] 80 mg PO DAILY 09/01/19 Satellite Physical Exam - Physical Examination Vital Signs: Vital Signs Period Temp Pulse Resp BP Sys/Restrepo Pulse Ox Last 24 Hr 97.6 F 66 16 143/62 100-100 General Appearance: Alert & Oriented x3 ENT: Clear Lung: Clear to auscultation Heart: Regular rate & rhythm Abdomen: Soft Extremities: No edema Satellite Impression/Plan - Impression/Plan Impression: ESRD on HD Operative Procedure: Placement AV graft left arm. Date to be Performed: 12/14/19
[2019-12-14] MEDS ORDERED: MIDAZOLAM HCL 2 MG/2 ML SINGLE DOSE VIAL ONE ×2 (10:55)
[2019-12-14] MEDS ORDERED: PROPOFOL 20 ML ONE ×4 (10:55→12:14)
[2019-12-14] MEDS ORDERED: ceFAZolin SODIUM 1 GM VIAL ONE (11:15)
[2019-12-14] MEDS ORDERED: ceFAZolin SODIUM 1 GM VIAL IVPB ONE (11:19)
[2019-12-14] MEDS ORDERED: LIDOCAINE HCL 1%, 10 MG/ML (20ML VIAL) NR ONE (11:26)
[2019-12-14] MEDS ORDERED: POVIDONE-IODINE OINTMENT 10% - 28.4 GM TUBE TP ONE (12:35)
[2019-12-14] MEDS ORDERED: ONDANSETRON 4 MG/2 ML VIAL IVPUSH PRN (12:37)
[2019-12-14] MEDS ORDERED: oxyCODONE HCL 5 MG TABLET PO PRN (12:37)
[2019-12-14] MEDS ORDERED: SODIUM CHLORIDE 1,000 ML IV SCH (12:45)
[2019-12-14] MEDS ORDERED: ACETAMINOPHEN 325 MG TABLET (FP) PO PRN (12:55)
--- NOTE | 2019-12-14 12:55 | OP ---
Operative Note - Note: Operative Date: 12/14/19 Pre-Operative Diagnosis: ESRD on HD Operation: Placement AV graft left arm Implants: 7 mm Interring graft Post-Operative Diagnosis: Same as Pre-op Surgeon: Jose Witt Anesthesiologist/POWER BARKER OPERATOR: Ronny Jean Anesthesia: MAC Estimated Blood Loss (mls): 25
[2019-12-14 15:02] VITALS: TEMP 98
[2019-12-14] MEDS ORDERED: oxyCODONE HCL 5 MG TABLET ONE (15:09)
[2019-12-14 18:19] VITALS: BP 120/56; PULSE 70
--- NOTE | 2019-12-15 10:43 | OP ---
DATE OF OPERATION: 12/14/2019 SURGEON: Jose Tilley MD PROCEDURE: Placement of arteriovenous graft, left arm. PREOPERATIVE DIAGNOSIS: Renal failure. POSTOPERATIVE DIAGNOSIS: Renal failure. ANESTHESIA: Fractional. ANESTHESIOLOGIST: LEOLA Garcia OPERATIVE FINDINGS: The left brachiocephalic fistula was patent distally, but had occluded its venous outflow. The axillary vein was patent. OPERATIVE PROCEDURE: Following routine patient identification with site and side verification, intravenous sedation was established. The left arm and axilla were prepped with ChloraPrep. Timeout was performed. Next, 1% lidocaine was infiltrated in the axilla and a longitudinal incision made. Subcutaneous tissues were divided using cautery. The axillary vein was mobilized and secured with vessel loop. Lidocaine was infiltrated just proximal to the antecubital crease over the distal AV fistula. Transverse incision was made, and the vein was mobilized. It was ligated proximally. A vascular clamp was placed distally, and the vein was transected. An end-to-end anastomosis was then made to a 7-mm PTFE graft. The graft was then passed through a subcutaneous tunnel between the 2 incisions with care not to twist it. The vein was occluded with vessel loop and vascular clamp and opened on exposed surface with a 15-mm venotomy. The end of the graft was beveled and anastomosed to the side of the vein with running sutures of 6-0 Prolene. Prior to completion of the suture line, the vein was allowed to back bleed and the graft was allowed to flush and the lumen was filled with heparin solution. Suture line was then completed, and all vessels were released. There was good flow through the anastomosis. Surgicel was applied to control bleeding from the suture lines. When hemostasis was adequate, the wounds were closed with interrupted suture of 3-0 Vicryl on the subcutaneous tissues and skin melisa. Sterile dressings were applied, and the patient was taken to the recovery room in stable condition. JOSE TILLEY M.D. [id number]
== END 2019-12-14 17:15 | disposition home or self-care (01) ==
LOC: JASU-SURG 05:04
PROVIDERS: ATTEND Surgery
PROC: 03160JD Bypass Left Axillary Artery to Upper Arm Vein with Synthetic Substitute, Open Approach (ICD-10-PCS; principal; 2019-12-14 10:00)
DX: I12.0 Hypertensive chronic kidney disease with stage 5 chronic kidney disease or end stage renal disease (principal); N18.6 End stage renal disease
CPT/HCPCS: 36415; 84132; 94760; J1644

== ENCOUNTER 2021-08-23 12:27 | Inpatient (IN) | payer BC, OTHER ==
[2021-08-23] MEDS ORDERED: CALCIUM GLUC IN NACL, ISO-OSM 1 GM/50 ML BAG IVPB ONE (12:46)
[2021-08-23] MEDS ORDERED: DEXTROSE 50%-WATER 25 GM/50 ML DISP.SYRIN ONE (13:01)
[2021-08-23] MEDS ORDERED: CALCIUM GLUCONATE 10% - 1,000 MG/10 ML VIAL ONE (13:02)
[2021-08-23] MEDS: DEXTROSE 50%-WATER - 25 GM/50 ML VIAL IVPUSH PRN ×2 (13:10→13:15)
[2021-08-23] MEDS ORDERED: PIPERACILLIN/TAZOB 2.25 GM 2.25 GM in DEXTROSE 5%-WATER - 50 ML IVPB ONE ×2 (13:45→20:27)
[2021-08-23] MEDS ORDERED: VANCOMYCIN/WATER 1,250 MG/250 ML BAG IVPB ONE (13:45)
[2021-08-23] MEDS ORDERED: GLUCAGON 1 MG KIT IVPUSH ONE ×2 (14:03→14:16)
[2021-08-23] MEDS ORDERED: PIPERACILLIN/TAZOB 2.25 GM 2.25 GM/50 ML BAG IVPB ONE ×2 (14:10→20:36)
[2021-08-23] MEDS ORDERED: GLUCAGON 1 MG KIT ONE (14:10)
[2021-08-23 14:44] LABS: HEMATOCRIT 29.6 % (32.4-45.2); HEMOGLOBIN 9.7 GM/dL (10.7-15.3); MCHC 32.8 g/dl (32.0-36.0); MEAN CELL VOLUME 97.5 fl (80-96); MEAN PLT VOLUME 10.3 fl (7.5-11.1); PLATELET COUNT 50 10^3/uL (134-434); RBC 3.03 M/mm3 (3.60-5.2); RDW 16.3 % (11.6-15.6); WHITE BLOOD COUNT 4.3 K/mm3 (4.0-10.0)
[2021-08-23 14:45] LABS: CHLORIDE 106 mmol/L (98-107); SODIUM 135 mmol/L (136-145)
[2021-08-23] MEDS ORDERED: VANCOMYCIN/WATER 1250 MG 1,250 MG/250 ML BAG IVPB ONE (15:03)
[2021-08-23 15:11] LABS: ALBUMIN 3.4 g/dl (3.4-5.0); ALK PHOS 159 U/L (45-117); ANION GAP 18 MMOL/L (8-16); BILIRUBIN,TOTAL 0.5 mg/dL (0.2-1); CALCIUM 7.5 mg/dL (8.5-10.1); CO2 11 mmol/L (21-32); CREATININE 8.1 mg/dL (0.55-1.3); GLUCOSE,RANDOM 69 mg/dL (74-106); MAGNESIUM 2.5 mg/dL (1.8-2.4); SGOT/AST 35 U/L (15-37); SGPT/ALT 41 U/L (13-61)
[2021-08-23 15:14] LABS: ANISOCYTOSIS 0; BLOOD UREA NITROGEN 172.4 mg/dL (7-18); HELMET CELLS 0; HOWELL-JOLLY BODIES 0; MACROCYTOSIS 0; OVALOCYTE 0; ROULEAU 0; SICKELED CELLS 0; TARGET CELLS 0; TEAR DROP CELLS 0; TOXIC GRANULATION 0
[2021-08-23 15:25] LABS: ERYTHROCYTE SEDIMENTATION RATE 60 mm/hr (0-30)
[2021-08-23] MEDS ORDERED: BACITRACIN 15 GM TUBE TOPICAL OINTMENT TP ONE (17:04)
[2021-08-23] MEDS ORDERED: oxyCODONE HCL 5 MG TABLET PO PRN (17:28)
[2021-08-23] MEDS ORDERED: ACETAMINOPHEN 325 MG TABLET (FP) PO PRN (17:28)
[2021-08-23] MEDS: SEVELAMER CARBONATE 800 MG TAB (FP) PO SCH (18:24)
[2021-08-23] MEDS ORDERED: SODIUM CHLORIDE 0.9% 500 ML INFUS.BAG IV ONE ×2 (20:23→20:27)
[2021-08-23] MEDS ORDERED: LINEZOLID 600 MG PREMIX BAG 600 MG in PREMIX 300 IVPB ONE (20:29)
[2021-08-23] MEDS ORDERED: DEXTROSE 5%-NORMAL SALINE 1,000 ML IV SCH (20:45)
[2021-08-23 21:02] LABS: ARTERIAL BLD GAS O2 SATURATION 87.7 % (95-98); ARTERIAL BLOOD GAS BASE EXCESS -18.8 mmol/L (-2-2); ARTERIAL BLOOD GAS PO2 62.6 mmHg (80-100); ARTERIAL BLOOD GAS pH 7.203 (7.350-7.450)
[2021-08-23 21:03] LABS: ALLENS TEST POSITIVE
[2021-08-23] MEDS ORDERED: CARVEDILOL 6.25 MG TABLET (FP) PO SCH (22:00)
[2021-08-23] MEDS: DOCUSATE SODIUM 100 MG CAPSULE (FP) PO SCH (23:30)
[2021-08-23] MEDS: HEPARIN NA (PORCINE) 5,000 UNITS/ML 1ML VIAL SQ SCH (23:30)
[2021-08-23] MEDS: DEXTROSE 5%-NORMAL SALINE 1,000 ML IV SCH (23:30)
[2021-08-24] MEDS ORDERED: PROPOFOL 200 MG/20 ML VIAL IVPUSH ONE (02:13)
[2021-08-24] MEDS ORDERED: SODIUM CHLORIDE 250 ML IV PRN ×2 (06:54→13:11)
[2021-08-24 07:09] LABS: HEMATOCRIT 23.8 % (32.4-45.2); HEMOGLOBIN 7.9 GM/dL (10.7-15.3); MCH 31.8 pg (25.7-33.7); MCHC 33.1 g/dl (32.0-36.0); MEAN CELL VOLUME 95.8 fl (80-96); MEAN PLT VOLUME 10.6 fl (7.5-11.1); PLATELET COUNT 52 10^3/uL (134-434); RBC 2.48 M/mm3 (3.60-5.2); RDW 16.4 % (11.6-15.6); WHITE BLOOD COUNT 4.2 K/mm3 (4.0-10.0)
[2021-08-24 07:29] LABS: CHLORIDE 110 mmol/L (98-107); SODIUM 138 mmol/L (136-145)
[2021-08-24 07:37] LABS: ANION GAP 20 MMOL/L (8-16); CO2 8 mmol/L (21-32); GLUCOSE,RANDOM 126 mg/dL (74-106); SGPT/ALT 31 U/L (13-61)
[2021-08-24 07:39] LABS: BILIRUBIN,TOTAL 0.4 mg/dL (0.2-1); TOT PROT 5.5 g/dl (6.4-8.2)
[2021-08-24 07:41] LABS: SGOT/AST 24 U/L (15-37)
[2021-08-24 07:52] LABS: ALBUMIN 2.6 g/dl (3.4-5.0); ALK PHOS 107 U/L (45-117); BLOOD UREA NITROGEN 172.7 mg/dL (7-18); CALCIUM 6.5 mg/dL (8.5-10.1); CREATININE 8.1 mg/dL (0.55-1.3)
[2021-08-24] MEDS: SEVELAMER CARBONATE 800 MG TAB (FP) PO SCH ×3 (09:58→17:10)
[2021-08-24] MEDS: HEPARIN NA (PORCINE) 5,000 UNITS/ML 1ML VIAL SQ SCH ×2 (09:58→21:40)
[2021-08-24] MEDS ORDERED: MUPIROCIN 2% TOPICAL OINTMENT FOR DECOLONIZATION NS SCH (10:00)
[2021-08-24] MEDS ORDERED: PIPERACILLIN/TAZOB 2.25 GM 2.25 GM in DEXTROSE 5%-WATER - 50 ML IVPB SCH (10:00)
[2021-08-24] MEDS ORDERED: PIPERACILLIN/TAZOBACTAM 2.25 GM VIAL IVPB ONE ×3 (10:01→17:23)
[2021-08-24] MEDS ORDERED: ALBUMIN HUMAN 25% 12.5 GM/50 ML VIAL IV SCH (13:15)
[2021-08-24] MEDS ORDERED: VANCOMYCIN/WATER FOR INJ (PEG) 1,000 MG/200 ML BAG IVPB ONE (15:00)
[2021-08-24] MEDS ORDERED: DEXTROSE 5%-WATER - 50 ML IVPB ONE ×2 (17:08→17:23)
[2021-08-24] MEDS: PIPERACILLIN/TAZOB 2.25 GM 2.25 GM in DEXTROSE 5%-WATER - 50 ML IVPB SCH (17:11)
[2021-08-24] MEDS ORDERED: LIDOCAINE HCL/PF 1% SDV 5ML VIAL SQ ONE (21:00)
[2021-08-24] MEDS: DOCUSATE SODIUM 100 MG CAPSULE (FP) PO SCH (21:40)
[2021-08-24] MEDS ORDERED: CHLORHEXIDINE GLUCONATE 4% CLEANSER FOR DECOLONIZATION TP SCH (22:00)
[2021-08-24] MEDS: DEXTROSE 5%-NORMAL SALINE 1,000 ML IV SCH (23:31)
[2021-08-25] MEDS ORDERED: PIPERACILLIN/TAZOBACTAM 2.25 GM VIAL IVPB ONE ×3 (00:39→17:43)
[2021-08-25] MEDS ORDERED: DEXTROSE 5%-WATER - 50 ML IVPB ONE ×3 (00:39→17:43)
[2021-08-25] MEDS: PIPERACILLIN/TAZOB 2.25 GM 2.25 GM in DEXTROSE 5%-WATER - 50 ML IVPB SCH ×3 (01:26→17:48)
[2021-08-25] MEDS ORDERED: EPOETIN ALFA-EPBX 4,000 UNIT/ML VIAL IVPUSH ONE (08:00)
[2021-08-25] MEDS: SEVELAMER CARBONATE 800 MG TAB (FP) PO SCH ×3 (08:04→17:48)
[2021-08-25 08:50] LABS: HEMATOCRIT 24.6 % (32.4-45.2); HEMOGLOBIN 8.3 GM/dL (10.7-15.3); MCH 31.8 pg (25.7-33.7); MCHC 33.5 g/dl (32.0-36.0); MEAN CELL VOLUME 94.8 fl (80-96); MEAN PLT VOLUME 9.2 fl (7.5-11.1); PLATELET COUNT 45 10^3/uL (134-434); RDW 16.8 % (11.6-15.6); WHITE BLOOD COUNT 3.6 K/mm3 (4.0-10.0)
[2021-08-25 08:56] LABS: INR 1.57 (0.83-1.09); PROTHROMBIN TIME (PATIENT) 18.1 SEC (9.7-13.0)
[2021-08-25 08:59] LABS: ACTIVATED PTT 37.2 SECONDS (25.2-36.5)
[2021-08-25 09:11] LABS: IRON SERUM 130 ug/dL (50-175); TOTAL IRON BINDING CAPACITY 164 ug/dL (250-450)
[2021-08-25 09:15] LABS: LDH 294 U/L (84-246)
[2021-08-25 09:21] LABS: CHLORIDE 108 mmol/L (98-107); SODIUM 141 mmol/L (136-145)
[2021-08-25 09:29] LABS: ALBUMIN 2.7 g/dl (3.4-5.0); ANION GAP 16 MMOL/L (8-16); CO2 18 mmol/L (21-32); GLUCOSE,RANDOM 81 mg/dL (74-106)
[2021-08-25 09:30] LABS: CREATININE 5.9 mg/dL (0.55-1.3); SGPT/ALT 29 U/L (13-61)
[2021-08-25 09:32] LABS: BILIRUBIN,TOTAL 0.5 mg/dL (0.2-1); SGOT/AST 24 U/L (15-37); TOT PROT 5.6 g/dl (6.4-8.2)
[2021-08-25 09:34] LABS: ALK PHOS 97 U/L (45-117)
[2021-08-25 09:39] LABS: CALCIUM 6.3 mg/dL (8.5-10.1)
[2021-08-25] MEDS: ALBUMIN HUMAN 25% 12.5 GM/50 ML VIAL IV SCH ×2 (10:50→10:51)
[2021-08-25] MEDS: HEPARIN NA (PORCINE) 5,000 UNITS/ML 1ML VIAL SQ SCH ×2 (12:07→21:22)
[2021-08-25] MEDS: DEXTROSE 5%-NORMAL SALINE 1,000 ML IV SCH (19:00)
[2021-08-25] MEDS: DOCUSATE SODIUM 100 MG CAPSULE (FP) PO SCH ×2 (21:21→21:26)
[2021-08-26] MEDS ORDERED: PIPERACILLIN/TAZOBACTAM 2.25 GM VIAL IVPB ONE ×3 (01:17→16:54)
[2021-08-26] MEDS ORDERED: DEXTROSE 5%-WATER - 50 ML IVPB ONE ×3 (01:19→16:54)
[2021-08-26] MEDS: PIPERACILLIN/TAZOB 2.25 GM 2.25 GM in DEXTROSE 5%-WATER - 50 ML IVPB SCH ×3 (01:25→17:25)
[2021-08-26 07:04] LABS: BASO % 0.7 % (0-2.0); EOS % 2.3 % (0-4.5); HEMATOCRIT 24.3 % (32.4-45.2); HEMOGLOBIN 8.1 GM/dL (10.7-15.3); LYMPH % 6.9 % (8-40); MCH 32.1 pg (25.7-33.7); MCHC 33.4 g/dl (32.0-36.0); MEAN PLT VOLUME 10.4 fl (7.5-11.1); MONO % 14.4 % (3.8-10.2); NEUT % 75.7 % (42.8-82.8); PLATELET COUNT 47 10^3/uL (134-434); RBC 2.53 M/mm3 (3.60-5.2); RDW 16.9 % (11.6-15.6); WHITE BLOOD COUNT 4.3 K/mm3 (4.0-10.0)
[2021-08-26 07:16] LABS: CHLORIDE 110 mmol/L (98-107); SODIUM 145 mmol/L (136-145)
[2021-08-26 07:25] LABS: CO2 25 mmol/L (21-32); GLUCOSE,RANDOM 83 mg/dL (74-106)
[2021-08-26 07:26] LABS: ALBUMIN 2.6 g/dl (3.4-5.0); ANION GAP 10 MMOL/L (8-16)
[2021-08-26 07:29] LABS: CREATININE 3.9 mg/dL (0.55-1.3); SGOT/AST 26 U/L (15-37); SGPT/ALT 28 U/L (13-61)
[2021-08-26 07:30] LABS: BILIRUBIN,TOTAL 0.9 mg/dL (0.2-1); TOT PROT 5.6 g/dl (6.4-8.2)
[2021-08-26 07:32] LABS: ALK PHOS 109 U/L (45-117)
[2021-08-26 07:37] LABS: BLOOD UREA NITROGEN 43.9 mg/dL (7-18); CALCIUM 6.8 mg/dL (8.5-10.1)
[2021-08-26] MEDS: SEVELAMER CARBONATE 800 MG TAB (FP) PO SCH ×3 (08:09→17:25)
[2021-08-26] MEDS ORDERED: POTASSIUM CHLORIDE TABS 10 MEQ TABLET.ER (FP) PO ONE (10:34)
[2021-08-26] MEDS: HEPARIN NA (PORCINE) 5,000 UNITS/ML 1ML VIAL SQ SCH (10:39)
[2021-08-26] MEDS ORDERED: CALCIUM GLUCONATE IN NACL 1 GM/50 ML BAG IVPB ONE (10:40)
[2021-08-26] MEDS: LACTOBACILLUS ACIDOPHILUS 1 TABLET PO SCH (10:48)
[2021-08-26] MEDS: DEXTROSE 5%-NORMAL SALINE 1,000 ML IV SCH (17:33)
[2021-08-26] MEDS: DOCUSATE SODIUM 100 MG CAPSULE (FP) PO SCH (21:13)
[2021-08-27] MEDS ORDERED: PIPERACILLIN/TAZOBACTAM 2.25 GM VIAL IVPB ONE ×3 (00:15→17:23)
[2021-08-27] MEDS ORDERED: DEXTROSE 5%-WATER - 50 ML IVPB ONE ×2 (00:17→17:23)
[2021-08-27] MEDS: PIPERACILLIN/TAZOB 2.25 GM 2.25 GM in DEXTROSE 5%-WATER - 50 ML IVPB SCH ×3 (02:40→17:42)
[2021-08-27 07:15] LABS: BASO % 1.6 % (0-2.0); EOS % 2.8 % (0-4.5); HEMATOCRIT 25.3 % (32.4-45.2); HEMOGLOBIN 8.4 GM/dL (10.7-15.3); LYMPH % 6.3 % (8-40); MCHC 33.3 g/dl (32.0-36.0); MEAN CELL VOLUME 96.1 fl (80-96); MEAN PLT VOLUME 8.9 fl (7.5-11.1); NEUT % 74.3 % (42.8-82.8); PLATELET COUNT 52 10^3/uL (134-434); RBC 2.63 M/mm3 (3.60-5.2); RDW 17.8 % (11.6-15.6); WHITE BLOOD COUNT 5.5 K/mm3 (4.0-10.0)
[2021-08-27 07:30] LABS: CHLORIDE 111 mmol/L (98-107); SODIUM 145 mmol/L (136-145)
[2021-08-27 07:34] LABS: ALBUMIN 2.5 g/dl (3.4-5.0)
[2021-08-27 07:36] LABS: ANION GAP 11 MMOL/L (8-16); BLOOD UREA NITROGEN 53.4 mg/dL (7-18); CO2 23 mmol/L (21-32); GLUCOSE,RANDOM 90 mg/dL (74-106)
[2021-08-27 07:38] LABS: PHOSPHOROUS 4.6 mg/dL (2.5-4.9); SGOT/AST 21 U/L (15-37); SGPT/ALT 29 U/L (13-61)
[2021-08-27 07:39] LABS: TOT PROT 5.6 g/dl (6.4-8.2)
[2021-08-27 07:41] LABS: ALK PHOS 168 U/L (45-117); CALCIUM 6.7 mg/dL (8.5-10.1)
[2021-08-27] MEDS: SEVELAMER CARBONATE 800 MG TAB (FP) PO SCH (07:42)
[2021-08-27] MEDS: LACTOBACILLUS ACIDOPHILUS 1 TABLET PO SCH (10:09)
[2021-08-27] MEDS ORDERED: CALCIUM GLUCONATE IN NACL 1 GM/50 ML BAG IVPB ONE (10:46)
[2021-08-27] MEDS: CALCIUM 500MG/VIT-D 200 UNITS COMBO TABLET (FP) PO SCH (11:34)
[2021-08-27] MEDS: CALCIUM ACETATE 667 MG CAPSULE (FP) PO SCH ×2 (11:34→17:42)
[2021-08-27] MEDS: CALCITRIOL 0.25 MCG CAPSULE (FP) PO SCH ×2 (11:34→21:11)
[2021-08-27] MEDS: DOCUSATE SODIUM 100 MG CAPSULE (FP) PO SCH (21:14)
[2021-08-28] MEDS ORDERED: PIPERACILLIN/TAZOBACTAM 2.25 GM VIAL IVPB ONE ×3 (00:19→16:53)
[2021-08-28] MEDS: PIPERACILLIN/TAZOB 2.25 GM 2.25 GM in DEXTROSE 5%-WATER - 50 ML IVPB SCH ×3 (01:08→17:17)
[2021-08-28] MEDS ORDERED: EPOETIN ALFA-EPBX 10,000 UNIT/ML VIAL IVPUSH ONE (08:00)
[2021-08-28] MEDS ORDERED: SODIUM CHLORIDE 250 ML IV PRN (08:00)
[2021-08-28 09:48] LABS: HEMATOCRIT 25.4 % (32.4-45.2); HEMOGLOBIN 8.3 GM/dL (10.7-15.3); MCH 31.9 pg (25.7-33.7); MCHC 32.7 g/dl (32.0-36.0); MEAN CELL VOLUME 97.5 fl (80-96); MEAN PLT VOLUME 9.7 fl (7.5-11.1); PLATELET COUNT 67 10^3/uL (134-434); RBC 2.61 M/mm3 (3.60-5.2); RDW 17.3 % (11.6-15.6)
[2021-08-28 10:12] LABS: CALCIUM 7.5 mg/dL (8.5-10.1)
[2021-08-28 10:13] LABS: BLOOD UREA NITROGEN 64.1 mg/dL (7-18)
[2021-08-28] MEDS: CALCIUM ACETATE 667 MG CAPSULE (FP) PO SCH ×3 (11:51→17:17)
[2021-08-28] MEDS: LACTOBACILLUS ACIDOPHILUS 1 TABLET PO SCH (11:52)
[2021-08-28] MEDS: CALCIUM 500MG/VIT-D 200 UNITS COMBO TABLET (FP) PO SCH (11:52)
[2021-08-28] MEDS: CALCITRIOL 0.25 MCG CAPSULE (FP) PO SCH ×2 (11:52→21:09)
[2021-08-28] MEDS ORDERED: DEXTROSE 5%-WATER - 50 ML IVPB ONE ×2 (11:58→16:54)
[2021-08-28] MEDS: ALBUMIN HUMAN 25% 12.5 GM/50 ML VIAL IV SCH ×3 (12:04→12:06)
[2021-08-28] MEDS: DOCUSATE SODIUM 100 MG CAPSULE (FP) PO SCH (21:10)
[2021-08-29] MEDS ORDERED: PIPERACILLIN/TAZOBACTAM 2.25 GM VIAL IVPB ONE ×3 (00:37→16:34)
[2021-08-29] MEDS ORDERED: DEXTROSE 5%-WATER - 50 ML IVPB ONE ×3 (00:37→16:35)
[2021-08-29] MEDS: PIPERACILLIN/TAZOB 2.25 GM 2.25 GM in DEXTROSE 5%-WATER - 50 ML IVPB SCH ×3 (02:21→17:00)
[2021-08-29 07:09] LABS: BASO % 1.5 % (0-2.0); EOS % 3.6 % (0-4.5); HEMATOCRIT 25.2 % (32.4-45.2); HEMOGLOBIN 8.4 GM/dL (10.7-15.3); LYMPH % 6.8 % (8-40); MCH 32.4 pg (25.7-33.7); MCHC 33.3 g/dl (32.0-36.0); MEAN CELL VOLUME 97.4 fl (80-96); MEAN PLT VOLUME 9.4 fl (7.5-11.1); MONO % 10.5 % (3.8-10.2); NEUT % 77.6 % (42.8-82.8); PLATELET COUNT 80 10^3/uL (134-434); RBC 2.59 M/mm3 (3.60-5.2); RDW 16.6 % (11.6-15.6); WHITE BLOOD COUNT 5.5 K/mm3 (4.0-10.0)
[2021-08-29 07:23] LABS: ALBUMIN 2.4 g/dl (3.4-5.0); CALCIUM 7.7 mg/dL (8.5-10.1)
[2021-08-29 07:26] LABS: CREATININE 4.2 mg/dL (0.55-1.3)
[2021-08-29 07:28] LABS: TOT PROT 5.8 g/dl (6.4-8.2)
[2021-08-29 07:47] LABS: BLOOD UREA NITROGEN 38.4 mg/dL (7-18)
[2021-08-29] MEDS: CALCIUM ACETATE 667 MG CAPSULE (FP) PO SCH ×3 (09:00→16:58)
[2021-08-29] MEDS: CALCITRIOL 0.25 MCG CAPSULE (FP) PO SCH (11:20)
[2021-08-29] MEDS: LACTOBACILLUS ACIDOPHILUS 1 TABLET PO SCH (11:20)
[2021-08-29] MEDS: CALCIUM 500MG/VIT-D 200 UNITS COMBO TABLET (FP) PO SCH (11:21)
[2021-08-29] MEDS ORDERED: VANCOMYCIN/WATER FOR INJ (PEG) 1,000 MG/200 ML BAG IVPB ONE (17:40)
[2021-08-29] MEDS: DOCUSATE SODIUM 100 MG CAPSULE (FP) PO SCH (21:22)
[2021-08-30] MEDS ORDERED: PIPERACILLIN/TAZOBACTAM 2.25 GM VIAL IVPB ONE ×3 (00:55→17:15)
[2021-08-30] MEDS ORDERED: DEXTROSE 5%-WATER - 50 ML IVPB ONE ×3 (00:56→17:15)
[2021-08-30] MEDS: PIPERACILLIN/TAZOB 2.25 GM 2.25 GM in DEXTROSE 5%-WATER - 50 ML IVPB SCH ×3 (01:06→17:30)
[2021-08-30] MEDS ORDERED: EPOETIN ALFA-EPBX 10,000 UNIT/ML VIAL SQ ONE (08:00)
[2021-08-30] MEDS ORDERED: SODIUM CHLORIDE 250 ML IV PRN (08:00)
[2021-08-30] MEDS ORDERED: PARICALCITOL 5 MCG/ML VIAL IVPUSH ONE (08:00)
[2021-08-30] MEDS: CALCIUM ACETATE 667 MG CAPSULE (FP) PO SCH ×3 (09:00→17:30)
[2021-08-30 10:40] LABS: HEMATOCRIT 24.6 % (32.4-45.2); HEMOGLOBIN 8.2 GM/dL (10.7-15.3); MCH 32.4 pg (25.7-33.7); MCHC 33.3 g/dl (32.0-36.0); MEAN CELL VOLUME 97.4 fl (80-96); MEAN PLT VOLUME 9.2 fl (7.5-11.1); PLATELET COUNT 89 10^3/uL (134-434); RBC 2.53 M/mm3 (3.60-5.2); RDW 16.8 % (11.6-15.6)
[2021-08-30 11:06] LABS: CALCIUM 8.4 mg/dL (8.5-10.1)
[2021-08-30 11:07] LABS: BLOOD UREA NITROGEN 48.8 mg/dL (7-18)
[2021-08-30 11:10] LABS: CREATININE 5.4 mg/dL (0.55-1.3)
[2021-08-30] MEDS: CALCIUM 500MG/VIT-D 200 UNITS COMBO TABLET (FP) PO SCH (12:20)
[2021-08-30] MEDS: LACTOBACILLUS ACIDOPHILUS 1 TABLET PO SCH (12:20)
[2021-08-30] MEDS: DOCUSATE SODIUM 100 MG CAPSULE (FP) PO SCH (22:02)
[2021-08-31] MEDS: PIPERACILLIN/TAZOB 2.25 GM 2.25 GM in DEXTROSE 5%-WATER - 50 ML IVPB SCH ×2 (03:07→10:42)
[2021-08-31] MEDS ORDERED: PIPERACILLIN/TAZOBACTAM 2.25 GM VIAL IVPB ONE ×2 (03:07→08:09)
[2021-08-31] MEDS ORDERED: DEXTROSE 5%-WATER - 50 ML IVPB ONE ×2 (03:07→08:09)
[2021-08-31] MEDS: CALCIUM ACETATE 667 MG CAPSULE (FP) PO SCH ×3 (08:27→17:54)
[2021-08-31] MEDS: LACTOBACILLUS ACIDOPHILUS 1 TABLET PO SCH (10:42)
[2021-08-31] MEDS: CALCIUM 500MG/VIT-D 200 UNITS COMBO TABLET (FP) PO SCH (10:42)
[2021-08-31] MEDS: DOCUSATE SODIUM 100 MG CAPSULE (FP) PO SCH (22:34)
[2021-09-01] MEDS ORDERED: PARICALCITOL 5 MCG/ML VIAL IVPUSH ONE (07:00)
[2021-09-01] MEDS ORDERED: EPOETIN ALFA-EPBX 10,000 UNIT/ML VIAL SQ ONE (07:00)
[2021-09-01] MEDS ORDERED: SODIUM CHLORIDE 250 ML IV PRN (07:00)
[2021-09-01] MEDS: CALCIUM ACETATE 667 MG CAPSULE (FP) PO SCH ×3 (08:44→17:33)
[2021-09-01 10:30] LABS: HEMATOCRIT 25.5 % (32.4-45.2); HEMOGLOBIN 8.4 GM/dL (10.7-15.3); MCH 32.2 pg (25.7-33.7); MCHC 32.9 g/dl (32.0-36.0); MEAN CELL VOLUME 97.9 fl (80-96); MEAN PLT VOLUME 8.9 fl (7.5-11.1); PLATELET COUNT 129 10^3/uL (134-434); RBC 2.61 M/mm3 (3.60-5.2); RDW 16.6 % (11.6-15.6)
[2021-09-01 10:42] LABS: CALCIUM 8.8 mg/dL (8.5-10.1)
[2021-09-01 10:43] LABS: BLOOD UREA NITROGEN 46.9 mg/dL (7-18)
[2021-09-01] MEDS: LACTOBACILLUS ACIDOPHILUS 1 TABLET PO SCH (10:45)
[2021-09-01] MEDS: CALCIUM 500MG/VIT-D 200 UNITS COMBO TABLET (FP) PO SCH (10:45)
[2021-09-01] MEDS: VITAMIN B COMP W-C 1 EA TABLET (NEPHRO-VITE) PO SCH (10:45)
[2021-09-01 10:46] LABS: CREATININE 5.4 mg/dL (0.55-1.3)
[2021-09-01] MEDS: VALSARTAN 160 MG TABLET PO SCH (12:18)
[2021-09-01] MEDS: DOCUSATE SODIUM 100 MG CAPSULE (FP) PO SCH (21:40)
[2021-09-01] MEDS: hydrALAZINE HCL 10 MG TABLET PO SCH (21:40)
[2021-09-02] MEDS: LACTOBACILLUS ACIDOPHILUS 1 TABLET PO SCH (09:17)
[2021-09-02] MEDS: VALSARTAN 160 MG TABLET PO SCH (09:17)
[2021-09-02] MEDS: CALCIUM 500MG/VIT-D 200 UNITS COMBO TABLET (FP) PO SCH (09:18)
[2021-09-02] MEDS: hydrALAZINE HCL 10 MG TABLET PO SCH ×2 (09:18→21:20)
[2021-09-02] MEDS: VITAMIN B COMP W-C 1 EA TABLET (NEPHRO-VITE) PO SCH (09:18)
[2021-09-02] MEDS: CALCIUM ACETATE 667 MG CAPSULE (FP) PO SCH ×3 (09:18→16:55)
[2021-09-02] MEDS ORDERED: VANCOMYCIN 1 GRAM (PRE-DOCKED) 1,000 MG/250 ML BAG IVPB ONE (19:00)
[2021-09-02] MEDS: DOCUSATE SODIUM 100 MG CAPSULE (FP) PO SCH (21:20)
[2021-09-03] MEDS: CALCIUM 500MG/VIT-D 200 UNITS COMBO TABLET (FP) PO SCH (09:43)
[2021-09-03] MEDS: LACTOBACILLUS ACIDOPHILUS 1 TABLET PO SCH (09:44)
[2021-09-03] MEDS: VITAMIN B COMP W-C 1 EA TABLET (NEPHRO-VITE) PO SCH (09:44)
[2021-09-03] MEDS: hydrALAZINE HCL 10 MG TABLET PO SCH ×2 (09:49→21:59)
[2021-09-03] MEDS: CALCIUM ACETATE 667 MG CAPSULE (FP) PO SCH ×3 (09:49→17:57)
[2021-09-03] MEDS: VALSARTAN 160 MG TABLET PO SCH (09:50)
[2021-09-03] MEDS: DOCUSATE SODIUM 100 MG CAPSULE (FP) PO SCH ×2 (21:59→22:02)
[2021-09-04] MEDS: CALCIUM ACETATE 667 MG CAPSULE (FP) PO SCH ×3 (08:29→17:22)
[2021-09-04] MEDS: hydrALAZINE HCL 10 MG TABLET PO SCH ×2 (08:30→10:02)
[2021-09-04 08:42] LABS: HEMOGLOBIN 8.3 GM/dL (10.7-15.3); MCH 32.3 pg (25.7-33.7); MCHC 33.2 g/dl (32.0-36.0); MEAN CELL VOLUME 97.4 fl (80-96); MEAN PLT VOLUME 8.8 fl (7.5-11.1); PLATELET COUNT 142 10^3/uL (134-434); RBC 2.57 M/mm3 (3.60-5.2); RDW 16.2 % (11.6-15.6); WHITE BLOOD COUNT 3.6 K/mm3 (4.0-10.0)
[2021-09-04 09:22] LABS: CALCIUM 8.5 mg/dL (8.5-10.1)
[2021-09-04 09:23] LABS: ALBUMIN 2.4 g/dl (3.4-5.0); BLOOD UREA NITROGEN 55.2 mg/dL (7-18)
[2021-09-04 09:26] LABS: CREATININE 5.4 mg/dL (0.55-1.3)
[2021-09-04 09:28] LABS: BILIRUBIN,TOTAL 1.2 mg/dL (0.2-1); TOT PROT 6.1 g/dl (6.4-8.2)
[2021-09-04] MEDS: VITAMIN B COMP W-C 1 EA TABLET (NEPHRO-VITE) PO SCH (10:02)
[2021-09-04] MEDS: VALSARTAN 160 MG TABLET PO SCH (10:02)
[2021-09-04] MEDS: LACTOBACILLUS ACIDOPHILUS 1 TABLET PO SCH (10:02)
[2021-09-04] MEDS: CALCIUM 500MG/VIT-D 200 UNITS COMBO TABLET (FP) PO SCH (10:03)
[2021-09-04 10:07] LABS: ANISOCYTOSIS 0; HELMET CELLS 0; HOWELL-JOLLY BODIES 0; MACROCYTOSIS 0; OVALOCYTE 0; ROULEAU 0; SICKELED CELLS 0; TARGET CELLS 0; TEAR DROP CELLS 0; TOXIC GRANULATION 0
[2021-09-04] MEDS: hydrALAZINE HCL 25 MG TABLET (FP) PO SCH ×2 (14:26→21:40)
[2021-09-04] MEDS: DOCUSATE SODIUM 100 MG CAPSULE (FP) PO SCH (21:42)
[2021-09-05] MEDS: hydrALAZINE HCL 25 MG TABLET (FP) PO SCH ×3 (06:13→21:15)
[2021-09-05] MEDS: LACTOBACILLUS ACIDOPHILUS 1 TABLET PO SCH (09:24)
[2021-09-05] MEDS: VALSARTAN 160 MG TABLET PO SCH (09:24)
[2021-09-05] MEDS: VITAMIN B COMP W-C 1 EA TABLET (NEPHRO-VITE) PO SCH (09:24)
[2021-09-05] MEDS: CALCIUM ACETATE 667 MG CAPSULE (FP) PO SCH ×3 (09:24→17:21)
[2021-09-05] MEDS: CALCIUM 500MG/VIT-D 200 UNITS COMBO TABLET (FP) PO SCH (09:24)
[2021-09-05] MEDS ORDERED: VANCOMYCIN 1 GRAM (PRE-DOCKED) 1,000 MG/250 ML BAG IVPB ONE ×2 (12:16→14:00)
[2021-09-05] MEDS ORDERED: VALSARTAN 160 MG TABLET PO ONE (13:35)
[2021-09-05] MEDS: DOCUSATE SODIUM 100 MG CAPSULE (FP) PO SCH (21:15)
[2021-09-05 22:26] VITALS: BMI 24.5
[2021-09-06] MEDS: hydrALAZINE HCL 25 MG TABLET (FP) PO SCH (06:31)
[2021-09-06] MEDS ORDERED: hydrALAZINE HCL 25 MG TABLET (FP) PO SCH (06:34)
[2021-09-06] MEDS ORDERED: SODIUM CHLORIDE 250 ML IV PRN (07:17)
[2021-09-06 08:59] LABS: HEMATOCRIT 25.3 % (32.4-45.2); HEMOGLOBIN 8.2 GM/dL (10.7-15.3); MCHC 32.5 g/dl (32.0-36.0); MEAN CELL VOLUME 98.4 fl (80-96); MEAN PLT VOLUME 8.8 fl (7.5-11.1); PLATELET COUNT 129 10^3/uL (134-434); RBC 2.57 M/mm3 (3.60-5.2); RDW 16.5 % (11.6-15.6); WHITE BLOOD COUNT 5.1 K/mm3 (4.0-10.0)
[2021-09-06] MEDS ORDERED: EPOETIN ALFA-EPBX 10,000 UNIT/ML VIAL SQ ONE (09:00)
[2021-09-06] MEDS: hydrALAZINE HCL 50 MG TABLET (FP) PO SCH ×4 (09:00→22:02)
[2021-09-06 09:27] LABS: CALCIUM 8.3 mg/dL (8.5-10.1)
[2021-09-06 09:29] LABS: BLOOD UREA NITROGEN 54.2 mg/dL (7-18)
[2021-09-06 09:31] LABS: CREATININE 5.5 mg/dL (0.55-1.3)
[2021-09-06] MEDS: AMINO ACIDS/PROTEIN HYDROLYS 30 ML LIQUID.PKT PO SCH ×2 (12:12→12:24)
[2021-09-06] MEDS: CALCIUM 500MG/VIT-D 200 UNITS COMBO TABLET (FP) PO SCH (12:13)
[2021-09-06] MEDS: VALSARTAN 160 MG TABLET PO SCH (12:13)
[2021-09-06] MEDS: CALCIUM ACETATE 667 MG CAPSULE (FP) PO SCH ×4 (12:14→17:25)
[2021-09-06] MEDS: VITAMIN B COMP W-C 1 EA TABLET (NEPHRO-VITE) PO SCH (12:14)
[2021-09-06] MEDS: LACTOBACILLUS ACIDOPHILUS 1 TABLET PO SCH (12:14)
[2021-09-06] MEDS: DOCUSATE SODIUM 100 MG CAPSULE (FP) PO SCH (22:04)
[2021-09-07] MEDS: hydrALAZINE HCL 50 MG TABLET (FP) PO SCH ×2 (06:42→13:49)
[2021-09-07] MEDS: CALCIUM ACETATE 667 MG CAPSULE (FP) PO SCH ×3 (09:46→18:03)
[2021-09-07] MEDS: LACTOBACILLUS ACIDOPHILUS 1 TABLET PO SCH (09:47)
[2021-09-07] MEDS: VALSARTAN 160 MG TABLET PO SCH (09:47)
[2021-09-07] MEDS: CALCIUM 500MG/VIT-D 200 UNITS COMBO TABLET (FP) PO SCH (09:47)
[2021-09-07] MEDS: VITAMIN B COMP W-C 1 EA TABLET (NEPHRO-VITE) PO SCH (09:47)
[2021-09-07] MEDS: AMINO ACIDS/PROTEIN HYDROLYS 30 ML LIQUID.PKT PO SCH (09:50)
[2021-09-07] MEDS: DOCUSATE SODIUM 100 MG CAPSULE (FP) PO SCH (22:11)
[2021-09-08] MEDS: hydrALAZINE HCL 50 MG TABLET (FP) PO SCH ×3 (00:36→15:32)
[2021-09-08] MEDS ORDERED: ACETAMINOPHEN 325 MG TABLET (FP) PO PRN (02:25)
[2021-09-08] MEDS ORDERED: AMINO ACIDS/PROTEIN HYDROLYS 30 ML LIQUID.PKT PO SCH (08:00)
[2021-09-08] MEDS ORDERED: SODIUM CHLORIDE 250 ML IV PRN (08:12)
[2021-09-08] MEDS ORDERED: EPOETIN ALFA-EPBX 20,000 UNIT/ML VIAL SQ ONE (08:30)
[2021-09-08 10:00] LABS: HEMATOCRIT 26.3 % (32.4-45.2); HEMOGLOBIN 8.6 GM/dL (10.7-15.3); MCH 32.4 pg (25.7-33.7); MCHC 32.8 g/dl (32.0-36.0); MEAN CELL VOLUME 98.9 fl (80-96); MEAN PLT VOLUME 9.3 fl (7.5-11.1); PLATELET COUNT 126 10^3/uL (134-434); RBC 2.66 M/mm3 (3.60-5.2); RDW 16.4 % (11.6-15.6); WHITE BLOOD COUNT 4.4 K/mm3 (4.0-10.0)
[2021-09-08] MEDS ORDERED: VITAMIN B COMP W-C 1 EA TABLET (NEPHRO-VITE) PO SCH (10:00)
[2021-09-08] MEDS ORDERED: CALCIUM 500MG/VIT-D 200 UNITS COMBO TABLET (FP) PO SCH (10:00)
[2021-09-08] MEDS ORDERED: LACTOBACILLUS ACIDOPHILUS 1 TABLET PO SCH (10:00)
[2021-09-08] MEDS ORDERED: VALSARTAN 160 MG TABLET PO SCH (10:00)
[2021-09-08 10:09] LABS: CALCIUM 8.7 mg/dL (8.5-10.1)
[2021-09-08 10:10] LABS: BLOOD UREA NITROGEN 54.2 mg/dL (7-18)
[2021-09-08 10:14] LABS: CREATININE 5.4 mg/dL (0.55-1.3)
[2021-09-08] MEDS: CALCIUM ACETATE 667 MG CAPSULE (FP) PO SCH ×2 (10:47→13:36)
[2021-09-08 13:43] VITALS: TEMP 98.2
[2021-09-08 15:35] VITALS: BP 121/70; PULSE 68
[2021-09-08] MEDS ORDERED: DOCUSATE SODIUM 100 MG CAPSULE (FP) PO SCH (22:00)
== END 2021-09-08 16:00 | DRG 853 ==
LOC: JER 12:27 → JERBED 15:34 → J4W 22:57 → J5S 09-07 18:32
PROVIDERS: ADMIT Family Medicine; ATTEND Family Medicine
PROC: 0JBQ0ZZ Excision of Right Foot Subcutaneous Tissue and Fascia, Open Approach (ICD-10-PCS; principal; 2021-08-24)
PROC: 0HBRXZZ Excision of Toe Nail, External Approach (ICD-10-PCS; 2021-09-06)
PROC: 5A1D70Z Performance of Urinary Filtration, Intermittent, Less than 6 Hours Per Day (ICD-10-PCS; 2021-09-08)
DX: A41.89 Other specified sepsis (principal); N18.6 End stage renal disease; I13.2 Hypertensive heart and chronic kidney disease with heart failure and with stage 5 chronic kidney disease, or end stage renal disease; L97.409 Non-pressure chronic ulcer of unspecified heel and midfoot with unspecified severity; I24.8 Other forms of acute ischemic heart disease; E11.51 Type 2 diabetes mellitus with diabetic peripheral angiopathy without gangrene; R65.20 Severe sepsis without septic shock; E83.51 Hypocalcemia; E11.621 Type 2 diabetes mellitus with foot ulcer; R33.9 Retention of urine, unspecified; I50.9 Heart failure, unspecified; R00.1 Bradycardia, unspecified; I95.9 Hypotension, unspecified; D69.6 Thrombocytopenia, unspecified; B35.1 Tinea unguium; D72.819 Decreased white blood cell count, unspecified; K21.9 Gastro-esophageal reflux disease without esophagitis; D63.1 Anemia in chronic kidney disease; E78.5 Hyperlipidemia, unspecified
CPT/HCPCS: 36415; 36600; 71045-TC-FY; 73630-TC-RT-FY; 73721-RT-TC; 74018-TC-FY; 76856-TC; 80048; 80053; 82607; 82728; 82747; 82803; 82962; 83036; 83540; 83550; 83615; 83735; 84100; 84439; 84443; 84484; 85014; 85025; 85027; 85045; 85384; 85610; 85651; 85730; 86140; 86803; 87040; 87070; 87076; 87205; 87340; 93005; 93010; 97116-GP; 97162-GP; 99285-25; C9803-CS; G0480; J1644; Q5106; U0003; U0005

== ENCOUNTER 2021-12-12 09:22 | Inpatient (IN) | payer OTHER, BC ==
[2021-12-12] MEDS ORDERED: ACETAMINOPHEN 1000 MG/100 ML BAG IVPB ONE (09:59)
[2021-12-12] MEDS ORDERED: VANCOMYCIN 1,000 MG in DEXTROSE 5%-WATER - 250 ML IVPB ONE (10:14)
[2021-12-12] MEDS ORDERED: PIPERACILLIN/TAZOBACTAM 4.5 GM VIAL IVPB ONE (10:14)
[2021-12-12] MEDS ORDERED: PIPERACILLIN/TAZOB 3.375 GM 3.375 GM/50 ML BAG IVPB ONE (10:39)
[2021-12-12] MEDS ORDERED: ACETAMINOPHEN INJECTION 100 ML IVPB ONE (10:39)
[2021-12-12] MEDS ORDERED: VANCOMYCIN/WATER FOR INJ (PEG) 1,000 MG/200 ML BAG IVPB ONE (10:39)
[2021-12-12 11:18] LABS: VENOUS BASE EXCESS -7.9 mmol/L (-2-2); VENOUS O2 SATURATION 94.6 % (70-80); VENOUS PH 7.341 (7.310-7.410)
[2021-12-12 12:37] LABS: CHLORIDE 102 mmol/L (98-107); EOS % 5.9 % (0-4.5); HEMATOCRIT 27.3 % (32.4-45.2); HEMOGLOBIN 8.9 GM/dL (10.7-15.3); INR 1.09 (0.83-1.09); LYMPH % 3.3 % (8-40); MCH 32.6 pg (25.7-33.7); MCHC 32.8 g/dl (32.0-36.0); MEAN CELL VOLUME 99.4 fl (80-96); MEAN PLT VOLUME 8.7 fl (7.5-11.1); NEUT % 83.8 % (42.8-82.8); PLATELET COUNT 98 10^3/uL (134-434); PROTHROMBIN TIME (PATIENT) 12.5 SEC (9.7-13.0); RBC 2.75 M/mm3 (3.60-5.2); RDW 17.7 % (11.6-15.6); SODIUM 136 mmol/L (136-145); WHITE BLOOD COUNT 5.2 K/mm3 (4.0-10.0)
[2021-12-12 12:39] LABS: ACTIVATED PTT 37.3 SECONDS (25.2-36.5); CALCIUM 8.1 mg/dL (8.5-10.1)
[2021-12-12 12:40] LABS: ALBUMIN 3.2 g/dl (3.4-5.0); ANION GAP 15 MMOL/L (8-16); CO2 19 mmol/L (21-32); GLUCOSE,RANDOM 71 mg/dL (74-106); MAGNESIUM 2.8 mg/dL (1.8-2.4)
[2021-12-12 12:43] LABS: PHOSPHOROUS 8.1 mg/dL (2.5-4.9); SGOT/AST 38 U/L (15-37); SGPT/ALT 45 U/L (13-61)
[2021-12-12 12:44] LABS: BILIRUBIN,TOTAL 0.5 mg/dL (0.2-1); TOT PROT 6.8 g/dl (6.4-8.2)
[2021-12-12 12:46] LABS: ALK PHOS 156 U/L (45-117)
[2021-12-12 13:01] LABS: BLOOD UREA NITROGEN 146.2 mg/dL (7-18); CREATININE 7.6 mg/dL (0.55-1.3)
[2021-12-12] MEDS ORDERED: SODIUM CHLORIDE 250 ML IV PRN (14:43)
[2021-12-12] MEDS ORDERED: SODIUM CHLORIDE 0.45% 1,000 ML IV SCH (16:30)
[2021-12-12] MEDS: CALCIUM ACETATE 667 MG CAPSULE (FP) PO SCH (17:31)
[2021-12-12] MEDS ORDERED: EPOETIN ALFA-EPBX 10,000 UNIT/ML VIAL SQ ONE (18:00)
[2021-12-12] MEDS: HEPARIN NA (PORCINE) 5,000 UNITS/ML 1ML VIAL SQ SCH (21:51)
[2021-12-12] MEDS: POLYETHYLENE GLYCOL (HEALTHYLAX) 3350 17 GM PACKET PO SCH ×2 (21:51→21:59)
[2021-12-12] MEDS: hydrALAZINE HCL 25 MG TABLET (FP) PO SCH (21:51)
[2021-12-12] MEDS: PANTOPRAZOLE 40 MG TABLET PO SCH (21:51)
[2021-12-12] MEDS: PIPERACILLIN/TAZOB 2.25 GM 2.25 GM in DEXTROSE 5%-WATER - 50 ML IVPB SCH (22:31)
[2021-12-13] MEDS: PIPERACILLIN/TAZOB 2.25 GM 2.25 GM in DEXTROSE 5%-WATER - 50 ML IVPB SCH ×3 (00:58→17:16)
[2021-12-13] MEDS: POLYETHYLENE GLYCOL (HEALTHYLAX) 3350 17 GM PACKET PO SCH ×3 (06:42→22:40)
[2021-12-13] MEDS: hydrALAZINE HCL 25 MG TABLET (FP) PO SCH ×3 (06:42→22:19)
[2021-12-13] MEDS: CALCIUM ACETATE 667 MG CAPSULE (FP) PO SCH ×3 (08:18→17:16)
[2021-12-13 09:08] LABS: INR 1.14 (0.83-1.09); PROTHROMBIN TIME (PATIENT) 13.1 SEC (9.7-13.0)
[2021-12-13 09:09] LABS: BASO % 1.3 % (0-2.0); EOS % 2.9 % (0-4.5); HEMATOCRIT 25.8 % (32.4-45.2); HEMOGLOBIN 8.5 GM/dL (10.7-15.3); LYMPH % 7.1 % (8-40); MCH 32.9 pg (25.7-33.7); MEAN CELL VOLUME 99.5 fl (80-96); MEAN PLT VOLUME 8.1 fl (7.5-11.1); MONO % 8.6 % (3.8-10.2); NEUT % 80.1 % (42.8-82.8); PLATELET COUNT 83 10^3/uL (134-434); RBC 2.59 M/mm3 (3.60-5.2); WHITE BLOOD COUNT 4.4 K/mm3 (4.0-10.0)
[2021-12-13 09:34] LABS: ALBUMIN 2.8 g/dl (3.4-5.0)
[2021-12-13 09:35] LABS: CALCIUM 7.9 mg/dL (8.5-10.1)
[2021-12-13 09:36] LABS: MAGNESIUM 2.3 mg/dL (1.8-2.4)
[2021-12-13 09:37] LABS: CREATININE 4.7 mg/dL (0.55-1.3)
[2021-12-13 09:39] LABS: BILIRUBIN,TOTAL 0.6 mg/dL (0.2-1); TOT PROT 6.3 g/dl (6.4-8.2)
[2021-12-13 09:45] LABS: BLOOD UREA NITROGEN 66.3 mg/dL (7-18)
[2021-12-13] MEDS: PANTOPRAZOLE 40 MG TABLET PO SCH ×2 (12:19→22:19)
[2021-12-13] MEDS: VALSARTAN 160 MG TABLET PO SCH (12:19)
[2021-12-13] MEDS: HEPARIN NA (PORCINE) 5,000 UNITS/ML 1ML VIAL SQ SCH ×2 (12:19→22:19)
[2021-12-13] MEDS ORDERED: SODIUM CHLORIDE 250 ML IV PRN (13:12)
[2021-12-13] MEDS: MUPIROCIN 2% TOPICAL OINTMENT 22 GM TUBE TP SCH (17:16)
[2021-12-14] MEDS: PIPERACILLIN/TAZOB 2.25 GM 2.25 GM in DEXTROSE 5%-WATER - 50 ML IVPB SCH ×2 (01:12→09:39)
[2021-12-14] MEDS: hydrALAZINE HCL 25 MG TABLET (FP) PO SCH ×3 (05:51→22:00)
[2021-12-14] MEDS: POLYETHYLENE GLYCOL (HEALTHYLAX) 3350 17 GM PACKET PO SCH ×4 (05:51→22:10)
[2021-12-14] MEDS: AMINO ACIDS/PROTEIN HYDROLYS 30 ML LIQUID.PKT PO SCH (09:39)
[2021-12-14] MEDS: PANTOPRAZOLE 40 MG TABLET PO SCH ×2 (09:40→22:00)
[2021-12-14] MEDS: HEPARIN NA (PORCINE) 5,000 UNITS/ML 1ML VIAL SQ SCH ×2 (09:40→22:00)
[2021-12-14] MEDS: VITAMIN B COMP W-C 1 EA TABLET (NEPHRO-VITE) PO SCH (09:40)
[2021-12-14] MEDS: CALCIUM ACETATE 667 MG CAPSULE (FP) PO SCH ×3 (09:41→17:57)
[2021-12-14] MEDS: VALSARTAN 160 MG TABLET PO SCH (09:41)
[2021-12-14] MEDS: MUPIROCIN 2% TOPICAL OINTMENT 22 GM TUBE TP SCH (09:42)
[2021-12-14] MEDS ORDERED: EPOETIN ALFA-EPBX 10,000 UNIT/ML VIAL IVPUSH ONE (13:17)
[2021-12-14 13:47] LABS: HEMATOCRIT 27.8 % (32.4-45.2); HEMOGLOBIN 9.2 GM/dL (10.7-15.3); MCH 33.2 pg (25.7-33.7); MCHC 33.2 g/dl (32.0-36.0); MEAN CELL VOLUME 99.8 fl (80-96); PLATELET COUNT 83 10^3/uL (134-434); RBC 2.79 M/mm3 (3.60-5.2); RDW 17.5 % (11.6-15.6); WHITE BLOOD COUNT 5.3 K/mm3 (4.0-10.0)
[2021-12-14 14:11] LABS: CALCIUM 8.2 mg/dL (8.5-10.1)
[2021-12-14 14:12] LABS: ALBUMIN 2.8 g/dl (3.4-5.0)
[2021-12-14 14:15] LABS: BILIRUBIN,TOTAL 0.6 mg/dL (0.2-1); TOT PROT 6.7 g/dl (6.4-8.2)
[2021-12-15] MEDS: POLYETHYLENE GLYCOL (HEALTHYLAX) 3350 17 GM PACKET PO SCH ×3 (05:10→21:07)
[2021-12-15] MEDS: hydrALAZINE HCL 25 MG TABLET (FP) PO SCH ×3 (05:10→20:59)
[2021-12-15] MEDS: ACETAMINOPHEN 325 MG TABLET (FP) PO PRN (06:40)
[2021-12-15] MEDS: AMINO ACIDS/PROTEIN HYDROLYS 30 ML LIQUID.PKT PO SCH (08:40)
[2021-12-15] MEDS: CALCIUM ACETATE 667 MG CAPSULE (FP) PO SCH ×3 (08:40→17:48)
[2021-12-15] MEDS: PANTOPRAZOLE 40 MG TABLET PO SCH ×2 (10:21→20:59)
[2021-12-15] MEDS: VITAMIN B COMP W-C 1 EA TABLET (NEPHRO-VITE) PO SCH (10:21)
[2021-12-15] MEDS: VALSARTAN 160 MG TABLET PO SCH (10:21)
[2021-12-15] MEDS: MUPIROCIN 2% TOPICAL OINTMENT 22 GM TUBE TP SCH (10:22)
[2021-12-15] MEDS: HEPARIN NA (PORCINE) 5,000 UNITS/ML 1ML VIAL SQ SCH ×2 (10:22→21:00)
[2021-12-16] MEDS: hydrALAZINE HCL 25 MG TABLET (FP) PO SCH ×3 (05:24→21:30)
[2021-12-16] MEDS: POLYETHYLENE GLYCOL (HEALTHYLAX) 3350 17 GM PACKET PO SCH ×3 (05:24→21:30)
[2021-12-16] MEDS: AMINO ACIDS/PROTEIN HYDROLYS 30 ML LIQUID.PKT PO SCH ×2 (07:58→08:00)
[2021-12-16] MEDS: CALCIUM ACETATE 667 MG CAPSULE (FP) PO SCH ×3 (07:58→17:46)
[2021-12-16] MEDS ORDERED: SODIUM CHLORIDE 250 ML IV PRN (08:49)
[2021-12-16] MEDS ORDERED: EPOETIN ALFA-EPBX 10,000 UNIT/ML VIAL SQ ONE (09:15)
[2021-12-16 09:43] LABS: HEMATOCRIT 27.5 % (32.4-45.2); MCH 32.8 pg (25.7-33.7); MCHC 32.7 g/dl (32.0-36.0); MEAN CELL VOLUME 100.4 fl (80-96); MEAN PLT VOLUME 9.4 fl (7.5-11.1); PLATELET COUNT 101 10^3/uL (134-434); RBC 2.74 M/mm3 (3.60-5.2); RDW 17.5 % (11.6-15.6); WHITE BLOOD COUNT 5.4 K/mm3 (4.0-10.0)
[2021-12-16 10:02] LABS: CALCIUM 8.5 mg/dL (8.5-10.1)
[2021-12-16 10:03] LABS: BLOOD UREA NITROGEN 64.7 mg/dL (7-18)
[2021-12-16 10:06] LABS: CREATININE 5.7 mg/dL (0.55-1.3)
[2021-12-16] MEDS: VALSARTAN 160 MG TABLET PO SCH (12:03)
[2021-12-16] MEDS: PANTOPRAZOLE 40 MG TABLET PO SCH ×2 (12:03→21:30)
[2021-12-16] MEDS: HEPARIN NA (PORCINE) 5,000 UNITS/ML 1ML VIAL SQ SCH ×2 (12:03→21:30)
[2021-12-16] MEDS: VITAMIN B COMP W-C 1 EA TABLET (NEPHRO-VITE) PO SCH (12:03)
[2021-12-16] MEDS: MUPIROCIN 2% TOPICAL OINTMENT 22 GM TUBE TP SCH (12:04)
[2021-12-17] MEDS: POLYETHYLENE GLYCOL (HEALTHYLAX) 3350 17 GM PACKET PO SCH ×3 (05:45→21:41)
[2021-12-17] MEDS: hydrALAZINE HCL 25 MG TABLET (FP) PO SCH ×3 (06:53→21:41)
[2021-12-17] MEDS: VALSARTAN 160 MG TABLET PO SCH (10:40)
[2021-12-17] MEDS: MUPIROCIN 2% TOPICAL OINTMENT 22 GM TUBE TP SCH (10:40)
[2021-12-17] MEDS: AMINO ACIDS/PROTEIN HYDROLYS 30 ML LIQUID.PKT PO SCH (10:40)
[2021-12-17] MEDS: CALCIUM ACETATE 667 MG CAPSULE (FP) PO SCH ×3 (10:41→16:44)
[2021-12-17] MEDS: HEPARIN NA (PORCINE) 5,000 UNITS/ML 1ML VIAL SQ SCH ×2 (10:42→21:41)
[2021-12-17] MEDS: VITAMIN B COMP W-C 1 EA TABLET (NEPHRO-VITE) PO SCH (10:43)
[2021-12-17] MEDS: PANTOPRAZOLE 40 MG TABLET PO SCH ×2 (10:43→21:43)
[2021-12-17] MEDS ORDERED: BISACODYL 5 MG TABLET.DR (FP) PO ONE (12:48)
[2021-12-17 13:54] VITALS: BMI 27.3
[2021-12-17] MEDS ORDERED: PEG 3350/NA SULF BICARB CL/KCL 4000 ML SOLN.RECON PO ONE (16:00)
[2021-12-17] MEDS: amLODIPine BESYLATE 5 MG TABLET (FP) PO SCH (16:47)
[2021-12-18] MEDS: POLYETHYLENE GLYCOL (HEALTHYLAX) 3350 17 GM PACKET PO SCH ×2 (06:21→13:02)
[2021-12-18] MEDS: hydrALAZINE HCL 25 MG TABLET (FP) PO SCH ×4 (06:23→22:00)
[2021-12-18 09:12] LABS: BASO % 1.4 % (0-2.0); EOS % 7.1 % (0-4.5); HEMATOCRIT 29.2 % (32.4-45.2); HEMOGLOBIN 9.4 GM/dL (10.7-15.3); LYMPH % 6.3 % (8-40); MCH 32.6 pg (25.7-33.7); MCHC 32.4 g/dl (32.0-36.0); MEAN CELL VOLUME 100.8 fl (80-96); MONO % 7.8 % (3.8-10.2); NEUT % 77.4 % (42.8-82.8); PLATELET COUNT 116 10^3/uL (134-434); RDW 17.1 % (11.6-15.6); WHITE BLOOD COUNT 5.1 K/mm3 (4.0-10.0)
[2021-12-18] MEDS: VITAMIN B COMP W-C 1 EA TABLET (NEPHRO-VITE) PO SCH (09:30)
[2021-12-18] MEDS: AMINO ACIDS/PROTEIN HYDROLYS 30 ML LIQUID.PKT PO SCH ×2 (09:30→09:37)
[2021-12-18] MEDS: CALCIUM ACETATE 667 MG CAPSULE (FP) PO SCH ×3 (09:30→16:31)
[2021-12-18] MEDS: VALSARTAN 160 MG TABLET PO SCH (09:31)
[2021-12-18] MEDS: HEPARIN NA (PORCINE) 5,000 UNITS/ML 1ML VIAL SQ SCH (09:31)
[2021-12-18] MEDS: amLODIPine BESYLATE 5 MG TABLET (FP) PO SCH (09:31)
[2021-12-18] MEDS: PANTOPRAZOLE 40 MG TABLET PO SCH ×2 (09:31→22:00)
[2021-12-18] MEDS: MUPIROCIN 2% TOPICAL OINTMENT 22 GM TUBE TP SCH (09:31)
[2021-12-18 09:34] LABS: ALBUMIN 2.8 g/dl (3.4-5.0); CALCIUM 9.2 mg/dL (8.5-10.1)
[2021-12-18 09:37] LABS: CREATININE 5.3 mg/dL (0.55-1.3)
[2021-12-18 09:39] LABS: BILIRUBIN,TOTAL 0.9 mg/dL (0.2-1); TOT PROT 6.3 g/dl (6.4-8.2)
[2021-12-18] MEDS ORDERED: TETRACAINE/BENZOCAINE/BUTAMBEN 20 GM SPR TP ONE (12:05)
[2021-12-19] MEDS: hydrALAZINE HCL 25 MG TABLET (FP) PO SCH ×3 (06:52→21:07)
[2021-12-19] MEDS: CALCIUM ACETATE 667 MG CAPSULE (FP) PO SCH ×3 (07:57→17:05)
[2021-12-19] MEDS: AMINO ACIDS/PROTEIN HYDROLYS 30 ML LIQUID.PKT PO SCH (07:58)
[2021-12-19 09:28] LABS: BASO % 1.6 % (0-2.0); HEMATOCRIT 28.8 % (32.4-45.2); HEMOGLOBIN 9.6 GM/dL (10.7-15.3); LYMPH % 7.2 % (8-40); MCH 33.5 pg (25.7-33.7); MCHC 33.4 g/dl (32.0-36.0); MEAN CELL VOLUME 100.4 fl (80-96); MEAN PLT VOLUME 8.5 fl (7.5-11.1); MONO % 7.3 % (3.8-10.2); NEUT % 77.9 % (42.8-82.8); PLATELET COUNT 115 10^3/uL (134-434); RBC 2.87 M/mm3 (3.60-5.2); RDW 17.1 % (11.6-15.6); RETICULOCYTES 2.27 % (0.5-1.5); WHITE BLOOD COUNT 5.4 K/mm3 (4.0-10.0)
[2021-12-19] MEDS: amLODIPine BESYLATE 5 MG TABLET (FP) PO SCH (09:48)
[2021-12-19] MEDS: VITAMIN B COMP W-C 1 EA TABLET (NEPHRO-VITE) PO SCH (09:48)
[2021-12-19] MEDS: POLYETHYLENE GLYCOL (HEALTHYLAX) 3350 17 GM PACKET PO SCH (09:48)
[2021-12-19] MEDS: VALSARTAN 160 MG TABLET PO SCH (09:48)
[2021-12-19] MEDS: PANTOPRAZOLE 40 MG TABLET PO SCH ×3 (09:48→21:07)
[2021-12-19 09:53] LABS: BLOOD UREA NITROGEN 56.2 mg/dL (7-18); CALCIUM 9.2 mg/dL (8.5-10.1)
[2021-12-19 09:56] LABS: CREATININE 6.2 mg/dL (0.55-1.3)
[2021-12-19] MEDS ORDERED: EPOETIN ALFA-EPBX 10,000 UNIT/ML VIAL IVPUSH ONE (10:00)
[2021-12-19] MEDS ORDERED: SODIUM CHLORIDE 250 ML IV PRN (10:00)
[2021-12-19] MEDS: MUPIROCIN 2% TOPICAL OINTMENT 22 GM TUBE TP SCH (13:23)
[2021-12-20] MEDS: hydrALAZINE HCL 25 MG TABLET (FP) PO SCH ×3 (05:21→21:50)
[2021-12-20 08:03] LABS: BASO % 1.3 % (0-2.0); EOS % 5.7 % (0-4.5); HEMATOCRIT 29.7 % (32.4-45.2); HEMOGLOBIN 9.7 GM/dL (10.7-15.3); MCH 32.9 pg (25.7-33.7); MCHC 32.6 g/dl (32.0-36.0); MEAN CELL VOLUME 100.9 fl (80-96); MEAN PLT VOLUME 8.7 fl (7.5-11.1); MONO % 9.3 % (3.8-10.2); NEUT % 71.7 % (42.8-82.8); PLATELET COUNT 113 10^3/uL (134-434); RBC 2.95 M/mm3 (3.60-5.2); RDW 17.3 % (11.6-15.6); RETICULOCYTES 2.93 % (0.5-1.5); WHITE BLOOD COUNT 4.7 K/mm3 (4.0-10.0)
[2021-12-20 08:20] LABS: BLOOD UREA NITROGEN 37.4 mg/dL (7-18); CALCIUM 8.8 mg/dL (8.5-10.1)
[2021-12-20] MEDS: CALCIUM ACETATE 667 MG CAPSULE (FP) PO SCH ×3 (09:00→16:34)
[2021-12-20] MEDS ORDERED: ONDANSETRON *ODT* 4 MG TABLET SL ONE (09:00)
[2021-12-20] MEDS: AMINO ACIDS/PROTEIN HYDROLYS 30 ML LIQUID.PKT PO SCH (11:10)
[2021-12-20] MEDS: PANTOPRAZOLE 40 MG TABLET PO SCH ×2 (11:11→21:51)
[2021-12-20] MEDS: POLYETHYLENE GLYCOL (HEALTHYLAX) 3350 17 GM PACKET PO SCH (11:11)
[2021-12-20] MEDS: amLODIPine BESYLATE 5 MG TABLET (FP) PO SCH (11:11)
[2021-12-20] MEDS: VALSARTAN 160 MG TABLET PO SCH (11:11)
[2021-12-20] MEDS: MUPIROCIN 2% TOPICAL OINTMENT 22 GM TUBE TP SCH (11:11)
[2021-12-20] MEDS: VITAMIN B COMP W-C 1 EA TABLET (NEPHRO-VITE) PO SCH (11:11)
[2021-12-20] MEDS ORDERED: ONDANSETRON *ODT* 4 MG TABLET SL PRN (13:40)
[2021-12-20] MEDS ORDERED: SODIUM CHLORIDE 250 ML IV PRN (16:20)
[2021-12-21] MEDS: hydrALAZINE HCL 25 MG TABLET (FP) PO SCH ×3 (05:43→21:58)
[2021-12-21] MEDS ORDERED: EPOETIN ALFA-EPBX 10,000 UNIT/ML VIAL IVPUSH ONE (08:00)
[2021-12-21 10:35] LABS: HEMATOCRIT 27.7 % (32.4-45.2); HEMOGLOBIN 9.2 GM/dL (10.7-15.3); MCH 33.7 pg (25.7-33.7); MCHC 33.2 g/dl (32.0-36.0); MEAN CELL VOLUME 101.3 fl (80-96); MEAN PLT VOLUME 8.5 fl (7.5-11.1); PLATELET COUNT 102 10^3/uL (134-434); RBC 2.73 M/mm3 (3.60-5.2); RDW 16.9 % (11.6-15.6); WHITE BLOOD COUNT 4.8 K/mm3 (4.0-10.0)
[2021-12-21 11:40] LABS: BILIRUBIN,TOTAL 0.6 mg/dL (0.2-1)
[2021-12-21 11:47] LABS: CALCIUM 8.5 mg/dL (8.5-10.1)
[2021-12-21 11:48] LABS: BLOOD UREA NITROGEN 45.4 mg/dL (7-18)
[2021-12-21 11:50] LABS: CREATININE 6.4 mg/dL (0.55-1.3)
[2021-12-21 11:51] LABS: TOT PROT 6.4 g/dl (6.4-8.2)
[2021-12-21] MEDS: AMINO ACIDS/PROTEIN HYDROLYS 30 ML LIQUID.PKT PO SCH (11:53)
[2021-12-21] MEDS: CALCIUM ACETATE 667 MG CAPSULE (FP) PO SCH ×3 (11:53→16:52)
[2021-12-21] MEDS: VALSARTAN 160 MG TABLET PO SCH (11:53)
[2021-12-21] MEDS: VITAMIN B COMP W-C 1 EA TABLET (NEPHRO-VITE) PO SCH (11:53)
[2021-12-21] MEDS: POLYETHYLENE GLYCOL (HEALTHYLAX) 3350 17 GM PACKET PO SCH (11:53)
[2021-12-21] MEDS: PANTOPRAZOLE 40 MG TABLET PO SCH ×2 (11:54→21:58)
[2021-12-21] MEDS: amLODIPine BESYLATE 5 MG TABLET (FP) PO SCH (11:54)
[2021-12-21] MEDS: MUPIROCIN 2% TOPICAL OINTMENT 22 GM TUBE TP SCH (15:10)
[2021-12-21] MEDS ORDERED: METOCLOPRAMIDE HCL INJECTION 10 MG/2 ML VIAL IVPUSH ONE (15:20)
[2021-12-21] MEDS ORDERED: ONDANSETRON 4 MG/2 ML VIAL IVPB PRN (15:22)
[2021-12-21] MEDS: ACETAMINOPHEN 325 MG TABLET (FP) PO PRN (20:35)
[2021-12-21] MEDS ORDERED: ACETAMINOPHEN 1000 MG/100 ML BAG IVPB ONE (22:08)
[2021-12-22] MEDS: hydrALAZINE HCL 25 MG TABLET (FP) PO SCH ×2 (05:36→14:10)
[2021-12-22 07:08] VITALS: RESP 20
[2021-12-22] MEDS ORDERED: METOCLOPRAMIDE HCL INJECTION 10 MG/2 ML VIAL IVPUSH ONE (09:43)
[2021-12-22] MEDS: AMINO ACIDS/PROTEIN HYDROLYS 30 ML LIQUID.PKT PO SCH (10:04)
[2021-12-22] MEDS: VITAMIN B COMP W-C 1 EA TABLET (NEPHRO-VITE) PO SCH (10:04)
[2021-12-22] MEDS: CALCIUM ACETATE 667 MG CAPSULE (FP) PO SCH ×2 (10:04→11:44)
[2021-12-22] MEDS: VALSARTAN 160 MG TABLET PO SCH (10:05)
[2021-12-22] MEDS: PANTOPRAZOLE 40 MG TABLET PO SCH (10:05)
[2021-12-22] MEDS: amLODIPine BESYLATE 5 MG TABLET (FP) PO SCH (10:05)
[2021-12-22] MEDS: POLYETHYLENE GLYCOL (HEALTHYLAX) 3350 17 GM PACKET PO SCH (10:07)
[2021-12-22] MEDS: MUPIROCIN 2% TOPICAL OINTMENT 22 GM TUBE TP SCH (11:44)
[2021-12-22 14:13] VITALS: PULSE 63; TEMP 98.7
[2021-12-22 14:14] VITALS: BP 152/71
[2021-12-22] MEDS ORDERED: SODIUM CHLORIDE 250 ML IV PRN (15:32)
[2021-12-23] MEDS ORDERED: EPOETIN ALFA-EPBX 10,000 UNIT/ML VIAL IVPUSH ONE (15:32)
== END 2021-12-22 15:52 | disposition home health service (06) | DRG 393 ==
LOC: JER 09:22 → JERBED 14:34 → J7W 15:23 → OBSVTOIN 16:18
PROVIDERS: ADMIT Family Medicine; ATTEND Family Medicine
PROC: 0DB68ZX Excision of Stomach, Via Natural or Artificial Opening Endoscopic, Diagnostic (ICD-10-PCS; 2021-12-18)
PROC: 0DBC8ZX Excision of Ileocecal Valve, Via Natural or Artificial Opening Endoscopic, Diagnostic (ICD-10-PCS; 2021-12-18)
PROC: 0W3P8ZZ Control Bleeding in Gastrointestinal Tract, Via Natural or Artificial Opening Endoscopic (ICD-10-PCS; 2021-12-18)
PROC: 0DB98ZX Excision of Duodenum, Via Natural or Artificial Opening Endoscopic, Diagnostic (ICD-10-PCS; principal; 2021-12-18 12:00)
PROC: 5A1D70Z Performance of Urinary Filtration, Intermittent, Less than 6 Hours Per Day (ICD-10-PCS; 2021-12-21)
DX: D12.6 Benign neoplasm of colon, unspecified (principal); N18.6 End stage renal disease; I13.2 Hypertensive heart and chronic kidney disease with heart failure and with stage 5 chronic kidney disease, or end stage renal disease; L97.409 Non-pressure chronic ulcer of unspecified heel and midfoot with unspecified severity; L03.90 Cellulitis, unspecified; R18.8 Other ascites; I12.0 Hypertensive chronic kidney disease with stage 5 chronic kidney disease or end stage renal disease; K82.9 Disease of gallbladder, unspecified; E11.22 Type 2 diabetes mellitus with diabetic chronic kidney disease; Z99.2 Dependence on renal dialysis; E11.51 Type 2 diabetes mellitus with diabetic peripheral angiopathy without gangrene; E11.621 Type 2 diabetes mellitus with foot ulcer; D64.9 Anemia, unspecified; Z68.33 Body mass index [BMI] 33.0-33.9, adult; K75.9 Inflammatory liver disease, unspecified; K21.9 Gastro-esophageal reflux disease without esophagitis; E78.5 Hyperlipidemia, unspecified; K31.7 Polyp of stomach and duodenum; K29.50 Unspecified chronic gastritis without bleeding; K64.8 Other hemorrhoids; E83.51 Hypocalcemia; I50.9 Heart failure, unspecified; K56.41 Fecal impaction; K44.9 Diaphragmatic hernia without obstruction or gangrene
CPT/HCPCS: 0241U-QW; 36415; 71045-TC-FY; 73630-TC-RT-FY; 74018-TC-FY; 74176-TC; 74220-TC-FY; 74240-TC-FY; 78226-TC; 80048; 80053; 82150; 82378; 82550; 82553; 82803; 82962; 83605; 83690; 83735; 84100; 84443; 84484; 85025; 85027; 85045; 85610; 85730; 86140; 86803; 86850; 86900; 86901; 87040; 87340; 87517; 88305-TC; 93005; 93010; 97116-GP; 97161-GP; 99285-25; A9537; G0378; G0480; J1644; Q0162; Q5106

== ENCOUNTER 2022-01-11 10:26 | Inpatient (IN) | payer OTHER, BC ==
[2022-01-11 10:48] VITALS: BMI 26.6
[2022-01-11] MEDS ORDERED: ACETAMINOPHEN 1000 MG/100 ML BAG IVPB ONE (11:07)
[2022-01-11] MEDS ORDERED: SODIUM CHLORIDE 0.9% 500 ML INFUS.BAG IV ONE (11:07)
[2022-01-11] MEDS ORDERED: ACETAMINOPHEN INJECTION 100 ML IVPB ONE (11:16)
[2022-01-11] MEDS ORDERED: ONDANSETRON 4 MG/2 ML VIAL IVPUSH ONE (11:35)
[2022-01-11] MEDS ORDERED: ONDANSETRON 4 MG/2 ML VIAL ONE (11:45)
[2022-01-11 12:43] LABS: BASO % 0.9 % (0-2.0); EOS % 1.8 % (0-4.5); HEMATOCRIT 32.9 % (32.4-45.2); HEMOGLOBIN 10.6 GM/dL (10.7-15.3); LYMPH % 4.4 % (8-40); MCHC 32.3 g/dl (32.0-36.0); MEAN CELL VOLUME 102.2 fl (80-96); MEAN PLT VOLUME 10.4 fl (7.5-11.1); MONO % 4.3 % (3.8-10.2); NEUT % 88.6 % (42.8-82.8); PLATELET COUNT 73 10^3/uL (134-434); RBC 3.22 M/mm3 (3.60-5.2); RDW 18.4 % (11.6-15.6); WHITE BLOOD COUNT 5.4 K/mm3 (4.0-10.0)
[2022-01-11 13:04] LABS: CHLORIDE 110 mmol/L (98-107); SODIUM 145 mmol/L (136-145)
[2022-01-11 13:05] LABS: ALBUMIN 3.7 g/dl (3.4-5.0); ANION GAP 16 MMOL/L (8-16); CALCIUM 9.4 mg/dL (8.5-10.1); CO2 19 mmol/L (21-32)
[2022-01-11 13:06] LABS: GLUCOSE,RANDOM 67 mg/dL (74-106)
[2022-01-11 13:08] LABS: PHOSPHOROUS 5.7 mg/dL (2.5-4.9)
[2022-01-11 13:09] LABS: SGOT/AST 37 U/L (15-37); SGPT/ALT 25 U/L (13-61)
[2022-01-11 13:10] LABS: ALK PHOS 131 U/L (45-117); BILIRUBIN,TOTAL 0.6 mg/dL (0.2-1); TOT PROT 7.8 g/dl (6.4-8.2)
[2022-01-11] MEDS ORDERED: SODIUM CHLORIDE 250 ML IV PRN (13:10)
[2022-01-11 13:12] LABS: BLOOD UREA NITROGEN 137.5 mg/dL (7-18)
[2022-01-11] MEDS: DEXTROSE 5%-0.45% SALINE 1,000 ML IV SCH (16:05)
[2022-01-11] MEDS ORDERED: hydrALAZINE HCL 25 MG TABLET (FP) ONE (22:30)
[2022-01-11] MEDS ORDERED: PANTOPRAZOLE 40 MG TABLET PO ONE (22:30)
[2022-01-11] MEDS ORDERED: HEPARIN NA (PORCINE) 5,000 UNITS/ML 1ML VIAL ONE (22:31)
[2022-01-11] MEDS ORDERED: DOCUSATE SODIUM 100 MG CAPSULE (FP) PO ONE (22:31)
[2022-01-11] MEDS: DOCUSATE SODIUM 100 MG CAPSULE (FP) PO SCH (22:33)
[2022-01-11] MEDS: PANTOPRAZOLE 40 MG TABLET PO SCH (22:33)
[2022-01-11] MEDS: HEPARIN NA (PORCINE) 5,000 UNITS/ML 1ML VIAL SQ SCH (22:33)
[2022-01-11] MEDS: hydrALAZINE HCL 25 MG TABLET (FP) PO SCH (22:38)
[2022-01-12] MEDS ORDERED: hydrALAZINE HCL 25 MG TABLET (FP) ONE ×2 (06:04→16:55)
[2022-01-12] MEDS: hydrALAZINE HCL 25 MG TABLET (FP) PO SCH ×3 (06:04→21:31)
[2022-01-12 07:00] LABS: BASO % 1.3 % (0-2.0); EOS % 2.4 % (0-4.5); HEMATOCRIT 28.8 % (32.4-45.2); HEMOGLOBIN 9.5 GM/dL (10.7-15.3); LYMPH % 12.7 % (8-40); MCHC 33.1 g/dl (32.0-36.0); MEAN CELL VOLUME 99.7 fl (80-96); MEAN PLT VOLUME 9.8 fl (7.5-11.1); NEUT % 74.6 % (42.8-82.8); PLATELET COUNT 53 10^3/uL (134-434); RBC 2.89 M/mm3 (3.60-5.2); RDW 17.7 % (11.6-15.6); WHITE BLOOD COUNT 4.3 K/mm3 (4.0-10.0)
[2022-01-12 07:17] LABS: CHLORIDE 105 mmol/L (98-107); SODIUM 142 mmol/L (136-145)
[2022-01-12 07:22] LABS: ALBUMIN 3.2 g/dl (3.4-5.0); ANION GAP 10 MMOL/L (8-16); CALCIUM 8.3 mg/dL (8.5-10.1); CO2 28 mmol/L (21-32); GLUCOSE,RANDOM 64 mg/dL (74-106)
[2022-01-12 07:25] LABS: CREATININE 5.5 mg/dL (0.55-1.3); SGOT/AST 30 U/L (15-37); SGPT/ALT 24 U/L (13-61)
[2022-01-12 07:27] LABS: BILIRUBIN,TOTAL 0.6 mg/dL (0.2-1); TOT PROT 6.7 g/dl (6.4-8.2)
[2022-01-12 07:28] LABS: ALK PHOS 119 U/L (45-117)
[2022-01-12 07:40] LABS: BLOOD UREA NITROGEN 72.8 mg/dL (7-18)
[2022-01-12] MEDS ORDERED: amLODIPine BESYLATE 5 MG TABLET (FP) ONE (10:26)
[2022-01-12] MEDS ORDERED: PANTOPRAZOLE 40 MG TABLET PO ONE (10:26)
[2022-01-12] MEDS: POLYETHYLENE GLYCOL (HEALTHYLAX) 3350 17 GM PACKET PO SCH (10:28)
[2022-01-12] MEDS: HEPARIN NA (PORCINE) 5,000 UNITS/ML 1ML VIAL SQ SCH ×2 (10:28→21:31)
[2022-01-12] MEDS: PANTOPRAZOLE 40 MG TABLET PO SCH ×2 (10:28→21:31)
[2022-01-12] MEDS: amLODIPine BESYLATE 5 MG TABLET (FP) PO SCH (10:28)
[2022-01-12] MEDS: CALCIUM ACETATE 667 MG CAPSULE (FP) PO SCH ×3 (10:28→17:33)
[2022-01-12] MEDS: DEXTROSE 5%-0.45% SALINE 1,000 ML IV SCH (17:33)
[2022-01-12] MEDS ORDERED: SODIUM CHLORIDE 250 ML IV PRN (18:22)
[2022-01-12] MEDS: DOCUSATE SODIUM 100 MG CAPSULE (FP) PO SCH (21:29)
[2022-01-13] MEDS: hydrALAZINE HCL 25 MG TABLET (FP) PO SCH ×3 (06:51→21:16)
[2022-01-13] MEDS: CALCIUM ACETATE 667 MG CAPSULE (FP) PO SCH ×3 (07:33→17:49)
[2022-01-13] MEDS: PANTOPRAZOLE 40 MG TABLET PO SCH ×2 (10:59→21:17)
[2022-01-13] MEDS: POLYETHYLENE GLYCOL (HEALTHYLAX) 3350 17 GM PACKET PO SCH ×2 (10:59→11:03)
[2022-01-13] MEDS: HEPARIN NA (PORCINE) 5,000 UNITS/ML 1ML VIAL SQ SCH ×2 (10:59→21:16)
[2022-01-13] MEDS: amLODIPine BESYLATE 5 MG TABLET (FP) PO SCH (15:47)
[2022-01-13] MEDS ORDERED: EPOETIN ALFA-EPBX 4,000 UNIT/ML VIAL SQ ONE (18:22)
[2022-01-13] MEDS: DEXTROSE 5%-0.45% SALINE 1,000 ML IV SCH (18:36)
[2022-01-13] MEDS: DOCUSATE SODIUM 100 MG CAPSULE (FP) PO SCH ×2 (21:16→21:24)
[2022-01-14] MEDS: hydrALAZINE HCL 25 MG TABLET (FP) PO SCH ×3 (05:46→21:33)
[2022-01-14] MEDS: CALCIUM ACETATE 667 MG CAPSULE (FP) PO SCH ×3 (07:59→16:42)
[2022-01-14] MEDS: amLODIPine BESYLATE 5 MG TABLET (FP) PO SCH (09:18)
[2022-01-14] MEDS: PANTOPRAZOLE 40 MG TABLET PO SCH ×2 (09:18→21:33)
[2022-01-14] MEDS: HEPARIN NA (PORCINE) 5,000 UNITS/ML 1ML VIAL SQ SCH ×2 (09:18→21:33)
[2022-01-14] MEDS: POLYETHYLENE GLYCOL (HEALTHYLAX) 3350 17 GM PACKET PO SCH (09:18)
[2022-01-14] MEDS: ACETAMINOPHEN 325 MG TABLET (FP) PO PRN (16:42)
[2022-01-14] MEDS: DOCUSATE SODIUM 100 MG CAPSULE (FP) PO SCH (21:32)
[2022-01-15] MEDS: hydrALAZINE HCL 25 MG TABLET (FP) PO SCH ×3 (05:46→22:05)
[2022-01-15 07:49] LABS: BASO % 1.2 % (0-2.0); EOS % 6.2 % (0-4.5); HEMATOCRIT 29.8 % (32.4-45.2); HEMOGLOBIN 9.7 GM/dL (10.7-15.3); MCH 32.9 pg (25.7-33.7); MCHC 32.5 g/dl (32.0-36.0); MEAN CELL VOLUME 101.2 fl (80-96); MEAN PLT VOLUME 9.3 fl (7.5-11.1); MONO % 11.9 % (3.8-10.2); NEUT % 65.7 % (42.8-82.8); PLATELET COUNT 59 10^3/uL (134-434); RBC 2.94 M/mm3 (3.60-5.2); RDW 16.7 % (11.6-15.6); WHITE BLOOD COUNT 4.2 K/mm3 (4.0-10.0)
[2022-01-15 08:07] LABS: CALCIUM 8.4 mg/dL (8.5-10.1)
[2022-01-15 08:08] LABS: ALBUMIN 2.9 g/dl (3.4-5.0); BLOOD UREA NITROGEN 54.2 mg/dL (7-18)
[2022-01-15 08:11] LABS: CREATININE 6.1 mg/dL (0.55-1.3)
[2022-01-15 08:12] LABS: TOT PROT 6.6 g/dl (6.4-8.2)
[2022-01-15 08:13] LABS: BILIRUBIN,TOTAL 0.5 mg/dL (0.2-1)
[2022-01-15] MEDS: CALCIUM ACETATE 667 MG CAPSULE (FP) PO SCH ×3 (08:28→17:26)
[2022-01-15] MEDS: HEPARIN NA (PORCINE) 5,000 UNITS/ML 1ML VIAL SQ SCH ×2 (09:47→23:07)
[2022-01-15] MEDS: amLODIPine BESYLATE 5 MG TABLET (FP) PO SCH (09:47)
[2022-01-15] MEDS: PANTOPRAZOLE 40 MG TABLET PO SCH ×2 (09:47→22:05)
[2022-01-15] MEDS: POLYETHYLENE GLYCOL (HEALTHYLAX) 3350 17 GM PACKET PO SCH ×2 (09:48→22:08)
[2022-01-16] MEDS: hydrALAZINE HCL 25 MG TABLET (FP) PO SCH (06:01)
[2022-01-16] MEDS: CALCIUM ACETATE 667 MG CAPSULE (FP) PO SCH ×3 (07:38→17:20)
[2022-01-16] MEDS: ACETAMINOPHEN 325 MG TABLET (FP) PO PRN ×2 (08:15→17:19)
[2022-01-16 09:15] LABS: HEMATOCRIT 30.2 % (32.4-45.2); MCH 33.2 pg (25.7-33.7); MCHC 33.1 g/dl (32.0-36.0); MEAN CELL VOLUME 100.3 fl (80-96); MEAN PLT VOLUME 8.9 fl (7.5-11.1); PLATELET COUNT 76 10^3/uL (134-434); RBC 3.01 M/mm3 (3.60-5.2); RDW 16.5 % (11.6-15.6)
[2022-01-16 09:43] LABS: ALBUMIN 2.8 g/dl (3.4-5.0); BILIRUBIN,TOTAL 0.6 mg/dL (0.2-1); BLOOD UREA NITROGEN 61.7 mg/dL (7-18); CALCIUM 8.9 mg/dL (8.5-10.1); CREATININE 7.2 mg/dL (0.55-1.3); TOT PROT 6.4 g/dl (6.4-8.2)
[2022-01-16] MEDS ORDERED: SODIUM CHLORIDE 250 ML IV PRN (10:24)
[2022-01-16] MEDS ORDERED: HEPARIN NA (PORCINE) 5,000 UNITS/ML 1ML VIAL IVPUSH ONE (10:30)
[2022-01-16] MEDS ORDERED: EPOETIN ALFA-EPBX 10,000 UNIT/ML VIAL IVPUSH ONE (10:30)
[2022-01-16] MEDS: amLODIPine BESYLATE 5 MG TABLET (FP) PO SCH ×2 (12:19→21:13)
[2022-01-16] MEDS: HEPARIN NA (PORCINE) 5,000 UNITS/ML 1ML VIAL SQ SCH ×2 (12:19→21:13)
[2022-01-16] MEDS: PANTOPRAZOLE 40 MG TABLET PO SCH ×2 (12:19→21:13)
[2022-01-16] MEDS: POLYETHYLENE GLYCOL (HEALTHYLAX) 3350 17 GM PACKET PO SCH ×2 (12:20→21:15)
[2022-01-17] MEDS: CALCIUM ACETATE 667 MG CAPSULE (FP) PO SCH ×3 (07:51→17:58)
[2022-01-17] MEDS: PANTOPRAZOLE 40 MG TABLET PO SCH ×2 (09:46→21:38)
[2022-01-17] MEDS: amLODIPine BESYLATE 5 MG TABLET (FP) PO SCH ×2 (09:46→21:38)
[2022-01-17] MEDS: HEPARIN NA (PORCINE) 5,000 UNITS/ML 1ML VIAL SQ SCH ×2 (09:46→21:38)
[2022-01-17] MEDS: POLYETHYLENE GLYCOL (HEALTHYLAX) 3350 17 GM PACKET PO SCH ×2 (09:47→21:38)
[2022-01-17] MEDS ORDERED: MIRTAZAPINE 15 MG TABLET (FP) PO SCH (22:00)
[2022-01-18] MEDS: CALCIUM ACETATE 667 MG CAPSULE (FP) PO SCH ×2 (07:53→12:00)
[2022-01-18] MEDS ORDERED: SODIUM CHLORIDE 250 ML IV PRN (08:39)
[2022-01-18] MEDS: HEPARIN NA (PORCINE) 5,000 UNITS/ML 1ML VIAL SQ SCH (10:00)
[2022-01-18] MEDS: POLYETHYLENE GLYCOL (HEALTHYLAX) 3350 17 GM PACKET PO SCH (10:00)
[2022-01-18] MEDS ORDERED: EPOETIN ALFA-EPBX 4,000 UNIT/ML VIAL IVPUSH ONE (10:00)
[2022-01-18 10:47] LABS: HEMATOCRIT 30.3 % (32.4-45.2); HEMOGLOBIN 9.9 GM/dL (10.7-15.3); MCHC 32.8 g/dl (32.0-36.0); MEAN CELL VOLUME 100.6 fl (80-96); MEAN PLT VOLUME 8.5 fl (7.5-11.1); PLATELET COUNT 78 10^3/uL (134-434); RBC 3.01 M/mm3 (3.60-5.2); RDW 16.3 % (11.6-15.6); WHITE BLOOD COUNT 4.9 K/mm3 (4.0-10.0)
[2022-01-18 11:11] LABS: ALBUMIN 2.8 g/dl (3.4-5.0); CALCIUM 8.8 mg/dL (8.5-10.1)
[2022-01-18 11:16] LABS: BILIRUBIN,TOTAL 0.5 mg/dL (0.2-1); TOT PROT 6.4 g/dl (6.4-8.2)
[2022-01-18] MEDS: amLODIPine BESYLATE 5 MG TABLET (FP) PO SCH (14:15)
[2022-01-18] MEDS: PANTOPRAZOLE 40 MG TABLET PO SCH (14:15)
[2022-01-18 14:47] VITALS: BP 157/56; PULSE 18; RESP 20; TEMP 98.2
== END 2022-01-18 16:07 | disposition home or self-care (01) | DRG 391 ==
LOC: JER 10:26 → JERBED 13:13 → J4W 01-12 18:47
PROVIDERS: ADMIT Family Medicine; ATTEND Family Medicine
PROC: 5A1D70Z Performance of Urinary Filtration, Intermittent, Less than 6 Hours Per Day (ICD-10-PCS; principal; 2022-01-13)
PROC: 5A1D70Z Performance of Urinary Filtration, Intermittent, Less than 6 Hours Per Day (ICD-10-PCS; 2022-01-13)
PROC: 5A1D70Z Performance of Urinary Filtration, Intermittent, Less than 6 Hours Per Day (ICD-10-PCS; 2022-01-13)
DX: R11.2 Nausea with vomiting, unspecified (principal); N18.6 End stage renal disease; I13.2 Hypertensive heart and chronic kidney disease with heart failure and with stage 5 chronic kidney disease, or end stage renal disease; J98.11 Atelectasis; I50.22 Chronic systolic (congestive) heart failure; I25.10 Atherosclerotic heart disease of native coronary artery without angina pectoris; K21.9 Gastro-esophageal reflux disease without esophagitis; K59.00 Constipation, unspecified; E87.5 Hyperkalemia; E11.649 Type 2 diabetes mellitus with hypoglycemia without coma; R16.0 Hepatomegaly, not elsewhere classified; E11.22 Type 2 diabetes mellitus with diabetic chronic kidney disease; K58.9 Irritable bowel syndrome, unspecified; D64.9 Anemia, unspecified; E03.9 Hypothyroidism, unspecified; R10.31 Right lower quadrant pain; K31.84 Gastroparesis; R53.83 Other fatigue; Z99.2 Dependence on renal dialysis
CPT/HCPCS: 0241U-QW; 36415; 70450-TC; 71045-TC-FY; 74177-TC; 80053; 82550; 82553; 82962; 83036; 83735; 84100; 84443; 84484; 85025; 85027; 93005; 93010; 97116-GP; 97161-GP; 99285-25; J1644; Q5106; Q9967

== ENCOUNTER 2022-02-17 09:35 | Inpatient (IN) | payer OTHER, BC ==
[2022-02-17] MEDS ORDERED: VANCOMYCIN 1 GM in D5W (PRE-DOCKED) 1,000 MG/250 ML IVPB ONE (10:44)
[2022-02-17] MEDS ORDERED: PIPERACILLIN/TAZOB 4.5 GM 4.5 GM in DEXTROSE 5%-WATER 100 ML IVPB ONE (10:45)
[2022-02-17 11:34] LABS: BASO % 0.9 % (0-2.0); EOS % 1.9 % (0-4.5); HEMATOCRIT 27.3 % (32.4-45.2); HEMOGLOBIN 9.1 GM/dL (10.7-15.3); LYMPH % 6.4 % (8-40); MCH 32.6 pg (25.7-33.7); MCHC 33.3 g/dl (32.0-36.0); MEAN CELL VOLUME 98.1 fl (80-96); MONO % 3.9 % (3.8-10.2); NEUT % 86.9 % (42.8-82.8); PLATELET COUNT 55 10^3/uL (134-434); RBC 2.78 M/mm3 (3.60-5.2); RDW 17.1 % (11.6-15.6)
[2022-02-17 11:40] LABS: INR 1.06 (0.83-1.09); PROTHROMBIN TIME (PATIENT) 12.2 SEC (9.7-13.0)
[2022-02-17 11:43] LABS: ACTIVATED PTT 43.8 SECONDS (25.2-36.5)
[2022-02-17] MEDS ORDERED: PIPERACILLIN/TAZOB 4.5 GM 4.5 GM/100 ML BAG IVPB ONE (11:52)
[2022-02-17 11:56] LABS: CHLORIDE 104 mmol/L (98-107); SODIUM 139 mmol/L (136-145)
[2022-02-17 11:58] LABS: ALBUMIN 3.5 g/dl (3.4-5.0); ANION GAP 16 MMOL/L (8-16); CALCIUM 8.7 mg/dL (8.5-10.1); CO2 20 mmol/L (21-32); GLUCOSE,RANDOM 169 mg/dL (74-106)
[2022-02-17 12:01] LABS: SGOT/AST 39 U/L (15-37); SGPT/ALT 27 U/L (13-61)
[2022-02-17 12:03] LABS: BILIRUBIN,TOTAL 0.7 mg/dL (0.2-1); TOT PROT 7.6 g/dl (6.4-8.2)
[2022-02-17 12:04] LABS: ALK PHOS 107 U/L (45-117)
[2022-02-17 12:08] LABS: BLOOD UREA NITROGEN 106.1 mg/dL (7-18); CREATININE 8.2 mg/dL (0.55-1.3)
[2022-02-17] MEDS ORDERED: SODIUM CHLORIDE 250 ML IV PRN ×2 (12:49→15:00)
[2022-02-17] MEDS ORDERED: VANCOMYCIN/WATER FOR INJ (PEG) 1,000 MG/200 ML BAG IVPB ONE (12:53)
[2022-02-17 14:33] LABS: MAGNESIUM 2.8 mg/dL (1.8-2.4)
[2022-02-17 14:37] LABS: PHOSPHOROUS 8.4 mg/dL (2.5-4.9)
[2022-02-17] MEDS: EPOETIN ALFA-EPBX 3,000 UNIT/ML VIAL IVPUSH ONE ×2 (16:07→16:56)
[2022-02-17] MEDS ORDERED: ACETAMINOPHEN 325 MG TABLET (FP) PO PRN (16:21)
[2022-02-17] MEDS ORDERED: PIPERACILLIN/TAZOB 2.25 GM 2.25 GM in DEXTROSE 5%-WATER - 50 ML IVPB SCH (18:00)
[2022-02-17] MEDS: CALCIUM ACETATE 667 MG CAPSULE (FP) PO SCH (22:25)
[2022-02-17] MEDS: DOCUSATE SODIUM 100 MG CAPSULE (FP) PO SCH (22:28)
[2022-02-17] MEDS ORDERED: ACETAMINOPHEN 1000 MG/100 ML BAG IVPB ONE (23:00)
[2022-02-17] MEDS ORDERED: amLODIPine BESYLATE 5 MG TABLET (FP) ONE ×2 (23:05→23:55)
[2022-02-17] MEDS ORDERED: HEPARIN NA (PORCINE) 5,000 UNITS/ML 1ML VIAL ONE (23:05)
[2022-02-17] MEDS ORDERED: PANTOPRAZOLE 40 MG TABLET PO ONE ×2 (23:05→23:55)
[2022-02-17] MEDS ORDERED: MIRTAZAPINE 15 MG TABLET (FP) ONE ×2 (23:08→23:55)
[2022-02-17] MEDS ORDERED: ACETAMINOPHEN INJECTION 100 ML IVPB ONE (23:08)
[2022-02-17] MEDS ORDERED: PIPERACILLIN/TAZOB 2.25 GM 2.25 GM/50 ML BAG IVPB ONE (23:09)
[2022-02-17] MEDS: PANTOPRAZOLE 40 MG TABLET PO SCH (23:21)
[2022-02-17] MEDS: HEPARIN NA (PORCINE) 5,000 UNITS/ML 1ML VIAL SQ SCH (23:21)
[2022-02-17] MEDS: amLODIPine BESYLATE 5 MG TABLET (FP) PO SCH (23:21)
[2022-02-17] MEDS: PIPERACILLIN/TAZOB 2.25 GM 2.25 GM in DEXTROSE 5%-WATER - 50 ML IVPB SCH (23:21)
[2022-02-17] MEDS: MIRTAZAPINE 15 MG TABLET (FP) PO SCH (23:21)
[2022-02-18] MEDS ORDERED: PIPERACILLIN/TAZOB 2.25 GM 2.25 GM/50 ML BAG IVPB ONE ×4 (03:44→21:41)
[2022-02-18] MEDS: PIPERACILLIN/TAZOB 2.25 GM 2.25 GM in DEXTROSE 5%-WATER - 50 ML IVPB SCH ×3 (03:48→21:42)
[2022-02-18 07:26] LABS: CALCIUM 8.1 mg/dL (8.5-10.1)
[2022-02-18 07:27] LABS: ALBUMIN 2.9 g/dl (3.4-5.0)
[2022-02-18 07:29] LABS: CREATININE 4.3 mg/dL (0.55-1.3); TOT PROT 6.6 g/dl (6.4-8.2)
[2022-02-18 07:31] LABS: BASO % 1.3 % (0-2.0); EOS % 2.8 % (0-4.5); HEMATOCRIT 26.1 % (32.4-45.2); HEMOGLOBIN 8.6 GM/dL (10.7-15.3); LYMPH % 10.7 % (8-40); MCH 32.4 pg (25.7-33.7); MCHC 33.1 g/dl (32.0-36.0); MEAN CELL VOLUME 97.9 fl (80-96); MEAN PLT VOLUME 9.6 fl (7.5-11.1); MONO % 10.6 % (3.8-10.2); NEUT % 74.6 % (42.8-82.8); PLATELET COUNT 44 10^3/uL (134-434); RBC 2.66 M/mm3 (3.60-5.2); RDW 18.2 % (11.6-15.6); WHITE BLOOD COUNT 4.2 K/mm3 (4.0-10.0)
[2022-02-18 07:54] LABS: BLOOD UREA NITROGEN 39.7 mg/dL (7-18)
[2022-02-18] MEDS ORDERED: DEXTROSE 50%-WATER 25 GM/50 ML DISP.SYRIN ONE ×2 (09:29→17:48)
[2022-02-18] MEDS ORDERED: DEXTROSE 50%-WATER - 25 GM/50 ML VIAL IVPUSH ONE (09:29)
[2022-02-18] MEDS ORDERED: PANTOPRAZOLE 40 MG TABLET PO ONE ×2 (10:14→21:41)
[2022-02-18] MEDS ORDERED: amLODIPine BESYLATE 5 MG TABLET (FP) ONE ×2 (10:14→21:41)
[2022-02-18] MEDS ORDERED: HEPARIN NA (PORCINE) 5,000 UNITS/ML 1ML VIAL ONE ×2 (10:15→21:42)
[2022-02-18] MEDS: LACTOBACILLUS ACIDOPHILUS 1 TABLET PO SCH (10:17)
[2022-02-18] MEDS: HEPARIN NA (PORCINE) 5,000 UNITS/ML 1ML VIAL SQ SCH ×2 (10:17→21:43)
[2022-02-18] MEDS: amLODIPine BESYLATE 5 MG TABLET (FP) PO SCH ×2 (10:18→21:43)
[2022-02-18] MEDS: CALCIUM ACETATE 667 MG CAPSULE (FP) PO SCH ×3 (10:18→17:54)
[2022-02-18] MEDS: PANTOPRAZOLE 40 MG TABLET PO SCH ×2 (10:20→21:43)
[2022-02-18] MEDS: POLYETHYLENE GLYCOL (HEALTHYLAX) 3350 17 GM PACKET PO SCH (10:21)
[2022-02-18] MEDS ORDERED: DOCUSATE SODIUM 100 MG CAPSULE (FP) PO ONE (21:41)
[2022-02-18] MEDS ORDERED: MIRTAZAPINE 15 MG TABLET (FP) ONE (21:41)
[2022-02-18] MEDS: DOCUSATE SODIUM 100 MG CAPSULE (FP) PO SCH (21:42)
[2022-02-18] MEDS: MIRTAZAPINE 15 MG TABLET (FP) PO SCH (21:43)
[2022-02-19] MEDS ORDERED: PIPERACILLIN/TAZOB 2.25 GM 2.25 GM/50 ML BAG IVPB ONE (05:39)
[2022-02-19] MEDS: PIPERACILLIN/TAZOB 2.25 GM 2.25 GM in DEXTROSE 5%-WATER - 50 ML IVPB SCH (05:40)
[2022-02-19] MEDS ORDERED: DEXTROSE 50%-WATER 25 GM/50 ML DISP.SYRIN IVPUSH ONE ×2 (05:51→21:46)
[2022-02-19] MEDS ORDERED: DEXTROSE 50%-WATER - 25 GM/50 ML VIAL IVPUSH ONE ×2 (05:51→21:46)
[2022-02-19] MEDS ORDERED: DEXTROSE 50%-WATER 25 GM/50 ML DISP.SYRIN ONE ×3 (05:55→21:46)
[2022-02-19 07:56] LABS: BASO % 1.1 % (0-2.0); EOS % 6.2 % (0-4.5); HEMATOCRIT 28.3 % (32.4-45.2); HEMOGLOBIN 9.3 GM/dL (10.7-15.3); LYMPH % 10.5 % (8-40); MCH 32.6 pg (25.7-33.7); MEAN CELL VOLUME 98.6 fl (80-96); MEAN PLT VOLUME 8.6 fl (7.5-11.1); MONO % 10.2 % (3.8-10.2); RBC 2.87 M/mm3 (3.60-5.2); RDW 17.3 % (11.6-15.6); WHITE BLOOD COUNT 4.8 K/mm3 (4.0-10.0)
[2022-02-19 08:03] LABS: PLATELET COUNT 32 10^3/uL (134-434)
[2022-02-19 08:15] LABS: ALBUMIN 2.9 g/dl (3.4-5.0)
[2022-02-19 08:17] LABS: BILIRUBIN,TOTAL 0.9 mg/dL (0.2-1); TOT PROT 6.7 g/dl (6.4-8.2)
[2022-02-19 08:18] LABS: BLOOD UREA NITROGEN 48.3 mg/dL (7-18); MAGNESIUM 2.2 mg/dL (1.8-2.4); PHOSPHOROUS 4.8 mg/dL (2.5-4.9)
[2022-02-19 08:19] LABS: CREATININE 5.4 mg/dL (0.55-1.3)
[2022-02-19] MEDS ORDERED: amLODIPine BESYLATE 5 MG TABLET (FP) ONE (10:35)
[2022-02-19] MEDS ORDERED: HEPARIN NA (PORCINE) 5,000 UNITS/ML 1ML VIAL ONE (10:35)
[2022-02-19] MEDS ORDERED: POLYETHYLENE GLYCOL (HEALTHYLAX) 3350 17 GM PACKET ONE (10:35)
[2022-02-19] MEDS: HEPARIN NA (PORCINE) 5,000 UNITS/ML 1ML VIAL SQ SCH (10:46)
[2022-02-19] MEDS: amLODIPine BESYLATE 5 MG TABLET (FP) PO SCH (10:46)
[2022-02-19] MEDS: LACTOBACILLUS ACIDOPHILUS 1 TABLET PO SCH (10:47)
[2022-02-19] MEDS: POLYETHYLENE GLYCOL (HEALTHYLAX) 3350 17 GM PACKET PO SCH (10:47)
[2022-02-19] MEDS: CALCIUM ACETATE 667 MG CAPSULE (FP) PO SCH ×3 (10:47→19:06)
[2022-02-19] MEDS ORDERED: SODIUM CHLORIDE 250 ML IV PRN (13:26)
[2022-02-20] MEDS ORDERED: DEXTROSE 50%-WATER 25 GM/50 ML DISP.SYRIN IVPUSH PRN ×2 (03:30→21:05)
[2022-02-20] MEDS: MIRTAZAPINE 15 MG TABLET (FP) PO SCH ×2 (03:59→21:18)
[2022-02-20] MEDS: amLODIPine BESYLATE 5 MG TABLET (FP) PO SCH ×3 (03:59→21:18)
[2022-02-20] MEDS: PIPERACILLIN/TAZOB 2.25 GM 2.25 GM in DEXTROSE 5%-WATER - 50 ML IVPB SCH (05:28)
[2022-02-20] MEDS: PANTOPRAZOLE 40 MG TABLET PO SCH ×2 (05:28→10:54)
[2022-02-20] MEDS ORDERED: ACETAMINOPHEN 325 MG TABLET (FP) PO PRN (08:37)
[2022-02-20 08:49] VITALS: BMI 23.6
[2022-02-20] MEDS ORDERED: PANTOPRAZOLE 40 MG TABLET PO SCH (10:00)
[2022-02-20] MEDS: CALCIUM ACETATE 667 MG CAPSULE (FP) PO SCH ×3 (10:29→17:56)
[2022-02-20] MEDS: DEXTROSE 5%-0.45% SALINE 1,000 ML IV SCH (10:50)
[2022-02-20] MEDS: CEFTRIAXONE 2 GM in DEXTROSE 5%-WATER 100 ML IVPB SCH (10:50)
[2022-02-20] MEDS: POLYETHYLENE GLYCOL (HEALTHYLAX) 3350 17 GM PACKET PO SCH (10:54)
[2022-02-20] MEDS: LACTOBACILLUS ACIDOPHILUS 1 TABLET PO SCH (10:54)
[2022-02-20 12:10] LABS: INR 1.11 (0.83-1.09); PROTHROMBIN TIME (PATIENT) 12.8 SEC (9.7-13.0)
[2022-02-20] MEDS ORDERED: EPOETIN ALFA-EPBX 10,000 UNIT/ML VIAL IVPUSH ONE (13:26)
[2022-02-20 14:01] LABS: HEMATOCRIT 26.4 % (32.4-45.2); HEMOGLOBIN 8.7 GM/dL (10.7-15.3); MCH 32.3 pg (25.7-33.7); MEAN PLT VOLUME 9.1 fl (7.5-11.1); RBC 2.69 M/mm3 (3.60-5.2); RDW 16.8 % (11.6-15.6); WHITE BLOOD COUNT 3.9 K/mm3 (4.0-10.0)
[2022-02-20 14:04] LABS: PLATELET COUNT 35 10^3/uL (134-434)
[2022-02-20 14:19] LABS: BLOOD UREA NITROGEN 55.8 mg/dL (7-18)
[2022-02-20 14:20] LABS: ALBUMIN 2.6 g/dl (3.4-5.0)
[2022-02-20 14:23] LABS: CREATININE 6.5 mg/dL (0.55-1.3)
[2022-02-20 14:24] LABS: BILIRUBIN,TOTAL 0.8 mg/dL (0.2-1); TOT PROT 6.3 g/dl (6.4-8.2)
[2022-02-20] MEDS ORDERED: DEXTROSE 50%-WATER - 25 GM/50 ML VIAL IVPUSH PRN (20:25)
[2022-02-21] MEDS: CALCIUM ACETATE 667 MG CAPSULE (FP) PO SCH ×3 (09:34→17:34)
[2022-02-21] MEDS: PANTOPRAZOLE 40 MG TABLET PO SCH (10:10)
[2022-02-21] MEDS: LACTOBACILLUS ACIDOPHILUS 1 TABLET PO SCH (10:10)
[2022-02-21] MEDS: CEFTRIAXONE 2 GM in DEXTROSE 5%-WATER 100 ML IVPB SCH (10:11)
[2022-02-21] MEDS: POLYETHYLENE GLYCOL (HEALTHYLAX) 3350 17 GM PACKET PO SCH ×2 (10:11→10:37)
[2022-02-21] MEDS: amLODIPine BESYLATE 5 MG TABLET (FP) PO SCH ×2 (10:11→21:49)
[2022-02-21] MEDS: DEXTROSE 5%-0.45% SALINE 1,000 ML IV SCH (10:12)
[2022-02-21] MEDS: DEXTROSE 5%-WATER - 1,000 ML IV SCH (19:02)
[2022-02-21] MEDS: MIRTAZAPINE 15 MG TABLET (FP) PO SCH ×2 (21:49→21:54)
[2022-02-22] MEDS: CALCIUM ACETATE 667 MG CAPSULE (FP) PO SCH ×3 (08:37→17:05)
[2022-02-22] MEDS: CEFTRIAXONE 2 GM in DEXTROSE 5%-WATER 100 ML IVPB SCH (09:51)
[2022-02-22] MEDS: POLYETHYLENE GLYCOL (HEALTHYLAX) 3350 17 GM PACKET PO SCH (09:53)
[2022-02-22] MEDS: LACTOBACILLUS ACIDOPHILUS 1 TABLET PO SCH (09:53)
[2022-02-22] MEDS: PANTOPRAZOLE 40 MG TABLET PO SCH (09:54)
[2022-02-22] MEDS ORDERED: SODIUM CHLORIDE 250 ML IV PRN (11:40)
[2022-02-22] MEDS ORDERED: EPOETIN ALFA-EPBX 10,000 UNIT/ML VIAL IVPUSH ONE ×2 (12:14→12:30)
[2022-02-22 13:03] LABS: HEMATOCRIT 26.1 % (32.4-45.2); HEMOGLOBIN 8.2 GM/dL (10.7-15.3); MCH 30.9 pg (25.7-33.7); MCHC 31.5 g/dl (32.0-36.0); MEAN CELL VOLUME 98.2 fl (80-96); MEAN PLT VOLUME 8.6 fl (7.5-11.1); PLATELET COUNT 44 10^3/uL (134-434); RBC 2.66 M/mm3 (3.60-5.2); RDW 16.3 % (11.6-15.6); WHITE BLOOD COUNT 3.7 K/mm3 (4.0-10.0)
[2022-02-22 13:28] LABS: CALCIUM 8.8 mg/dL (8.5-10.1)
[2022-02-22 13:29] LABS: ALBUMIN 2.6 g/dl (3.4-5.0)
[2022-02-22 13:32] LABS: CREATININE 4.2 mg/dL (0.55-1.3)
[2022-02-22 13:34] LABS: BILIRUBIN,TOTAL 0.5 mg/dL (0.2-1); TOT PROT 6.2 g/dl (6.4-8.2)
[2022-02-22] MEDS: amLODIPine BESYLATE 5 MG TABLET (FP) PO SCH ×2 (14:51→22:07)
[2022-02-22] MEDS: DEXTROSE 5%-WATER - 1,000 ML IV SCH (18:03)
[2022-02-22] MEDS: MIRTAZAPINE 15 MG TABLET (FP) PO SCH (22:08)
[2022-02-23] MEDS ORDERED: DEXTROSE 50%-WATER 25 GM/50 ML DISP.SYRIN IVPUSH ONE (07:03)
[2022-02-23] MEDS: CALCIUM ACETATE 667 MG CAPSULE (FP) PO SCH ×3 (08:52→17:38)
[2022-02-23] MEDS: amLODIPine BESYLATE 5 MG TABLET (FP) PO SCH ×2 (09:01→22:49)
[2022-02-23] MEDS: POLYETHYLENE GLYCOL (HEALTHYLAX) 3350 17 GM PACKET PO SCH (09:01)
[2022-02-23] MEDS: LACTOBACILLUS ACIDOPHILUS 1 TABLET PO SCH (09:01)
[2022-02-23] MEDS: PANTOPRAZOLE 40 MG TABLET PO SCH (09:01)
[2022-02-23] MEDS ORDERED: BUPIVACAINE HCL/PF 0.25% (2.5MG/ML) 10 ML VIAL ONE (09:59)
[2022-02-23] MEDS: CEFTRIAXONE 2 GM in DEXTROSE 5%-WATER 100 ML IVPB SCH (10:00)
[2022-02-23] MEDS ORDERED: DESMOPRESSIN ACETATE 20 MCG in SODIUM CHLORIDE 50 ML IVPB ONE (10:20)
[2022-02-23] MEDS ORDERED: LIDOCAINE HCL/PF 2% SDV 5ML VIAL ONE (10:33)
[2022-02-23] MEDS ORDERED: ETOMIDATE 20 MG/10 ML VIAL IVPUSH ONE (10:33)
[2022-02-23] MEDS ORDERED: ROCURONIUM BROMIDE 50 MG/5 ML SYRINGE ONE (10:34)
[2022-02-23] MEDS ORDERED: FENTANYL CITRATE/PF 50 MCG/ML VIAL ONE ×2 (10:34→14:11)
[2022-02-23] MEDS ORDERED: PROPOFOL 20 ML ONE (10:34)
[2022-02-23] MEDS ORDERED: DESMOPRESSIN ACETATE 4 MCG/ML AMP IVPB ONE ×2 (11:05)
[2022-02-23] MEDS ORDERED: MIDAZOLAM HCL 2 MG/2 ML SINGLE DOSE VIAL ONE (11:14)
[2022-02-23] MEDS ORDERED: cefOXitin SODIUM 1 GM VIAL (RESTRICTED TO ID) IVPB ONE (12:03)
[2022-02-23] MEDS ORDERED: ONDANSETRON 4 MG/2 ML VIAL ONE (12:22)
[2022-02-23] MEDS ORDERED: DEXAMETHASONE SOD PHOSPHATE 4 MG/1 ML VIAL ONE (12:22)
[2022-02-23] MEDS ORDERED: GLYCOPYRROLATE 0.2 MG/1 ML VIAL ONE (12:46)
[2022-02-23] MEDS ORDERED: BUPIVACAINE HCL/PF 0.25% (2.5MG/ML) 10 ML VIAL IJ ONE (13:00)
[2022-02-23] MEDS ORDERED: ONDANSETRON 4 MG/2 ML VIAL IVPUSH PRN (13:26)
[2022-02-23] MEDS ORDERED: oxyCODONE HCL 5 MG TABLET PO PRN (13:35)
[2022-02-23] MEDS ORDERED: ACETAMINOPHEN 325 MG TABLET (FP) PO PRN (13:35)
[2022-02-23] MEDS ORDERED: DEXTROSE 5%-WATER - 1,000 ML IV SCH (13:35)
[2022-02-23] MEDS: SODIUM CHLORIDE 1,000 ML IV SCH (17:40)
[2022-02-23] MEDS: MIRTAZAPINE 15 MG TABLET (FP) PO SCH (22:49)
[2022-02-24] MEDS: CALCIUM ACETATE 667 MG CAPSULE (FP) PO SCH ×3 (08:11→17:42)
[2022-02-24] MEDS ORDERED: SODIUM CHLORIDE 250 ML IV PRN (10:26)
[2022-02-24] MEDS ORDERED: EPOETIN ALFA-EPBX 10,000 UNIT/ML VIAL IVPUSH ONE (10:30)
[2022-02-24 11:11] LABS: BASO % 0.7 % (0-2.0); EOS % 4.7 % (0-4.5); HEMATOCRIT 22.6 % (32.4-45.2); HEMOGLOBIN 7.4 GM/dL (10.7-15.3); LYMPH % 6.2 % (8-40); MCH 31.7 pg (25.7-33.7); MCHC 32.7 g/dl (32.0-36.0); MEAN CELL VOLUME 96.9 fl (80-96); MONO % 6.6 % (3.8-10.2); NEUT % 81.8 % (42.8-82.8); PLATELET COUNT 112 10^3/uL (134-434); RBC 2.34 M/mm3 (3.60-5.2); RDW 16.5 % (11.6-15.6); WHITE BLOOD COUNT 3.8 K/mm3 (4.0-10.0)
[2022-02-24 11:46] LABS: ALBUMIN 2.5 g/dl (3.4-5.0); BLOOD UREA NITROGEN 7.4 mg/dL (7-18)
[2022-02-24 11:48] LABS: CALCIUM 8.6 mg/dL (8.5-10.1)
[2022-02-24 11:49] LABS: CREATININE 1.9 mg/dL (0.55-1.3)
[2022-02-24 11:51] LABS: BILIRUBIN,TOTAL 0.5 mg/dL (0.2-1); TOT PROT 5.6 g/dl (6.4-8.2)
[2022-02-24] MEDS: POLYETHYLENE GLYCOL (HEALTHYLAX) 3350 17 GM PACKET PO SCH (13:00)
[2022-02-24] MEDS: LACTOBACILLUS ACIDOPHILUS 1 TABLET PO SCH (13:00)
[2022-02-24] MEDS: amLODIPine BESYLATE 5 MG TABLET (FP) PO SCH ×2 (13:01→23:34)
[2022-02-24] MEDS: PANTOPRAZOLE 40 MG TABLET PO SCH (13:01)
[2022-02-24] MEDS: CEFTRIAXONE 2 GM in DEXTROSE 5%-WATER 100 ML IVPB SCH (14:58)
[2022-02-24] MEDS: SODIUM CHLORIDE 1,000 ML IV SCH (17:43)
[2022-02-24 18:59] LABS: HEMATOCRIT 26.1 % (32.4-45.2); HEMOGLOBIN 8.7 GM/dL (10.7-15.3); MCH 32.2 pg (25.7-33.7); MCHC 33.1 g/dl (32.0-36.0); MEAN PLT VOLUME 8.5 fl (7.5-11.1); PLATELET COUNT 138 10^3/uL (134-434); RBC 2.69 M/mm3 (3.60-5.2); RDW 16.2 % (11.6-15.6); WHITE BLOOD COUNT 4.9 K/mm3 (4.0-10.0)
[2022-02-24 19:15] LABS: ALBUMIN 2.7 g/dl (3.4-5.0); BLOOD UREA NITROGEN 5.9 mg/dL (7-18)
[2022-02-24 19:18] LABS: CREATININE 2.2 mg/dL (0.55-1.3)
[2022-02-24 19:20] LABS: BILIRUBIN,TOTAL 0.5 mg/dL (0.2-1); TOT PROT 6.2 g/dl (6.4-8.2)
[2022-02-24] MEDS: MIRTAZAPINE 15 MG TABLET (FP) PO SCH (23:34)
[2022-02-25 09:09] LABS: BASO % 0.8 % (0-2.0); EOS % 3.3 % (0-4.5); HEMATOCRIT 26.7 % (32.4-45.2); HEMOGLOBIN 8.6 GM/dL (10.7-15.3); LYMPH % 6.3 % (8-40); MCH 31.6 pg (25.7-33.7); MCHC 32.3 g/dl (32.0-36.0); MEAN PLT VOLUME 8.1 fl (7.5-11.1); MONO % 7.5 % (3.8-10.2); NEUT % 82.1 % (42.8-82.8); PLATELET COUNT 148 10^3/uL (134-434); RBC 2.72 M/mm3 (3.60-5.2); RDW 16.6 % (11.6-15.6); WHITE BLOOD COUNT 6.2 K/mm3 (4.0-10.0)
[2022-02-25 09:29] LABS: CALCIUM 9.1 mg/dL (8.5-10.1)
[2022-02-25 09:30] LABS: ALBUMIN 2.8 g/dl (3.4-5.0); BLOOD UREA NITROGEN 8.4 mg/dL (7-18)
[2022-02-25 09:33] LABS: CREATININE 2.8 mg/dL (0.55-1.3)
[2022-02-25 09:35] LABS: BILIRUBIN,TOTAL 0.5 mg/dL (0.2-1); TOT PROT 6.5 g/dl (6.4-8.2)
[2022-02-25] MEDS: CALCIUM ACETATE 667 MG CAPSULE (FP) PO SCH ×3 (09:40→17:05)
[2022-02-25] MEDS: POLYETHYLENE GLYCOL (HEALTHYLAX) 3350 17 GM PACKET PO SCH (09:44)
[2022-02-25] MEDS: amLODIPine BESYLATE 5 MG TABLET (FP) PO SCH ×2 (09:44→22:18)
[2022-02-25] MEDS: PANTOPRAZOLE 40 MG TABLET PO SCH (09:44)
[2022-02-25] MEDS: LACTOBACILLUS ACIDOPHILUS 1 TABLET PO SCH (09:44)
[2022-02-25] MEDS: CEFTRIAXONE 2 GM in DEXTROSE 5%-WATER 100 ML IVPB SCH (09:44)
[2022-02-25] MEDS ORDERED: ONDANSETRON 4 MG/2 ML VIAL IVPUSH ONE (10:45)
[2022-02-25] MEDS: MIRTAZAPINE 15 MG TABLET (FP) PO SCH ×2 (22:17→22:30)
[2022-02-26] MEDS: POLYETHYLENE GLYCOL (HEALTHYLAX) 3350 17 GM PACKET PO SCH (09:14)
[2022-02-26] MEDS: CEFTRIAXONE 2 GM in DEXTROSE 5%-WATER 100 ML IVPB SCH (09:14)
[2022-02-26] MEDS: CALCIUM ACETATE 667 MG CAPSULE (FP) PO SCH ×3 (09:15→17:04)
[2022-02-26] MEDS: LACTOBACILLUS ACIDOPHILUS 1 TABLET PO SCH (09:15)
[2022-02-26] MEDS: amLODIPine BESYLATE 5 MG TABLET (FP) PO SCH ×2 (09:16→21:10)
[2022-02-26] MEDS: PANTOPRAZOLE 40 MG TABLET PO SCH (09:16)
[2022-02-26 10:51] LABS: BASO % 1.2 % (0-2.0); EOS % 3.8 % (0-4.5); HEMATOCRIT 25.2 % (32.4-45.2); HEMOGLOBIN 8.2 GM/dL (10.7-15.3); LYMPH % 5.6 % (8-40); MCH 32.1 pg (25.7-33.7); MCHC 32.6 g/dl (32.0-36.0); MEAN CELL VOLUME 98.5 fl (80-96); MEAN PLT VOLUME 8.4 fl (7.5-11.1); MONO % 8.4 % (3.8-10.2); PLATELET COUNT 159 10^3/uL (134-434); RBC 2.55 M/mm3 (3.60-5.2); RDW 16.6 % (11.6-15.6)
[2022-02-26 11:22] LABS: ALBUMIN 2.7 g/dl (3.4-5.0); BLOOD UREA NITROGEN 14.8 mg/dL (7-18)
[2022-02-26 11:25] LABS: CREATININE 3.8 mg/dL (0.55-1.3)
[2022-02-26 11:26] LABS: BILIRUBIN,TOTAL 0.5 mg/dL (0.2-1); TOT PROT 6.2 g/dl (6.4-8.2)
[2022-02-26] MEDS: MIRTAZAPINE 15 MG TABLET (FP) PO SCH (21:51)
[2022-02-27] MEDS ORDERED: SODIUM CHLORIDE 250 ML IV PRN (07:57)
[2022-02-27 09:43] LABS: BASO % 2.4 % (0-2.0); EOS % 4.4 % (0-4.5); HEMATOCRIT 24.6 % (32.4-45.2); HEMOGLOBIN 8.1 GM/dL (10.7-15.3); LYMPH % 6.9 % (8-40); MCH 32.2 pg (25.7-33.7); MCHC 32.9 g/dl (32.0-36.0); MEAN CELL VOLUME 97.8 fl (80-96); MEAN PLT VOLUME 8.1 fl (7.5-11.1); NEUT % 80.3 % (42.8-82.8); PLATELET COUNT 146 10^3/uL (134-434); RBC 2.51 M/mm3 (3.60-5.2); RDW 16.6 % (11.6-15.6); WHITE BLOOD COUNT 4.9 K/mm3 (4.0-10.0)
[2022-02-27] MEDS: CALCIUM ACETATE 667 MG CAPSULE (FP) PO SCH ×3 (09:52→17:33)
[2022-02-27] MEDS ORDERED: EPOETIN ALFA-EPBX 10,000 UNIT/ML VIAL SQ ONE (10:00)
[2022-02-27 10:05] LABS: ALBUMIN 2.6 g/dl (3.4-5.0); BLOOD UREA NITROGEN 16.5 mg/dL (7-18)
[2022-02-27 10:09] LABS: CREATININE 3.7 mg/dL (0.55-1.3)
[2022-02-27 10:11] LABS: BILIRUBIN,TOTAL 0.4 mg/dL (0.2-1); TOT PROT 6.1 g/dl (6.4-8.2)
[2022-02-27] MEDS: PANTOPRAZOLE 40 MG TABLET PO SCH (13:22)
[2022-02-27] MEDS: POLYETHYLENE GLYCOL (HEALTHYLAX) 3350 17 GM PACKET PO SCH (13:22)
[2022-02-27] MEDS: amLODIPine BESYLATE 5 MG TABLET (FP) PO SCH ×2 (13:22→21:26)
[2022-02-27] MEDS: CEFTRIAXONE 2 GM in DEXTROSE 5%-WATER 100 ML IVPB SCH (13:23)
[2022-02-27] MEDS: LACTOBACILLUS ACIDOPHILUS 1 TABLET PO SCH (13:23)
[2022-02-27] MEDS: MIRTAZAPINE 15 MG TABLET (FP) PO SCH (21:27)
[2022-02-28] MEDS: CALCIUM ACETATE 667 MG CAPSULE (FP) PO SCH ×3 (09:37→17:02)
[2022-02-28] MEDS: POLYETHYLENE GLYCOL (HEALTHYLAX) 3350 17 GM PACKET PO SCH (09:37)
[2022-02-28] MEDS: PANTOPRAZOLE 40 MG TABLET PO SCH (09:37)
[2022-02-28] MEDS: amLODIPine BESYLATE 5 MG TABLET (FP) PO SCH ×2 (09:37→21:23)
[2022-02-28] MEDS: LACTOBACILLUS ACIDOPHILUS 1 TABLET PO SCH (09:37)
[2022-02-28] MEDS: CEFTRIAXONE 2 GM in DEXTROSE 5%-WATER 100 ML IVPB SCH (09:37)
[2022-02-28] MEDS ORDERED: SODIUM CHLORIDE 250 ML IV PRN (11:51)
[2022-02-28] MEDS: MIRTAZAPINE 15 MG TABLET (FP) PO SCH (21:23)
[2022-03-01 09:50] LABS: HEMATOCRIT 26.1 % (32.4-45.2); HEMOGLOBIN 8.5 GM/dL (10.7-15.3); MCH 32.1 pg (25.7-33.7); MCHC 32.5 g/dl (32.0-36.0); MEAN CELL VOLUME 98.6 fl (80-96); MEAN PLT VOLUME 7.7 fl (7.5-11.1); PLATELET COUNT 141 10^3/uL (134-434); RBC 2.65 M/mm3 (3.60-5.2); RDW 17.3 % (11.6-15.6); WHITE BLOOD COUNT 5.3 K/mm3 (4.0-10.0)
[2022-03-01] MEDS ORDERED: EPOETIN ALFA-EPBX 10,000 UNIT/ML VIAL IVPUSH ONE (10:00)
[2022-03-01 10:19] LABS: CALCIUM 8.9 mg/dL (8.5-10.1)
[2022-03-01 10:21] LABS: ALBUMIN 2.5 g/dl (3.4-5.0); BLOOD UREA NITROGEN 20.5 mg/dL (7-18)
[2022-03-01 10:24] LABS: CREATININE 4.4 mg/dL (0.55-1.3)
[2022-03-01 10:25] LABS: BILIRUBIN,TOTAL 0.4 mg/dL (0.2-1); TOT PROT 5.9 g/dl (6.4-8.2)
[2022-03-01] MEDS: CEFTRIAXONE 2 GM in DEXTROSE 5%-WATER 100 ML IVPB SCH (11:52)
[2022-03-01] MEDS: CALCIUM ACETATE 667 MG CAPSULE (FP) PO SCH ×3 (13:10→17:33)
[2022-03-01] MEDS: POLYETHYLENE GLYCOL (HEALTHYLAX) 3350 17 GM PACKET PO SCH (13:10)
[2022-03-01] MEDS: LACTOBACILLUS ACIDOPHILUS 1 TABLET PO SCH (13:13)
[2022-03-01] MEDS: PANTOPRAZOLE 40 MG TABLET PO SCH (13:14)
[2022-03-01] MEDS: amLODIPine BESYLATE 5 MG TABLET (FP) PO SCH ×2 (13:14→21:13)
[2022-03-01] MEDS ORDERED: POTASSIUM CHLORIDE TABS 10 MEQ TABLET.ER (FP) PO ONE (15:59)
[2022-03-02] MEDS: PANTOPRAZOLE 40 MG TABLET PO SCH (10:13)
[2022-03-02] MEDS: POLYETHYLENE GLYCOL (HEALTHYLAX) 3350 17 GM PACKET PO SCH (10:13)
[2022-03-02] MEDS: LACTOBACILLUS ACIDOPHILUS 1 TABLET PO SCH (10:13)
[2022-03-02] MEDS: amLODIPine BESYLATE 5 MG TABLET (FP) PO SCH ×2 (10:13→22:21)
[2022-03-02] MEDS: CALCIUM ACETATE 667 MG CAPSULE (FP) PO SCH ×3 (10:13→16:33)
[2022-03-03] MEDS ORDERED: SODIUM CHLORIDE 250 ML IV PRN (08:00)
[2022-03-03] MEDS ORDERED: EPOETIN ALFA-EPBX 10,000 UNIT/ML VIAL SQ ONE (08:00)
[2022-03-03] MEDS: CALCIUM ACETATE 667 MG CAPSULE (FP) PO SCH ×3 (09:28→18:21)
[2022-03-03] MEDS: POLYETHYLENE GLYCOL (HEALTHYLAX) 3350 17 GM PACKET PO SCH (12:14)
[2022-03-03] MEDS: amLODIPine BESYLATE 5 MG TABLET (FP) PO SCH (12:19)
[2022-03-03] MEDS: PANTOPRAZOLE 40 MG TABLET PO SCH (12:19)
[2022-03-03] MEDS: LACTOBACILLUS ACIDOPHILUS 1 TABLET PO SCH (12:20)
[2022-03-03 20:55] VITALS: BP 158/66; PULSE 73; RESP 20; TEMP 98.9
== END 2022-03-03 21:00 | DRG 853 ==
LOC: JER 09:35 → JERBED 14:04 → J5S 02-20 01:35
PROVIDERS: ADMIT Family Medicine; ATTEND Family Medicine
PROC: 5A1D70Z Performance of Urinary Filtration, Intermittent, Less than 6 Hours Per Day (ICD-10-PCS; 2022-02-21)
PROC: 0FT44ZZ Resection of Gallbladder, Percutaneous Endoscopic Approach (ICD-10-PCS; principal; 2022-02-23 10:00)
DX: A41.9 Sepsis, unspecified organism (principal); I50.23 Acute on chronic systolic (congestive) heart failure; N18.6 End stage renal disease; N17.9 Acute kidney failure, unspecified; K81.0 Acute cholecystitis; I13.2 Hypertensive heart and chronic kidney disease with heart failure and with stage 5 chronic kidney disease, or end stage renal disease; D61.818 Other pancytopenia; E11.22 Type 2 diabetes mellitus with diabetic chronic kidney disease; N18.9 Chronic kidney disease, unspecified; I44.0 Atrioventricular block, first degree; K81.1 Chronic cholecystitis; N76.0 Acute vaginitis; R91.1 Solitary pulmonary nodule; Z99.2 Dependence on renal dialysis; Z91.15 Patient's noncompliance with renal dialysis; R68.0 Hypothermia, not associated with low environmental temperature; K21.9 Gastro-esophageal reflux disease without esophagitis; D64.9 Anemia, unspecified; E11.319 Type 2 diabetes mellitus with unspecified diabetic retinopathy without macular edema; E11.51 Type 2 diabetes mellitus with diabetic peripheral angiopathy without gangrene; D63.8 Anemia in other chronic diseases classified elsewhere
CPT/HCPCS: 0241U-QW; 36415; 36430; 71045-TC-FY; 74177-TC; 76705-TC; 80053; 82550; 82553; 82728; 82962; 83010; 83540; 83550; 83605; 83615; 83735; 84100; 84443; 84484; 85025; 85027; 85045; 85384; 85610; 85730; 86803; 86850; 86900; 86901; 86922; 87040; 87340; 88304-TC; 93005; 93010; 93306-TC; 94010; 94760; 97116-GP; 97162-GP; 99285-25; C9803-CS; G0480; J1644; J2597; P9034; Q5106; U0003; U0005

== ENCOUNTER 2022-04-16 15:42 | Observation (INO) | payer OTHER, BC ==
[2022-04-16 16:24] VITALS: BMI 22.1
[2022-04-16] MEDS ORDERED: CEFTRIAXONE 1 GM in DEXTROSE 5%-WATER - 100 ML IVPB ONE (19:20)
[2022-04-16] MEDS ORDERED: AZITHROMYCIN IVPB 500 MG in DEXTROSE 5%-WATER - 250 ML IVPB ONE (19:20)
[2022-04-16 19:56] LABS: BASO % 0.6 % (0-2.0); EOS % 3.8 % (0-4.5); HEMATOCRIT 24.9 % (32.4-45.2); HEMOGLOBIN 8.2 GM/dL (10.7-15.3); LYMPH % 5.2 % (8-40); MCH 31.9 pg (25.7-33.7); MEAN CELL VOLUME 96.7 fl (80-96); MEAN PLT VOLUME 8.9 fl (7.5-11.1); MONO % 4.5 % (3.8-10.2); NEUT % 85.9 % (42.8-82.8); PLATELET COUNT 106 10^3/uL (134-434); RBC 2.57 M/mm3 (3.60-5.2); RDW 17.6 % (11.6-15.6); WHITE BLOOD COUNT 8.2 K/mm3 (4.0-10.0)
[2022-04-16] MEDS ORDERED: AZITHROMYCIN IVPB 500 MG/250 ML BAG IVPB ONE (19:59)
[2022-04-16] MEDS ORDERED: CEFTRIAXONE 1 GM/50 ML BAG ONE (19:59)
[2022-04-16 20:21] LABS: INR 1.17 (0.83-1.09); PROTHROMBIN TIME (PATIENT) 13.6 SEC (9.7-13.0)
[2022-04-16 20:24] LABS: ACTIVATED PTT 40.2 SECONDS (25.2-36.5)
[2022-04-16 20:27] LABS: CHLORIDE 110 mmol/L (98-107); SODIUM 144 mmol/L (136-145)
[2022-04-16 20:29] LABS: CALCIUM 8.5 mg/dL (8.5-10.1)
[2022-04-16 20:30] LABS: ALBUMIN 2.9 g/dl (3.4-5.0); ANION GAP 15 MMOL/L (8-16); CO2 19 mmol/L (21-32); GLUCOSE,RANDOM 120 mg/dL (74-106); MAGNESIUM 2.6 mg/dL (1.8-2.4)
[2022-04-16 20:32] LABS: SGPT/ALT 29 U/L (13-61)
[2022-04-16 20:33] LABS: PHOSPHOROUS 3.9 mg/dL (2.5-4.9); SGOT/AST 32 U/L (15-37)
[2022-04-16 20:34] LABS: BILIRUBIN,TOTAL 0.5 mg/dL (0.2-1); TOT PROT 7.6 g/dl (6.4-8.2)
[2022-04-16 20:35] LABS: ALK PHOS 240 U/L (45-117)
[2022-04-16 20:44] LABS: BLOOD UREA NITROGEN 141.6 mg/dL (7-18); CREATININE 11.4 mg/dL (0.55-1.3)
[2022-04-17 06:34] LABS: BASO % 0.8 % (0-2.0); EOS % 10.4 % (0-4.5); HEMATOCRIT 22.8 % (32.4-45.2); HEMOGLOBIN 7.6 GM/dL (10.7-15.3); LYMPH % 7.3 % (8-40); MCH 32.1 pg (25.7-33.7); MCHC 33.3 g/dl (32.0-36.0); MEAN CELL VOLUME 96.3 fl (80-96); MEAN PLT VOLUME 8.5 fl (7.5-11.1); MONO % 8.9 % (3.8-10.2); NEUT % 72.6 % (42.8-82.8); PLATELET COUNT 100 10^3/uL (134-434); RBC 2.36 M/mm3 (3.60-5.2); RDW 17.7 % (11.6-15.6); WHITE BLOOD COUNT 6.1 K/mm3 (4.0-10.0)
[2022-04-17 06:50] LABS: CHLORIDE 113 mmol/L (98-107); SODIUM 144 mmol/L (136-145)
[2022-04-17 06:56] LABS: ANION GAP 13 MMOL/L (8-16); CO2 18 mmol/L (21-32); GLUCOSE,RANDOM 58 mg/dL (74-106)
[2022-04-17 07:21] LABS: BLOOD UREA NITROGEN 143.9 mg/dL (7-18); CREATININE 11.5 mg/dL (0.55-1.3)
[2022-04-17] MEDS ORDERED: DEXTROSE 50%-WATER - 25 GM/50 ML VIAL IVPUSH ONE (07:33)
[2022-04-17] MEDS ORDERED: DEXTROSE 50%-WATER 25 GM/50 ML DISP.SYRIN ONE ×2 (07:41→17:18)
[2022-04-17] MEDS ORDERED: DEXTROSE 5%-LACTATED RINGERS 1,000 ML IV SCH (07:45)
[2022-04-17] MEDS ORDERED: FUROSEMIDE 40 MG/4 ML INJECTABLE VIAL IVPUSH ONE (13:27)
[2022-04-17] MEDS ORDERED: SODIUM CHLORIDE 250 ML IV PRN (13:29)
[2022-04-17] MEDS ORDERED: SODIUM ZIRCONIUM CYCLOSILICATE (LOKELMA) 5 GM PACKET PO SCH (13:30)
[2022-04-17] MEDS ORDERED: FUROSEMIDE 40 MG/4 ML INJECTABLE VIAL ONE (13:42)
[2022-04-17] MEDS: DEXTROSE 50%-WATER - 25 GM/50 ML VIAL IVPUSH PRN (17:25)
[2022-04-17] MEDS ORDERED: ACETAMINOPHEN 325 MG TABLET (FP) PO ONE (20:58)
[2022-04-18] MEDS ORDERED: DEXTROSE 50%-WATER 25 GM/50 ML DISP.SYRIN ONE ×2 (05:50→08:49)
[2022-04-18] MEDS: DEXTROSE 50%-WATER - 25 GM/50 ML VIAL IVPUSH PRN (05:56)
[2022-04-18] MEDS ORDERED: SODIUM CHLORIDE 250 ML IV PRN (07:25)
[2022-04-18] MEDS ORDERED: HEPARIN NA (PORCINE) 5,000 UNITS/ML 1ML VIAL IVPUSH ONE ×2 (08:00→13:29)
[2022-04-18 08:38] LABS: HEMATOCRIT 23.6 % (32.4-45.2); HEMOGLOBIN 7.9 GM/dL (10.7-15.3); MCHC 33.4 g/dl (32.0-36.0); MEAN CELL VOLUME 95.9 fl (80-96); PLATELET COUNT 106 10^3/uL (134-434); RBC 2.46 M/mm3 (3.60-5.2); RDW 17.8 % (11.6-15.6); WHITE BLOOD COUNT 8.5 K/mm3 (4.0-10.0)
[2022-04-18 08:56] LABS: CHLORIDE 112 mmol/L (98-107); SODIUM 143 mmol/L (136-145)
[2022-04-18 08:58] LABS: ALBUMIN 2.6 g/dl (3.4-5.0); GLUCOSE,RANDOM 149 mg/dL (74-106)
[2022-04-18 09:00] LABS: ANION GAP 11 MMOL/L (8-16); CALCIUM 8.1 mg/dL (8.5-10.1); CO2 19 mmol/L (21-32); SGPT/ALT 25 U/L (13-61)
[2022-04-18 09:02] LABS: SGOT/AST 23 U/L (15-37)
[2022-04-18 09:03] LABS: BILIRUBIN,TOTAL 0.5 mg/dL (0.2-1); TOT PROT 6.8 g/dl (6.4-8.2)
[2022-04-18 09:20] LABS: ALK PHOS 155 U/L (45-117); BLOOD UREA NITROGEN 156.2 mg/dL (7-18)
[2022-04-18] MEDS ORDERED: DEXTROSE 50%-WATER - 25 GM/50 ML VIAL IVPUSH PRN ×2 (09:40→13:27)
[2022-04-18] MEDS ORDERED: DEXTROSE 5%-WATER - 1,000 ML IV SCH (09:45)
[2022-04-18] MEDS ORDERED: EPOETIN ALFA-EPBX 4,000 UNIT/ML VIAL SQ ONE (13:29)
[2022-04-18] MEDS ORDERED: DEXTROSE 5%-LACTATED RINGERS 1,000 ML IV SCH ×2 (13:30→19:20)
[2022-04-18] MEDS ORDERED: DEXTROSE 50%-WATER 25 GM/50 ML DISP.SYRIN IVPUSH PRN ×2 (13:34→19:20)
[2022-04-18] MEDS ORDERED: LIDOCAINE HCL 1%, 10 MG/ML (20ML VIAL) ONE (14:51)
[2022-04-18] MEDS ORDERED: HEPARIN NA (PORCINE) 5,000 UNITS/ML 1ML VIAL ONE (14:51)
[2022-04-18] MEDS ORDERED: KETAMINE HCL 500 MG/10 ML VIAL ONE (18:02)
[2022-04-18] MEDS ORDERED: PROPOFOL 20 ML ONE (18:02)
[2022-04-18] MEDS ORDERED: MIDAZOLAM HCL 2 MG/2 ML SINGLE DOSE VIAL ONE (18:02)
[2022-04-18] MEDS ORDERED: ceFAZolin SODIUM 1 GM VIAL IVPB ONE (18:10)
[2022-04-18] MEDS ORDERED: SUCCINYLCHOLINE CHLORIDE 200 MG/10 ML SYRINGE ONE (18:18)
[2022-04-18] MEDS ORDERED: LIDOCAINE HCL 1%, 10 MG/ML (20ML VIAL) INF ONE (18:27)
[2022-04-18] MEDS ORDERED: ONDANSETRON 4 MG/2 ML VIAL IVPUSH PRN ×2 (18:55→19:20)
[2022-04-18] MEDS ORDERED: SODIUM CHLORIDE 1,000 ML IV SCH ×2 (19:00→19:20)
[2022-04-18] MEDS ORDERED: POVIDONE-IODINE OINTMENT 10% - 28.4 GM TUBE TP ONE (19:13)
[2022-04-19 09:01] VITALS: RESP 18
[2022-04-19 09:27] LABS: HEMATOCRIT 21.8 % (32.4-45.2); HEMOGLOBIN 7.3 GM/dL (10.7-15.3); MCH 32.4 pg (25.7-33.7); MCHC 33.4 g/dl (32.0-36.0); MEAN PLT VOLUME 8.2 fl (7.5-11.1); PLATELET COUNT 91 10^3/uL (134-434); RBC 2.25 M/mm3 (3.60-5.2); RDW 17.7 % (11.6-15.6); WHITE BLOOD COUNT 7.6 K/mm3 (4.0-10.0)
[2022-04-19 09:44] LABS: CHLORIDE 113 mmol/L (98-107); SODIUM 142 mmol/L (136-145)
[2022-04-19 09:59] LABS: ANION GAP 11 MMOL/L (8-16); CALCIUM 7.9 mg/dL (8.5-10.1); CO2 18 mmol/L (21-32); GLUCOSE,RANDOM 89 mg/dL (74-106)
[2022-04-19 10:00] LABS: ALBUMIN 2.4 g/dl (3.4-5.0); MAGNESIUM 2.6 mg/dL (1.8-2.4)
[2022-04-19] MEDS ORDERED: EPOETIN ALFA-EPBX 4,000 UNIT/ML VIAL SQ ONE (10:00)
[2022-04-19 10:03] LABS: PHOSPHOROUS 5.4 mg/dL (2.5-4.9); SGOT/AST 22 U/L (15-37); SGPT/ALT 21 U/L (13-61)
[2022-04-19 10:04] LABS: BILIRUBIN,TOTAL 0.4 mg/dL (0.2-1); TOT PROT 6.4 g/dl (6.4-8.2)
[2022-04-19 10:05] LABS: ALK PHOS 145 U/L (45-117)
[2022-04-19 10:49] LABS: BLOOD UREA NITROGEN 155.4 mg/dL (7-18); CREATININE 12.2 mg/dL (0.55-1.3)
[2022-04-19 14:31] VITALS: BP 142/77; PULSE 85; TEMP 97.5
== END 2022-04-19 14:52 | disposition home or self-care (01) ==
LOC: JER 15:42 → JERBED 17:45 → J8W 04-18 16:03
PROVIDERS: ADMIT Internal Medicine; ATTEND Family Medicine
PROC: 3E03329 Introduction of Other Anti-infective into Peripheral Vein, Percutaneous Approach (ICD-10-PCS; principal; 2022-04-16)
PROC: 3E033GC Introduction of Other Therapeutic Substance into Peripheral Vein, Percutaneous Approach (ICD-10-PCS; 2022-04-16)
PROC: 3E0337Z Introduction of Electrolytic and Water Balance Substance into Peripheral Vein, Percutaneous Approach (ICD-10-PCS; 2022-04-16)
PROC: 3E023GC Introduction of Other Therapeutic Substance into Muscle, Percutaneous Approach (ICD-10-PCS; 2022-04-16)
PROC: 3E033NZ Introduction of Analgesics, Hypnotics, Sedatives into Peripheral Vein, Percutaneous Approach (ICD-10-PCS; 2022-04-16)
PROC: 05C80ZZ Extirpation of Matter from Left Axillary Vein, Open Approach (ICD-10-PCS; 2022-04-16)
PROC: 05780ZZ Dilation of Left Axillary Vein, Open Approach (ICD-10-PCS; 2022-04-16)
DX: I13.2 Hypertensive heart and chronic kidney disease with heart failure and with stage 5 chronic kidney disease, or end stage renal disease (principal); T82.898A Other specified complication of vascular prosthetic devices, implants and grafts, initial encounter; D64.9 Anemia, unspecified; I50.9 Heart failure, unspecified; E11.22 Type 2 diabetes mellitus with diabetic chronic kidney disease; N18.6 End stage renal disease; Z99.2 Dependence on renal dialysis; K59.00 Constipation, unspecified; E78.5 Hyperlipidemia, unspecified; K21.9 Gastro-esophageal reflux disease without esophagitis; M86.9 Osteomyelitis, unspecified; R80.9 Proteinuria, unspecified; Z91.15 Patient's noncompliance with renal dialysis; Y99.9 Unspecified external cause status
CPT/HCPCS: 36415; 71045-TC-FY; 76000-TC-FY; 80048; 80053; 82962; 83735; 84100; 85025; 85027; 85610; 85730; 86803; 87040; 87340; 93005; 93010; 93971; 94760; 96361; 96365; 96368; 96372; 96375; 96376; 99285-25; C9803-CS; G0378; J1644; Q5106; U0003; U0005

== ENCOUNTER 2022-05-10 14:07 | Inpatient (IN) | payer OTHER, BC ==
[2022-05-10] MEDS ORDERED: ACETAMINOPHEN 1000 MG/100 ML BAG IVPB ONE (15:21)
[2022-05-10] MEDS ORDERED: ACETAMINOPHEN INJECTION 100 ML IVPB ONE (16:01)
[2022-05-10 17:28] LABS: BASO % 1.7 % (0-2.0); EOS % 4.6 % (0-4.5); HEMATOCRIT 22.7 % (32.4-45.2); HEMOGLOBIN 7.3 GM/dL (10.7-15.3); LYMPH % 7.2 % (8-40); MCH 30.8 pg (25.7-33.7); MCHC 32.3 g/dl (32.0-36.0); MEAN CELL VOLUME 95.4 fl (80-96); MEAN PLT VOLUME 8.5 fl (7.5-11.1); NEUT % 82.5 % (42.8-82.8); PLATELET COUNT 78 10^3/uL (134-434); RBC 2.38 M/mm3 (3.60-5.2); RDW 17.7 % (11.6-15.6); WHITE BLOOD COUNT 5.5 K/mm3 (4.0-10.0)
[2022-05-10 18:21] LABS: CHLORIDE 104 mmol/L (98-107); SODIUM 139 mmol/L (136-145)
[2022-05-10 18:24] LABS: ALBUMIN 2.6 g/dl (3.4-5.0); ANION GAP 13 MMOL/L (8-16); CALCIUM 8.6 mg/dL (8.5-10.1); CO2 22 mmol/L (21-32); GLUCOSE,RANDOM 107 mg/dL (74-106)
[2022-05-10 18:26] LABS: SGOT/AST 40 U/L (15-37); SGPT/ALT 14 U/L (13-61)
[2022-05-10 18:28] LABS: BILIRUBIN,TOTAL 0.5 mg/dL (0.2-1); TOT PROT 7.8 g/dl (6.4-8.2)
[2022-05-10 18:29] LABS: ALK PHOS 180 U/L (45-117)
[2022-05-10 18:34] LABS: CREATININE 9.2 mg/dL (0.55-1.3)
[2022-05-10] MEDS ORDERED: FUROSEMIDE 40 MG/4 ML INJECTABLE VIAL IVPUSH ONE (18:35)
[2022-05-10] MEDS ORDERED: SODIUM CHLORIDE 250 ML IV PRN (18:36)
[2022-05-10] MEDS ORDERED: EPOETIN ALFA-EPBX 10,000 UNIT/ML VIAL SQ ONE (18:36)
[2022-05-10] MEDS ORDERED: SODIUM ZIRCONIUM CYCLOSILICATE (LOKELMA) 5 GM PACKET PO SCH (18:45)
[2022-05-10] MEDS ORDERED: SODIUM ZIRCONIUM CYCLOSILICATE (LOKELMA) 5 GM PACKET ONE (18:59)
[2022-05-10] MEDS ORDERED: FUROSEMIDE 40 MG/4 ML INJECTABLE VIAL ONE (18:59)
[2022-05-10 20:59] LABS: CHLORIDE 105 mmol/L (98-107); SODIUM 140 mmol/L (136-145)
[2022-05-10 21:00] LABS: ANION GAP 12 MMOL/L (8-16); CALCIUM 8.3 mg/dL (8.5-10.1); CO2 23 mmol/L (21-32); GLUCOSE,RANDOM 73 mg/dL (74-106)
[2022-05-10 21:09] LABS: BLOOD UREA NITROGEN 114.3 mg/dL (7-18); CREATININE 9.1 mg/dL (0.55-1.3)
[2022-05-10] MEDS ORDERED: DOCUSATE SODIUM 100 MG CAPSULE (FP) PO PRN (22:44)
[2022-05-10] MEDS ORDERED: ACETAMINOPHEN 325 MG TABLET (FP) PO PRN (22:44)
[2022-05-11] MEDS: INSULIN SLIDING SCALE (NOVOLOG) 1 VIAL SQ SCH ×4 (06:16→21:50)
[2022-05-11 08:06] LABS: HEMATOCRIT 21.8 % (32.4-45.2); MCH 30.4 pg (25.7-33.7); MCHC 31.8 g/dl (32.0-36.0); MEAN CELL VOLUME 95.5 fl (80-96); MEAN PLT VOLUME 7.7 fl (7.5-11.1); PLATELET COUNT 72 10^3/uL (134-434); RBC 2.28 M/mm3 (3.60-5.2); RDW 17.5 % (11.6-15.6)
[2022-05-11] MEDS ORDERED: EPOETIN ALFA-EPBX 10,000 UNIT/ML VIAL IVPUSH ONE (08:15)
[2022-05-11 08:19] LABS: HEMOGLOBIN 6.9 GM/dL (10.7-15.3)
[2022-05-11 08:37] LABS: CHLORIDE 104 mmol/L (98-107); SODIUM 137 mmol/L (136-145)
[2022-05-11 09:01] LABS: CALCIUM 8.3 mg/dL (8.5-10.1)
[2022-05-11 09:02] LABS: ALBUMIN 2.5 g/dl (3.4-5.0); ANION GAP 12 MMOL/L (8-16); CO2 21 mmol/L (21-32); GLUCOSE,RANDOM 95 mg/dL (74-106)
[2022-05-11 09:05] LABS: SGOT/AST 23 U/L (15-37); SGPT/ALT 14 U/L (13-61)
[2022-05-11 09:07] LABS: BILIRUBIN,TOTAL 0.7 mg/dL (0.2-1); TOT PROT 7.3 g/dl (6.4-8.2)
[2022-05-11 09:08] LABS: ALK PHOS 164 U/L (45-117)
[2022-05-11 09:10] LABS: BLOOD UREA NITROGEN 112.5 mg/dL (7-18); CREATININE 9.4 mg/dL (0.55-1.3)
[2022-05-11] MEDS: HEPARIN NA (PORCINE) 5,000 UNITS/ML 1ML VIAL SQ SCH ×2 (15:08→21:50)
[2022-05-11] MEDS ORDERED: ACETAMINOPHEN 1000 MG/100 ML BAG IVPB ONE (22:23)
[2022-05-12] MEDS ORDERED: DEXTROSE 50%-WATER - 25 GM/50 ML VIAL IVPUSH PRN (02:25)
[2022-05-12] MEDS: HEPARIN NA (PORCINE) 5,000 UNITS/ML 1ML VIAL SQ SCH ×3 (06:19→22:12)
[2022-05-12 16:41] VITALS: BMI 22.8
[2022-05-12 17:47] LABS: BASO % 1.1 % (0-2.0); EOS % 3.3 % (0-4.5); HEMATOCRIT 28.3 % (32.4-45.2); HEMOGLOBIN 9.5 GM/dL (10.7-15.3); LYMPH % 5.9 % (8-40); MCH 30.3 pg (25.7-33.7); MCHC 33.4 g/dl (32.0-36.0); MEAN CELL VOLUME 90.9 fl (80-96); MEAN PLT VOLUME 6.9 fl (7.5-11.1); MONO % 4.4 % (3.8-10.2); NEUT % 85.3 % (42.8-82.8); PLATELET COUNT 73 10^3/uL (134-434); RBC 3.12 M/mm3 (3.60-5.2); RDW 18.5 % (11.6-15.6); WHITE BLOOD COUNT 7.8 K/mm3 (4.0-10.0)
[2022-05-12 18:07] LABS: CALCIUM 8.2 mg/dL (8.5-10.1)
[2022-05-12 18:08] LABS: ALBUMIN 2.4 g/dl (3.4-5.0)
[2022-05-12 18:10] LABS: CREATININE 6.1 mg/dL (0.55-1.3)
[2022-05-12 18:12] LABS: BILIRUBIN,TOTAL 0.5 mg/dL (0.2-1); TOT PROT 7.2 g/dl (6.4-8.2)
[2022-05-12 18:16] LABS: BLOOD UREA NITROGEN 54.2 mg/dL (7-18)
[2022-05-12] MEDS: INSULIN SLIDING SCALE (NOVOLOG) 1 VIAL SQ SCH (22:12)
[2022-05-13] MEDS: HEPARIN NA (PORCINE) 5,000 UNITS/ML 1ML VIAL SQ SCH ×3 (05:26→21:46)
[2022-05-13] MEDS: INSULIN SLIDING SCALE (NOVOLOG) 1 VIAL SQ SCH ×4 (06:20→21:46)
[2022-05-13 08:47] LABS: INR 1.42 (0.83-1.09); PROTHROMBIN TIME (PATIENT) 16.4 SEC (9.7-13.0)
[2022-05-13 09:08] LABS: BASO % 1.8 % (0-2.0); CALCIUM 8.2 mg/dL (8.5-10.1); EOS % 3.9 % (0-4.5); HEMATOCRIT 26.9 % (32.4-45.2); LYMPH % 9.4 % (8-40); MCH 30.9 pg (25.7-33.7); MCHC 33.4 g/dl (32.0-36.0); MEAN CELL VOLUME 92.5 fl (80-96); MEAN PLT VOLUME 7.1 fl (7.5-11.1); MONO % 7.4 % (3.8-10.2); NEUT % 77.5 % (42.8-82.8); PLATELET COUNT 75 10^3/uL (134-434); RBC 2.91 M/mm3 (3.60-5.2); RDW 18.2 % (11.6-15.6); WHITE BLOOD COUNT 7.2 K/mm3 (4.0-10.0)
[2022-05-13 09:09] LABS: ALBUMIN 2.3 g/dl (3.4-5.0); BLOOD UREA NITROGEN 59.4 mg/dL (7-18)
[2022-05-13 09:11] LABS: RETICULOCYTES 1.43 % (0.5-1.5)
[2022-05-13 09:12] LABS: CREATININE 6.7 mg/dL (0.55-1.3)
[2022-05-13 09:13] LABS: BILIRUBIN,TOTAL 0.6 mg/dL (0.2-1)
[2022-05-14] MEDS ORDERED: LACTATED RINGERS SOLUTION 1,000 ML/1,000 ML INFUS.BAG IV STA (00:55)
[2022-05-14] MEDS: HEPARIN NA (PORCINE) 5,000 UNITS/ML 1ML VIAL SQ SCH ×3 (05:02→22:46)
[2022-05-14] MEDS: INSULIN SLIDING SCALE (NOVOLOG) 1 VIAL SQ SCH ×5 (06:52→22:36)
[2022-05-14] MEDS ORDERED: EPOETIN ALFA-EPBX 10,000 UNIT/ML VIAL IVPUSH ONE ×2 (07:15→08:30)
[2022-05-14] MEDS ORDERED: SODIUM CHLORIDE 250 ML IV PRN (07:15)
[2022-05-14 08:42] LABS: HEMATOCRIT 27.7 % (32.4-45.2); HEMOGLOBIN 8.9 GM/dL (10.7-15.3); MCH 29.8 pg (25.7-33.7); MCHC 32.3 g/dl (32.0-36.0); MEAN CELL VOLUME 92.3 fl (80-96); MEAN PLT VOLUME 6.9 fl (7.5-11.1); PLATELET COUNT 71 10^3/uL (134-434); RDW 17.7 % (11.6-15.6); WHITE BLOOD COUNT 7.7 K/mm3 (4.0-10.0)
[2022-05-14 09:00] LABS: CHLORIDE 105 mmol/L (98-107); SODIUM 142 mmol/L (136-145)
[2022-05-14 09:09] LABS: CALCIUM 8.7 mg/dL (8.5-10.1)
[2022-05-14 09:10] LABS: ANION GAP 9 MMOL/L (8-16); BLOOD UREA NITROGEN 76.1 mg/dL (7-18); CO2 27 mmol/L (21-32); GLUCOSE,RANDOM 81 mg/dL (74-106); MAGNESIUM 2.6 mg/dL (1.8-2.4)
[2022-05-14 09:13] LABS: PHOSPHOROUS 6.4 mg/dL (2.5-4.9)
[2022-05-14 09:17] LABS: CREATININE 8.1 mg/dL (0.55-1.3)
[2022-05-15] MEDS: HEPARIN NA (PORCINE) 5,000 UNITS/ML 1ML VIAL SQ SCH ×3 (06:47→21:36)
[2022-05-15] MEDS: INSULIN SLIDING SCALE (NOVOLOG) 1 VIAL SQ SCH ×4 (06:54→21:36)
[2022-05-16] MEDS: HEPARIN NA (PORCINE) 5,000 UNITS/ML 1ML VIAL SQ SCH (05:12)
[2022-05-16] MEDS: INSULIN SLIDING SCALE (NOVOLOG) 1 VIAL SQ SCH ×2 (06:05→12:59)
[2022-05-16 06:11] VITALS: RESP 18; TEMP 97.9
[2022-05-16] MEDS ORDERED: SODIUM CHLORIDE 250 ML IV PRN (09:00)
[2022-05-16 09:11] LABS: HEMATOCRIT 24.6 % (32.4-45.2); HEMOGLOBIN 8.2 GM/dL (10.7-15.3); MCH 31.2 pg (25.7-33.7); MCHC 33.4 g/dl (32.0-36.0); MEAN CELL VOLUME 93.4 fl (80-96); MEAN PLT VOLUME 8.1 fl (7.5-11.1); PLATELET COUNT 101 10^3/uL (134-434); RBC 2.63 M/mm3 (3.60-5.2); RDW 16.7 % (11.6-15.6); WHITE BLOOD COUNT 8.5 K/mm3 (4.0-10.0)
[2022-05-16 09:29] LABS: CALCIUM 8.1 mg/dL (8.5-10.1)
[2022-05-16 09:30] LABS: BLOOD UREA NITROGEN 56.9 mg/dL (7-18)
[2022-05-16 09:33] LABS: CREATININE 6.3 mg/dL (0.55-1.3)
[2022-05-16] MEDS ORDERED: EPOETIN ALFA-EPBX 10,000 UNIT/ML VIAL SQ ONE (10:00)
[2022-05-16 12:46] VITALS: BP 121/56
[2022-05-16 12:49] VITALS: PULSE 70
== END 2022-05-16 13:35 | DRG 291 ==
LOC: JER 14:07 → OBSVTOIN 18:14 → JERBED 18:14 → J5S 05-11 02:41
PROVIDERS: ADMIT Internal Medicine; ATTEND Family Medicine
PROC: 5A1D70Z Performance of Urinary Filtration, Intermittent, Less than 6 Hours Per Day (ICD-10-PCS; principal; 2022-05-11)
PROC: 30233N1 Transfusion of Nonautologous Red Blood Cells into Peripheral Vein, Percutaneous Approach (ICD-10-PCS; 2022-05-11)
PROC: 5A1D70Z Performance of Urinary Filtration, Intermittent, Less than 6 Hours Per Day (ICD-10-PCS; 2022-05-13)
PROC: 5A1D70Z Performance of Urinary Filtration, Intermittent, Less than 6 Hours Per Day (ICD-10-PCS; 2022-05-16)
DX: I13.2 Hypertensive heart and chronic kidney disease with heart failure and with stage 5 chronic kidney disease, or end stage renal disease (principal); L89.153 Pressure ulcer of sacral region, stage 3; N18.6 End stage renal disease; E78.5 Hyperlipidemia, unspecified; I50.22 Chronic systolic (congestive) heart failure; K21.9 Gastro-esophageal reflux disease without esophagitis; E11.22 Type 2 diabetes mellitus with diabetic chronic kidney disease; Z99.2 Dependence on renal dialysis; D69.6 Thrombocytopenia, unspecified; I25.10 Atherosclerotic heart disease of native coronary artery without angina pectoris; R19.7 Diarrhea, unspecified; K58.9 Irritable bowel syndrome, unspecified; G47.33 Obstructive sleep apnea (adult) (pediatric); E87.5 Hyperkalemia; R09.02 Hypoxemia; E88.09 Other disorders of plasma-protein metabolism, not elsewhere classified; R51.9 Headache, unspecified; E83.41 Hypermagnesemia; E83.39 Other disorders of phosphorus metabolism; D64.9 Anemia, unspecified; Z87.11 Personal history of peptic ulcer disease
CPT/HCPCS: 0241U-QW; 36415; 36430; 71045-TC-FY; 80048; 80053; 82962; 83615; 83735; 84100; 84484; 85025; 85027; 85045; 85384; 85610; 86850; 86900; 86901; 86922; 87045; 87046; 87324; 87449; 93005; 93010; 97116-GP; 97161-GP; 99285-25; C9803-CS; J1644; P9058; Q5106; U0003; U0005

== ENCOUNTER 2022-07-25 08:17 | Inpatient (IN) | payer OTHER, BC ==
[2022-07-25 08:41] VITALS: BMI 27.3
[2022-07-25] MEDS ORDERED: VANCOMYCIN 1 GM in D5W (PRE-DOCKED) 1,000 MG/250 ML (RESTRICTED TO ID ONLY IVPB ONE (09:28)
[2022-07-25] MEDS ORDERED: PIPERACILLIN/TAZOB 2.25 GM 2.25 GM in DEXTROSE 5%-WATER - 50 ML IVPB ONE (09:29)
[2022-07-25] MEDS ORDERED: PIPERACILLIN/TAZOB 2.25 GM 2.25 GM/50 ML BAG IVPB ONE (09:33)
[2022-07-25] MEDS ORDERED: VANCOMYCIN/WATER FOR INJ (PEG) 1,000 MG/200 ML BAG IVPB ONE (09:33)
[2022-07-25 10:42] LABS: VENOUS BASE EXCESS -9.5 mmol/L (-2-2); VENOUS O2 SATURATION 94.9 % (70-80); VENOUS PCO2 37.7 mmHg (38-52); VENOUS PH 7.265 (7.310-7.410)
[2022-07-25 11:00] LABS: BASO % 1.4 % (0-2.0); EOS % 8.2 % (0-4.5); HEMATOCRIT 25.5 % (32.4-45.2); HEMOGLOBIN 8.2 GM/dL (10.7-15.3); LYMPH % 9.6 % (8-40); MCH 30.4 pg (25.7-33.7); MCHC 32.2 g/dl (32.0-36.0); MEAN CELL VOLUME 94.5 fl (80-96); MEAN PLT VOLUME 7.9 fl (7.5-11.1); NEUT % 73.8 % (42.8-82.8); PLATELET COUNT 105 10^3/uL (134-434); RBC 2.69 M/mm3 (3.60-5.2); RDW 17.8 % (11.6-15.6)
[2022-07-25 11:02] LABS: EPI CELLS 21 /uL (0-25.1); HYALINE CASTS 0 /uL (0-3.1); URINE APPEARANCE CLEAR; URINE BACTERIA 59 /uL (0-1359); URINE BILIRUBIN NEGATIVE (NEGATIVE); URINE COLOR YELLOW; URINE GLUCOSE (UA) 1+ (NEGATIVE); URINE KETONE NEGATIVE (NEGATIVE); URINE LEUK ESTERASE 1+ (NEGATIVE); URINE NITRITE NEGATIVE (NEGATIVE); URINE PROTEIN 4+ (NEGATIVE); URINE RBC 27 /uL (0-23.9); URINE UROBILINOGEN 0.2 mg/dL (0.2-1.0); URINE WBC 595 /uL (0-25.8)
[2022-07-25 11:27] LABS: CHLORIDE 108 mmol/L (98-107); POTASSIUM 4.9 mmol/L (3.5-5.1); SODIUM 143 mmol/L (136-145)
[2022-07-25 11:30] LABS: ALBUMIN 2.9 g/dl (3.4-5.0); ANION GAP 15 MMOL/L (8-16); CALCIUM 7.8 mg/dL (8.5-10.1); CO2 19 mmol/L (21-32); GLUCOSE,RANDOM 77 mg/dL (74-106); LIPASE 133 U/L (73-393); MAGNESIUM 2.5 mg/dL (1.8-2.4)
[2022-07-25 11:33] LABS: SGOT/AST 18 U/L (15-37); SGPT/ALT 29 U/L (13-61)
[2022-07-25 11:35] LABS: BILIRUBIN,TOTAL 0.4 mg/dL (0.2-1); TOT PROT 7.4 g/dl (6.4-8.2)
[2022-07-25 11:36] LABS: ALK PHOS 169 U/L (45-117)
[2022-07-25 11:53] LABS: ERYTHROCYTE SEDIMENTATION RATE 90 mm/hr (0-30)
[2022-07-25 11:54] LABS: BLOOD UREA NITROGEN 139.5 mg/dL (7-18); CREATININE 9.8 mg/dL (0.55-1.3)
[2022-07-25] MEDS ORDERED: SODIUM CHLORIDE 250 ML IV PRN (14:56)
[2022-07-25] MEDS: INSULIN SLIDING SCALE (NOVOLOG) 1 VIAL SQ SCH ×2 (17:09→22:20)
[2022-07-25] MEDS ORDERED: EPOETIN ALFA-EPBX 10,000 UNIT/ML VIAL SQ ONE (20:00)
[2022-07-25] MEDS: HEPARIN NA (PORCINE) 5,000 UNITS/ML 1ML VIAL SQ SCH (22:20)
[2022-07-25] MEDS: GABAPENTIN 100 MG CAPSULE PO SCH (22:22)
[2022-07-26] MEDS: GABAPENTIN 100 MG CAPSULE PO SCH ×3 (06:35→22:17)
[2022-07-26] MEDS: INSULIN SLIDING SCALE (NOVOLOG) 1 VIAL SQ SCH ×4 (06:35→22:29)
[2022-07-26] MEDS: LACTOBACILLUS ACIDOPHILUS 1 TABLET PO SCH (10:54)
[2022-07-26] MEDS: amLODIPine BESYLATE 5 MG TABLET (FP) PO SCH (10:54)
[2022-07-26] MEDS: HEPARIN NA (PORCINE) 5,000 UNITS/ML 1ML VIAL SQ SCH ×2 (10:54→22:16)
[2022-07-26] MEDS: VANCOMYCIN ORAL SOLUTION 125 MG/2.5 ML PO SCH (17:40)
[2022-07-27] MEDS: VANCOMYCIN ORAL SOLUTION 125 MG/2.5 ML PO SCH ×4 (00:14→17:06)
[2022-07-27] MEDS: GABAPENTIN 100 MG CAPSULE PO SCH ×3 (05:57→21:55)
[2022-07-27] MEDS: INSULIN SLIDING SCALE (NOVOLOG) 1 VIAL SQ SCH ×4 (06:02→21:55)
[2022-07-27] MEDS: HEPARIN NA (PORCINE) 5,000 UNITS/ML 1ML VIAL SQ SCH ×2 (09:42→21:55)
[2022-07-27] MEDS: LACTOBACILLUS ACIDOPHILUS 1 TABLET PO SCH (09:42)
[2022-07-27] MEDS ORDERED: EPOETIN ALFA-EPBX 10,000 UNIT/ML VIAL IVPUSH ONE (10:00)
[2022-07-27] MEDS ORDERED: SODIUM CHLORIDE 250 ML IV PRN (10:00)
[2022-07-27 11:37] LABS: CHLORIDE 106 mmol/L (98-107); POTASSIUM 4.4 mmol/L (3.5-5.1); SODIUM 141 mmol/L (136-145)
[2022-07-27 11:40] LABS: CALCIUM 7.7 mg/dL (8.5-10.1)
[2022-07-27 11:41] LABS: ALBUMIN 2.7 g/dl (3.4-5.0); ANION GAP 12 MMOL/L (8-16); CO2 22 mmol/L (21-32); GLUCOSE,RANDOM 101 mg/dL (74-106)
[2022-07-27 11:44] LABS: SGOT/AST 19 U/L (15-37); SGPT/ALT 24 U/L (13-61)
[2022-07-27 11:45] LABS: BILIRUBIN,TOTAL 0.5 mg/dL (0.2-1); TOT PROT 7.2 g/dl (6.4-8.2)
[2022-07-27 11:47] LABS: ALK PHOS 162 U/L (45-117)
[2022-07-27 11:48] LABS: BLOOD UREA NITROGEN 111.8 mg/dL (7-18); CREATININE 8.8 mg/dL (0.55-1.3)
[2022-07-27] MEDS: amLODIPine BESYLATE 5 MG TABLET (FP) PO SCH (13:44)
[2022-07-27 16:35] LABS: HEMATOCRIT 26.3 % (32.4-45.2); HEMOGLOBIN 8.8 GM/dL (10.7-15.3); MCH 31.1 pg (25.7-33.7); MCHC 33.5 g/dl (32.0-36.0); MEAN CELL VOLUME 92.8 fl (80-96); MEAN PLT VOLUME 7.9 fl (7.5-11.1); PLATELET COUNT 79 10^3/uL (134-434); RBC 2.83 M/mm3 (3.60-5.2); RDW 16.7 % (11.6-15.6); WHITE BLOOD COUNT 4.6 K/mm3 (4.0-10.0)
[2022-07-28] MEDS: VANCOMYCIN ORAL SOLUTION 125 MG/2.5 ML PO SCH ×5 (00:11→23:09)
[2022-07-28] MEDS: ACETAMINOPHEN 325 MG TABLET (FP) PO PRN (06:39)
[2022-07-28] MEDS: INSULIN SLIDING SCALE (NOVOLOG) 1 VIAL SQ SCH ×4 (06:43→22:51)
[2022-07-28] MEDS: GABAPENTIN 100 MG CAPSULE PO SCH ×3 (06:43→22:49)
[2022-07-28 08:44] LABS: POTASSIUM 3.9 mmol/L (3.5-5.1)
[2022-07-28 09:01] LABS: BLOOD UREA NITROGEN 60.9 mg/dL (7-18)
[2022-07-28] MEDS: LACTOBACILLUS ACIDOPHILUS 1 TABLET PO SCH (09:46)
[2022-07-28] MEDS: HEPARIN NA (PORCINE) 5,000 UNITS/ML 1ML VIAL SQ SCH ×2 (09:46→22:49)
[2022-07-28] MEDS: VITAMIN B COMP W-C 1 EA TABLET (NEPHRO-VITE) PO SCH (09:46)
[2022-07-28] MEDS: amLODIPine BESYLATE 5 MG TABLET (FP) PO SCH (09:46)
[2022-07-29] MEDS: GABAPENTIN 100 MG CAPSULE PO SCH ×3 (06:20→22:36)
[2022-07-29] MEDS: INSULIN SLIDING SCALE (NOVOLOG) 1 VIAL SQ SCH ×4 (06:20→22:36)
[2022-07-29] MEDS: VANCOMYCIN ORAL SOLUTION 125 MG/2.5 ML PO SCH ×3 (06:33→18:17)
[2022-07-29 07:28] LABS: BASO % 1.2 % (0-2.0); EOS % 15.3 % (0-4.5); HEMOGLOBIN 9.1 GM/dL (10.7-15.3); LYMPH % 12.5 % (8-40); MCH 31.4 pg (25.7-33.7); MCHC 33.8 g/dl (32.0-36.0); MEAN CELL VOLUME 93.1 fl (80-96); MEAN PLT VOLUME 8.4 fl (7.5-11.1); MONO % 8.5 % (3.8-10.2); NEUT % 62.5 % (42.8-82.8); PLATELET COUNT 96 10^3/uL (134-434); RDW 16.7 % (11.6-15.6); WHITE BLOOD COUNT 5.6 K/mm3 (4.0-10.0)
[2022-07-29 07:49] LABS: POTASSIUM 3.8 mmol/L (3.5-5.1)
[2022-07-29 07:50] LABS: CALCIUM 8.1 mg/dL (8.5-10.1)
[2022-07-29 07:51] LABS: ALBUMIN 2.6 g/dl (3.4-5.0); BLOOD UREA NITROGEN 80.8 mg/dL (7-18)
[2022-07-29 07:54] LABS: CREATININE 6.8 mg/dL (0.55-1.3)
[2022-07-29 07:56] LABS: BILIRUBIN,TOTAL 0.4 mg/dL (0.2-1); TOT PROT 7.2 g/dl (6.4-8.2)
[2022-07-29] MEDS: HEPARIN NA (PORCINE) 5,000 UNITS/ML 1ML VIAL SQ SCH ×2 (10:03→22:36)
[2022-07-29] MEDS: amLODIPine BESYLATE 5 MG TABLET (FP) PO SCH (10:03)
[2022-07-29] MEDS: LACTOBACILLUS ACIDOPHILUS 1 TABLET PO SCH (10:03)
[2022-07-29] MEDS: VITAMIN B COMP W-C 1 EA TABLET (NEPHRO-VITE) PO SCH (10:03)
[2022-07-29] MEDS ORDERED: SODIUM CHLORIDE 250 ML IV PRN (17:35)
[2022-07-30] MEDS: INSULIN SLIDING SCALE (NOVOLOG) 1 VIAL SQ SCH ×4 (06:29→21:07)
[2022-07-30] MEDS: GABAPENTIN 100 MG CAPSULE PO SCH ×3 (06:29→21:07)
[2022-07-30] MEDS: VANCOMYCIN ORAL SOLUTION 125 MG/2.5 ML PO SCH ×4 (06:30→17:06)
[2022-07-30] MEDS: amLODIPine BESYLATE 5 MG TABLET (FP) PO SCH ×2 (06:58→09:38)
[2022-07-30] MEDS: LACTOBACILLUS ACIDOPHILUS 1 TABLET PO SCH (10:06)
[2022-07-30] MEDS: VITAMIN B COMP W-C 1 EA TABLET (NEPHRO-VITE) PO SCH (10:07)
[2022-07-30] MEDS: HEPARIN NA (PORCINE) 5,000 UNITS/ML 1ML VIAL SQ SCH ×2 (10:07→21:07)
[2022-07-31] MEDS: VANCOMYCIN ORAL SOLUTION 125 MG/2.5 ML PO SCH ×4 (00:15→17:21)
[2022-07-31] MEDS: GABAPENTIN 100 MG CAPSULE PO SCH ×3 (05:54→22:27)
[2022-07-31] MEDS: INSULIN SLIDING SCALE (NOVOLOG) 1 VIAL SQ SCH ×4 (06:01→22:49)
[2022-07-31] MEDS: amLODIPine BESYLATE 5 MG TABLET (FP) PO SCH (10:27)
[2022-07-31] MEDS: VITAMIN B COMP W-C 1 EA TABLET (NEPHRO-VITE) PO SCH (10:27)
[2022-07-31] MEDS: LOSARTAN POTASSIUM 50 MG TABLET PO SCH (10:27)
[2022-07-31] MEDS: HEPARIN NA (PORCINE) 5,000 UNITS/ML 1ML VIAL SQ SCH ×2 (10:27→22:28)
[2022-07-31] MEDS: LACTOBACILLUS ACIDOPHILUS 1 TABLET PO SCH (10:43)
[2022-08-01] MEDS: VANCOMYCIN ORAL SOLUTION 125 MG/2.5 ML PO SCH ×5 (00:03→23:56)
[2022-08-01] MEDS: GABAPENTIN 100 MG CAPSULE PO SCH ×3 (05:53→21:43)
[2022-08-01] MEDS: INSULIN SLIDING SCALE (NOVOLOG) 1 VIAL SQ SCH ×4 (06:04→21:50)
[2022-08-01] MEDS: LOSARTAN POTASSIUM 50 MG TABLET PO SCH (09:03)
[2022-08-01] MEDS: VITAMIN B COMP W-C 1 EA TABLET (NEPHRO-VITE) PO SCH (09:03)
[2022-08-01] MEDS: LACTOBACILLUS ACIDOPHILUS 1 TABLET PO SCH (09:03)
[2022-08-01] MEDS: amLODIPine BESYLATE 5 MG TABLET (FP) PO SCH (09:03)
[2022-08-01] MEDS: HEPARIN NA (PORCINE) 5,000 UNITS/ML 1ML VIAL SQ SCH ×2 (09:03→21:44)
[2022-08-01] MEDS ORDERED: SODIUM CHLORIDE 250 ML IV PRN (16:40)
[2022-08-01] MEDS ORDERED: EPOETIN ALFA-EPBX 10,000 UNIT/ML VIAL SQ ONE (16:45)
[2022-08-01] MEDS: hydrALAZINE HCL 25 MG TABLET (FP) PO SCH ×2 (16:45→21:43)
[2022-08-01 17:01] LABS: HEMATOCRIT 25.7 % (32.4-45.2); HEMOGLOBIN 8.3 GM/dL (10.7-15.3); MCH 30.4 pg (25.7-33.7); MCHC 32.5 g/dl (32.0-36.0); MEAN CELL VOLUME 93.4 fl (80-96); MEAN PLT VOLUME 7.4 fl (7.5-11.1); PLATELET COUNT 127 10^3/uL (134-434); RBC 2.75 M/mm3 (3.60-5.2); RDW 16.5 % (11.6-15.6); WHITE BLOOD COUNT 6.9 K/mm3 (4.0-10.0)
[2022-08-01 17:24] LABS: POTASSIUM 4.1 mmol/L (3.5-5.1)
[2022-08-01 17:27] LABS: CALCIUM 8.6 mg/dL (8.5-10.1)
[2022-08-01 17:28] LABS: BLOOD UREA NITROGEN 81.4 mg/dL (7-18)
[2022-08-01 17:35] LABS: CREATININE 7.4 mg/dL (0.55-1.3)
[2022-08-02] MEDS: VANCOMYCIN ORAL SOLUTION 125 MG/2.5 ML PO SCH ×3 (06:12→17:19)
[2022-08-02] MEDS: GABAPENTIN 100 MG CAPSULE PO SCH ×3 (06:13→21:07)
[2022-08-02] MEDS: hydrALAZINE HCL 25 MG TABLET (FP) PO SCH ×3 (06:13→21:07)
[2022-08-02] MEDS: INSULIN SLIDING SCALE (NOVOLOG) 1 VIAL SQ SCH ×4 (06:17→21:19)
[2022-08-02] MEDS: LACTOBACILLUS ACIDOPHILUS 1 TABLET PO SCH (09:06)
[2022-08-02] MEDS: VITAMIN B COMP W-C 1 EA TABLET (NEPHRO-VITE) PO SCH (09:06)
[2022-08-02] MEDS: amLODIPine BESYLATE 5 MG TABLET (FP) PO SCH (09:06)
[2022-08-02] MEDS: LOSARTAN POTASSIUM 50 MG TABLET PO SCH (09:06)
[2022-08-02] MEDS: HEPARIN NA (PORCINE) 5,000 UNITS/ML 1ML VIAL SQ SCH ×2 (09:07→21:07)
[2022-08-03] MEDS: VANCOMYCIN ORAL SOLUTION 125 MG/2.5 ML PO SCH ×4 (00:22→17:28)
[2022-08-03] MEDS: hydrALAZINE HCL 25 MG TABLET (FP) PO SCH ×3 (05:58→21:46)
[2022-08-03] MEDS: GABAPENTIN 100 MG CAPSULE PO SCH ×3 (05:59→21:46)
[2022-08-03] MEDS: INSULIN SLIDING SCALE (NOVOLOG) 1 VIAL SQ SCH ×3 (06:06→16:47)
[2022-08-03] MEDS ORDERED: EPOETIN ALFA-EPBX 10,000 UNIT/ML VIAL IVPUSH ONE (08:00)
[2022-08-03] MEDS ORDERED: SODIUM CHLORIDE 250 ML IV PRN (08:00)
[2022-08-03] MEDS: LACTOBACILLUS ACIDOPHILUS 1 TABLET PO SCH (11:55)
[2022-08-03] MEDS: LOSARTAN POTASSIUM 50 MG TABLET PO SCH (11:56)
[2022-08-03] MEDS: HEPARIN NA (PORCINE) 5,000 UNITS/ML 1ML VIAL SQ SCH ×2 (11:56→21:46)
[2022-08-03] MEDS: amLODIPine BESYLATE 5 MG TABLET (FP) PO SCH (11:56)
[2022-08-03] MEDS: VITAMIN B COMP W-C 1 EA TABLET (NEPHRO-VITE) PO SCH (11:56)
[2022-08-03 14:40] LABS: HEMATOCRIT 25.3 % (32.4-45.2); HEMOGLOBIN 8.2 GM/dL (10.7-15.3); MCH 30.6 pg (25.7-33.7); MCHC 32.3 g/dl (32.0-36.0); MEAN CELL VOLUME 94.7 fl (80-96); MEAN PLT VOLUME 7.8 fl (7.5-11.1); PLATELET COUNT 123 10^3/uL (134-434); RBC 2.67 M/mm3 (3.60-5.2); RDW 16.8 % (11.6-15.6); WHITE BLOOD COUNT 7.4 K/mm3 (4.0-10.0)
[2022-08-03 15:09] LABS: POTASSIUM 3.9 mmol/L (3.5-5.1)
[2022-08-03 15:12] LABS: ALBUMIN 2.5 g/dl (3.4-5.0); CALCIUM 8.9 mg/dL (8.5-10.1)
[2022-08-03 15:13] LABS: BLOOD UREA NITROGEN 60.5 mg/dL (7-18)
[2022-08-03 15:16] LABS: CREATININE 5.8 mg/dL (0.55-1.3)
[2022-08-03 15:17] LABS: BILIRUBIN,TOTAL 0.4 mg/dL (0.2-1); TOT PROT 7.1 g/dl (6.4-8.2)
[2022-08-03] MEDS: ACETAMINOPHEN 325 MG TABLET (FP) PO PRN (21:46)
[2022-08-04] MEDS: INSULIN SLIDING SCALE (NOVOLOG) 1 VIAL SQ SCH ×5 (00:14→22:16)
[2022-08-04] MEDS: VANCOMYCIN ORAL SOLUTION 125 MG/2.5 ML PO SCH ×5 (00:15→23:30)
[2022-08-04] MEDS: hydrALAZINE HCL 25 MG TABLET (FP) PO SCH ×3 (05:25→21:53)
[2022-08-04] MEDS: GABAPENTIN 100 MG CAPSULE PO SCH ×3 (05:26→21:53)
[2022-08-04] MEDS: LACTOBACILLUS ACIDOPHILUS 1 TABLET PO SCH (09:27)
[2022-08-04] MEDS: amLODIPine BESYLATE 5 MG TABLET (FP) PO SCH (09:27)
[2022-08-04] MEDS: LOSARTAN POTASSIUM 50 MG TABLET PO SCH (09:27)
[2022-08-04] MEDS: HEPARIN NA (PORCINE) 5,000 UNITS/ML 1ML VIAL SQ SCH ×2 (09:28→21:53)
[2022-08-04] MEDS: VITAMIN B COMP W-C 1 EA TABLET (NEPHRO-VITE) PO SCH (09:28)
[2022-08-04] MEDS: ESCITALOPRAM OXALATE 10 MG TABLET PO SCH (09:28)
[2022-08-04] MEDS: ACETAMINOPHEN 325 MG TABLET (FP) PO PRN (22:40)
[2022-08-05] MEDS: VANCOMYCIN ORAL SOLUTION 125 MG/2.5 ML PO SCH ×3 (05:41→17:15)
[2022-08-05] MEDS: hydrALAZINE HCL 25 MG TABLET (FP) PO SCH ×4 (05:41→21:00)
[2022-08-05] MEDS: GABAPENTIN 100 MG CAPSULE PO SCH ×5 (05:52→22:54)
[2022-08-05] MEDS: INSULIN SLIDING SCALE (NOVOLOG) 1 VIAL SQ SCH ×4 (06:08→21:00)
[2022-08-05] MEDS: amLODIPine BESYLATE 5 MG TABLET (FP) PO SCH (09:33)
[2022-08-05] MEDS: VITAMIN B COMP W-C 1 EA TABLET (NEPHRO-VITE) PO SCH (09:33)
[2022-08-05] MEDS: ESCITALOPRAM OXALATE 10 MG TABLET PO SCH (09:35)
[2022-08-05] MEDS: LOSARTAN POTASSIUM 50 MG TABLET PO SCH (09:35)
[2022-08-05] MEDS: HEPARIN NA (PORCINE) 5,000 UNITS/ML 1ML VIAL SQ SCH ×3 (09:36→21:03)
[2022-08-05] MEDS: LACTOBACILLUS ACIDOPHILUS 1 TABLET PO SCH (09:36)
[2022-08-06] MEDS: VANCOMYCIN ORAL SOLUTION 125 MG/2.5 ML PO SCH ×5 (00:29→23:15)
[2022-08-06] MEDS: hydrALAZINE HCL 25 MG TABLET (FP) PO SCH ×3 (06:16→22:19)
[2022-08-06] MEDS: GABAPENTIN 100 MG CAPSULE PO SCH ×3 (06:16→22:17)
[2022-08-06] MEDS: INSULIN SLIDING SCALE (NOVOLOG) 1 VIAL SQ SCH ×4 (06:29→22:20)
[2022-08-06] MEDS ORDERED: SODIUM CHLORIDE 250 ML IV PRN (06:55)
[2022-08-06] MEDS ORDERED: EPOETIN ALFA-EPBX 10,000 UNIT/ML VIAL SQ ONE (08:00)
[2022-08-06] MEDS: LOSARTAN POTASSIUM 50 MG TABLET PO SCH ×2 (09:52→11:24)
[2022-08-06] MEDS: VITAMIN B COMP W-C 1 EA TABLET (NEPHRO-VITE) PO SCH (09:52)
[2022-08-06] MEDS: ESCITALOPRAM OXALATE 10 MG TABLET PO SCH (09:53)
[2022-08-06] MEDS: LACTOBACILLUS ACIDOPHILUS 1 TABLET PO SCH (09:54)
[2022-08-06] MEDS: amLODIPine BESYLATE 5 MG TABLET (FP) PO SCH ×2 (09:54→11:27)
[2022-08-06] MEDS: HEPARIN NA (PORCINE) 5,000 UNITS/ML 1ML VIAL SQ SCH ×2 (09:56→22:19)
[2022-08-07] MEDS: ACETAMINOPHEN 325 MG TABLET (FP) PO PRN (02:43)
[2022-08-07] MEDS: GABAPENTIN 100 MG CAPSULE PO SCH ×3 (06:45→21:45)
[2022-08-07] MEDS: VANCOMYCIN ORAL SOLUTION 125 MG/2.5 ML PO SCH ×4 (06:45→23:50)
[2022-08-07] MEDS: hydrALAZINE HCL 25 MG TABLET (FP) PO SCH ×3 (06:45→21:28)
[2022-08-07] MEDS: INSULIN SLIDING SCALE (NOVOLOG) 1 VIAL SQ SCH ×4 (06:48→21:45)
[2022-08-07] MEDS: ESCITALOPRAM OXALATE 10 MG TABLET PO SCH (11:11)
[2022-08-07] MEDS: HEPARIN NA (PORCINE) 5,000 UNITS/ML 1ML VIAL SQ SCH ×2 (11:11→21:28)
[2022-08-07] MEDS: LACTOBACILLUS ACIDOPHILUS 1 TABLET PO SCH (11:12)
[2022-08-07] MEDS: amLODIPine BESYLATE 5 MG TABLET (FP) PO SCH (11:12)
[2022-08-07] MEDS: VITAMIN B COMP W-C 1 EA TABLET (NEPHRO-VITE) PO SCH (11:13)
[2022-08-07] MEDS: LOSARTAN POTASSIUM 50 MG TABLET PO SCH (11:13)
[2022-08-08] MEDS: VANCOMYCIN ORAL SOLUTION 125 MG/2.5 ML PO SCH ×3 (05:49→17:25)
[2022-08-08] MEDS: GABAPENTIN 100 MG CAPSULE PO SCH ×2 (05:49→13:21)
[2022-08-08] MEDS: hydrALAZINE HCL 25 MG TABLET (FP) PO SCH ×2 (05:49→13:22)
[2022-08-08] MEDS: INSULIN SLIDING SCALE (NOVOLOG) 1 VIAL SQ SCH ×3 (06:34→16:57)
[2022-08-08] MEDS ORDERED: EPOETIN ALFA-EPBX 10,000 UNIT/ML VIAL SQ ONE (08:00)
[2022-08-08] MEDS ORDERED: SODIUM CHLORIDE 250 ML IV PRN (08:00)
[2022-08-08] MEDS: LACTOBACILLUS ACIDOPHILUS 1 TABLET PO SCH (11:28)
[2022-08-08] MEDS: HEPARIN NA (PORCINE) 5,000 UNITS/ML 1ML VIAL SQ SCH (11:28)
[2022-08-08] MEDS: ESCITALOPRAM OXALATE 10 MG TABLET PO SCH ×2 (11:28→11:30)
[2022-08-08] MEDS: LOSARTAN POTASSIUM 50 MG TABLET PO SCH (11:28)
[2022-08-08] MEDS: VITAMIN B COMP W-C 1 EA TABLET (NEPHRO-VITE) PO SCH (11:28)
[2022-08-08] MEDS: amLODIPine BESYLATE 5 MG TABLET (FP) PO SCH (11:29)
[2022-08-08 18:06] VITALS: BP 147/70; PULSE 73; RESP 18; TEMP 98.4
== END 2022-08-08 20:35 | DRG 291 ==
LOC: JER 08:17 → JERBED 11:38 → J4S 13:56
PROVIDERS: ADMIT Family Medicine; ATTEND Family Medicine
PROC: 5A1D70Z Performance of Urinary Filtration, Intermittent, Less than 6 Hours Per Day (ICD-10-PCS; principal; 2022-07-25)
PROC: 5A1D70Z Performance of Urinary Filtration, Intermittent, Less than 6 Hours Per Day (ICD-10-PCS; 2022-07-27)
PROC: 5A1D70Z Performance of Urinary Filtration, Intermittent, Less than 6 Hours Per Day (ICD-10-PCS; 2022-07-30)
PROC: 5A1D70Z Performance of Urinary Filtration, Intermittent, Less than 6 Hours Per Day (ICD-10-PCS; 2022-08-01)
PROC: 5A1D70Z Performance of Urinary Filtration, Intermittent, Less than 6 Hours Per Day (ICD-10-PCS; 2022-08-03)
PROC: 5A1D70Z Performance of Urinary Filtration, Intermittent, Less than 6 Hours Per Day (ICD-10-PCS; 2022-08-06)
PROC: 5A1D70Z Performance of Urinary Filtration, Intermittent, Less than 6 Hours Per Day (ICD-10-PCS; 2022-08-08)
DX: I13.2 Hypertensive heart and chronic kidney disease with heart failure and with stage 5 chronic kidney disease, or end stage renal disease (principal); N18.6 End stage renal disease; L97.518 Non-pressure chronic ulcer of other part of right foot with other specified severity; A04.72 Enterocolitis due to Clostridium difficile, not specified as recurrent; L97.428 Non-pressure chronic ulcer of left heel and midfoot with other specified severity; N39.0 Urinary tract infection, site not specified; E78.5 Hyperlipidemia, unspecified; I50.22 Chronic systolic (congestive) heart failure; K21.9 Gastro-esophageal reflux disease without esophagitis; E11.22 Type 2 diabetes mellitus with diabetic chronic kidney disease; J44.9 Chronic obstructive pulmonary disease, unspecified; I25.10 Atherosclerotic heart disease of native coronary artery without angina pectoris; G47.33 Obstructive sleep apnea (adult) (pediatric); D69.6 Thrombocytopenia, unspecified; E11.621 Type 2 diabetes mellitus with foot ulcer; D63.1 Anemia in chronic kidney disease; B95.2 Enterococcus as the cause of diseases classified elsewhere; B95.62 Methicillin resistant Staphylococcus aureus infection as the cause of diseases classified elsewhere; Z99.2 Dependence on renal dialysis
CPT/HCPCS: 36415; 71045-TC-FY; 73630-TC-RT-FY; 80048; 80053; 81003; 82803; 82962; 83690; 83735; 85025; 85027; 85651; 86140; 86704; 86706; 86803; 87040; 87045; 87046; 87070; 87086; 87186; 87205; 87324; 87340; 87449; 87635; 93005; 93010; 93971-TC; 93990-TC; 97116-GP; 97161-GP; 99285-25; C9803-CS; J1644; Q5106; U0003; U0005

== ENCOUNTER 2022-12-11 09:06 | Inpatient (IN) | payer OTHER, BC ==
[2022-12-11] MEDS ORDERED: METOCLOPRAMIDE HCL INJECTION 10 MG/2 ML VIAL IVPB ONE (11:37)
[2022-12-11] MEDS ORDERED: METOCLOPRAMIDE HCL INJECTION 10 MG/2 ML VIAL ONE (11:56)
[2022-12-11 12:38] LABS: BASO % 1.3 % (0-2.0); EOS % 4.3 % (0-4.5); HEMATOCRIT 34.4 % (32.4-45.2); HEMOGLOBIN 11.2 GM/dL (10.7-15.3); LYMPH % 7.9 % (8-40); MCH 30.4 pg (25.7-33.7); MCHC 32.6 g/dl (32.0-36.0); MEAN PLT VOLUME 7.7 fl (7.5-11.1); MONO % 6.4 % (3.8-10.2); NEUT % 80.1 % (42.8-82.8); PLATELET COUNT 160 10^3/uL (134-434); RDW 16.8 % (11.6-15.6)
[2022-12-11 13:06] LABS: CHLORIDE 105 mmol/L (98-107); SODIUM 137 mmol/L (136-145)
[2022-12-11 13:08] LABS: CALCIUM 8.5 mg/dL (8.5-10.1)
[2022-12-11 13:09] LABS: CO2 15 mmol/L (21-32); GLUCOSE,RANDOM 103 mg/dL (74-106)
[2022-12-11 13:12] LABS: SGOT/AST 41 U/L (15-37); SGPT/ALT 44 U/L (13-61)
[2022-12-11 13:13] LABS: TOT PROT 7.9 g/dl (6.4-8.2)
[2022-12-11 13:14] LABS: BILIRUBIN,TOTAL 0.4 mg/dL (0.2-1)
[2022-12-11 13:15] LABS: ALK PHOS 233 U/L (45-117)
[2022-12-11 13:24] LABS: ANION GAP 17 MMOL/L (8-16); BLOOD UREA NITROGEN 182.2 mg/dL (7-18); CREATININE 10.5 mg/dL (0.55-1.3)
[2022-12-11] MEDS ORDERED: SODIUM CHLORIDE 250 ML IV PRN (13:44)
[2022-12-11] MEDS: INSULIN SLIDING SCALE (NOVOLOG) 1 VIAL SQ SCH ×2 (18:00→21:06)
[2022-12-11] MEDS ORDERED: GABAPENTIN 300 MG CAPSULE ONE (21:09)
[2022-12-11] MEDS ORDERED: hydrALAZINE HCL 25 MG TABLET (FP) ONE (21:09)
[2022-12-11] MEDS: hydrALAZINE HCL 25 MG TABLET (FP) PO SCH (21:11)
[2022-12-11] MEDS: GABAPENTIN 300 MG CAPSULE PO SCH (21:11)
[2022-12-12 00:52] VITALS: BMI 23.6
[2022-12-12] MEDS: INSULIN SLIDING SCALE (NOVOLOG) 1 VIAL SQ SCH ×4 (06:18→21:57)
[2022-12-12] MEDS: GABAPENTIN 300 MG CAPSULE PO SCH ×3 (06:19→21:57)
[2022-12-12] MEDS: hydrALAZINE HCL 25 MG TABLET (FP) PO SCH ×3 (06:19→21:57)
[2022-12-12] MEDS: LOSARTAN POTASSIUM 50 MG TABLET PO SCH (10:14)
[2022-12-12] MEDS: amLODIPine BESYLATE 5 MG TABLET (FP) PO SCH (10:15)
[2022-12-12] MEDS: ESCITALOPRAM OXALATE 10 MG TABLET PO SCH (10:15)
[2022-12-12] MEDS ORDERED: FUROSEMIDE 40 MG/4 ML INJECTABLE VIAL IVPUSH ONE ×2 (12:31→14:40)
[2022-12-12] MEDS ORDERED: SODIUM CHLORIDE 250 ML IV PRN (12:34)
[2022-12-12 14:01] LABS: POTASSIUM 4.4 mmol/L (3.5-5.1)
[2022-12-12 14:03] LABS: CALCIUM 8.1 mg/dL (8.5-10.1)
[2022-12-12 14:06] LABS: CREATININE 7.1 mg/dL (0.55-1.3)
[2022-12-13] MEDS: hydrALAZINE HCL 25 MG TABLET (FP) PO SCH ×3 (06:48→21:05)
[2022-12-13] MEDS: GABAPENTIN 300 MG CAPSULE PO SCH ×3 (06:49→21:05)
[2022-12-13] MEDS: INSULIN SLIDING SCALE (NOVOLOG) 1 VIAL SQ SCH ×4 (06:49→21:06)
[2022-12-13] MEDS: amLODIPine BESYLATE 5 MG TABLET (FP) PO SCH (09:56)
[2022-12-13] MEDS: LOSARTAN POTASSIUM 50 MG TABLET PO SCH (09:56)
[2022-12-13] MEDS: ESCITALOPRAM OXALATE 10 MG TABLET PO SCH (10:31)
[2022-12-13 11:30] LABS: BASO % 1.2 % (0-2.0); EOS % 8.2 % (0-4.5); HEMATOCRIT 30.4 % (32.4-45.2); HEMOGLOBIN 9.7 GM/dL (10.7-15.3); LYMPH % 14.8 % (8-40); MCHC 31.8 g/dl (32.0-36.0); MEAN CELL VOLUME 94.3 fl (80-96); MEAN PLT VOLUME 7.2 fl (7.5-11.1); MONO % 9.8 % (3.8-10.2); PLATELET COUNT 125 10^3/uL (134-434); RBC 3.23 M/mm3 (3.60-5.2); RDW 16.9 % (11.6-15.6); WHITE BLOOD COUNT 4.3 K/mm3 (4.0-10.0)
[2022-12-13 12:00] LABS: CHLORIDE 101 mmol/L (98-107); POTASSIUM 4.6 mmol/L (3.5-5.1); SODIUM 137 mmol/L (136-145)
[2022-12-13 12:04] LABS: ALBUMIN 2.5 g/dl (3.4-5.0); ANION GAP 13 MMOL/L (8-16); CALCIUM 8.1 mg/dL (8.5-10.1); CO2 23 mmol/L (21-32); GLUCOSE,RANDOM 139 mg/dL (74-106)
[2022-12-13 12:07] LABS: SGOT/AST 13 U/L (15-37); SGPT/ALT 27 U/L (13-61)
[2022-12-13 12:09] LABS: ALK PHOS 184 U/L (45-117); BILIRUBIN,TOTAL 0.3 mg/dL (0.2-1); BLOOD UREA NITROGEN 108.1 mg/dL (7-18); CREATININE 8.1 mg/dL (0.55-1.3); TOT PROT 6.7 g/dl (6.4-8.2)
[2022-12-13] MEDS ORDERED: SODIUM CHLORIDE NASAL SPRAY 44 ML BOTTLE NS PRN (13:27)
[2022-12-14] MEDS: ACETAMINOPHEN 325 MG TABLET (FP) PO PRN (01:29)
[2022-12-14] MEDS: hydrALAZINE HCL 25 MG TABLET (FP) PO SCH ×3 (06:15→22:20)
[2022-12-14] MEDS: GABAPENTIN 300 MG CAPSULE PO SCH ×3 (06:16→22:21)
[2022-12-14] MEDS: INSULIN SLIDING SCALE (NOVOLOG) 1 VIAL SQ SCH ×4 (06:20→22:34)
[2022-12-14 08:17] LABS: BASO % 1.3 % (0-2.0); EOS % 7.1 % (0-4.5); HEMATOCRIT 30.7 % (32.4-45.2); HEMOGLOBIN 10.1 GM/dL (10.7-15.3); LYMPH % 12.9 % (8-40); MCH 30.5 pg (25.7-33.7); MEAN CELL VOLUME 92.3 fl (80-96); MEAN PLT VOLUME 7.3 fl (7.5-11.1); NEUT % 70.7 % (42.8-82.8); PLATELET COUNT 99 10^3/uL (134-434); RBC 3.32 M/mm3 (3.60-5.2); RDW 16.8 % (11.6-15.6); WHITE BLOOD COUNT 4.6 K/mm3 (4.0-10.0)
[2022-12-14 08:54] LABS: CALCIUM 8.2 mg/dL (8.5-10.1)
[2022-12-14 08:57] LABS: CREATININE 5.7 mg/dL (0.55-1.3)
[2022-12-14 08:59] LABS: BLOOD UREA NITROGEN 65.3 mg/dL (7-18)
[2022-12-14] MEDS: LOSARTAN POTASSIUM 50 MG TABLET PO SCH (10:35)
[2022-12-14] MEDS: amLODIPine BESYLATE 5 MG TABLET (FP) PO SCH (10:35)
[2022-12-14] MEDS: ESCITALOPRAM OXALATE 10 MG TABLET PO SCH (10:43)
[2022-12-14] MEDS: PANTOPRAZOLE 40 MG TABLET PO SCH (12:15)
[2022-12-14] MEDS ORDERED: SODIUM CHLORIDE 250 ML IV PRN (15:57)
[2022-12-15] MEDS: ACETAMINOPHEN 325 MG TABLET (FP) PO PRN (00:26)
[2022-12-15] MEDS: GABAPENTIN 300 MG CAPSULE PO SCH ×3 (05:50→22:19)
[2022-12-15] MEDS: hydrALAZINE HCL 25 MG TABLET (FP) PO SCH ×3 (06:10→22:19)
[2022-12-15] MEDS: INSULIN SLIDING SCALE (NOVOLOG) 1 VIAL SQ SCH ×4 (06:10→22:25)
[2022-12-15] MEDS ORDERED: EPOETIN ALFA-EPBX 4,000 UNIT/ML VIAL IVPUSH ONE (09:00)
[2022-12-15 09:22] LABS: HEMATOCRIT 31.5 % (32.4-45.2); HEMOGLOBIN 10.4 GM/dL (10.7-15.3); MCH 30.4 pg (25.7-33.7); MCHC 33.1 g/dl (32.0-36.0); MEAN CELL VOLUME 91.8 fl (80-96); MEAN PLT VOLUME 7.5 fl (7.5-11.1); PLATELET COUNT 102 10^3/uL (134-434); RBC 3.43 M/mm3 (3.60-5.2); RDW 16.5 % (11.6-15.6); WHITE BLOOD COUNT 5.1 K/mm3 (4.0-10.0)
[2022-12-15] MEDS ORDERED: HEPARIN NA (PORCINE) 5,000 UNITS/ML 1ML VIAL IVPUSH ONE (09:30)
[2022-12-15 09:47] LABS: POTASSIUM 4.1 mmol/L (3.5-5.1)
[2022-12-15 09:48] LABS: CALCIUM 8.2 mg/dL (8.5-10.1)
[2022-12-15 09:49] LABS: BLOOD UREA NITROGEN 89.8 mg/dL (7-18)
[2022-12-15 09:56] LABS: CREATININE 7.4 mg/dL (0.55-1.3)
[2022-12-15] MEDS: PANTOPRAZOLE 40 MG TABLET PO SCH (12:18)
[2022-12-15] MEDS: LOSARTAN POTASSIUM 50 MG TABLET PO SCH (12:19)
[2022-12-15] MEDS: ESCITALOPRAM OXALATE 10 MG TABLET PO SCH (12:19)
[2022-12-15] MEDS: amLODIPine BESYLATE 5 MG TABLET (FP) PO SCH (12:19)
[2022-12-16] MEDS: hydrALAZINE HCL 25 MG TABLET (FP) PO SCH ×3 (05:57→21:43)
[2022-12-16] MEDS: GABAPENTIN 300 MG CAPSULE PO SCH ×3 (05:58→21:43)
[2022-12-16] MEDS: INSULIN SLIDING SCALE (NOVOLOG) 1 VIAL SQ SCH ×4 (06:05→21:42)
[2022-12-16 08:33] LABS: BASO % 0.9 % (0-2.0); EOS % 9.7 % (0-4.5); HEMATOCRIT 33.9 % (32.4-45.2); HEMOGLOBIN 10.9 GM/dL (10.7-15.3); LYMPH % 11.1 % (8-40); MCH 29.9 pg (25.7-33.7); MCHC 32.2 g/dl (32.0-36.0); MONO % 7.2 % (3.8-10.2); NEUT % 71.1 % (42.8-82.8); PLATELET COUNT 89 10^3/uL (134-434); RBC 3.65 M/mm3 (3.60-5.2); RDW 16.6 % (11.6-15.6); WHITE BLOOD COUNT 4.5 K/mm3 (4.0-10.0)
[2022-12-16 08:52] LABS: POTASSIUM 4.3 mmol/L (3.5-5.1)
[2022-12-16 08:56] LABS: CALCIUM 8.5 mg/dL (8.5-10.1)
[2022-12-16 09:01] LABS: CREATININE 5.6 mg/dL (0.55-1.3)
[2022-12-16 09:17] LABS: BLOOD UREA NITROGEN 58.3 mg/dL (7-18)
[2022-12-16] MEDS: amLODIPine BESYLATE 5 MG TABLET (FP) PO SCH (11:00)
[2022-12-16] MEDS: LOSARTAN POTASSIUM 50 MG TABLET PO SCH (11:00)
[2022-12-16] MEDS: PANTOPRAZOLE 40 MG TABLET PO SCH (11:00)
[2022-12-16] MEDS: ESCITALOPRAM OXALATE 10 MG TABLET PO SCH (11:04)
[2022-12-16] MEDS ORDERED: MELATONIN 5 MG TABLETS PO PRN (20:43)
[2022-12-16] MEDS: guaiFENesin/D-METHORPHAN HB 10 ML UNIT-DOSE CUPS PO PRN (21:43)
[2022-12-17] MEDS: hydrALAZINE HCL 25 MG TABLET (FP) PO SCH ×3 (06:42→22:13)
[2022-12-17] MEDS: guaiFENesin/D-METHORPHAN HB 10 ML UNIT-DOSE CUPS PO PRN (06:42)
[2022-12-17] MEDS: INSULIN SLIDING SCALE (NOVOLOG) 1 VIAL SQ SCH ×4 (06:42→22:13)
[2022-12-17] MEDS: GABAPENTIN 300 MG CAPSULE PO SCH ×3 (06:42→22:13)
[2022-12-17 07:56] LABS: BASO % 1.8 % (0-2.0); EOS % 9.3 % (0-4.5); HEMATOCRIT 31.5 % (32.4-45.2); HEMOGLOBIN 10.3 GM/dL (10.7-15.3); LYMPH % 12.5 % (8-40); MCH 29.8 pg (25.7-33.7); MCHC 32.6 g/dl (32.0-36.0); MEAN CELL VOLUME 91.5 fl (80-96); MEAN PLT VOLUME 7.2 fl (7.5-11.1); MONO % 8.6 % (3.8-10.2); NEUT % 67.8 % (42.8-82.8); PLATELET COUNT 78 10^3/uL (134-434); RBC 3.45 M/mm3 (3.60-5.2); RDW 16.3 % (11.6-15.6); WHITE BLOOD COUNT 4.9 K/mm3 (4.0-10.0)
[2022-12-17 08:15] LABS: POTASSIUM 4.4 mmol/L (3.5-5.1)
[2022-12-17 08:18] LABS: ALBUMIN 2.7 g/dl (3.4-5.0)
[2022-12-17 08:19] LABS: BLOOD UREA NITROGEN 79.5 mg/dL (7-18); CALCIUM 7.8 mg/dL (8.5-10.1)
[2022-12-17 08:23] LABS: BILIRUBIN,TOTAL 0.4 mg/dL (0.2-1); TOT PROT 7.1 g/dl (6.4-8.2)
[2022-12-17] MEDS: LOSARTAN POTASSIUM 50 MG TABLET PO SCH (10:37)
[2022-12-17] MEDS: ESCITALOPRAM OXALATE 10 MG TABLET PO SCH (10:37)
[2022-12-17] MEDS: amLODIPine BESYLATE 5 MG TABLET (FP) PO SCH (10:37)
[2022-12-17] MEDS: PANTOPRAZOLE 40 MG TABLET PO SCH (10:37)
[2022-12-17] MEDS: ALBUTEROL SO4 2.5/IPRATROPIUM 0.5 INH SOL 3 ML VIAL.NEB. NEB SCH ×3 (11:25→21:05)
[2022-12-18] MEDS: INSULIN SLIDING SCALE (NOVOLOG) 1 VIAL SQ SCH ×4 (06:28→23:59)
[2022-12-18] MEDS: GABAPENTIN 300 MG CAPSULE PO SCH ×3 (06:28→23:53)
[2022-12-18] MEDS: hydrALAZINE HCL 25 MG TABLET (FP) PO SCH ×3 (06:29→23:47)
[2022-12-18] MEDS ORDERED: HEPARIN NA (PORCINE) 5,000 UNITS/ML 1ML VIAL ONE (07:23)
[2022-12-18] MEDS ORDERED: LIDOCAINE HCL 1%, 10 MG/ML (20ML VIAL) ONE ×2 (07:23→08:39)
[2022-12-18] MEDS: ALBUTEROL SO4 2.5/IPRATROPIUM 0.5 INH SOL 3 ML VIAL.NEB. NEB SCH ×3 (08:05→20:58)
[2022-12-18] MEDS ORDERED: ceFAZolin SODIUM 1 GM VIAL IVPB ONE (08:26)
[2022-12-18] MEDS ORDERED: LIDOCAINE HCL 1%, 10 MG/ML (20ML VIAL) INF ONE (08:39)
[2022-12-18] MEDS: ESCITALOPRAM OXALATE 10 MG TABLET PO SCH ×2 (09:04→11:29)
[2022-12-18] MEDS: amLODIPine BESYLATE 5 MG TABLET (FP) PO SCH ×2 (09:05→11:29)
[2022-12-18] MEDS: PANTOPRAZOLE 40 MG TABLET PO SCH (09:05)
[2022-12-18] MEDS: LOSARTAN POTASSIUM 50 MG TABLET PO SCH ×2 (09:05→11:29)
[2022-12-18] MEDS ORDERED: guaiFENesin/D-METHORPHAN HB 10 ML UNIT-DOSE CUPS PO PRN (09:32)
[2022-12-18] MEDS ORDERED: SODIUM CHLORIDE NASAL SPRAY 44 ML BOTTLE NS PRN (09:32)
[2022-12-18] MEDS ORDERED: MELATONIN 5 MG TABLETS PO PRN (09:32)
[2022-12-18] MEDS ORDERED: ACETAMINOPHEN 325 MG TABLET (FP) PO PRN (09:32)
[2022-12-18] MEDS ORDERED: ONDANSETRON 4 MG/2 ML VIAL IVPUSH PRN (09:44)
[2022-12-18] MEDS ORDERED: EPOETIN ALFA-EPBX 4,000 UNIT/ML VIAL SQ ONE (09:58)
[2022-12-18] MEDS ORDERED: SODIUM CHLORIDE 250 ML IV PRN (09:58)
[2022-12-18] MEDS ORDERED: PANTOPRAZOLE 40 MG TABLET PO SCH (10:00)
[2022-12-18] MEDS: SODIUM CHLORIDE 1,000 ML IV SCH (15:26)
[2022-12-19] MEDS: ALBUTEROL SO4 2.5/IPRATROPIUM 0.5 INH SOL 3 ML VIAL.NEB. NEB SCH ×5 (03:02→21:01)
[2022-12-19] MEDS: hydrALAZINE HCL 25 MG TABLET (FP) PO SCH ×3 (05:50→21:48)
[2022-12-19] MEDS: GABAPENTIN 300 MG CAPSULE PO SCH ×3 (06:23→21:51)
[2022-12-19] MEDS: INSULIN SLIDING SCALE (NOVOLOG) 1 VIAL SQ SCH ×4 (06:23→21:49)
[2022-12-19] MEDS ORDERED: FAMOTIDINE 10 MG TABLET PO SCH (10:00)
[2022-12-19] MEDS ORDERED: SODIUM CHLORIDE 250 ML IV PRN (10:00)
[2022-12-19] MEDS: LOSARTAN POTASSIUM 50 MG TABLET PO SCH (10:19)
[2022-12-19] MEDS: amLODIPine BESYLATE 5 MG TABLET (FP) PO SCH (10:20)
[2022-12-19] MEDS: ESCITALOPRAM OXALATE 10 MG TABLET PO SCH (10:20)
[2022-12-19] MEDS: VANCOMYCIN ORAL SOLUTION 125 MG/2.5 ML PO SCH (17:28)
[2022-12-20] MEDS: SODIUM CHLORIDE 1,000 ML IV SCH ×2 (00:22→12:54)
[2022-12-20] MEDS: VANCOMYCIN ORAL SOLUTION 125 MG/2.5 ML PO SCH ×4 (00:48→17:30)
[2022-12-20] MEDS: GABAPENTIN 300 MG CAPSULE PO SCH (05:49)
[2022-12-20] MEDS: hydrALAZINE HCL 25 MG TABLET (FP) PO SCH ×3 (05:49→21:23)
[2022-12-20] MEDS: INSULIN SLIDING SCALE (NOVOLOG) 1 VIAL SQ SCH ×4 (06:53→21:27)
[2022-12-20] MEDS: ALBUTEROL SO4 2.5/IPRATROPIUM 0.5 INH SOL 3 ML VIAL.NEB. NEB SCH ×4 (08:26→20:56)
[2022-12-20] MEDS ORDERED: SODIUM CHLORIDE 250 ML IV PRN (09:00)
[2022-12-20] MEDS ORDERED: EPOETIN ALFA-EPBX 4,000 UNIT/ML VIAL SQ ONE (09:00)
[2022-12-20] MEDS ORDERED: HEPARIN NA (PORCINE) 5,000 UNITS/ML 1ML VIAL IVPUSH ONE (10:00)
[2022-12-20 10:58] LABS: HEMATOCRIT 32.7 % (32.4-45.2); HEMOGLOBIN 10.2 GM/dL (10.7-15.3); MCH 29.6 pg (25.7-33.7); MCHC 31.3 g/dl (32.0-36.0); MEAN CELL VOLUME 94.4 fl (80-96); MEAN PLT VOLUME 7.9 fl (7.5-11.1); PLATELET COUNT 93 10^3/uL (134-434); RBC 3.47 M/mm3 (3.60-5.2); RDW 16.2 % (11.6-15.6); WHITE BLOOD COUNT 5.4 K/mm3 (4.0-10.0)
[2022-12-20 11:22] LABS: POTASSIUM 4.3 mmol/L (3.5-5.1)
[2022-12-20 11:24] LABS: CALCIUM 7.8 mg/dL (8.5-10.1)
[2022-12-20 11:25] LABS: BLOOD UREA NITROGEN 70.1 mg/dL (7-18)
[2022-12-20 11:28] LABS: CREATININE 6.6 mg/dL (0.55-1.3)
[2022-12-20] MEDS: ESCITALOPRAM OXALATE 10 MG TABLET PO SCH (13:25)
[2022-12-20] MEDS: LOSARTAN POTASSIUM 50 MG TABLET PO SCH (13:26)
[2022-12-20] MEDS: amLODIPine BESYLATE 5 MG TABLET (FP) PO SCH (13:26)
[2022-12-21] MEDS: VANCOMYCIN ORAL SOLUTION 125 MG/2.5 ML PO SCH ×4 (01:05→17:19)
[2022-12-21] MEDS: hydrALAZINE HCL 25 MG TABLET (FP) PO SCH ×3 (05:06→22:17)
[2022-12-21] MEDS: INSULIN SLIDING SCALE (NOVOLOG) 1 VIAL SQ SCH ×3 (06:43→17:24)
[2022-12-21] MEDS: ALBUTEROL SO4 2.5/IPRATROPIUM 0.5 INH SOL 3 ML VIAL.NEB. NEB SCH ×4 (08:36→20:55)
[2022-12-21] MEDS: SODIUM CHLORIDE 1,000 ML IV SCH (10:38)
[2022-12-21] MEDS: ESCITALOPRAM OXALATE 10 MG TABLET PO SCH ×2 (10:39→10:41)
[2022-12-21] MEDS: amLODIPine BESYLATE 5 MG TABLET (FP) PO SCH (10:39)
[2022-12-21] MEDS: LOSARTAN POTASSIUM 50 MG TABLET PO SCH (10:39)
[2022-12-22] MEDS: INSULIN SLIDING SCALE (NOVOLOG) 1 VIAL SQ SCH ×5 (00:13→22:06)
[2022-12-22] MEDS: VANCOMYCIN ORAL SOLUTION 125 MG/2.5 ML PO SCH ×4 (00:13→17:31)
[2022-12-22] MEDS: hydrALAZINE HCL 25 MG TABLET (FP) PO SCH ×3 (05:22→22:06)
[2022-12-22] MEDS ORDERED: SODIUM CHLORIDE 250 ML IV PRN (07:39)
[2022-12-22] MEDS ORDERED: EPOETIN ALFA-EPBX 4,000 UNIT/ML VIAL SQ ONE (09:00)
[2022-12-22 09:49] LABS: HEMATOCRIT 31.9 % (32.4-45.2); HEMOGLOBIN 10.6 GM/dL (10.7-15.3); MCH 30.2 pg (25.7-33.7); MCHC 33.3 g/dl (32.0-36.0); MEAN CELL VOLUME 90.6 fl (80-96); MEAN PLT VOLUME 8.4 fl (7.5-11.1); PLATELET COUNT 99 10^3/uL (134-434); RBC 3.52 M/mm3 (3.60-5.2); RDW 16.2 % (11.6-15.6)
[2022-12-22 09:52] LABS: POTASSIUM 3.9 mmol/L (3.5-5.1)
[2022-12-22 09:56] LABS: CALCIUM 8.6 mg/dL (8.5-10.1)
[2022-12-22 09:57] LABS: BLOOD UREA NITROGEN 66.5 mg/dL (7-18)
[2022-12-22 09:58] LABS: ALBUMIN 2.6 g/dl (3.4-5.0)
[2022-12-22 10:01] LABS: CREATININE 6.1 mg/dL (0.55-1.3)
[2022-12-22 10:02] LABS: BILIRUBIN,TOTAL 0.5 mg/dL (0.2-1)
[2022-12-22] MEDS: ALBUTEROL SO4 2.5/IPRATROPIUM 0.5 INH SOL 3 ML VIAL.NEB. NEB SCH ×4 (10:12→20:54)
[2022-12-22] MEDS: SODIUM CHLORIDE 1,000 ML IV SCH (12:31)
[2022-12-22] MEDS: LOSARTAN POTASSIUM 50 MG TABLET PO SCH (12:32)
[2022-12-22] MEDS: amLODIPine BESYLATE 5 MG TABLET (FP) PO SCH (12:33)
[2022-12-22] MEDS: ESCITALOPRAM OXALATE 10 MG TABLET PO SCH (12:33)
[2022-12-22] MEDS ORDERED: INSULIN (NOVOLOG) ASPART 100 UNITS/ML 10ML VIAL ONE (20:57)
[2022-12-23] MEDS: VANCOMYCIN ORAL SOLUTION 125 MG/2.5 ML PO SCH ×2 (00:22→06:31)
[2022-12-23 06:30] VITALS: BP 152/82; PULSE 67; RESP 18; TEMP 97.9
[2022-12-23] MEDS: hydrALAZINE HCL 25 MG TABLET (FP) PO SCH (06:31)
[2022-12-23] MEDS: INSULIN SLIDING SCALE (NOVOLOG) 1 VIAL SQ SCH (06:31)
[2022-12-23] MEDS: ALBUTEROL SO4 2.5/IPRATROPIUM 0.5 INH SOL 3 ML VIAL.NEB. NEB SCH (08:05)
[2022-12-23] MEDS: SODIUM CHLORIDE 1,000 ML IV SCH (09:36)
[2022-12-23] MEDS: LOSARTAN POTASSIUM 50 MG TABLET PO SCH (09:37)
[2022-12-23] MEDS: amLODIPine BESYLATE 5 MG TABLET (FP) PO SCH (09:37)
[2022-12-23] MEDS: ESCITALOPRAM OXALATE 10 MG TABLET PO SCH (09:37)
== END 2022-12-23 10:00 | disposition home or self-care (01) | DRG 628 ==
LOC: JER 09:06 → JERBED 14:28 → J4W 22:15
PROVIDERS: ADMIT Family Medicine; ATTEND Family Medicine
PROC: 5A1D70Z Performance of Urinary Filtration, Intermittent, Less than 6 Hours Per Day (ICD-10-PCS; 2022-12-11)
PROC: 5A1D70Z Performance of Urinary Filtration, Intermittent, Less than 6 Hours Per Day (ICD-10-PCS; 2022-12-13)
PROC: 5A1D70Z Performance of Urinary Filtration, Intermittent, Less than 6 Hours Per Day (ICD-10-PCS; 2022-12-15)
PROC: 5A1D70Z Performance of Urinary Filtration, Intermittent, Less than 6 Hours Per Day (ICD-10-PCS; 2022-12-18)
PROC: 057A3DZ Dilation of Left Brachial Vein with Intraluminal Device, Percutaneous Approach (ICD-10-PCS; principal; 2022-12-18 08:00)
PROC: 5A1D70Z Performance of Urinary Filtration, Intermittent, Less than 6 Hours Per Day (ICD-10-PCS; 2022-12-20)
PROC: 5A1D70Z Performance of Urinary Filtration, Intermittent, Less than 6 Hours Per Day (ICD-10-PCS; 2022-12-22)
DX: E87.70 Fluid overload, unspecified (principal); N18.6 End stage renal disease; I13.2 Hypertensive heart and chronic kidney disease with heart failure and with stage 5 chronic kidney disease, or end stage renal disease; A04.71 Enterocolitis due to Clostridium difficile, recurrent; T82.41XA Breakdown (mechanical) of vascular dialysis catheter, initial encounter; I50.22 Chronic systolic (congestive) heart failure; E11.51 Type 2 diabetes mellitus with diabetic peripheral angiopathy without gangrene; K21.9 Gastro-esophageal reflux disease without esophagitis; I25.10 Atherosclerotic heart disease of native coronary artery without angina pectoris; K58.9 Irritable bowel syndrome, unspecified; E11.22 Type 2 diabetes mellitus with diabetic chronic kidney disease; Z99.2 Dependence on renal dialysis; E78.5 Hyperlipidemia, unspecified; D64.9 Anemia, unspecified; D69.6 Thrombocytopenia, unspecified; F43.22 Adjustment disorder with anxiety; E87.5 Hyperkalemia; R10.31 Right lower quadrant pain; R80.9 Proteinuria, unspecified; Y83.8 Other surgical procedures as the cause of abnormal reaction of the patient, or of later complication, without mention of misadventure at the time of the procedure
CPT/HCPCS: 0241U-QW; 36415; 71045-TC-FY; 71046-TC-FY; 71250-TC; 74176-TC; 76000-TC-FY; 80048; 80053; 82962; 83540; 83550; 84484; 85025; 85027; 86704; 86803; 87040; 87045; 87046; 87186; 87205; 87209; 87324; 87340; 87449; 87493; 87517; 93005; 93010; 93990-TC; 94640; 94760; 97116-GP; 97161-GP; 99285-25; C1874; J1644; Q5106

== ENCOUNTER 2023-02-06 09:58 | Inpatient (IN) | payer OTHER, BC ==
[2023-02-06 11:17] LABS: INR 1.31 (0.83-1.09); PROTHROMBIN TIME (PATIENT) 15.2 SEC (9.7-13.0)
[2023-02-06 11:26] LABS: VENOUS BASE EXCESS -14.2 mmol/L (-2-2); VENOUS O2 SATURATION 88.4 % (70-80); VENOUS PCO2 36.6 mmHg (38-52)
[2023-02-06 11:29] LABS: VENOUS PH 7.178 (7.310-7.410)
[2023-02-06 11:31] LABS: CHLORIDE 103 mmol/L (98-107); SODIUM 139 mmol/L (136-145)
[2023-02-06 11:35] LABS: ALBUMIN 3.4 g/dl (3.4-5.0); CALCIUM 7.4 mg/dL (8.5-10.1); CO2 16 mmol/L (21-32); GLUCOSE,RANDOM 94 mg/dL (74-106)
[2023-02-06 11:37] LABS: BASO % 1.1 % (0-2.0); HEMATOCRIT 39.6 % (32.4-45.2); HEMOGLOBIN 12.7 GM/dL (10.7-15.3); LYMPH % 9.4 % (8-40); MCH 28.8 pg (25.7-33.7); MEAN CELL VOLUME 89.7 fl (80-96); MEAN PLT VOLUME 8.5 fl (7.5-11.1); MONO % 6.4 % (3.8-10.2); NEUT % 74.1 % (42.8-82.8); PLATELET COUNT 69 10^3/uL (134-434); RBC 4.42 M/mm3 (3.60-5.2); RDW 17.8 % (11.6-15.6); WHITE BLOOD COUNT 3.6 K/mm3 (4.0-10.0)
[2023-02-06 11:38] LABS: BILIRUBIN,TOTAL 0.6 mg/dL (0.2-1); SGOT/AST 24 U/L (15-37); SGPT/ALT 36 U/L (13-61); TOT PROT 7.9 g/dl (6.4-8.2)
[2023-02-06 11:39] LABS: ALK PHOS 182 U/L (45-117)
[2023-02-06 11:51] LABS: ANION GAP 20 mmol/L (4-13); BLOOD UREA NITROGEN 219.8 mg/dL (7-18); CREATININE 14.1 mg/dL (0.55-1.3); POTASSIUM 6.5 mmol/L (3.5-5.1)
[2023-02-06] MEDS ORDERED: INSULIN REGULAR HUMAN 100 UNITS/ML *VIAL IVPUSH ONE (12:44)
[2023-02-06] MEDS ORDERED: CALCIUM GLUCONATE 10% - 1,000 MG/10 ML VIAL IVPUSH ONE (12:45)
[2023-02-06] MEDS ORDERED: DEXTROSE 50%-WATER 25 GM/50 ML DISP.SYRIN IVPUSH ONE (12:45)
[2023-02-06] MEDS ORDERED: SODIUM BICARBONATE 8.4% 50 MEQ/50 ML DISP.SYRIN IVPUSH ONE (12:46)
[2023-02-06] MEDS ORDERED: SODIUM BICARBONATE 8.4% 50 MEQ/50 ML VIAL ONE (12:56)
[2023-02-06] MEDS ORDERED: CALCIUM CHLORIDE 1 GM/10 ML *DISP.SYRIN ONE (12:56)
[2023-02-06] MEDS ORDERED: INSULIN REGULAR HUMAN 100 UNITS/ML *VIAL ONE (12:57)
[2023-02-06] MEDS ORDERED: DEXTROSE 50%-WATER 25 GM/50 ML DISP.SYRIN ONE (12:59)
[2023-02-06] MEDS ORDERED: SODIUM CHLORIDE 250 ML IV PRN (13:14)
[2023-02-06] MEDS ORDERED: ACETAMINOPHEN 325 MG TABLET (FP) PO PRN (13:46)
[2023-02-06] MEDS ORDERED: ALBUTEROL SO4 2.5/IPRATROPIUM 0.5 INH SOL 3 ML VIAL.NEB. NEB PRN (13:46)
[2023-02-06] MEDS ORDERED: hydrALAZINE HCL 25 MG TABLET (FP) ONE (14:21)
[2023-02-06] MEDS ORDERED: hydrALAZINE HCL 50 MG TABLET (FP) ONE (14:23)
[2023-02-06] MEDS: hydrALAZINE HCL 25 MG TABLET (FP) PO SCH ×2 (14:40→21:47)
[2023-02-06] MEDS: INSULIN SLIDING SCALE (NOVOLOG) 1 VIAL SQ SCH ×2 (18:57→22:00)
[2023-02-06] MEDS ORDERED: hydrALAZINE HCL 25 MG TABLET (FP) PO ONE (19:41)
[2023-02-06] MEDS: VANCOMYCIN ORAL SOLUTION 125 MG/2.5 ML PO SCH (21:45)
[2023-02-07] MEDS: VANCOMYCIN ORAL SOLUTION 125 MG/2.5 ML PO SCH ×4 (00:46→18:02)
[2023-02-07] MEDS: hydrALAZINE HCL 25 MG TABLET (FP) PO SCH ×3 (06:47→22:16)
[2023-02-07] MEDS: INSULIN SLIDING SCALE (NOVOLOG) 1 VIAL SQ SCH ×4 (06:47→22:16)
[2023-02-07] MEDS ORDERED: SODIUM ZIRCONIUM CYCLOSILICATE (LOKELMA) 5 GM PACKET PO ONE (10:00)
[2023-02-07 10:30] LABS: ALK PHOS 137 U/L (45-117); ANION GAP 16 mmol/L (4-13); BILIRUBIN,TOTAL 0.6 mg/dL (0.2-1); BLOOD UREA NITROGEN 136.2 mg/dL (7-18); CALCIUM 7.2 mg/dL (8.5-10.1); CHLORIDE 103 mmol/L (98-107); CO2 21 mmol/L (21-32); GLUCOSE,RANDOM 157 mg/dL (74-106); POTASSIUM 4.9 mmol/L (3.5-5.1); SGOT/AST 22 U/L (15-37); SGPT/ALT 29 U/L (13-61); SODIUM 140 mmol/L (136-145)
[2023-02-07] MEDS ORDERED: INSULIN (NOVOLOG) ASPART 100 UNITS/ML 10ML VIAL ONE (11:17)
[2023-02-07] MEDS: LOSARTAN POTASSIUM 25 MG TABLET PO SCH (11:23)
[2023-02-07] MEDS: amLODIPine BESYLATE 5 MG TABLET (FP) PO SCH (11:23)
[2023-02-07] MEDS: ESCITALOPRAM OXALATE 10 MG TABLET PO SCH (11:23)
[2023-02-07] MEDS ORDERED: SODIUM CHLORIDE 250 ML IV PRN (16:53)
[2023-02-08] MEDS: VANCOMYCIN ORAL SOLUTION 125 MG/2.5 ML PO SCH ×4 (00:19→18:22)
[2023-02-08] MEDS: hydrALAZINE HCL 25 MG TABLET (FP) PO SCH ×3 (06:10→23:15)
[2023-02-08] MEDS: INSULIN SLIDING SCALE (NOVOLOG) 1 VIAL SQ SCH ×4 (06:15→23:15)
[2023-02-08] MEDS: amLODIPine BESYLATE 5 MG TABLET (FP) PO SCH (09:11)
[2023-02-08] MEDS: LOSARTAN POTASSIUM 25 MG TABLET PO SCH (09:11)
[2023-02-08] MEDS: ESCITALOPRAM OXALATE 10 MG TABLET PO SCH (09:11)
[2023-02-08 15:04] LABS: HEMATOCRIT 34.4 % (32.4-45.2); MCH 28.5 pg (25.7-33.7); MCHC 32.1 g/dl (32.0-36.0); MEAN PLT VOLUME 8.3 fl (7.5-11.1); PLATELET COUNT 57 10^3/uL (134-434); RBC 3.87 M/mm3 (3.60-5.2); RDW 17.5 % (11.6-15.6); WHITE BLOOD COUNT 3.7 K/mm3 (4.0-10.0)
[2023-02-08 15:21] LABS: CHLORIDE 100 mmol/L (98-107); POTASSIUM 4.9 mmol/L (3.5-5.1); SODIUM 136 mmol/L (136-145)
[2023-02-08 15:24] LABS: CALCIUM 7.4 mg/dL (8.5-10.1)
[2023-02-08 15:25] LABS: ALBUMIN 2.8 g/dl (3.4-5.0); ANION GAP 14 mmol/L (4-13); CO2 22 mmol/L (21-32); GLUCOSE,RANDOM 126 mg/dL (74-106)
[2023-02-08 15:28] LABS: BILIRUBIN,TOTAL 0.4 mg/dL (0.2-1); SGOT/AST 18 U/L (15-37); SGPT/ALT 25 U/L (13-61)
[2023-02-08 15:29] LABS: TOT PROT 6.5 g/dl (6.4-8.2)
[2023-02-08 15:30] LABS: ALK PHOS 117 U/L (45-117); BLOOD UREA NITROGEN 128.8 mg/dL (7-18); CREATININE 9.2 mg/dL (0.55-1.3)
[2023-02-09] MEDS: VANCOMYCIN ORAL SOLUTION 125 MG/2.5 ML PO SCH ×5 (00:30→23:41)
[2023-02-09] MEDS: hydrALAZINE HCL 25 MG TABLET (FP) PO SCH ×3 (07:21→22:46)
[2023-02-09] MEDS: INSULIN SLIDING SCALE (NOVOLOG) 1 VIAL SQ SCH ×4 (07:25→22:46)
[2023-02-09] MEDS ORDERED: FUROSEMIDE 40 MG/4 ML INJECTABLE VIAL IVPUSH ONE (09:56)
[2023-02-09] MEDS: ESCITALOPRAM OXALATE 10 MG TABLET PO SCH (10:36)
[2023-02-09] MEDS: amLODIPine BESYLATE 5 MG TABLET (FP) PO SCH (10:36)
[2023-02-09] MEDS: LOSARTAN POTASSIUM 25 MG TABLET PO SCH (10:37)
[2023-02-10] MEDS: hydrALAZINE HCL 25 MG TABLET (FP) PO SCH ×3 (05:22→22:52)
[2023-02-10] MEDS: VANCOMYCIN ORAL SOLUTION 125 MG/2.5 ML PO SCH ×4 (06:57→23:30)
[2023-02-10] MEDS: INSULIN SLIDING SCALE (NOVOLOG) 1 VIAL SQ SCH ×4 (06:57→22:52)
[2023-02-10] MEDS: LOSARTAN POTASSIUM 25 MG TABLET PO SCH (09:53)
[2023-02-10] MEDS: ESCITALOPRAM OXALATE 10 MG TABLET PO SCH (09:53)
[2023-02-10] MEDS: amLODIPine BESYLATE 5 MG TABLET (FP) PO SCH (09:53)
[2023-02-11] MEDS: INSULIN SLIDING SCALE (NOVOLOG) 1 VIAL SQ SCH ×5 (06:41→22:06)
[2023-02-11] MEDS: VANCOMYCIN ORAL SOLUTION 125 MG/2.5 ML PO SCH ×4 (06:41→18:15)
[2023-02-11] MEDS: hydrALAZINE HCL 25 MG TABLET (FP) PO SCH ×3 (06:41→22:06)
[2023-02-11] MEDS ORDERED: SODIUM CHLORIDE 250 ML IV PRN (09:25)
[2023-02-11] MEDS: amLODIPine BESYLATE 5 MG TABLET (FP) PO SCH ×2 (11:08→14:12)
[2023-02-11] MEDS: LOSARTAN POTASSIUM 25 MG TABLET PO SCH ×2 (11:08→14:12)
[2023-02-11] MEDS: ESCITALOPRAM OXALATE 10 MG TABLET PO SCH ×2 (11:08→14:12)
[2023-02-11 22:57] VITALS: RESP 18
[2023-02-12] MEDS: VANCOMYCIN ORAL SOLUTION 125 MG/2.5 ML PO SCH ×3 (01:01→11:10)
[2023-02-12] MEDS: hydrALAZINE HCL 25 MG TABLET (FP) PO SCH (06:10)
[2023-02-12] MEDS: INSULIN SLIDING SCALE (NOVOLOG) 1 VIAL SQ SCH ×2 (07:15→11:18)
[2023-02-12 10:01] VITALS: BP 149/70; PULSE 71; TEMP 97.5
[2023-02-12] MEDS: amLODIPine BESYLATE 5 MG TABLET (FP) PO SCH (11:08)
[2023-02-12] MEDS: ESCITALOPRAM OXALATE 10 MG TABLET PO SCH (11:08)
[2023-02-12] MEDS: LOSARTAN POTASSIUM 25 MG TABLET PO SCH (11:09)
[2023-02-12] MEDS ORDERED: FLUTICASONE PROP 0.05% 16 GM NASAL SPRAY NS SCH (12:00)
[2023-02-12 12:03] VITALS: BMI 23.6
[2023-02-13] MEDS ORDERED: AMINO ACIDS/PROTEIN HYDROLYS 30 ML LIQUID.PKT PO SCH (08:00)
[2023-02-13] MEDS ORDERED: VITAMIN B COMP W-C 1 EA TABLET (NEPHRO-VITE) PO SCH (10:00)
== END 2023-02-12 13:10 | DRG 640 ==
LOC: JER 09:58 → JERBED 12:49 → J8W 17:54
PROVIDERS: ADMIT Family Medicine; ATTEND Family Medicine
PROC: 5A1D70Z Performance of Urinary Filtration, Intermittent, Less than 6 Hours Per Day (ICD-10-PCS; principal; 2023-02-06)
PROC: 5A1D70Z Performance of Urinary Filtration, Intermittent, Less than 6 Hours Per Day (ICD-10-PCS; 2023-02-08)
PROC: 5A1D70Z Performance of Urinary Filtration, Intermittent, Less than 6 Hours Per Day (ICD-10-PCS; 2023-02-11)
DX: E87.5 Hyperkalemia (principal); N18.6 End stage renal disease; I13.2 Hypertensive heart and chronic kidney disease with heart failure and with stage 5 chronic kidney disease, or end stage renal disease; I50.22 Chronic systolic (congestive) heart failure; E11.51 Type 2 diabetes mellitus with diabetic peripheral angiopathy without gangrene; R68.0 Hypothermia, not associated with low environmental temperature; E11.22 Type 2 diabetes mellitus with diabetic chronic kidney disease; K21.9 Gastro-esophageal reflux disease without esophagitis; D64.9 Anemia, unspecified; K58.9 Irritable bowel syndrome, unspecified; I25.10 Atherosclerotic heart disease of native coronary artery without angina pectoris; Z91.199 Patient's noncompliance with other medical treatment and regimen due to unspecified reason; Z99.2 Dependence on renal dialysis
CPT/HCPCS: 0241U-QW; 36415; 71045-TC-FY; 74176-TC; 80053; 82550; 82553; 82803; 82962; 83605; 84443; 84484; 85025; 85027; 85610; 85730; 86704; 86803; 86850; 86900; 86901; 87040; 87340; 87517; 87635; 93005; 93010; 97116-GP; 97161-GP; 99285-25